=== PATIENT | female | born 1935 | race Caucasian/White ===

== ENCOUNTER → 2017-08-30 08:41 | Outpatient (CLI) | payer MEDICARE, OTHER, SELFPAY ==
--- NOTE | 2017-08-30 | DI.MG.S_ITS ---
BILATERAL DIGITAL SCREENING MAMMOGRAM 3D/2D WITH CAD: 08/30/2017 CLINICAL: Routine screening. Comparison is made to exams dated: 08/17/2016 mammogram, 08/17/2015 mammogram, and 08/12/2014 mammogram - [facility]. The tissue of both breasts is predominantly fatty. Current study was also evaluated with a Computer Aided Detection (CAD) system. No significant masses, calcifications, or other findings are seen in either breast. There has been no significant interval change. IMPRESSION: NEGATIVE There is no mammographic evidence of malignancy. A 1 year screening mammogram is recommended. NOTE: For mammograms, a report in lay terms will be sent to the patient. Approximately 15% of breast malignancies will not be visualized mammographically. In the management of a palpable breast mass, a negative mammogram must not discourage biopsy of a clinically suspicious lesion. Electronically Signed By: Caridad ramos/venus:08/30/2017 11:46:41 letter sent: Normal Exam ACR BI-RADS Category 1: Negative [id number]
== END ==
PROVIDERS: Visit Provider Family Medicine
DX: Z12.31 Encounter for screening mammogram for malignant neoplasm of breast (principal)
CPT/HCPCS: 77063; 77067

== ENCOUNTER → 2017-09-03 08:28 | Outpatient (CLI) | payer MEDICARE, OTHER, SELFPAY ==
[2017-09-03 09:29] LABS: Add Manual Diff / Slide Review NO; Basophils Percent Auto 1.2 % (0-2); Eosinophils Percent Auto 5.1 % (2-4); Hematocrit 46.4 % (36-46); Hemoglobin 15.7 g/dL (12.0-16.0); Lymphocytes Percent Auto 20.1 % (25-40); Mean Corpuscular HGB Conc 33.7 % (30-36); Mean Corpuscular Hemoglobin 31.5 PG (26-34); Mean Corpuscular Volume 93.5 fL (80-100); Monocytes Percent Auto 8.5 % (3-14); Neutrophils Absolute Auto 4600 /uL (3000-5900); Neutrophils Percent Auto 65.1 % (50-75); Platelet Count 225 X10^3/uL (150-400); Red Blood Cell Count 4.97 X10^6/uL (4.0-5.2); Red Cell Distribution Width 13.2 % (11.6-14.8)
[2017-09-03 09:52] LABS: Alanine Aminotransferase 41 IU/L (9-52); Albumin 4.1 g/dL (3.5-5.0); Albumin Globulin Ratio 1.2 (1.0-2.8); Alkaline Phosphatase 105 U/L (38-126); Aspartate Aminotransferase 35 IU/L (14-36); BUN Creatinine Ratio 22.5 (6-22); Bilirubin Total 0.7 mg/dL (0.2-1.3); Blood Urea Nitrogen 18 mg/dL (7-17); Calcium 9.3 mg/dL (8.4-10.2); Carbon Dioxide 28 mmol/L (22-32); Chloride 101 mmol/L (98-107); Cholesterol 184 mg/dL (140-199); Estimated Glomerular Filt Rate > 60.0 mL/min (>60); Globulin 3.4 g/dL (1.7-4.1); Glucose 146 mg/dL (80-110); HDL Cholesterol 41 mg/dL (40-60); HEMOLYSIS < 15 (0-50); LDL Cholesterol Calculated 111 mg/dL (<100); Potassium 4.6 mmol/L (3.4-5.1); Sodium 141 mmol/L (137-145); Total Protein 7.5 g/dL (6.3-8.2); Triglycerides 162 mg/dL (35-150)
[2017-09-03 10:21] LABS: Thyroid Stimulating Hormone 0.42 uIU/mL (0.47-4.68)
== END ==
PROVIDERS: Visit Provider Family Medicine
DX: I48.91 Unspecified atrial fibrillation (principal); I10 Essential (primary) hypertension; E05.90 Thyrotoxicosis, unspecified without thyrotoxic crisis or storm; K92.2 Gastrointestinal hemorrhage, unspecified; E04.1 Nontoxic single thyroid nodule; Z79.899 Other long term (current) drug therapy
CPT/HCPCS: 36415; 80053; 80061; 84443; 85025

== ENCOUNTER → 2018-09-09 13:31 | Outpatient (CLI) | payer MEDICARE, OTHER, SELFPAY ==
--- NOTE | 2018-09-09 | DI.MG.S_ITS ---
BILATERAL DIGITAL SCREENING MAMMOGRAM 3D/2D WITH CAD: 09/09/2018 CLINICAL: Routine screening. Comparison is made to exams dated: 08/30/2017 mammogram, 08/17/2016 mammogram, and 08/17/2015 mammogram - [facility]. There are scattered fibroglandular elements in both breasts. Current study was also evaluated with a Computer Aided Detection (CAD) system. There are benign calcifications in both breasts. No significant masses, calcifications, or other findings are seen in either breast. There has been no significant interval change. IMPRESSION: There is no mammographic evidence of malignancy. A 1 year screening mammogram is recommended. This exam was interpreted at Station ID: [id number]. NOTE: For mammograms, a report in lay terms will be sent to the patient. Approximately 15% of breast malignancies will not be visualized mammographically. In the management of a palpable breast mass, a negative mammogram must not discourage biopsy of a clinically suspicious lesion. Electronically Signed By: Aman power/venus:09/09/2018 17:25:35 letter sent: Normal Exam ACR BI-RADS Category 2: Benign Finding(s) 3342F
== END ==
PROVIDERS: PCP Family Medicine; Visit Provider Family Medicine
DX: Z12.31 Encounter for screening mammogram for malignant neoplasm of breast (principal)
CPT/HCPCS: 77063; 77067

== ENCOUNTER → 2019-07-02 11:58 | Outpatient (CLI) | payer MEDICARE, OTHER, SELFPAY ==
--- NOTE | 2019-07-02 | DI.CT.S_ITS ---
PROCEDURE: CT CHEST WO CON INDICATIONS: other specified disorders of bone TECHNIQUE: Noncontrast 5 mm thick sections acquired from the pulmonary apices to the posterior costophrenic angles. 1 mm lung window, 5 mm thick coronal and sagittal and 7 mm axial MIP reformats were then acquired. For radiation dose reduction, the following was used: automated exposure control, adjustment of mA and/or kV according to patient size. COMPARISON: [facility], CT, PE STUDY (CTA CHEST), 03/11/2014, 11:04. FINDINGS: Image quality: Excellent. Lungs and pleura: No acute air space opacities. Minimal linear scarring is noted within the lung parenchyma, there is no evidence of pulmonary fibrosis or emphysema. No pleural effusions or pneumothorax. Central and peripheral airways are patent and normal in caliber. Mediastinum: Heart size is normal. No pericardial effusion. No mediastinal adenopathy by size criteria. Thoracic aorta and central pulmonary arteries are normal in size. Esophagus is normal in caliber. No hiatal hernia. Bones and chest wall: No suspicious bony lesions. No vertebral body compression fractures. No axillary or supraclavicular adenopathy by size criteria. 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 Abdomen: Visualized upper abdominal solid organs and bowel loops appear normal in the absence of contrast. Mild nodularity at the inferior left adrenal gland, but stable over time from prior CT scanning in March 2014. IMPRESSION: Within the lung parenchyma peripherally, no source of shortness of breath was found. Heart size is not enlarged. Previously present large bilateral thyroid masses are absent, presumably associated with thyroidectomy. Note is made of mild lobular enlargement of the inferior aspect of the left thyroid lobe, previously present on contrast-enhanced CT scanning 03/11/14 and therefore no followup of this appearance is necessary. Dictated by: Clark Chambers M.D. on 07/02/2019 at 12:24 Approved by: Clark Chambers M.D. on 07/02/2019 at 12:30
--- NOTE | 2019-07-02 12:16 | DI.CT.S_ITS ---
PROCEDURE: CT KIDNEY URETER BLADDER (KUB) INDICATIONS: Gross hematuria TECHNIQUE: Noncontrast 5 mm thick sections acquired from the diaphragms to the symphysis. 5 mm thick coronal and sagittal reformats were then performed. For radiation dose reduction, the following was used: automated exposure control, adjustment of mA and/or kV according to patient size. COMPARISON: [facility], CT, CT-IVP, 11/10/2010, 11:06. [facility], CT, KIDNEY/ URETER/BLADDER, 01/25/2011, 14:12. [facility], CT, KIDNEY/ URETER/BLADDER, 03/05/2010, 6:46. FINDINGS: Image quality: Excellent. Lung bases: Lung bases are clear. Heart size is normal. Urinary system: Both kidneys are normal in size. No kidney stones on the right but the left kidney contains an ovoid 11 mm calculus that has internal radiodensity of 970 Hounsfield units. No right-sided hydronephrosis or perinephric fat stranding, but there is left-sided hydronephrosis and hydroureter without etiology identified. 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 Both ureters appear non-dilated throughout their expected courses. Bladder wall thickness is normal; no calcified bladder stones. Other solid organs: Liver is normal in size. Gallbladder appears normal. Pancreas is normal in contours. Spleen is normal in size. No adrenal nodules. Peritoneum and bowel: Unenhanced bowel loops demonstrate normal wall thickness and caliber. No free fluid or air. Nodes and vessels: No retroperitoneal or mesenteric adenopathy by size criteria. Aorta and inferior vena cava are normal in caliber. Abdominal wall: No ventral hernias. Pelvis: No free pelvic fluid. No inguinal hernias or adenopathy. Bones: No suspicious bony lesions. No vertebral body compression fractures. IMPRESSION: 1. Large ovoid calculus measuring up to 11 mm within the collecting system of the left kidney. The left kidney is smaller than that on the right indicating some degree of chronic atrophy. Recurrent urinary tract infections and obstruction could explain that appearance. The radiodensity of this calculus is up to 970 Hounsfield units. 2. Hydronephrosis and hydroureter on the left is mild to moderate, and extends almost to the bladder margin. The ureter then enters the bladder wall has a nondistended structure, and etiology of this transition point just proximal to the bladder wall is uncertain. A calculus in that area is not found. A neoplasm could be present. A CT IVP rather than a CT KUB generally provides additional diagnostic information inpatient in the age category or having symptoms of potential underlying neoplasm. 3. 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 Urology consultation and consideration of retrograde evaluation is recommended given the history of gross hematuria and termination of left ureteral dilatation without identifiable etiology just behind the lateral margin. Dictated by: Clark Chambers M.D. on 07/02/2019 at 12:30 Approved by: Clark Chambers M.D. on 07/02/2019 at 12:38
== END ==
PROVIDERS: PCP Family Medicine; Referring Provider Internal Medicine; Visit Provider Internal Medicine
DX: M89.8X8 Other specified disorders of bone, other site (principal); R31.0 Gross hematuria; N13.2 Hydronephrosis with renal and ureteral calculous obstruction; Z96.642 Presence of left artificial hip joint
CPT/HCPCS: 71250; 74176

== ENCOUNTER → 2019-08-01 13:02 | Outpatient (CLI) | payer MEDICARE, OTHER, SELFPAY ==
[2019-08-02 21:39] LABS: COVID19 Sendout Not Detected (Not Detect)
== END ==
PROVIDERS: PCP Family Medicine; Visit Provider Registered Nurse
DX: Z01.812 Encounter for preprocedural laboratory examination (principal)
CPT/HCPCS: 87635

== ENCOUNTER 2019-08-04 11:29 | Day surgery (SDC) | payer MEDICARE, OTHER, SELFPAY ==
[2019-08-04] VITALS (10 sets, daily range): BP systolic 105–140; BP diastolic 64–95; PULSE 57–74; RESP 10–20; TEMP 36.4–37.1; O2SAT 94–99; BMI 42.6
--- NOTE | 2019-08-04 | DI.RAD.S_ITS ---
PROCEDURE: XR ABDOMEN 1V INDICATIONS: LEFT RETROGRADE PYELOGRAM TECHNIQUE: One view of the abdomen acquired. COMPARISON: [facility], CR, ABDOMEN 1 VIEW, 11/10/2010, 10:59. [facility], CT, CT KIDNEY URETER BLADDER (KUB), 07/02/2019, 12:03. FINDINGS: Intraoperative fluoroscopic images demonstrate retrograde pyloric Gram. The distal ureter is partially obscured secondary to what appears to be external ureteral contrast extravasation. IMPRESSION: Retrograde pyelogram. Recommend correlation real-time operative report. Dictated by: Abi Monreal M.D. on 08/04/2019 at 20:04 Approved by: Abi Monreal M.D. on 08/04/2019 at 20:06
[2019-08-04] MEDS: GABAPENTIN 300 MG CAPSULE PO (12:31)
[2019-08-04] MEDS: ACETAMINOPHEN 325 MG TABLET 975 MG PO (12:31)
[2019-08-04] MEDS: LACTATED RINGERS 1,000 ML 42 ML IV ×2 (12:32→18:20)
--- NOTE | 2019-08-04 13:41 | PM.PREOP ---
Pre-operative Note Interval Note History & Physical reviewed/Exam performed by Physician: Yes Changes to H&P: No H&P completed within 30 days and has changed as indicated here:: There are no changes to the history and physical examination scanned in on file.
--- NOTE | 2019-08-04 16:46 | SUR.PREOP ---
Late entry: 1500, pt made aware of delay in surgery start, Bill her called and verified.
--- NOTE | 2019-08-04 16:55 | SUR.PREOP ---
given an updated time of [address] Anderson spoke with pt at bedside.
[2019-08-04] MEDS: CIPROFLOXACIN 400 MG/200 ML PIGGYBACK 200 MG IV (17:15)
--- NOTE | 2019-08-04 18:14 | SUR.OPER ---
Lithotomy on padded OR bed, head on pillow, arms secured on padded arm boards at <90 degrees abduction. Legs secured in padded yellow fins stirrups.
[2019-08-04] MEDS: IOPAMIDOL 15 ML VIAL INJ (18:23)
--- NOTE | 2019-08-04 18:35 | P.OP_ITS ---
Operative Date/Time/Diagnoses Date of procedure: 08/04/19 Time of procedure: 18:35 Pre-op diagnosis: 1. 1.1 x 1.5 cm left renal calculus. 2. History of recurrent Enterococcus UTI. 3. Left hydronephrosis. Post-op diagnosis: same Procedure & Clinicians Procedure: 1. Cystoscopy and left retrograde pyelogram. 2. Cystoscopy and attempted left ureteral stent placement. Same procedure as scheduled: No (High-grade left distal ureteral obstruction approximately 3 cm above left U) Indications: 1. 1.1 x 1.5 cm left renal pelvic calculus. 2. History of recurrent Enterococcus UTI. 3. Left hydronephrosis. Surgeon: Leopoldo Cho Click Yes if Unassisted: Yes Anesthesia Type: General Operative Notes Findings: 1. Moderate sized urethral caruncle association with atrophic vaginitis. 2.Bladder urothelium markedly erythematous. 3. Urine grossly bloody and grossly purulent. 4. There is at least moderate high hydronephrosis above the level of the left iliac vasculature. The caliber of the very distal most ureter appears likely normal. No definite filling defect was seen. 5. Despite multiple attempts a left ureteral guidewire and left ureteral Glidewire were not able to be passed proximally for purposes of dilation ureteroscopy etc. Closure Type: not applicable Specimen(s): other (Urine for culture and sensitivity) Estimated Blood Loss (mL): 2 Blood products transfused: none Tourniquet time (min): 0 Procedure in detail: Patient was positioned supine and was administered general anesthesia. She was then repositioned in semi lithotomy in the lower abdomen genitalia and groin were prepped and draped in sterile fashion. Next the 22 [place] panendoscope was passed in the lower urinary tract with the findings as described above. A 0.35 sensor tip guidewire was then advanced into the left ureteral orifice and advanced proximally but was met with obstruction as described above the tip continued to curve upon itself and did not allow passage.. A 5 [place] pollock catheter was then backloaded over the Sensor tip wire to provide some stability within the ureteral lumen. Again careful manipulation of the wire failed the provide more proximal access. The Sensor wire was then backloaded out the [place] catheter and now a retrograde pyelogram was performed with the findings as described above. A 0.35 glide wire was then selected. It was advanced under direct and fluoroscopic visualization to the level of left distal ureter perhaps just distal to the left iliac vasculature. Again the wire could not be advanced successfully more proximally despite multiple attempts. Finally decision was made to not to make any further attempts at providing retrograde internal left collecting system drainage. The urine sample and culture will be followed up on as available. The patient was then repositioned in supine, awakened, and transferred to a gurney in stable condition. Complications: none Post-operative Condition: stable Disposition: PACU Plan for aftercare: Discharge home
--- NOTE | 2019-08-04 19:49 | SUR.PHASEII ---
Discharged patient home with in stable condition. All instructions reviewed with patient and . Patient ambulatory to bathroom to void with minimal assistance prior to discharge. Escorted patient to car. All belongings returned to patient.
== END 2019-08-04 19:50 | disposition home or self-care (01) ==
PROVIDERS: PCP Family Medicine; Referring Provider Specialist; Visit Provider Specialist
PROC: 0TF78ZZ Fragmentation in Left Ureter, Via Natural or Artificial Opening Endoscopic (ICD-10-PCS; CPT 52353; principal; 2019-08-04 14:00)
DX: N20.0 Calculus of kidney (principal); N13.30 Unspecified hydronephrosis; Z87.440 Personal history of urinary (tract) infections; Z87.898 Personal history of other specified conditions; N95.2 Postmenopausal atrophic vaginitis; R31.0 Gross hematuria; Z53.09 Procedure and treatment not carried out because of other contraindication
CPT/HCPCS: 52353; 74018; 76000; 87086; J0744; J1100; J2405; J2704

== ENCOUNTER → 2019-08-06 12:41 | Outpatient (CLI) | payer MEDICARE, OTHER, SELFPAY ==
--- NOTE | 2019-08-06 | DI.CT.S_ITS ---
PROCEDURE: CT ABDOMEN PELVIS WO/W CON INDICATIONS: CALCULUS OF URETER TECHNIQUE: Optional 5 mm thick noncontrast images acquired from the diaphragm to the symphysis pubis. After the administration of intravenous contrast, 5 mm thick images acquired from the diaphragm to the symphysis pubis after a 10-minute delay. 2 mm thick coronal and sagittal reformats were then performed of the kidneys and ureters. For radiation dose reduction, the following was used: automated exposure control, adjustment of mA and/or kV according to patient size. COMPARISON: [facility], CT, CT KIDNEY URETER BLADDER (KUB), 07/02/2019, 12:03. FINDINGS: Image quality: Excellent. Lung bases: Lung bases are clear. Heart size is normal. Urinary system: Both kidneys are normal in size, with asymmetric left greater than right mild to moderate hydronephrosis and also left greater than right hydroureter extending to the bladder level. There is no right-sided nephrolithiasis on pre-contrast images but there is a left-sided calculus that measures 7 x 10 mm, with internal radiodensity 944 Hounsfield units. No perinephric fat stranding. There is normal bilateral renal enhancement. Renal calyces appear normal in morphology when filled with contrast. Opacified portions of both ureters demonstrate normal caliber. Bladder wall thickness is normal. No calcified bladder stones. Other solid organs: Liver is normal in size and enhancement. Gallbladder appears normal. Biliary system is non dilated. Pancreas enhances normally. Spleen is normal in size and enhancement. No adrenal nodules. Peritoneum and bowel: Bowel loops demonstrate normal wall thickness and caliber. No free fluid or air. Nodes and vessels: No retroperitoneal or mesenteric adenopathy by size criteria. Aorta and inferior vena cava are normal in size. Abdominal wall: No ventral hernias. Pelvis: No pathologic free pelvic fluid. No inguinal hernias or adenopathy. The hydroureter present bilaterally greater on the left than the right extends to the bladder level. 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 This renders accurate assessment of the far distal tip of each ureter somewhat limited but no definite calculus in that area bilaterally is found. Bones: No suspicious bony lesions. No vertebral body compression fractures. IMPRESSION: Unexplained finding of bilateral hydronephrosis and hydroureter, left slightly greater than right, extending to the bladder level where metal artifact from left hip arthroplasty partially obscured as clear visualization. The quality of visualization, however, appears to exclude presence of a calculus at the far distal aspect of each ureter, and therefore it remains possible that a neoplastic process explains the findings. This pattern was previously seen in late June earlier this year, and the current study allows better visualization of the distal ureters. Again, there is concern that one or both of these areas could be involved by early neoplasm. Retrograde evaluation with cystoscopy and ureterography likely is warranted. Dictated by: Clark Chambers M.D. on 08/06/2019 at 16:52 Approved by: Clark Chambers M.D. on 08/06/2019 at 17:02
[2019-08-06 13:33] LABS: BUN Creatinine Ratio 23.9 (6-22); Blood Urea Nitrogen 28 mg/dL (7-17); Carbon Dioxide 30 mmol/L (22-32); Chloride 102 mmol/L (98-107); Estimated Glomerular Filt Rate 44.2 mL/min (>60); Glucose 88 mg/dL (80-110); HEMOLYSIS < 15 (0-50); Potassium 4.6 mmol/L (3.4-5.1); Sodium 140 mmol/L (137-145)
== END ==
PROVIDERS: PCP Family Medicine; Referring Provider Specialist; Visit Provider Specialist
DX: N13.2 Hydronephrosis with renal and ureteral calculous obstruction (principal); Z96.642 Presence of left artificial hip joint
CPT/HCPCS: 36415; 74178; 80048; Q9967

== ENCOUNTER → 2019-08-27 10:16 | Outpatient (CLI) | payer MEDICARE, OTHER, SELFPAY ==
[2019-08-27 12:54] LABS: Appearance Urine UA CLOUDY; Bilirubin Urine UA NEGATIVE (NEGATIVE); Color Urine UA YELLOW; Glucose Urine UA NEGATIVE (Negative); Ketones Urine UA NEGATIVE (NEGATIVE); Leukocyte Esterase Urine UA 3+ (NEGATIVE); Nitrite Urine UA NEGATIVE (Negative); Occult Blood Urine UA 3+ (Negative); Protein Urine UA 1+ (Negative); Urobilinogen Urine UA 0.2 E.U./dL (0.2)
[2019-08-27 13:15] LABS: Bacteria Urine Many (>30); Culture Indicated Urine Specimen Cultured; RBC Urine 30-100/HPF (0-5/HPF); WBC Urine >100/HPF (0-5/HPF)
== END ==
PROVIDERS: PCP Family Medicine; Referring Provider Specialist; Visit Provider Specialist
DX: N39.0 Urinary tract infection, site not specified (principal)
CPT/HCPCS: 81001; 87077; 87086

== ENCOUNTER → 2019-09-04 14:04 | Outpatient (CLI) | payer MEDICARE, OTHER, SELFPAY ==
--- NOTE | 2019-09-04 14:05 | DI.NM.S_ITS ---
PROCEDURE: NM RENAL FUNCTION W LASIX RADIOPHARMACEUTICAL: 10 mCi Tc-99m MAG3 IV and 40 mg furosemide IV. INDICATIONS: Kidney Stone TECHNIQUE: The patient was hydrated orally before the examination was begun. After intravenous administration of Tc-99m MAG3, posterior abdominal radionuclide angiogram and sequential (1 minute each frame) renal images were obtained. A time-activity curve for each kidney was generated and analyzed. To evaluate for obstruction, the patient was given 40 mg furosemide via slow intravenous injection after the start of the examination. Sequential images were obtained for up to an additional 20 minutes. COMPARISON: [facility], [place], RENAL IMAGING WITH LASIX, 05/11/2010, 11:22. [facility], CT, CT ABDOMEN PELVIS WO/W CON, 08/06/2019, 15:12. FINDINGS: Perfusion: There is normal vascular flow to both kidneys. Morphology: Both kidneys are normal in size and shape. There are dilated collecting systems bilaterally. The ureters and bladder fill with tracer, and appear normal. Function: Both kidneys demonstrate delayed cortical tracer uptake and excretion. The [id number] activity for right kidney is 6 minutes and left kidney 15.5 minutes (normal range 3-5 minutes). The right kidney contributes 74% of total renal function. The left kidney contributes 26% of total renal function. Lasix stimulation: After diuretic administration, there is mildly delayed clearance of tracer activity from the right renal collecting systems in right kidney, and delayed clearance from the left kidney. The half-time of emptying of tracer activity from the right pelvicaliceal system is 14 minutes. The half-time of emptying from the left pelvicaliceal system is >20 minutes (unableto calcuate due to dilated left renal collection system and not enough tracer activity in renal pelvis. Normal emptying half-times are less than 10 minutes; borderline ranges are from 10 to 20 minutes. IMPRESSION: 1. Significantly decreased left renal function secondary to obstructive nephropathy. The left kidney contributes 26% of total renal function. The T1/2 of the left kidney is greater than 20 minutes. Compared with the last exam on 05/11/2010, the left renal function has further decline (previously left kidney contributes 32.7% of total function). 2. Right kidney also has mildly decreased function. The T1/2 of the right kidney is 14 minutes. Right kidney contributes 74% of total function. Dictated by: Shahzad Fournier M.D. on 09/04/2019 at 15:58 Approved by: Shahzad Fournier M.D. on 09/04/2019 at 17:30
== END ==
PROVIDERS: PCP Family Medicine; Referring Provider Family Medicine; Visit Provider Specialist
DX: N13.8 Other obstructive and reflux uropathy (principal); N20.0 Calculus of kidney
CPT/HCPCS: 78708; A9562

== ENCOUNTER → 2019-09-11 10:28 | Outpatient (CLI) | payer MEDICARE, OTHER, SELFPAY | PROVIDERS: PCP Family Medicine; Visit Provider Specialist | DX: R31.0 Gross hematuria (principal); N95.2 Postmenopausal atrophic vaginitis; N13.9 Obstructive and reflux uropathy, unspecified; Z87.440 Personal history of urinary (tract) infections | CPT/HCPCS: 51701; 87086; 99214 ==

== ENCOUNTER → 2019-09-12 14:19 | Outpatient (CLI) | payer MEDICARE, OTHER, SELFPAY ==
[2019-09-13 09:19] LABS: COVID19 Sendout Not Detected (Not Detect)
== END ==
PROVIDERS: PCP Family Medicine; Visit Provider Physician Assistant
DX: Z01.812 Encounter for preprocedural laboratory examination (principal)
CPT/HCPCS: 87635

== ENCOUNTER 2019-09-15 13:12 | Day surgery (SDC) | payer MEDICARE, OTHER, SELFPAY ==
[2019-09-11 13:36] VITALS: BMI 42.3
[2019-09-15] VITALS (9 sets, daily range): BP systolic 116–146; BP diastolic 63–80; PULSE 62–77; RESP 15–20; TEMP 36.1–36.6; O2SAT 94–98; BMI 42.3
--- NOTE | 2019-09-15 | PATH_ITS ---
[facility] Accession Number: [id number] . 01 Material submitted: . PART A: bladder - LEFT BLADDER WALL PART B: bladder - RIGHT BLADDER WALL PART C: bladder - POSTERIOR BLADDER WALL . 02 Diagnosis: A-C: Left, Right, Posterior Bladder Wall, Biopsies: Chronic active cystitis. Muscularis propria present in each part. No evidence neoplasm. MRV 09/17/2019 1502 Local . 02 Comment: As part of routine quality assurance/r&d lab technician, Dr. Moura has reviewed this case and agrees with the diagnosis above. . 02 Electronically signed: . Cash Tello MD, PhD, Pathologist NPI- [id number] . 01 Gross description: . Part A: LEFT BLADDER WALL: Received in formalin are 2 fragment(s) of pederson, soft tissue measuring 0.2 x 0.2 x 0.2 cm to 0.3 x 0.3 x 0.3 cm submitted entirely in 12 cassette(s) Part B: RIGHT BLADDER WALL: Received in formalin are 2 fragment(s) of pederson, soft tissue measuring 0.2 x 0.2 x 0.1 cm to 0.3 x 0.3 x 0.3 cm submitted entirely in 1 cassette(s) Part C: POSTERIOR BLADDER WALL: Received in formalin are 2 fragment(s) of pederson, soft tissue measuring 0.2 x 0.2 x 0.2 cm to 0.3 x 0.3 x 0.3 cm submitted entirely in 1 cassette(s) /VARUN 09/16/2019 0125 Local . 02 Microscopic: . A-C: Sections from each part are of predominantly denuded urothelial mucosa with chronic mild active inflammation and reactive epithelial changes. Muscularis propria is present in each part. To evaluate the urothelium, a limited panel of immunohistochemical stains is performed on each part, each with an appropriately positive control. Each biopsy shows no abberent CK20 immunoreactivity. Each biopsy shows scattered p53 positive urothelial cells, consistent with a wild type pattern. The overall histology and immunophenotype are consistent with reactive urothelial atypia. There is no evidence of neoplasm. . * This test was developed and its performance characteristics determined by [facility]. It has not been cleared or approved by the U.S. Food and Drug Administration. The FDA has determined that such clearance or approval is not necessary. This test is used for clinical purposes. It should not be regarded as investigational or for research. . 02 Pathologist provided ICD-10: N13.5, N30.20 . 02 CPT . 896261, 571248, 980766, U02463, [id number] Performed at: 01 [facility] [address] [id number] MD Irwin Castellon MD Phone: [phone] Performed at: 02 [facility] [address] [place] [id number] MD Jennifer Moura MD Phone: [phone]
[2019-09-15] MEDS: LACTATED RINGERS 1,000 ML 42 ML IV (14:03)
--- NOTE | 2019-09-15 14:53 | PM.PREOP ---
Pre-operative Note Interval Note History & Physical reviewed/Exam performed by Physician: Yes Changes to H&P: No
[2019-09-15] MEDS: CEFAZOLIN 2 GM/100 ML FROZ.PIGGY IV (15:00)
--- NOTE | 2019-09-15 15:52 | SUR.OPER ---
Lithotomy on padded OR bed, head on pillow, arms secured on padded arm boards at <90 degrees abduction. Legs secured in padded yellow fins stirrups.
[2019-09-15] MEDS: WATER FOR INJECTION,STERILE 20 ML, mitoMYcin 20 MG INTRAVESIC (15:57)
[2019-09-15] MEDS: BELLADONNA/OPIUM SUPPOSITORIES 1 EACH PR (15:58)
--- NOTE | 2019-09-15 16:03 | PM.OP.1 ---
Operative Date/Time/Diagnoses Date of procedure: 09/15/19 Time of procedure: 16:03 Pre-op diagnosis: Hematuria Post-op diagnosis: same Procedure & Clinicians Procedure: 1. Cystoscopy and bladder biopsy. 2. Cystoscopy and full duration. 3. Cystoscopy and instillation mitomycin-C (20 mg). Same procedure as scheduled: No (Could not visualize either ureteral orifice.) Indications: 1. Hematuria. 2. Left distal ureteral obstruction. 3. Left renal calculus. 4. History of recurrent UTI. Click Yes if Unassisted: Yes Anesthesia Type: General Operative Notes Findings: 1. Hemorrhagic urothelial lining of the bladder-patchy 2. Above changes obscured ability to visualize either ureteral orifice or cannulate the left ureteral orifice. Closure Type: not applicable Specimen(s): other (1. Right lateral wall bladder. 2. Left lateral wall bladder. 3. Posterior wall bladder. ) Applied: catheter (20. [place]ani Aragon catheter.) Estimated Blood Loss (mL): 5 Blood products transfused: none Tourniquet time (min): 0 Procedure in detail: The patient was positioned supine and administered general anesthesia. The lower abdomen genitalia and groin were then prepped and draped in sterile fashion. The 22 [place] panendoscope was then passed in the lower urinary tract with the findings as described above. Despite numerous gentle fillings and emptying of the bladder and use of a [place] catheter with a 0.25 glidewire, the left ureteral orifice could not be identified or cannulated. A similar search for purposes of trying to estimate the vicinity of the left ureteral orifice was undertaken to visualize the right ureteral orifice. Same visualization difficulties were encountered. Further attempts to cannulate the left ureteral orifice or located were abandoned. The cold cup biopsy forceps were then utilized to obtain 2 fuels sales representative samples from each the left lateral wall posterior wall and right lateral wall of the bladder. These were labeled as to the site of the procurement and sent to pathology for routine gross and microscopic examination. The biopsy sites were then cauterized with the Bugbee for excellent hemostasis. The bladder was then left partially filled and all instrumentation was removed. A 20 [place] Aragon catheter was then selected, and inserted lower urinary tract. The balloon was inflated to 10 cc and the bladder contents drained. A 20 cc solution containing 20 mg mitomycin C were then instilled in the bladder and a catheter plug placed in the outflow for anticipated to our postoperative retention. The patient was then repositioned in supine, transferred to [facility], and transferred to recovery in stable condition. Complications: none Post-operative Condition: stable Disposition: PACU Plan for aftercare: Discharge home.
[2019-09-15] MEDS: OXYCODONE/ACETAMINOPHEN 5/325 TABLET 1 TAB PO (16:39)
--- NOTE | 2019-09-15 18:30 | SUR.PHASEII ---
Catheter teaching and care done with pt and pt spouse. Provided pt with supplies and written instructions for catheter care. Pt spouse and pt verbalized understanding of instructions.
== END 2019-09-15 18:31 | disposition home or self-care (01) ==
PROVIDERS: PCP Family Medicine; Referring Provider Specialist; Visit Provider Specialist
PROC: (CPT 52204; principal; 2019-09-15 14:30)
DX: N30.20 Other chronic cystitis without hematuria (principal); N13.5 Crossing vessel and stricture of ureter without hydronephrosis; Z87.440 Personal history of urinary (tract) infections; N20.0 Calculus of kidney; I48.91 Unspecified atrial fibrillation; I10 Essential (primary) hypertension; N13.9 Obstructive and reflux uropathy, unspecified; N95.2 Postmenopausal atrophic vaginitis
CPT/HCPCS: 52204; J0690; J1100; J2405; J2704; J3010; J9280

== ENCOUNTER → 2019-10-10 14:47 | Outpatient (CLI) | payer MEDICARE, OTHER, SELFPAY ==
--- NOTE | 2019-10-10 14:48 | DI.RAD.S_ITS ---
PROCEDURE: XR KUB INDICATIONS: Kidney stone TECHNIQUE: One view of the abdomen acquired. COMPARISON: [facility], CR, KUB XRAY (1 VIEW ABDOMEN), 07/05/2011, 9:11. [facility], CR, KUB XRAY (1 VIEW ABDOMEN), 09/21/2010, 11:09. FINDINGS: Surgical changes and devices: Double pigtail left ureteral stent in normal position considering patient prominent convex leftward scoliosis centered at the L 1-L2 level of the LS spine. A calculus is present adjacent to the medial border of the upper aspect of this catheter, measuring approximately 1 cm in maximal craniocaudad dimension.. Bowel: Bowel gas pattern is normal. Soft tissues: No suspicious abdominal calcifications. Visualized solid organ contours appear normal in size. Bones: No suspicious bony lesions. IMPRESSION: 1 cm calculus in the expected region of the left renal pelvis immediately adjacent to the upper course of a left-sided double pigtail ureteral catheter in normal position considering prominent scoliosis. Dictated by: Clark Chambers M.D. on 10/10/2019 at 15:44 Approved by: Clark Chambers M.D. on 10/10/2019 at 15:46
== END ==
PROVIDERS: PCP Family Medicine; Referring Provider Specialist; Visit Provider Specialist
DX: N20.0 Calculus of kidney (principal); M41.86 Other forms of scoliosis, lumbar region; Z96.0 Presence of urogenital implants
CPT/HCPCS: 74018

== ENCOUNTER → 2019-10-14 13:39 | Outpatient (CLI) | payer MEDICARE, OTHER, SELFPAY | PROVIDERS: PCP Family Medicine; Visit Provider Specialist | DX: N39.0 Urinary tract infection, site not specified (principal); N20.0 Calculus of kidney; N95.2 Postmenopausal atrophic vaginitis; Z87.440 Personal history of urinary (tract) infections | CPT/HCPCS: 81002; 87086; 99214 ==

== ENCOUNTER → 2019-10-15 14:35 | Outpatient (CLI) | payer MEDICARE, OTHER, SELFPAY ==
[2019-10-16 13:15] LABS: COVID19 Sendout Not Detected (Not Detect)
== END ==
PROVIDERS: PCP Family Medicine; Visit Provider Nurse Practitioner
DX: Z11.59 Encounter for screening for other viral diseases (principal)
CPT/HCPCS: 87635

== ENCOUNTER 2019-10-17 12:52 | Day surgery (SDC) | payer MEDICARE, OTHER, SELFPAY ==
[2019-10-14 15:04] VITALS: BMI 42.3
[2019-10-17] VITALS (7 sets, daily range): BP systolic 109–140; BP diastolic 72–91; PULSE 74–104; RESP 12–19; TEMP 36.5–37.2; O2SAT 92–98; BMI 41.3
[2019-10-17] MEDS: LACTATED RINGERS 1,000 ML 42 ML IV (13:44)
--- NOTE | 2019-10-17 14:11 | PM.PREOP ---
Pre-operative Note Interval Note History & Physical reviewed/Exam performed by Physician: Yes Changes to H&P: No
--- NOTE | 2019-10-17 14:51 | SUR.OPER ---
Lithotomy on padded OR bed, head on pillow, arms secured on padded arm boards at <90 degrees abduction. Legs secured in padded yellow fins stirrups. On ESWL hammock table
--- NOTE | 2019-10-17 15:22 | PM.OP.1 ---
Operative Date/Time/Diagnoses Date of procedure: 10/17/19 Time of procedure: 15:28 Pre-op diagnosis: 1. Left renal calculus 2. Left renal colic 3. Hematuria Post-op diagnosis: same Procedure & Clinicians Procedure: Left extracorporeal shockwave lithotripsy (maximal power level 7.0 x 2000 shocks). Same procedure as scheduled: Yes Indications: 1. Left renal calculus 2. Left renal colic 3. Hematuria Surgeon: Leopoldo Cho Click Yes if Unassisted: Yes Anesthesia Type: General Operative Notes Findings: Left renal calculus and left ureteral stent as depicted in preoperative imaging. Closure Type: not applicable Specimen(s): none sent Estimated Blood Loss (mL): 0 Blood products transfused: none Tourniquet time (min): 0 Procedure in detail: Patient was positioned supine and administered general anesthesia. The above-described stone was localized in the X, Y, and Z plane. Lithotripsy was then commenced at minimal power level for total of 200 shocks. A 2 minutes pause was then conducted. Lithotripsy was then resumed in the power level was gradually increased to 7.0. The stone and its fragments were really localized during the treatment as indicated. At conclusion of the treatment there was excellent radiographic evidence of stone comminution. Complications: none Post-operative Condition: stable Disposition: PACU Plan for aftercare: Home
[2019-10-17] MEDS: FUROSEMIDE 40 MG/4 ML VIAL 20 MG IV (15:40)
--- NOTE | 2019-10-17 16:39 | SUR.PHASEII ---
Patient incontinent, dripping urine continuously. Patient reported incontinence is normal but is currently having more than normal. Placed on a bedpan, patient voided. Pad placed under patient. Urine strained, no sediment noted.
--- NOTE | 2019-10-17 17:58 | SUR.PHASEII ---
1700 patient passed a small BM and another void. Strained urine but no fragments noted. Strainer and urine cup sent home with patient.
== END 2019-10-17 17:07 | disposition home or self-care (01) ==
PROVIDERS: PCP Family Medicine; Referring Provider Specialist; Visit Provider Specialist
PROC: (CPT 50590; principal; 2019-10-17 14:15)
DX: N20.0 Calculus of kidney (principal); N95.2 Postmenopausal atrophic vaginitis; Z87.440 Personal history of urinary (tract) infections; I10 Essential (primary) hypertension; G47.33 Obstructive sleep apnea (adult) (pediatric); I48.91 Unspecified atrial fibrillation
CPT/HCPCS: 50590; J1940; J2250; J2704; J3010

== ENCOUNTER → 2019-10-27 09:48 | Outpatient (CLI) | payer MEDICARE, OTHER, SELFPAY ==
--- NOTE | 2019-10-27 09:50 | DI.RAD.S_ITS ---
PROCEDURE: XR KUB INDICATIONS: nephrolithiasis TECHNIQUE: One view of the abdomen acquired. COMPARISON: [facility], , XR KUB, 10/10/2019, 14:39. FINDINGS: Surgical changes and devices: Left ureteral stent. Left hip arthroplasty.. Mild stool. No transition point identified. Multiple small calcifications seen in the region of the proximal portion of the left ureteral stent, and possibly the lower pole of the left kidney. These measure up to 3-4 mm. Multiple pelvic phleboliths . Bones: No suspicious bony lesions. Scoliosis and discogenic changes. IMPRESSION: Status post placement of left ureteral catheter. Multiple small calcific fragments projecting in the region of the left kidney and proximal segment of the left ureteral stent. Dictated by: Arturo Rojas M.D. on 10/27/2019 at 12:53 Approved by: Arturo Rojas M.D. on 10/27/2019 at 12:57
== END ==
PROVIDERS: PCP Family Medicine; Referring Provider Specialist; Visit Provider Specialist
DX: N20.0 Calculus of kidney (principal); Z96.0 Presence of urogenital implants; Z96.642 Presence of left artificial hip joint
CPT/HCPCS: 74018

== ENCOUNTER → 2019-12-08 11:00 | Outpatient (CLI) | payer MEDICARE, OTHER, SELFPAY ==
--- NOTE | 2019-12-08 11:01 | DI.RAD.S_ITS ---
PROCEDURE: XR KUB INDICATIONS: nephrolithiasis TECHNIQUE: One view of the abdomen acquired. COMPARISON: [facility], , XR KUB, 10/27/2019, 9:52. FINDINGS: Surgical changes and devices: . There is interval removal of previously noted left-sided ureteral stent. Patient is status post left total hip arthroplasty. Bowel: Bowel gas pattern is normal. Soft tissues: Small calcifications are again seen projecting in the region of mid to lower pole left kidney not significantly changed in size and appearance from previous study. No definite ureteral calcification is seen. Likely phleboliths are seen in lower pelvis Visualized solid organ contours appear normal in size. Bones: No suspicious bony lesions. S-shaped scoliosis of visualized thoracic and lumbar spine is seen, not significantly changed from prior study. IMPRESSION: 1. Normal removal of left-sided ureteral stent. Small calcifications seen in the region of mid to lower pole left kidney. Likely phleboliths are noted in left lower pelvis. No definite ureteral stone is seen. Dictated by: Dominick Ram M.D. on 12/08/2019 at 13:27 Approved by: Dominick Ram M.D. on 12/08/2019 at 13:29
== END ==
PROVIDERS: PCP Family Medicine; Referring Provider Specialist; Visit Provider Specialist
DX: N20.0 Calculus of kidney (principal)
CPT/HCPCS: 74018

== ENCOUNTER → 2019-12-18 16:27 | Outpatient (CLI) | payer MEDICARE, OTHER, SELFPAY | PROVIDERS: PCP Family Medicine; Visit Provider Specialist | DX: N39.0 Urinary tract infection, site not specified (principal); N20.0 Calculus of kidney; R31.9 Hematuria, unspecified; N95.2 Postmenopausal atrophic vaginitis; R32 Unspecified urinary incontinence; Z87.440 Personal history of urinary (tract) infections | CPT/HCPCS: 81002; 87086; 99214 ==

== ENCOUNTER → 2020-02-03 15:39 | Outpatient (CLI) | payer MEDICARE, OTHER, SELFPAY | PROVIDERS: PCP Family Medicine; Visit Provider Obstetrics & Gynecology | DX: R32 Unspecified urinary incontinence (principal); R82.90 Unspecified abnormal findings in urine; Z87.440 Personal history of urinary (tract) infections | CPT/HCPCS: 87077; 87086 ==

== ENCOUNTER → 2020-02-11 11:25 | Outpatient (CLI) | payer MEDICARE, OTHER, SELFPAY ==
--- NOTE | 2020-02-11 12:32 | DIET.PN ---
Diabetes Intake: Initial Assessment Assess: Ms. Bynum is a 84 yof referred for recent diagnosis of type 2 diabetes. She was recently placed on metformin, but admits she forgets to take it more often than she remembers. She is not able to exercise due to back issues and incontinence. She endorses decreased renal function secondary to obstructive nephropathy. Labs: Per pt report: A1c: 7.6 Meds: Diet: per 24 hr recall: B: oatmeal w/ dried fruit; eggs w/toast large glass of fruit juice L: chicken/veg/rice soup D: chicken breast, sweet potato, cooked veg Sn: mixed nuts Wt: 209lb Ht: 58in BMI: 43.7 BP: 132/84 DX: Altered nutrition related laboratory values related to impaired glucose metabolism, lack of previous exposure to nutrition information as evidenced by pt report, diagnosis of diabetes, previous diet high in refined carbohydrates. Intervention: 1. Completed intake assessment. Discussed barriers to care. 2. Discussed pathophysiology of diabetes. Reviewed A1c and its correlation to blood glucose numbers. Discussed recommended BG ranges. 3. Discussed importance of self-monitoring, how often, and when to check. 4. Reviewed hyper/hypoglycemia and treatment. 5. Reviewed safe disposal of equipment (strip/lancets/insulin needles). 6. Created SMART goals for pt self-care and success. 7. Discussed program curriculum outline and class needs based on individual goals. SMART Goals: Pt would like to lose 20 lb (10% weight) in the next 3 months to better dietary habits including portion control, carb consistency and label reading. Monitor/Evaluate: Pt will attend full DSME program. Basic Nutrition class scheduled for 03/02. El appts only.
== END ==
PROVIDERS: PCP Family Medicine; Referring Provider Family Medicine; Visit Provider Family Medicine
DX: E11.21 Type 2 diabetes mellitus with diabetic nephropathy (principal); E66.9 Obesity, unspecified; R32 Unspecified urinary incontinence; Z79.84 Long term (current) use of oral hypoglycemic drugs; Z68.41 Body mass index [BMI] 40.0-44.9, adult; Z71.3 Dietary counseling and surveillance
CPT/HCPCS: G0108

== ENCOUNTER → 2020-02-19 14:08 | Outpatient (CLI) | payer MEDICARE, OTHER, SELFPAY ==
[2020-02-19 14:16] LABS: Bacteria Urine None Seen; RBC Urine None Seen (0-5/HPF); WBC Urine None Seen (0-5/HPF)
[2020-02-19 14:37] LABS: Appearance Urine UA CLEAR; Bilirubin Urine UA NEGATIVE (NEGATIVE); Color Urine UA YELLOW; Glucose Urine UA NEGATIVE (Negative); Ketones Urine UA NEGATIVE (NEGATIVE); Leukocyte Esterase Urine UA NEGATIVE (NEGATIVE); Nitrite Urine UA NEGATIVE (Negative); Occult Blood Urine UA NEGATIVE (Negative); Protein Urine UA NEGATIVE (Negative); Specific Gravity Urine UA 1.015 (1.000-1.035); Urobilinogen Urine UA 0.2 E.U./dL (0.2)
[2020-02-19 14:39] LABS: pH Urine UA 7.5 (4.5-8.0)
[2020-02-19 14:44] LABS: Culture Indicated Urine Specimen Cultured; Urine Comments Microscopic Normal
== END ==
PROVIDERS: PCP Family Medicine; Referring Provider Obstetrics & Gynecology; Visit Provider Obstetrics & Gynecology
DX: R32 Unspecified urinary incontinence (principal); Z87.440 Personal history of urinary (tract) infections
CPT/HCPCS: 81001; 87086

== ENCOUNTER → 2020-03-02 10:35 | Outpatient (CLI) | payer MEDICARE, OTHER, SELFPAY ==
--- NOTE | 2020-03-02 12:20 | DIET.PN ---
Diabetes: Healthy Eating 1 Intervention: ? Discussed pathophysiology of diabetes and impact of nutrition/diet on blood sugar control.? Discussed fed versus non-fed state.?? ? Reviewed importance of Balance, Variety, and Moderation. ? Discussed the effect of carbohydrates/protein/fat on blood sugar control.? ? Stressed importance of consistent carbohydrate intake at each meal and provided instructions for recommended servings/portions of carbohydrates/protein per meal. Provided educational material. ? Reviewed carbohydrate counting and measuring carbohydrate content via serving sizes and reading nutrition labels.? Provided handouts.?? ? Discussed the difference between simple versus complex carbohydrates and the effect of fiber on blood sugar control.? Discussed various methods to increase fiber content in diet. ? Discussed the plate method for creating more carbohydrate conscious balanced meals. ? Stressed importance of meal timing and not going >4-5 hours between meals. Encouraged adding protein to evening snack to support glucose control overnight. ? Discussed importance of making dietary habits part of lifestyle change.
== END ==
PROVIDERS: Referring Provider Student in an Organized Health Care Education/Training Program; Visit Provider Student in an Organized Health Care Education/Training Program
DX: E11.9 Type 2 diabetes mellitus without complications (principal); Z71.3 Dietary counseling and surveillance
CPT/HCPCS: G0109

== ENCOUNTER → 2020-03-15 14:47 | Outpatient (CLI) | payer MEDICARE, OTHER, SELFPAY ==
--- NOTE | 2020-03-15 14:50 | DI.RAD.S_ITS ---
PROCEDURE: XR KUB INDICATIONS: kidney stones TECHNIQUE: One view of the abdomen acquired. COMPARISON: [facility], CT, CT ABDOMEN PELVIS WO/W CON, 08/06/2019, 15:12. [facility], CR, XR KUB, 12/08/2019, 10:09. [facility], CR, XR KUB, 10/27/2019, 9:52. FINDINGS: Surgical changes and devices: None. Bowel: Bowel gas pattern is normal. Soft tissues: No suspicious abdominal calcifications. Visualized solid organ contours appear normal in size. Bones: No suspicious bony lesions. Note is made of moderate scoliosis along the thoracolumbar junction and upper lumbosacral spine. Degenerative disc disease and facet osteoarthritis is moderately severe the through these areas, as was previously the case on comparison similar plain film evaluation 12/08/19. Small scattered pelvic phleboliths bilaterally, left greater than right, are seen over the pelvis. Renal region urinary tract stones are not identified. IMPRESSION: Pelvic phleboliths, prominent scoliosis and degenerative changes along the low thoracic and lumbosacral spine. No definite urinary tract stone is seen. Dictated by: Clark Chambers M.D. on 03/15/2020 at 16:55 Approved by: Clark Chambers M.D. on 03/15/2020 at 16:58
[2020-03-15 16:30] LABS: Bilirubin Urine UA NEGATIVE (NEGATIVE); Color Urine UA YELLOW; Glucose Urine UA NEGATIVE (Negative); Ketones Urine UA NEGATIVE (NEGATIVE); Leukocyte Esterase Urine UA 2+ (NEGATIVE); Nitrite Urine UA NEGATIVE (Negative); Occult Blood Urine UA 3+ (Negative); Protein Urine UA 2+ (Negative); Urobilinogen Urine UA 0.2 E.U./dL (0.2)
[2020-03-15 16:58] LABS: Appearance Urine UA Slightly Cloudy
[2020-03-15 17:02] LABS: Amorphous Sediment Urine 1+; Bacteria Urine Moderate (10-30); Culture Indicated Urine Specimen Cultured; RBC Urine 5-10/HPF (0-5/HPF); Renal Epithelial Cells Urine 1-5/HPF (0-1/HPF); Squamous Epithelial Cell Urine 5-10 /HPF (0-5/HPF); WBC Urine 30-100/HPF (0-5/HPF)
== END ==
PROVIDERS: PCP Family Medicine; Referring Provider Specialist; Visit Provider Specialist
DX: N20.0 Calculus of kidney (principal); N39.0 Urinary tract infection, site not specified
CPT/HCPCS: 74018; 81003; 81015; 87077; 87086; 87147

== ENCOUNTER → 2020-03-25 10:23 | Outpatient (CLI) | payer MEDICARE, OTHER, SELFPAY ==
--- NOTE | 2020-03-25 12:53 | DIET.PN ---
Diabetes: Healthy Eating 2 Assess: Ms Bynum is here for her second healthy eating class. She has an appointment with her urologist next week and is excited to meet her new provider in May. She recently received a glucometer and will begin checking after our video instruction as she did not bring it with her today. Intervention: Fats effects on glucose, weight, heart disease, cholesterol Sat Vs Unsat Protein- animal and plant based options Low, med, high fat meats Sugar substitutes Sodium Health claims Grocery shopping guidelines Eating away from home Alcohol Sick day guidelines Ketone Testing
== END ==
PROVIDERS: Referring Provider Student in an Organized Health Care Education/Training Program; Visit Provider Student in an Organized Health Care Education/Training Program
DX: E11.29 Type 2 diabetes mellitus with other diabetic kidney complication (principal); Z71.3 Dietary counseling and surveillance
CPT/HCPCS: G0109

== ENCOUNTER → 2020-03-31 10:38 | Outpatient (CLI) | payer MEDICARE, OTHER, SELFPAY ==
[2020-03-31 11:05] LABS: Appearance Urine UA CLEAR; Bilirubin Urine UA NEGATIVE (NEGATIVE); Color Urine UA YELLOW; Glucose Urine UA TRACE g/dL (Negative); Ketones Urine UA NEGATIVE (NEGATIVE); Leukocyte Esterase Urine UA 3+ (NEGATIVE); Nitrite Urine UA POSITIVE (Negative); Occult Blood Urine UA 3+ (Negative); Protein Urine UA 2+ (Negative); Urobilinogen Urine UA 0.2 E.U./dL (0.2)
[2020-03-31 11:07] LABS: pH Urine UA 8.5 (4.5-8.0)
[2020-03-31 11:09] LABS: RBC Urine 5-10/HPF (0-5/HPF); WBC Urine 10-30/HPF (0-5/HPF)
[2020-03-31 11:10] LABS: Amorphous Sediment Urine 3+; Bacteria Urine Many (>30); Culture Indicated Urine Cult Not Indicated; Squamous Epithelial Cell Urine 5-10 /HPF (0-5/HPF)
== END ==
PROVIDERS: Visit Provider Specialist
DX: N39.0 Urinary tract infection, site not specified (principal); R31.9 Hematuria, unspecified; N32.81 Overactive bladder; R32 Unspecified urinary incontinence; N95.2 Postmenopausal atrophic vaginitis; Z87.440 Personal history of urinary (tract) infections
CPT/HCPCS: 81002; 81003; 81015; 87086; 99214

== ENCOUNTER → 2020-04-07 09:53 | Outpatient (CLI) | payer MEDICARE, OTHER, SELFPAY ==
[2020-04-07 12:21] LABS: COVID19 -Nasal RAPID Negative (Negative)
== END ==
PROVIDERS: Visit Provider Specialist
DX: Z20.822 Contact with and (suspected) exposure to COVID-19 (principal)
CPT/HCPCS: 87635; C9803

== ENCOUNTER 2020-04-09 07:27 | Day surgery (SDC) | payer MEDICARE, OTHER, SELFPAY ==
[2020-04-09] VITALS (7 sets, daily range): BP systolic 114–145; BP diastolic 48–75; PULSE 58–64; RESP 12–95; TEMP 35.7–36.6; O2SAT 16–99; BMI 43.0
[2020-04-09] MEDS: LACTATED RINGERS 1,000 ML 42 ML IV (07:53)
[2020-04-09] MEDS: VANCOMYCIN 1,000 MG/200 ML PIGGYBACK 200 MG IV (08:23)
--- NOTE | 2020-04-09 09:00 | PM.PREOP ---
Pre-operative Note Interval Note History & Physical reviewed/Exam performed by Physician: Yes Changes to H&P: No
[2020-04-09] MEDS: GENTAMICIN 160 MG in SODIUM CHLORIDE 0.9% 100 ML 104 ML IV (09:20)
[2020-04-09] MEDS: ONABOTULINUMTOXINA 100 UNIT VIAL 200 UNIT INJ (09:44)
--- NOTE | 2020-04-09 09:56 | SUR.OPER ---
Lithotomy on padded OR bed, head on pillow, arms secured on padded arm boards at <90 degrees abduction. Legs secured in padded yellow fins stirrups.
--- NOTE | 2020-04-09 10:15 | P.OP_ITS ---
Operative Date/Time/Diagnoses Date of procedure: 04/09/20 Time of procedure: 10:15 Pre-op diagnosis: Urinary incontinence Post-op diagnosis: same Procedure & Clinicians Procedure: Cystoscopy and injection of Botox Same procedure as scheduled: Yes Indications: 1. Urinary incontinence 2. Small capacity, hyperreflexic bladder. Surgeon: Leopoldo Cho Click Yes if Unassisted: Yes Anesthesia Type: General Operative Notes Findings: Urethral caliber and position were normal. There was an associated moderate caruncle. Bladder showed generalized trabeculation. Normal ureteral orifices bilaterally. Closure Type: not applicable Specimen(s): none sent Estimated Blood Loss (mL): 0 Blood products transfused: none Tourniquet time (min): 0 Procedure in detail: Patient was positioned in supine and was administered general anesthesia. She was then repositioned semi-lithotomy and the lower abdomen, groin, and perineum were prepped and draped in sterile fashion. A 22 [place] panendoscope was then passed lower urinary tract with the findings as described above. 1 cc aliquots of a diluted Botox solution (200 units/30 cc) were then injected in a fairly equal distribution throughout the base of the bladder and the lower aspects of the posterior and bilateral lateral hobson. The bladder was then drained completely in the panendoscope was removed. The patient was then repositioned supine, was awakened, and was transferred [place] for transport to PACU. Complications: none Post-operative Condition: stable Disposition: PACU Plan for aftercare: Discharge home
== END 2020-04-09 13:00 | disposition home or self-care (01) ==
PROVIDERS: Referring Provider Specialist; Visit Provider Specialist
PROC: (CPT 52287; principal; 2020-04-09 09:15)
DX: N39.46 Mixed incontinence (principal); G47.33 Obstructive sleep apnea (adult) (pediatric); E66.9 Obesity, unspecified; Z87.440 Personal history of urinary (tract) infections
CPT/HCPCS: 52287; J0585; J1100; J2405; J2704; J3010

== ENCOUNTER → 2020-04-14 13:31 | Outpatient (CLI) | payer MEDICARE, OTHER, SELFPAY ==
[2020-04-14 13:57] LABS: Appearance Urine UA CLEAR; Bilirubin Urine UA NEGATIVE (NEGATIVE); Color Urine UA YELLOW; Ketones Urine UA NEGATIVE (NEGATIVE); Leukocyte Esterase Urine UA 1+ (NEGATIVE); Nitrite Urine UA NEGATIVE (Negative); Protein Urine UA NEGATIVE (Negative); Urobilinogen Urine UA 0.2 E.U./dL (0.2)
[2020-04-14 14:05] LABS: Culture Indicated Urine Specimen Cultured; Squamous Epithelial Cell Urine 0-1 /HPF (0-5/HPF)
[2020-04-14 14:16] LABS: Hemoglobin A1C% w Est Avg Glu 6.5 % (4.0-6.0)
[2020-04-15 08:14] LABS: pH Urine UA 5.5 (4.5-8.0)
[2020-04-15 08:15] LABS: Glucose Urine UA TRACE g/dL (Negative); Occult Blood Urine UA 3+ (Negative)
[2020-04-15 08:16] LABS: RBC Urine 30-100/HPF (0-5/HPF); WBC Urine 10-30/HPF (0-5/HPF)
[2020-04-15 08:17] LABS: Bacteria Urine Few (2-10)
== END ==
PROVIDERS: PCP Student in an Organized Health Care Education/Training Program; Referring Provider Student in an Organized Health Care Education/Training Program; Visit Provider Specialist
DX: E11.69 Type 2 diabetes mellitus with other specified complication (principal); N39.0 Urinary tract infection, site not specified
CPT/HCPCS: 36415; 81003; 81015; 83036; 87077; 87086; 87186

== ENCOUNTER → 2020-04-29 09:57 | Outpatient (CLI) | payer MEDICARE, OTHER, SELFPAY ==
--- NOTE | 2020-04-29 10:59 | DIET.PN ---
DIABETES Nutrition Initial Assessment:? ASSESS:?? Ms. Bynum is a 84 yo??referred for type 2 diabetes seen as part of DSME program. She just received all of her glucometer supplies this week. She reports improved eating habits and reduced stress since her son has moved and his being cared for by her other son. She has been able to meet with urology to begin receiving treatments for better bladder control. She has been adding protein to each meal as discussed in previous appointments. Recent labs show great improvement. ??? LABS: Per pt report:? A1c: 6.5 (from 7.6) ? MEDS:?? metformin ? DIET: Per 24-hour recall:? B: egg, sausage, fruit, diet fruit juice, ? slice [employer] bread L: soup or ? sandwich, veg dish with quinoa, ? apple D: scallops, rice, brussels Sn: grapes, nuts Eating Out: na Changes in Appetite: na Nutrition Supplements: ? Weight: 208lb Height: 58in BMI: ? 43 ? Exercise:? has stationary bike NUTRITION DX 1. Altered Nutrition related labs related to impaired glucose metabolism, lack of previous exposure to accurate nutrition information as evidenced by pt report, dx of diabetes, previous diet high in refined carbohydrates.? INTERVENTION(s): 1. Reviewed pathophysiology of diabetes and impact of nutrition/diet on blood sugar control.? Discussed fed versus non-fed state.?? 2. Discussed the effect of carbohydrates/protein/fat on blood sugar control.? Stressed importance of consistent carbohydrate intake at each meal and provided instructions for recommended servings/portions of carbohydrates/protein per meal. Provided pt with educational material. 3. Stressed importance of meal timing and not going >4-5 hours between meals. Encouraged adding protein to evening snack to support glucose control overnight. Patient agreeable. 4. Discussed healthy weight loss goals of 1-2lbs per week through diet and exercise.? Pt agreeable to riding her bike at least 30 minutes daily. 5. Recommend monitoring fasting and alternating 2 hr PP mealtime glucose. 15 min spent with glucometer instruction, control testing, and disposal. MONITOR/EVALUATE: Anticipate good compliance.? Nutrition follow-up scheduled for 2 month.
== END ==
PROVIDERS: PCP Student in an Organized Health Care Education/Training Program; Referring Provider Student in an Organized Health Care Education/Training Program; Visit Provider Student in an Organized Health Care Education/Training Program
DX: E11.9 Type 2 diabetes mellitus without complications (principal); E66.9 Obesity, unspecified; Z79.84 Long term (current) use of oral hypoglycemic drugs; Z68.41 Body mass index [BMI] 40.0-44.9, adult; Z71.3 Dietary counseling and surveillance
CPT/HCPCS: G0109

== ENCOUNTER → 2020-04-29 15:19 | Outpatient (CLI) | payer MEDICARE, OTHER, SELFPAY | PROVIDERS: PCP Student in an Organized Health Care Education/Training Program; Visit Provider Specialist | DX: N39.0 Urinary tract infection, site not specified (principal); R31.9 Hematuria, unspecified; R32 Unspecified urinary incontinence; N95.2 Postmenopausal atrophic vaginitis; Z87.440 Personal history of urinary (tract) infections | CPT/HCPCS: 87077; 87086; 87186; 99214 ==

== ENCOUNTER → 2020-05-07 09:23 | Outpatient (CLI) | payer MEDICARE, OTHER, SELFPAY ==
[2020-05-07 09:54] LABS: COVID19 -Nasal RAPID Negative (Negative)
== END ==
PROVIDERS: PCP Student in an Organized Health Care Education/Training Program; Visit Provider Specialist
DX: Z20.822 Contact with and (suspected) exposure to COVID-19 (principal)
CPT/HCPCS: 87635; C9803

== ENCOUNTER 2020-05-10 09:50 | Day surgery (SDC) | payer MEDICARE, OTHER, SELFPAY ==
[2020-05-10] VITALS (9 sets, daily range): BP systolic 91–128; BP diastolic 42–70; PULSE 58–67; RESP 12–18; TEMP 36–36.7; O2SAT 94–99; BMI 43.4
[2020-05-10] MEDS: LACTATED RINGERS 1,000 ML 42 ML IV (10:31)
--- NOTE | 2020-05-10 11:33 | PM.PREOP ---
Pre-operative Note Interval Note History & Physical reviewed/Exam performed by Physician: Yes Changes to H&P: No
[2020-05-10] MEDS: CEFAZOLIN 2 GM/100 ML FROZ.PIGGY IV (12:04)
--- NOTE | 2020-05-10 12:26 | SUR.OPER ---
Lithotomy on padded OR bed, head on pillow, arms secured on padded arm boards at <90 degrees abduction. Legs secured in padded yellow fins stirrups.
[2020-05-10] MEDS: ONABOTULINUMTOXINA 100 UNIT VIAL 200 UNIT INJ (12:44)
--- NOTE | 2020-05-10 12:49 | P.OP_ITS ---
Operative Date/Time/Diagnoses Date of procedure: 05/10/20 Time of procedure: 12:49 Pre-op diagnosis: Urinary incontinence Post-op diagnosis: same Procedure & Clinicians Procedure: 1. Cystoscopy and injection of Botox ( 200 units per 30 cc). Same procedure as scheduled: Yes Indications: 1. Urinary incontinence Click Yes if Unassisted: Yes Anesthesia Type: General Operative Notes Findings: The bladder urothelium was overall hypervascular with areas of previously biopsied chronic inflammation. Ureteral orifice on the right is normal and the 1 on the left is gaping. Closure Type: not applicable Specimen(s): none sent Estimated Blood Loss (mL): 2 Blood products transfused: none Procedure in detail: The patient was positioned in supine and was administered general anesthesia she was then repositioned in semi lithotomy and the lower abdomen, groin, and perineum were prepped and draped in sterile fashion. The continuous-flow cystoscope was then inserted lower urinary tract with findings as described above. Next 1 cc aliquots were injected in a spaced and somewhat random manner in the region of the bladder base and trigone. A total of 30 individual 1 cc aliquots were injected. The bladder was then drained completely and all instrumentation was removed. The patient was then repositioned supine, awakened, and transferred to [facility] for transport to recovery. Complications: none Post-operative Condition: stable Disposition: PACU Plan for aftercare: Discharge home.
== END 2020-05-10 13:58 | disposition home or self-care (01) ==
PROVIDERS: PCP Family Medicine; Referring Provider Specialist; Visit Provider Specialist
PROC: (CPT 52287; principal; 2020-05-10 10:45)
DX: N39.46 Mixed incontinence (principal); E11.9 Type 2 diabetes mellitus without complications; Z79.84 Long term (current) use of oral hypoglycemic drugs; G47.33 Obstructive sleep apnea (adult) (pediatric)
CPT/HCPCS: 52287; J0585; J0690; J1100; J2405; J2704; J3010

== ENCOUNTER → 2020-05-31 14:35 | Outpatient (CLI) | payer MEDICARE, OTHER, SELFPAY ==
[2020-05-31 14:52] LABS: Appearance Urine UA CLEAR; Bilirubin Urine UA NEGATIVE (NEGATIVE); Color Urine UA YELLOW; Glucose Urine UA NEGATIVE (Negative); Ketones Urine UA NEGATIVE (NEGATIVE); Leukocyte Esterase Urine UA 1+ (NEGATIVE); Nitrite Urine UA NEGATIVE (Negative); Occult Blood Urine UA 3+ (Negative); Protein Urine UA 1+ (Negative); Urobilinogen Urine UA 0.2 E.U./dL (0.2)
[2020-05-31 14:54] LABS: pH Urine UA 6.5 (4.5-8.0)
[2020-05-31 14:56] LABS: Bacteria Urine Few (2-10); RBC Urine 10-30/HPF (0-5/HPF); Squamous Epithelial Cell Urine 1-5 /HPF (0-5/HPF); WBC Urine 1-5/HPF (0-5/HPF)
[2020-05-31 14:57] LABS: Culture Indicated Urine Specimen Cultured
== END ==
PROVIDERS: PCP Family Medicine; Referring Provider Specialist; Visit Provider Specialist
DX: N39.0 Urinary tract infection, site not specified (principal)
CPT/HCPCS: 81003; 81015; 87086

== ENCOUNTER → 2020-06-17 09:49 | Outpatient (CLI) | payer MEDICARE, OTHER, SELFPAY ==
--- NOTE | 2020-06-17 11:16 | DIET.PN ---
Diabetes Follow Up Assess: Ms. Bynum is a 84 yof here to review her follow up labs. She reports glucose values have been WNL. She recently discontinued her metformin as she was having severe chronic GI complications and other adverse side effects. She has a follow up with Dr. Joshi next week at which she plans to discuss alternative medications. She continues to have poor bladder control and was recently told she was borderline anemic. She has been instructed to consume more protein and fat with reduced carbohydrate intake per Urology. Labs: A1c: 6.5 Meds: d/c metf at this time Dietary changes: increased protein fat intake Ht: 58in Wt: 207lb BMI: 43.7 Nutrition DX: Altered nutrition related laboratory values related to impaired glucose metabolism, lack of previous exposure to nutrition information as evidenced by pt report, diagnosis of diabetes, previous diet high in refined carbohydrates. Intervention: 1. Completed follow up assessment. Reviewed barriers to care. 2. Reviewed new labs and importance of continued BG monitoring. 3. Reviewed SMART goals and made modifications where appropriate including wt management, activity, and A1c goals. 4. Discussed plan for ongoing support. Provided information for continued support and success. SMART goals: 1. Pt continued goal of 20 lb (10% wt) in the next 3 mo through better dietary habits including portion control, carb consistency, and label reading. Monitor/Evaluate: Pt will follow up in 3 mo to discuss new labs and barriers to care.
== END ==
PROVIDERS: PCP Family Medicine; Referring Provider Student in an Organized Health Care Education/Training Program; Visit Provider Student in an Organized Health Care Education/Training Program
DX: E11.9 Type 2 diabetes mellitus without complications (principal); E66.9 Obesity, unspecified; Z68.41 Body mass index [BMI] 40.0-44.9, adult; Z71.3 Dietary counseling and surveillance
CPT/HCPCS: G0109

== ENCOUNTER 2020-06-28 22:36 | Inpatient (IN) | payer MEDICARE, OTHER, SELFPAY ==
--- NOTE | 2020-06-28 22:38 | DI.RAD.S_ITS ---
PROCEDURE: XR CHEST 1V INDICATIONS: hemoptysis TECHNIQUE: One view of the chest was acquired. COMPARISON: [facility], CHEST 1 VIEW, 05/19/2015, 8:48. [facility], CHEST 1 VIEW, 03/11/2014, 9:09. FINDINGS: Surgical changes and devices: Left thyroid region surgical clips. The tracheal airway is no longer deviated rightward.. Lungs and pleura: Lungs are mildly abnormal, with reduced inspiratory volume and interstitial prominence. Quality of visualization is quite limited by these factors and large body habitus. Also, mild motion during image acquisition.. No pleural effusions or pneumothorax. Mediastinum: Mediastinal contours appear normal. Heart size is normal. Bones and chest wall: No suspicious bony lesions. Overlying soft tissues appear unremarkable. What appears to be moderately severe to severe degenerative changes at the right glenohumeral joint are noted. IMPRESSION: Limited study as discussed, a definite source of hemoptysis is not seen. Left-sided thyroid region surgical clips with resolution of a previously present rightward shift of the tracheal airway. Follow-up PA and lateral chest plain films in the radiology department may be warranted depending on the clinical status for more accurate assessment. Note: The initial interpretation raised concern for possible right inferior hilar airspace disease or mass. On current review the appearance of the lower right hilum is as expected with reference to prior studies and reduced inspiratory volume. As is always the case if there is a clinical indication of possible mass a low threshold for obtaining contrast-enhanced CT scanning is recommended Dictated by: Clark Chambers M.D. on 06/29/2020 at 8:16 Approved by: Clark Chambers M.D. on 06/29/2020 at 8:19
[2020-06-28 22:45] VITALS: BP 151/88; PULSE 77; RESP 16; O2SAT 97; BMI 42.8
[2020-06-28 22:47] VITALS: PULSE 75; O2SAT 99
--- NOTE | 2020-06-28 22:54 | ED.EPISTAXIS ---
HPI - Epistaxis General Chief complaint: Nasal Problem Stated complaint: Coughing up blood Time Seen by Provider: 06/28/20 22:40 Source: patient and EMS Mode of arrival: EMS Limitations: no limitations History of Present Illness HPI Narrative: 84-year-old female nonsmoker with history of multiple urologic problems but largely quite healthy presents by EMS and a chief complaint of coughing up blood. She had been coughing over the day and producing small clots. She called EMS for transport. During transport she developed a right-sided nose bleed that has gone down the back of her throat. She denies any dizziness, weakness or lightheadedness. She denies any fever or chills. She denies recent travel, history of blood clots or cancer. She denies any recent upper respiratory illness with runny nose, nasal congestion or sore throat. She denies any trauma. She states that currently the blood is largely coming from her right naris and does drip down the back of her throat. She does not take any anticoagulation, only a baby aspirin daily. Additionally she states she's had R flank pain for about a week MD complaint: epistaxis Location: right nostril Onset (ago): hour(s) Duration: constant Context: aspirin use Treatment prior to arrival: nose pinching Related Data Home Medications Medication Instructions Recorded Confirmed aspirin 81 mg PO QDAY #0 01/31/16 05/10/20 citalopram 10 mg PO QDAY #0 01/31/16 05/10/20 gabapentin [Neurontin] 300 mg PO TID #0 01/31/16 05/10/20 levothyroxine 100 mcg PO QAM #0 01/31/16 05/10/20 metoprolol succinate 50 mg PO DAILY 08/04/19 05/10/20 metformin 500 mg tablet 500 mg PO BID 03/31/20 05/10/20 Previous Rx's Medication Instructions Recorded ospemifene 60 mg tablet 60 mg PO DAILY #90 tab 09/11/19 tramadol 50 mg tablet 50 mg PO Q6H #30 tab 09/22/19 oxycodone 5 mg PO Q4H PRN #14 tab 10/17/19 Allergies Allergy/AdvReac Type Severity Reaction Status Date / Time alcohol Allergy Severe Rash, Verified 05/04/20 15:51 facial swelling amphotericin B AdvReac Severe Jittery, Verified 05/10/20 10:35 [AMPHOTERICIN B] tremors Review of Systems Constitutional Constitutional: Denies chills, Denies fatigue, Denies fever(s), Denies frequent falls, Denies lethargy and Denies weakness Eyes Eyes: Denies change in vision, Denies eye discharge, Denies irritation and Denies loss of vision ENT Ears, Nose, Mouth, and Throat: Denies change in voice, Denies dizziness, Reports epistaxis, Denies neck pain, Denies sore throat and Denies throat swelling Cardiovascular Cardiovascular: Denies chest pain, Denies irregular heart rhythm, Denies lightheadedness, Denies palpitations, Denies dyspnea, Denies dyspnea on exertion and Denies orthopnea Respiratory Respiratory: Denies cough, Reports hemoptysis, Denies dyspnea, Denies dyspnea on exertion and Denies wheezing Gastrointestinal Gastrointestinal: Denies abdominal pain, Denies change in bowel habits, Denies diarrhea, Denies nausea and Denies vomiting Musculoskeletal Musculoskeletal: Denies neck pain and Denies numbness Integumentary/Breasts Skin/Breast: Denies pruritus, Denies erythema, Denies rash and Denies wounds Neurologic Neurologic: Denies behavioral changes, Denies confusion, Denies dizziness, Denies frequent falls, Denies loss of vision, Denies numbness and Denies weakness Psychiatric Psychiatric: Denies anxiety, Denies behavioral changes, Denies confusion, Denies depression, Denies homicidal ideation and Denies suicidal ideation Endocrine Endocrine: Denies fatigue, Denies flushing and Denies palpitations Hematologic/Lymphatic Hematologic/Lymphatic: Denies easy bruising Allergic/Immunologic Allergic/Immunologic: Denies urticaria, Denies throat swelling and Denies wheezing Patient History Medical History Anxiety Calculus of kidney Depression GI bleed Gross hematuria History of recurrent UTI (urinary tract infection) HTN (hypertension) Hypothyroid Influenza A (2018) Nephrolithiasis Obstructive uropathy MORGAN on CPAP Peptic ulcer disease Pneumothorax Postmenopausal atrophic vaginitis Ureteral obstruction, left Urinary incontinence in female Urinary incontinence, mixed UTI (urinary tract infection) Surgical History H/O gastric bypass H/O mastectomy History of back surgery History of hip replacement Hx of bilateral cataract extraction (2012) Hx of cystoscopy (08/04/19) Nephrostomy status Social History household members: spouse Smoking Status: Never smoker alcohol intake: never eating out: rarely or never Type(s) of exercise: none Smoking Status: Never smoker Substance Use Type: does not use Exam Narrative Exam Narrative: GENERAL: [84] year old patient appears stated age. Well-nourished, well-developed patient, in mild distress. Pleasant, nose clamp in place, bright red blood on her shirt and chin. HEAD: Atraumatic. Normocephalic. EYES: Pupils equal round and reactive. Extraocular motions intact. No scleral icterus. No injection or drainage. ENT: Active bleeding from right naris, bright red, when patient blows clots there is a source of bleeding apparently in the anterior 3rd of the nose on the right nasal septum that appears potentially pulsatile.. Throat without erythema, tonsillar hypertrophy or exudate. Airway patent. NECK: Trachea midline. Non tender CARDIOVASCULAR: Regular rate and rhythm without murmurs, gallops, or rubs. RESPIRATORY: Clear to auscultation. Breath sounds equal bilaterally. No wheezes, rales, or rhonchi. GASTROINTESTINAL: Abdomen soft, non-tender, nondistended. EXTREMITIES: No edema or joint tenderness. BACK: R flank pain, tender to palpation NEURO: AOx3. SKIN: No rash or erythema of visible areas Initial Vital Signs Initial Vital Signs: Vital Signs Pulse Rate 77 06/28/20 22:45 Respiratory Rate 16 06/28/20 22:45 Blood Pressure 151/88 H 06/28/20 22:45 Pulse Oximetry 97 06/28/20 22:45 Course Course Course Narrative: 2310 -chest x-ray notes infrahilar mass versus consolidation and recommend CT. CT of the chest with IV contrast is ordered prior to labs being resulted, with instruction to wait on labs. Upon receipt it is noted that there has been a rather impressive drop in renal function with creatinine over 2. Given history of stones and concern for possible obstructing uropathy i have changed the order to non contrasted CT Chest/Abd/pelvis. Bleeding still controlled. 2320 - call to hospitalist. No urology coverage until at least Sunday. Also, given hemoptysis with mass on imaging she would not be a good candidate for our facility and he recommends transfer 0031 - CT back and demonstrates NO mass, but a LLL pneumonia instead. Furthermore, no obstructive uropathy is noted. 0140 - Repeat labs demonstrate improvement in K and creatinine. 0200 - call back to hospitalist. Given developments and improvements we can keep patient here. Orders Ordered: ED Orders 06/28/20 22:38 XR chest 1V Stat 06/28/20 22:50 Complete Blood Count AUTO DIFF Stat Comprehensive Metabolic Panel Stat Partial Thromboplastin Time Stat Prothrombin Time INR Stat 06/28/20 23:28 CT chest abd pel wo con Stat 06/29/20 00:02 EKG-12 Lead Stat 06/29/20 00:10 Urinalysis and Microscopic Stat Urine Culture Stat 06/29/20 00:13 COVID19 - ADMIT (BISQUE BRUSHER swab/PCR) Stat 06/29/20 01:38 Basic Metabolic Panel Stat 06/29/20 02:39 Procalcitonin Stat 06/29/20 02:40 COVID19 - ADMIT (BISQUE BRUSHER swab/PCR) Stat 06/29/20 02:42 Blood Culture Stat Levofloxacin (Levaquin) 750 mg in 150 mls @ 100 mls/hr IV NOW ONE Stop: 06/29/20 04:10 Discontinued Medications Acetaminophen (Acetaminophen 325 Mg Tablet) 650 mg PO NOW ONE Stop: 06/29/20 01:56 Last Admin: 06/29/20 01:59 Dose: 650 mg Documented by: EZEQUIEL Sodium Chloride (Normal Saline 0.9%) 1,000 mls @ 1,000 mls/hr IV BOLUS ONE Stop: 06/29/20 00:19 Last Infusion: 06/29/20 01:50 Dose: 0 mls/hr Documented by: Admin: 06/29/20 00:22 Dose: 1,000 mls/hr Documented by: CASSIDY Oxymetazoline HCl (Oxymetazoline Nasal Huffman 15 Ml) 2 sprays NASAL NOW ONE Stop: 06/28/20 22:40 Last Admin: 06/29/20 00:28 Dose: 2 sprays Documented by: CASSIDY Silver Nitrate/Potassium Nitrate (Silver Nitrate Stick) 1 each TOP NOW ONE Stop: 06/28/20 22:58 Tranexamic Acid (Tranexamic Acid 1,000 Mg Vial) 1,000 mg MM NOW ONE Stop: 06/28/20 22:38 Last Admin: 06/29/20 00:28 Dose: 1,000 mg Documented by: CASSIDY Vital Signs Vital signs: Vital Signs - 8 hr 06/28/20 22:45 06/28/20 22:47 06/28/20 23:00 Pulse Rate 77 75 71 Respiratory Rate 16 Blood Pressure 151/88 H Pulse Oximetry 97 99 100 06/29/20 00:26 06/29/20 00:27 06/29/20 00:30 Pulse Rate 74 74 72 Respiratory Rate Blood Pressure 159/77 H 172/78 H Pulse Oximetry 92 96 99 MDM - Epistaxis Lab Data Result diagrams: 06/28/20 22:50 06/29/20 01:38 Labs: Lab Results 06/28/20 06/28/20 06/28/20 Range/Units 22:50 22:50 22:50 WBC 9.7 (4.5-11.0) X10^3/uL RBC 3.96 L (4.0-5.2) X10^6/uL Hgb 11.8 L (12.0-16.0) g/dL Hct 36.1 (36-46) % MCV 91.2 (80-100) fL MCH 29.8 (26-34) PG MCHC 32.7 (30-36) % RDW 14.0 (11.6-14.8) % Plt Count 203 (150-400) X10^3/uL Neut % (Auto) 74.5 (50-75) % Lymph % (Auto) 13.6 L (25-40) % Bollinger % (Auto) 8.5 (3-14) % Eos % (Auto) 2.5 (2-4) % Baso % (Auto) 0.9 (0-2) % Neut # (Auto) 7200 H (4237-9841) /uL Lymph # (Auto) 1300 (4710-2828) /uL Bollinger # (Auto) 800 (0-900) /uL Eos # (Auto) 200 (0-450) /uL Baso # (Auto) 100 (0-100) /uL PT 11.8 (10.1-12.7) SECONDS INR 1.0 (0.9-1.3) APTT 36 (26.4-36.2) SECONDS Sodium 139 (137-145) mmol/L Potassium 5.2 H (3.4-5.1) mmol/L Chloride 108 H (98-107) mmol/L Carbon Dioxide 22 (22-32) mmol/L BUN 40 H (7-17) mg/dL Creatinine 2.01 H (0.52-1.04) mg/dL Estimated GFR 23.6 L (>60) mL/min BUN/Creatinine Ratio 19.9 (6-22) Glucose 106 (80-110) mg/dL Calcium 9.4 (8.4-10.2) mg/dL Total Bilirubin 0.3 (0.2-1.3) mg/dL AST 31 (14-36) IU/L ALT 18 (<35) IU/L Alkaline Phosphatase 115 (38-126) U/L Total Protein 7.5 (6.3-8.2) g/dL Albumin 4.2 (3.5-5.0) g/dL Globulin 3.3 (1.7-4.1) g/dL Albumin/Globulin Ratio 1.3 (1.0-2.8) Urine Color Urine Appearance Urine pH (4.5-8.0) Ur Specific Libby (1.000-1.035) Urine Protein (Negative) Urine Glucose (UA) (Negative) g/dL Urine Ketones (NEGATIVE) Urine Occult Blood (Negative) Urine Nitrate (Negative) Urine Bilirubin (NEGATIVE) Urine Urobilinogen (0.2) E.U./dL Ur Leukocyte Esterase (NEGATIVE) Urine RBC (0-5/HPF) Urine WBC (0-5/HPF) Ur Squamous Epith Cells (0-5/HPF) Urine Bacteria (None) Ur Culture Indicated? SARS-CoV-2 (PCR) (Negative) 06/29/20 06/29/20 06/29/20 Range/Units 00:10 00:13 01:38 WBC (4.5-11.0) X10^3/uL RBC (4.0-5.2) X10^6/uL Hgb (12.0-16.0) g/dL Hct (36-46) % MCV (80-100) fL MCH (26-34) PG MCHC (30-36) % RDW (11.6-14.8) % Plt Count (150-400) X10^3/uL Neut % (Auto) (50-75) % Lymph % (Auto) (25-40) % Bollinger % (Auto) (3-14) % Eos % (Auto) (2-4) % Baso % (Auto) (0-2) % Neut # (Auto) (7162-7228) /uL Lymph # (Auto) (9829-5897) /uL Bollinger # (Auto) (0-900) /uL Eos # (Auto) (0-450) /uL Baso # (Auto) (0-100) /uL PT (10.1-12.7) SECONDS INR (0.9-1.3) APTT (26.4-36.2) SECONDS Sodium 140 (137-145) mmol/L Potassium 4.9 (3.4-5.1) mmol/L Chloride 109 H (98-107) mmol/L Carbon Dioxide 24 (22-32) mmol/L BUN 40 H (7-17) mg/dL Creatinine 1.91 H (0.52-1.04) mg/dL Estimated GFR 25.0 L (>60) mL/min BUN/Creatinine Ratio 20.9 (6-22) Glucose 104 (80-110) mg/dL Calcium 8.9 (8.4-10.2) mg/dL Total Bilirubin (0.2-1.3) mg/dL AST (14-36) IU/L ALT (<35) IU/L Alkaline Phosphatase (38-126) U/L Total Protein (6.3-8.2) g/dL Albumin (3.5-5.0) g/dL Globulin (1.7-4.1) g/dL Albumin/Globulin Ratio (1.0-2.8) Urine Color Yellow Urine Appearance Clear Urine pH 6.0 (4.5-8.0) Ur Specific Libby 1.015 (1.000-1.035) Urine Protein Negative (Negative) Urine Glucose (UA) Negative (Negative) g/dL Urine Ketones Negative (NEGATIVE) Urine Occult Blood 3+ H (Negative) Urine Nitrate Negative (Negative) Urine Bilirubin Negative (NEGATIVE) Urine Urobilinogen 0.2 (0.2) E.U./dL Ur Leukocyte Esterase 1+ H (NEGATIVE) Urine RBC 5-10/hpf H (0-5/HPF) Urine WBC 1-5/hpf (0-5/HPF) Ur Squamous Epith Cells 1-5 /hpf (0-5/HPF) Urine Bacteria None seen (None) Ur Culture Indicated? Specimen cultured SARS-CoV-2 (PCR) Negative (Negative) Imaging Data Chest x-ray: Radiologist's Impression: Right infrahilar rounded opacity secondary to mass versus consolidation. Suggest follow-up CT chest, cardiomegaly, hypoventilation CT scan - chest: Radiologist's Impression: Left lower lobe consolidated, bilateral asymmetric change in severe hydroureteronephrosis. Perhaps compromise of bilateral ureteral vesicular junction is related to inflammatory changes in cystitis. No definite obstructing calculus ECG Data Attestation: I personally reviewed and interpreted this ECG as follows: Interpretation: EKG is normal sinus rhythm rate [68 ] and free of any signs of ischemia or ectopy. No ST segmental elevation or depression. No T wave inversions. IN interval 210. No hyperacute T-waves Discharge Plan Departure Patient Disposition: Admitted As Inpatient Clinical Impression: Acute anterior epistaxis, Cough with hemoptysis, Acute kidney injury Left lower lobe pneumonia Qualifiers: Pneumonia type: due to unspecified organism Qualified Code(s): J18.9 - Pneumonia, unspecified organism
[2020-06-28 23:00] VITALS: PULSE 71; O2SAT 100
[2020-06-28 23:10] LABS: Add Manual Diff / Slide Review NO; Basophils Absolute Auto 100 /uL (0-100); Basophils Percent Auto 0.9 % (0-2); Eosinophils Absolute Auto 200 /uL (0-450); Eosinophils Percent Auto 2.5 % (2-4); Hematocrit 36.1 % (36-46); Hemoglobin 11.8 g/dL (12.0-16.0); Lymphocytes Absolute Auto 1300 /uL (1100-4500); Lymphocytes Percent Auto 13.6 % (25-40); Mean Corpuscular HGB Conc 32.7 % (30-36); Mean Corpuscular Hemoglobin 29.8 PG (26-34); Mean Corpuscular Volume 91.2 fL (80-100); Monocytes Absolute Auto 800 /uL (0-900); Monocytes Percent Auto 8.5 % (3-14); Neutrophils Absolute Auto 7200 /uL (1500-7000); Neutrophils Percent Auto 74.5 % (50-75); Platelet Count 203 X10^3/uL (150-400); Prothrombin Time 11.8 SECONDS (10.1-12.7); Red Blood Cell Count 3.96 X10^6/uL (4.0-5.2); White Blood Cell Count 9.7 X10^3/uL (4.5-11.0)
[2020-06-28 23:15] LABS: Alanine Aminotransferase 18 IU/L (<35); Albumin 4.2 g/dL (3.5-5.0); Albumin Globulin Ratio 1.3 (1.0-2.8); Alkaline Phosphatase 115 U/L (38-126); Aspartate Aminotransferase 31 IU/L (14-36); BUN Creatinine Ratio 19.9 (6-22); Bilirubin Total 0.3 mg/dL (0.2-1.3); Blood Urea Nitrogen 40 mg/dL (7-17); Calcium 9.4 mg/dL (8.4-10.2); Carbon Dioxide 22 mmol/L (22-32); Chloride 108 mmol/L (98-107); Estimated Glomerular Filt Rate 23.6 mL/min (>60); Globulin 3.3 g/dL (1.7-4.1); Glucose 106 mg/dL (80-110); HEMOLYSIS 17 (0-50); Sodium 139 mmol/L (137-145); Total Protein 7.5 g/dL (6.3-8.2)
[2020-06-28 23:16] LABS: Potassium 5.2 mmol/L (3.4-5.1)
[2020-06-28 23:22] LABS: PTT Partial Thromboplastin Tim 36 SECONDS (26.4-36.2)
--- NOTE | 2020-06-28 23:28 | DI.CT.S_ITS ---
PROCEDURE: CT CHEST ABD PEL WO CON INDICATIONS: hemoptysis, severe flank pain, history of stones, uropathy? TECHNIQUE: After the administration of oral contrast, 5 mm thick sections acquired from the lung apices to the symphysis pubis. 5 mm thick coronal and sagittal reformats acquired, with additional 7 mm coronal MIP reformats through the lungs. For radiation dose reduction, the following was used: automated exposure control, adjustment of mA and/or kV according to patient size. COMPARISON: [facility], CT, CT ABDOMEN PELVIS WO/W CON, 08/06/2019, 15:12. [facility], XA, SI URETERAL STENT CHANGE, 10/02/2019, 9:44. FINDINGS: Image quality: Reduced by absence of both oral and intravenous contrast. Mild patient motion also.. CHEST: Lungs and pleura: No acute pulmonary opacities on the right. There is mild focal alveolar infiltration at the left lung base just above the dome of the diaphragm, and this is in the setting of convex rightward scoliosis with reduced volume within the left hemithorax. Therefore both pneumonia and atelectasis should be considered as the potential underlying cause. No pleural effusions or pneumothorax. Central and peripheral airways are patent are normal in caliber. Mediastinum: Heart size is normal. No pericardial effusion. No mediastinal adenopathy by CT size criteria. Thoracic aorta and central pulmonary arteries are normal in size. Esophagus is normal in caliber. No hiatal hernia. Chest wall: No axillary or supraclavicular adenopathy by size criteria. Thyroid gland is not well seen . ABDOMEN: Solid organs: Liver is normal in size. Gallbladder is partially contracted . Pancreas is normal in contours. Spleen is normal in size. No adrenal nodules. The kidneys are asymmetric in size, smaller on the left than the right, and demonstrate prominent hydronephrosis and hydroureter extending inferiorly to the bladder level. No renal collecting system or ureteral stones are found. There are several scattered pelvic phleboliths. Quality of visualization of the lower 3rd of the pelvis is limited by metal artifact from a left-sided total hip arthroplasty. Peritoneum and bowel: Small and large bowel loops are normal in caliber and wall thickness. No free fluid or air. Nodes and vessels: No retroperitoneal or mesenteric adenopathy by size criteria. Aorta and inferior vena cava are normal in size. Miscellaneous: No ventral hernias. PELVIS: Genitourinary: Bladder wall thickness is normal. Miscellaneous: No inguinal hernias or adenopathy. At the bladder there is relatively poor visualization due to absence of intravenous contrast and also metal artifact from the left total hip arthroplasty. Note is made of irregular areas of bladder wall thickening, including adjacent to and at the point of insertion of the distal ureters. A bladder calculus is not seen. No adenopathy is found. Bones: No suspicious bony lesions. No vertebral body compression fractures. IMPRESSION: 1. Left lower lobe focal pneumonia or atelectasis just above the dome of the left hemidiaphragm. This is in the setting of convex rightward scoliosis centered at the midthoracic spine and this results in reduced volume within the left hemithorax. This increases the likelihood of atelectasis as the underlying cause. 2. Prominent hydronephrosis and hydroureter bilaterally, which has worsened from prior CT scanning 08/06/19. No urinary tract stone is seen. The etiology may be located at the distal ureters or bladder wall level where irregular bladder wall thickening can be seen. As discussed above the metal artifact from the left hip arthroplasty reduces quality of visualization exactly in this area dedicated bladder ultrasound may be warranted for more accurate assessment. Also, urology consultation is anticipated. This patient has undergone prior ureteral stent placement. Dictated by: Clark Chambers M.D. on 06/29/2020 at 9:05 Approved by: Clark Chambers M.D. on 06/29/2020 at 9:27
[2020-06-29] VITALS (21 sets, daily range): BP systolic 101–172; BP diastolic 53–78; PULSE 64–83; RESP 10–20; TEMP 36.1–37.2; O2SAT 92–99; BMI 42.8
[2020-06-29 00:21] LABS: Appearance Urine UA CLEAR; Bacteria Urine None Seen; Bilirubin Urine UA NEGATIVE (NEGATIVE); Color Urine UA YELLOW; Glucose Urine UA NEGATIVE (Negative); Ketones Urine UA NEGATIVE (NEGATIVE); Leukocyte Esterase Urine UA 1+ (NEGATIVE); Nitrite Urine UA NEGATIVE (Negative); Occult Blood Urine UA 3+ (Negative); Protein Urine UA NEGATIVE (Negative); Specific Gravity Urine UA 1.015 (1.000-1.035); Urobilinogen Urine UA 0.2 E.U./dL (0.2)
[2020-06-29] MEDS: SODIUM CHLORIDE 0.9% 1,000 ML 1000 ML IV (00:22)
[2020-06-29] MEDS: TRANEXAMIC ACID 1,000 MG VIAL 1000 MG MM (00:28)
[2020-06-29] MEDS: OXYMETAZOLINE NASAL SPRAY 15 ML 2 SPRAYS NASAL (00:28)
[2020-06-29 00:36] LABS: Culture Indicated Urine Specimen Cultured; RBC Urine 5-10/HPF (0-5/HPF); Squamous Epithelial Cell Urine 1-5 /HPF (0-5/HPF); WBC Urine 1-5/HPF (0-5/HPF)
[2020-06-29 01:09] LABS: COVID19 - ADMIT (NP swab/PCR) Negative (Negative)
[2020-06-29] MEDS: ACETAMINOPHEN 325 MG TABLET 650 MG PO (01:59)
[2020-06-29 02:08] LABS: BUN Creatinine Ratio 20.9 (6-22); Blood Urea Nitrogen 40 mg/dL (7-17); Calcium 8.9 mg/dL (8.4-10.2); Carbon Dioxide 24 mmol/L (22-32); Chloride 109 mmol/L (98-107); Glucose 104 mg/dL (80-110); HEMOLYSIS < 15 (0-50); Potassium 4.9 mmol/L (3.4-5.1); Sodium 140 mmol/L (137-145)
[2020-06-29 03:11] LABS: Procalcitonin 0.08 ng/mL (<0.5)
--- NOTE | 2020-06-29 03:43 | PM.HP.1 ---
History of Present Illness History of Present Illness Date Patient Seen: 06/29/20 Time Patient Seen: 03:30 Chief complaint: Coughing up blood Narrative: Ms. Latonia Bynum is an 84-year-old female with a past medical history significant for paroxysmal atrial fibrillation, hypertension, hypothyroidism obstructive sleep on CPAP, peptic ulcer disease with GI bleed, recurrent UTI, urinary incontinence renal calculi, obstructive uropathy and anxiety presents to the ER via EMS with coughing blood. The patient states that she has had a cough for the last few days which has been dry nonproductive and then developed a laryngitis. Yesterday while watching TV the patient has spontaneous cough which is productive for blood and describes continuing hemoptysis with coughing for which she called EMS. Patient also reports having posterior flank pain also for several days with a history of renal calculi. The patient underwent cystoscopy with Dr. Cho on 05/10/2020 which was a follow-up treatment with Botox with the 1st treatment being April 09, 2020 for urinary incontinence. His note describes patent ureteral loss bilaterally. While in route to the emergency department the patient developed epistaxis with no prior history and is on no anticoagulants other than aspirin 81 mg daily. The patient has had no systemic complaints of fevers or chills, headaches or dizziness, nasal congestion or sore throat. She denies complaints of chest pain or palpitations. She had a cough is described above but denies shortness of breath or wheezing. She denies epigastric or abdominal pain and endorses bilateral flank pain that is constant and non colicky and denies lower abdominal pain. Patient has had prior back surgeries and has residual decreased sensation of the left plantar forefoot and toes. She uses a walker to ambulate. Upon arrival to the ER the patient has heart rate of 77 blood pressure 51/80, respirations 16 saturating 97%. She is applying direct pressure to nasal bridge. Imaging is obtained a chest x-ray which finds right infrahilar rounded opacity secondary to mass versus consolidation, cardiomegaly and opacities secondary to pneumonitis versus atelectasis versus edema follow-up CT of chest pelvis finds scattered atelectasis or scarring with patchy consolidative changes in lower, trace pericardial effusion, bilateral symmetrical severe hydronephrosis with no definite distal obstructing calculi, urinary bladder is mildly distended diffuse irregular wall. Twelve lead EKG is obtained finding a sinus rhythm at 68 with a first-degree AV block with a WA interval of 210 milliseconds, no ectopy, no ST or T-wave changes or indication of infarct. On laboratory analysis she has white count of 9.7 with subtle elevation neutrophils at 7200, hemoglobin of 11.8 and hematocrit of 36.1 and platelets of 203. Her coags are within normal limits. Her chemistries are notable for an initial potassium of 5.2, BUN of 40 and a creatinine of 2.01 with follow-up lab finding potassium of 4.9 and a creatinine 1.91 for an EGFR of 25. Liver functions are within normal limits, procalcitonin is 0.08. Urinalysis shows 3+ blood in positive for leukocyte esterase. In the ER the epistaxis is controlled with application of oxymetazoline, application of silver nitrate and TXA topically. Aragon catheter is place. Following obtaining blood cultures Levaquin 750 mg administered. The patient is admitted to the hospital for left lower lobe pneumonia epistaxis (controlled), acute on chronic renal failure and UTI. Patient History Medical History (Updated 06/29/20 @ 04:40 by PRO Barkley) Anxiety Calculus of kidney Depression GI bleed Gross hematuria History of recurrent UTI (urinary tract infection) HTN (hypertension) Hypothyroid Nephrolithiasis Obstructive uropathy MORGAN on CPAP Peptic ulcer disease Pneumothorax Postmenopausal atrophic vaginitis Ureteral obstruction, left Urinary incontinence, mixed Surgical History (Updated 06/29/20 @ 04:40 by PRO Barkley) H/O gastric bypass H/O mastectomy History of back surgery History of hip replacement History of thyroidectomy Hx of bilateral cataract extraction (2012) Hx of cystoscopy (08/04/19) Nephrostomy status Family & Social History Family History (Updated 06/29/20 @ 04:38 by PRO Barkley) Father Seizures Mother Heart disease Diabetes mellitus Brother No significant medical problems Sister Diabetes mellitus Grandmother Diabetes mellitus Social History: household members spouse Safety & Behavioral: Feels Safe in Current Yes Environment Been Physically Hurt or No Threatened By a Person Tobacco & Substance use: Smoking Status Never smoker alcohol intake never Substance Use Type does not use Meds Home Medications and Allergies Home Medications Medication Instructions Recorded Confirmed Type aspirin 81 mg PO QDAY #0 01/31/16 05/10/20 History citalopram 10 mg PO QDAY #0 01/31/16 05/10/20 History gabapentin [Neurontin] 300 mg PO TID #0 01/31/16 05/10/20 History levothyroxine 100 mcg PO QAM #0 01/31/16 05/10/20 History metoprolol succinate 50 mg PO DAILY 08/04/19 05/10/20 History ospemifene 60 mg tablet 60 mg PO DAILY #90 tab 09/11/19 05/10/20 Rx tramadol 50 mg tablet 50 mg PO Q6H #30 tab 09/22/19 05/04/20 Rx oxycodone 5 mg PO Q4H PRN #14 tab 10/17/19 05/10/20 Rx Allergies Allergy/AdvReac Type Severity Reaction Status Date / Time alcohol Allergy Severe Rash, Verified 05/04/20 15:51 facial swelling amphotericin B AdvReac Severe Jittery, Verified 05/10/20 10:35 [AMPHOTERICIN B] tremors Review of Systems Review of Systems ROS: Yes All systems reviewed with the patient and are negative except as otherwise documented Exam Vital Signs (past 8 hours): - 06/28/20 22:45 06/28/20 22:47 06/28/20 23:00 Pulse Rate 77 75 71 Respiratory Rate 16 Blood Pressure 151/88 H Pulse Oximetry 97 99 100 06/29/20 00:26 06/29/20 00:27 06/29/20 00:30 Pulse Rate 74 74 72 Respiratory Rate Blood Pressure 159/77 H 172/78 H Pulse Oximetry 92 96 99 06/29/20 01:00 06/29/20 01:01 06/29/20 01:30 Pulse Rate 76 73 76 Respiratory Rate Blood Pressure 165/74 H Pulse Oximetry 99 99 98 06/29/20 01:31 06/29/20 02:00 06/29/20 02:30 Pulse Rate 79 77 81 Respiratory Rate Blood Pressure 167/67 H Pulse Oximetry 97 96 96 06/29/20 03:00 06/29/20 03:06 Pulse Rate 83 71 Respiratory Rate 10 L 18 Blood Pressure 145/61 H Pulse Oximetry 98 Oxygen Delivery Method Room Air Narrative Exam Narrative: GENERAL APPEARANCE: well developed, morbidly obese elderly female with a BMI of 43.1 who is in no acute distress. HEENT: Normocephalic, PERRLA, conjunctiva clear, EOMs intact without nystagmus, no sinus tenderness to percussion, no Rhinorrhea or epistaxis, mucous membranes are moist and pink, hoarse voice. NECK/THYROID: neck supple, no JVD, no carotid bruit, trachea midline. LYMPH NODES: no cervical or supraclavicular lymphadenopathy. SKIN: [place], warm and dry, no visible lesions or rashes HEART: regular rate and rhythm, S1-S2, no murmur, no rubs or gallops, brisk capillary refill, no edema LUNGS: Crackles left base with scattered wheezing, no cough present CHEST: Symmetrical movement, no accessory muscle use, good tidal volume. ABDOMEN: Soft, obese, no abdominal tenderness, no guarding or peritoneal signs, no organomegaly, no suprapubic tenderness, active bowel tones. BACK: Normal curvature, nontender to palpation, CVA tenderness on percussion EXTREMITIES: moves all extremities, strength is 5/5 and symmetrical, no deformities or joint effusions. NEUROLOGIC: AAO x4, cranial nerves II-XII grossly intact, Diminished sensation to the left forefoot plantar surface. PSYCH: Briskly interactive, pleasant and cooperative, appropriate with stable behavior Objective Labs Result Diagrams: 06/28/20 22:50 06/29/20 01:38 Labs: Laboratory Results - last 24 hr 06/28/20 06/28/20 06/28/20 22:50 22:50 22:50 WBC 9.7 RBC 3.96 L Hgb 11.8 L Hct 36.1 MCV 91.2 MCH 29.8 MCHC 32.7 RDW 14.0 Plt Count 203 Neut % (Auto) 74.5 Lymph % (Auto) 13.6 L Finney % (Auto) 8.5 Eos % (Auto) 2.5 Baso % (Auto) 0.9 Neut # (Auto) 7200 H Lymph # (Auto) 1300 Finney # (Auto) 800 Eos # (Auto) 200 Baso # (Auto) 100 PT 11.8 INR 1.0 APTT 36 Sodium 139 Potassium 5.2 H Chloride 108 H Carbon Dioxide 22 BUN 40 H Creatinine 2.01 H Estimated GFR 23.6 L BUN/Creatinine Ratio 19.9 Glucose 106 Calcium 9.4 Total Bilirubin 0.3 AST 31 ALT 18 Alkaline Phosphatase 115 Total Protein 7.5 Albumin 4.2 Globulin 3.3 Albumin/Globulin Ratio 1.3 Procalcitonin Urine Color Urine Appearance Urine pH Ur Specific [place] Urine Protein Urine Glucose (UA) Urine Ketones Urine Occult Blood Urine Nitrate Urine Bilirubin Urine Urobilinogen Ur Leukocyte Esterase Urine RBC Urine WBC Ur Squamous Epith Cells Urine Bacteria Ur Culture Indicated? SARS-CoV-2 (PCR) 06/28/20 06/29/20 06/29/20 22:50 00:10 00:13 WBC RBC Hgb Hct MCV MCH MCHC RDW Plt Count Neut % (Auto) Lymph % (Auto) Finney % (Auto) Eos % (Auto) Baso % (Auto) Neut # (Auto) Lymph # (Auto) Finney # (Auto) Eos # (Auto) Baso # (Auto) PT INR APTT Sodium Potassium Chloride Carbon Dioxide BUN Creatinine Estimated GFR BUN/Creatinine Ratio Glucose Calcium Total Bilirubin AST ALT Alkaline Phosphatase Total Protein Albumin Globulin Albumin/Globulin Ratio Procalcitonin 0.08 Urine Color Yellow Urine Appearance Clear Urine pH 6.0 Ur Specific [place] 1.015 Urine Protein Negative Urine Glucose (UA) Negative Urine Ketones Negative Urine Occult Blood 3+ H Urine Nitrate Negative Urine Bilirubin Negative Urine Urobilinogen 0.2 Ur Leukocyte Esterase 1+ H Urine RBC 5-10/hpf H Urine WBC 1-5/hpf Ur Squamous Epith Cells 1-5 /hpf Urine Bacteria None seen Ur Culture Indicated? Specimen cultured SARS-CoV-2 (PCR) Negative 06/29/20 01:38 WBC RBC Hgb Hct MCV MCH MCHC RDW Plt Count Neut % (Auto) Lymph % (Auto) Fin[place] % (Auto) Eos % (Auto) Baso % (Auto) Neut # (Auto) Lymph # (Auto) Finney # (Auto) Eos # (Auto) Baso # (Auto) PT INR APTT Sodium 140 Potassium 4.9 Chloride 109 H Carbon Dioxide 24 BUN 40 H Creatinine 1.91 H Estimated GFR 25.0 L BUN/Creatinine Ratio 20.9 Glucose 104 Calcium 8.9 Total Bilirubin AST ALT Alkaline Phosphatase Total Protein Albumin Globulin Albumin/Globulin Ratio Procalcitonin Urine Color Urine Appearance Urine pH Ur Specific [place] Urine Protein Urine Glucose (UA) Urine Ketones Urine Occult Blood Urine Nitrate Urine Bilirubin Urine Urobilinogen Ur Leukocyte Esterase Urine RBC Urine WBC Ur Squamous Epith Cells Urine Bacteria Ur Culture Indicated? SARS-CoV-2 (PCR) Assessment & Plan Assessment & Plan narrative: The patient is a 84-year-old female with a past medical history significant for paroxysmal atrial fibrillation, hypertension, hypothyroidism, obstructive sleep on CPAP, peptic ulcer disease with history of GI bleed, recurrent UTI, urinary incontinence, renal calculi, obstructive uropathy and anxiety presents to the ER via EMS with coughing blood. The patient is found to have a left lower lobe pneumonia, acute on chronic kidney disease with findings of severe hydronephrosis likely related to obstructive uropathy with no evidence of renal calculi therefore believed related to bladder wall thickening and obstruction of the UVJ. 1. Left lower lobe pneumonia, probable bacterial infection, present on admission, active. -CT scan notes scattered atelectasis and scarring with patchy consolidative changes in left lower lobe. Chest x-ray identified right infrahilar round opacity which is not redemonstrated on CT. -red blood cell count is 9.7 with subtle elevation neutrophils it is 7200, procalcitonin 0.08. Patient with crackles left base and scattered wheezing without tachypnea or hypoxemia. -will obtain respiratory PCR. -patient started on Levaquin 750 mg IV in the ER, will continue Levaquin 750 mg IV every 48 hours. -request respiratory therapy to consult, evaluate and treat. -ordered albuterol MDI 2 puffs every 4 hours as needed. 2. Hemoptysis, present on admission, active -hemoptysis bleed related to pneumonia described above. -imaging finds no concerning masses or lesions. No further recurrence since admission. 3. Epistaxis, right near, present on admission, controlled. -ED provider evaluation finds right septal nasal polyp. -bleeding controlled in the emergency department application of oxymetazoline, silver nitrate and 2 applications of TXA. -reviewed precautions to prevent rebleeding with patient including no sneezing, straining and keeping head elevated. 4. Acute kidney injury on chronic kidney disease, believed related to UVJ obstruction from bladder wall thickening, present on admission, active. -initial labs find a creatinine of 2.01 which improves to 1.91 following 1 L of IV fluid. Previous creatinine was 1.17 on 08/06/2019. EGFR is 25, creatinine clearance is calculated at 32.19. -severe symmetrical hydronephrosis, history of renal calculi with no obstructing stone visualize on CT with notation of streak artifact from hip prosthesis, bladder wall is thickened and irregular. -operative report by Dr. Cho on 05/10/2020 describes patent ureteral os bilaterally. -will follow renal function closely on serial chemistries. -requested Dr. Cho to consult. 5. Acute cystitis, present on admission, active -urinalysis positive for blood and leukocyte esterase. -patient started on Levaquin 750 mg IV in the ER, will continue Levaquin 750 mg IV every 48 hours. 6. Paroxysmal atrial fibrillation, in sinus rhythm with first-degree AV block, stable -patient initially with a potassium of 5.2 on initial labs reducing to 4.9 following IV fluid. -will obtain a magnesium level. -will continue home regimen of metoprolol succinate 50 mg daily. -cardiac telemetry. VTE prophylaxis: SCDs, chemical prophylaxis contraindicated. IV fluid: Normal saline at 75 cc/hour Diet: Heart healthy Code status: DO NOT RESUSCITATE, patient designates her to be her surrogate decision maker. The patient is admitted to the hospital due to hemoptysis secondary to pneumonia complicated by urinary tract infection with acute kidney injury. The patient is admitted to the hospital further monitoring evaluation prevent complications adverse events with expected length of stay to be greater than 2 midnights. COVID-19 COVID-19 status: Negative Result date/Date tested (Pos, Neg/Pending): 06/29/20 Scores GCS [place] coma scale eye opening: Spontaneous Owen coma scale verbal response: Orientated Idalou coma scale motor response: Obey commands Owen coma scale total score: 15 Quality MIPS - Admit I confirm the patient?s Advance Care Plan is present, Code status is documented, Surrogate decision maker is in patient?s record [If Yes, STOP here]: Yes
[2020-06-29] MEDS: levoFLOXacin 750 MG/150 ML PIGGYBACK 100 MG IV (04:31)
[2020-06-29] MEDS: SODIUM CHLORIDE 0.9% 1,000 ML 75 ML IV ×2 (04:31→19:22)
[2020-06-29 04:39] LABS: NT-proBNP (BNP-Adult 18+) 1930 pg/mL (<450)
[2020-06-29] MEDS: OXYCODONE IR 5 MG TABLET PO ×3 (04:40→16:47)
[2020-06-29 05:57] LABS: Add Manual Diff / Slide Review NO; Basophils Absolute Auto 100 /uL (0-100); Basophils Percent Auto 0.8 % (0-2); Eosinophils Absolute Auto 200 /uL (0-450); Eosinophils Percent Auto 2.2 % (2-4); Hematocrit 33.9 % (36-46); Hemoglobin 11.2 g/dL (12.0-16.0); Lymphocytes Absolute Auto 1200 /uL (1100-4500); Lymphocytes Percent Auto 14.2 % (25-40); Mean Corpuscular Hemoglobin 29.8 PG (26-34); Mean Corpuscular Volume 90.2 fL (80-100); Monocytes Absolute Auto 800 /uL (0-900); Monocytes Percent Auto 9.1 % (3-14); Neutrophils Absolute Auto 6400 /uL (1500-7000); Neutrophils Percent Auto 73.7 % (50-75); Platelet Count 195 X10^3/uL (150-400); Red Blood Cell Count 3.76 X10^6/uL (4.0-5.2); Red Cell Distribution Width 13.6 % (11.6-14.8); White Blood Cell Count 8.6 X10^3/uL (4.5-11.0)
[2020-06-29 06:06] LABS: Blood Urea Nitrogen 37 mg/dL (7-17); Calcium 8.9 mg/dL (8.4-10.2); Carbon Dioxide 24 mmol/L (22-32); Chloride 108 mmol/L (98-107); Glucose 135 mg/dL (80-110); HEMOLYSIS < 15 (0-50); Potassium 4.9 mmol/L (3.4-5.1); Sodium 139 mmol/L (137-145)
--- NOTE | 2020-06-29 06:17 | PC.NURSE ---
Admit/Night Note-Patient A/Ox4 when brought to ICU Room 228, steady stand and pivot to bed, incontinent loose stool x3, Aragon catheter patent. A-fib CVR, VSS, RA >93%, LS dim LLL otherwise CTA, occasional dry cough, NS @ 75ml/hr, Levaquin infused, 5mg oxycodone given for Rt flank pain. See assessment notes.
[2020-06-29 07:07] LABS: Adenovirus Not Detected (Not Detect); B. parapertussis Not Detected (Not Detecte); Bordetella pertussis Not Detected (Not Detecte); Chlamydophila pneumoniae Not Detected (Not Detect); Coronavirus 229E Not Detected (Not Detect); Coronavirus HKU1 Not Detected (Not Detect); Coronavirus NL 63 Not Detected (Not Detect); Coronavirus OC43 Not Detected (Not Detect); Human Metapneumovirus Not Detected (Not Detect); Human Rhinovirus/Enterovirus Not Detected (Not Detect); Influenza A Not Detected (Not Detect); Influenza B Not Detected (Not Detect); Mycoplasma pneumoniae Not Detected (Not Detect); Parainfluenza Virus 1 Not Detected (Not Detect); Parainfluenza Virus 2 Not Detected (Not Detect); Parainfluenza Virus 3 Not Detected (Not Detect); Parainfluenza Virus 4 Not Detected (Not Detect); Respiratory Syncytial Virus Not Detected (Not Detect); SARS- CoV-2 Not Detected (Not Detecte)
[2020-06-29] MEDS: CITALOPRAM 10 MG TABLET PO (09:03)
[2020-06-29] MEDS: METOPROLOL ER 50 MG TABLET PO (09:04)
--- NOTE | 2020-06-29 10:55 | CM.DANOTE ---
Discharge Planning/Care Management DCP: assessment: case received, EMR reviewed and met with pt during Team Rounds. Checked back with pt after Rounds to obtain more information. Pt is an 84 year old female who lives with Melquiades on [facility]. She admitted early this mornin to care of hospitalist team. PCP: Dr. Joshi Pt confirms that a navarro catheter was placed in the ER and that she was scheduled to see Dr. Anderson in his urology clinic today at 1100. Dr. Sands said she would be contacting Dr. Anderson for further discussion. Pt says she will gladly d/c back home with the navarro if need be but I will need some training on how to care for it. Payer: Medicare and [facility]. Admission status: in review: per UR KARRIE Gayle. P: DCP team will be following. At this time it appears that pt will likely d/c to home and with PCP and Urology clinic followup but more she be known as the day unfolds. CM Discharge Assessment Start: 06/29/20 10:53 Freq: Status: Active Protocol: Document 06/29/20 10:53 ITV (Rec: 06/29/20 10:55 ITV [id number]) Discharge Planning Assessment Advance Directives? Yes Advance Directives on File Yes History Provided By Patient,Medical Record Prior Living Arrangements House Comment they reside on [facility]/ accessible by [employer]. Household Members spouse Independent with ADL's Yes Is patient alert and oriented? Yes DME Already Rented / Owned FWW / Walker Comment uses 4WW: one for inside the house. another is more portable and goes easily in the car pt states. Transportation Arrangement Melquiades will pick her up at d/c
--- NOTE | 2020-06-29 12:56 | DIET.PN ---
Dietary Progress Note 84y F who is followed by RD/CDE Keya William for outpatient DM2 management. Pt attended RD meeting last week to review updated A1c of 6.5 indicating good control. Pt was instructed by urologist to reduce carb intake and increase protein and fat intake. Pt counseled as outpatient to steer towards plant-based fats rather than saturated fats. Stewart to visit c pt today up on floor.
[2020-06-29] MEDS: methocarbamoL 500 MG TABLET PO ×2 (14:32→20:48)
--- NOTE | 2020-06-29 14:51 | PC.NURSE ---
Addendum entered by Myrna Gil R.N. 06/29/20 15:10: Urine output 250ml F/C Original Note: Day shift note: Patient awake, alert and pleasantly cooperative. VSS and afebrile. Remain on RA, sats 95%. Voice is hoarse, patients states loss of voice off/on and hoarseness developed a few days ago. No difficulty breathing, upper airway. F/C in place to gravity, clear cloudy yellow urine. IVF infusing. Tele removed as ordered, prior to removal Afib CVR. X1 episode of incontinence of bowel. Up out of bed to chair with 1PA FWW, tolerating mobility without change in breathing effort. NO hemoptysis or epistaxis this shift. C/O right flank pain described as spasms radiating down buttocks. RObaxin x 1 PRN as ordered with adequate relief. Excellent PO intake. Spouse Bill (support person) to bring CPAP this phoebe in addition to DM medication name that was started 1 week ago by PMD Dr. Joshi. Calls appropriately for staff assist.
[2020-06-30 04:41] VITALS: BP 135/61; PULSE 55; RESP 20; TEMP 36.3; O2SAT 93
[2020-06-30 05:12] LABS: BUN Creatinine Ratio 17.1 (6-22); Blood Urea Nitrogen 36 mg/dL (7-17); Calcium 9.1 mg/dL (8.4-10.2); Carbon Dioxide 25 mmol/L (22-32); Chloride 109 mmol/L (98-107); Estimated Glomerular Filt Rate 22.4 mL/min (>60); Glucose 109 mg/dL (80-110); HEMOLYSIS < 15 (0-50); Sodium 141 mmol/L (137-145)
[2020-06-30 05:13] LABS: Potassium 5.2 mmol/L (3.4-5.1)
[2020-06-30 05:21] LABS: NT-proBNP (BNP-Adult 18+) 3000 pg/mL (<450)
[2020-06-30] MEDS: LEVOTHYROXINE 100 MCG TABLET PO (06:14)
[2020-06-30] MEDS: methocarbamoL 500 MG TABLET PO (06:44)
[2020-06-30 07:21] VITALS: PULSE 63; RESP 18; O2SAT 96
[2020-06-30 07:35] VITALS: BP 132/63; PULSE 63; RESP 18; TEMP 36.7; O2SAT 97
[2020-06-30 07:54] VITALS: BP 132/63; PULSE 67
[2020-06-30] MEDS: METOPROLOL ER 50 MG TABLET PO (07:54)
[2020-06-30] MEDS: CITALOPRAM 10 MG TABLET PO (07:55)
[2020-06-30 09:05] VITALS: PULSE 63
--- NOTE | 2020-06-30 09:21 | DIET.PN ---
Dietary Progress Note Assessment: 84y F admitted for left lower lobe pneumonia, acute on chronic kidney disease with findings of severe hydronephrosis likely related to obstructive uropathy with no evidence of renal calculi therefore believed related to bladder wall thickening and obstruction of the UVJ referred to nutrition for morbid obesity and review of dietary plan. HT: 147.3cm WT: 93.1kg BMI: 42.9 Pt has limited mobility and uses walker secondary to reduced sensation on feet. Pt completed DSME program recently c RD/CDE at with good control of DM2, however, pt recently was taken off metformin secondary to GI sx. Pt is being given nutrition advice by her DM educator (low carb, high fiber), urologist (low carb, high pro, high fat), and PCP (red meat). Pt was told she is anemic (hgb 11.2) so was instructed to eat more steak Usual Day: B: Rex's thin sliced toast c scrambled egg, cheese and veggies, glass of Diet [place] Camilla juice L: sandwich or soup D: meat, starch and veg (pt would prefer 2 veg instead of starch, but often does not do this because it is not her 's preference) Dessert: 1/2 apple Labs:hgb 11.2 L, K+ 5.2 H, Cr 2.1 H, eGFR 22.4 L, NTproBNP 3000 H, A1c 6.5 Nutrition Diagnosis: 1. morbid obesity r/t physical inactivity and undesirable food choices aeb BMI 42, pt has limited mobility and uses walker, pt portion sizes likely too large related to energy expenditure. 2. altered nutrition related laboratory values (k+, eGFR, Cr) r/t nutrition related knowledge deficit aeb K+ 5.2 pt reports eating potatoes c dinner most days, eGFR 22.4 and Cr 2.1 pt has been instructed to increase intake protein including red meat, BMI 42 pt has been instructed to increase dietary fat intake. Interventions: 1. Reviewed pts usual intake with suggestions to modify to promote healthy body weight, renal fxn and continued control of DM2. Pt will limit cheese at breakfast and only drink beverages without added sugar and limit juice to 4oz a few times a week, ideally eliminating completely. Pt will increase vegetable content of homemade soups and decrease any grain products, will use high quality proteins whether animal based or plant based. Pt will fix herself two veg instead of eating the starch (potato) at dinnertime. 2. Pts hgb is 11.2. Discussed variety of iron containing foods including beans, pumpkin seeds, oysters, and clams. Recc if pt does eat red meat, to limit it to 3oz once or twice per week and to choose lean cuts only. 3. Encouraged pt to avoid boredom snacking and to moderate portion sizes to avoid further weight gain and to promote weight loss. Diet Order: HH, recc 2g K+ limit EER: 1400 kcal (15kcal/kg per morbid obesity and limited mobility), 56g PRO (0.6g/kg per renal fxn) Monitoring/Evaluations:POs, associated labs
[2020-06-30] MEDS: TRAMADOL 50 MG TABLET PO (10:50)
--- NOTE | 2020-06-30 11:42 | PC.NURSE ---
Addendum entered by Lesia Valdovinos R.N. 06/30/20 11:47: Pt home CPAP at bedside. Original Note: PT up to chair at 0755, no complaints of pain while transferring to chair and after transfer. Pt up to chair until about 1015, when she took a shower with [employer] FOUNDER AND CHAIRMAN assistance. At beginning of shift, pt had a moist, nonproductive cough that per computer consultant had newly developed over night. Pt placed on pulse oximetry, SaO2 maintaining in the high 90s on room air. While lying flat in bed, coarse crackles heard to lung bases Pt lung sounds clear bilaterally anterior and posterior while up to chair. At 1000 lung sounds clear a/p bilaterally while sitting up to chair. Pt is hemodynamically stable and plans to d/c this afternoon with navarro catheter in place. Followup with Dr. Cho ordered for one month from now.
[2020-06-30 13:30] VITALS: BP 103/54; PULSE 74; RESP 21; TEMP 36.6; O2SAT 98
--- NOTE | 2020-06-30 13:41 | PC.NURSE ---
pt discharge instructions reviewed, IV removed, and follow up care/medications reviewed. Pt off the unit by 1320.
--- NOTE | 2020-06-30 18:36 | P.DS_ITS ---
History of Present Illness History of Present Illness Date Patient Seen: 06/30/20 Chief complaint: Coughing up blood Narrative: Ms. Latonia Bynum is an 84-year-old female with a past medical history significant for paroxysmal atrial fibrillation, hypertension, hypothyroidism obstructive sleep on CPAP, peptic ulcer disease with GI bleed, recurrent UTI, urinary incontinence renal calculi, obstructive uropathy and anxiety presents to the ER via EMS with coughing blood. The patient states that she has had a cough for the last few days which has been dry nonproductive and then developed a laryngitis. Yesterday while watching TV the patient has spontaneous cough which is productive for blood and describes continuing hemoptysis with coughing for which she called EMS. Patient also reports having posterior flank pain also for several days with a history of renal calculi. The patient underwent cystoscopy with Dr. Cho on 05/10/2020 which was a follow- up treatment with Botox with the 1st treatment being April 09, 2020 for urinary incontinence. His note describes patent ureteral loss bilaterally. While in route to the emergency department the patient developed epistaxis with no prior history and is on no anticoagulants other than aspirin 81 mg daily. The patient has had no systemic complaints of fevers or chills, headaches or dizziness, nasal congestion or sore throat. She denies complaints of chest pain or palpitations. She had a cough is described above but denies shortness of breath or wheezing. She denies epigastric or abdominal pain and endorses bilateral flank pain that is constant and non colicky and denies lower abdominal pain. Patient has had prior back surgeries and has residual decreased sensation of the left plantar forefoot and toes. She uses a walker to ambulate. Upon arrival to the ER the patient has heart rate of 77 blood pressure 51/80, respirations 16 saturating 97%. She is applying direct pressure to nasal bridge. Imaging is obtained a chest x-ray which finds right infrahilar rounded opacity secondary to mass versus consolidation, cardiomegaly and opacities secondary to pneumonitis versus atelectasis versus edema follow-up CT of chest pelvis finds scattered atelectasis or scarring with patchy consolidative changes in lower, trace pericardial effusion, bilateral symmetrical severe hydronephrosis with no definite distal obstructing calculi, urinary bladder is mildly distended diffuse irregular wall. Twelve lead EKG is obtained finding a sinus rhythm at 68 with a first-degree AV block with a HI interval of 210 milliseconds, no ectopy, no ST or T-wave changes or indication of infarct. On laboratory analysis she has white count of 9.7 with subtle elevation neutrophils at 7200, hemoglobin of 11.8 and hematocrit of 36.1 and platelets of 203. Her coags are within normal limits. Her chemistries are notable for an initial potassium of 5.2, BUN of 40 and a creatinine of 2.01 with follow-up lab finding potassium of 4.9 and a creatinine 1.91 for an EGFR of 25. Liver functions are within normal limits, procalcitonin is 0.08. Urinalysis shows 3+ blood in positive for leukocyte esterase. In the ER the epistaxis is controlled with application of oxymetazoline, application of silver nitrate and TXA topically. Aragon catheter is place. Following obtaining blood cultures Levaquin 750 mg administered. The patient is admitted to the hospital for left lower lobe pneumonia epistaxis (controlled), acute on chronic renal failure and UTI. Discharge Providers Provider Date of admission: 06/29/20 03:38 Discharge Date: 06/30/20 Primary care physician: Sd Joshi MD Consults: 06/29/20 04:18 Consult to Dietitian, Adult Routine Comment: Reason For Exam: Morbid obesity, BMI 42.8 Consult to Discharge Planning Routine Comment: Consult to Respiratory Therapy Evaluate & Treat Comment: Left lower lobe pneumonia Physician Instructions: Evaluate and treat 06/29/20 04:49 Consult to General Surgery Routine Comment: Consulting Provider: Leopoldo Cho Reason for consultation: UTI, CAYETANO, hydronephrosis, hydroureter Has provider been notified: No 06/29/20 16:32 Consult to Dietitian, Adult Routine Comment: morbid obesity Reason For Exam: review dietary plan Discharge provider: Maddy Sands MD Summary Hospital Course Discharge Diagnosis: 1. Pneumonia, probable Gram-negative pneumonia 2. Hemoptysis likely secondary to pneumonia 3. Epistaxis resolved 4. Acute kidney injury likely related to chronic bladder ureter dysfunction 5. Acute cystitis 6. Paroxysmal atrial fibrillation Hospital Course: Patient was admitted to the hospital and treated for pneumonia given her hemoptysis. She also has ongoing bladder issues and was found to have acute cystitis. The patient was placed on levofloxacin 750 every other day for treatment of both pneumonia and UTI. Aragon catheter was placed which the patient greatly appreciated. She had no further hemoptysis. She denied any shortness of breath. She remained afebrile. She was not hypoxic. In addition the patient did complain of right flank pain over her kidney. She also complained of right bilateral buttock pain which at times radiated to the right knee. This pain had been present for 5 weeks. The patient was given oral medication for that which seemed to help. She made slow but steady progress and was deemed appropriate for discharge. Arrangements were made to discharge the patient home. She will follow-up with Dr. Cho as scheduled in 1 month. Patient will follow-up with her PCP regarding her pneumonia in the next week. Status at Discharge Cognitive/behavioral status at discharge: oriented Functional status at discharge: independent ambulation Overall status at discharge: patient is back to baseline Time Spent with Patient Time spent: Less than 30 minutes Exam Vital Signs (past 8 hours): - 06/30/20 13:30 Temperature 97.8 F Pulse Rate 74 Respiratory Rate 21 Blood Pressure 103/54 L Pulse Oximetry 98 Oxygen Delivery Method Room Air Oxygen Flow Rate 0 Narrative Exam Narrative: Pleasant female in no obvious distress Lungs: Clear to auscultation Cardiac exam: Regular rate and rhythm normal S1-S2 Abdomen soft nontender Aragon catheter in place Extremities: No edema Objective Labs Result Diagrams: 06/29/20 05:45 06/30/20 04:30 Labs: Laboratory Results - last 24 hr 06/30/20 04:30 Sodium 141 Potassium 5.2 H Chloride 109 H Carbon Dioxide 25 BUN 36 H Creatinine 2.10 H Estimated GFR 22.4 L BUN/Creatinine Ratio 17.1 Glucose 109 Calcium 9.1 NT-Pro-B Natriuret Pep 3000 H PFS Medical History (Updated 06/29/20 @ 04:40 by PRO Barkley) Anxiety Calculus of kidney Depression GI bleed Gross hematuria History of recurrent UTI (urinary tract infection) HTN (hypertension) Hypothyroid Nephrolithiasis Obstructive uropathy MORGAN on CPAP Peptic ulcer disease Pneumothorax Postmenopausal atrophic vaginitis Ureteral obstruction, left Urinary incontinence, mixed Surgical History (Updated 06/29/20 @ 04:40 by PRO Barkley) H/O gastric bypass H/O mastectomy History of back surgery History of hip replacement History of thyroidectomy Hx of bilateral cataract extraction (2012) Hx of cystoscopy (08/04/19) Nephrostomy status Family History (Updated 06/29/20 @ 04:39 by PRO Barkley) Father Seizures Mother Heart disease Diabetes mellitus Brother No significant medical problems Sister Diabetes mellitus Grandmother Diabetes mellitus Social History household members: spouse Smoking Status: Never smoker alcohol intake: never eating out: rarely or never Type(s) of exercise: none Discharge Assessment & Plan Assessment and Plan Assessment: 1. Acute Renal Failure 2. Pneumonia probable gram negative 3.Paroxysmal Afib 4. Hemoptysis-resolved 5. Epistaxis-resolved Plan of Treatment: Medications as prescribed Follow up with Urology ( [facility] in one month) F/u with PCP next week Discharge Plan Discharge Plan Patient Disposition: Home Discharge orders & Medications Prescriptions: New tramadol 50 mg Tablet 50 mg PO Q12H PRN (Reason: Pain, Moderate (4-6)) Qty: 20 RF: 0 oxycodone 5 mg Tablet 5 mg PO Q6HR PRN (Reason: Pain, Moderate (4-6)) Qty: 20 RF: 0 levofloxacin 500 mg tablet 500 mg PO DAILY Qty: 3 RF: 0 Continued citalopram 10 MG tablet 10 mg PO QDAY Qty: 0 RF: 0 levothyroxine 100 MCG tablet 100 mcg PO QAM Qty: 0 RF: 0 aspirin 81 MG tablet,chewable 81 mg PO QDAY Qty: 0 RF: 0 gabapentin [Neurontin] 300 MG capsule 300 mg PO TID Qty: 0 RF: 0 oxycodone 5 mg tablet 5 mg PO Q4H PRN (Reason: pain) Qty: 14 RF: 0 metoprolol succinate 50 mg tablet extended release 24 hr 50 mg PO DAILY RF: 0 Osphena 60 mg tablet 60 mg PO DAILY Qty: 90 RF: 3 Discontinued tramadol 50 mg tablet 50 mg PO Q6H Qty: 30 RF: 0 Follow up/Referrals: Sd Joshi MD [Primary Care Provider] - Discharge Health Status Care Plan Goals: follow up with Dr. Cho in one month Multidrug resistant organism: No MDRO Diet/Activity/Treatments Diet: Diet as Tolerated Catheter: 2-way Aragon Visit Report/Discharge Packet Instructions: How to Care for Your Aragon Catheter -- Female Discharge Data Primary Care Provider: Sd Joshi
== END 2020-06-30 13:15 | disposition home or self-care (01) | DRG 178 ==
LOC: ED 06-29 02:48 → ICU 06-29 10:00 → AC 06-29 11:10 → ICU 06-29 11:10
PROVIDERS: Internal Medicine; Admitting Provider Nurse Practitioner Adult Health; Emergency Provider Emergency Medicine; PCP Family Medicine; Referring Provider Emergency Medicine; Visit Provider Nurse Practitioner Adult Health
DX: J15.6 Pneumonia due to other Gram-negative bacteria (principal); R04.2 Hemoptysis; N17.9 Acute kidney failure, unspecified; N13.6 Pyonephrosis; Z68.41 Body mass index [BMI] 40.0-44.9, adult; R04.0 Epistaxis; I48.0 Paroxysmal atrial fibrillation; E66.01 Morbid (severe) obesity due to excess calories; Z71.3 Dietary counseling and surveillance; G47.33 Obstructive sleep apnea (adult) (pediatric); I10 Essential (primary) hypertension; E03.9 Hypothyroidism, unspecified; F41.9 Anxiety disorder, unspecified; Z20.822 Contact with and (suspected) exposure to COVID-19; N39.46 Mixed incontinence
CPT/HCPCS: 30905; 36415; 51701; 71045; 71250; 74176; 80048; 80053; 81001; 82962; 83735; 83880; 84145; 85025; 85610; 85730; 87040; 87086; 87633; 87635; 87797; 93005; 94762; 96360; 99285; C9803; A9270; J1815; J1956

== ENCOUNTER → 2020-09-01 09:56 | Outpatient (CLI) | payer MEDICARE, OTHER, SELFPAY ==
[2020-07-13 14:43] VITALS: BMI 42.8
== END ==
PROVIDERS: PCP Family Medicine; Visit Provider Specialist
DX: N31.9 Neuromuscular dysfunction of bladder, unspecified (principal); N95.2 Postmenopausal atrophic vaginitis; R32 Unspecified urinary incontinence; Z87.440 Personal history of urinary (tract) infections; N20.0 Calculus of kidney; N32.81 Overactive bladder; N39.490 Overflow incontinence; R31.0 Gross hematuria; N13.9 Obstructive and reflux uropathy, unspecified; N39.0 Urinary tract infection, site not specified
CPT/HCPCS: 51702; 87077; 87086; 87186

== ENCOUNTER 2020-09-05 09:47 | Inpatient (IN) | payer MEDICARE, OTHER, SELFPAY ==
[2020-07-13 14:43] VITALS: BMI 42.8
[2020-09-05] VITALS (7 sets, daily range): BP systolic 95–112; BP diastolic 51–67; PULSE 61–90; RESP 14–16; TEMP 36.1–36.7; O2SAT 95–97; BMI 42.8
--- NOTE | 2020-09-05 10:11 | DI.RAD.S_ITS ---
PROCEDURE: XR CHEST 1V INDICATIONS: suspected sepsis TECHNIQUE: One view of the chest was acquired. COMPARISON: [facility], CR, XR CHEST 1V, 06/28/2020, 22:43. FINDINGS: Surgical changes and devices: Lower neck region surgical clips. Lungs and pleura: Lungs are clear. No pleural effusions or pneumothorax. Mediastinum: Mediastinal contours appear normal. Question mild cardiomegaly. Bones and chest wall: No suspicious bony lesions. Severe glenohumeral joint degenerative arthritis of the right shoulder. Overlying soft tissues appear unremarkable. IMPRESSION: Question mild cardiomegaly. No evidence acute pulmonary process. Dictated by: Miguel Anders M.D. on 09/05/2020 at 9:41 Approved by: Miguel Anders M.D. on 09/05/2020 at 9:43
--- NOTE | 2020-09-05 10:40 | ED.SEPSIS ---
HPI - Sepsis General Chief Complaint: Urogenital-Female Mode of arrival: Ambulatory Source: patient Limitations: no limitations Evaluation Sepsis Screen: No Definite Risk Sepsis Infection Criteria Present: Suspected New Infection Narrative: Patient is a 85-year-old female with history of atrial fibrillation who presents with abdominal pain nausea and Aragon catheter issues. She is followed by Dr. Cho she had Aragon catheter placed for incontinence. Aragon catheter was exchanged couple of times on SundaySeptember 01. She says she kept leaking around the catheter. 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 She is noted to be hypotensive in the emergency department overall looks well. Review of Systems Review of Systems Narrative: GENERAL: Denies chills, fatigue, malaise, fever, sweats, travel HEENT: Denies sinus pain, ear pain, sore throat, difficulty swallowing, neck pain RESPIRATORY: Denies dyspnea, cough, wheezing, hemoptysis, sputum. CARDIOVASCULAR: Denies chest pain, palpitations, orthopnea, edema GASTROINTESTINAL: See HPI : Aragon catheter with incontinence, see HPI MUSCULOSKELETAL: Denies weakness, joint pain, or bony pain SKIN: No rash, no erythema, no pruritus NEUROLOGIC: Denies weakness, dizziness, headache, numbness, change in speech, confusion PSYCHIATRIC: No concerning psychosocial issues. 12 point review of systems is negative except for those stated above and HPI Patient History Medical History (Updated 09/05/20 @ 14:33 by Marina Monsivais DO) Anxiety Calculus of kidney Depression GI bleed Gross hematuria History of recurrent UTI (urinary tract infection) HTN (hypertension) Hypothyroid Nephrolithiasis Noncompliant neurogenic bladder Obstructive uropathy MORGAN on CPAP Peptic ulcer disease Pneumothorax Postmenopausal atrophic vaginitis Ureteral obstruction, left Urinary incontinence, mixed Surgical History H/O gastric bypass H/O mastectomy History of back surgery History of hip replacement History of thyroidectomy Hx of bilateral cataract extraction (2012) Hx of cystoscopy (08/04/19) Nephrostomy status Family History Father Seizures Mother Heart disease Diabetes mellitus Brother No significant medical problems Sister Diabetes mellitus Grandmother Diabetes mellitus Social History household members: spouse Smoking Status: Never smoker alcohol intake: never eating out: rarely or never Type(s) of exercise: none Smoking Status: Never smoker alcohol intake frequency: other Substance Use Type: does not use Exam Initial Vital Signs Initial Vital Signs: Vital Signs Temperature 98.1 F 09/05/20 09:50 Pulse Rate 70 09/05/20 09:50 Respiratory Rate 14 09/05/20 09:50 Blood Pressure 100/51 L 09/05/20 09:50 Pulse Oximetry 96 09/05/20 09:50 GENERAL: Alert well-appearing 85-year-old female and in no acute distress. HEENT: Head atraumatic,EOMI, pupils reactive, face symmetric, moist mucous membranes CARDIOVASCULAR: Regular rate and rhythm without murmurs, rubs or gallops. RESPIRATORY: Breath sounds equal bilaterally, no wheezes rales or rhonchi. ABDOMEN: Soft, mild tenderness no guarding or rebound : Aragon catheter in place and draining EXTREMITIES: Normal range of motion, no clubbing or edema. Neurovascularly intact NEUROLOGICAL: Alert and oriented x4.Normal gait and speech. SKIN: Warm, dry, no laceration, no petechiae, no rashes or lesions. Course Orders Ordered: ED Orders 09/05/20 10:40 CT abdomen pelvis wo con Stat 09/05/20 10:47 Complete Blood Count AUTO DIFF Stat Comprehensive Metabolic Panel Stat Lactate (Lactic Acid) Stat Lipase Stat Procalcitonin Stat 09/05/20 11:25 Blood Culture Stat 09/05/20 11:30 COVID19 - ADMIT (SHANK CEMENTER HAND swab/PCR) Stat 09/05/20 11:45 Education, smoking cessation ONGOING 09/05/20 11:47 Consult to Physical Therapy Evaluate & Treat 09/05/20 12:11 Urinalysis and Microscopic Stat Urine Culture Stat 09/06/20 07:00 Basic Metabolic Panel Routine Complete Blood Count AUTO DIFF Routine Magnesium Routine Aspirin (Aspirin 81 Mg Chew Tab) 81 mg PO DAILY [facility] Last Admin: 09/05/20 14:04 Dose: 81 mg Documented by: CPETRIC Bisacodyl (Bisacodyl 5 Mg Tablet) 10 mg PO DAILY PRN PRN Reason: Constipation Citalopram Hydrobromide (Citalopram 10 Mg Tablet) 10 mg PO DAILY [facility] Last Admin: 09/05/20 14:04 Dose: 10 mg Documented by: CPETRIC Enoxaparin Sodium (Enoxaparin 30 Mg/0.3 Ml Syringe) 30 mg SUBCUT DAILY [facility] Gabapentin (Gabapentin 300 Mg Capsule) 300 mg PO BEDTIME [facility] Sodium Chloride (Normal Saline 0.9%) 1,000 mls @ 84 mls/hr IV CONT [facility] Last Admin: 09/05/20 14:04 Dose: 84 mls/hr Documented by: BURT Ceftriaxone Sodium 1,000 mg/ (Sodium Chloride) 100 mls @ 200 mls/hr IV NOW ONE Stop: 09/06/20 22:41 Levothyroxine Sodium (Levothyroxine 100 Mcg Tablet) 100 mcg PO DAILY@0600 [facility] Last Admin: 09/05/20 14:04 Dose: Not Given Documented by: BURT Metoprolol Succinate (Metoprolol Er 50 Mg Tablet) 50 mg PO DAILY [facility] Naloxone HCl (Naloxone 0.4 Mg/Ml Vial) 0.2 mg IV Q2MIN PRN PRN Reason: Opiate Reversal Tramadol HCl (Tramadol 50 Mg Tablet) 50 mg PO Q12H PRN PRN Reason: Pain, Moderate (4-6) Last Admin: 09/05/20 14:36 Dose: 50 mg Documented by: BURT Discontinued Medications Sodium Chloride (Normal Saline 0.9%) 1,000 mls @ 1,000 mls/hr IV BOLUS ONE Stop: 09/05/20 11:10 Last Infusion: 09/05/20 12:42 Dose: 0 mls/hr Documented by: Admin: 09/05/20 10:53 Dose: 1,000 mls/hr Documented by: WIN Sodium Chloride (Normal Saline 0.9%) 1,000 mls @ 1,000 mls/hr IV BOLUS ONE Stop: 09/05/20 11:39 Last Infusion: 09/05/20 14:05 Dose: 0 mls/hr Documented by: Infusion: 09/05/20 13:08 Dose: 1,000 mls/hr Documented by: Admin: 09/05/20 12:48 Dose: 1,000 mls/hr Documented by: WIN Ceftriaxone Sodium 1,000 mg/ (Sodium Chloride) 100 mls @ 200 mls/hr IV NOW ONE Stop: 09/05/20 10:41 Last Infusion: 09/05/20 12:42 Dose: 0 mls/hr Documented by: Admin: 09/05/20 11:28 Dose: 200 mls/hr Documented by: WIN Levothyroxine Sodium (Levothyroxine 100 Mcg Tablet) 100 mcg PO DAILY [facility] Vital Signs Vital signs: Vital Signs - 8 hr 09/05/20 09:50 Temperature 98.1 F Pulse Rate 70 Respiratory Rate 14 Blood Pressure 100/51 L Pulse Oximetry 96 MDM - Sepsis Lab Data Result diagrams: 09/05/20 10:47 09/05/20 10:47 Labs: Lab Results 09/05/20 09/05/20 09/05/20 Range/Units 10:47 10:47 10:47 WBC 13.4 H (4.5-11.0) X10^3/uL RBC 4.04 (4.0-5.2) X10^6/uL Hgb 11.6 L (12.0-16.0) g/dL Hct 36.3 (36-46) % MCV 89.9 (80-100) fL MCH 28.8 (26-34) PG MCHC 32.0 (30-36) % RDW 14.5 (11.6-14.8) % Plt Count 217 (150-400) X10^3/uL Neut % (Auto) 76.8 H (50-75) % Lymph % (Auto) 8.0 L (25-40) % Gregg % (Auto) 13.7 (3-14) % Eos % (Auto) 1.0 L (2-4) % Baso % (Auto) 0.5 (0-2) % Neut # (Auto) 98518 H (2651-1606) /uL Lymph # (Auto) 1100 (5805-6329) /uL Gregg # (Auto) 1800 H (0-900) /uL Eos # (Auto) 100 (0-450) /uL Baso # (Auto) 100 (0-100) /uL Sodium 137 (137-145) mmol/L Potassium 5.2 H (3.4-5.1) mmol/L Chloride 106 (98-107) mmol/L Carbon Dioxide 20 L (22-32) mmol/L BUN 58 H (7-17) mg/dL Creatinine 2.59 H (0.52-1.04) mg/dL Estimated GFR 17.6 L (>60) mL/min BUN/Creatinine Ratio 22.4 H (6-22) Glucose 75 L (80-110) mg/dL Lactate 0.7 (0.7-2.1) mmol/L Calcium 9.0 (8.4-10.2) mg/dL Total Bilirubin 0.3 (0.2-1.3) mg/dL AST 50 H (14-36) IU/L ALT 41 H (<35) IU/L Alkaline Phosphatase 117 (38-126) U/L Total Protein 6.9 (6.3-8.2) g/dL Albumin 3.5 (3.5-5.0) g/dL Globulin 3.4 (1.7-4.1) g/dL Albumin/Globulin Ratio 1.0 (1.0-2.8) Lipase 160 (23-300) U/L Procalcitonin 0.50 (<0.5) ng/mL Urine Color Urine Appearance Urine pH (4.5-8.0) Ur Specific Vera (1.000-1.035) Urine Protein (Negative) Urine Glucose (UA) (Negative) g/dL Urine Ketones (NEGATIVE) Urine Occult Blood (Negative) Urine Nitrate (Negative) Urine Bilirubin (NEGATIVE) Urine Urobilinogen (0.2) E.U./dL Ur Leukocyte Esterase (NEGATIVE) Urine RBC (0-5/HPF) Urine WBC (0-5/HPF) Ur Squamous Epith Cells (0-5/HPF) Ur Transition Epith Cell (0-5/HPF) Ur Renal Epithelial Cell (0-1/HPF) Urine Bacteria (None) Ur Culture Indicated? SARS-CoV-2 (PCR) (Negative) 09/05/20 09/05/20 Range/Units 11:30 12:11 WBC (4.5-11.0) X10^3/uL RBC (4.0-5.2) X10^6/uL Hgb (12.0-16.0) g/dL Hct (36-46) % MCV (80-100) fL MCH (26-34) PG MCHC (30-36) % RDW (11.6-14.8) % Plt Count (150-400) X10^3/uL Neut % (Auto) (50-75) % Lymph % (Auto) (25-40) % Gregg % (Auto) (3-14) % Eos % (Auto) (2-4) % Baso % (Auto) (0-2) % Neut # (Auto) (5917-5488) /uL Lymph # (Auto) (3750-9441) /uL Gregg # (Auto) (0-900) /uL Eos # (Auto) (0-450) /uL Baso # (Auto) (0-100) /uL Sodium (137-145) mmol/L Potassium (3.4-5.1) mmol/L Chloride (98-107) mmol/L Carbon Dioxide (22-32) mmol/L BUN (7-17) mg/dL Creatinine (0.52-1.04) mg/dL Estimated GFR (>60) mL/min BUN/Creatinine Ratio (6-22) Glucose (80-110) mg/dL Lactate (0.7-2.1) mmol/L Calcium (8.4-10.2) mg/dL Total Bilirubin (0.2-1.3) mg/dL AST (14-36) IU/L ALT (<35) IU/L Alkaline Phosphatase (38-126) U/L Total Protein (6.3-8.2) g/dL Albumin (3.5-5.0) g/dL Globulin (1.7-4.1) g/dL Albumin/Globulin Ratio (1.0-2.8) Lipase (23-300) U/L Procalcitonin (<0.5) ng/mL Urine Color Yellow Urine Appearance Clear Urine pH 6.0 (4.5-8.0) Ur Specific Vera 1.015 (1.000-1.035) Urine Protein 2+ H (Negative) Urine Glucose (UA) Negative (Negative) g/dL Urine Ketones Negative (NEGATIVE) Urine Occult Blood 3+ H (Negative) Urine Nitrate Positive H (Negative) Urine Bilirubin Negative (NEGATIVE) Urine Urobilinogen 0.2 (0.2) E.U./dL Ur Leukocyte Esterase 2+ H (NEGATIVE) Urine RBC 10-30/hpf H (0-5/HPF) Urine WBC >100/hpf H (0-5/HPF) Ur Squamous Epith Cells 1-5 /hpf (0-5/HPF) Ur Transition Epith Cell 1-5/hpf (0-5/HPF) Ur Renal Epithelial Cell 1-5/hpf H (0-1/HPF) Urine Bacteria Many (>30) H (None) Ur Culture Indicated? Specimen cultured SARS-CoV-2 (PCR) Negative (Negative) Imaging Data Chest x-ray: Radiologist's Impression: PROCEDURE: XR CHEST 1V INDICATIONS: suspected sepsis TECHNIQUE: One view of the chest was acquired. COMPARISON: [facility], CR, XR CHEST 1V, 06/28/2020, 22:43. FINDINGS: Surgical changes and devices: Lower neck region surgical clips. Lungs and pleura: Lungs are clear. No pleural effusions or pneumothorax. Mediastinum: Mediastinal contours appear normal. Question mild cardiomegaly. Bones and chest wall: No suspicious bony lesions. Severe glenohumeral joint degenerative arthritis of the right shoulder. Overlying soft tissues appear unremarkable. IMPRESSION: Question mild cardiomegaly. No evidence acute pulmonary process. Dictated by: Miguel Anders M.D. on 09/05/2020 at 9:41 CT scan - abdomen/pelvis: Radiologist's Impression: PROCEDURE: CT ABDOMEN PELVIS WO CON INDICATIONS: abdomen pain TECHNIQUE: Noncontrast 5 mm thick sections acquired from the diaphragms to the symphysis. 5 mm coronal and sagittal reformats were then performed. For radiation dose reduction, the following was used: automated exposure control, adjustment of mA and/or kV according to patient size. COMPARISON: [facility], CT, CT CHEST ABD PEL WO CON, 06/28/2020, 23:16. FINDINGS: Image quality: Excellent. ABDOMEN: Lung bases: Lung bases are clear. Heart size is normal. Moderate coronary artery calcifications. Trace pericardial effusion. Solid organs: Liver is normal in size. Gallbladder question gallstones versus tumefactive sludge. Pancreas is normal in contours. Spleen is normal in size. No adrenal nodules. Severe bilateral hydronephrosis and hydroureter down to the level of the base of the bladder. The bladder is decompressed by a Aragon catheter. The hydronephrosis and hydroureter does not appear significantly changed. Inflammatory change surrounding the right ureter has developed, possibly representing evidence of ureteritis. Probable exophytic 1 cm hyperdense left cyst. Peritoneum and bowel: Unenhanced bowel loops demonstrate normal wall thickness and caliber. No free fluid or air. Sigmoid diverticulosis without evidence of diverticulitis. Nodes and vessels: No retroperitoneal or mesenteric adenopathy by size criteria. Aorta and inferior vena cava are normal in caliber. Miscellaneous: Periumbilical hernia containing fat. PELVIS: Genitourinary: Bladder wall thickness is normal. Miscellaneous: No inguinal hernias or adenopathy. Bones: No suspicious bony lesions. No vertebral body compression fractures. Extensive lumbar degenerative change. Severe canal stenosis L2-L3. S shaped thoracolumbar curvature. Total left hip arthroplasty. IMPRESSION: 1. Severe bilateral hydronephrosis and hydroureter down to the base of the bladder is not significantly changed. A Aragon catheter decompresses the bladder. 2. Inflammatory change in the fat adjacent to the right ureter may indicate presence of right ureteritis. 3. Sigmoid diverticulosis. 4. Incidental note made of severe canal stenosis at L2-L3. Dictated by: Miguel Anders M.D. on 09/05/2020 at 11:33 ECG Data Interpretation: Atrial fibrillation rate [address] changes similar to previous MDM Narrative Medical decision making narrative: Patient is found to be quite hypotensive with unknown GI catheter associated. Patient does have a history of congestive heart failure so sepsis bolus was not given. Initial 1 L of IV fluid was given which she tolerated well and did improve her blood pressure. She is given Rocephin based on culture and sensitivity from September 01. Creatinine is slightly more elevated above her normal although she does have chronic kidney disease. Baseline creatinine 2.1 today is 2.59. Patient's lactate and procalcitonin are surprisingly within normal limits despite hypotension and known infection. Dr. Joshi in ED to see and evaluate patient. Discharge Plan Departure Patient Disposition: Admitted As Inpatient Clinical Impression: Acute UTI, Sepsis Admit Date/Time: 09/05/20 13:12 Admit Provider: dS Joshi
[2020-09-05] MEDS: SODIUM CHLORIDE 0.9% 1,000 ML 1000 ML IV ×2 (10:53→12:48)
[2020-09-05 10:59] LABS: Add Manual Diff / Slide Review NO; Basophils Absolute Auto 100 /uL (0-100); Basophils Percent Auto 0.5 % (0-2); Eosinophils Absolute Auto 100 /uL (0-450); Hematocrit 36.3 % (36-46); Hemoglobin 11.6 g/dL (12.0-16.0); Lymphocytes Absolute Auto 1100 /uL (1100-4500); Mean Corpuscular Hemoglobin 28.8 PG (26-34); Mean Corpuscular Volume 89.9 fL (80-100); Monocytes Absolute Auto 1800 /uL (0-900); Monocytes Percent Auto 13.7 % (3-14); Neutrophils Absolute Auto 10300 /uL (1500-7000); Neutrophils Percent Auto 76.8 % (50-75); Platelet Count 217 X10^3/uL (150-400); Red Blood Cell Count 4.04 X10^6/uL (4.0-5.2); Red Cell Distribution Width 14.5 % (11.6-14.8); White Blood Cell Count 13.4 X10^3/uL (4.5-11.0)
[2020-09-05 11:08] LABS: Alanine Aminotransferase 41 IU/L (<35); Albumin 3.5 g/dL (3.5-5.0); Alkaline Phosphatase 117 U/L (38-126); Aspartate Aminotransferase 50 IU/L (14-36); BUN Creatinine Ratio 22.4 (6-22); Bilirubin Total 0.3 mg/dL (0.2-1.3); Blood Urea Nitrogen 58 mg/dL (7-17); Carbon Dioxide 20 mmol/L (22-32); Chloride 106 mmol/L (98-107); Estimated Glomerular Filt Rate 17.6 mL/min (>60); Globulin 3.4 g/dL (1.7-4.1); Glucose 75 mg/dL (80-110); HEMOLYSIS < 15 (0-50); Lactate (Lactic Acid) 0.7 mmol/L (0.7-2.1); Lipase 160 U/L (23-300); Potassium 5.2 mmol/L (3.4-5.1); Sodium 137 mmol/L (137-145); Total Protein 6.9 g/dL (6.3-8.2)
[2020-09-05] MEDS: cefTRIAXone 1,000 MG in SODIUM CHLORIDE 0.9% 100 ML 200 ML IV (11:28)
--- NOTE | 2020-09-05 11:48 | PM.HP.1 ---
History of Present Illness History of Present Illness Date Patient Seen: 09/05/20 Time Patient Seen: 11:48 Chief complaint: cath not draining, bloated and in pain Narrative: PT with hx of indwelling catheter under care of Dr. Cho presents to ED with complaint of 1 day of nondraining catheter, bloating and abdominal pain. She has recently had three catheter replacements (should have been just one regular monthly swapout, no problem) with Dr. Cho's office and had to be upsized at last visit on Sunday, hasn't felt right since. Denies fever, appetite has been dismal, fluid intake good, bowels moving ok. Patient History Medical History (Updated 08/05/20 @ 13:34 by Leopoldo Cho MD) Anxiety Calculus of kidney Depression GI bleed Gross hematuria History of recurrent UTI (urinary tract infection) HTN (hypertension) Hypothyroid Nephrolithiasis Noncompliant neurogenic bladder Obstructive uropathy MORGAN on CPAP Peptic ulcer disease Pneumothorax Postmenopausal atrophic vaginitis Ureteral obstruction, left Urinary incontinence, mixed Surgical History H/O gastric bypass H/O mastectomy History of back surgery History of hip replacement History of thyroidectomy Hx of bilateral cataract extraction (2012) Hx of cystoscopy (08/04/19) Nephrostomy status Family & Social History Family History Father Seizures Mother Heart disease Diabetes mellitus Brother No significant medical problems Sister Diabetes mellitus Grandmother Diabetes mellitus Social History: household members spouse Safety & Behavioral: Feels Safe in Current Yes Environment Been Physically Hurt or No Threatened By a Person Tobacco & Substance use: Smoking Status Never smoker alcohol intake never alcohol intake frequency other Substance Use Type does not use Meds Home Medications and Allergies Home Medications Medication Instructions Recorded Confirmed Type aspirin 81 mg chewable tablet 81 mg PO QDAY #0 01/31/16 06/29/20 History citalopram 10 mg tablet 10 mg PO QDAY #0 01/31/16 06/29/20 History gabapentin 300 mg capsule 300 mg PO TID #0 01/31/16 06/29/20 History (Neurontin) levothyroxine 100 mcg tablet 100 mcg PO QAM #0 01/31/16 06/29/20 History metoprolol succinate 50 mg 50 mg PO DAILY 08/04/19 06/29/20 History tablet,extended release 24 hr ospemifene 60 mg tablet (Osphena) 60 mg PO DAILY #90 tab 09/11/19 06/29/20 Rx oxycodone 5 mg tablet 5 mg PO Q6HR PRN #20 tab 06/30/20 Rx tramadol 50 mg tablet 50 mg PO Q12H PRN #20 tab 06/30/20 Rx Allergies Allergy/AdvReac Type Severity Reaction Status Date / Time alcohol Allergy Severe Rash, Verified 09/05/20 10:01 facial swelling amphotericin B AdvReac Severe Jittery, Verified 09/05/20 10:01 [AMPHOTERICIN B] tremors Review of Systems Review of Systems Narrative: all systems reviewed adn negative except as documented in HPI Exam Vital Signs (past 8 hours): - 09/05/20 09:50 Temperature 98.1 F Pulse Rate 70 Respiratory Rate 14 Blood Pressure 100/51 L Pulse Oximetry 96 Oxygen Delivery Method Room Air Narrative Exam Narrative: pleasant obese elderly female lying on gurney Const General: cooperative, comfortable and well developed [facility] Head: normocephalic and atraumatic Eyes General: appearance normal, both eyes and all related structures Resp Other: auscultation normal bilaterally moving air well Cardio Other: normal rate no murmurs GI Other: diffusely tender to palpation all quadrants bowel sounds present Other: navarro in place draining dark yellow urine Skin Other: no suspicious rashes or lesions Psych Other: alert adn oriented x3 interactive normal affect and memory Objective Labs Result Diagrams: 09/05/20 10:47 09/05/20 10:47 Labs: Laboratory Results - last 24 hr 09/05/20 09/05/20 09/05/20 10:47 10:47 10:47 WBC 13.4 H RBC 4.04 Hgb 11.6 L Hct 36.3 MCV 89.9 MCH 28.8 MCHC 32.0 RDW 14.5 Plt Count 217 Neut % (Auto) 76.8 H Lymph % (Auto) 8.0 L [place] % (Auto) 13.7 Eos % (Auto) 1.0 L Baso % (Auto) 0.5 Neut # (Auto) 11691 H Lymph # (Auto) 1100 Gillespie # (Auto) 1800 H Eos # (Auto) 100 Baso # (Auto) 100 Sodium 137 Potassium 5.2 H Chloride 106 Carbon Dioxide 20 L BUN 58 H Creatinine 2.59 H Estimated GFR 17.6 L BUN/Creatinine Ratio 22.4 H Glucose 75 L Lactate 0.7 Calcium 9.0 Total Bilirubin 0.3 AST 50 H ALT 41 H Alkaline Phosphatase 117 Total Protein 6.9 Albumin 3.5 Globulin 3.4 Albumin/Globulin Ratio 1.0 Lipase 160 Procalcitonin 0.50 Assessment & Plan Assessment & Plan narrative: #Acute cystitis, present on admission, active #indwelling catheter UA growing sensitive to rocephin, given in ED, continue, WBCs up with neutrophilia no lactic elevation VSS No signs of sepsis as yet think she got here in time trend labs #Acute kidney injury on chronic kidney disease, believed related to UVJ obstruction from bladder wall thickening, present on admission, active. initial labs find a creatinine of 2.5 from baseline around 1.8. IVF ordered, pt is putting out urine will follow renal function closely on serial chemistries. #Paroxysmal atrial fibrillation, in sinus rhythm with first-degree AV block, stable patient initially with a potassium of 5.2 on initial labs continue IVF, will obtain a magnesium level. continue home regimen of metoprolol succinate 50 mg daily. cardiac telemetry. #Depression/anxiety continue home citalopram prn tramadol #hypothyroid continue home synthroid VTE prophylaxis: SCDs and lovenox IV fluid: Normal saline at 75 cc/hour Diet: Heart healthy Code status: DO NOT RESUSCITATE, patient designates her to be her surrogate decision maker. The patient is admitted to the hospital due to complex urinary tract infection in setting of indwelling catheter. The patient is admitted to the hospital further monitoring evaluation prevent complications adverse events with expected length of stay 2 midnights.
[2020-09-05 12:31] LABS: Appearance Urine UA CLEAR; Bilirubin Urine UA NEGATIVE (NEGATIVE); Color Urine UA YELLOW; Glucose Urine UA NEGATIVE (Negative); Ketones Urine UA NEGATIVE (NEGATIVE); Leukocyte Esterase Urine UA 2+ (NEGATIVE); Nitrite Urine UA POSITIVE (Negative); Occult Blood Urine UA 3+ (Negative); Protein Urine UA 2+ (Negative); Specific Gravity Urine UA 1.015 (1.000-1.035); Urobilinogen Urine UA 0.2 E.U./dL (0.2)
[2020-09-05 12:32] LABS: RBC Urine 10-30/HPF (0-5/HPF); WBC Urine >100/HPF (0-5/HPF)
[2020-09-05 12:33] LABS: Bacteria Urine Many (>30); Culture Indicated Urine Specimen Cultured; Renal Epithelial Cells Urine 1-5/HPF (0-1/HPF); Squamous Epithelial Cell Urine 1-5 /HPF (0-5/HPF); Transitional Epi Cells Urine 1-5/HPF (0-5/HPF)
--- NOTE | 2020-09-05 12:38 | PC.NURSE ---
400 cc from old navarro.
[2020-09-05 12:43] LABS: COVID19 - ADMIT (NP swab/PCR) Negative (Negative)
[2020-09-05] MEDS: ASPIRIN 81 MG CHEW TAB PO (14:04)
[2020-09-05] MEDS: CITALOPRAM 10 MG TABLET PO (14:04)
[2020-09-05] MEDS: SODIUM CHLORIDE 0.9% 1,000 ML 84 ML IV (14:04)
[2020-09-05] MEDS: TRAMADOL 50 MG TABLET PO (14:36)
[2020-09-05] MEDS: GABAPENTIN 300 MG CAPSULE PO (21:01)
--- NOTE | 2020-09-05 21:58 | PC.NURSE ---
Assumed care of patient at 1500. Pt resting in bed during bedside hand-off. A/O denies pain. Aragon draining cloudy urine to gravity. Denies pain. At approx 1600. Pt reports Aragon leaking from urethral meatus. Stephanie-pad placed to help with leakage. No further leaking noted until approx 2030 when pt was sitting in chair and report a gushing sensation. Notable urine on stephanie-pad and chair pad. Stephanie-care and cath care provided. Pt returned to bed. Calling appropriately for needs. IVF infusing per orders. Calf SCD's on. Bed alarm on for safety.
[2020-09-06] VITALS (7 sets, daily range): BP systolic 113–122; BP diastolic 59–76; PULSE 64; RESP 16–18; TEMP 35.9–36.6; O2SAT 92–96
[2020-09-06] MEDS: SODIUM CHLORIDE 0.9% 1,000 ML 84 ML IV (02:17)
[2020-09-06] MEDS: LEVOTHYROXINE 100 MCG TABLET PO (05:25)
[2020-09-06 06:58] LABS: Add Manual Diff / Slide Review NO; Basophils Absolute Auto 0 /uL (0-100); Basophils Percent Auto 0.5 % (0-2); Eosinophils Absolute Auto 300 /uL (0-450); Eosinophils Percent Auto 3.1 % (2-4); Hematocrit 35.2 % (36-46); Hemoglobin 11.4 g/dL (12.0-16.0); Lymphocytes Absolute Auto 1000 /uL (1100-4500); Lymphocytes Percent Auto 11.3 % (25-40); Mean Corpuscular HGB Conc 32.4 % (30-36); Mean Corpuscular Hemoglobin 29.3 PG (26-34); Mean Corpuscular Volume 90.3 fL (80-100); Monocytes Absolute Auto 1300 /uL (0-900); Monocytes Percent Auto 14.1 % (3-14); Neutrophils Absolute Auto 6500 /uL (1500-7000); Platelet Count 219 X10^3/uL (150-400); Red Cell Distribution Width 14.3 % (11.6-14.8); White Blood Cell Count 9.1 X10^3/uL (4.5-11.0)
[2020-09-06 07:15] LABS: BUN Creatinine Ratio 24.1 (6-22); Blood Urea Nitrogen 48 mg/dL (7-17); Carbon Dioxide 19 mmol/L (22-32); Chloride 115 mmol/L (98-107); Estimated Glomerular Filt Rate 23.8 mL/min (>60); Glucose 111 mg/dL (80-110); HEMOLYSIS < 15 (0-50); Sodium 140 mmol/L (137-145)
[2020-09-06 07:18] LABS: Potassium 5.7 mmol/L (3.4-5.1)
[2020-09-06] MEDS: METOPROLOL ER 50 MG TABLET PO (08:46)
[2020-09-06] MEDS: CITALOPRAM 10 MG TABLET PO (08:46)
[2020-09-06] MEDS: ASPIRIN 81 MG CHEW TAB PO (08:46)
[2020-09-06] MEDS: ENOXAPARIN 30 MG/0.3 ML SYRINGE SUBCUT (08:54)
--- NOTE | 2020-09-06 10:03 | P.PN_ITS ---
Subjective Subjective Date Patient Seen: 09/06/20 Time Patient Seen: 09:20 Interval history: CC: this darn bag Ms. Bynum spent an uneventful night and was walking with PT this morning. she ate well and was able to move her bowels. She is concerned about going home today as the ferry to [place] out. has been arranging home health options. Exam Vital Signs (past 8 hours): - 09/06/20 05:25 09/06/20 05:46 09/06/20 07:30 Temperature 97.9 F Pulse Rate 64 64 Respiratory Rate 16 18 Blood Pressure 113/59 L Pulse Oximetry 92 94 94 09/06/20 08:46 09/06/20 09:00 Temperature 96.8 F L Pulse Rate 64 Respiratory Rate 18 Blood Pressure 120/76 120/76 Pulse Oximetry 96 Oxygen Delivery Method Room Air Oxygen Flow Rate 0 Narrative Exam Narrative: cheerful obese elder lady sitting up in bed reading tome Const General: cooperative, healthy appearing and comfortable HEN[facility] Head: normocephalic and atraumatic Eyes General: appearance normal, both eyes and all related structures Resp Effort & Inspection: normal respiratory effort and able to speak in complete sentences Auscultation: clear to auscultation bilaterally Cardio Rate: regular rate Rhythm: regular rhythm Heart Sounds: S1 normal and S2 normal GI Inspection: normal to inspection and large pannus Palpation: soft and No guarding Auscultation: normal bowel sounds Back/Spine/Pelvis Other: no CVA tenderness Psych Other: alert oriented x3 conversant and interactive affect and mood wnl Objective Labs Result Diagrams: 09/06/20 06:30 09/06/20 06:30 Labs: Laboratory Results - last 24 hr 09/05/20 09/05/20 09/05/20 10:47 10:47 10:47 WBC 13.4 H RBC 4.04 Hgb 11.6 L Hct 36.3 MCV 89.9 MCH 28.8 MCHC 32.0 RDW 14.5 Plt Count 217 Neut % (Auto) 76.8 H Lymph % (Auto) 8.0 L [place] % (Auto) 13.7 Eos % (Auto) 1.0 L Baso % (Auto) 0.5 Neut # (Auto) 13435 H Lymph # (Auto) 1100 [place] # (Auto) 1800 H Eos # (Auto) 100 Baso # (Auto) 100 Sodium 137 Potassium 5.2 H Chloride 106 Carbon Dioxide 20 L BUN 58 H Creatinine 2.59 H Estimated GFR 17.6 L BUN/Creatinine Ratio 22.4 H Glucose 75 L Lactate 0.7 Calcium 9.0 Magnesium Total Bilirubin 0.3 AST 50 H ALT 41 H Alkaline Phosphatase 117 Total Protein 6.9 Albumin 3.5 Globulin 3.4 Albumin/Globulin Ratio 1.0 Lipase 160 Procalcitonin 0.50 Urine Color Urine Appearance Urine pH Ur Specific [place] Urine Protein Urine Glucose (UA) Urine Ketones Urine Occult Blood Urine Nitrate Urine Bilirubin Urine Urobilinogen Ur Leukocyte Esterase Urine RBC Urine WBC Ur Squamous Epith Cells Ur Transition Epith Cell Ur Renal Epithelial Cell Urine Bacteria Ur Culture Indicated? SARS-CoV-2 (PCR) 09/05/20 09/05/20 09/06/20 11:30 12:11 06:30 WBC 9.1 RBC 3.90 L Hgb 11.4 L Hct 35.2 L MCV 90.3 MCH 29.3 MCHC 32.4 RDW 14.3 Plt Count 219 Neut % (Auto) 71.0 Lymph % (Auto) 11.3 L [place] % (Auto) 14.1 H Eos % (Auto) 3.1 Baso % (Auto) 0.5 Neut # (Auto) 6500 Lymph # (Auto) 1000 L [place] # (Auto) 1300 H Eos # (Auto) 300 Baso # (Auto) 0 Sodium Potassium Chloride Carbon Dioxide BUN Creatinine Estimated GFR BUN/Creatinine Ratio Glucose Lactate Calcium Magnesium Total Bilirubin AST ALT Alkaline Phosphatase Total Protein Albumin Globulin Albumin/Globulin Ratio Lipase Procalcitonin Urine Color Yellow Urine Appearance Clear Urine pH 6.0 Ur Specific [place] 1.015 Urine Protein 2+ H Urine Glucose (UA) Negative Urine Ketones Negative Urine Occult Blood 3+ H Urine Nitrate Positive H Urine Bilirubin Negative Urine Urobilinogen 0.2 Ur Leukocyte Esterase 2+ H Urine RBC 10-30/hpf H Urine WBC >100/hpf H Ur Squamous Epith Cells 1-5 /hpf Ur Transition Epith Cell 1-5/hpf Ur Renal Epithelial Cell 1-5/hpf H Urine Bacteria Many (>30) H Ur Culture Indicated? Specimen cultured SARS-CoV-2 (PCR) Negative 09/06/20 09/06/20 06:30 06:30 WBC RBC Hgb Hct MCV MCH MCHC RDW Plt Count Neut % (Auto) Lymph % (Auto) [place] % (Auto) Eos % (Auto) Baso % (Auto) Neut # (Auto) Lymph # (Auto) [place] # (Auto) Eos # (Auto) Baso # (Auto) Sodium 140 Potassium 5.7 H Chloride 115 H Carbon Dioxide 19 L BUN 48 H Creatinine 1.99 H Estimated GFR 23.8 L BUN/Creatinine Ratio 24.1 H Glucose 111 H Lactate Calcium 9.0 Magnesium 2.0 Total Bilirubin AST ALT Alkaline Phosphatase Total Protein Albumin Globulin Albumin/Globulin Ratio Lipase Procalcitonin Urine Color Urine Appearance Urine pH Ur Specific [place] Urine Protein Urine Glucose (UA) Urine Ketones Urine Occult Blood Urine Nitrate Urine Bilirubin Urine Urobilinogen Ur Leukocyte Esterase Urine RBC Urine WBC Ur Squamous Epith Cells Ur Transition Epith Cell Ur Renal Epithelial Cell Urine Bacteria Ur Culture Indicated? SARS-CoV-2 (PCR) PFSH Medical History (Updated 09/05/20 @ 14:33 by Marina Monsivais DO) Anxiety Calculus of kidney Depression GI bleed Gross hematuria History of recurrent UTI (urinary tract infection) HTN (hypertension) Hypothyroid Nephrolithiasis Noncompliant neurogenic bladder Obstructive uropathy MORGAN on CPAP Peptic ulcer disease Pneumothorax Postmenopausal atrophic vaginitis Ureteral obstruction, left Urinary incontinence, mixed Surgical History H/O gastric bypass H/O mastectomy History of back surgery History of hip replacement History of thyroidectomy Hx of bilateral cataract extraction (2012) Hx of cystoscopy (08/04/19) Nephrostomy status Family History Father Seizures Mother Heart disease Diabetes mellitus Brother No significant medical problems Sister Diabetes mellitus Grandmother Diabetes mellitus Social History household members: spouse Smoking Status: Never smoker alcohol intake: never eating out: rarely or never Type(s) of exercise: none Assessment & Plan Assessment & Plan narrative: #Acute cystitis, present on admission, active #indwelling catheter #CAUTI present on admission UA growing sensitive to rocephin, given in ED, continue for second dose today, WBCs up with neutrophilia no lactic elevation VSS No signs of sepsis as yet think she got here in time trend labs #Acute kidney injury on preexisting chronic kidney disease stage 4, 2/2 UTI, present on admission, active. Cr improving, continue IVF, switching to 1/2NS #hyperchloremia mild as above switching to 1/2NS #Paroxysmal atrial fibrillation, in sinus rhythm with first-degree AV block, stable continue home regimen of metoprolol succinate 50 mg daily. cardiac telemetry. #hyperkalemia K from 5.2 to 5.7, pt not on supplementation does report eating a lot of bananas also pt is on beta bassam pt denies prior hx of this issue ordering recheck avoid supplementation if still high may need insulin or kayexalate #NIDDM fingersticks ACHS mod SSI continue home glipizide #Depression/anxiety continue home citalopram prn tramadol #hypothyroid continue home synthroid VTE prophylaxis: SCDs and lovenox IV fluid: Normal saline at 75 cc/hour Diet: Heart healthy Code status: DO NOT RESUSCITATE, patient designates her to be her surrogate decision maker. dispo: home with HH eventually, discharge planning in progress The patient is admitted to the hospital due to complex urinary tract infection in setting of indwelling catheter. The patient is admitted to the hospital further monitoring evaluation prevent complications adverse events with expected length of stay 2 midnights.
--- NOTE | 2020-09-06 10:18 | PT.IIE ---
Current Diagnoses Acute cystitis without hematuria (09/05/20) Medical History (Last Updated 08/05/20 @ 13:34 by Leopoldo Cho MD) Anxiety Calculus of kidney Depression GI bleed Gross hematuria History of recurrent UTI (urinary tract infection) HTN (hypertension) Hypothyroid Nephrolithiasis Noncompliant neurogenic bladder Obstructive uropathy MORGAN on CPAP Peptic ulcer disease Pneumothorax Postmenopausal atrophic vaginitis Ureteral obstruction, left Urinary incontinence, mixed Physical Therapy Inpatient Evaluation/Re-Eval M1 PT/OT-IP Prior Functional Status Start: 09/06/20 08:42 Freq: NEEDED Status: Active Protocol: Document 09/06/20 09:55 LRN (Rec: 09/06/20 10:17 LRN [id number]) Medical Review Prior Functional Status Medical History Reviewed Yes Mobility and Gait Independent gait with 4WW. Limited to primarily gait inside home. Activities of Daily Living and IADL's Independent Social History Household Members spouse Living Arrangements House Number of Floors (Floors) One Floor Number of Stairs To Enter/Railing? 4 Home Equipment Four Wheel Walker M2 PT-IP Current Condition Start: 09/06/20 08:42 Freq: NEEDED Status: Active Protocol: Document 09/06/20 09:55 LRN (Rec: 09/06/20 10:17 LRN [id number]) Physical Therapy Current Condition Current Condition Evaluation Date 09/06/20 Treatment Diagnosis Acute: cystitis, kidney injury on chronic kidney disease, Paroxysmal A-Fib Precautions Other Precautions Severe canal stenosis: L2-L3. Weight Bearing Status Weight Bearing Status Full Weight Bearing M3 PT-IP Subjective Start: 09/06/20 08:42 Freq: NEEDED Status: Active Protocol: Document 09/06/20 09:55 LRN (Rec: 09/06/20 10:17 LRN [id number]) Subjective Physical Therapy Visit Type Type Initial Evaluation Visit Start Time 09:20 Visit Stop Time 09:44 Total Visit Minutes 25 Physical Therapy Visit Comments Patient Comments Pt feel she is baseline in function. Patient Goals Pt goal is to go home. Therapy Pain Assessment Pain When Pain Assessed At Rest Location Lower Back Intensity 6 Scale Used Numeric (0 - 10) pelvis/bladder Intensity 6 Scale Used Numeric (0 - 10) M4 PT-IP Mobility and Gait Start: 09/06/20 08:42 Freq: NEEDED Status: Active Protocol: Document 09/06/20 09:55 LRN (Rec: 09/06/20 10:17 LRN [id number]) PT-Bed Mobility Assessment Sit to Supine Sit to Supine Independent PT-Transfer Assessment Sit to and From Stand Sit to and from Stand Independent Equipment Transfer Assistive Device 4 Wheeled Walker Transfers Transfer Destination Bed Transfer Technique After walking Transfer Ability Level of Assist Independent Gait Assessment Gait Gait Assistance Required: Standby Assistance Distance (Feet) 16 Able to Maintain Weight Bearing Status Yes During Gait Assistive Devices Assistive Device 4 Wheeled Walker Orthotic/Prosthetic Devices or Brace: No Gait Deviations General Gait Pattern Flexed Trunk,Lateral Trunk Lean,Wide Based Gait Factors Limiting Gait Function Factors Limiting Gait Function Decreased Activity Tolerance Comments Gait Comments Unable to assess pulse immediately after gait due to equipement malfunction. SpO2 to start (in standing) was 94% , after gait and sit rest 99%. PT-Balance Assessment Sitting Balance and Reactions Static Sitting Balance Ability Normal Dynamic Sitting Balance Ability Normal Standing Balance and Reactions Static Standing Balance Ability Normal Dynamic Standing Balance Ability Normal Device Used 4WW M5 PT-IP Objective Assessments Start: 09/06/20 08:42 Freq: NEEDED Status: Active Protocol: Document 09/06/20 09:55 LRN (Rec: 09/06/20 10:17 LRN [id number]) Orientation Orientation/Cognition Level of Alertness Alert Orientation Name,Age,Place,Situation Language Function Ability No Deficits Noted Safety Awareness Understands Safety Issues Memory Description No Deficits Noted Gross Range of Motion Upper Extremity ROM Assessment Within Functional Limits Lower Extremity ROM Assessment Within Functional Limits Strength Upper Extremity Strength Assessment Within Functional Limits Lower Extremity Strength Assessment Within Functional Limits M6 PT-IP Treatment Start: 09/06/20 08:42 Freq: NEEDED Status: Active Protocol: Document 09/06/20 09:55 LRN (Rec: 09/06/20 10:17 LRN [id number]) Physical Therapy Treatment Education Education Provided Safety M7 PT-IP Assessment and Plan Start: 09/06/20 08:42 Freq: NEEDED Status: Active Protocol: Document 09/06/20 09:55 LRN (Rec: 09/06/20 10:17 LRN [id number]) PT Summary Assessment and Plan Potential Rehabilitation Potential Excellent Status of Condition at Evaluation Stable Summary Impairments Pain,Gait,Activity Tolerance Goals Gait Goal Independent,Front Wheel Walker Gait Distance 150' with standing rests as needed. Other Goals 4 steps with bilateral railing independently. Days to Meet Goals 2 Frequency of Treatment Frequency Of Treatment Twice a Day Treatment Plan Physical Therapy Treatment Plan Bed Mobility Training,Transfer Training,Gait Training, Therapeutic Exercise Other Recommendations and Next Treatment Assess in/out of bed, 5TSTS, Focus improve tolerance to activity, stair training when pt able to tolerate. Recommendations To Nursing Amount of Assist Needed Independent,Standby Assistance Discharge Recommendations PT Discharge Recommendations Home Other Discharge Recommendations Spouse to assist as needed. Transportation Needs at Discharge Private Vehicle
[2020-09-06] MEDS: SODIUM CHLORIDE 0.45% 1,000 ML 84 ML IV (10:29)
[2020-09-06] MEDS: cefTRIAXone 1,000 MG in SODIUM CHLORIDE 0.9% 100 ML 200 ML IV (10:43)
--- NOTE | 2020-09-06 11:16 | P.DS_ITS ---
History of Present Illness History of Present Illness Date Patient Seen: 09/06/20 Time Patient Seen: 11:16 Chief complaint: cath not draining, bloated and in pain Narrative: PT with hx of indwelling catheter under care of Dr. Cho presents to ED with complaint of 1 day of nondraining catheter, bloating and abdominal pain. She has recently had three catheter replacements (should have been just one regular monthly swapout, no problem) with Dr. Cho's office and had to be upsized at last visit on Sunday, hasn't felt right since. Denies fever, appetite has been dismal, fluid intake good, bowels moving ok. Discharge Providers Provider Date of admission: 09/05/20 13:12 Discharge Date: 09/06/20 Primary care physician: Sd Joshi MD Consults: 09/05/20 11:47 Consult to Physical Therapy Evaluate & Treat Comment: Physician Instructions: Evaluate and Treat 09/05/20 13:35 Consult to Dietitian, Adult Routine Comment: Reason For Exam: admission mini mental exam protocol Discharge provider: Sd Jsohi MD Summary Hospital Course Discharge Diagnosis: catheter associated UTI Hospital Course: Ms Bynum did well with rocephin and received 2 doses. Urine culture did not grow anything specific so we will proceed with cefdinir on discharge. She was working well with PT this morning and her electrolytic derangements were normalizing. She will dc home with HH and f/u with PCP to consider next urological steps. Status at Discharge Overall status at discharge: patient is progressing back to baseline Exam Vital Signs (past 8 hours): - 09/06/20 05:25 09/06/20 05:46 09/06/20 07:30 Temperature 97.9 F Pulse Rate 64 64 Respiratory Rate 16 18 Blood Pressure 113/59 L Pulse Oximetry 92 94 94 09/06/20 08:46 09/06/20 09:00 Temperature 96.8 F L Pulse Rate 64 Respiratory Rate 18 Blood Pressure 120/76 120/76 Pulse Oximetry 96 Oxygen Delivery Method Room Air Oxygen Flow Rate 0 Narrative Exam Narrative: pleasant obese elder eating snack Const General: cooperative, healthy appearing and comfortable HENKS Head: normocephalic and atraumatic Eyes General: appearance normal, both eyes and all related structures Resp Effort & Inspection: normal respiratory effort, able to speak in complete sentences and normal respiratory pattern Cardio Other: regular rate and rhythm, S1/S2 appreciated GI Other: soft nontender nondistended no CVA tenderness Other: navarro in place draining yellow urine Skin Other: no concerning lesions or rashes Neuro General: CN's II-XI intact bilaterally and deep tendon reflexes 2+ bilaterally Psych Other: alert oriented x3 normal affect and mood Objective Labs Result Diagrams: 09/06/20 06:30 09/06/20 06:30 Labs: Laboratory Results - last 24 hr 09/05/20 09/05/20 09/05/20 10:47 11:30 12:11 WBC RBC Hgb Hct MCV MCH MCHC RDW Plt Count Neut % (Auto) Lymph % (Auto) Armstrong % (Auto) Eos % (Auto) Baso % (Auto) Neut # (Auto) Lymph # (Auto) Armstrong # (Auto) Eos # (Auto) Baso # (Auto) Sodium Potassium Chloride Carbon Dioxide BUN Creatinine Estimated GFR BUN/Creatinine Ratio Glucose Calcium Magnesium Procalcitonin 0.50 Urine Color Yellow Urine Appearance Clear Urine pH 6.0 Ur Specific [place] 1.015 Urine Protein 2+ H Urine Glucose (UA) Negative Urine Ketones Negative Urine Occult Blood 3+ H Urine Nitrate Positive H Urine Bilirubin Negative Urine Urobilinogen 0.2 Ur Leukocyte Esterase 2+ H Urine RBC 10-30/hpf H Urine WBC >100/hpf H Ur Squamous Epith Cells 1-5 /hpf Ur Transition Epith Cell 1-5/hpf Ur Renal Epithelial Cell 1-5/hpf H Urine Bacteria Many (>30) H Ur Culture Indicated? Specimen cultured SARS-CoV-2 (PCR) Negative 09/06/20 09/06/20 09/06/20 06:30 06:30 06:30 WBC 9.1 RBC 3.90 L Hgb 11.4 L Hct 35.2 L MCV 90.3 MCH 29.3 MCHC 32.4 RDW 14.3 Plt Count 219 Neut % (Auto) 71.0 Lymph % (Auto) 11.3 L Armstrong % (Auto) 14.1 H Eos % (Auto) 3.1 Baso % (Auto) 0.5 Neut # (Auto) 6500 Lymph # (Auto) 1000 L Armstrong # (Auto) 1300 H Eos # (Auto) 300 Baso # (Auto) 0 Sodium 140 Potassium 5.7 H Chloride 115 H Carbon Dioxide 19 L BUN 48 H Creatinine 1.99 H Estimated GFR 23.8 L BUN/Creatinine Ratio 24.1 H Glucose 111 H Calcium 9.0 Magnesium 2.0 Procalcitonin Urine Color Urine Appearance Urine pH Ur Specific [place] Urine Protein Urine Glucose (UA) Urine Ketones Urine Occult Blood Urine Nitrate Urine Bilirubin Urine Urobilinogen Ur Leukocyte Esterase Urine RBC Urine WBC Ur Squamous Epith Cells Ur Transition Epith Cell Ur Renal Epithelial Cell Urine Bacteria Ur Culture Indicated? SARS-CoV-2 (PCR) PFSH Medical History (Updated 09/05/20 @ 14:33 by Marina Monsivais DO) Anxiety Calculus of kidney Depression GI bleed Gross hematuria History of recurrent UTI (urinary tract infection) HTN (hypertension) Hypothyroid Nephrolithiasis Noncompliant neurogenic bladder Obstructive uropathy MORGAN on CPAP Peptic ulcer disease Pneumothorax Postmenopausal atrophic vaginitis Ureteral obstruction, left Urinary incontinence, mixed Surgical History H/O gastric bypass H/O mastectomy History of back surgery History of hip replacement History of thyroidectomy Hx of bilateral cataract extraction (2012) Hx of cystoscopy (08/04/19) Nephrostomy status Family History Father Seizures Mother Heart disease Diabetes mellitus Brother No significant medical problems Sister Diabetes mellitus Grandmother Diabetes mellitus Social History household members: spouse Smoking Status: Never smoker alcohol intake: never eating out: rarely or never Type(s) of exercise: none Discharge Assessment & Plan Assessment and Plan Plan of Treatment: #Acute cystitis, present on admission, active #indwelling catheter #CAUTI present on admission Received two doses rocephin IV as inpt, culture nonspecific, recent hx of marganelli infxn, will need 3 days of cefdinir on dc. #Acute kidney injury on preexisting chronic kidney disease stage 4, 2/2 UTI, present on admission, active. Cr improving back to baseline with IVF #Paroxysmal atrial fibrillation, in sinus rhythm with first-degree AV block, stable continue home regimen of metoprolol succinate 50 mg daily. cardiac telemetry no issues overnight. #hyperkalemia K from 5.2 to 5.7, pt not on supplementation does report eating a lot of bananas also pt is on beta bassam pt denies prior hx of this issue ordering recheck asymptomatic ok to f/u [facility] PCP #NIDDM continue home glipizide #Depression/anxiety continue home citalopram prn tramadol #hypothyroid continue home synthroid VTE prophylaxis: SCDs and lovenox Diet: Heart healthy. diabetic Code status: DO NOT RESUSCITATE, patient designates her to be her surrogate decision maker. dispo: home with HH The patient is admitted to the hospital due to complex urinary tract infection in setting of indwelling catheter. The patient is admitted to the hospital further monitoring evaluation prevent complications adverse events with expected length of stay 2 midnights. Discharge Plan Discharge Plan Patient Disposition: Home Health Service Discharge orders & Medications Prescriptions: New cefdinir 300 mg capsule 300 mg PO BID 3 Days Qty: 6 RF: 0 tramadol 50 mg tablet 50 mg PO Q6H PRN (Reason: pain) Qty: 10 RF: 0 Continued citalopram 10 MG tablet 10 mg PO QDAY Qty: 0 RF: 0 levothyroxine 100 MCG tablet 100 mcg PO QAM Qty: 0 RF: 0 aspirin 81 MG tablet,chewable 81 mg PO QDAY Qty: 0 RF: 0 gabapentin [Neurontin] 300 MG capsule 300 mg PO TID Qty: 0 RF: 0 metoprolol succinate 50 mg tablet extended release 24 hr 50 mg PO DAILY RF: 0 triamcinolone acetonide 0.1 % cream 1 applic TOPICAL PRN PRN (Reason: rash) RF: 0 nitrofurantoin monohyd/m-cryst 100 mg capsule 100 mg PO DAILY RF: 0 glipizide 10 mg Tablet 10 mg PO DAILY RF: 0 Osphena 60 mg tablet 60 mg PO DAILY Qty: 90 RF: 3 Follow up/Referrals: Sd Joshi MD [Primary Care Provider] - Diet/Activity/Treatments Diet: Diet as Tolerated Catheter comment: retain indwelling Skin/Wound/Dressing Care Report to your healthcare provider any signs of infection, such as:: chills, fever, increased pain and unusual drainage Visit Report/Discharge Packet Instructions: DI for Urinary Tract Infection (UTI), How to Care for Your Navarro Catheter -- Female, Cefdinir, DI for Acute Kidney Injury Discharge Data Primary Care Provider: Sd Joshi
--- NOTE | 2020-09-06 11:55 | CM.DANOTE ---
DCP/Assessment: Reviewed chart. Patient is a 85yr old female admitted to [facility] with abd pain. PCP is Dr. Joshi. Primary payor is 1)Medicare 2)[facility]. Met with patient this AM explained CM/SW role. Patient alert and oriented sitting in recliner at time of visit. Patient reports that she resides on [facility] with her spouse/Melquiades. Patient with history of indwelling catheter under care of Dr. Cho. Patient reports that she does have fpc insurance and that her daughter/Camila is assisting her with finding out what they will cover. Patient hopes to get someone to do housekeeping, meals etc. 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 Patient reports that she has had increased struggle with ADL's. Patient reports that currently she is homebound. Provider agreeable to home health and F2F or order obtained. Placed call to [facility] and they were not working therefore, they requested information be faxed. [facility] only agency that services [facility]. P: Home today. [facility] notified and referral sent. No additional needs identified. BIANCA Dunbar Discharge Planning/Care Management Advanced directive, confirm from FAMILY Start: 09/05/20 13:36 Freq: Q24H Status: Active Protocol: Document 09/05/20 15:44 GMP (Rec: 09/05/20 17:03 GMP [id number]) Advance Directive, confirm on record Time 15:30 Person contacted pt Copy received No CM Discharge Assessment Start: 09/06/20 11:48 Freq: Status: Active Protocol: Document 09/06/20 11:48 KJS (Rec: 09/06/20 11:54 KJS [id number]) Discharge Planning Assessment Assigned Inset Cutter BIANCA Dunbar Contact Information Melquiades Bynum (spouse) ph# [phone] Advance Directives? Yes Advance Directives on File Yes History Provided By Patient,Medical Record Prior Living Arrangements House Household Members spouse Type of transporation used prior to Drives own vehicle admit Independent with ADL's Yes Is patient alert and oriented? Yes Needs Assistance With Home Chores / Shopping Caregiver for Another No DME Already Rented / Owned FWW / Walker Comment uses 4WW: one for inside the house. another is more portable and goes easily in the car pt states. Patient/Family Preference Home with Home Health Barriers to Discharge No Discharge Plan Home Transportation Arrangement Family to provide transport Referrals Initiated Home Health SNF/HH Preference [facility] (they are only agency that services [facility]). Whiteboard Updated in Patient Room with Yes name and ext. # of Inset Cutter Review Status In Process Next Review Type Continued Stay Review
[2020-09-06 12:52] LABS: HEMOLYSIS < 15 (0-50)
--- NOTE | 2020-09-06 14:36 | PC.NURSE ---
Discharge instructions and home care handouts reviewed with patient, she states understanding and has no further questions or concerns at this time. IV dc'd intact. Aragon in place and draining. Patient states she will product picker prescriptions today, and will ensure follow up with Dr. Joshi. Patient escorted out with all belongings via wheelchair to home with her .
--- NOTE | 2020-09-09 12:22 | CM.DPNOTE ---
Late entry: Arelis from [facility] called at 1218 on 09/09/20 to let us know they accepted. Pt. Ann Marie Botello CM Asst.
== END 2020-09-06 14:45 | disposition home or self-care (01) | DRG 699 ==
LOC: ED 12:41 → AC 13:13
PROVIDERS: Admitting Provider Family Medicine; Emergency Provider Emergency Medicine; PCP Family Medicine; Referring Provider Emergency Medicine; Visit Provider Family Medicine
DX: T83.511A Infection and inflammatory reaction due to indwelling urethral catheter, initial encounter (principal); N30.00 Acute cystitis without hematuria; N13.0 Hydronephrosis with ureteropelvic junction obstruction; N17.9 Acute kidney failure, unspecified; N18.4 Chronic kidney disease, stage 4 (severe); I12.9 Hypertensive chronic kidney disease with stage 1 through stage 4 chronic kidney disease, or unspecified chronic kidney disease; F41.9 Anxiety disorder, unspecified; F32.9 Major depressive disorder, single episode, unspecified; E03.9 Hypothyroidism, unspecified; I48.0 Paroxysmal atrial fibrillation; Z66 Do not resuscitate; Z20.822 Contact with and (suspected) exposure to COVID-19
CPT/HCPCS: 36415; 51702; 71045; 74176; 80048; 80053; 81001; 82962; 83605; 83690; 83735; 84132; 84145; 85025; 87040; 87086; 87635; 93005; 94760; 96361; 96365; 97161; 99285; C9803; J0696; J1650; J1815; J7050

== ENCOUNTER 2020-09-13 16:58 | Emergency (ER) | payer MEDICARE, OTHER, SELFPAY ==
[2020-09-05 13:24] VITALS: BMI 42.8
[2020-09-13 17:00] VITALS: BP 113/53; PULSE 62; RESP 18; TEMP 36.8; O2SAT 97
== END 2020-09-13 19:15 | disposition left against medical advice (07) ==
PROVIDERS: Emergency Provider Emergency Medicine; PCP Family Medicine
CPT/HCPCS: 99281

== ENCOUNTER → 2020-09-14 15:54 | Outpatient (CLI) | payer MEDICARE, OTHER, SELFPAY ==
[2020-09-05 13:24] VITALS: BMI 42.8
[2020-09-14 17:48] LABS: Appearance Urine UA CLOUDY; Bilirubin Urine UA NEGATIVE (NEGATIVE); Color Urine UA YELLOW; Glucose Urine UA NEGATIVE (Negative); Ketones Urine UA NEGATIVE (NEGATIVE); Leukocyte Esterase Urine UA 3+ (NEGATIVE); Nitrite Urine UA NEGATIVE (Negative); Occult Blood Urine UA 3+ (Negative); Protein Urine UA 2+ (Negative); Urobilinogen Urine UA 0.2 E.U./dL (0.2)
[2020-09-14 18:18] LABS: Bacteria Urine Moderate (10-30); RBC Urine 5-10/HPF (0-5/HPF); Squamous Epithelial Cell Urine 0-1 /HPF (0-5/HPF); WBC Urine 5-10/HPF (0-5/HPF)
[2020-09-14 18:19] LABS: Culture Indicated Urine Specimen Cultured
== END ==
PROVIDERS: PCP Family Medicine; Referring Provider Specialist; Visit Provider Specialist
DX: R30.0 Dysuria (principal)
CPT/HCPCS: 81001; 87077; 87086; 87186

== ENCOUNTER 2020-09-25 21:53 | Observation (INO) | payer MEDICARE, OTHER, SELFPAY ==
[2020-09-05 13:24] VITALS: BMI 42.8
[2020-09-25] VITALS (10 sets, daily range): BP systolic 95–152; BP diastolic 54–83; PULSE 66–75; RESP 17–27; TEMP 36.6; O2SAT 95–97; BMI 42.8
[2020-09-25 23:06] LABS: Add Manual Diff / Slide Review NO; Basophils Absolute Auto 100 /uL (0-100); Basophils Percent Auto 0.5 % (0-2); Eosinophils Absolute Auto 200 /uL (0-450); Eosinophils Percent Auto 1.3 % (2-4); Hematocrit 36.5 % (36-46); Hemoglobin 11.7 g/dL (12.0-16.0); Lymphocytes Absolute Auto 1200 /uL (1100-4500); Lymphocytes Percent Auto 8.6 % (25-40); Mean Corpuscular HGB Conc 32.2 % (30-36); Mean Corpuscular Hemoglobin 28.7 PG (26-34); Mean Corpuscular Volume 89.1 fL (80-100); Monocytes Absolute Auto 2400 /uL (0-900); Monocytes Percent Auto 17.4 % (3-14); Neutrophils Absolute Auto 9900 /uL (1500-7000); Neutrophils Percent Auto 72.2 % (50-75); Platelet Count 245 X10^3/uL (150-400); Red Blood Cell Count 4.09 X10^6/uL (4.0-5.2); Red Cell Distribution Width 14.8 % (11.6-14.8); White Blood Cell Count 13.7 X10^3/uL (4.5-11.0)
[2020-09-25 23:18] LABS: Alanine Aminotransferase 52 IU/L (<35); Albumin 3.8 g/dL (3.5-5.0); Alkaline Phosphatase 118 U/L (38-126); Aspartate Aminotransferase 77 IU/L (14-36); BUN Creatinine Ratio 18.9 (6-22); Bilirubin Total 0.3 mg/dL (0.2-1.3); Blood Urea Nitrogen 60 mg/dL (7-17); Calcium 9.2 mg/dL (8.4-10.2); Carbon Dioxide 20 mmol/L (22-32); Chloride 106 mmol/L (98-107); Estimated Glomerular Filt Rate 13.9 mL/min (>60); Globulin 3.7 g/dL (1.7-4.1); HEMOLYSIS 24 (0-50); Lipase 170 U/L (23-300); Magnesium 2.1 mg/dL (1.6-2.3); Phosphorous 4.8 mg/dL (2.8-4.1); Potassium 4.6 mmol/L (3.4-5.1); Sodium 136 mmol/L (137-145); Total Protein 7.5 g/dL (6.3-8.2)
[2020-09-25 23:29] LABS: Glucose 41 mg/dL (80-110)
--- NOTE | 2020-09-25 23:43 | ED.GENADULT ---
HPI - General Adult General Chief complaint: Diabetic Problem Stated complaint: Hypoglycemia Time Seen by Provider: 09/25/20 21:58 Source: patient and EMS Mode of arrival: EMS Limitations: no limitations History of Present Illness HPI narrative: Patient is an 85-year-old female. Is a [id number] diabetic who is brought in by the emergency department for hypoglycemia. His reported by the patient and her that for the past couple days she has been very fatigued and lightheaded did not felt very well. This evening they were waiting in their car eating a pizza waiting to get on the [place] when states that the patient became gradually more tired than actually slumped over in the car. When EMS was called they found her blood sugar to be low. She was given D50 and this did seem to improve her symptoms. By the time she arrived at the emergency department her blood sugar was back to 70. She was alert oriented x3. states that she was back to her baseline self. She states that she did not take any extra doses of her medications today. She has been eating and drinking like normal. She did spend time with family today. Related Data Home Medications Medication Instructions Recorded Confirmed aspirin 81 mg chewable tablet 81 mg PO QDAY #0 01/31/16 09/05/20 citalopram 10 mg tablet 10 mg PO QDAY #0 01/31/16 09/05/20 gabapentin 300 mg capsule 300 mg PO TID #0 01/31/16 09/05/20 (Neurontin) levothyroxine 100 mcg tablet 100 mcg PO QAM #0 01/31/16 09/05/20 metoprolol succinate 50 mg 50 mg PO DAILY 08/04/19 09/05/20 tablet,extended release 24 hr glipizide 10 mg tablet 10 mg PO DAILY 09/05/20 09/05/20 nitrofurantoin 100 mg PO DAILY 09/05/20 09/05/20 monohydrate/macrocrystals 100 mg capsule triamcinolone acetonide 0.1 % 1 applic TOPICAL PRN PRN 09/05/20 09/05/20 topical cream Previous Rx's Medication Instructions Recorded ospemifene 60 mg tablet (Osphena) 60 mg PO DAILY #90 tab 09/11/19 tramadol 50 mg tablet 50 mg PO Q6H PRN #10 tab 09/06/20 fluconazole 100 mg tablet 100 mg PO BID 7 Days #14 tab 09/20/20 (Diflucan) Allergies Allergy/AdvReac Type Severity Reaction Status Date / Time alcohol Allergy Severe Rash, Verified 09/05/20 10:01 facial swelling amphotericin B AdvReac Severe Jittery, Verified 09/05/20 10:01 [AMPHOTERICIN B] tremors Review of Systems Constitutional Constitutional: Denies fever(s) Cardiovascular Comments: Denies chest pain Respiratory Comments: Denies shortness of breath Gastrointestinal Comments: Denies abdominal pain nausea vomiting Genitourinary Comments: Denies any urinary symptoms Musculoskeletal Comments: Denies any specific extremity complaints Integumentary/Breasts Comments: No rashes Neurologic Neurologic: Reports as per HPI Psychiatric Psychiatric: Reports system reviewed and no additional complaints, except as documented Endocrine Endocrine: Reports system reviewed and no additional complaints, except as documented Hematologic/Lymphatic On Anticoagulants: No Allergic/Immunologic Allergic/Immunologic: Reports system reviewed and no additional complaints, except as documented Patient History Medical History Anxiety Calculus of kidney Depression GI bleed Gross hematuria History of recurrent UTI (urinary tract infection) HTN (hypertension) Hypothyroid Nephrolithiasis Noncompliant neurogenic bladder Obstructive uropathy MORGAN on CPAP Peptic ulcer disease Pneumothorax Postmenopausal atrophic vaginitis Ureteral obstruction, left Urinary incontinence, mixed Surgical History H/O gastric bypass H/O mastectomy History of back surgery History of hip replacement History of thyroidectomy Hx of bilateral cataract extraction (2012) Hx of cystoscopy (08/04/19) Nephrostomy status Family History Father Seizures Mother Heart disease Diabetes mellitus Brother No significant medical problems Sister Diabetes mellitus Grandmother Diabetes mellitus Social History household members: spouse Smoking Status: Never smoker alcohol intake: never eating out: rarely or never Type(s) of exercise: none Smoking Status: Never smoker alcohol intake frequency: other Substance Use Type: does not use Exam Initial Vital Signs Initial Vital Signs: Vital Signs Temperature 97.8 F 09/25/20 21:50 Pulse Rate 69 09/25/20 21:50 Respiratory Rate 17 09/25/20 21:50 Blood Pressure 95/54 L 09/25/20 21:50 Pulse Oximetry 95 09/25/20 21:50 Const General: cooperative, healthy appearing, comfortable, well developed and well groomed [facility] Head: normal to inspection and normocephalic Eyes General: appearance normal, both eyes and all related structures Neck Neck: normal visual inspection Chest Chest: normal inspection of the chest Resp Effort & Inspection: normal respiratory effort Auscultation: clear to auscultation bilaterally Cardio Rate: regular rate Rhythm: regular rhythm GI Inspection: normal to inspection Palpation: soft Skin General: no rashes or lesions noted Neuro General: patient alert, patient awake, patient oriented x3 and moves all extremities Extrem General: normal to inspection and capillary refill normal Psych Appearance: grossly normal and well kempt Scores GCS Owen coma scale eye opening: Spontaneous Owen coma scale verbal response: Orientated Wilson coma scale motor response: Obey commands Owen coma scale total score: 15 Course Orders Ordered: ED Orders 09/25/20 23:00 Complete Blood Count AUTO DIFF Stat Comprehensive Metabolic Panel Stat Lipase Stat Magnesium Stat Phosphorous Stat 09/26/20 02:45 COVID19 - ADMIT (CANE WEIGHER swab/PCR) Stat Acetaminophen (Acetaminophen 325 Mg Tablet) 650 mg PO Q6HR PRN PRN Reason: Fever/Mild Pain (1-3) Calcium Carbonate (Calcium Carbonate 500 Mg Tab) 1,000 mg PO Q4HR PRN PRN Reason: Dyspepsia Gabapentin (Gabapentin 300 Mg Capsule) 300 mg PO TID [facility] Dextrose (D10w) 1,000 mls @ 100 mls/hr IV CONT [facility] Last Admin: 09/26/20 02:20 Dose: 100 mls/hr Documented by: HGUBERN Sodium Chloride (Normal Saline 0.45%) 1,000 mls @ 75 mls/hr IV CONT [facility] Levothyroxine Sodium (Levothyroxine 100 Mcg Tablet) 100 mcg PO QACBREAK [facility] Magnesium Hydroxide (Magnesium Hydroxide 30 Ml Udc) 30 ml PO DAILY PRN PRN Reason: Constipation Metoprolol Succinate (Metoprolol Er 50 Mg Tablet) 50 mg PO DAILY [facility] Naloxone HCl (Naloxone 0.4 Mg/Ml Vial) 0.2 mg IV Q2MIN PRN PRN Reason: Opiate Reversal Nitrofurantoin Macrocrystals (Nitrofurantoin Er 100 Mg Capsule) 100 mg PO DAILY [facility] Non-Formulary Medication (Ospemifene [Osphena]) 60 mg PO DAILY [facility] Ondansetron HCl (Ondansetron 4 Mg/2 Ml Inj) 4 mg IV Q8HR PRN PRN Reason: Nausea And Vomiting Tramadol HCl (Tramadol 50 Mg Tablet) 50 mg PO Q6H PRN PRN Reason: pain Triamcinolone Acetonide (Triamcinolone 0.1% Cream) 1 applic TOP PRN PRN PRN Reason: rash Discontinued Medications Dextrose (Dextrose 50 % In Water 25 Gm/50 Ml Syringe) 25 gm IV NOW ONE Stop: 09/26/20 02:11 Last Admin: 09/26/20 02:20 Dose: 25 gm Documented by: JOHNNY Vital Signs Vital signs: Vital Signs - 8 hr 09/25/20 21:50 09/25/20 22:17 09/25/20 22:18 Temperature 97.8 F Pulse Rate 69 68 69 Respiratory Rate 17 Blood Pressure 95/54 L Pulse Oximetry 95 96 96 09/25/20 22:23 09/25/20 22:24 09/25/20 22:30 Temperature Pulse Rate 66 74 68 Respiratory Rate Blood Pressure 95/54 L 97/55 L Pulse Oximetry 96 97 96 09/25/20 23:00 09/25/20 23:01 09/25/20 23:30 Temperature Pulse Rate 73 74 72 Respiratory Rate 27 H 23 27 H Blood Pressure 152/60 H Pulse Oximetry 09/25/20 23:31 09/26/20 00:00 09/26/20 00:30 Temperature Pulse Rate 75 71 69 Respiratory Rate 21 23 19 Blood Pressure 131/83 115/56 L 117/54 L Pulse Oximetry 09/26/20 01:00 09/26/20 01:30 09/26/20 02:00 Temperature Pulse Rate 72 70 72 Respiratory Rate 18 19 17 Blood Pressure 101/50 L 114/57 L 119/55 L Pulse Oximetry 09/26/20 02:30 Temperature Pulse Rate 62 Respiratory Rate 21 Blood Pressure 123/58 L Pulse Oximetry Medical Decision Making Lab Data Lab results reviewed: Yes I reviewed the patient's lab results. Result diagrams: 09/25/20 23:00 09/25/20 23:00 Labs: Lab Results 09/25/20 09/25/20 09/25/20 Range/Units 23:00 23:00 23:00 WBC 13.7 H (4.5-11.0) X10^3/uL RBC 4.09 (4.0-5.2) X10^6/uL Hgb 11.7 L (12.0-16.0) g/dL Hct 36.5 (36-46) % MCV 89.1 (80-100) fL MCH 28.7 (26-34) PG MCHC 32.2 (30-36) % RDW 14.8 (11.6-14.8) % Plt Count 245 (150-400) X10^3/uL Neut % (Auto) 72.2 (50-75) % Lymph % (Auto) 8.6 L (25-40) % Emmet % (Auto) 17.4 H (3-14) % Eos % (Auto) 1.3 L (2-4) % Baso % (Auto) 0.5 (0-2) % Neut # (Auto) 9900 H (2126-0101) /uL Lymph # (Auto) 1200 (2019-5880) /uL Emmet # (Auto) 2400 H (0-900) /uL Eos # (Auto) 200 (0-450) /uL Baso # (Auto) 100 (0-100) /uL Sodium 136 L (137-145) mmol/L Potassium 4.6 (3.4-5.1) mmol/L Chloride 106 (98-107) mmol/L Carbon Dioxide 20 L (22-32) mmol/L BUN 60 H (7-17) mg/dL Creatinine 3.17 H (0.52-1.04) mg/dL Estimated GFR 13.9 L (>60) mL/min BUN/Creatinine Ratio 18.9 (6-22) Glucose 41 L* (80-110) mg/dL Calcium 9.2 (8.4-10.2) mg/dL Phosphorus 4.8 H (2.8-4.1) mg/dL Magnesium 2.1 (1.6-2.3) mg/dL Total Bilirubin 0.3 (0.2-1.3) mg/dL AST 77 H (14-36) IU/L ALT 52 H (<35) IU/L Alkaline Phosphatase 118 (38-126) U/L Total Protein 7.5 (6.3-8.2) g/dL Albumin 3.8 (3.5-5.0) g/dL Globulin 3.7 (1.7-4.1) g/dL Albumin/Globulin Ratio 1.0 (1.0-2.8) Lipase 170 (23-300) U/L Point of Care Testing Glucose POC 52 Point of care testing: Point of Care Testing Glucose POC 52 MDM Narrative Medical decision making narrative: Patient was alert oriented x3. Since being here in the emergency department she has never lost consciousness. Blood sugar initially was in the 70s but then this decreased. She was given food to eat and this improved her blood sugar back into the 70s again. She was observed for a period of time with multiple checks of her blood glucose level and it gradually decreased until it was down to 50. This shows despite her eating. She was started on D10. Given the lack of the ability to maintain her blood sugars she does require admission to the hospital. Unsure the exact cause of this. She does have a slight worsening in her kidney function today and this may be affecting her clearance of her diabetes medication. Did discuss the case with Dr. Pappas who is on-call for the patient's primary provider who will admit for further evaluation and treatment. Discharge Plan Departure Patient Disposition: Admitted As Inpatient Clinical Impression: Hypoglycemia, Acute kidney injury Admit Date/Time: 09/26/20 02:42 Admit Provider: Sarahy Pappas
[2020-09-26] VITALS (13 sets, daily range): BP systolic 97–136; BP diastolic 44–75; PULSE 53–105; RESP 17–23; TEMP 35.9–36.6; O2SAT 96–98; BMI 43.3
[2020-09-26] MEDS: DEXTROSE 10 % IN WATER 1,000 ML 100 ML IV (02:20)
[2020-09-26] MEDS: DEXTROSE 50 % IN WATER 25 GM/50 ML SYRINGE IV (02:20)
[2020-09-26 03:40] LABS: COVID19 - ADMIT (NP swab/PCR) Negative (Negative)
--- NOTE | 2020-09-26 04:07 | P.HP_ITS ---
History of Present Illness History of Present Illness Date Patient Seen: 09/26/20 Time Patient Seen: 04:07 Chief complaint: Feeling unwell Narrative: [address] Joshi's admitted for hypoglycemia. She is a pjc-itcgevi-zxziukqjk diabetic who was brought in by the emergency services for hypoglycemia. She and her had spent the day in [place] visiting with family, including 4 great grandbabies, and were late getting home. She had had some diarrhea earlier that day and so they took their camper van to [place] which has a toilet. She was so tired when they got to [place], that the babies were brought into the van to lie with her in bed. Upon returning to [place], and while waiting in line at the [facility], she started to feel poorly. Her had picked up some pizza to take home for dinner and they had that while waiting in line at the [facility]. Apparently, some friends came by to visit while waiting to get across and she felt so poorly, she could barely follow the conversation and just wanted them to go away. She became gradually more tired and by the time they got home, she just melted to the ground and her called EMS. Blood sugar was checked and found to be low, she was given D50 and that improved her symptoms. Upon presentation to the emergency department, she was back to her baseline but her blood sugar had plummeted back to 41. Vital signs included a temperature of 97.8, pulse 69, respirations 17, blood pressure 97/54, and O2 saturation 95% on room air. She was given D5 25 g IV x1 and blood sugar did rebound but then fell again into the 70s. After a snack, blood sugar was rechecked and was down again into the 50s. She was recently diagnosed with diabetes and started on metformin on 01/21/2020. On 06/21/2020, metformin was changed to glipizide 10 mg p.o. q.day due to diarrhea and lethargy from the metformin. She has had no known episodes of hypoglycemia to date on glipizide. Since arriving to the floor, her hourly blood sugars have been stable, 69, 112, and 135 and she is feeling better, just tired. Denies chest pain or shortness of breath. Afebrile. Was able to tolerate a regular diet this morning with no nausea or vomiting. Patient has also an indwelling catheter that has been plagued with problems since placement for obstructive uropathy and hydronephrosis. The catheter did resolve the urinary retention issue but she has had problems with it not fitting her well and recently had UTIs on 06/29/20 and 09/05/20 that required inpatient hospitalization. Urine cultures during this period have grown morganella morganii (09/01/20) and diamond parapsilosis/Pseudomonas aeruginosa (09/14/20) both sensitive to ciprofloxacin. At her last inpatient stay, she was treated with ceftriaxone, urine culture from that stay showed no growth. Dr. Cho then started her on a 7 day course of Diflucan after her 09/14/20 culture showed the above and she has only taken a 3ish days of that. She was also started on an antibiotic, but cannot remember the name. Urinalysis today again shows urinary tract infection, culture has been sent. She denies abdominal pain, flank pain, CVA tenderness, or fever. Also significant to this hospital stay includes an unprovoked epistaxis that self resolved this morning at approximately 11:00 a.m. During her 06/29/2020 inpatient stay, she developed a severe epistaxis en route to the emergency room with no prior history and no history of treatment with anticoagulation other than aspirin 81 mg daily. She did require oxymetazoline, silver nitrate, and topical TXA in the ED to stop the bleed. Right septal nasal polyp noted. Med ical history significant for peptic ulcer disease with GI bleed. This is her third inpatient hospitalization in 3 months. Past medical history: Diabetes mellitus type 2, non insulin dependent Hyperlipidemia Hypothyroidism Thyroid nodule Paroxysmal atrial fibrillation First-degree AV block Hypertension Morbid obesity Obstructive sleep apnea, on CPAP Detrusor instability Overflow incontinence Nephrolithiasis Chronic urinary tract infections Indwelling catheter Atrophic vaginitis Peptic ulcer disease with GI bleed Right-sided septal nasal polyp with epistaxis Degenerative joint disease Anxiety/ depression Past surgical history: Hip replacement, 2004 Lumbar disc surgery x 2 Lithotripsy, 10/22 Cystoscopy with Botox, 05/23 Gastric bypass Mastectomy Thyroidectomy Bilateral cataracts Nephrostomy Family history: Mother: Heart disease, hypertension, diabetes mellitus type 2 Father: Epilepsy Siblings: Diabetes mellitus type 2 Social history: to [employer], retired. Sixteen years of education. Raised family in the [facility], moved to [facility] in [place]. Patient History Medical History Anxiety Calculus of kidney Depression GI bleed Gross hematuria History of recurrent UTI (urinary tract infection) HTN (hypertension) Hypothyroid Nephrolithiasis Noncompliant neurogenic bladder Obstructive uropathy MORGAN on CPAP Peptic ulcer disease Pneumothorax Postmenopausal atrophic vaginitis Ureteral obstruction, left Urinary incontinence, mixed Surgical History H/O gastric bypass H/O mastectomy History of back surgery History of hip replacement History of thyroidectomy Hx of bilateral cataract extraction (2012) Hx of cystoscopy (08/04/19) Nephrostomy status Family & Social History Family History Father Seizures Mother Heart disease Diabetes mellitus Brother No significant medical problems Sister Diabetes mellitus Grandmother Diabetes mellitus Social History: household members spouse Prior Living Arrangements House Safety & Behavioral: Feels Safe in Current Yes Environment Been Physically Hurt or No Threatened By a Person Suicidal Ideation Description None Suicide Plan Description No Plan Tobacco & Substance use: Smoking Status Never smoker alcohol intake never alcohol intake frequency other Substance Use Type does not use Meds Home Medications and Allergies Home Medications Medication Instructions Recorded Confirmed Type aspirin 81 mg chewable tablet 81 mg PO QDAY #0 01/31/16 09/26/20 History citalopram 10 mg tablet 10 mg PO QDAY #0 01/31/16 09/26/20 History gabapentin 300 mg capsule 300 mg PO TID #0 01/31/16 09/26/20 History (Neurontin) levothyroxine 100 mcg tablet 100 mcg PO QAM #0 01/31/16 09/26/20 History metoprolol succinate 50 mg 50 mg PO DAILY 08/04/19 09/26/20 History tablet,extended release 24 hr ospemifene 60 mg tablet (Osphena) 60 mg PO DAILY #90 tab 09/11/19 09/26/20 Rx glipizide 10 mg tablet 10 mg PO DAILY 09/05/20 09/26/20 History nitrofurantoin 100 mg PO DAILY 09/05/20 09/26/20 History monohydrate/macrocrystals 100 mg capsule triamcinolone acetonide 0.1 % 1 applic TOPICAL PRN PRN 09/05/20 09/26/20 History topical cream tramadol 50 mg tablet 50 mg PO Q6H PRN #10 tab 09/06/20 09/26/20 Rx fluconazole 100 mg tablet 100 mg PO BID 7 Days #14 tab 09/20/20 09/26/20 Rx (Diflucan) Allergies Allergy/AdvReac Type Severity Reaction Status Date / Time alcohol Allergy Severe Rash, Verified 09/05/20 10:01 facial swelling amphotericin B AdvReac Severe Jittery, Verified 09/05/20 10:01 [AMPHOTERICIN B] tremors Review of Systems Review of Systems Narrative: Ten point review systems completed and found to be noncontributory except for items mentioned in HPI. Exam Vital Signs (past 8 hours): - 09/25/20 21:50 09/25/20 22:17 09/25/20 22:18 Temperature 97.8 F Pulse Rate 69 68 69 Respiratory Rate 17 Blood Pressure 95/54 L Pulse Oximetry 95 96 96 09/25/20 22:23 09/25/20 22:24 09/25/20 22:30 Temperature Pulse Rate 66 74 68 Respiratory Rate Blood Pressure 95/54 L 97/55 L Pulse Oximetry 96 97 96 09/25/20 23:00 09/25/20 23:01 09/25/20 23:30 Temperature Pulse Rate 73 74 72 Respiratory Rate 27 H 23 27 H Blood Pressure 152/60 H Pulse Oximetry 09/25/20 23:31 09/26/20 00:00 09/26/20 00:30 Temperature Pulse Rate 75 71 69 Respiratory Rate 21 23 19 Blood Pressure 131/83 115/56 L 117/54 L Pulse Oximetry 09/26/20 01:00 09/26/20 01:30 09/26/20 02:00 Temperature Pulse Rate 72 70 72 Respiratory Rate 18 19 17 Blood Pressure 101/50 L 114/57 L 119/55 L Pulse Oximetry 09/26/20 02:30 09/26/20 03:50 Temperature 97.8 F Pulse Rate 62 74 Respiratory Rate 21 18 Blood Pressure 123/58 L 136/75 Pulse Oximetry 97 Oxygen Delivery Method Room Air Narrative Exam Narrative: GENERAL: Alert and oriented, appearing stated age and in no acute distress. HEENT: Head normocephalic/atraumatic. LUNGS: Clear to ausculation bilaterally, no wheezes, rhonchi or rales. CV: Normal S1 and S2 with regular rate and rhythm, no audible murmurs, rubs or gallops. ABDOMEN: Soft, non-tender, non-distended, no organomegaly. Positive bowel sounds. No CVA tenderness. : Navarro in place. EXTREMITIES: No clubbing, cyanosis, or edema. NEURO: Cranial nerves II through XII grossly intact, no focal deficits. PSYCH: Alert and oriented x 3. SKIN: No concerning lesions. Sub pannicular fold smells of yeast without rash. Objective Labs Result Diagrams: 09/26/20 05:02 09/26/20 05:02 Labs: Laboratory Results - last 24 hr 09/25/20 09/25/20 09/25/20 23:00 23:00 23:00 WBC 13.7 H RBC 4.09 Hgb 11.7 L Hct 36.5 MCV 89.1 MCH 28.7 MCHC 32.2 RDW 14.8 Plt Count 245 Neut % (Auto) 72.2 Lymph % (Auto) 8.6 L Mcculloch % (Auto) 17.4 H Eos % (Auto) 1.3 L Baso % (Auto) 0.5 Neut # (Auto) 9900 H Lymph # (Auto) 1200 Mcculloch # (Auto) 2400 H Eos # (Auto) 200 Baso # (Auto) 100 Sodium 136 L Potassium 4.6 Chloride 106 Carbon Dioxide 20 L BUN 60 H Creatinine 3.17 H Estimated GFR 13.9 L BUN/Creatinine Ratio 18.9 Glucose 41 L* Calcium 9.2 Phosphorus 4.8 H Magnesium 2.1 Total Bilirubin 0.3 AST 77 H ALT 52 H Alkaline Phosphatase 118 Total Protein 7.5 Albumin 3.8 Globulin 3.7 Albumin/Globulin Ratio 1.0 Lipase 170 SARS-CoV-2 (PCR) 09/26/20 02:45 WBC RBC Hgb Hct MCV MCH MCHC RDW Plt Count Neut % (Auto) Lymph % (Auto) Mcculloch % (Auto) Eos % (Auto) Baso % (Auto) Neut # (Auto) Lymph # (Auto) Mcculloch # (Auto) Eos # (Auto) Baso # (Auto) Sodium Potassium Chloride Carbon Dioxide BUN Creatinine Estimated GFR BUN/Creatinine Ratio Glucose Calcium Phosphorus Magnesium Total Bilirubin AST ALT Alkaline Phosphatase Total Protein Albumin Globulin Albumin/Globulin Ratio Lipase SARS-CoV-2 (PCR) Negative Assessment & Plan Assessment & Plan narrative: 85 year old female with 1 day history of hypoglycemia in setting of new glipizide use and fairly recent diagnosis of NIDDM; recurrent UTIs, and three inpatient hospitalizations in 3 months. 1. Hypoglycemia, Likely secondary to glipizide. Plan: Glipizide has been discontinued. Allowing patient to eat regular diet today and watching blood sugars closely. Glucose is trending up; D10 IV has been stopped. Will continue to trend labs and watch closely. Will transition Accu- Cheks from every 1 hour to every 4 hours at this point. Transition to alternative oral diabetic medication prior to discharge. 2. Urinary tract infection, acute on chronic Plan: Urine culture has been sent. Assuming that patient still has the diamond parapsilosis/Pseudomonas aeruginosa cultured on 09/14/[address] Cho as she has only just begun her outpatient treatment; will treat with ciprofloxacin and Diflucan. Patient's elderly has been changing her navarro and this is not likely being done under sterile technique. Discussed need for residential per home health or urology RN for monthly catheter changes to reduce contamination and prevent polymicrobial multidrug resistance. Discussed that this can be arranged prior to discharge. 3. Acute on chronic kidney disease, stage 4, likely exacerbated by acute dehydration from diarrhea and travel Plan: Gently rehydrating with IVF. Encouraging oral intake as well. Will trend labs. BNP is markedly elevated, which is difficult to interpret in the setting of her stage 4 chronic kidney disease. Clinically, she does not have peripheral edema or pulmonary crackles. She is not dyspneic. Weight has been stable over the last 3 admissions. However, she does have atrial fibrillation and is at risk for HF; no echo on chart; will update to guide therapy. Will turn off IVF overnight to reduce fluid overload. So far, urine is light yellow and she in a negative fluid balance. Will continue to follow daily weights and I/Os. 4. Diarrhea, acute Plan: She has had multiple courses of antibiotics due to chronic urinary tract infections in the last 3 months, risk for Clostridium difficile or other type of infectious diarrhea. Will perform stool studies with next stool. 5. Epistaxis, acute Plan: Was able to get control with positioning and nasal pressure this morning. Risk for much more serious bleeding as patient required 3 agents to achieve hemostasis with last epistaxis on 06/29/20. Will repeat oxymetazoline, silver nitrate, and TXA topical if needed. Advised avoidance of vigorous nose blowing and straining. Would benefit from outpatient ENT consult for evaluation of nasal polyp. Holding aspirin. 6. Obstructive uropathy, overflow incontinence,and detrusor instability with indwelling Navarro catheter Plan: Continue routine navarro managment. Drs. Cho and Carissa consulting in the outpatient setting. Will need close follow-up with Dr. Cho as her navarro has not been fitting her well and has leakage. 7. Elevated liver enzymes and hyperphosphatemia, acute Plan: Likely secondary to acute on chronic kidney disease, will treat underlying disease and trend labs. 8. Dibetes mellitus type 2 Plan: Please see #1. 9. Hematuria, chronic Plan: Patient does have history of kidney stones but does not have any clinical signs of flank pain. Suspect hematuria on today's urinalysis is due to infection rather than nephrolithiasis. May benefit from KUB tomorrow if unclear. 10. Paroxysmal atrial fibrillation with first-degree AV block, chronic Plan: Continue rate control with metoprolol 50 mg p.o. q.day. Holding aspirin secondary to epistaxis. Telemetry. Will trend magnesium. 11. Hypertension, chronic Plan: Metoprolol was held this morning due to hypotension. Rehydrating today and will trend vital signs and labs. Will continue to hold if BP <120/80. Please see #10. 12. Hyperlipidemia, chronic Plan: Continue home atorvastatin 40 mg PO qhs. 13. Hypothyroidism, chronic Plan: Continue home levothyroxine 100 mcg p.o. q.a.m. Will update TSH. 14. MORGAN, chronic Plan: Continue home CPAP. 15. Morbid obesity, chronic Plan: Patient is at risk for delayed and poor healing secondary to weight. Nutrition consult during this inpatient admission. 16. Chronic pain syndrome Plan: Continue home tramadol and gabapentin. 17. Atrophic vaginitis Plan: Continue home ospemifene. 18. Depression/anxiety Plan: Continue home citalopram. Code: DNR / DNI DVT prophylaxis: SCDs, further anticoagulation contraindicated secondary to epistaxis and history of GI bleed COVID: Negative Disposition: Anticipate 2 nights. Greater than 93 minutes was spent in physician prolonged services from 14:46 to 16:19. This included evaluating the status of the patient, communicating with the patient, reviewing the chart, and directing the team attending the patient.
[2020-09-26 04:50] LABS: Bilirubin Urine UA NEGATIVE (NEGATIVE); Color Urine UA YELLOW; Glucose Urine UA NEGATIVE (Negative); Ketones Urine UA NEGATIVE (NEGATIVE); Leukocyte Esterase Urine UA 2+ (NEGATIVE); Nitrite Urine UA NEGATIVE (Negative); Occult Blood Urine UA 3+ (Negative); Protein Urine UA 2+ (Negative); Urobilinogen Urine UA 0.2 E.U./dL (0.2)
[2020-09-26 04:51] LABS: Appearance Urine UA CLOUDY; Bacteria Urine Many (>30); RBC Urine 1-5/HPF (0-5/HPF); Squamous Epithelial Cell Urine 1-5 /HPF (0-5/HPF); WBC Urine >100/HPF (0-5/HPF)
[2020-09-26 04:53] LABS: Culture Indicated Urine Specimen Cultured
[2020-09-26] MEDS: SODIUM CHLORIDE 0.45% 1,000 ML 75 ML IV (05:35)
[2020-09-26 06:12] LABS: Add Manual Diff / Slide Review NO; Basophils Absolute Auto 100 /uL (0-100); Basophils Percent Auto 0.5 % (0-2); Eosinophils Absolute Auto 200 /uL (0-450); Eosinophils Percent Auto 1.6 % (2-4); Hematocrit 33.3 % (36-46); Hemoglobin 10.9 g/dL (12.0-16.0); Lymphocytes Absolute Auto 1500 /uL (1100-4500); Lymphocytes Percent Auto 14.2 % (25-40); Mean Corpuscular HGB Conc 32.7 % (30-36); Mean Corpuscular Hemoglobin 28.9 PG (26-34); Mean Corpuscular Volume 88.4 fL (80-100); Monocytes Absolute Auto 1800 /uL (0-900); Monocytes Percent Auto 17.5 % (3-14); Neutrophils Absolute Auto 7000 /uL (1500-7000); Neutrophils Percent Auto 66.2 % (50-75); Platelet Count 218 X10^3/uL (150-400); Red Blood Cell Count 3.77 X10^6/uL (4.0-5.2); Red Cell Distribution Width 14.9 % (11.6-14.8); White Blood Cell Count 10.6 X10^3/uL (4.5-11.0)
[2020-09-26 06:24] LABS: Alanine Aminotransferase 52 IU/L (<35); Albumin 3.2 g/dL (3.5-5.0); Albumin Globulin Ratio 0.9 (1.0-2.8); Alkaline Phosphatase 109 U/L (38-126); Aspartate Aminotransferase 68 IU/L (14-36); BUN Creatinine Ratio 20.4 (6-22); Bilirubin Total 0.2 mg/dL (0.2-1.3); Blood Urea Nitrogen 62 mg/dL (7-17); Calcium 8.9 mg/dL (8.4-10.2); Carbon Dioxide 19 mmol/L (22-32); Chloride 106 mmol/L (98-107); Estimated Glomerular Filt Rate 14.6 mL/min (>60); Globulin 3.4 g/dL (1.7-4.1); Glucose 157 mg/dL (80-110); HEMOLYSIS < 15 (0-50); Magnesium 2.1 mg/dL (1.6-2.3); Potassium 4.5 mmol/L (3.4-5.1); Sodium 134 mmol/L (137-145); Total Protein 6.6 g/dL (6.3-8.2)
--- NOTE | 2020-09-26 06:26 | PC.NURSE ---
Patients catheter was leaking on admission. Dr. Pappas was notified at 0530 and verbal orders were given to remove the old catheter and replace it with a new one. Patients catheter was removed at 0555 and a new one was placed at 0605. The patient tolerated it well and is resting in bed with the call light within reach and no other requests at this time.
--- NOTE | 2020-09-26 06:28 | PC.ADMIT ---
[id number] Admission Note: Patient arrived from the ED via bed at 0310. Patient was A/O with no report or pain. Patient had a urinary catheter present on admission that was leaking, provider will be notified. Call light is within reach and patient was oriented to room. The patient,Latonia Bynum,85 y/o, was given written information regarding hospital policies, unit procedures and contact persons. Patient's smoking status: Never smoker. Vital Signs - 8 hr 09/25/20 22:30 09/25/20 23:00 09/25/20 23:01 Temperature Pulse Rate 68 73 74 Respiratory Rate 27 H 23 Blood Pressure 97/55 L 152/60 H Pulse Oximetry 96 09/25/20 23:30 09/25/20 23:31 09/26/20 00:00 Temperature Pulse Rate 72 75 71 Respiratory Rate 27 H 21 23 Blood Pressure 131/83 115/56 L Pulse Oximetry 09/26/20 00:30 09/26/20 01:00 09/26/20 01:30 Temperature Pulse Rate 69 72 70 Respiratory Rate 19 18 19 Blood Pressure 117/54 L 101/50 L 114/57 L Pulse Oximetry 09/26/20 02:00 09/26/20 02:30 09/26/20 03:50 Temperature 97.8 F Pulse Rate 72 62 74 Respiratory Rate 17 21 18 Blood Pressure 119/55 L 123/58 L 136/75 Pulse Oximetry 97
[2020-09-26 06:31] LABS: NT-proBNP (BNP-Adult 18+) 6010 pg/mL (<450)
[2020-09-26] MEDS: LEVOTHYROXINE 100 MCG TABLET PO (07:01)
[2020-09-26] MEDS: GABAPENTIN 300 MG CAPSULE PO ×3 (08:52→20:33)
[2020-09-26] MEDS: SODIUM CHLORIDE 0.9% 1,000 ML 100 ML IV (08:52)
[2020-09-26] MEDS: FLUCONAZOLE 100 MG TABLET PO ×2 (08:52→20:34)
[2020-09-26] MEDS: CIPROFLOXACIN 400 MG/200 ML PIGGYBACK 200 MG IV (08:54)
[2020-09-26] MEDS: FUROSEMIDE 40 MG/4 ML VIAL IV (08:58)
--- NOTE | 2020-09-26 09:38 | CM.DANOTE ---
Discharge Planning/Care Management DCP: assessment: case received, EMR reviewed and met with pt. Introduced self and role. Pt is an 85 year old female who admitted early this morning [address] Pappas. PCP: Dr. Joshi Payer: Medicare and [facility] Urologist: Dr. Anderson: pt has indwelling navarro catheter that was placed in June and that dr. Adnerson continues to recommend. Pt is current with [facility] and alerted her that pt is in the hospital. OT was set to see pt Sunday, this appt will be cancelled and reset when pt is back home. Will fax clinical info later today when available. P: likely home with resumption of [facility] and spouse support. DCP team will be following. Advanced directive, confirm from FAMILY Start: 09/26/20 03:42 Freq: Q24H Status: Active Protocol: Document 09/26/20 04:00 JK (Rec: 09/26/20 04:41 JK [id number]) Advance Directive, confirm on record Time 03:25 Person contacted Patient Copy received Yes Advanced directive available on record Yes CM Discharge Assessment Start: 09/26/20 09:35 Freq: Status: Active Protocol: Document 09/26/20 09:36 ITV (Rec: 09/26/20 09:38 ITV [id number]) Discharge Planning Assessment Advance Directives? Yes Advance Directives on File Yes History Provided By Patient,Medical Record Has Patient been admitted in last 30 Yes days? Comment early this month /4-09/06 Prior Living Arrangements House Household Members spouse Comment lives on [facility] with spouse Is patient alert and oriented? Yes Community Services used prior to Home Health Nurse admission: Comment is current with [facility] Already Rented / Owned FWW / Walker Comment uses 4[employer]: one for inside the house. another is more portable and goes easily in the car pt states. a third one for outside the house. Patient/Family Preference Home with Home Health Transportation Arrangement Family to provide transport Review Status In Process
--- NOTE | 2020-09-26 11:44 | PT.IIE ---
Medical History (Last Reviewed 09/26/20 @ 05:37 by Rosales Veronica DO) Anxiety Calculus of kidney Depression GI bleed Gross hematuria History of recurrent UTI (urinary tract infection) HTN (hypertension) Hypothyroid Nephrolithiasis Noncompliant neurogenic bladder Obstructive uropathy MORGAN on CPAP Peptic ulcer disease Pneumothorax Postmenopausal atrophic vaginitis Ureteral obstruction, left Urinary incontinence, mixed Physical Therapy Inpatient Evaluation/Re-Eval M1 PT/OT-IP Prior Functional Status Start: 09/26/20 10:22 Freq: NEEDED Status: Active Protocol: Document 09/26/20 11:44 AW (Rec: 09/26/20 12:31 AW [id number]) Medical Review Prior Functional Status Medical History Reviewed Yes Communication WNL Mobility and Gait Modified independent with 4WW for household and limited community mobility. Activities of Daily Living and IADL's Pt states she is independent or SBA with ADL's. Prior Functional Level (Other details) Pt has indwelling navarro catheter. She has been admitted to the hospital three times since June. She is currently active with [facility] OT and PT. Social History Household Members spouse Living Arrangements House Number of Floors (Floors) One Floor Number of Stairs To Enter/Railing? 5 SOHAIL with narrow B rails. Home Environment High Toilet,Walk in Shower Home Equipment Four Wheel Walker,Straight Cane,Shower Seat without Backrest,Cupola Mechanic,Grab Bars Near Toilet,Grab Bars In Shower Employment Status Retired Additional Social History Comment Pt states she has an adjustable bed at home. 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 She lives with her spouse, Bill, on [facility] [address]. M2 PT-IP Current Condition Start: 09/26/20 10:22 Freq: NEEDED Status: Active Protocol: Document 09/26/20 11:44 AW (Rec: 09/26/20 12:31 AW [id number]) Physical Therapy Current Condition Current Condition Evaluation Date 09/26/20 Treatment Diagnosis hypoglycemia, CAYETANO, generalized weakness Onset Date 09/25/20 Precautions Other Precautions indwelling navarro catheter M3 PT-IP Subjective Start: 09/26/20 10:22 Freq: NEEDED Status: Active Protocol: Document 09/26/20 11:44 AW (Rec: 09/26/20 12:31 AW [id number]) Subjective Physical Therapy Visit Type Type Initial Evaluation Visit Start Time 11:15 Visit Stop Time 11:44 Total Visit Minutes 29 Physical Therapy Visit Comments Patient Comments Pt is willing to participate with PT Patient Goals Return home with spouse support and continued HH services. Therapy Pain Assessment Pain When Pain Assessed During Mobility Pain Present Pain Present Pain Reported Location Bilateral Leg Scale Used not quantified Description Cramping Pain Management Techniques Modification of Treatment,Re- positioning M4 PT-IP Mobility and Gait Start: 09/26/20 10:22 Freq: NEEDED Status: Active Protocol: Document 09/26/20 11:44 AW (Rec: 09/26/20 12:31 AW [id number]) PT-Bed Mobility Assessment Supine to Sit Supine to Sit Standby Assistance,Bedrails Scooting Scooting to Edge of Bed Standby Assistance PT-Transfer Assessment Sit to and From Stand Sit to and from Stand Standby Assistance,Use of Upper Extremities Equipment Transfer Assistive Device Gait Belt,4 Wheeled Walker Orthotic/Prosthetic Devices or Brace: No Transfers Transfer Destination Chair Transfer Technique Stand Step Pivot Transfer Ability Level of Assist Standby Assistance Comments Mobility Comments Pt was lying in bed as PT arrived. BP in supine was 95/ 61 HR 60 SpO2 98% RA. She sat up on EOB SBA. BP was reassessed at 131/49 HR 65. She stood SBA and BP was 106/ 89 HR 88. Pt was asymptomatic. She ambulated around the room with her own 4WW SBA, navigating obstacles well. She transferred to the chair SBA and was left with call light and tray table in reach. Gait Assessment Gait Gait Assistance Required: Standby Assistance Distance (Feet) 75 Assistive Devices Assistive Device Gait Belt,4 Wheeled Walker Orthotic/Prosthetic Devices or Brace: No Gait Deviations General Gait Pattern Decreased Stride Length, Decreased Feet Clearance, Flexed Trunk,Wide Based Gait Factors Limiting Gait Function Factors Limiting Gait Function Decreased Activity Tolerance, Decreased Sensation,Decreased Strength,Pain,Respiratory Distress Comments Gait Comments Pt was mildly SOB after 75 feet ambulation in room with 4WW but SpO2 was stable. She complained of B calf cramps prior to mobilizing, partially resolved with activity. Stair Climbing Assessment Comments Stair Climbing Comments Not assessed. PT-Balance Assessment Sitting Balance and Reactions Static Sitting Balance Ability Good Dynamic Sitting Balance Ability Good Standing Balance and Reactions Static Standing Balance Ability Good Dynamic Standing Balance Ability Good Device Used 4WW M5 PT-IP Objective Assessments Start: 09/26/20 10:22 Freq: NEEDED Status: Active Protocol: Document 09/26/20 11:44 AW (Rec: 09/26/20 12:31 AW [id number]) Orientation Orientation/Cognition Level of Alertness Alert Orientation Name,Month,Place,Situation Language Function Ability No Deficits Noted Safety Awareness Understands Safety Issues Memory Description No Deficits Noted Gross Range of Motion Lower Extremity ROM Assessment Within Functional Limits Strength Lower Extremity Strength Assessment Bilaterally Impaired Hip 4/5 Knee 4+/5 Ankle 4/5 Sensation Assessment Sensation Gross Sensation Right LE Impaired,Left LE Impaired Light Touch Impaired Sensation Description Numbness Comments Sensation Comments B feet numb on plantar aspects with left more affected than right. Pt states this is a result of a poor surgical outcome following lumbar surgery years ago. Muscle Tone Muscle Tone WNL Yes M6 PT-IP Treatment Start: 09/26/20 10:22 Freq: NEEDED Status: Active Protocol: Document 09/26/20 11:44 AW (Rec: 09/26/20 12:31 AW [id number]) Physical Therapy Treatment Education Education Provided Safety Other Treatments Other Treatment Performed Educated pt on PT plan of care and energy conservation techniques. M7 PT-IP Assessment and Plan Start: 09/26/20 10:22 Freq: NEEDED Status: Active Protocol: Document 09/26/20 11:44 AW (Rec: 09/26/20 12:31 AW [id number]) PT Summary Assessment and Plan Potential Rehabilitation Potential Good Status of Condition at Evaluation Evolving Summary Impairments Pain,Strength,Balance, Sensation,Transfers,Gait, Activity Tolerance Assessment Summary Latonia is an 85 yo woman seen for PT evaluation with admitting diagnosis of hypoglycemia and CAYETANO. She has an indwelling navarro catheter and has been admitted three times this year. She is currently active with [facility] . She is modified independent with use of 4WW for household and limited community mobility . On evaluation, pt is likely near her functional baseline but would benefit from continued acute PT to mitigate the risks of immobility, improve strength, and improve functional mobility. She will be safe to discharge home with spouse assist and resumed services once medically cleared. Goals Bed Mobility Goal Independent Transfer Goal Independent,Four Wheeled Walker Gait Goal Independent,Four Wheel Walker Gait Distance 200 Other Goals - up/down 5 steps with narrow B rails. Days to Meet Goals 3 Frequency of Treatment Frequency Of Treatment Once a Day Treatment Plan Physical Therapy Treatment Plan Bed Mobility Training,Transfer Training,Gait Training, Therapeutic Exercise,Balance Retraining,Discharge Planning, Neuromuscular Re-ed Other Recommendations and Next Treatment gait training with 4WW for Focus endurance; monitor VS Precautions Other Precautions indwelling navarro catheter Recommendations To Nursing Amount of Assist Needed Standby Assistance,1 Person Assist Discharge Recommendations PT Discharge Recommendations Home with Assistance,Home Health Transportation Needs at Discharge Private Vehicle
--- NOTE | 2020-09-26 12:12 | OT.IP.EVAL ---
Past Medical History (Last Reviewed 09/26/20 @ 05:37 by Rosales Veronica DO) Anxiety Calculus of kidney Depression GI bleed Gross hematuria H/O gastric bypass H/O mastectomy History of back surgery History of hip replacement History of recurrent UTI (urinary tract infection) History of thyroidectomy HTN (hypertension) Hx of bilateral cataract extraction (2012) Hx of cystoscopy (08/04/19) Hypothyroid Nephrolithiasis Nephrostomy status Noncompliant neurogenic bladder Obstructive uropathy MORGAN on CPAP Peptic ulcer disease Pneumothorax Postmenopausal atrophic vaginitis Ureteral obstruction, left Urinary incontinence, mixed Surgical History (Last Reviewed 08/05/20 @ 13:32 by Leopoldo Cho MD) H/O gastric bypass H/O mastectomy History of back surgery History of hip replacement History of thyroidectomy Hx of bilateral cataract extraction (2012) Hx of cystoscopy (08/04/19) Nephrostomy status Occupational Therapy Inpatient Evaluation/Re-Eval M1 PT/OT-IP Prior Functional Status Start: 09/26/20 10:22 Freq: NEEDED Status: Active Protocol: Document 09/26/20 13:10 CGR (Rec: 09/26/20 13:19 CGR [id number]) Medical Review Prior Functional Status Medical History Reviewed Yes Communication WNL Mobility and Gait Modified independent with 4WW for household and limited community mobility. Activities of Daily Living and IADL's Pt states she is independent or SBA with ADL's. Prior Functional Level (Other details) Pt has indwelling navarro catheter. She has been admitted to the hospital three times since June. [facility]. Social History Household Members spouse Living Arrangements House Number of Floors (Floors) One Floor Number of Stairs To Enter/Railing? 5 SOHAIL with narrow B rails. Home Environment High Toilet,Walk in Shower Home Equipment Four Wheel Walker,Straight Cane,Shower Seat without Backrest,Fire Support Specialist,Grab Bars Near Toilet,Grab Bars In Shower Employment Status Retired Additional Social History Comment Pt states she has an adjustable bed at home. 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 She lives with her spouse, Bill, on [facility]. M1 PT/OT-IP Prior Functional Status Start: 09/26/20 13:10 Freq: NEEDED Status: Active Protocol: Document 09/26/20 13:10 CGR (Rec: 09/26/20 13:19 R [id number]) Medical Review Prior Functional Status Medical History Reviewed Yes Communication WNL Mobility and Gait Modified independent with 4WW for household and limited community mobility. Activities of Daily Living and IADL's Pt states she is independent or SBA with ADL's. Prior Functional Level (Other details) Pt has indwelling navarro catheter. She has been admitted to the hospital three times since June. [facility]. Social History Household Members spouse Living Arrangements House Number of Floors (Floors) One Floor Number of Stairs To Enter/Railing? 5 SOHAIL with narrow B rails. Home Environment High Toilet,Walk in Shower Home Equipment Four Wheel Walker,Straight Cane,Shower Seat without Backrest,Fire Support Specialist,Grab Bars Near Toilet,Grab Bars In Shower Employment Status Retired Additional Social History Comment Pt states she has an adjustable bed at home. 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 She lives with her spouse, Bill, on [facility]. M2 OT-IP Current Condition Start: 09/26/20 13:10 Freq: Status: Active Protocol: Document 09/26/20 13:10 CGR (Rec: 09/26/20 13:19 CGR [id number]) Occupational Therapy Current Condition Current Condition Evaluation Date 09/26/20 Treatment Diagnosis hypoglycemia, UTI Diagnosis Onset Date 09/26/20 M3 OT- IP Subjective and Pain Start: 09/26/20 13:10 Freq: Status: Active Protocol: Document 09/26/20 13:10 CGR (Rec: 09/26/20 13:19 R [id number]) OT- Subjective Occupational Therapy Visit Type Type Initial Evaluation Visit Start Time 11:40 Visit Stop Time 12:12 Total Visit Minutes 32 Notes P.T. finishing up with pt when OT entered. OT Pain Assessment Pain When Pain Assessed At Rest Pain Present Pain Present Pain Reported Location Bilateral Leg Intensity 4 Management Techniques Modification of Treatment,Re- positioning M4 OT- IP ADL's Start: 09/26/20 13:10 Freq: Status: Active Protocol: Document 09/26/20 13:10 CGR (Rec: 09/26/20 13:19 R [id number]) OT [facility] Comments OT Self-Feeding Comments Not meal time OT ADL-Grooming General Evaluation Grooming Ability Independent Areas Needing Assistance Retrieving/Set-up of Grooming Items,Combing/Brushing Hair, Face Washing Comments OT Grooming Comments standing at sink OT ADL-Oral Care General Eval Oral Care Ability Independent Comments Oral Care Comments standing at sink OT ADL-Dressing General Eval Lower Body Dressing Ability Independent Areas Needing Assistance Socks Comments OT Dressing Comments seated in chair OT ADL-Toileting Comments OT Toileting Comments not performed OT ADL-Bathing Comments OT Bathing Comments not performed M5 OT- IP IADL's Start: 09/26/20 13:10 Freq: Status: Active Protocol: Document 09/26/20 13:10 CGR (Rec: 09/26/20 13:19 CGR [id number]) OT-Instrumental Activities of Daily Living Deficits IADL Deficits Identified No Deficits Home Safety Awareness Awareness of Need for Assistance at Home Good Awareness Ability to Problem Solve Emergency Able to Problem Solve Situations Medication Management Medication Management No Deficits Identified Money Management Money Management No Deficits Identified Meal Preparation Meal Preparation Caregiver Provides Assist Motor Pool Driver Motor Pool Driver Caregiver Provides Assist Driving Driving Comments Pt is an active truss driver helper M6 OT- IP Functional Cognition Start: 09/26/20 13:10 Freq: Status: Active Protocol: Document 09/26/20 13:10 CGR (Rec: 09/26/20 13:19 CGR [id number]) Cognitive Factors Limiting Selfcare Function Cognitive Ability Level of Alertness Alert Patient Orientation Name,Age,Birthday,Month,Date, Year,Day of Week,Place, Situation Attention Span Ability Capable of Focused Attention, Capable of Sustained Attention Ability to Follow Commands Able to Follow Multi-Step Commands Memory Description No Deficits Noted Safety Awareness No Deficits Noted OT- Vision and Hearing OT- Hearing Assessment OT- Hearing Assessment Use of Hearing Aids OT- Vision Assessment Visual Acuity Glasses All The Time Visual Attentiveness WFL Occular Pursuits WFL Visual Convergence WFL Vision Assessment Comments Pt wears trifocals M7 OT- IP Mobility and Balance Start: 09/26/20 13:10 Freq: Status: Active Protocol: Document 09/26/20 13:10 CGR (Rec: 09/26/20 13:19 CGR [id number]) OT-Transfer Assessment Sit to and From Stand Sit to and from Stand Standby Assistance Transfers Transfer Ability Standby Assistance Technique Transfer Destination Chair Transfer Technique Stand Step Pivot Devices Transfer Assistive Devices Gait Belt,4 Wheeled Walker Comments Mobility Comments Pt was able to walk from chair to sink and return without difficulty. Pt needed reminder to bringer her catheter along and states that she forgets it at home. She states she has tried the leg bag but doesn't like it. OT- Balance Assessment Sitting Balance and Reactions Static Sitting Balance Ability Normal Dynamic Sitting Balance Ability Good M8 OT- IP Objective Assessments Start: 09/26/20 13:10 Freq: Status: Active Protocol: Document 09/26/20 13:10 CGR (Rec: 09/26/20 13:19 CGR [id number]) OT Gross Range of Motion Upper Extremity Range of Motion Assessment Right Impaired ROM Impairments R shld 0-80 OT Strength Upper Extremity Strength Assessment Within Functional Limits Comments Strength Comments 5-/5 except R shld 4-/5 OT- Coordination Assessment Upper Extremity Finger to Nose Test Within Functional Limits Finger Tapping Test Within Functional Limits OT-Muscle Tone Assessment Muscle Tone WNL Yes OT Sensation Assessment Edema Edema Absent M9 OT- IP Assessment and Plan Start: 09/26/20 13:10 Freq: Status: Active Protocol: Document 09/26/20 13:10 CGR (Rec: 09/26/20 13:19 CGR [id number]) OT Summary Assessment and Plan Potential Rehabilitation Potential Excellent Analytic Complexity at Evaluation Low Summary OT Impairments Pain,Range of Motion,Strength, Activity Tolerance Progress Towards Goals Safe For Discharge,Goals Met Assessment Summary Pt presents as a low complexity evaluation s/p admit for hypoglycemia. Pt was also found to have a UTI. Pt presents at her baseline at this time. No further OT needs . Frequency of Treatment Frequency Of Treatment Discharge Discharge Recommendations OT Discharge Recommendations Home with Assistance Transportation Needs at Discharge Private Vehicle
--- NOTE | 2020-09-26 12:21 | PC.NURSE ---
Day shift: Pt had bloody nose and it has resolved already. Had approx 3mls or less of blood. Dr Yonas Pappas was called and informed. Pt tolerated well PT/OT this afternoon. Sitting in chair and eating lunch w/ no complaints. Pt did state that she has been having nose bleeds for the last few days. WIll continue to monitor this as well as continue w/ plan of care.
[2020-09-26] MEDS: CITALOPRAM 10 MG TABLET PO (17:34)
[2020-09-26] MEDS: ATORVASTATIN 20 MG TABLET 40 MG PO (20:33)
[2020-09-26] MEDS: NYSTATIN POWDER 15GM 1 APPLIC TOP (20:34)
--- NOTE | 2020-09-26 21:21 | PC.NURSE ---
Patient c/o L great toe pain. Assessment shows swelling and redness with tenderness to the touch. No personal history of gout, but patient states her mom had it. Call placed to Dr. Pappas and informed her of this and uric acid was ordered for 0500 tomorrow (09/27/20) and will have her partner take a look at the toe tomorrow.
[2020-09-26] MEDS: TRAMADOL 50 MG TABLET PO (21:47)
[2020-09-27 04:00] VITALS: BP 113/61; PULSE 77; RESP 18; TEMP 36.2; O2SAT 96
[2020-09-27] MEDS: TRAMADOL 50 MG TABLET PO (04:50)
[2020-09-27 05:15] LABS: Add Manual Diff / Slide Review NO; Basophils Absolute Auto 100 /uL (0-100); Basophils Percent Auto 0.7 % (0-2); Eosinophils Absolute Auto 400 /uL (0-450); Eosinophils Percent Auto 4.6 % (2-4); Hematocrit 36.6 % (36-46); Hemoglobin 11.8 g/dL (12.0-16.0); Lymphocytes Absolute Auto 1700 /uL (1100-4500); Lymphocytes Percent Auto 18.6 % (25-40); Mean Corpuscular HGB Conc 32.2 % (30-36); Mean Corpuscular Hemoglobin 28.7 PG (26-34); Mean Corpuscular Volume 89.1 fL (80-100); Monocytes Absolute Auto 1600 /uL (0-900); Neutrophils Absolute Auto 5500 /uL (1500-7000); Neutrophils Percent Auto 59.1 % (50-75); Platelet Count 260 X10^3/uL (150-400); Red Blood Cell Count 4.11 X10^6/uL (4.0-5.2); Red Cell Distribution Width 14.6 % (11.6-14.8); White Blood Cell Count 9.3 X10^3/uL (4.5-11.0)
[2020-09-27 05:26] LABS: Alanine Aminotransferase 79 IU/L (<35); Albumin 3.6 g/dL (3.5-5.0); Alkaline Phosphatase 118 U/L (38-126); Aspartate Aminotransferase 75 IU/L (14-36); BUN Creatinine Ratio 25.7 (6-22); Bilirubin Total 0.2 mg/dL (0.2-1.3); Blood Urea Nitrogen 65 mg/dL (7-17); Calcium 9.4 mg/dL (8.4-10.2); Carbon Dioxide 21 mmol/L (22-32); Chloride 109 mmol/L (98-107); Estimated Glomerular Filt Rate 18.1 mL/min (>60); Globulin 3.6 g/dL (1.7-4.1); Glucose 125 mg/dL (80-110); HEMOLYSIS < 15 (0-50); Potassium 5.3 mmol/L (3.4-5.1); Sodium 136 mmol/L (137-145); Total Protein 7.2 g/dL (6.3-8.2); Uric Acid 8.8 mg/dL (2.5-6.2)
[2020-09-27 05:34] LABS: NT-proBNP (BNP-Adult 18+) 2790 pg/mL (<450)
[2020-09-27] MEDS: LEVOTHYROXINE 100 MCG TABLET PO (06:02)
[2020-09-27 06:05] LABS: TSH w/ Reflex to FT4 0.53 uIU/mL (0.47-4.68)
--- NOTE | 2020-09-27 07:00 | DI.ECHO.S_ITS ---
[facility]---------+ [facility] +---------+ : : [phone] [address] : : : : [id number] : : : : Phone: [phone]+ Echocardiogram Report + + :Name: DALLIN MANLEY Study Date: 09/27/2020 Height: 58 in : :[facility] ReadingLocation: Weight: 208 lb : : Gender: Female BSA: 1.9 m2 : :: 1935 Age: 85 yrs BP: 111/67 mmHg: :Reason For Study: Atrial fibrillation : :Ordering Physician: CARLOS, : :JASON Performed By: Emmanuel Tarango : :Referring: JASON GONZALEZ : + + Interpretation Summary Normal left ventricle size with ejection fraction 60-65%. Normal right ventricle and both atria. Mild aortic valve sclerosis. Mild mitral annular calcification. Procedure: A two-dimensional transthoracic echocardiogram with color flow and Doppler was performed. The study quality was technically adequate. The patient was in atrial fibrillation with heart rates between 73-115 bpm during the exam. Left Ventricle: The left ventricle is normal in size and wall thickness. The ejection fraction is estimated to be 60-65%. There are no focal wall motion abnormalities. Diastolic function could not be accurately assessed due to atrial fibrillation. Right Ventricle: The right ventricle is normal in size and function. Atria: Both atria are normal in size. There is no Doppler evidence for an interatrial shunt. Mitral Valve: There is mild mitral annular calcification. There is trace mitral regurgitation. Aortic Valve: There is mild aortic valve sclerosis. There is trace aortic regurgitation. Tricuspid Valve: The tricuspid valve is normal in structure and function. There is a trace or physiologic amount of tricuspid regurgitation. Pulmonary artery pressures cannot be estimated because of the lack of a measurable TR jet velocity but the IVC suggests a CVP of around 3 mmHg. Pulmonic Valve: The pulmonic valve is normal in structure and function. There is no pulmonic valvular regurgitation. Great Vessels: The aortic root is normal size. The dimensions of the ascending aorta are normal. The IVC is of normal diameter and collapses greater than 50% with a sniff. This suggests a low right atrial pressure of 3 mm Hg. Pericardium/ Pleura There is no pericardial effusion. There is no pleural effusion. MMode/2D Measurements & Calculations LVIDd: 4.2 cm LVOT diam: 1.9 cm LVIDs: 2.7 cm Ao root diam: 2.8 cm FS: 35.7 % asc Aorta Diam: 3.1 cm IVSd: 1.0 cm LVPWd: 0.90 cm LV zamarripa. diameter/BSA (cm/m^2): 2.3 LV sys. diameter/BSA (cm/m^2): 1.5 LA dimension: 3.5 cm RA long axis: 4.3 cm LA A2 area: 16.1 cm2 LA A4 area: 15.8 cm2 LA length (vol): 4.9 cm LA vol: 44.5 ml LA vol index: 24.0 ml/m2 LVLs ap4: 5.9 cm LVLd ap2: 6.2 cm LVLs ap2: 5.4 cm TAPSE_phl: 1.8 cm RVIDd/LVIDd_phl: 0.67 Doppler Measurements & Calculations Ao V2 max: 152.0 cm/sec LVOT Max Cedrick: 106.0 cm/sec Ao V2 mean: 109.0 cm/sec LV V1 max P.5 mmHg Ao max P.0 mmHg LV V1 VTI: 17.5 cm Ao mean P.0 mmHg SULMA(I,D): 1.9 cm2 Ao V2 VTI: 26.8 cm SULMA(V,D): 2.0 cm2 sev ratio: 0.65 SULMA indexed to BSA (cm^2/m^2): 1.00 PA V2 max: 122.0 cm/sec SV(LVOT): 49.6 ml PA V2 mean: 86.6 cm/sec PA mean P.0 mmHg PA pr(Accel): 49.3 mmHg AV VR_phl: 0.70 SULMA(VTI)/BSA_phl: 1.0 Electronically signed by: Moises Braga on Reading Physician:09/27/2020 10:39 AM
[2020-09-27 08:00] VITALS: BP 97/58; PULSE 88; RESP 18; TEMP 36.6; O2SAT 95
--- NOTE | 2020-09-27 08:46 | PM.PN.1 ---
Subjective Subjective Date Patient Seen: 09/27/20 Time Patient Seen: 08:46 Exam Vital Signs (past 8 hours): - 09/27/20 04:00 Temperature 97.2 F L Pulse Rate 77 Respiratory Rate 18 Blood Pressure 113/61 Pulse Oximetry 96 Oxygen Delivery Method Room Air Oxygen Flow Rate 0 Objective Labs Result Diagrams: 09/27/20 05:00 09/27/20 05:00 Labs: Laboratory Results - last 24 hr 09/27/20 09/27/20 09/27/20 05:00 05:00 05:00 WBC 9.3 RBC 4.11 Hgb 11.8 L Hct 36.6 MCV 89.1 MCH 28.7 MCHC 32.2 RDW 14.6 Plt Count 260 Neut % (Auto) 59.1 Lymph % (Auto) 18.6 L [place] % (Auto) 17.0 H Eos % (Auto) 4.6 H Baso % (Auto) 0.7 Neut # (Auto) 5500 Lymph # (Auto) 1700 [place] # (Auto) 1600 H Eos # (Auto) 400 Baso # (Auto) 100 Sodium Potassium Chloride Carbon Dioxide BUN Creatinine Estimated GFR BUN/Creatinine Ratio Glucose Uric Acid 8.8 H Calcium Total Bilirubin AST ALT Alkaline Phosphatase NT-Pro-B Natriuret Pep Total Protein Albumin Globulin Albumin/Globulin Ratio TSH 0.53 09/27/20 05:00 WBC RBC Hgb Hct MCV MCH MCHC RDW Plt Count Neut % (Auto) Lymph % (Auto) [place] % (Auto) Eos % (Auto) Baso % (Auto) Neut # (Auto) Lymph # (Auto) [place] # (Auto) Eos # (Auto) Baso # (Auto) Sodium 136 L Potassium 5.3 H Chloride 109 H Carbon Dioxide 21 L BUN 65 H Creatinine 2.53 H Estimated GFR 18.1 L BUN/Creatinine Ratio 25.7 H Glucose 125 H Uric Acid Calcium 9.4 Total Bilirubin 0.2 AST 75 H ALT 79 H Alkaline Phosphatase 118 NT-Pro-B Natriuret Pep 2790 H Total Protein 7.2 Albumin 3.6 Globulin 3.6 Albumin/Globulin Ratio 1.0 TSH PFSH Medical History Anxiety Calculus of kidney Depression GI bleed Gross hematuria History of recurrent UTI (urinary tract infection) HTN (hypertension) Hypothyroid Nephrolithiasis Noncompliant neurogenic bladder Obstructive uropathy MORGAN on CPAP Peptic ulcer disease Pneumothorax Postmenopausal atrophic vaginitis Ureteral obstruction, left Urinary incontinence, mixed Surgical History H/O gastric bypass H/O mastectomy History of back surgery History of hip replacement History of thyroidectomy Hx of bilateral cataract extraction (2012) Hx of cystoscopy (08/04/19) Nephrostomy status Family History Father Seizures Mother Heart disease Diabetes mellitus Brother No significant medical problems Sister Diabetes mellitus Grandmother Diabetes mellitus Social History household members: spouse Smoking Status: Never smoker alcohol intake: never eating out: rarely or never Type(s) of exercise: none
[2020-09-27] MEDS: NYSTATIN POWDER 15GM 1 APPLIC TOP (09:09)
[2020-09-27 09:12] VITALS: PULSE 89
[2020-09-27] MEDS: FLUCONAZOLE 100 MG TABLET PO (09:12)
[2020-09-27] MEDS: CITALOPRAM 10 MG TABLET PO (09:12)
[2020-09-27] MEDS: GABAPENTIN 300 MG CAPSULE PO (09:12)
[2020-09-27] MEDS: METOPROLOL ER 50 MG TABLET PO (09:12)
[2020-09-27] MEDS: CIPROFLOXACIN 400 MG/200 ML PIGGYBACK 150 MG IV (09:15)
[2020-09-27 09:57] VITALS: PULSE 75
--- NOTE | 2020-09-27 10:32 | PT.IPTN ---
Addendum entered and electronically signed by Kristin Alfredo PT 09/27/20 10:45: Uric acid is 8.8 today. Original Note: Physical Therapy Treatment Note M2 PT-IP Current Condition Start: 09/26/20 10:22 Freq: NEEDED Status: Active Protocol: Document 09/26/20 11:44 AW (Rec: 09/26/20 12:31 AW [id number]) Physical Therapy Current Condition Current Condition Evaluation Date 09/26/20 Treatment Diagnosis hypoglycemia, CAYETANO, generalized weakness Onset Date 09/25/20 Precautions Other Precautions indwelling navarro catheter M3 PT-IP Subjective Start: 09/26/20 10:22 Freq: NEEDED Status: Active Protocol: Document 09/27/20 10:32 AW (Rec: 09/27/20 10:44 AW [id number]) Subjective Physical Therapy Visit Type Type Treatment Note Visit Start Time 10:18 Visit Stop Time 10:32 Total Visit Minutes 14 Notes Pt's spouse was present throughout treatment 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 Therapy Pain Assessment Pain When Pain Assessed At Rest Pain Present Pain Present Pain Reported Location Bilateral Toe Scale Used not quantified Description Sharp,With Movement Pain Behaviors Guarding,Wincing Pain Management Techniques Distraction,Modification of Treatment M4 PT-IP Mobility and Gait Start: 09/26/20 10:22 Freq: NEEDED Status: Active Protocol: Document 09/27/20 10:32 AW (Rec: 09/27/20 10:44 AW [id number]) PT-Bed Mobility Assessment Supine to Sit Supine to Sit Standby Assistance Scooting Scooting to Edge of Bed Standby Assistance PT-Transfer Assessment Sit to and From Stand Sit to and from Stand Standby Assistance Equipment Transfer Assistive Device Gait Belt,4 Wheeled Walker Orthotic/Prosthetic Devices or Brace: No Transfers Transfer Destination Bed Transfer Technique pt amb with 4ww Transfer Ability Level of Assist Standby Assistance Comments Mobility Comments Pt was lying in bed as PT arrived. She completed supine to sit SBA with increased time and stood EOB CGA with complaints of forefoot pain. She tended to keep her weight on her heels and required encouragement to shift weight forward. She ambulated around the room and in the halls with 4WW SBA and assist for navarro and IV management. On return to the room, pt requested return to bed, completing sit to supine SBA. She was left with call light and tray table in reach. Gait Assessment Gait Gait Assistance Required: Standby Assistance Distance (Feet) 110 Assistive Devices Assistive Device Gait Belt,4 Wheeled Walker Orthotic/Prosthetic Devices or Brace: No Gait Deviations General Gait Pattern Antalgic,Decreased Stride Length,Decreased Feet Clearance,Flexed Trunk,Wide Based Gait Factors Limiting Gait Function Factors Limiting Gait Function Decreased Activity Tolerance, Decreased Sensation,Decreased Strength,Pain,Respiratory Distress Comments Gait Comments Pain limited pt's ambulation distance as she continued to complain of forefoot pain with weightbearing. Stair Climbing Assessment Comments Stair Climbing Comments Pt refused stair assessment. I have rails on both sides and burly men to assist me at home. PT-Balance Assessment Sitting Balance and Reactions Static Sitting Balance Ability Good Dynamic Sitting Balance Ability Good Standing Balance and Reactions Static Standing Balance Ability Fair Dynamic Standing Balance Ability Fair Device Used 4WW Comments Other Balance Tests/Deviations/Treatment Balance impacted by forefoot : pain. M5 PT-IP Objective Assessments Start: 09/26/20 10:22 Freq: NEEDED Status: Active Protocol: Document 09/26/20 11:44 AW (Rec: 09/26/20 12:31 AW [id number]) Orientation Orientation/Cognition Level of Alertness Alert Orientation Name,Month,Place,Situation Language Function Ability No Deficits Noted Safety Awareness Understands Safety Issues Memory Description No Deficits Noted Gross Range of Motion Lower Extremity ROM Assessment Within Functional Limits Strength Lower Extremity Strength Assessment Bilaterally Impaired Hip 4/5 Knee 4+/5 Ankle 4/5 Sensation Assessment Sensation Gross Sensation Right LE Impaired,Left LE Impaired Light Touch Impaired Sensation Description Numbness Comments Sensation Comments B feet numb on plantar aspects with left more affected than right. Pt states this is a result of a poor surgical outcome following lumbar surgery years ago. Muscle Tone Muscle Tone WNL Yes M6 PT-IP Treatment Start: 09/26/20 10:22 Freq: NEEDED Status: Active Protocol: Document 09/27/20 10:32 AW (Rec: 09/27/20 10:44 AW [id number]) Physical Therapy Treatment Education Education Provided Safety M7 PT-IP Assessment and Plan Start: 09/26/20 10:22 Freq: NEEDED Status: Active Protocol: Document 09/27/20 10:32 AW (Rec: 09/27/20 10:44 AW [id number]) PT Summary Assessment and Plan Potential Rehabilitation Potential Good Status of Condition at Evaluation Evolving Summary Impairments Pain,Strength,Balance, Sensation,Transfers,Gait, Activity Tolerance Progress Towards Goals Progressing Toward Goals Assessment Summary Latonia is complaining of new forefoot pain today which is affecting her balance. However , she was able to ambulate with 4WW and did not need increased level of assist compared with yesterday. Pt will be safe to discharge home with assist and resumed home health services when medically stable. Goals Bed Mobility Goal Independent Transfer Goal Independent,Four Wheeled Walker Gait Goal Independent,Four Wheel Walker Gait Distance 200 Other Goals - up/down 5 steps with narrow B rails. Days to Meet Goals 3 Frequency of Treatment Frequency Of Treatment Once a Day Treatment Plan Physical Therapy Treatment Plan Bed Mobility Training,Transfer Training,Gait Training, Therapeutic Exercise,Balance Retraining,Discharge Planning, Neuromuscular Re-ed Other Recommendations and Next Treatment gait training with 4WW for Focus endurance; monitor VS Precautions Other Precautions indwelling navarro catheter Recommendations To Nursing Amount of Assist Needed Standby Assistance Discharge Recommendations PT Discharge Recommendations Home with Assistance,Home Health Transportation Needs at Discharge Private Vehicle
--- NOTE | 2020-09-27 10:56 | CM.DPC ---
Addendum entered by Didi Rowland R.N. 09/27/20 12:25: Patient will be discharged home today. Called [facility] and spoke to Shawna. Let her know that patient is currently under OBS status, and she verified that they do not need resumption orders, only DC Summary. Confirmed that patient is under nursing, P.T, and O.T. Will fax over DC Summary when completed. Original Note: DCP Cont: Met with patient, , Melquiades, was at bedside in room. Introduced self and role. Both, patient and , marzena. They both reside on [address], and have been living there for approximately 15 years. Confirmed with patient that she is independent at her baseline, and is under [facility], nursing, P.T, O.T. Patient indicated that she has had her navarro cath for a couple of months. She had echo today. Plan is most likely for patient to discharge home today. P: DCP to continue to follow. Will notify [facility] upon discharge. She is currently under OBS, and most likely will not need resumption orders, but will need DC Summary. Didi Rowland RN/Store Team Member
[2020-09-27 12:00] VITALS: BP 115/52; PULSE 69; RESP 18; TEMP 36.3; O2SAT 97
--- NOTE | 2020-09-27 12:14 | PM.DS.1 ---
History of Present Illness History of Present Illness Date Patient Seen: 09/27/20 Time Patient Seen: 08:30 Chief complaint: Feeling unwell Narrative: Pt feeling much better this morning no further epistaxis eating well no hypoglycemia VSS on clinda Discharge Providers Provider Date of admission: 09/26/20 02:42 Discharge Date: 09/27/20 Primary care physician: Adi Consults: 09/26/20 03:57 Consult to Discharge Planning Routine Comment: Consult to Occupational Therapy Evaluate & Treat Comment: Physician Instructions: Evaluate and treat Consult to Physical Therapy Evaluate & Treat Comment: Physician Instructions: Evaluate and Treat 09/26/20 16:30 Consult to Dietitian, Adult Routine Comment: Reason For Exam: morbic obesity, DMII Discharge provider: Sd Joshi MD Summary Hospital Course Discharge Diagnosis: acute hypoglycemia and dehydration Hospital Course: Ms. Bynum did well with IVF and symptomatic control of her epistaxis. Her BGs normalized and she was eating well off IVF by discharge. Echo was unconcerning for cardiac process and her VSS remained normal with normalized WBCs after receiving IV cipro. Exam Vital Signs (past 8 hours): - 09/27/20 08:00 09/27/20 09:12 09/27/20 09:57 Temperature 97.8 F Pulse Rate 88 89 75 Respiratory Rate 18 Blood Pressure 97/58 L Pulse Oximetry 95 Oxygen Delivery Method Room Air Oxygen Flow Rate 0 Narrative Exam Narrative: cheerful elder sitting up in bed enjoying breakfast Const General: cooperative, healthy appearing, comfortable and well developed HENMS Head: normal to inspection, normocephalic and atraumatic Eyes General: appearance normal, both eyes and all related structures Neck Neck: normal visual inspection, full ROM, trachea midline and No lymphadenopathy Resp Effort & Inspection: normal respiratory effort and able to speak in complete sentences Auscultation: clear to auscultation bilaterally Cardio Rate: regular rate Heart Sounds: S1 normal and S2 normal GI Inspection: normal to inspection Palpation: soft Percussion: normal to percussion Auscultation: normal bowel sounds Back/Spine/Pelvis Back: normal to inspection (well healed lumbar incision) Skin General: no rashes or lesions noted Neuro General: patient alert, patient awake, patient oriented x3, tone normal and moves all extremities Extrem General: normal to inspection and full ROM Psych Appearance: grossly normal and well kempt Objective Labs Result Diagrams: 09/27/20 05:00 09/27/20 05:00 Labs: Laboratory Results - last 24 hr 09/27/20 09/27/20 09/27/20 05:00 05:00 05:00 WBC 9.3 RBC 4.11 Hgb 11.8 L Hct 36.6 MCV 89.1 MCH 28.7 MCHC 32.2 RDW 14.6 Plt Count 260 Neut % (Auto) 59.1 Lymph % (Auto) 18.6 L Schuyler % (Auto) 17.0 H Eos % (Auto) 4.6 H Baso % (Auto) 0.7 Neut # (Auto) 5500 Lymph # (Auto) 1700 Schuyler # (Auto) 1600 H Eos # (Auto) 400 Baso # (Auto) 100 Sodium Potassium Chloride Carbon Dioxide BUN Creatinine Estimated GFR BUN/Creatinine Ratio Glucose Uric Acid 8.8 H Calcium Total Bilirubin AST ALT Alkaline Phosphatase NT-Pro-B Natriuret Pep Total Protein Albumin Globulin Albumin/Globulin Ratio TSH 0.53 09/27/20 05:00 WBC RBC Hgb Hct MCV MCH MCHC RDW Plt Count Neut % (Auto) Lymph % (Auto) Schuyler % (Auto) Eos % (Auto) Baso % (Auto) Neut # (Auto) Lymph # (Auto) Schuyler # (Auto) Eos # (Auto) Baso # (Auto) Sodium 136 L Potassium 5.3 H Chloride 109 H Carbon Dioxide 21 L BUN 65 H Creatinine 2.53 H Estimated GFR 18.1 L BUN/Creatinine Ratio 25.7 H Glucose 125 H Uric Acid Calcium 9.4 Total Bilirubin 0.2 AST 75 H ALT 79 H Alkaline Phosphatase 118 NT-Pro-B Natriuret Pep 2790 H Total Protein 7.2 Albumin 3.6 Globulin 3.6 Albumin/Globulin Ratio 1.0 TSH PFSH Medical History Anxiety Calculus of kidney Depression GI bleed Gross hematuria History of recurrent UTI (urinary tract infection) HTN (hypertension) Hypothyroid Nephrolithiasis Noncompliant neurogenic bladder Obstructive uropathy MORGAN on CPAP Peptic ulcer disease Pneumothorax Postmenopausal atrophic vaginitis Ureteral obstruction, left Urinary incontinence, mixed Surgical History H/O gastric bypass H/O mastectomy History of back surgery History of hip replacement History of thyroidectomy Hx of bilateral cataract extraction (2012) Hx of cystoscopy (08/04/19) Nephrostomy status Family History Father Seizures Mother Heart disease Diabetes mellitus Brother No significant medical problems Sister Diabetes mellitus Grandmother Diabetes mellitus Social History household members: spouse Smoking Status: Never smoker alcohol intake: never eating out: rarely or never Type(s) of exercise: none Discharge Assessment & Plan Assessment and Plan Assessment: #Hypoglycemia, present on admission Plan: BGs stable off glipizide without any further episodes of hypoglycemia requiring correction. Will discontinue on discharge and f/u with PCP, continue carb controlled diet #Urinary tract infection, acute on chronic, bacterial and fungal Plan: Urine culture has been sent, treated based on prior culture with cipro and doing well, will continue as outpt PO rx, fungal component also present treated with diflucan. Patient's elderly has been changing her navarro and this is not likely being done under sterile technique. Discussed need for prison per home health or urology RN for monthly catheter changes to reduce contamination and prevent polymicrobial multidrug resistance. #Acute on chronic kidney disease, stage 4, likely exacerbated by acute dehydration from diarrhea and travel Plan: GFR improved s/p IVF. Encouraging oral intake as well. Labs improved. #BNP elevation noted on admission BNP is markedly elevated, which is difficult to interpret in the setting of her stage 4 chronic kidney disease. Clinically, she does not have peripheral edema or pulmonary crackles. She is not dyspneic. Weight has been stable over the last 3 admissions. Good response to initial IVF did well once DCd good PO intake. Echo obtained this morning was unconcerning with EF 65%, BNP trended down nicely, pt asymptomatic, f/u as outpt #Diarrhea, acute Plan: She has had multiple courses of antibiotics due to chronic urinary tract infections in the last 3 months, risk for Clostridium difficile or other type of infectious diarrhea. stool studies pending. probiotics. #Epistaxis, acute Plan: Control obtained with positioning and nasal pressure however this is turning into a recurrent severe issue. Patient required 3 agents to achieve hemostasis with last epistaxis on 06/29/20. Oxymetazoline, silver nitrate, and TXA topical if needed. Advised avoidance of vigorous nose blowing and straining. Agree may benefit from outpatient ENT consult for evaluation of nasal polyp. resume asa on dc. #Obstructive uropathy, overflow incontinence,and detrusor instability with indwelling Navarro catheter Plan: Continue routine navarro managment. Drs. Cho and Cairssa consulting in the outpatient setting. Will need close follow-up with Dr. Cho as her navarro has not been fitting her well and has leakage. May need help wtih changing it also #Elevated liver enzymes and hyperphosphatemia, acute Plan: Likely secondary to acute on chronic kidney disease, will treat underlying disease and trend labs. #Diabetes mellitus type 2 Plan: as above, BGs normalized off glipizide #Hematuria, chronic Plan: Patient does have history of kidney stones but does not have any clinical signs of flank pain. Suspect hematuria on today's urinalysis is due to infection rather than nephrolithiasis. May benefit from KUB tomorrow if unclear. #Paroxysmal atrial fibrillation with first-degree AV block, chronic Plan: Continue rate control with metoprolol 50 mg p.o. q.day. Holding aspirin secondary to epistaxis. Telemetry. Will trend magnesium. #Hypertension, chronic Plan: Metoprolol was held due to initial hypotension. Rehydrating today and will trend vital signs and labs. Continue to hold if BP <120/80. #Hyperlipidemia, chronic Plan: Continue home atorvastatin 40 mg PO qhs. #Hypothyroidism, chronic Plan: Continue home levothyroxine 100 mcg p.o. q.a.m. Will update TSH. #MORGAN, chronic Plan: Continue home CPAP. #Morbid obesity, chronic Plan: Patient is at risk for delayed and poor healing secondary to weight. Nutrition consulted during this inpatient admission; diabetes is new dx she would benefit from outpt diet class also. #Chronic pain syndrome Plan: Continue home tramadol and gabapentin. #Atrophic vaginitis Plan: Continue home ospemifene. #Depression/anxiety Plan: Stable, continue home citalopram. Code: DNR / DNI DVT prophylaxis: SCDs, further anticoagulation contraindicated secondary to epistaxis and history of GI bleed COVID: Negative Disposition: dc home to f/u as outpt Discharge Plan Discharge Plan Patient Disposition: Home Discharge orders & Medications Prescriptions: New ciprofloxacin HCl 500 mg tablet 500 mg PO BID Qty: 10 RF: 0 fluconazole [Diflucan] 150 mg tablet 150 mg PO DAILY Qty: 1 RF: 0 Continued citalopram 10 MG tablet 10 mg PO QDAY Qty: 0 RF: 0 levothyroxine 100 MCG tablet 100 mcg PO QAM Qty: 0 RF: 0 aspirin 81 MG tablet,chewable 81 mg PO QDAY Qty: 0 RF: 0 gabapentin [Neurontin] 300 MG capsule 300 mg PO TID Qty: 0 RF: 0 fluconazole [Diflucan] 100 mg tablet 100 mg PO BID 7 Days Qty: 14 RF: 0 metoprolol succinate 50 mg tablet extended release 24 hr 50 mg PO DAILY RF: 0 triamcinolone acetonide 0.1 % cream 1 applic TOPICAL PRN PRN (Reason: rash) RF: 0 tramadol 50 mg tablet 50 mg PO Q6H PRN (Reason: pain) Qty: 10 RF: 0 Osphena 60 mg tablet 60 mg PO DAILY Qty: 90 RF: 3 Discontinued nitrofurantoin monohyd/m-cryst 100 mg capsule 100 mg PO DAILY RF: 0 glipizide 10 mg Tablet 10 mg PO DAILY RF: 0 Follow up/Referrals: Sd Joshi MD [Physician] - Diet/Activity/Treatments Diet: Carb-consistent/Diabetic Catheter: 2-way Navarro Catheter comment: indwelling per urology Skin/Wound/Dressing Care Report to your healthcare provider any signs of infection, such as:: chills, fever, night sweats and increased pain Visit Report/Discharge Packet Instructions: Hypoglycemia, Gout, DI for Hypoglycemia, How to Prevent Falls Discharge Data Attending Provider: Sarahy Pappas
--- NOTE | 2020-09-27 14:39 | PC.NURSE ---
Day shift: Pt left unit via WC at approx 1435. Taken to car driven by her spouse. Taken in WC and tolerated well. Aragon remains in place as it is a chronic one. Pt feeling better today and MD adjusted her meds. New meds at Pt's pharmacy. Pt's BG's WNL today. No pain or nausea reported. Paperwork signed and all questions answered. Pt encouraged to drink extra water especially when its warm/hot outside. Pt will also have F/U w/ her PCP this week. Pt has all personal belongings.
== END 2020-09-27 14:45 | disposition home or self-care (01) ==
LOC: ED 09-26 02:35 → AC 09-26 10:11
PROVIDERS: Admitting Provider Student in an Organized Health Care Education/Training Program; Emergency Provider Emergency Medicine; Referring Provider Emergency Medicine; Visit Provider Student in an Organized Health Care Education/Training Program
DX: E11.649 Type 2 diabetes mellitus with hypoglycemia without coma (principal); R31.9 Hematuria, unspecified; I48.0 Paroxysmal atrial fibrillation; E86.0 Dehydration; R04.0 Epistaxis; N39.0 Urinary tract infection, site not specified; B96.89 Other specified bacterial agents as the cause of diseases classified elsewhere; I12.9 Hypertensive chronic kidney disease with stage 1 through stage 4 chronic kidney disease, or unspecified chronic kidney disease; N18.4 Chronic kidney disease, stage 4 (severe); R94.5 Abnormal results of liver function studies; E83.39 Other disorders of phosphorus metabolism; N95.2 Postmenopausal atrophic vaginitis; R19.7 Diarrhea, unspecified; N13.8 Other obstructive and reflux uropathy; Z79.84 Long term (current) use of oral hypoglycemic drugs; Z79.82 Long term (current) use of aspirin; G47.33 Obstructive sleep apnea (adult) (pediatric); Z20.822 Contact with and (suspected) exposure to COVID-19; E66.01 Morbid (severe) obesity due to excess calories; G89.4 Chronic pain syndrome; F41.9 Anxiety disorder, unspecified; F32.9 Major depressive disorder, single episode, unspecified
CPT/HCPCS: 36415; 80053; 81001; 82962; 83690; 83735; 83880; 84100; 84443; 84550; 85025; 87077; 87086; 87186; 87635; 93306; 96361; 96365; 96366; 96375; 97116; 97162; 97165; 97535; 99284; C9803; G0378; J0744; J1940; J7050

== ENCOUNTER 2020-10-23 10:32 | Inpatient (IN) | payer MEDICARE, OTHER, SELFPAY ==
[2020-09-26 03:26] VITALS: BMI 43.3
[2020-10-23] VITALS (12 sets, daily range): BP systolic 93–112; BP diastolic 50–77; PULSE 63–77; RESP 18–20; TEMP 35.6–36.3; O2SAT 96–100; BMI 42.8
[2020-10-23 11:57] LABS: Appearance Urine UA TURBID; Bilirubin Urine UA NEGATIVE (NEGATIVE); Color Urine UA YELLOW; Glucose Urine UA NEGATIVE (Negative); Ketones Urine UA NEGATIVE (NEGATIVE); Leukocyte Esterase Urine UA 2+ (NEGATIVE); Nitrite Urine UA NEGATIVE (Negative); Occult Blood Urine UA 3+ (Negative); Protein Urine UA 2+ (Negative); Urobilinogen Urine UA 0.2 E.U./dL (0.2)
[2020-10-23 12:06] LABS: RBC Urine 5-10/HPF (0-5/HPF); WBC Urine >100/HPF (0-5/HPF); pH Urine UA 5.5 (4.5-8.0)
[2020-10-23 12:07] LABS: Amorphous Sediment Urine 1+; Bacteria Urine Many (>30); Culture Indicated Urine Specimen Cultured; Mucus Urine 1+ (Negative)
[2020-10-23 12:08] LABS: Add Manual Diff / Slide Review NO; Basophils Absolute Auto 200 /uL (0-100); Basophils Percent Auto 0.6 % (0-2); Eosinophils Absolute Auto 0 /uL (0-450); Eosinophils Percent Auto 0.1 % (2-4); Hematocrit 36.4 % (36-46); Hemoglobin 11.6 g/dL (12.0-16.0); Lymphocytes Absolute Auto 1100 /uL (1100-4500); Lymphocytes Percent Auto 4.1 % (25-40); Mean Corpuscular HGB Conc 31.8 % (30-36); Mean Corpuscular Hemoglobin 27.7 PG (26-34); Mean Corpuscular Volume 87.3 fL (80-100); Monocytes Absolute Auto 2100 /uL (0-900); Monocytes Percent Auto 7.6 % (3-14); Neutrophils Absolute Auto 23900 /uL (1500-7000); Neutrophils Percent Auto 87.6 % (50-75); Platelet Count 367 X10^3/uL (150-400); Red Blood Cell Count 4.17 X10^6/uL (4.0-5.2); Red Cell Distribution Width 15.4 % (11.6-14.8); White Blood Cell Count 27.3 X10^3/uL (4.5-11.0)
[2020-10-23 12:11] LABS: COVID19 -Nasal RAPID Negative (Negative)
[2020-10-23 12:14] LABS: Alanine Aminotransferase 26 IU/L (<35); Albumin 3.7 g/dL (3.5-5.0); Albumin Globulin Ratio 0.9 (1.0-2.8); Alkaline Phosphatase 117 U/L (38-126); Aspartate Aminotransferase 23 IU/L (14-36); BUN Creatinine Ratio 16.5 (6-22); Bilirubin Total 0.5 mg/dL (0.2-1.3); Blood Urea Nitrogen 63 mg/dL (7-17); Calcium 10.2 mg/dL (8.4-10.2); Carbon Dioxide 17 mmol/L (22-32); Chloride 108 mmol/L (98-107); Estimated Glomerular Filt Rate 11.3 mL/min (>60); Glucose 174 mg/dL (80-110); HEMOLYSIS 20 (0-50); Lipase 84 U/L (23-300); Potassium 5.9 mmol/L (3.4-5.1); Sodium 135 mmol/L (137-145); Total Protein 7.7 g/dL (6.3-8.2)
--- NOTE | 2020-10-23 12:30 | DI.CT.S_ITS ---
PROCEDURE: CT KIDNEY URETER BLADDER (KUB) INDICATIONS: UTI, navarro ? draining, acute on chronic CAYETANO TECHNIQUE: Axial sections were acquired from the lung bases to the pubic symphysis. Coronal and sagittal reformats were performed. For radiation dose reduction, the following was used: automated exposure control, adjustment of mA and/or kV according to patient size. COMPARISON:[facility], CT, CT KIDNEY URETER BLADDER (KUB), 07/02/2019, 12:03. [facility], CT, CT ABDOMEN PELVIS WO CON, 09/05/2020, 11:23. FINDINGS: Image quality: Excellent. Lung bases: Unremarkable. Heart: No acute findings. URINARY: Previously seen hydronephrosis and hydroureter is not significantly changed. There is similar bilateral perinephric and periureteric fat stranding. Ureteral wall thickening and inflammatory change surrounding the ureter at the mid ureteral segment has worsened. The ureteral wall measures up to 1.2 centimeters on series 2, image 55 compared with up to 7 millimeters on 09/05/2020 examination at this same level. Findings may represent ureteritis although neoplasm is also a concern. ABDOMEN: Liver: Normal unenhanced CT appearance of the liver. Gallbladder: Cholelithiasis again noted. No findings of cholecystitis. Biliary ducts: Nondilated. Pancreas: Within normal limits. Spleen: Normal. Adrenal Glands: Right adrenal nodule and adreniform thickening of the left adrenal gland similar to the prior study. Stomach and Bowel: No abnormally dilated or thickened loop of bowel. No pericolonic or mesenteric inflammatory changes. Peritoneum: No abnormal intraperitoneal fluid. No free air. Ventral Wall: Unchanged midline ventral fat containing hernia at the level of the umbilicus. Abdominal Nodes: No enlarged retroperitoneal or mesenteric lymph nodes. Vessels: Aorta and inferior vena cava are normal in size. PELVIS: Pelvic Organs: Decompressed by a Navarro catheter. Not well evaluated otherwise. Atrophic ovaries and uterus. Pelvic Nodes: No threshold enlarged pelvic or inguinal lymph node. Miscellaneous: No inguinal hernias are seen. Bones: Unremarkable. IMPRESSION: Severe bilateral hydronephrosis and moderate bilateral hydroureter, not significantly changed from most recent comparison study performed September 2020. Focus of ureteral thickening and periureteric fat stranding has worsened when compared with the prior study, with increased ureteral wall thickening. This is likely due to ureteral right is although an underlying ureteral neoplasm cannot be strictly excluded. Navarro catheter is in appropriate position within the urinary bladder which is entirely decompressed. Dictated by: Shawn Alcocer M.D. on 10/23/2020 at 13:26 Approved by: Shawn Alcocer M.D. on 10/23/2020 at 13:32
[2020-10-23] MEDS: SODIUM CHLORIDE 0.9% 1,000 ML 1000 ML IV (12:33)
--- NOTE | 2020-10-23 12:34 | ED.NAVMDI ---
HPI - Nausea/Vomiting/Diarrhea General Chief complaint: Nausea/Vomiting/Diarrhea Stated complaint: cath not draining correct/ vomitting Time Seen by Provider: 10/23/20 12:34 Source: patient Mode of arrival: Ambulatory Limitations: no limitations History of Present Illness HPI Narrative: This is an 85-year-old female comes emergency department with complaint of her catheter not draining correctly. Patient states she also had some vomiting yesterday. She has had some generalized abdominal discomfort describes a little bit more in the right upper quadrant region. She denies any fevers or chills. She is not currently nauseated. She did not take her medications this morning or yesterday afternoon. Patient has had bowel movements. She has not been constipated. She has had about 100 cc of output from 7:00 a.m. but they had to milk it and there seemed to be a blockage at the bag itself. And patient states she did have any output several hours before that. Patient does have a chronic indwelling Navarro catheter because her bladder does not ?work properly?. She has had prior back issues and has some paresthesias in sensation changes. She does follow with Dr. Cho from Urology but home health care has been helping with her catheter changes and she had 1 last . She denies chest pain or shortness of breath. She denies back or flank pain. Related Data Home Medications Medication Instructions Recorded Confirmed aspirin 81 mg chewable tablet 81 mg PO QDAY #0 01/31/16 09/26/20 citalopram 10 mg tablet 10 mg PO QDAY #0 01/31/16 09/26/20 gabapentin 300 mg capsule 300 mg PO TID #0 01/31/16 09/26/20 (Neurontin) levothyroxine 100 mcg tablet 100 mcg PO QAM #0 01/31/16 09/26/20 metoprolol succinate 50 mg 50 mg PO DAILY 08/04/19 09/26/20 tablet,extended release 24 hr triamcinolone acetonide 0.1 % 1 applic TOPICAL PRN PRN 09/05/20 09/26/20 topical cream Previous Rx's Medication Instructions Recorded tramadol 50 mg tablet 50 mg PO Q6H PRN #10 tab 09/06/20 ciprofloxacin HCl 500 mg tablet 500 mg PO BID #10 tab 09/27/20 fluconazole 150 mg tablet 150 mg PO DAILY #1 tab 09/27/20 (Diflucan) ospemifene 60 mg tablet (Osphena) See Rx Instructions .ROUTE 10/18/20 .COMPLEX #90 tab Allergies Allergy/AdvReac Type Severity Reaction Status Date / Time alcohol Allergy Severe Rash, Verified 10/23/20 11:20 facial swelling amphotericin B AdvReac Severe Jittery, Verified 10/23/20 11:20 [AMPHOTERICIN B] tremors Review of Systems Review of Systems ROS Unobtainable: All systems reviewed & are unremarkable except as noted in HPI and below Patient History Medical History Anxiety Calculus of kidney Depression GI bleed Gross hematuria History of recurrent UTI (urinary tract infection) HTN (hypertension) Hypothyroid Nephrolithiasis Noncompliant neurogenic bladder Obstructive uropathy MORGAN on CPAP Peptic ulcer disease Pneumothorax Postmenopausal atrophic vaginitis Ureteral obstruction, left Urinary incontinence, mixed Surgical History H/O gastric bypass H/O mastectomy History of back surgery History of hip replacement History of thyroidectomy Hx of bilateral cataract extraction (2012) Hx of cystoscopy (08/04/19) Nephrostomy status Family History Father Seizures Mother Heart disease Diabetes mellitus Brother No significant medical problems Sister Diabetes mellitus Grandmother Diabetes mellitus Social History household members: spouse Smoking Status: Never smoker alcohol intake: never eating out: rarely or never Type(s) of exercise: none Smoking Status: Never smoker alcohol intake frequency: other Substance Use Type: does not use Exam Narrative Exam Narrative: GENERAL: Alert and oriented x three, female in mild distress. HEENT: Head normocephalic, atraumatic, EOMI, pupils reactive, face symmetric, moist mucous membranes NECK: Supple, full range of motion CARDIOVASCULAR: Regular rate and rhythm without murmurs, rubs or gallops. RESPIRATORY: Breath sounds equal bilaterally, no wheezes rales or rhonchi. ABDOMEN: Soft, nontender on exam. Nondistended. Normoactive bowel sounds all 4 quadrants. No guarding or rebound, rigidity, no mass : No CVA tenderness, patient does have a catheter in place she has multi colored urine in the bag. There was a very clear urine draining but this may be saline flushed as it does not appear same as here in the bag. EXTREMITIES: No edema. NEUROLOGICAL: Cranial nerves II through XII grossly intact. Moving all extremities SKIN: Warm, dry, no petechiae, no rashes or lesions. Initial Vital Signs Initial Vital Signs: Vital Signs Temperature 97.4 F L 10/23/20 11:20 Pulse Rate 67 10/23/20 11:20 Respiratory Rate 20 10/23/20 11:20 Blood Pressure 104/77 10/23/20 11:20 Pulse Oximetry 97 10/23/20 11:20 Course Orders Ordered: ED Orders 10/23/20 11:38 COVID19 -Nasal swab/Pre-Proc Stat Complete Blood Count AUTO DIFF Stat Comprehensive Metabolic Panel Stat Lactate (Lactic Acid) Stat Lipase Stat Procalcitonin Stat Urinalysis and Microscopic Stat Urine Culture Stat 10/23/20 12:30 CT kidney ureter bladder (KUB) Stat 10/23/20 12:47 Blood Culture Stat 10/23/20 14:29 COVID19 - ADMIT (CIVIL RIGHTS REPRESENTATIVE swab/PCR) Stat Discontinued Medications Sodium Chloride (Normal Saline 0.9%) 1,000 mls @ 1,000 mls/hr IV BOLUS ONE Stop: 10/23/20 13:31 Last Infusion: 10/23/20 15:17 Dose: 1,000 mls/hr Documented by: Admin: 10/23/20 12:33 Dose: 1,000 mls/hr Documented by: ANDRE Sodium Chloride (Normal Saline 0.9%) 1,000 mls @ 1,000 mls/hr IV BOLUS ONE Stop: 10/23/20 13:29 Last Admin: 10/23/20 12:35 Dose: Not Given Documented by: ANDRE Levofloxacin (Levaquin) 750 mg in 150 mls @ 100 mls/hr IV NOW ONE Stop: 10/23/20 14:02 Last Infusion: 10/23/20 14:31 Dose: 0 mls/hr Documented by: Admin: 10/23/20 12:49 Dose: 100 mls/hr Documented by: ANDRE Piperacillin Sod/Tazobactam (Sod 4.5 gm/ Sodium Chloride) 100 mls @ 200 mls/hr IV NOW ONE Stop: 10/23/20 13:56 Last Infusion: 10/23/20 15:18 Dose: 0 mls/hr Documented by: Admin: 10/23/20 14:38 Dose: 200 mls/hr Documented by: ANDRE Sodium Chloride (Normal Saline 0.9%) 1,000 mls @ 500 mls/hr IV BOLUS ONE Stop: 10/23/20 17:36 Last Admin: 10/23/20 15:38 Dose: 500 mls/hr Documented by: ANDRE Vital Signs Vital signs: Vital Signs - 8 hr 10/23/20 12:20 10/23/20 12:30 10/23/20 13:11 Pulse Rate 72 66 71 Blood Pressure 94/57 L Pulse Oximetry 97 98 99 10/23/20 13:30 10/23/20 14:00 10/23/20 14:30 Pulse Rate 66 68 77 Blood Pressure 93/55 L 97/51 L Pulse Oximetry 97 100 99 10/23/20 14:32 10/23/20 15:00 Pulse Rate 64 63 Blood Pressure 112/51 L 102/55 L Pulse Oximetry 100 99 MDM - Nausea/Vomiting/Diarrhea Lab Data Result diagrams: 10/23/20 11:38 10/23/20 11:38 Labs: Lab Results 10/23/20 10/23/20 10/23/20 Range/Units 11:38 11:38 11:38 WBC 27.3 H (4.5-11.0) X10^3/uL RBC 4.17 (4.0-5.2) X10^6/uL Hgb 11.6 L (12.0-16.0) g/dL Hct 36.4 (36-46) % MCV 87.3 (80-100) fL MCH 27.7 (26-34) PG MCHC 31.8 (30-36) % RDW 15.4 H (11.6-14.8) % Plt Count 367 (150-400) X10^3/uL Neut % (Auto) 87.6 H (50-75) % Lymph % (Auto) 4.1 L (25-40) % [place] % (Auto) 7.6 (3-14) % Eos % (Auto) 0.1 L (2-4) % Baso % (Auto) 0.6 (0-2) % Neut # (Auto) 74674 H (1772-7423) /uL Lymph # (Auto) 1100 (2128-7922) /uL [place] # (Auto) 2100 H (0-900) /uL Eos # (Auto) 0 (0-450) /uL Baso # (Auto) 200 H (0-100) /uL Sodium 135 L (137-145) mmol/L Potassium 5.9 H (3.4-5.1) mmol/L Chloride 108 H (98-107) mmol/L Carbon Dioxide 17 L (22-32) mmol/L BUN 63 H (7-17) mg/dL Creatinine 3.81 H (0.52-1.04) mg/dL Estimated GFR 11.3 L (>60) mL/min BUN/Creatinine Ratio 16.5 (6-22) Glucose 174 H (80-110) mg/dL Lactate (0.7-2.1) mmol/L Calcium 10.2 (8.4-10.2) mg/dL Total Bilirubin 0.5 (0.2-1.3) mg/dL AST 23 (14-36) IU/L ALT 26 (<35) IU/L Alkaline Phosphatase 117 (38-126) U/L Total Protein 7.7 (6.3-8.2) g/dL Albumin 3.7 (3.5-5.0) g/dL Globulin 4.0 (1.7-4.1) g/dL Albumin/Globulin Ratio 0.9 L (1.0-2.8) Lipase 84 (23-300) U/L Procalcitonin (<0.5) ng/mL Urine Color Urine Appearance Urine pH (4.5-8.0) Ur Specific [place] (1.000-1.035) Urine Protein (Negative) Urine Glucose (UA) (Negative) g/dL Urine Ketones (NEGATIVE) Urine Occult Blood (Negative) Urine Nitrate (Negative) Urine Bilirubin (NEGATIVE) Urine Urobilinogen (0.2) E.U./dL Ur Leukocyte Esterase (NEGATIVE) Urine RBC (0-5/HPF) Urine WBC (0-5/HPF) Amorphous Sediment Urine Bacteria (None) Urine Mucus (Negative) Ur Culture Indicated? SARS-CoV-2 (PCR) Negative (Negative) 08/21/21 08/21/21 08/21/21 Range/Units 11:38 11:38 11:38 WBC (4.5-11.0) X10^3/uL RBC (4.0-5.2) X10^6/uL Hgb (12.0-16.0) g/dL Hct (36-46) % MCV (80-100) fL MCH (26-34) PG MCHC (30-36) % RDW (11.6-14.8) % Plt Count (150-400) X10^3/uL Neut % (Auto) (50-75) % Lymph % (Auto) (25-40) % [place] % (Auto) (3-14) % Eos % (Auto) (2-4) % Baso % (Auto) (0-2) % Neut # (Auto) (5676-1383) /uL Lymph # (Auto) (5682-5994) /uL [place] # (Auto) (0-900) /uL Eos # (Auto) (0-450) /uL Baso # (Auto) (0-100) /uL Sodium (137-145) mmol/L Potassium (3.4-5.1) mmol/L Chloride (98-107) mmol/L Carbon Dioxide (22-32) mmol/L BUN (7-17) mg/dL Creatinine (0.52-1.04) mg/dL Estimated GFR (>60) mL/min BUN/Creatinine Ratio (6-22) Glucose (80-110) mg/dL Lactate 1.4 (0.7-2.1) mmol/L Calcium (8.4-10.2) mg/dL Total Bilirubin (0.2-1.3) mg/dL AST (14-36) IU/L ALT (<35) IU/L Alkaline Phosphatase (38-126) U/L Total Protein (6.3-8.2) g/dL Albumin (3.5-5.0) g/dL Globulin (1.7-4.1) g/dL Albumin/Globulin Ratio (1.0-2.8) Lipase (23-300) U/L Procalcitonin 0.73 H (<0.5) ng/mL Urine Color Yellow Urine Appearance Turbid Urine pH 5.5 (4.5-8.0) Ur Specific [place] 1.020 (1.000-1.035) Urine Protein 2+ H (Negative) Urine Glucose (UA) Negative (Negative) g/dL Urine Ketones Negative (NEGATIVE) Urine Occult Blood 3+ H (Negative) Urine Nitrate Negative (Negative) Urine Bilirubin Negative (NEGATIVE) Urine Urobilinogen 0.2 (0.2) E.U./dL Ur Leukocyte Esterase 2+ H (NEGATIVE) Urine RBC 5-10/hpf H (0-5/HPF) Urine WBC >100/hpf H (0-5/HPF) Amorphous Sediment 1+ Urine Bacteria Many (>30) H (None) Urine Mucus 1+ H (Negative) Ur Culture Indicated? Specimen cultured SARS-CoV-2 (PCR) (Negative) 10/23/20 Range/Units 14:29 WBC (4.5-11.0) X10^3/uL RBC (4.0-5.2) X10^6/uL Hgb (12.0-16.0) g/dL Hct (36-46) % MCV (80-100) fL MCH (26-34) PG MCHC (30-36) % RDW (11.6-14.8) % Plt Count (150-400) X10^3/uL Neut % (Auto) (50-75) % Lymph % (Auto) (25-40) % [place] % (Auto) (3-14) % Eos % (Auto) (2-4) % Baso % (Auto) (0-2) % Neut # (Auto) (6101-5783) /uL Lymph # (Auto) (4829-6840) /uL [place] # (Auto) (0-900) /uL Eos # (Auto) (0-450) /uL Baso # (Auto) (0-100) /uL Sodium (137-145) mmol/L Potassium (3.4-5.1) mmol/L Chloride (98-107) mmol/L Carbon Dioxide (22-32) mmol/L BUN (7-17) mg/dL Creatinine (0.52-1.04) mg/dL Estimated GFR (>60) mL/min BUN/Creatinine Ratio (6-22) Glucose (80-110) mg/dL Lactate (0.7-2.1) mmol/L Calcium (8.4-10.2) mg/dL Total Bilirubin (0.2-1.3) mg/dL AST (14-36) IU/L ALT (<35) IU/L Alkaline Phosphatase (38-126) U/L Total Protein (6.3-8.2) g/dL Albumin (3.5-5.0) g/dL Globulin (1.7-4.1) g/dL Albumin/Globulin Ratio (1.0-2.8) Lipase (23-300) U/L Procalcitonin (<0.5) ng/mL Urine Color Urine Appearance Urine pH (4.5-8.0) Ur Specific [place] (1.000-1.035) Urine Protein (Negative) Urine Glucose (UA) (Negative) g/dL Urine Ketones (NEGATIVE) Urine Occult Blood (Negative) Urine Nitrate (Negative) Urine Bilirubin (NEGATIVE) Urine Urobilinogen (0.2) E.U./dL Ur Leukocyte Esterase (NEGATIVE) Urine RBC (0-5/HPF) Urine WBC (0-5/HPF) Amorphous Sediment Urine Bacteria (None) Urine Mucus (Negative) Ur Culture Indicated? SARS-CoV-2 (PCR) Negative (Negative) Imaging Data CT scan - abdomen/pelvis: Radiologist's Impression: [address] [id number] Scan ReportSigned Patient: Latonia Bynum LMR#: [id number]: [id number]:[id number]/Sex: 85 / FDate of Service: 10/23/20Loc: EDAccession Number: [id number] Procedure: CT kidney ureter bladder (KUB) Ordering Provider: Solange Bustos D.O. PROCEDURE: CT KIDNEY URETER BLADDER (KUB) INDICATIONS: UTI, navarro ? draining, acute on chronic CAYETANO TECHNIQUE: Axial sections were acquired from the lung bases to the pubic symphysis. Coronal and sagittal reformats were performed. For radiation dose reduction, the following was used: automated exposure control, adjustment of mA and/or kV according to patient size. COMPARISON:[facility] [place], CT, CT KIDNEY URETER BLADDER (KUB), 07/02/2019, 12:03. [facility] [place], CT, CT ABDOMEN PELVIS WO CON, 09/05/2020, 11:23. FINDINGS: Image quality: Excellent. Lung bases: Unremarkable. Heart: No acute findings. URINARY: Previously seen hydronephrosis and hydroureter is not significantly changed. There is similar bilateral perinephric and periureteric fat stranding. Ureteral wall thickening and inflammatory change surrounding the ureter at the mid ureteral segment has worsened. The ureteral wall measures up to 1.2 centimeters on series 2, image 55 compared with up to 7 millimeters on 09/05/2020 examination at this same level. Findings may represent ureteritis although neoplasm is also a concern. ABDOMEN: Liver: Normal unenhanced CT appearance of the liver. Gallbladder: Cholelithiasis again noted. No findings of cholecystitis. Biliary ducts: Nondilated. Pancreas: Within normal limits. Spleen: Normal. Adrenal Glands: Right adrenal nodule and adreniform thickening of the left adrenal gland similar to the prior study. Stomach and Bowel: No abnormally dilated or thickened loop of bowel. No pericolonic or mesenteric inflammatory changes. Peritoneum: No abnormal intraperitoneal fluid. No free air. Ventral Wall: Unchanged midline ventral fat containing hernia at the level of the umbilicus. Abdominal Nodes: No enlarged retroperitoneal or mesenteric lymph nodes. Vessels: Aorta and inferior vena cava are normal in size. PELVIS: Pelvic Organs: Decompressed by a Navarro catheter. Not well evaluated otherwise. Atrophic ovaries and uterus. Pelvic Nodes: No threshold enlarged pelvic or inguinal lymph node. Miscellaneous: No inguinal hernias are seen. Bones: Unremarkable. IMPRESSION: Severe bilateral hydronephrosis and moderate bilateral hydroureter, not significantly changed from most recent comparison study performed September 2020. Focus of ureteral thickening and periureteric fat stranding has worsened when compared with the prior study, with increased ureteral wall thickening. This is likely due to ureteral right is although an underlying ureteral neoplasm cannot be strictly excluded. Navarro catheter is in appropriate position within the urinary bladder which is entirely decompressed. Dictated by: Shawn Alcocer M.D. on 10/23/2020 at 13:26 Approved by: Shawn Alcocer M.D. on 10/23/2020 at 13:32 MDM Narrative Medical decision making narrative: An 85-year-old female comes with complaint for catheter not draining properly. Patient's labs do show a bump in her creatinine. She is milky colored urine which is positive on UA. She has urine culture from 09/26/2020 which she states she finished antibiotics she is uncertain of the name I suspect that Cipro. On urine culture she had [id number]: Which was pansensitive and Pseudomonas which was sensitive except to Rocephin and imipenem. Patient has a significant leukocytosis, she is not tachycardic but her blood pressures are the 100-90 systolic range. Patient's creatinine today is 3.81 up from 2.53 earlier in September with a potassium of 5.9, sodium of 135 and a CO2 of 17. Patient's LFTs are negative. Lactate is normal. Procalcitonin and blood cultures were added on and urine culture from today is pending. Patient was started on antibiotics. Patient case was discussed and she is accepted by Dr. Pappas. Discharge Plan Departure Patient Disposition: Admitted As Inpatient Clinical Impression: Acute on chronic kidney failure, Acute UTI Admit Date/Time: 10/23/20 15:00 Admit Provider: Sarahy Pappas
[2020-10-23] MEDS: levoFLOXacin 750 MG/150 ML PIGGYBACK 100 MG IV ×2 (12:49→20:59)
[2020-10-23 12:51] LABS: Lactate (Lactic Acid) 1.4 mmol/L (0.7-2.1)
[2020-10-23 13:09] LABS: Procalcitonin 0.73 ng/mL (<0.5)
[2020-10-23] MEDS: PIPERACILLIN/TAZO 4.5 GM in SODIUM CHLORIDE 0.9% 100 ML 200 ML IV (14:38)
--- NOTE | 2020-10-23 15:24 | PC.NURSE ---
tried to call nursing home physician and she is in report and will call back [phone]
[2020-10-23 15:33] LABS: COVID19 - ADMIT (NP swab/PCR) Negative (Negative)
[2020-10-23] MEDS: SODIUM CHLORIDE 0.9% 1,000 ML 500 ML IV (15:38)
--- NOTE | 2020-10-23 18:32 | P.HP_ITS ---
History of Present Illness History of Present Illness Date Patient Seen: 10/23/20 Time Patient Seen: 18:32 Chief complaint: cath not draining correct/ vomitting Narrative: [address] Joshi's admitted from the ED secondary to her catheter not draining correctly. Her indwelling catheter has been plagued with problems since placement for obstructive uropathy and hydronephrosis. The catheter did resolve the urinary retention issue but she has had problems with it not fitting her well and recently had UTIs on 06/29/20, 09/05/20, and 09/26/20 that required inpatient hospitalization. Urine cultures during this period have grown morganella morganii (09/01/20), diamond parapsilosis/Pseudomonas aeruginosa (09/14/20), and e-coli/pseduomonas, all sensitive to ciprofloxacin. For the diamond, she had a 7 day course of diflucan. Initially, her elderly was changing her catheter and there was concern about him being able to properly follow sterile technique. After her last discharge, home health was arranged to do the catheter changes. Dr. Cristian sherman, urology consulting but she has not seen him since her last admission. What brought her to the ED today is that she felt some generalized abdominal discomfort in the right upper quadrant region and right flank, more than usual, and had some vomiting yesterday. Due to the nausea, she was unable to take her usual medications in the last 24 hours. She had just 100 cc of output from her Navarro catheters since 7:00 a.m. this morning, 12 hours ago, and she had to milk the catheter to get the urine out. She felt there was a maybe a blockage in the navarro catheter itself. Prior to that, she did not have any output for several hours. CT KUB in the ED showed that the Navarro catheter was in the appropriate place and that the bladder was fully decompressed but there was ongoing severe bilateral hydronephrosis and moderate bilateral hydroureter with no significant change from 09/21/2020 when she was last imaged. However, there was a focus of ureteral thickening and periureteric fat stranding that had worsened when compared with the prior study, with increased ureteral wall thickening. Radiologist thought that this was likely due to ureteritis but that an underlying ureteral neoplasm could not be excluded. Creatinine is elevated at 3.81. Her baseline in the last 4 months has been approximately 2.0. Her last creatinine on 09/27/2020 was 2.53. Vital signs in the ED included a temperature of 97.4 F, heart rate 67, respirations 20, blood pressure 104/77, O2 saturation 97% on room air. Pertinent laboratory values included a white count of 27.3, elevated potassium at 5.9, elevated chloride at 108, low bicarb at 17, elevated BUN at 63, and an elevated glucose at 174. Proc alcitonin also elevated at 0.73. COVID notably negative. She was given 2500 cc of normal saline, levofloxacin 750 mg IV x1 and Zosyn 4.5 mg IV x1 prior to transfer to the floor. Denies any current back or flank pain. No shortness of breath. This is her fourth inpatient hospitalization in 4 months. Past medical history: Diabetes mellitus type 2, non insulin dependent Hyperlipidemia Hypothyroidism Thyroid nodule Paroxysmal atrial fibrillation First-degree AV block Hypertension Morbid obesity Obstructive sleep apnea, on CPAP Detrusor instability Overflow incontinence Nephrolithiasis Chronic urinary tract infections Indwelling catheter Atrophic vaginitis Peptic ulcer disease with GI bleed Right-sided septal nasal polyp with epistaxis Degenerative joint disease Anxiety/ depression Past surgical history: Hip replacement, 2004 Lumbar disc surgery x 2 Lithotripsy, 10/22 Cystoscopy with Botox, 05/23 Gastric bypass Mastectomy Thyroidectomy Bilateral cataracts Nephrostomy Family history: Mother: Heart disease, hypertension, diabetes mellitus type 2 Father: Epilepsy Siblings: Diabetes mellitus type 2 Social history: to [employer], retired. Sixteen years of education. Raised family in the [facility], moved to [facility] in 2000. Patient History Medical History Anxiety Calculus of kidney Depression GI bleed Gross hematuria History of recurrent UTI (urinary tract infection) HTN (hypertension) Hypothyroid Nephrolithiasis Noncompliant neurogenic bladder Obstructive uropathy MORGAN on CPAP Peptic ulcer disease Pneumothorax Postmenopausal atrophic vaginitis Ureteral obstruction, left Urinary incontinence, mixed Surgical History H/O gastric bypass H/O mastectomy History of back surgery History of hip replacement History of thyroidectomy Hx of bilateral cataract extraction (2012) Hx of cystoscopy (08/04/19) Nephrostomy status Family & Social History Family History Father Seizures Mother Heart disease Diabetes mellitus Brother No significant medical problems Sister Diabetes mellitus Grandmother Diabetes mellitus Social History: household members spouse Safety & Behavioral: Feels Safe in Current Yes Environment Been Physically Hurt or No Threatened By a Person Suicidal Ideation Description None Suicide Plan Description No Plan Tobacco & Substance use: Smoking Status Never smoker alcohol intake never alcohol intake frequency other Substance Use Type does not use Meds Home Medications and Allergies Home Medications Medication Instructions Recorded Confirmed Type aspirin 81 mg chewable tablet 81 mg PO QDAY #0 01/31/16 10/23/20 History citalopram 10 mg tablet 10 mg PO QDAY #0 01/31/16 10/23/20 History gabapentin 300 mg capsule 300 mg PO TID #0 01/31/16 10/23/20 History (Neurontin) levothyroxine 100 mcg tablet 100 mcg PO QAM #0 01/31/16 10/23/20 History metoprolol succinate 50 mg 50 mg PO DAILY 08/04/19 10/23/20 History tablet,extended release 24 hr triamcinolone acetonide 0.1 % 1 applic TOPICAL PRN PRN 09/05/20 10/23/20 History topical cream tramadol 50 mg tablet 50 mg PO Q6H PRN #10 tab 09/06/20 10/23/20 Rx ciprofloxacin HCl 500 mg tablet 500 mg PO BID #10 tab 09/27/20 10/23/20 Rx fluconazole 150 mg tablet 150 mg PO DAILY #1 tab 09/27/20 10/23/20 Rx (Diflucan) ospemifene 60 mg tablet (Osphena) See Rx Instructions .ROUTE 10/18/20 10/23/20 Rx .COMPLEX #90 tab Allergies Allergy/AdvReac Type Severity Reaction Status Date / Time alcohol Allergy Severe Rash, Verified 10/23/20 11:20 facial swelling amphotericin B AdvReac Severe Jittery, Verified 10/23/20 11:20 [AMPHOTERICIN B] tremors Exam Vital Signs (past 8 hours): - 10/23/20 11:20 10/23/20 12:20 10/23/20 12:30 Temperature 97.4 F L Pulse Rate 67 72 66 Respiratory Rate 20 Blood Pressure 104/77 94/57 L Pulse Oximetry 97 97 98 10/23/20 13:11 10/23/20 13:30 10/23/20 14:00 Temperature Pulse Rate 71 66 68 Respiratory Rate Blood Pressure 93/55 L 97/51 L Pulse Oximetry 99 97 100 10/23/20 14:30 10/23/20 14:32 10/23/20 15:00 Temperature Pulse Rate 77 64 63 Respiratory Rate Blood Pressure 112/51 L 102/55 L Pulse Oximetry 99 100 99 10/23/20 15:30 10/23/20 16:50 Temperature 96.1 F L Pulse Rate 70 75 Respiratory Rate 18 Blood Pressure 102/50 L 103/65 Pulse Oximetry 98 96 Oxygen Delivery Method Room Air Narrative Exam Narrative: GENERAL: Alert and oriented, appearing stated age and in no a cute distress. HEENT: Head normocephalic/atraumatic. LUNGS: Clear to ausculation bilaterally, no wheezes, rhonchi or rales. CV: Normal S1 and S2 with regular rate and rhythm, no audible murmurs, rubs or gallops. ABDOMEN: Soft, tender in RLQ and right flank. Non-distended, no organomegaly. Positive bowel sounds. No CVA tenderness. : Navarro in place. EXTREMITIES: No clubbing, cyanosis, or edema. NEURO: Cranial nerves II through XII grossly intact, no focal deficits. PSYCH: Alert and oriented x 3. SKIN: No concerning lesions. Objective Labs Result Diagrams: 10/23/20 11:38 10/23/20 11:38 Labs: Laboratory Results - last 24 hr 10/23/20 10/23/20 10/23/20 11:38 11:38 11:38 WBC 27.3 H RBC 4.17 Hgb 11.6 L Hct 36.4 MCV 87.3 MCH 27.7 MCHC 31.8 RDW 15.4 H Plt Count 367 Neut % (Auto) 87.6 H Lymph % (Auto) 4.1 L [place] % (Auto) 7.6 Eos % (Auto) 0.1 L Baso % (Auto) 0.6 Neut # (Auto) 93373 H Lymph # (Auto) 1100 [place] # (Auto) 2100 H Eos # (Auto) 0 Baso # (Auto) 200 H Sodium 135 L Potassium 5.9 H Chloride 108 H Carbon Dioxide 17 L BUN 63 H Creatinine 3.81 H Estimated GFR 11.3 L BUN/Creatinine Ratio 16.5 Glucose 174 H Lactate Calcium 10.2 Total Bilirubin 0.5 AST 23 ALT 26 Alkaline Phosphatase 117 Total Protein 7.7 Albumin 3.7 Globulin 4.0 Albumin/Globulin Ratio 0.9 L Lipase 84 Procalcitonin Urine Color Urine Appearance Urine pH Ur Specific [place] Urine Protein Urine Glucose (UA) Urine Ketones Urine Occult Blood Urine Nitrate Urine Bilirubin Urine Urobilinogen Ur Leukocyte Esterase Urine RBC Urine WBC Amorphous Sediment Urine Bacteria Urine Mucus Ur Culture Indicated? SARS-CoV-2 (PCR) Negative 10/23/20 10/23/20 10/23/20 11:38 11:38 11:38 WBC RBC Hgb Hct MCV MCH MCHC RDW Plt Count Neut % (Auto) Lymph % (Auto) [place] % (Auto) Eos % (Auto) Baso % (Auto) Neut # (Auto) Lymph # (Auto) [place] # (Auto) Eos # (Auto) Baso # (Auto) Sodium Potassium Chloride Carbon Dioxide BUN Creatinine Estimated GFR BUN/Creatinine Ratio Glucose Lactate 1.4 Calcium Total Bilirubin AST ALT Alkaline Phosphatase Total Protein Albumin Globulin Albumin/Globulin Ratio Lipase Procalcitonin 0.73 H Urine Color Yellow Urine Appearance Turbid Urine pH 5.5 Ur Specific [place] 1.020 Urine Protein 2+ H Urine Glucose (UA) Negative Urine Ketones Negative Urine Occult Blood 3+ H Urine Nitrate Negative Urine Bilirubin Negative Urine Urobilinogen 0.2 Ur Leukocyte Esterase 2+ H Urine RBC 5-10/hpf H Urine WBC >100/hpf H Amorphous Sediment 1+ Urine Bacteria Many (>30) H Urine Mucus 1+ H Ur Culture Indicated? Specimen cultured SARS-CoV-2 (PCR) 10/23/20 14:29 WBC RBC Hgb Hct MCV MCH MCHC RDW Plt Count Neut % (Auto) Lymph % (Auto) [place] % (Auto) Eos % (Auto) Baso % (Auto) Neut # (Auto) Lymph # (Auto) [place] # (Auto) Eos # (Auto) Baso # (Auto) Sodium Potassium Chloride Carbon Dioxide BUN Creatinine Estimated GFR BUN/Creatinine Ratio Glucose Lactate Calcium Total Bilirubin AST ALT Alkaline Phosphatase Total Protein Albumin Globulin Albumin/Globulin Ratio Lipase Procalcitonin Urine Color Urine Appearance Urine pH Ur Specific [place] Urine Protein Urine Glucose (UA) Urine Ketones Urine Occult Blood Urine Nitrate Urine Bilirubin Urine Urobilinogen Ur Leukocyte Esterase Urine RBC Urine WBC Amorphous Sediment Urine Bacteria Urine Mucus Ur Culture Indicated? SARS-CoV-2 (PCR) Negative Assessment & Plan Assessment & Plan narrative: 85 year old female with poorly fitting indwelling urinary catheter, recurrent UTIs, severe bilateral hydronephrosis and moderate bilateral hydroureter, and four inpatient hospitalizations in 4 months. 1. Complicated urinary tract infection, acute on chronic, risk for urosepsis Plan: Urine culture has been sent. Will continue levofloxacin and zosyn and narrow coverage when culture returns. Patient is failing home care, may need permanent placement in SNF after this hospitalization or definitive treatment with catheter, if such treatment is possible/available. Will consult urology. 2. Acute on chronic kidney disease, stage 4, likely exacerbated by UTI, acute dehydration, and obstructive uropathy Plan: Gently rehydrating with IVF. Will continue to follow labs, daily weights and I/Os carefully. 3. Obstructive uropathy, overflow incontinence,and detrusor instability with indwelling Navarro catheter Plan: Continue routine navarro managment. Drs. Cho and Carissa consulting in the outpatient setting. Will consult on-call urology in the morning to assess her Navarro catheter and CT KUB. 4. Electrolyte derangement, acute Plan: Likely secondary to acute on chronic kidney disease, will treat underlying disease and trend labs. 5. Dibetes mellitus type 2 Plan: Diabatic diet. 6. Hematuria, chronic Plan: Likely due to infection; KUB negative for nephrolithiasis. 7. Paroxysmal atrial fibrillation with first-degree AV block, chronic Plan: Continue rate control with metoprolol 50 mg p.o. q.day, but holding for now due to hypotension. Continue aspirin. Telemetry. 8. Hypertension, chronic Plan: Will hold home metoprolol due to hypotension. Rehydrating and will trend vital signs and labs. Will continue to hold if BP <120/80. 9. Hyperlipidemia, chronic Plan: Continue home atorvastatin 40 mg PO qhs. 10. Hypothyroidism, chronic Plan: Continue home levothyroxine 100 mcg p.o. q.a.m. Will update TSH. 11. MORGAN, chronic Plan: Continue home CPAP. 12. Morbid obesity, chronic Plan: Patient is at risk for delayed and poor healing secondary to weight. 13. Chronic pain syndrome Plan: Continue home tramadol and gabapentin. 14. Atrophic vaginitis Plan: Continue home ospemifene. 15. Depression/anxiety Plan: Continue home citalopram. Code: DNR / DNI DVT prophylaxis: SCDs, further anticoagulation contraindicated secondary to history of epistaxis and history of GI bleed COVID: Negative Disposition: Anticipate 2 nights. Quality VTE Deep Vein Thrombosis/Pulmonary Embolism Present on Admission: No
[2020-10-23] MEDS: SODIUM CHLORIDE 0.45% 1,000 ML 100 ML IV ×2 (20:59)
[2020-10-23] MEDS: GABAPENTIN 300 MG CAPSULE PO (20:59)
[2020-10-23] MEDS: CITALOPRAM 10 MG TABLET PO (20:59)
[2020-10-23] MEDS: ASPIRIN 81 MG CHEW TAB PO (20:59)
--- NOTE | 2020-10-23 22:34 | PC.NURSE ---
1650: arrived to floor via stretcher. a/o, pleasnt, she easily transferred w/ CGA to bed. brought own FWW from home/purse. chronic navarro is patent, cloudy dark mima urine noted in navarro. wet pull-up and pants removed, pants placed in belongings bag in closet. arrived w/ fluids, PIV to RUE. reports slight pain to back, kidneys. and bladder aches sometimes. reports feeling a bit better since receiving fluids and antibiotics in ER. WBC 27.3 oriented to room, call light. orders for tele, reg diet.
[2020-10-23] MEDS: PIPERACILLIN/TAZO 2.25 GM in SODIUM CHLORIDE 0.9% 100 ML 25 ML IV (22:52)
[2020-10-23] MEDS: ONDANSETRON 4 MG/2 ML INJ IV (23:57)
[2020-10-24] VITALS (7 sets, daily range): BP systolic 91–135; BP diastolic 52–64; PULSE 65–77; RESP 16–20; TEMP 36.1–37.2; O2SAT 96–99
--- NOTE | 2020-10-24 01:50 | PC.NURSE ---
Addendum entered by Jess Gutierrez R.N. 10/24/20 03:34: Noted that BP was 97/56 but has been trending low. Original Note: Patient is alert and oriented. Breath sounds CTA with RA sat of 96%; on continuous oximetry per MD order. HRR with telemetry reading of SR. Did complain of some nausea at time of assessment but without vomiting; medicated with Zofran at that time. BT present and abdomen is soft; reports diarrhea prior to admission. Indwelling catheter is patent; urine is clear yellow. Complained of 3-4/10 right flank pain but declined offer of pain medication. Is able to turn herself in bed. Gait not assessed but evening RN reported she is up with walker and SBA. Had bilateral calf SCD's on at shift change but requested they be removed when assessement done. Discussed purpose of SCD's and patient verbalizes understanding but still wanted them off so reminded to ankle wave when awake. Chronic tingling in left foot. Fall risk score is high and bed alarm is activated.
[2020-10-24] MEDS: ZOLPIDEM 5 MG TABLET 2.5 MG PO (02:23)
[2020-10-24 05:09] LABS: Add Manual Diff / Slide Review NO; Basophils Absolute Auto 100 /uL (0-100); Basophils Percent Auto 0.4 % (0-2); Eosinophils Absolute Auto 100 /uL (0-450); Eosinophils Percent Auto 0.4 % (2-4); Hematocrit 30.9 % (36-46); Hemoglobin 9.9 g/dL (12.0-16.0); Lymphocytes Absolute Auto 800 /uL (1100-4500); Lymphocytes Percent Auto 3.8 % (25-40); Mean Corpuscular Hemoglobin 27.8 PG (26-34); Mean Corpuscular Volume 86.9 fL (80-100); Monocytes Absolute Auto 2000 /uL (0-900); Neutrophils Absolute Auto 19100 /uL (1500-7000); Neutrophils Percent Auto 86.4 % (50-75); Platelet Count 279 X10^3/uL (150-400); Red Blood Cell Count 3.56 X10^6/uL (4.0-5.2); Red Cell Distribution Width 15.6 % (11.6-14.8); White Blood Cell Count 22.1 X10^3/uL (4.5-11.0)
[2020-10-24 05:26] LABS: Alanine Aminotransferase 26 IU/L (<35); Albumin 2.8 g/dL (3.5-5.0); Albumin Globulin Ratio 0.8 (1.0-2.8); Alkaline Phosphatase 93 U/L (38-126); Aspartate Aminotransferase 30 IU/L (14-36); BUN Creatinine Ratio 16.3 (6-22); Bilirubin Total 0.3 mg/dL (0.2-1.3); Blood Urea Nitrogen 61 mg/dL (7-17); Carbon Dioxide 15 mmol/L (22-32); Chloride 112 mmol/L (98-107); Estimated Glomerular Filt Rate 11.5 mL/min (>60); Globulin 3.5 g/dL (1.7-4.1); Glucose 112 mg/dL (80-110); HEMOLYSIS < 15 (0-50); Sodium 133 mmol/L (137-145); Total Protein 6.3 g/dL (6.3-8.2)
[2020-10-24] MEDS: LEVOTHYROXINE 100 MCG TABLET PO (06:24)
[2020-10-24] MEDS: PIPERACILLIN/TAZO 2.25 GM in SODIUM CHLORIDE 0.9% 100 ML 25 ML IV (06:24)
[2020-10-24] MEDS: SODIUM CHLORIDE 0.45% 1,000 ML 100 ML IV (08:34)
--- NOTE | 2020-10-24 08:45 | P.PN_ITS ---
Subjective Subjective Date Patient Seen: 10/24/20 Time Patient Seen: 08:46 Interval history: Patient is feeling okay this morning. Pain has improved but persists on her right side. Still was not able to sleep very well last night. Tolerating diabetic diet this morning with no nausea or vomiting. Compliant with PT. Exam Vital Signs (past 8 hours): - 10/24/20 06:30 10/24/20 08:25 Temperature 98.2 F 98.3 F Pulse Rate 73 65 Respiratory Rate 20 18 Blood Pressure 111/64 135/59 L Pulse Oximetry 96 97 Oxygen Delivery Method Room Air Oxygen Flow Rate 0 Narrative Exam Narrative: GENERAL: Alert and oriented, appearing stated age and in no acute distress. HEENT: Head normocephalic/atraumatic. LUNGS: Clear to ausculation bilaterally, no wheezes, rhonchi or rales. CV: Normal S1 and S2 with regular rate and rhythm, no audible murmurs, rubs or gallops. ABDOMEN: Soft, tender in RLQ and right flank. Non-distended, no organomegaly. Positive bowel sounds. No CVA tenderness. : Navarro in place. EXTREMITIES: No clubbing, cyanosis, or edema. NEURO: Cranial nerves II through XII grossly intact, no focal deficits. PSYCH: Alert and oriented x 3. SKIN: No concerning lesions. Objective Labs Result Diagrams: 10/24/20 04:45 10/24/20 04:45 Labs: Laboratory Results - last 24 hr 10/23/20 10/23/20 10/23/20 11:38 11:38 11:38 WBC 27.3 H RBC 4.17 Hgb 11.6 L Hct 36.4 MCV 87.3 MCH 27.7 MCHC 31.8 RDW 15.4 H Plt Count 367 Neut % (Auto) 87.6 H Lymph % (Auto) 4.1 L [place] % (Auto) 7.6 Eos % (Auto) 0.1 L Baso % (Auto) 0.6 Neut # (Auto) 11456 H Lymph # (Auto) 1100 [place] # (Auto) 2100 H Eos # (Auto) 0 Baso # (Auto) 200 H Sodium 135 L Potassium 5.9 H Chloride 108 H Carbon Dioxide 17 L BUN 63 H Creatinine 3.81 H Estimated GFR 11.3 L BUN/Creatinine Ratio 16.5 Glucose 174 H Lactate Calcium 10.2 Total Bilirubin 0.5 AST 23 ALT 26 Alkaline Phosphatase 117 Total Protein 7.7 Albumin 3.7 Globulin 4.0 Albumin/Globulin Ratio 0.9 L Lipase 84 Procalcitonin Urine Color Urine Appearance Urine pH Ur Specific [place] Urine Protein Urine Glucose (UA) Urine Ketones Urine Occult Blood Urine Nitrate Urine Bilirubin Urine Urobilinogen Ur Leukocyte Esterase Urine RBC Urine WBC Amorphous Sediment Urine Bacteria Urine Mucus Ur Culture Indicated? SARS-CoV-2 (PCR) Negative 10/23/20 10/23/20 10/23/20 11:38 11:38 11:38 WBC RBC Hgb Hct MCV MCH MCHC RDW Plt Count Neut % (Auto) Lymph % (Auto) [place] % (Auto) Eos % (Auto) Baso % (Auto) Neut # (Auto) Lymph # (Auto) [place] # (Auto) Eos # (Auto) Baso # (Auto) Sodium Potassium Chloride Carbon Dioxide BUN Creatinine Estimated GFR BUN/Creatinine Ratio Glucose Lactate 1.4 Calcium Total Bilirubin AST ALT Alkaline Phosphatase Total Protein Albumin Globulin Albumin/Globulin Ratio Lipase Procalcitonin 0.73 H Urine Color Yellow Urine Appearance Turbid Urine pH 5.5 Ur Specific [place] 1.020 Urine Protein 2+ H Urine Glucose (UA) Negative Urine Ketones Negative Urine Occult Blood 3+ H Urine Nitrate Negative Urine Bilirubin Negative Urine Urobilinogen 0.2 Ur Leukocyte Esterase 2+ H Urine RBC 5-10/hpf H Urine WBC >100/hpf H Amorphous Sediment 1+ Urine Bacteria Many (>30) H Urine Mucus 1+ H Ur Culture Indicated? Specimen cultured SARS-CoV-2 (PCR) 10/23/20 10/24/20 10/24/20 14:29 04:45 04:45 WBC 22.1 H RBC 3.56 L Hgb 9.9 L Hct 30.9 L MCV 86.9 MCH 27.8 MCHC 32.0 RDW 15.6 H Plt Count 279 Neut % (Auto) 86.4 H Lymph % (Auto) 3.8 L [place] % (Auto) 9.0 Eos % (Auto) 0.4 L Baso % (Auto) 0.4 Neut # (Auto) 46032 H Lymph # (Auto) 800 L [place] # (Auto) 2000 H Eos # (Auto) 100 Baso # (Auto) 100 Sodium 133 L Potassium 6.0 H Chloride 112 H Carbon Dioxide 15 L BUN 61 H Creatinine 3.75 H Estimated GFR 11.5 L BUN/Creatinine Ratio 16.3 Glucose 112 H Lactate Calcium 9.0 Total Bilirubin 0.3 AST 30 ALT 26 Alkaline Phosphatase 93 Total Protein 6.3 Albumin 2.8 L Globulin 3.5 Albumin/Globulin Ratio 0.8 L Lipase Procalcitonin Urine Color Urine Appearance Urine pH Ur Specific [place] Urine Protein Urine Glucose (UA) Urine Ketones Urine Occult Blood Urine Nitrate Urine Bilirubin Urine Urobilinogen Ur Leukocyte Esterase Urine RBC Urine WBC Amorphous Sediment Urine Bacteria Urine Mucus Ur Culture Indicated? SARS-CoV-2 (PCR) Negative [facility] Medical History Anxiety Calculus of kidney Depression GI bleed Gross hematuria History of recurrent UTI (urinary tract infection) HTN (hypertension) Hypothyroid Nephrolithiasis Noncompliant neurogenic bladder Obstructive uropathy MORGAN on CPAP Peptic ulcer disease Pneumothorax Postmenopausal atrophic vaginitis Ureteral obstruction, left Urinary incontinence, mixed Surgical History H/O gastric bypass H/O mastectomy History of back surgery History of hip replacement History of thyroidectomy Hx of bilateral cataract extraction (2012) Hx of cystoscopy (08/04/19) Nephrostomy status Family History Father Seizures Mother Heart disease Diabetes mellitus Brother No significant medical problems Sister Diabetes mellitus Grandmother Diabetes mellitus Social History household members: spouse Smoking Status: Never smoker alcohol intake: never eating out: rarely or never Type(s) of exercise: none Assessment & Plan Assessment & Plan narrative: 85 year old female with poorly fitting indw elling urinary catheter, recurrent UTIs, severe bilateral hydronephrosis and moderate bilateral hydroureter, and four inpatient hospitalizations in 4 months, HD#1. 1. Complicated urinary tract infection, acute on chronic, risk for urosepsis -Preliminary urine culture showing gram negative rods. Plan: Will continue levofloxacin and zosyn and narrow coverage when final culture returns. Patient is failing home care and needs definitive treatment with ureteral stent or nephrostomy tube to relieve her urinary obstruction. May need discussion of suprapubic catheter as navarro does not seem to be working; this is her fourth inpatient stay for essentially the same complaint in the last 4 months. Discussed with on-call urologist today, she advised stent/nephrostomy tube as soon as possible. Will attempt transfer today for same. 2. Acute on chronic kidney disease, stage 4, likely exacerbated by UTI, acute dehydration, and obstructive uropathy, worsened Plan: Patient has poor output and is in a positive fluid balance, I/O: 2940/600 since admission, + 2340 fluid balance. Creatinine is showing only the slightest of improvements, 3.81 to 3.75. Potassium trending up from 5.9 to 6.0 this morning. Have shut off IVF at this point and consulted on-call filler sifter machine. Manufacturing Quality Engineer recommended urgent lowering of the potassium with kayexalate 15 mg PO up to tid with serial labs while awaiting urgent decompression of her urinary obtruction with a ureteral stent or nephrostomy tube. He did not think that further fluid challenges or lasix would improve the electrolytes or creatinine if there is obstruction and should be avoided at this time. If her potassium is unable to be lowered with kayexalate, advised additional medical management with 10 units of insulin with 1 amp of D50; however, this would only temporize the problem and ultimately, she may need urgent, short term dialysis if potassium is not able to be lowered. Advised transfer to tertiary care facility now for higher level of care including possible dialysis and urgent urology/IR procedures. Patient is at risk of wide complete tachycarida, which is especially concerning in the setting of her atrial fibrillation. Unfortunately, her atrial fibrillation is not currently being medically rate-controlled due to her hypotension but she is currently in sinus rhythm. Due to her history of GI bleed and severe epistaxis, she is not a candidate for anticoagulation. 3. Obstructive uropathy, overflow incontinence,and detrusor instability with indwelling Navarro catheter Plan: Please see above. 4. Electrolyte derangement, acute, worsening Plan: Secondary to acute on chronic kidney disease, please see above. 5. Dibetes mellitus type 2 Plan: Diabatic diet. 6. Hematuria, chronic Plan: Likely due to infection/inflammation; KUB negative for nephrolithiasis. 7. Paroxysmal atrial fibrillation with first-degree AV block, chronic Plan: Continue rate control with metoprolol 50 mg p.o. q.day, but holding for now due to hypotension. Continue aspirin. Telemetry. 8. Hypertension, chronic Plan: Will hold home metoprolol due to hypotension. Rehydrating and will trend vital signs and labs. Will continue to hold if BP <120/80. 9. Hyperlipidemia, chronic Plan: Continue home atorvastatin 40 mg PO qhs. 10. Hypothyroidism, chronic Plan: Continue home levothyroxine 100 mcg p.o. q.a.m. Will update TSH. 11. MORGAN, chronic Plan: Continue home CPAP. 12. Morbid obesity, chronic Plan: Patient is at risk for delayed and poor healing secondary to weight. 13. Chronic pain syndrome Plan: Continue home tramadol and gabapentin. 14. Atrophic vaginitis Plan: Continue home ospemifene. 15. Depression/anxiety Plan: Continue home citalopram. Code: DNR / DNI DVT prophylaxis: SCDs, further anticoagulation contraindicated secondary to history of epistaxis and history of GI bleed COVID: Negative Disposition: Will attempt transfer to tertiary care center today. Greater than 90 minutes was spent in physician prolonged services from 14:15 to 15:57. This included evaluating the status of the patient, communicating with the patient, consulting with specialists, and directing the team attending the patient. Quality VTE Deep Vein Thrombosis/Pulmonary Embolism Present on Admission: No
[2020-10-24] MEDS: ASPIRIN 81 MG CHEW TAB PO (08:46)
[2020-10-24] MEDS: GABAPENTIN 300 MG CAPSULE PO ×3 (08:46→20:24)
[2020-10-24] MEDS: CITALOPRAM 10 MG TABLET PO (08:46)
--- NOTE | 2020-10-24 09:12 | CM.DANOTE ---
Addendum entered by BIANCA Condon 10/24/20 15:44: Per , she discussed with on-call urologist today, advised stent/nephrostomy tube as soon as possible. MD Will attempt transfer today for higher level of care. BF Addendum entered by BIANCA Condon 10/24/20 11:00: ADD: Per PT, pt ambulated well with walker and seems to be at baseline and recommend safe d/c home with [facility] from a mobility stand point. Pt states that she also has a CG that comes a few times a week to set up meals for pt and spouse. BF Original Note: Patient is an 85 yo female who was admitted on 10/23/20 for Cath issues/Vomiting. Pt has [facility] and [employer] for insurance and her PCP is Dr. Joshi. EMR was reviewed. Per , pt with chronic indwelling cath with ongoing complications and four hospitalizations in the past 4 months for similar cath issues. Urologist Consult ordered and pending. Met with patient this AM explained CM/SW role. Patient alert and oriented. Patient reports that she resides on [address] with her spouse/Melquiades who has increased memory issues and is currently open with [facility] for RN/PT/OT. Patient with history of indwelling catheter under care of Dr. Cho. Patient reports that she does have manager long term care insurance and that her daughter/Camila is assisting her with finding out what they will cover. Pt currently private pays a local lady on [address] to come 5 mornings a week for a couple house to help pt get up and going with my day. Pt feels this has been very helpful but is realizing that she may need increased assist, at least for a while. Pt states that her Dtr Camila lives [place] of [place] and her two adult sons live near [facility]. Pt states she and her are considering talking to their adult children about Assisted Living near them for jail plan in the future. SW encouraged her to discuss this with sons during her admission and request that they start touring and looking into facilities soon rather than later for future planning needs and pt acknowledges understanding. Pt states 10 years ago she went to SNF after back surgery when she needed more time to recover prior to safe d/c home. Pt aware that SNF may be needed at her d/c this time and SW discussed needing to wait to see what Medicare would cover as UR currently determining OBS vs Inpt. SW faxed H&P to [facility] to review. Plan: SW to follow closely for Urologist consult and recommendations and therapies towards determining SNF vs home with [facility] and morning CG. BIANCA Condon Discharge Planning/Care Management Advanced directive, confirm from FAMILY Start: 10/23/20 16:47 Freq: Q24H Status: Active Protocol: Document 10/23/20 16:47 BV (Rec: 10/23/20 18:39 BV [id number]) Advance Directive, confirm on record Time 16:15 Person contacted Copy received No Copy received No Advanced directive available on record No CM Discharge Assessment Start: 10/24/20 09:10 Freq: Status: Active Protocol: Document 10/24/20 09:10 BF (Rec: 10/24/20 09:12 BF [id number]) Discharge Planning Assessment Assigned Road Design Engineer BIANCA Knapp Advance Directives? Yes Advance Directives on File Yes History Provided By Patient,Medical Record Has Patient been admitted in last 30 Yes days? Comment Last d/c from [facility] was 09/27/20 for [facility] hospitallar and d.c home with [facility]. Prior Living Arrangements House Household Members spouse Comment Spouse has dementia Type of transporation used prior to Relies on Others admit Independent with ADL's No: needs some senior living care Is patient alert and oriented? Yes Needs Assistance With Toileting,Managing Medications ,Home Chores / Shopping Caregiver for Another Yes: spouse has memory issues Community Services used prior to Physical Therapy,Occupational admission: Therapy,Home Health Nurse Comment Open with [facility] RN/PT/OT Comment uses 4WW: one for inside the house. another is more portable and goes easily in the car pt states. a third one for outside the house. Patient/Family Preference Long Term Facility,Home with Home Health Discharge Plan Long Term Facility Transportation Arrangement Family to provide transport if home vs Facility cabulance Whiteboard Updated in Patient Room with Yes name and ext. # of Road Design Engineer Review Status In Process Please Provide Date Initial DC 10/24/20 Assessment Was Performed Next Review Type Continued Stay Review
--- NOTE | 2020-10-24 10:49 | PT.IIE ---
Current Diagnoses Urinary tract infection, site not specified (10/23/20) Medical History (Last Reviewed 10/23/20 @ 12:58 by Solange Bustos DO) Anxiety Calculus of kidney Depression GI bleed Gross hematuria History of recurrent UTI (urinary tract infection) HTN (hypertension) Hypothyroid Nephrolithiasis Noncompliant neurogenic bladder Obstructive uropathy MORGAN on CPAP Peptic ulcer disease Pneumothorax Postmenopausal atrophic vaginitis Ureteral obstruction, left Urinary incontinence, mixed Physical Therapy Inpatient Evaluation/Re-Eval M1 PT/OT-IP Prior Functional Status Start: 10/24/20 08:44 Freq: NEEDED Status: Active Protocol: Document 10/24/20 10:49 AW (Rec: 10/24/20 11:38 AW [id number]) Medical Review Prior Functional Status Medical History Reviewed Yes Communication WNL Mobility and Gait Modified independent wtih 4WW for household and limited community mobility. Pt acknowledges one fall from her bed in the past one month. Activities of Daily Living and IADL's Pt has a private caregiver providing assist most mornings . Pt states she does not need assist with dressing but her caregiver does help. She has an indwelling navarro catheter but is frequently incontinent of bowel. She is able to complete toilet hygiene when she makes it to the toilet. Pt states she does not need assist for showers. She has someone come in once weekly to prep a few meals. Pt is active with home health services. Prior Functional Level (Other details) Pt has been admitted to this hospital four times since late June. Social History Household Members spouse Living Arrangements House Number of Floors (Floors) One Floor Number of Stairs To Enter/Railing? 5 SOHAIL with narrow B rails Home Environment High Toilet,Walk in Shower Home Equipment Four Wheel Walker,Straight Cane,Shower Seat with Backrest ,Grab Bars Near Toilet,Grab Bars In Shower Employment Status Retired Additional Social History Comment Pt has an adjustable bed. 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 M2 PT-IP Current Condition Start: 10/24/20 08:44 Freq: NEEDED Status: Active Protocol: Document 10/24/20 10:49 AW (Rec: 10/24/20 11:38 AW [id number]) Physical Therapy Current Condition Current Condition Evaluation Date 10/24/20 Treatment Diagnosis UTI, CAYETANO; impaired mobility and gait Onset Date 10/23/20 Precautions Other Precautions indwelling navarro catheter; falls M3 PT-IP Subjective Start: 10/24/20 08:44 Freq: NEEDED Status: Active Protocol: Document 10/24/20 10:49 AW (Rec: 10/24/20 11:38 AW [id number]) Subjective Physical Therapy Visit Type Type Initial Evaluation Visit Start Time 10:23 Visit Stop Time 10:49 Total Visit Minutes 26 Number of LEARNING ADMINISTRATOR Visits 0 Physical Therapy Visit Comments Patient Comments I'm wondering if I might be needing more care than I have at home. Therapy Pain Assessment Pain When Pain Assessed During Mobility Pain Present Pain Present Denied Pain M4 PT-IP Mobility and Gait Start: 10/24/20 08:44 Freq: NEEDED Status: Active Protocol: Document 10/24/20 10:49 AW (Rec: 10/24/20 11:38 AW [id number]) PT-Bed Mobility Assessment Rolling Type of Rolling Roll to Left Level of Assist Minimal Assistance Supine to Sit Supine to Sit Minimal Assistance Scooting Scooting to Edge of Bed Contact Guard Assistance PT-Transfer Assessment Sit to and From Stand Sit to and from Stand Contact Guard Assistance,Use of Upper Extremities Equipment Transfer Assistive Device Gait Belt,4 Wheeled Walker Orthotic/Prosthetic Devices or Brace: No Transfers Transfer Destination Chair Transfer Technique Stand Step Pivot Transfer Ability Level of Assist Contact Guard Assistance Comments Mobility Comments Pt was lying in bed as PT arrived. She needed min assist to roll and complete supine to sit, stating her bed at home is more firm and she does not need help at home. She was incontinent of bowel. She was able to stand CGA with 4WW for support and needed assist for pericare in standing. Standing balance with 4WW and CGA support was good and pt was able to stand on each leg long enough to don a fresh brief. Pt then used 4WW to ambulate around the room a total of 30 feet SBA/CGA before transferring to the chair CGA. She was positioned there with call light and tray table in reach. Gait Assessment Gait Gait Assistance Required: Standby Assistance,Contact Guard Assist Distance (Feet) 30 Assistive Devices Assistive Device Gait Belt,4 Wheeled Walker Orthotic/Prosthetic Devices or Brace: No Gait Deviations General Gait Pattern Antalgic,Flexed Trunk,Lateral Trunk Lean,Wide Based Gait Factors Limiting Gait Function Factors Limiting Gait Function Decreased Activity Tolerance, Decreased Sensation,Poor Balance Comments Gait Comments See mobility comments for details Stair Climbing Assessment Comments Stair Climbing Comments Not assessed. PT-Balance Assessment Sitting Balance and Reactions Static Sitting Balance Ability Good Dynamic Sitting Balance Ability Good Standing Balance and Reactions Static Standing Balance Ability Good Dynamic Standing Balance Ability Fair Device Used 4WW Balance Tests Single Limb Standing Able to stand on each leg with 4WW to don fresh brief M5 PT-IP Objective Assessments Start: 10/24/20 08:44 Freq: NEEDED Status: Active Protocol: Document 10/24/20 10:49 AW (Rec: 10/24/20 11:38 AW [id number]) Orientation Orientation/Cognition Level of Alertness Alert Orientation Name,Day of Week,Place, Situation Language Function Ability No Deficits Noted Safety Awareness Understands Safety Issues Memory Description No Deficits Noted Gross Range of Motion Lower Extremity ROM Assessment Within Functional Limits Strength Lower Extremity Strength Assessment Bilaterally Impaired Hip 4/5 Knee 4+/5 Ankle 4/5 Sensation Assessment Sensation Gross Sensation Right LE Impaired,Left LE Impaired Light Touch Impaired Proprioception (Position) Impaired Sensation Description Numbness Comments Sensation Comments B feet numb on plantar aspects with left more affected than right. Pt states this is a result of a poor surgical outcome following lumbar surgery years ago. Muscle Tone Muscle Tone WNL Yes M6 PT-IP Treatment Start: 10/24/20 08:44 Freq: NEEDED Status: Active Protocol: Document 10/24/20 10:49 AW (Rec: 10/24/20 11:38 AW [id number]) Physical Therapy Treatment Education Education Provided Safety Other Treatments Other Treatment Performed Educated pt on evaluation findings and PT plan of care. M7 PT-IP Assessment and Plan Start: 10/24/20 08:44 Freq: NEEDED Status: Active Protocol: Document 10/24/20 10:49 AW (Rec: 10/24/20 11:38 AW [id number]) PT Summary Assessment and Plan Potential Rehabilitation Potential Good Status of Condition at Evaluation Evolving Summary Impairments Strength,Balance,Sensation,Bed Mobility,Transfers,Gait, Activity Tolerance Assessment Summary Latonia is an 85 yo woman seen for PT evaluation with admitting diagnosis of complicated UTI and CAYETANO. She has been hospitalized four times this year - mostly related to complications from indwelling catheter. She is modified independent with 4WW and is currently active with home health services. On evaluation, pt required min assist for bed mobility and SBA/CGA for all other mobilities. She is likely near her functional baseline but would benefit from acute PT services to mitigate the risks of immobility, improve strength, and improve functional mobility. She will likely be safe to discharge back to home with spouse assist and resumed HH services once medically cleared. However, given her frequent re -admission, pt may also be appropriate for SNF rehab. PT will continue to assess. Goals Bed Mobility Goal Independent Transfer Goal Independent,Four Wheeled Walker Gait Goal Independent,Four Wheel Walker Gait Distance 200 Other Goals - up/down 5 steps with narrow B rails SBA Days to Meet Goals 5 Frequency of Treatment Frequency Of Treatment Once a Day Treatment Plan Physical Therapy Treatment Plan Bed Mobility Training,Transfer Training,Gait Training, Therapeutic Exercise,Balance Retraining,Discharge Planning, Neuromuscular Re-ed Other Recommendations and Next Treatment gait training with 4WW for Focus endurance; stairs as able Precautions Other Precautions indwelling navarro catheter; falls Recommendations To Nursing Amount of Assist Needed Standby Assistance,1 Person Assist Discharge Recommendations PT Discharge Recommendations Home with Assistance,Home Health,SNF Rehab,Home vs SNF Transportation Needs at Discharge Private Vehicle
--- NOTE | 2020-10-24 10:56 | PC.NURSE ---
Addendum entered by Myrna Gil R.N. 10/24/20 12:54: BP 98/52, asymptomatic. Dr. Pappas made aware. Bp meds and IVF held. Dr. Pappas to consult with Urology at . Encouraging PO intake. Original Note: Day shift note: Patient up OOB to chair with PT, 1PA with FWW. Copious soft BM this shift, incontinent. States has been experiencing more frequent episodes of bowel incontinence recently. No c/o nausea, vomiting or flank/pain. Aragon Cath secured in place, draining to gravity, very cloudy yellow urine. SCDs in place while in bed. Calls appropriately for staff assistance.
[2020-10-24] MEDS: ACETAMINOPHEN 325 MG TABLET 650 MG PO (14:29)
[2020-10-24] MEDS: SODIUM POLYSTYRENE SULFON/SORB 15 GM/60 ML CUP PO (15:33)
--- NOTE | 2020-10-24 15:49 | PC.NURSE ---
1530: kayexalate given for Kcl+ 6. patient reports intermittent bilat flank px 05/12, controlled w/ PRN apap. Urine remains cloudy, encourage PO fluids, as now SL. tolearting IV abx, denies N/V. plan for urology for surgery consult.
[2020-10-24 15:54] LABS: BUN Creatinine Ratio 16.8 (6-22); Blood Urea Nitrogen 66 mg/dL (7-17); Calcium 9.1 mg/dL (8.4-10.2); Carbon Dioxide 16 mmol/L (22-32); Chloride 109 mmol/L (98-107); Estimated Glomerular Filt Rate 10.9 mL/min (>60); Glucose 123 mg/dL (80-110); HEMOLYSIS < 15 (0-50); Potassium 5.4 mmol/L (3.4-5.1); Sodium 133 mmol/L (137-145)
[2020-10-24] MEDS: PIPERACILLIN/TAZO 3.375 GM in SODIUM CHLORIDE 0.9% 100 ML 25 ML IV (18:55)
[2020-10-24 20:14] LABS: BUN Creatinine Ratio 16.1 (6-22); Blood Urea Nitrogen 66 mg/dL (7-17); Carbon Dioxide 18 mmol/L (22-32); Chloride 109 mmol/L (98-107); Estimated Glomerular Filt Rate 10.4 mL/min (>60); Glucose 118 mg/dL (80-110); HEMOLYSIS < 15 (0-50); Potassium 5.2 mmol/L (3.4-5.1); Sodium 135 mmol/L (137-145)
[2020-10-24] MEDS: SODIUM CHLORIDE 0.9% FLUSH 10 ML IV (20:24)
[2020-10-24] MEDS: CALCIUM CARBONATE 500 MG TAB 1000 MG PO (20:28)
[2020-10-24] MEDS: ZOLPIDEM 5 MG TABLET PO (23:42)
[2020-10-25] VITALS (7 sets, daily range): BP systolic 92–129; BP diastolic 58–75; PULSE 80–96; RESP 15–18; TEMP 35.8–36.6; O2SAT 95–97
[2020-10-25] MEDS: SODIUM POLYSTYRENE SULFON/SORB 15 GM/60 ML CUP PO (00:09)
[2020-10-25 05:22] LABS: Add Manual Diff / Slide Review NO; Basophils Absolute Auto 100 /uL (0-100); Basophils Percent Auto 0.3 % (0-2); Eosinophils Absolute Auto 300 /uL (0-450); Eosinophils Percent Auto 1.7 % (2-4); Hematocrit 32.3 % (36-46); Hemoglobin 10.3 g/dL (12.0-16.0); Lymphocytes Absolute Auto 900 /uL (1100-4500); Lymphocytes Percent Auto 4.7 % (25-40); Mean Corpuscular Hemoglobin 27.7 PG (26-34); Mean Corpuscular Volume 86.6 fL (80-100); Monocytes Absolute Auto 2000 /uL (0-900); Monocytes Percent Auto 10.8 % (3-14); Neutrophils Absolute Auto 15600 /uL (1500-7000); Neutrophils Percent Auto 82.5 % (50-75); Platelet Count 287 X10^3/uL (150-400); Red Blood Cell Count 3.73 X10^6/uL (4.0-5.2); Red Cell Distribution Width 15.4 % (11.6-14.8); White Blood Cell Count 18.9 X10^3/uL (4.5-11.0)
[2020-10-25 05:36] LABS: Alanine Aminotransferase 41 IU/L (<35); Albumin 2.8 g/dL (3.5-5.0); Albumin Globulin Ratio 0.8 (1.0-2.8); Alkaline Phosphatase 101 U/L (38-126); Aspartate Aminotransferase 45 IU/L (14-36); BUN Creatinine Ratio 15.3 (6-22); Bilirubin Total 0.3 mg/dL (0.2-1.3); Blood Urea Nitrogen 66 mg/dL (7-17); Calcium 9.1 mg/dL (8.4-10.2); Carbon Dioxide 17 mmol/L (22-32); Chloride 110 mmol/L (98-107); Estimated Glomerular Filt Rate 9.8 mL/min (>60); Globulin 3.4 g/dL (1.7-4.1); Glucose 118 mg/dL (80-110); HEMOLYSIS < 15 (0-50); Sodium 135 mmol/L (137-145); Total Protein 6.2 g/dL (6.3-8.2)
[2020-10-25 05:37] LABS: Potassium 5.6 mmol/L (3.4-5.1)
[2020-10-25] MEDS: PIPERACILLIN/TAZO 3.375 GM in SODIUM CHLORIDE 0.9% 100 ML 25 ML IV (06:27)
[2020-10-25] MEDS: LEVOTHYROXINE 100 MCG TABLET PO (06:30)
[2020-10-25] MEDS: SODIUM CHLORIDE 0.9% 250 ML 21 ML IV (06:31)
--- NOTE | 2020-10-25 07:55 | PC.NURSE ---
Addendum entered by Elizabeth Tam R.N. 10/25/20 12:41: Dr. Joshi notified of patient status, telephone order given for BMP. Addendum entered by Elizabeth Tam R.N. 10/25/20 12:12: Patient to work with PT, BP is 87/42, MAP 58, HR 86, second set 92/43, MAP 57, HR 93. Patient endorses feeling dizzy and overall fatigue. PT will hold on therapy. Patient reclined in the chair, encouraged to drink water. Dr. Joshi office called and overhead page placed. Original Note: Patient is resting in bed, repositioned. A/O x 3. Aragon patent, draining cloudy urine. Tele is on, pulses equal, patient remains hypotensive, asymptomatic. Endorses pain 3/10 in RUQ, BS active x 4. Tylenol administered. ABX infusing in R AC PIV. Patient denies concerns or compliants at this time. SCD's on. Bed alarm on.
[2020-10-25] MEDS: ASPIRIN 81 MG CHEW TAB PO (08:00)
[2020-10-25] MEDS: GABAPENTIN 300 MG CAPSULE PO ×3 (08:01→20:00)
[2020-10-25] MEDS: CITALOPRAM 10 MG TABLET PO (08:01)
[2020-10-25] MEDS: ACETAMINOPHEN 325 MG TABLET 650 MG PO (08:01)
--- NOTE | 2020-10-25 09:01 | P.PN_ITS ---
Subjective Subjective Date Patient Seen: 10/25/20 Time Patient Seen: 08:50 Interval history: alert elder sitting up in bed picking at breakfast. sense of humor intact. navarro bag with scant straw urine output. slept ok last night but feels low energy. got up and took shower today. Chief complaint: I feel tired Exam Vital Signs (past 8 hours): - 10/25/20 03:36 10/25/20 05:27 10/25/20 08:00 Temperature 97.7 F 97.7 F 97.2 F L Pulse Rate 89 96 H Respiratory Rate 18 18 Blood Pressure 129/75 92/59 L Pulse Oximetry 95 95 Oxygen Delivery Method Room Air Oxygen Flow Rate 0 Narrative Exam Narrative: tired elder in bed Const General: cooperative and ill appearing Nutritional Appearance: obese HENMT Head: normal to inspection, normocephalic and atraumatic Eyes General: appearance normal, both eyes and all related structures Resp Effort & Inspection: normal respiratory effort Auscultation: clear to auscultation bilaterally Cardio Other: irregularly irregular rhythm with controlled rate S1/S2 no murmurs rubs gallops GI Palpation: soft and No guarding Auscultation: normal bowel sounds General: CVA tenderness Skin General: no rashes or lesions noted and turgor normal Neuro General: patient alert, patient awake, patient oriented x3 and CN's II-XI intact bilaterally Extrem General: full ROM and no pedal edema Psych Appearance: grossly normal and well kempt Mental Status: mental status grossly normal Objective Labs Result Diagrams: 10/25/20 04:52 10/25/20 12:55 Labs: Laboratory Results - last 24 hr 10/24/20 10/24/20 10/25/20 15:40 20:00 04:52 WBC 18.9 H RBC 3.73 L Hgb 10.3 L Hct 32.3 L MCV 86.6 MCH 27.7 MCHC 32.0 RDW 15.4 H Plt Count 287 Neut % (Auto) 82.5 H Lymph % (Auto) 4.7 L [place] % (Auto) 10.8 Eos % (Auto) 1.7 L Baso % (Auto) 0.3 Neut # (Auto) 03244 H Lymph # (Auto) 900 L [place] # (Auto) 2000 H Eos # (Auto) 300 Baso # (Auto) 100 Sodium 133 L 135 L Potassium 5.4 H 5.2 H Chloride 109 H 109 H Carbon Dioxide 16 L 18 L BUN 66 H 66 H Creatinine 3.93 H 4.09 H Estimated GFR 10.9 L 10.4 L BUN/Creatinine Ratio 16.8 16.1 Glucose 123 H 118 H Calcium 9.1 9.0 Total Bilirubin AST ALT Alkaline Phosphatase Total Protein Albumin Globulin Albumin/Globulin Ratio 10/25/20 04:52 WBC RBC Hgb Hct MCV MCH MCHC RDW Plt Count Neut % (Auto) Lymph % (Auto) [place] % (Auto) Eos % (Auto) Baso % (Auto) Neut # (Auto) Lymph # (Auto) [place] # (Auto) Eos # (Auto) Baso # (Auto) Sodium 135 L Potassium 5.6 H Chloride 110 H Carbon Dioxide 17 L BUN 66 H Creatinine 4.31 H Estimated GFR 9.8 L BUN/Creatinine Ratio 15.3 Glucose 118 H Calcium 9.1 Total Bilirubin 0.3 AST 45 H ALT 41 H Alkaline Phosphatase 101 Total Protein 6.2 L Albumin 2.8 L Globulin 3.4 Albumin/Globulin Ratio 0.8 L PFSH Medical History Anxiety Calculus of kidney Depression GI bleed Gross hematuria History of recurrent UTI (urinary tract infection) HTN (hypertension) Hypothyroid Nephrolithiasis Noncompliant neurogenic bladder Obstructive uropathy MORGAN on CPAP Peptic ulcer disease Pneumothorax Postmenopausal atrophic vaginitis Ureteral obstruction, left Urinary incontinence, mixed Surgical History H/O gastric bypass H/O mastectomy History of back surgery History of hip replacement History of thyroidectomy Hx of bilateral cataract extraction (2012) Hx of cystoscopy (08/04/19) Nephrostomy status Family History Father Seizures Mother Heart disease Diabetes mellitus Brother No significant medical problems Sister Diabetes mellitus Grandmother Diabetes mellitus Social History household members: spouse Smoking Status: Never smoker alcohol intake: never eating out: rarely or never Type(s) of exercise: none Assessment & Plan Assessment & Plan narrative: 85 year old female with indwelling urinary catheter 2/2 hx of obstruction and hydronephrosis, subsequent recurrent UTIs, severe bilateral hydronephrosis and moderate bilateral hydroureter, this is fourth inpatient hospitalization in 4 months, HD#2. #Complicated urinary tract infection, acute on chronic, risk for urosepsis Switching abx to monotherapy rocephin IV based on culture. Patient is failing home care and needs definitive treatment with ureteral stent or nephrostomy tube to relieve her urinary obstruction. May need discussion of suprapubic catheter as navarro does not seem to be working; this is her fourth inpatient stay for essentially the same complaint in the last 4 months with worsening kidney function. Dr. Pappas discussed with on-call urologist yesterday, I discussed with [facility] Dr. Gatito Blackwell this morning, both advised transfer. #Acute on chronic kidney disease, stage 4, likely exacerbated by UTI, acute dehydration, and obstructive uropathy, worsened Poor output despite fluid challenge.alance. Creatinine is showing only the slightest of improvements, 3.81 to 3.75. trolley collector advised not think that further fluid challenges or lasix would improve the electrolytes or creatinine if there is obstruction and should be avoided at this time. Encouraged PO fluid intake as desired. #hyperkalemia, acute Potassium trending up from 5.9 to 6.0 yesterday, received kayexalate at recs of nephrology now down to 4.9 in setting of increasing creatinine. nephrology recs kayexalate 15 mg PO up to tid with serial labs while awaiting urgent decompression of her urinary obtruction with a ureteral stent or nephrostomy tube. If her potassium is unable to be lowered with kayexalate, advised additional medical management with 10 units of insulin with 1 amp of D50; however, this would only temporize the problem and ultimately, she may need urgent, short term dialysis if potassium is not able to be lowered. Advised transfer to tertiary care facility now for higher level of care including possible dialysis and urgent urology/IR procedures. Patient is at risk of wide complete tachycairdia, which is especially concerning in the setting of her atrial fibrillation. Unfortunately, her atrial fibrillation is not currently being medically rate-controlled due to her hypotension but she is currently in sinus rhythm. Due to her history of GI bleed and severe epistaxis, she is not a candidate for anticoagulation. I spoke with [facility] nephro this morning Dr. Cristian Eng he concurred. #Obstructive uropathy, overflow incontinence,and detrusor instability with indwelling Navarro catheter #Electrolyte derangement, acute 2/2 acute on chronic kidney disease, please see above. #Diabetes mellitus type 2 Diabetic diet. hold metformin. #Hematuria, chronic Likely due to infection/inflammation; KUB negative for nephrolithiasis. 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 q.day however continue to hold due to hypotension. Reasonable rate today. Continue aspirin. Telemetry. #Hypertension, chronic Hold home metoprolol due to hypotension. Rehydrating and will trend vital signs and labs. Will continue to hold if BP <120/80. #Hyperlipidemia, chronic Continue home atorvastatin 40 mg PO qhs. #Hypothyroidism, chronic Continue home levothyroxine 100 mcg p.o. q.a.m. Will update TSH. #MORGAN, chronic Continue home CPAP. #Morbid obesity, chronic Patient is at risk for delayed and poor healing secondary to weight. #Chronic pain syndrome Continue home tramadol and gabapentin. #Atrophic vaginitis Continue home ospemifene. #Depression/anxiety Continue home citalopram. Code: DNR / DNI DVT prophylaxis: SCDs, further anticoagulation contraindicated secondary to history of epistaxis and history of GI bleed COVID: Negative Disposition: Continued attempts to transfer to tertiary care center today. No beds available but specialists at and [facility] are interested. Pt urgently needs interventional assistance. Quality VTE Deep Vein Thrombosis/Pulmonary Embolism Present on Admission: No
--- NOTE | 2020-10-25 10:33 | OT.IP.EVAL ---
Current Diagnoses Urinary tract infection, site not specified (10/23/20) Past Medical History (Last Reviewed 10/23/20 @ 12:58 by Solange Bustos DO) Anxiety Calculus of kidney Depression GI bleed Gross hematuria H/O gastric bypass H/O mastectomy History of back surgery History of hip replacement History of recurrent UTI (urinary tract infection) History of thyroidectomy HTN (hypertension) Hx of bilateral cataract extraction (2012) Hx of cystoscopy (08/04/19) Hypothyroid Nephrolithiasis Nephrostomy status Noncompliant neurogenic bladder Obstructive uropathy MORGAN on CPAP Peptic ulcer disease Pneumothorax Postmenopausal atrophic vaginitis Ureteral obstruction, left Urinary incontinence, mixed Surgical History (Last Reviewed 10/23/20 @ 12:58 by Solange Bustos DO) H/O gastric bypass H/O mastectomy History of back surgery History of hip replacement History of thyroidectomy Hx of bilateral cataract extraction (2012) Hx of cystoscopy (08/04/19) Nephrostomy status Occupational Therapy Inpatient Evaluation/Re-Eval M1 PT/OT-IP Prior Functional Status Start: 10/24/20 08:44 Freq: NEEDED Status: Active Protocol: Document 10/25/20 09:33 [facility] (Rec: 10/25/20 11:29 [facility] [id number]) Medical Review Prior Functional Status Medical History Reviewed Yes Communication WNL Mobility and Gait Modified independent wtih 4WW for household and limited community mobility. Pt acknowledges one fall from her bed in the past one month. Activities of Daily Living and IADL's Pt has a private caregiver providing assist most mornings . Pt states she does not need assist with dressing but her caregiver does help. She has an indwelling navarro catheter but is frequently incontinent of bowel. She is able to complete toilet hygiene when she makes it to the toilet. Pt states she does not need assist for showers. She has someone come in once weekly to prep a few meals. Pt is active with home health services. Prior Functional Level (Other details) Pt has been admitted to this hospital four times since late June. Social History Household Members spouse Living Arrangements House Number of Floors (Floors) One Floor Number of Stairs To Enter/Railing? 5 SOHAIL with narrow B rails Home Environment High Toilet,Walk in Shower Home Equipment Four Wheel Walker,Straight Cane,Shower Seat with Backrest ,Grab Bars Near Toilet,Grab Bars In Shower Employment Status Retired Additional Social History Comment Pt has an adjustable bed. 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 [facility] with her spouse, Bill. M2 OT-IP Current Condition Start: 10/25/20 11:10 Freq: Status: Active Protocol: Document 10/25/20 09:33 [facility] (Rec: 10/25/20 11:29 [facility] [id number]) Occupational Therapy Current Condition Current Condition Evaluation Date 10/25/20 Treatment Diagnosis UTI, decreased self care Diagnosis Onset Date 10/23/20 M3 OT- IP Subjective and Pain Start: 10/25/20 11:10 Freq: Status: Active Protocol: Document 10/25/20 09:33 [facility] (Rec: 10/25/20 11:29 [facility] [id number]) OT- Subjective Occupational Therapy Visit Type Type Initial Evaluation Visit Start Time 09:33 Visit Stop Time 10:33 Total Visit Minutes 60 Occupational Therapy Visit Comments Patient Comments Pt agreed to take a shower. Patient/Caregiver Goals To go home. OT Pain Assessment Pain When Pain Assessed At Rest Pain Present Pain Present Denied Pain M4 OT- IP ADL's Start: 10/25/20 11:10 Freq: Status: Active Protocol: Document 10/25/20 09:33 [facility] (Rec: 10/25/20 11:29 [facility] [id number]) OT [id number] Comments OT Self-Feeding Comments NOt at meal time. OT ADL-Grooming General Evaluation Grooming Ability Standby Assistance Areas Needing Assistance Retrieving/Set-up of Grooming Items Comments OT Grooming Comments Able to do while seated in recliner. OT ADL-Oral Care Comments Oral Care Comments Not performed. OT ADL-Dressing General Eval Lower Body Dressing Ability Minimal Assistance Areas Needing Assistance Underpants/Brief Comments OT Dressing Comments Assist to help get catheter through the brief. CGA while standing to pull up the brief over her hips. Pt able to holden /doff socks with increased time while seated. OT ADL-Toileting General Evaluation Toileting Ability Maximum Assistance Areas Needing Assistance Empty Catheter or Colostomy, Perform Perineal Hygiene Comments OT Toileting Comments Pt needing assist for completeness as has difficulty to do her pericare needs after having a bowel movement. Suggested would be beneficial to get a bidet to help increase her ease and thoroughness to be able to clean herself, otherwise her may have to assist. OT ADL-Bathing Bathing Type Bathing Type Shower General Evaluation Bathing Ability Minimal Assistance,Moderate Assistance Areas Needing Assistance Wash/Dry Back,Wash/Dry Perineal Area Devices Bathing Equipment Hand Held Shower Sprayer, Shower Chair without Arms,Grab Bars Comments OT Bathing Comments Pt mainly assist for her back and for completeness to pericare needs. M5 OT- IP IADL's Start: 10/25/20 11:10 Freq: Status: Active Protocol: Document 10/25/20 09:33 [facility] (Rec: 10/25/20 11:29 [facility] [id number]) OT-Instrumental Activities of Daily Living Home Safety Awareness Awareness of Need for Assistance at Home Good Awareness Ability to Problem Solve Emergency Able to Problem Solve Situations Meal Preparation Meal Preparation Caregiver Provides Assist Mannequin Refinisher Mannequin Refinisher Caregiver Provides Assist M6 OT- IP Functional Cognition Start: 10/25/20 11:10 Freq: Status: Active Protocol: Document 10/25/20 09:33 [facility] (Rec: 10/25/20 11:29 [facility] [id number]) Cognitive Factors Limiting Selfcare Function Cognitive Ability Level of Alertness Alert Patient Orientation Name,Age,Birthday,Month,Date, Year,Day of Week,Place, Situation Attention Span Ability Capable of Focused Attention, Capable of Sustained Attention Ability to Follow Commands Able to Follow Multi-Step Commands Memory Description No Deficits Noted Safety Awareness No Deficits Noted Cognitive Comments Cognitive Assessment Comments Pt appears to be at baseline, continue to assess for cognitive needs as pt has UTI. OT- Vision and Hearing OT- Hearing Assessment OT- Hearing Assessment WFL M7 OT- IP Mobility and Balance Start: 10/25/20 11:10 Freq: Status: Active Protocol: Document 10/25/20 09:33 [facility] (Rec: 10/25/20 11:29 [facility] [id number]) OT- Bed Mobility Assessment Rolling Level of Assistance Standby Assistance Supine to Sit Supine to Sit Assist Standby Assistance,Head of Bed Elevated OT-Transfer Assessment Sit to and From Stand Sit to and from Stand Contact Guard Assistance Transfers Transfer Ability Standby Assistance,Contact Guard Assistance Technique Transfer Destination Bed,Chair,Shower Stall,Toilet Transfer Technique Stand Step Pivot Devices Transfer Assistive Devices Gait Belt,4 Wheeled Walker Comments Mobility Comments CGA when stepping over the threshold of the shower and assist to navigate her 4ww in a tight space. OT- Balance Assessment Sitting Balance and Reactions Static Sitting Balance Ability Normal Dynamic Sitting Balance Ability Good Standing Balance and Reactions Static Standing Balance Ability Fair Dynamic Standing Balance Ability Fair Comments Other Balance Tests/Deviations/Treatment Pt able to stand for most of : the shower, with use of grab bar to assist for her balance. M8 OT- IP Objective Assessments Start: 10/25/20 11:10 Freq: Status: Active Protocol: Document 10/25/20 09:33 [facility] (Rec: 10/25/20 11:29 [facility] [id number]) OT Gross Range of Motion Upper Extremity Range of Motion Assessment Right Impaired ROM Impairments RUE 0-80 OT Strength Upper Extremity Strength Assessment Right Impaired M9 OT- IP Assessment and Plan Start: 10/25/20 11:10 Freq: Status: Active Protocol: Document 10/25/20 09:33 [facility] (Rec: 10/25/20 11:29 [facility] [id number]) OT Summary Assessment and Plan Potential Rehabilitation Potential Good Analytic Complexity at Evaluation Moderate Summary OT Impairments Strength,Balance,Functional Mobility,Dressing,Toileting, Bathing,Toilet Transfers, Shower Transfers,Activity Tolerance Progress Towards Goals Slow Progress due to Medical Issues Assessment Summary Pt MOD complexity and main barriers are steps and not been able to properly do her hygiene needs due to incontinence of bowels. Pt would benefit from a bidet and assist at home to be sure that she is properly cleaned. In addition pt if going home may benefit from a shower aid. Pending progress and medical status, pt to go home with assist and home health. Goals Grooming Goal Independent Dressing Goal Independent Toileting Goal Independent Bathing Goal Independent Toilet Transfer Goal Independent Shower Transfer Goal Independent Days to Meet Goals 7 Frequency of Treatment Frequency Of Treatment Once a Day Treatment Plan OT Treatment Plan ADL Training,Functional Mobility,Patient/Family Education,Discharge Planning Other Treatment Recommendations and Next Standing for grooming needs. Treatment Focus Discharge Recommendations OT Discharge Recommendations Home with Assistance,Home Health Home Equipment Needs Bidet Transportation Needs at Discharge Private Vehicle
[2020-10-25] MEDS: cefTRIAXone 1,000 MG in SODIUM CHLORIDE 0.9% 100 ML 200 ML IV (11:22)
[2020-10-25 13:23] LABS: BUN Creatinine Ratio 15.5 (6-22); Blood Urea Nitrogen 68 mg/dL (7-17); Calcium 8.9 mg/dL (8.4-10.2); Carbon Dioxide 15 mmol/L (22-32); Chloride 112 mmol/L (98-107); Estimated Glomerular Filt Rate 9.5 mL/min (>60); Glucose 119 mg/dL (80-110); HEMOLYSIS < 15 (0-50); Potassium 4.9 mmol/L (3.4-5.1); Sodium 137 mmol/L (137-145)
--- NOTE | 2020-10-25 14:51 | CM.DPC ---
DCP Cont: MD continuing to consult with Urology on recommendations as pt wasn't able to be transferred yesterday for procedure. PT attempted to work with pt again but bp issues and dizziness and fatigue so PT holding for right now. Plan: SW to follow closely to determine if Urology procedure can happen as outpt or at [facility] vs hospital transfer and if pt can continue to work with PT towards plan of home with [facility] and parttime caregivers. BIANCA Condon
--- NOTE | 2020-10-25 17:14 | PT.IPTN ---
Current Diagnoses Urinary tract infection, site not specified (10/23/20) Physical Therapy Treatment Note M2 PT-IP Current Condition Start: 10/24/20 08:44 Freq: NEEDED Status: Active Protocol: Document 10/25/20 17:13 MA (Rec: 10/25/20 17:26 MA [id number]) Physical Therapy Current Condition Current Condition Evaluation Date 10/24/20 Treatment Diagnosis UTI, CAYETANO; impaired mobility and gait Onset Date 10/23/20 Precautions Other Precautions indwelling navarro catheter; falls M3 PT-IP Subjective Start: 10/24/20 08:44 Freq: NEEDED Status: Active Protocol: Document 10/25/20 17:13 MA (Rec: 10/25/20 17:26 MA [id number]) Subjective Physical Therapy Visit Type Type Treatment Note Visit Start Time 16:48 Visit Stop Time 17:14 Total Visit Minutes 26 Number of BOILERMAKER Visits 1 Physical Therapy Visit Comments Patient Comments I have been dizzy on and off all day Therapy Pain Assessment Pain When Pain Assessed During Mobility Pain Present Pain Present Denied Pain M4 PT-IP Mobility and Gait Start: 10/24/20 08:44 Freq: NEEDED Status: Active Protocol: Document 10/25/20 17:13 MA (Rec: 10/25/20 17:26 MA [id number]) PT-Bed Mobility Assessment Rolling Type of Rolling Roll to Left Level of Assist Contact Guard Assistance Supine to Sit Supine to Sit Minimal Assistance Scooting Scooting to Edge of Bed Contact Guard Assistance PT-Transfer Assessment Sit to and From Stand Sit to and from Stand Contact Guard Assistance,Use of Upper Extremities Equipment Transfer Assistive Device Gait Belt,4 Wheeled Walker Orthotic/Prosthetic Devices or Brace: No Transfers Transfer Destination Chair,Toilet Transfer Technique Stand Step Pivot Transfer Ability Level of Assist Standby Assistance Comments Mobility Comments Pt was in bed upon arrival. She required Min A for supine> sit in bed and was CGA for toilet transfer but SBA for chair transfer. Gait Assessment Gait Gait Assistance Required: Standby Assistance Distance (Feet) 30 Assistive Devices Assistive Device Gait Belt,4 Wheeled Walker Orthotic/Prosthetic Devices or Brace: No Gait Deviations General Gait Pattern Antalgic,Flexed Trunk,Lateral Trunk Lean,Wide Based Gait Factors Limiting Gait Function Factors Limiting Gait Function Decreased Activity Tolerance, Decreased Sensation,Poor Balance Comments Gait Comments Pt was able to make 3 laps around her room before stating that she really needed to use the restroom. She ambulates using gait belt and FWW, SBA. Stair Climbing Assessment Comments Stair Climbing Comments Not assessed. PT-Balance Assessment Sitting Balance and Reactions Static Sitting Balance Ability Good Dynamic Sitting Balance Ability Good Standing Balance and Reactions Static Standing Balance Ability Fair Dynamic Standing Balance Ability Fair Device Used 4WW Balance Tests Single Limb Standing Able to stand on each leg with 4WW to don fresh brief Comments Other Balance Tests/Deviations/Treatment Pt is able to stand SBA for : hygeine activity and for changing brief. M5 PT-IP Objective Assessments Start: 10/24/20 08:44 Freq: NEEDED Status: Active Protocol: Document 10/24/20 10:49 AW (Rec: 10/24/20 11:38 AW [id number]) Orientation Orientation/Cognition Level of Alertness Alert Orientation Name,Day of Week,Place, Situation Language Function Ability No Deficits Noted Safety Awareness Understands Safety Issues Memory Description No Deficits Noted Gross Range of Motion Lower Extremity ROM Assessment Within Functional Limits Strength Lower Extremity Strength Assessment Bilaterally Impaired Hip 4/5 Knee 4+/5 Ankle 4/5 Sensation Assessment Sensation Gross Sensation Right LE Impaired,Left LE Impaired Light Touch Impaired Proprioception (Position) Impaired Sensation Description Numbness Comments Sensation Comments B feet numb on plantar aspects with left more affected than right. Pt states this is a result of a poor surgical outcome following lumbar surgery years ago. Muscle Tone Muscle Tone WNL Yes M6 PT-IP Treatment Start: 10/24/20 08:44 Freq: NEEDED Status: Active Protocol: Document 10/25/20 17:13 MA (Rec: 10/25/20 17:26 MA [id number]) Physical Therapy Treatment Exercises Exercises Ankle Pumps,Seated Knee Flexion/Extension Education Education Provided Safety Other Treatments Other Treatment Performed pt performed exercises seated EOB with LEs dangling off floor due to pt's short stature. M7 PT-IP Assessment and Plan Start: 10/24/20 08:44 Freq: NEEDED Status: Active Protocol: Document 10/25/20 17:13 MA (Rec: 10/25/20 17:26 MA [id number]) PT Summary Assessment and Plan Potential Rehabilitation Potential Good Status of Condition at Evaluation Evolving Summary Impairments Strength,Balance,Sensation,Bed Mobility,Transfers,Gait, Activity Tolerance Assessment Summary Pt required min A for supine> sit but was able to sit>stand SBA with gait belt and 4WW. She requires CGA for transfer to toilet but is SBA for chair transfer. She walks using gait belt and 4WW SBA today and is left in room chair, all needs within reach with her nurse present. Pt had some dizziness upon sitting up on EOB, BP 123/63. At end of session BP taken again with pt seated in room chair, BP 112/ 73. Pt will likely be safe to discharge back to home with spouse assist and resumed services once medically cleared. However, given her frequent re-admission, pt may also be appropriate for SNF rehab. PT will continue to assess. Goals Bed Mobility Goal Independent Transfer Goal Independent,Four Wheeled Walker Gait Goal Independent,Four Wheel Walker Gait Distance 200 Other Goals - up/down 5 steps with narrow B rails SBA Days to Meet Goals 5 Frequency of Treatment Frequency Of Treatment Once a Day Treatment Plan Physical Therapy Treatment Plan Bed Mobility Training,Transfer Training,Gait Training, Therapeutic Exercise,Balance Retraining,Discharge Planning, Neuromuscular Re-ed Other Recommendations and Next Treatment gait training with 4WW for Focus endurance; stairs as able Precautions Other Precautions indwelling navarro catheter; falls Recommendations To Nursing Amount of Assist Needed Standby Assistance Discharge Recommendations PT Discharge Recommendations Home with Assistance,Home Health,SNF Rehab,Home vs SNF Transportation Needs at Discharge Private Vehicle
[2020-10-25 19:29] LABS: BUN Creatinine Ratio 14.1 (6-22); Blood Urea Nitrogen 69 mg/dL (7-17); Calcium 8.9 mg/dL (8.4-10.2); Carbon Dioxide 16 mmol/L (22-32); Chloride 110 mmol/L (98-107); Estimated Glomerular Filt Rate 8.5 mL/min (>60); Glucose 150 mg/dL (80-110); HEMOLYSIS < 15 (0-50); Potassium 4.9 mmol/L (3.4-5.1); Sodium 136 mmol/L (137-145)
[2020-10-25] MEDS: TRAMADOL 50 MG TABLET PO (20:00)
[2020-10-25] MEDS: SODIUM CHLORIDE 0.9% FLUSH 10 ML IV (20:01)
--- NOTE | 2020-10-25 20:26 | PC.NURSE ---
patient reported slight increase in R flank/abdominal pain/discomfort. offered Tramadol for BTP, this was given. call to MD to update on above and to request d/c of levaquin IV, as this was d/c'd per Dr Joshi note from today. this was replaced w/ Rocephin IV. new order received: d/c levaquin. MS 1mg IV Q2 hours PRN pain. patient aware of above new orders. urine is slightly improved, clear yellow. encourage po fluids.
[2020-10-25] MEDS: ZOLPIDEM 5 MG TABLET PO (21:38)
[2020-10-26] VITALS (7 sets, daily range): BP systolic 93–131; BP diastolic 51–72; PULSE 60–99; RESP 15–24; TEMP 36.2–36.9; O2SAT 94–100
[2020-10-26 00:21] LABS: BUN Creatinine Ratio 14.6 (6-22); Blood Urea Nitrogen 70 mg/dL (7-17); Calcium 8.8 mg/dL (8.4-10.2); Carbon Dioxide 17 mmol/L (22-32); Chloride 110 mmol/L (98-107); Estimated Glomerular Filt Rate 8.6 mL/min (>60); Glucose 113 mg/dL (80-110); HEMOLYSIS < 15 (0-50); Sodium 136 mmol/L (137-145)
[2020-10-26 00:23] LABS: Potassium 5.4 mmol/L (3.4-5.1)
[2020-10-26 05:50] LABS: Add Manual Diff / Slide Review NO; Basophils Absolute Auto 100 /uL (0-100); Basophils Percent Auto 0.6 % (0-2); Eosinophils Absolute Auto 300 /uL (0-450); Eosinophils Percent Auto 2.2 % (2-4); Hematocrit 29.9 % (36-46); Hemoglobin 9.6 g/dL (12.0-16.0); Lymphocytes Absolute Auto 1000 /uL (1100-4500); Lymphocytes Percent Auto 7.2 % (25-40); Mean Corpuscular Hemoglobin 27.5 PG (26-34); Mean Corpuscular Volume 85.9 fL (80-100); Monocytes Absolute Auto 1400 /uL (0-900); Monocytes Percent Auto 10.4 % (3-14); Neutrophils Absolute Auto 11000 /uL (1500-7000); Neutrophils Percent Auto 79.6 % (50-75); Platelet Count 298 X10^3/uL (150-400); Red Blood Cell Count 3.48 X10^6/uL (4.0-5.2); Red Cell Distribution Width 15.6 % (11.6-14.8); White Blood Cell Count 13.9 X10^3/uL (4.5-11.0)
[2020-10-26 06:00] LABS: Alanine Aminotransferase 36 IU/L (<35); Albumin 2.6 g/dL (3.5-5.0); Albumin Globulin Ratio 0.8 (1.0-2.8); Alkaline Phosphatase 96 U/L (38-126); Aspartate Aminotransferase 34 IU/L (14-36); BUN Creatinine Ratio 15.5 (6-22); Blood Urea Nitrogen 71 mg/dL (7-17); Calcium 8.6 mg/dL (8.4-10.2); Carbon Dioxide 14 mmol/L (22-32); Chloride 112 mmol/L (98-107); Estimated Glomerular Filt Rate 9.1 mL/min (>60); Globulin 3.4 g/dL (1.7-4.1); Glucose 162 mg/dL (80-110); HEMOLYSIS < 15 (0-50); Potassium 5.1 mmol/L (3.4-5.1); Sodium 134 mmol/L (137-145)
[2020-10-26 06:03] LABS: Bilirubin Total < 0.1 mg/dL (0.2-1.3)
[2020-10-26] MEDS: LEVOTHYROXINE 100 MCG TABLET PO (06:51)
--- NOTE | 2020-10-26 08:33 | PM.PN.1 ---
Subjective Subjective Date Patient Seen: 10/26/20 Time Patient Seen: 13:27 Interval history: Patient overall. Feels slightly brighter. No other changes. No nausea no vomiting. Not a lot appetite. Still has some flank pain. Mild abdominal pain but Exam Vital Signs (past 8 hours): - 10/26/20 04:00 10/26/20 07:45 Temperature 98.4 F 98.1 F Pulse Rate 98 H 84 Respiratory Rate 16 24 Blood Pressure 101/51 L 113/72 Pulse Oximetry 94 96 Oxygen Delivery Method Room Air Oxygen Flow Rate 0 Narrative Exam Narrative: Alert female elderly in no acute distress laying in bed Mucous membranes moist. Neck supple without adenopathy. Lungs are clear. Heart regular rate and rhythm. Abdomen is soft mildly distended slightly tender diffusely no rebound guarding no masses. Extremities without cyanosis clubbing edema. Neurologic Objective Labs Result Diagrams: 10/26/20 04:58 10/26/20 04:58 Labs: Laboratory Results - last 24 hr 10/25/20 10/25/20 10/25/20 12:55 19:13 23:58 WBC RBC Hgb Hct MCV MCH MCHC RDW Plt Count Neut % (Auto) Lymph % (Auto) [place] % (Auto) Eos % (Auto) Baso % (Auto) Neut # (Auto) Lymph # (Auto) [place] # (Auto) Eos # (Auto) Baso # (Auto) Sodium 137 136 L 136 L Potassium 4.9 4.9 5.4 H Chloride 112 H 110 H 110 H Carbon Dioxide 15 L 16 L 17 L BUN 68 H 69 H 70 H Creatinine 4.40 H 4.88 H 4.79 H Estimated GFR 9.5 L 8.5 L 8.6 L BUN/Creatinine Ratio 15.5 14.1 14.6 Glucose 119 H 150 H 113 H Calcium 8.9 8.9 8.8 Total Bilirubin AST ALT Alkaline Phosphatase Total Protein Albumin Globulin Albumin/Globulin Ratio 10/26/20 10/26/20 04:58 04:58 WBC 13.9 H RBC 3.48 L Hgb 9.6 L Hct 29.9 L MCV 85.9 MCH 27.5 MCHC 32.0 RDW 15.6 H Plt Count 298 Neut % (Auto) 79.6 H Lymph % (Auto) 7.2 L [place] % (Auto) 10.4 Eos % (Auto) 2.2 Baso % (Auto) 0.6 Neut # (Auto) 96843 H Lymph # (Auto) 1000 L [place] # (Auto) 1400 H Eos # (Auto) 300 Baso # (Auto) 100 Sodium 134 L Potassium 5.1 Chloride 112 H Carbon Dioxide 14 L BUN 71 H Creatinine 4.59 H Estimated GFR 9.1 L BUN/Creatinine Ratio 15.5 Glucose 162 H Calcium 8.6 Total Bilirubin < 0.1 L AST 34 ALT 36 H Alkaline Phosphatase 96 Total Protein 6.0 L Albumin 2.6 L Globulin 3.4 Albumin/Globulin Ratio 0.8 L PFSH Medical History Anxiety Calculus of kidney Depression GI bleed Gross hematuria History of recurrent UTI (urinary tract infection) HTN (hypertension) Hypothyroid Nephrolithiasis Noncompliant neurogenic bladder Obstructive uropathy MORGAN on CPAP Peptic ulcer disease Pneumothorax Postmenopausal atrophic vaginitis Ureteral obstruction, left Urinary incontinence, mixed Surgical History H/O gastric bypass H/O mastectomy History of back surgery History of hip replacement History of thyroidectomy Hx of bilateral cataract extraction (2012) Hx of cystoscopy (08/04/19) Nephrostomy status Family History Father Seizures Mother Heart disease Diabetes mellitus Brother No significant medical problems Sister Diabetes mellitus Grandmother Diabetes mellitus Social History household members: spouse Smoking Status: Never smoker alcohol intake: never eating out: rarely or never Type(s) of exercise: none Assessment & Plan Assessment & Plan narrative: Complicated urinary tract infection acute on chronic risk of urosepsis. Patient is on antibiotics. White count is stable she has had no fever and otherwise seems to be doing well. No other significant change. Obstructive uropathy with overflow incontinence and detrusor instability and indwelling catheter. Question really is whether not she is obstructed. And whether her renal failure changes secondary to her acute obstruction. Certainly it appears as if her recurring infection is related to that. I discussed with Dr. Cho today and he feels as if in the past has not been obstructive although it has been with bilateral hydronephrosis. He felt like he had a renogram which showed that she was not obstructed. He does not feel he can do anything here surgically and recommends a renogram. We will obtain that today it to. If that shows obstructive issues will need to consider transfer acutely for Interventional Radiology to place nephrostomy tubes. And then return. Clearly the best thing would be for transfer but there are no beds available in the region and at this point she is not able to be transferred. It was be better if this was all taken care in [address] place. This will all be depending on what the renogram shows. Certainly if there is obstruction full need to make that I will contact interventional radiologist today. No other changes. Re-evaluate after renogram. Acute on chronic renal failure. Stable at this time. Question whether this is secondary obstruction or other causes. Probably will need dialysis. Certainly needs a nephrologists. We have discussed to them on the phone and transfers recommended and will be followed and transferred as soon as possible. At this point is not clear when that will be. Certainly the region is overloaded at this to be a long-term issue and will continue to follow. Hematuria not an issue at this time. Diabetes type 2 stable at this time will follow Paroxysmal atrial fibrillation a first-degree AV block. Chronic heart rates have been stable continue meds. Hypertension stable. Chronic morbid obesity no changes. Chronic pain. Stable. Disposition. Would hope to transfer but at this point it does not look clear. Looking at possible transferred to [facility] for at least urostomy tubes if they are indicated and will see how things go. Otherwise re-evaluate in a.m.. Serious nature discussed with patient. She understands questions answered. 90 minutes spent in coordination of care and floor Quality VTE Deep Vein Thrombosis/Pulmonary Embolism Present on Admission: No
[2020-10-26] MEDS: SODIUM CHLORIDE 0.9% FLUSH 10 ML IV ×2 (09:24→20:40)
[2020-10-26] MEDS: GABAPENTIN 300 MG CAPSULE PO ×3 (09:25→20:40)
[2020-10-26] MEDS: CITALOPRAM 10 MG TABLET PO (09:25)
[2020-10-26] MEDS: ASPIRIN 81 MG CHEW TAB PO (09:25)
--- NOTE | 2020-10-26 10:05 | DI.NM.S_ITS ---
PROCEDURE: NM RENAL FUNCTION W LASIX RADIOPHARMACEUTICAL: 10.3 mCi Tc-99m MAG3 IV and 40 mg furosemide IV. INDICATIONS: Elevated gfr and creatinine, complicated UTI TECHNIQUE: The patient was hydrated orally before the examination was begun. After intravenous administration of Tc-99m MAG3, posterior abdominal radionuclide angiogram and sequential (1 minute each frame) renal images were obtained. A time-activity curve for each kidney was generated and analyzed. To evaluate for obstruction, the patient was given 40 mg furosemide via slow intravenous injection after the start of the examination. Sequential images were obtained for up to an additional 20 minutes. COMPARISON: [facility], CT, CT KIDNEY URETER BLADDER (KUB), 10/23/2020, 12:59. FINDINGS: Perfusion: There is normal vascular flow to both kidneys. Morphology: Left kidney is diminished in size relative to the right. Radiotracer identified in dilated left genital urinary collecting system. No radiotracer identified in the right genitourinary collecting system. Function: Both kidneys demonstrate normal cortical tracer uptake, with [id number] activity ranging from 3 to 5 minutes. The right kidney contributes 24 % of total renal function. The left kidney contributes 76 % of total renal function. Lasix stimulation: After diuretic administration, there is no significant clearance of tracer activity from the renal collecting systems in both kidneys. The half-time of emptying of tracer activity from the right pelvicaliceal system is indeterminate due to severe diminished tracer clearance. The half-time of emptying from the left pelvicaliceal system is indeterminate due to severe diminished tracer clearance. Normal emptying half-times are less than 10 minutes; borderline ranges are from 10 to 20 minutes. IMPRESSION: Abnormal study demonstrating bilateral high-grade obstruction. Renal split function 76% left kidney and 24% right kidney. Half emptying time of the pelvicaliceal systems is indeterminate due to severely diminished tracer clearance. Dictated by: Elicia Benitez MD, PhD on 10/26/2020 at 14:38 Approved by: Elicia Benitez MD, PhD on 10/26/2020 at 14:54
--- NOTE | 2020-10-26 11:15 | PT.IPTN ---
Current Diagnoses Urinary tract infection, site not specified (10/23/20) Physical Therapy Treatment Note M2 PT-IP Current Condition Start: 10/24/20 08:44 Freq: NEEDED Status: Active Protocol: Document 10/25/20 17:13 MA (Rec: 10/25/20 17:26 MA [id number]) Physical Therapy Current Condition Current Condition Evaluation Date 10/24/20 Treatment Diagnosis UTI, CAYETANO; impaired mobility and gait Onset Date 10/23/20 Precautions Other Precautions indwelling navarro catheter; falls M3 PT-IP Subjective Start: 10/24/20 08:44 Freq: NEEDED Status: Active Protocol: Document 10/26/20 11:15 LR (Rec: 10/26/20 13:09 [facility] [id number]) Subjective Physical Therapy Visit Type Type Treatment Note Visit Start Time 10:40 Visit Stop Time 11:14 Total Visit Minutes 34 Number of [employer]ADER Visits 0 Physical Therapy Visit Comments Patient Comments Pt reports dizziness when standing more than sitting Therapy Pain Assessment Pain When Pain Assessed During Mobility Pain Present Pain Present Denied Pain M4 PT-IP Mobility and Gait Start: 10/24/20 08:44 Freq: NEEDED Status: Active Protocol: Document 10/26/20 11:15 LR (Rec: 10/26/20 13:09 [facility] [id number]) PT-Transfer Assessment Sit to and From Stand Sit to and from Stand Standby Assistance,Use of Upper Extremities Equipment Transfer Assistive Device Gait Belt,4 Wheeled Walker Orthotic/Prosthetic Devices or Brace: No Gait Assessment Gait Gait Assistance Required: Standby Assistance Distance (Feet) 80 Assistive Devices Assistive Device Gait Belt,4 Wheeled Walker Orthotic/Prosthetic Devices or Brace: No Gait Deviations General Gait Pattern Antalgic,Flexed Trunk,Lateral Trunk Lean,Wide Based Gait Factors Limiting Gait Function Factors Limiting Gait Function Decreased Activity Tolerance, Decreased Sensation,Poor Balance Comments Gait Comments sit to stand SBA to chair. Pt stood SBA for BP reading (134/ 78)-BP cuff did take a while to read. She was able to reach for mask and don mask SBA. She amb w/4WW SBA for 80ft in hallway w/1 short standing rest break. Pt was signficiantly out of breath from amb. After exercises, pt left seatedi n chair w/call light in reach and in room. M5 PT-IP Objective Assessments Start: 10/24/20 08:44 Freq: NEEDED Status: Active Protocol: Document 10/24/20 10:49 AW (Rec: 10/24/20 11:38 AW [id number]) Orientation Orientation/Cognition Level of Alertness Alert Orientation Name,Day of Week,Place, Situation Language Function Ability No Deficits Noted Safety Awareness Understands Safety Issues Memory Description No Deficits Noted Gross Range of Motion Lower Extremity ROM Assessment Within Functional Limits Strength Lower Extremity Strength Assessment Bilaterally Impaired Hip 4/5 Knee 4+/5 Ankle 4/5 Sensation Assessment Sensation Gross Sensation Right LE Impaired,Left LE Impaired Light Touch Impaired Proprioception (Position) Impaired Sensation Description Numbness Comments Sensation Comments B feet numb on plantar aspects with left more affected than right. Pt states this is a result of a poor surgical outcome following lumbar surgery years ago. Muscle Tone Muscle Tone WNL Yes M6 PT-IP Treatment Start: 10/24/20 08:44 Freq: NEEDED Status: Active Protocol: Document 10/26/20 11:15 [facility] (Rec: 10/26/20 13:09 [facility] [id number]) Physical Therapy Treatment Other Treatments Other Treatment Performed seated: APs, hip ER, Hip abd, knee ext/flex, may M7 PT-IP Assessment and Plan Start: 10/24/20 08:44 Freq: NEEDED Status: Active Protocol: Document 10/26/20 11:15 [facility] (Rec: 10/26/20 13:09 [facility] [id number]) PT Summary Assessment and Plan Summary Impairments Strength,Balance,Sensation,Bed Mobility,Transfers,Gait, Activity Tolerance Assessment Summary pt did well with all mobility and showed more activity tolerance today. She was able to walk in [place] but was fatigued by walk in hallway. She tolerated seated exercises well and was educated to these on her own. She still has dec activity tolerance at this time with her mobility so would benefit from further care (HH vs SNF) for rehab. Goals Bed Mobility Goal Independent Transfer Goal Independent,Four Wheeled Walker Gait Goal Independent,Four Wheel Walker Gait Distance 200 Other Goals - up/down 5 steps with narrow B rails SBA Days to Meet Goals 5 Frequency of Treatment Frequency Of Treatment Once a Day Treatment Plan Physical Therapy Treatment Plan Bed Mobility Training,Transfer Training,Gait Training, Therapeutic Exercise,Balance Retraining,Discharge Planning, Neuromuscular Re-ed Other Recommendations and Next Treatment gait training with 4WW for Focus endurance; stairs as able Precautions Other Precautions indwelling navarro catheter; falls Recommendations To Nursing Amount of Assist Needed Standby Assistance Discharge Recommendations PT Discharge Recommendations Home with Assistance,Home Health,SNF Rehab,Home vs SNF Transportation Needs at Discharge Private Vehicle
[2020-10-26 11:18] LABS: Clostridium Difficile Tox PCR Negative for C. diff (Negative)
--- NOTE | 2020-10-26 13:22 | CM.DPC ---
DCP Cont: Dr. Carrasco came in and discussed some plans regarding patient. Since patient has not yet been able to be transferred, he will be looking in to getting in touch with [facility] for a possible Renagram, which would be involving draining of the kidneys, and then, patient would return here. He will attempt for today, but he is not sure if it will happen. Patient is currently under [facility] services for indwelling catheter, including nursing, P.T, O.T, and personal caregivers 5 times a week. P: DCP to continue to follow for any needs or resources. At this time, patient is not medically stable for discharge. Didi Rowland RN/Registered Account Administrator
[2020-10-26] MEDS: cefTRIAXone 1,000 MG in SODIUM CHLORIDE 0.9% 100 ML 200 ML IV (13:23)
--- NOTE | 2020-10-26 14:26 | OT.IPNOTE ---
Pt gone form room for renogram, to check on pt tomorrow for OT.
[2020-10-26] MEDS: ONDANSETRON 4 MG/2 ML INJ IV (16:48)
--- NOTE | 2020-10-26 17:11 | P.CONS_ITS ---
History of Present Illness Consult details Date Patient Seen: 10/26/20 Time Patient Seen: 17:11 Chief complaint: cath not draining correct/ vomitting Reason for consult: Acute kidney injury Requesting provider: Melquiades Carrasco Narrative: The patient is an 85-year-old white female well known to me previously. She is admitted on 10/23/2020, for further evaluation and management of nausea, GI upset, and decreased urine output per indwelling Aragon catheter. She has a known history of nephrolithiasis on the left previously treated. She has known history of bilateral hydronephrosis. She has known history of noncompliance and hyperreflexic bladder. She has known history of incompetent bladder outlet resulting in more less continuous urinary incontinence. She has a known history of recurrent UTI despite usual remedies for postmenopausal women. Urine culture 10/23/2020, grew E coli. MAG3 Lasix renogram 09/04/2019, identified mildly decreased right renal function with a relative total renal function of 74%. The left kidney demonstrated decreased function of 26% relative and a prolongation of clearance of radiotracer. The patient was not in pain and did not have signs or symptoms of pyelonephritis at that time or since then. MAG3 Lasix renogram performed today indicates interval progression of bilateral upper tract obstruction and associated renal decompensation. Meds Home Medications and Allergies Home Medications Medication Instructions Recorded Confirmed Type aspirin 81 mg chewable tablet 81 mg PO QDAY #0 01/31/16 10/23/20 History citalopram 10 mg tablet 10 mg PO QDAY #0 01/31/16 10/23/20 History gabapentin 300 mg capsule 300 mg PO TID #0 01/31/16 10/23/20 History (Neurontin) levothyroxine 100 mcg tablet 100 mcg PO QAM #0 01/31/16 10/23/20 History metoprolol succinate 50 mg 50 mg PO DAILY 08/04/19 10/23/20 History tablet,extended release 24 hr triamcinolone acetonide 0.1 % 1 applic TOPICAL PRN PRN 09/05/20 10/23/20 History topical cream tramadol 50 mg tablet 50 mg PO Q6H PRN #10 tab 09/06/20 10/23/20 Rx ciprofloxacin HCl 500 mg tablet 500 mg PO BID #10 tab 09/27/20 10/23/20 Rx fluconazole 150 mg tablet 150 mg PO DAILY #1 tab 09/27/20 10/23/20 Rx (Diflucan) ospemifene 60 mg tablet (Osphena) See Rx Instructions .ROUTE 10/18/20 10/23/20 Rx .COMPLEX #90 tab Allergies Allergy/AdvReac Type Severity Reaction Status Date / Time alcohol Allergy Severe Rash, Verified 10/23/20 11:20 facial swelling amphotericin B AdvReac Severe Jittery, Verified 10/23/20 11:20 [AMPHOTERICIN B] tremors Exam Vital Signs (past 8 hours): - 10/26/20 09:40 10/26/20 12:05 10/26/20 15:35 Temperature 97.8 F 97.7 F Pulse Rate 94 H 99 H Respiratory Rate 24 15 Blood Pressure 104/62 93/63 Pulse Oximetry 96 97 100 Oxygen Delivery Method Room Air Oxygen Flow Rate 0 Narrative Exam Narrative: Not repeated. Objective Labs Result Diagrams: 10/26/20 04:58 10/26/20 04:58 Labs: Laboratory Results - last 24 hr 10/25/20 10/25/20 10/26/20 19:13 23:58 04:58 WBC 13.9 H RBC 3.48 L Hgb 9.6 L Hct 29.9 L MCV 85.9 MCH 27.5 MCHC 32.0 RDW 15.6 H Plt Count 298 Neut % (Auto) 79.6 H Lymph % (Auto) 7.2 L [place] % (Auto) 10.4 Eos % (Auto) 2.2 Baso % (Auto) 0.6 Neut # (Auto) 94527 H Lymph # (Auto) 1000 L [place] # (Auto) 1400 H Eos # (Auto) 300 Baso # (Auto) 100 Sodium 136 L 136 L Potassium 4.9 5.4 H Chloride 110 H 110 H Carbon Dioxide 16 L 17 L BUN 69 H 70 H Creatinine 4.88 H 4.79 H Estimated GFR 8.5 L 8.6 L BUN/Creatinine Ratio 14.1 14.6 Glucose 150 H 113 H Calcium 8.9 8.8 Total Bilirubin AST ALT Alkaline Phosphatase Total Protein Albumin Globulin Albumin/Globulin Ratio C. difficile Tox (PCR) 10/26/20 10/26/20 04:58 08:31 WBC RBC Hgb Hct MCV MCH MCHC RDW Plt Count Neut % (Auto) Lymph % (Auto) [place] % (Auto) Eos % (Auto) Baso % (Auto) Neut # (Auto) Lymph # (Auto) [place] # (Auto) Eos # (Auto) Baso # (Auto) Sodium 134 L Potassium 5.1 Chloride 112 H Carbon Dioxide 14 L BUN 71 H Creatinine 4.59 H Estimated GFR 9.1 L BUN/Creatinine Ratio 15.5 Glucose 162 H Calcium 8.6 Total Bilirubin < 0.1 L AST 34 ALT 36 H Alkaline Phosphatase 96 Total Protein 6.0 L Albumin 2.6 L Globulin 3.4 Albumin/Globulin Ratio 0.8 L C. difficile Tox (PCR) Negative for c. diff Assessment & Plan Assessment & Plan narrative: Assessment: 1. CAYETANO 2. CKD 3. History of recurrent UTI/current E coli UTI 4. Neurogenic bladder. 5. Bilateral upper tract decompensation secondary to neurogenic bladder. Plan: 1. Recommend urgent outside referral for urgent placement of right percutaneous nephrostomy. Option to drain the left could be considered, but at this juncture retrieving and protecting the dominant right renal function is paramount. [facility] does not have interventional radiology staff for facilities to accommodate patient's current need.
[2020-10-26] MEDS: OSPEMIFENE 60 MG 60 EACH PO (18:13)
[2020-10-26] MEDS: LACTOBACILLUS ACIDOPHILUS TABLET 1 EACH PO (18:13)
--- NOTE | 2020-10-26 18:30 | PM.PN.1 ---
Subjective Subjective Date Patient Seen: 10/26/20 Time Patient Seen: 18:30 Interval history: Patient feeling a little better but tired after procedure. Exam Vital Signs (past 8 hours): - 10/26/20 12:05 10/26/20 15:35 Temperature 97.8 F 97.7 F Pulse Rate 94 H 99 H Respiratory Rate 24 15 Blood Pressure 104/62 93/63 Pulse Oximetry 97 100 Oxygen Delivery Method Room Air Oxygen Flow Rate 0 Objective Labs Result Diagrams: 10/26/20 04:58 10/26/20 04:58 Labs: Laboratory Results - last 24 hr 10/25/20 10/25/20 10/26/20 19:13 23:58 04:58 WBC 13.9 H RBC 3.48 L Hgb 9.6 L Hct 29.9 L MCV 85.9 MCH 27.5 MCHC 32.0 RDW 15.6 H Plt Count 298 Neut % (Auto) 79.6 H Lymph % (Auto) 7.2 L [place] % (Auto) 10.4 Eos % (Auto) 2.2 Baso % (Auto) 0.6 Neut # (Auto) 39016 H Lymph # (Auto) 1000 L [place] # (Auto) 1400 H Eos # (Auto) 300 Baso # (Auto) 100 Sodium 136 L 136 L Potassium 4.9 5.4 H Chloride 110 H 110 H Carbon Dioxide 16 L 17 L BUN 69 H 70 H Creatinine 4.88 H 4.79 H Estimated GFR 8.5 L 8.6 L BUN/Creatinine Ratio 14.1 14.6 Glucose 150 H 113 H Calcium 8.9 8.8 Total Bilirubin AST ALT Alkaline Phosphatase Total Protein Albumin Globulin Albumin/Globulin Ratio C. difficile Tox (PCR) 10/26/20 10/26/20 04:58 08:31 WBC RBC Hgb Hct MCV MCH MCHC RDW Plt Count Neut % (Auto) Lymph % (Auto) [place] % (Auto) Eos % (Auto) Baso % (Auto) Neut # (Auto) Lymph # (Auto) [place] # (Auto) Eos # (Auto) Baso # (Auto) Sodium 134 L Potassium 5.1 Chloride 112 H Carbon Dioxide 14 L BUN 71 H Creatinine 4.59 H Estimated GFR 9.1 L BUN/Creatinine Ratio 15.5 Glucose 162 H Calcium 8.6 Total Bilirubin < 0.1 L AST 34 ALT 36 H Alkaline Phosphatase 96 Total Protein 6.0 L Albumin 2.6 L Globulin 3.4 Albumin/Globulin Ratio 0.8 L C. difficile Tox (PCR) Negative for c. diff PFSH Medical History Anxiety Calculus of kidney Depression GI bleed Gross hematuria History of recurrent UTI (urinary tract infection) HTN (hypertension) Hypothyroid Nephrolithiasis Noncompliant neurogenic bladder Obstructive uropathy MORGAN on CPAP Peptic ulcer disease Pneumothorax Postmenopausal atrophic vaginitis Ureteral obstruction, left Urinary incontinence, mixed Surgical History H/O gastric bypass H/O mastectomy History of back surgery History of hip replacement History of thyroidectomy Hx of bilateral cataract extraction (2012) Hx of cystoscopy (08/04/19) Nephrostomy status Family History Father Seizures Mother Heart disease Diabetes mellitus Brother No significant medical problems Sister Diabetes mellitus Grandmother Diabetes mellitus Social History household members: spouse Smoking Status: Never smoker alcohol intake: never eating out: rarely or never Type(s) of exercise: none Assessment & Plan Assessment & Plan narrative: Hydronephrosis and ureteral obstruction. Renal scan shows bilateral obstruction. This is different than it has been in the past. Probable cause of her renal failure. I had previously discussed with interventional radiologist at [facility] and it appears as if we will be able to get urostomy is placed tomorrow. I believe we have everything set up at this time. I had a long discussion with patient. I do not think this is going to be a temporary issue since it appears as if the problem with bladder and the ureters is not something that is amenable to being fixed. It is unclear to me exactly the reason behind it but urology does not feel that it is repairable. Stents are not going to work from their perspective and either we placed these and probably have them permanently placed or she will have permanent renal failure and required dialysis. This may be the case anyway depending on her response but at this point due to the fact that we are unable to transfer and get any further therapy this is our best chance at this time. We had a long discussion about this today she understands questions were answered and we will proceed for transfer and placement tomorrow with bringing her back. Renal failure. Severe. I am hoping that once we get her kidneys drain that they possibly will start working better. I discussed with her that is unclear whether that will be true it would be best if we had a isolation washer on site and possible dialysis but we were unable to transfer at this time. She understands that. In the meantime will see what happens once we relieve the pressure on the kidneys and hopefully this will fix her issues whether not her kidneys return as unclear. She understands this she understands long-term situation and the possibility of long-term dialysis. We will follow. Questions were answered. Quality VTE Deep Vein Thrombosis/Pulmonary Embolism Present on Admission: No
[2020-10-26] MEDS: TRAMADOL 50 MG TABLET PO (21:03)
[2020-10-26] MEDS: ZOLPIDEM 5 MG TABLET PO (23:59)
[2020-10-27 05:00] LABS: Add Manual Diff / Slide Review NO; Basophils Absolute Auto 100 /uL (0-100); Basophils Percent Auto 0.8 % (0-2); Eosinophils Absolute Auto 200 /uL (0-450); Eosinophils Percent Auto 1.8 % (2-4); Hematocrit 32.1 % (36-46); Hemoglobin 10.3 g/dL (12.0-16.0); Lymphocytes Absolute Auto 1600 /uL (1100-4500); Lymphocytes Percent Auto 11.7 % (25-40); Mean Corpuscular Hemoglobin 27.6 PG (26-34); Mean Corpuscular Volume 86.2 fL (80-100); Monocytes Absolute Auto 1500 /uL (0-900); Monocytes Percent Auto 10.8 % (3-14); Neutrophils Absolute Auto 10100 /uL (1500-7000); Neutrophils Percent Auto 74.9 % (50-75); Platelet Count 320 X10^3/uL (150-400); Red Blood Cell Count 3.72 X10^6/uL (4.0-5.2); Red Cell Distribution Width 15.5 % (11.6-14.8); White Blood Cell Count 13.5 X10^3/uL (4.5-11.0)
[2020-10-27 05:10] LABS: Alanine Aminotransferase 41 IU/L (<35); Albumin 2.9 g/dL (3.5-5.0); Albumin Globulin Ratio 0.8 (1.0-2.8); Alkaline Phosphatase 113 U/L (38-126); Aspartate Aminotransferase 35 IU/L (14-36); Bilirubin Total 0.3 mg/dL (0.2-1.3); Blood Urea Nitrogen 72 mg/dL (7-17); Calcium 8.9 mg/dL (8.4-10.2); Carbon Dioxide 15 mmol/L (22-32); Chloride 108 mmol/L (98-107); Estimated Glomerular Filt Rate 8.6 mL/min (>60); Globulin 3.7 g/dL (1.7-4.1); Glucose 107 mg/dL (80-110); HEMOLYSIS < 15 (0-50); Sodium 133 mmol/L (137-145); Total Protein 6.6 g/dL (6.3-8.2)
[2020-10-27 05:14] LABS: Potassium 5.6 mmol/L (3.4-5.1)
[2020-10-27 05:56] VITALS: BP 105/76; PULSE 89; RESP 16; TEMP 36.4; O2SAT 96
--- NOTE | 2020-10-27 09:35 | OT.IPNOTE ---
Per nursing pt at [facility] for medical procedure and to be back later.
--- NOTE | 2020-10-27 10:03 | PM.PN.1 ---
Subjective Subjective Date Patient Seen: 10/27/20 Time Patient Seen: 07:15 Interval history: Made rounding visit on patient. Patient absent currently due to temporary transfer to [facility] for IR procedure. Exam Vital Signs (past 8 hours): - 10/27/20 05:56 Temperature 97.6 F Pulse Rate 89 Respiratory Rate 16 Blood Pressure 105/76 Pulse Oximetry 96 Oxygen Delivery Method Room Air Oxygen Flow Rate 0 Objective Labs Result Diagrams: 10/27/20 04:38 10/27/20 04:38 Labs: Laboratory Results - last 24 hr 10/26/20 10/27/20 10/27/20 08:31 04:38 04:38 WBC 13.5 H RBC 3.72 L Hgb 10.3 L Hct 32.1 L MCV 86.2 MCH 27.6 MCHC 32.0 RDW 15.5 H Plt Count 320 Neut % (Auto) 74.9 Lymph % (Auto) 11.7 L [place] % (Auto) 10.8 Eos % (Auto) 1.8 L Baso % (Auto) 0.8 Neut # (Auto) 27356 H Lymph # (Auto) 1600 [place] # (Auto) 1500 H Eos # (Auto) 200 Baso # (Auto) 100 Sodium 133 L Potassium 5.6 H Chloride 108 H Carbon Dioxide 15 L BUN 72 H Creatinine 4.80 H Estimated GFR 8.6 L BUN/Creatinine Ratio 15.0 Glucose 107 Calcium 8.9 Total Bilirubin 0.3 AST 35 ALT 41 H Alkaline Phosphatase 113 Total Protein 6.6 Albumin 2.9 L Globulin 3.7 Albumin/Globulin Ratio 0.8 L C. difficile Tox (PCR) Negative for c. diff [facility] Medical History Anxiety Calculus of kidney Depression GI bleed Gross hematuria History of recurrent UTI (urinary tract infection) HTN (hypertension) Hypothyroid Nephrolithiasis Noncompliant neurogenic bladder Obstructive uropathy MORGAN on CPAP Peptic ulcer disease Pneumothorax Postmenopausal atrophic vaginitis Ureteral obstruction, left Urinary incontinence, mixed Surgical History H/O gastric bypass H/O mastectomy History of back surgery History of hip replacement History of thyroidectomy Hx of bilateral cataract extraction (2012) Hx of cystoscopy (08/04/19) Nephrostomy status Family History Father Seizures Mother Heart disease Diabetes mellitus Brother No significant medical problems Sister Diabetes mellitus Grandmother Diabetes mellitus Social History household members: spouse Smoking Status: Never smoker alcohol intake: never eating out: rarely or never Type(s) of exercise: none Assessment & Plan Assessment & Plan narrative: Assessment: 1. As per assessment 10/26/2020. Plan: 1. Anticipate improved CAYETANO following proximal diversion of high-grade bilateral renal obstruction. 2. Agree with current therapy for E coli UTI. Quality VTE Deep Vein Thrombosis/Pulmonary Embolism Present on Admission: No
--- NOTE | 2020-10-27 12:38 | CM.DPC ---
DCP Cont: Was going to check in with patient today, but found out that she was transferred over to [facility] for a procedure, including nephrostomy tube. She will be coming back to this hospital after the procedure. Will continue to check in to ensure that home with home health is the plan. P: DCP will continue to check in. She is currently at [facility] for a procedure, but is expected to return. Will need to continue to check in regarding discharge planning. Didi Rowland RN/Miniature Set Builder
--- NOTE | 2020-10-27 13:30 | PT-IP ANOTE ---
checked on pt and pt out of the facility. per NAC, pt is out in [facility] for sx and will come back to this hospital afterwards.
[2020-10-27 14:00] VITALS: BP 98/52; PULSE 95; RESP 18; TEMP 35.8; O2SAT 95
[2020-10-27 14:30] VITALS: BP 100/40; PULSE 67; RESP 20; TEMP 35.8; O2SAT 95
[2020-10-27] MEDS: GABAPENTIN 300 MG CAPSULE PO ×2 (14:58→21:26)
[2020-10-27] MEDS: cefTRIAXone 1,000 MG in SODIUM CHLORIDE 0.9% 100 ML 200 ML IV (14:58)
[2020-10-27 15:25] VITALS: BP 108/57; PULSE 84; RESP 18; TEMP 36.2
[2020-10-27] MEDS: LACTOBACILLUS ACIDOPHILUS TABLET 1 EACH PO (16:35)
[2020-10-27] MEDS: OSPEMIFENE 60 MG 60 EACH PO (16:35)
[2020-10-27] MEDS: ONDANSETRON 4 MG/2 ML INJ IV (16:38)
--- NOTE | 2020-10-27 17:57 | PT-IP ANOTE ---
checked on pt earlier this afternoon but was not back from [facility] yet. will f/u tomorrow.
--- NOTE | 2020-10-27 17:58 | PM.PN.1 ---
Subjective Subjective Date Patient Seen: 10/27/20 Time Patient Seen: 04:30 Interval history: CC: I'm tired Today pt went on non-transfer field trip to [facility] where she received nephrostomy tubes with good urine output since. She is now back and resting comfortably. Exam Vital Signs (past 8 hours): - 10/27/20 14:00 10/27/20 14:30 10/27/20 15:25 Temperature 96.5 F L 96.5 F L 97.2 F L Pulse Rate 95 H 67 84 Respiratory Rate 18 20 18 Blood Pressure 98/52 L 100/40 L 108/57 L Pulse Oximetry 95 95 Oxygen Delivery Method Room Air Oxygen Flow Rate 0 Narrative Exam Narrative: tired-looking elder in bed with nephrostomy tubes draining clear yellow urine Const General: cooperative, healthy appearing and comfortable [facility] Head: normal to inspection, normocephalic and atraumatic Eyes General: appearance normal, both eyes and all related structures Neck Neck: normal visual inspection Resp Effort & Inspection: normal respiratory effort and able to speak in complete sentences Cardio Other: irregularly irregular rhythm normal rate S1/S2 GI Inspection: normal to inspection Back/Spine/Pelvis Other: nephrostomy tubes in place Skin General: no rashes or lesions noted Neuro General: patient alert, patient awake, patient oriented x3, moves all extremities and CN's II-XI intact bilaterally Extrem General: full ROM Right upper extremity: wrist Details: swelling and normal ROM; Negative for no crepitus Psych Appearance: grossly normal and well kempt Objective Labs Result Diagrams: 10/27/20 04:38 10/27/20 04:38 Labs: Laboratory Results - last 24 hr 10/27/20 10/27/20 04:38 04:38 WBC 13.5 H RBC 3.72 L Hgb 10.3 L Hct 32.1 L MCV 86.2 MCH 27.6 MCHC 32.0 RDW 15.5 H Plt Count 320 Neut % (Auto) 74.9 Lymph % (Auto) 11.7 L [place] % (Auto) 10.8 Eos % (Auto) 1.8 L Baso % (Auto) 0.8 Neut # (Auto) 47314 H Lymph # (Auto) 1600 [place] # (Auto) 1500 H Eos # (Auto) 200 Baso # (Auto) 100 Sodium 133 L Potassium 5.6 H Chloride 108 H Carbon Dioxide 15 L BUN 72 H Creatinine 4.80 H Estimated GFR 8.6 L BUN/Creatinine Ratio 15.0 Glucose 107 Calcium 8.9 Total Bilirubin 0.3 AST 35 ALT 41 H Alkaline Phosphatase 113 Total Protein 6.6 Albumin 2.9 L Globulin 3.7 Albumin/Globulin Ratio 0.8 L PFSH Medical History Anxiety Calculus of kidney Depression GI bleed Gross hematuria History of recurrent UTI (urinary tract infection) HTN (hypertension) Hypothyroid Nephrolithiasis Noncompliant neurogenic bladder Obstructive uropathy MORGAN on CPAP Peptic ulcer disease Pneumothorax Postmenopausal atrophic vaginitis Ureteral obstruction, left Urinary incontinence, mixed Surgical History H/O gastric bypass H/O mastectomy History of back surgery History of hip replacement History of thyroidectomy Hx of bilateral cataract extraction (2012) Hx of cystoscopy (08/04/19) Nephrostomy status Family History Father Seizures Mother Heart disease Diabetes mellitus Brother No significant medical problems Sister Diabetes mellitus Grandmother Diabetes mellitus Social History household members: spouse Smoking Status: Never smoker alcohol intake: never eating out: rarely or never Type(s) of exercise: none Assessment & Plan Assessment & Plan narrative: #Severe bilateral hydronephrosis with ureteral obstruction. Per renal scan in setting of poor UOP. Precise etiology unclear but urology does not feel that it is repairable. Now s/p nephrostomy with good UOP. #Acute renal failure stage four on chronic, new. Good UOP since returning. Will hydrate and hope kidney function improves. #Complicated urinary tract infection, acute on chronic, risk for sepsis Hopefully will improve now urine flow is resumed. continue rocephin monotherapy based on culture. Pt now has nephrostomy to bypass obstruction. If stable will likely be able to dc Aragon tomorrow. #hyperkalemia, acute stable, continue to trend, kayexalate if needed #Diabetes mellitus type 2 Diabetic diet. hold metformin for now. #Hematuria, chronic Likely due to infection/inflammation; KUB negative for nephrolithiasis. 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 q.day however continue to hold due to hypotension. Reasonable rate today. Continue aspirin. Telemetry. May resume tomorrow. #Hypertension, chronic Hold home metoprolol due to hypotension. Rehydrating and will trend vital signs and labs. Will continue to hold if BP <120/80. #Hyperlipidemia, chronic Continue home atorvastatin 40 mg PO qhs. #Hypothyroidism, chronic Continue home levothyroxine 100 mcg p.o. q.a.m. Will update TSH. #MORGAN, chronic Continue home CPAP. #Morbid obesity, chronic Patient is at risk for delayed and poor healing secondary to weight. #Chronic pain syndrome Continue home tramadol and gabapentin. #Atrophic vaginitis Continue home ospemifene. #Depression/anxiety Continue home citalopram. #R wrist pain and swelling mild, likely 2/2 malpositioning during procedure at [facility], monitor Code: DNR / DNI DVT prophylaxis: SCDs, further anticoagulation contraindicated secondary to history of epistaxis and history of GI bleed, encourage ambulation COVID: Negative Disposition: likely home with in a couple days Quality VTE Deep Vein Thrombosis/Pulmonary Embolism Present on Admission: No
[2020-10-27] MEDS: SODIUM CHLORIDE 0.45% 1,000 ML 84 ML IV (19:05)
[2020-10-27] MEDS: TRAMADOL 50 MG TABLET PO (19:34)
[2020-10-27 19:35] VITALS: BP 108/57; PULSE 79; RESP 17; TEMP 36.2; O2SAT 98
[2020-10-27 19:54] LABS: Enterococcus species Not Detected (Not Detect); Listeria monocytogenes Not Detected (Not Detect); Staphylococcus species Detected (Not Detect)
[2020-10-27 19:55] LABS: Acinetobacter baumannii Not Detected (Not Detect); Candida albicans Not Detected (Not Detect); Candida glabrata Not Detected (Not Detect); Candida krusei Not Detected (Not Detect); Candida parapsilosis Not Detected (Not Detect); Candida tropicalis Not Detected (Not Detect); E. coli Not Detected (Not Detect); Enterobacter cloacae complex Not Detected (Not Detect); Enterobacteriaceae species Not Detected (Not Detect); Haemophilus influenzae Not Detected (Not Detect); Neisseria meningitidis Not Detected (Not Detect); Proteus species Not Detected (Not Detect); Pseudomonas aeruginosa Not Detected (Not Detect); Serratia marcescens Not Detected (Not Detect); Streptococcus agalactiae (Gr B Not Detected (Not Detect); Streptococcus pneumonia Not Detected (Not Detect); Streptococcus pyogenes (Gr A) Not Detected (Not Detect); Streptococcus species Not Detected (Not Detect)
[2020-10-27 23:54] VITALS: BP 101/55; PULSE 91; RESP 16; TEMP 36.2; O2SAT 98
[2020-10-28] MEDS: ACETAMINOPHEN 325 MG TABLET 650 MG PO ×2 (01:01→08:47)
[2020-10-28] MEDS: TRAMADOL 50 MG TABLET PO ×2 (05:47→21:41)
[2020-10-28] MEDS: LEVOTHYROXINE 100 MCG TABLET PO (05:48)
[2020-10-28 06:00] VITALS: BP 128/64; PULSE 85; RESP 16; TEMP 36.4; O2SAT 96
--- NOTE | 2020-10-28 06:19 | PC.NURSE ---
PIPE TESTER note: -425mL of light pink urine from right nephrostomy; -450mL of clear yellow urine from left nephrostomy. 0mL from navarro. Patient had an extra large bm shortly after draining her urine.
[2020-10-28 06:20] LABS: Add Manual Diff / Slide Review NO; Basophils Absolute Auto 100 /uL (0-100); Basophils Percent Auto 0.5 % (0-2); Eosinophils Absolute Auto 300 /uL (0-450); Eosinophils Percent Auto 2.1 % (2-4); Hematocrit 30.8 % (36-46); Hemoglobin 9.8 g/dL (12.0-16.0); Lymphocytes Absolute Auto 1400 /uL (1100-4500); Lymphocytes Percent Auto 11.1 % (25-40); Mean Corpuscular HGB Conc 31.8 % (30-36); Mean Corpuscular Hemoglobin 27.4 PG (26-34); Mean Corpuscular Volume 86.1 fL (80-100); Monocytes Absolute Auto 1300 /uL (0-900); Monocytes Percent Auto 10.9 % (3-14); Neutrophils Absolute Auto 9400 /uL (1500-7000); Neutrophils Percent Auto 75.4 % (50-75); Platelet Count 323 X10^3/uL (150-400); Red Blood Cell Count 3.57 X10^6/uL (4.0-5.2); Red Cell Distribution Width 15.6 % (11.6-14.8); White Blood Cell Count 12.4 X10^3/uL (4.5-11.0)
[2020-10-28 06:24] LABS: Alanine Aminotransferase 32 IU/L (<35); Albumin 2.8 g/dL (3.5-5.0); Albumin Globulin Ratio 0.8 (1.0-2.8); Alkaline Phosphatase 109 U/L (38-126); Aspartate Aminotransferase 31 IU/L (14-36); BUN Creatinine Ratio 16.1 (6-22); Bilirubin Total 0.1 mg/dL (0.2-1.3); Blood Urea Nitrogen 65 mg/dL (7-17); Calcium 8.8 mg/dL (8.4-10.2); Carbon Dioxide 15 mmol/L (22-32); Chloride 108 mmol/L (98-107); Estimated Glomerular Filt Rate 10.5 mL/min (>60); Globulin 3.6 g/dL (1.7-4.1); Glucose 111 mg/dL (80-110); HEMOLYSIS < 15 (0-50); Sodium 131 mmol/L (137-145); Total Protein 6.4 g/dL (6.3-8.2)
[2020-10-28 06:33] LABS: Potassium 5.6 mmol/L (3.4-5.1)
[2020-10-28] MEDS: SODIUM CHLORIDE 0.45% 1,000 ML 84 ML IV (07:03)
[2020-10-28] MEDS: ONDANSETRON 4 MG/2 ML INJ IV ×2 (07:06→23:23)
[2020-10-28 08:21] VITALS: BP 100/68; PULSE 79; RESP 18; TEMP 36.1; O2SAT 95
[2020-10-28] MEDS: ASPIRIN 81 MG CHEW TAB PO (08:47)
[2020-10-28] MEDS: LACTOBACILLUS ACIDOPHILUS TABLET 1 EACH PO ×2 (08:47→18:39)
[2020-10-28] MEDS: CITALOPRAM 10 MG TABLET PO (08:47)
[2020-10-28] MEDS: GABAPENTIN 300 MG CAPSULE PO ×3 (08:47→20:17)
--- NOTE | 2020-10-28 08:54 | CM.DPC ---
DCP: continued: Case received, EMR reviewed and noted d/c order from 10/26. RN confirmed that this should have been cancelled as pt was pending a transfer that did not happen. Called [facility]. She stated RN coordinator was aware of this and they are working to correct/cancel the order. Pt went yesterday to [facility] for placement of nephrostomy tubes and the returned. DCP notes reviewed in detail and then checked in with pt. Discussed her initial plan for home with HH, very limited caregiving help, spouse with some cognitive loss. SNF option discussed as short term plan before pt goes back to [place]. She requests referral to [facility]. Is fully vaccinated and her will bring in her card. KARRIE De La Rosa updated on snf probability. Will discuss in Team Rounds and be following.
--- NOTE | 2020-10-28 11:19 | PT.IPTN ---
Current Diagnoses Urinary tract infection, site not specified (10/23/20) Physical Therapy Treatment Note M2 PT-IP Current Condition Start: 10/24/20 08:44 Freq: NEEDED Status: Active Protocol: Document 10/25/20 17:13 MA (Rec: 10/25/20 17:26 MA [id number]) Physical Therapy Current Condition Current Condition Evaluation Date 10/24/20 Treatment Diagnosis UTI, CAYETANO; impaired mobility and gait Onset Date 10/23/20 Precautions Other Precautions indwelling navarro catheter; falls M3 PT-IP Subjective Start: 10/24/20 08:44 Freq: NEEDED Status: Active Protocol: Document 10/28/20 11:03 CLB (Rec: 10/28/20 13:06 CLB [id number]) Subjective Physical Therapy Visit Type Type Treatment Note Visit Start Time 11:03 Visit Stop Time 11:19 Total Visit Minutes 16 Number of PUBLIC HEALTH WORKER Visits 1 Physical Therapy Visit Comments Patient Comments pt c/o right wrist pain. Therapy Pain Assessment Pain When Pain Assessed At Rest Pain Present Pain Present Pain Reported Location Right Hand Scale Used did not state M4 PT-IP Mobility and Gait Start: 10/24/20 08:44 Freq: NEEDED Status: Active Protocol: Document 10/28/20 11:03 CLB (Rec: 10/28/20 13:06 CLB [id number]) PT-Transfer Assessment Sit to and From Stand Sit to and from Stand Standby Assistance Equipment Transfer Assistive Device Gait Belt,4 Wheeled Walker Orthotic/Prosthetic Devices or Brace: No Transfers Transfer Destination Chair Transfer Ability Level of Assist Standby Assistance Comments Mobility Comments Pt able to stand from chair w/ o use UE's, Pt able to ambulate in turk ~120ft w/4WW/ SBA. Pt returned to chair sitting SBA. Pt left in reclined chair with all needs within reach. Gait Assessment Gait Gait Assistance Required: Standby Assistance Distance (Feet) 120 Assistive Devices Assistive Device Gait Belt,4 Wheeled Walker Orthotic/Prosthetic Devices or Brace: No Gait Deviations General Gait Pattern Antalgic,Flexed Trunk,Lateral Trunk Lean,Wide Based Gait Factors Limiting Gait Function Factors Limiting Gait Function Decreased Activity Tolerance, Decreased Sensation,Poor Balance Comments Gait Comments Pt with c/o SOB after gait with SpO2 on RA 97%. M5 PT-IP Objective Assessments Start: 10/24/20 08:44 Freq: NEEDED Status: Active Protocol: Document 10/24/20 10:49 AW (Rec: 10/24/20 11:38 AW [id number]) Orientation Orientation/Cognition Level of Alertness Alert Orientation Name,Day of Week,Place, Situation Language Function Ability No Deficits Noted Safety Awareness Understands Safety Issues Memory Description No Deficits Noted Gross Range of Motion Lower Extremity ROM Assessment Within Functional Limits Strength Lower Extremity Strength Assessment Bilaterally Impaired Hip 4/5 Knee 4+/5 Ankle 4/5 Sensation Assessment Sensation Gross Sensation Right LE Impaired,Left LE Impaired Light Touch Impaired Proprioception (Position) Impaired Sensation Description Numbness Comments Sensation Comments B feet numb on plantar aspects with left more affected than right. Pt states this is a result of a poor surgical outcome following lumbar surgery years ago. Muscle Tone Muscle Tone WNL Yes M6 PT-IP Treatment Start: 10/24/20 08:44 Freq: NEEDED Status: Active Protocol: Document 10/26/20 11:15 [facility] (Rec: 10/26/20 13:09 [facility] [id number]) Physical Therapy Treatment Other Treatments Other Treatment Performed seated: APs, hip ER, Hip abd, knee ext/flex, may M7 PT-IP Assessment and Plan Start: 10/24/20 08:44 Freq: NEEDED Status: Active Protocol: Document 10/28/20 11:03 CLB (Rec: 10/28/20 13:06 CLB [id number]) PT Summary Assessment and Plan Summary Impairments Strength,Balance,Sensation,Bed Mobility,Transfers,Gait, Activity Tolerance Assessment Summary Pt is SBA for sit-stand and gait with increase in gait distance to ~120ft w/4WW/SBA. Pt with c/o SOB after gait with SpO2 on RA 97%. Goals Bed Mobility Goal Independent Transfer Goal Independent,Four Wheeled Walker Gait Goal Independent,Four Wheel Walker Gait Distance 200 Other Goals - up/down 5 steps with narrow B rails SBA Days to Meet Goals 5 Frequency of Treatment Frequency Of Treatment Once a Day Treatment Plan Physical Therapy Treatment Plan Bed Mobility Training,Transfer Training,Gait Training, Therapeutic Exercise,Balance Retraining,Discharge Planning, Neuromuscular Re-ed Other Recommendations and Next Treatment gait training with 4WW; stairs Focus Precautions Other Precautions indwelling navarro catheter; falls Recommendations To Nursing Amount of Assist Needed Standby Assistance Discharge Recommendations PT Discharge Recommendations Home with Assistance,Home Health Transportation Needs at Discharge Private Vehicle
[2020-10-28 12:00] VITALS: BP 98/62; PULSE 96; RESP 18; TEMP 36.3; O2SAT 96
--- NOTE | 2020-10-28 12:19 | PM.PN.1 ---
Subjective Subjective Date Patient Seen: 10/28/20 Time Patient Seen: 07:15 Interval history: The patient is postprocedure day 1. Status post placement of right percutaneous nephrostomy for acute renal failure and bilateral upper tract obstruction. She you complains only of GI upset and diarrhea. She denies flank pain. Exam Vital Signs (past 8 hours): - 10/28/20 06:00 10/28/20 08:21 Temperature 97.6 F 97.0 F L Pulse Rate 85 79 Respiratory Rate 16 18 Blood Pressure 128/64 100/68 Pulse Oximetry 96 95 Oxygen Delivery Method Room Air Oxygen Flow Rate 0 Narrative Exam Narrative: She is a well-developed, morbidly obese white female resting comfortably in bed and in no distress. Timing is soft without tenderness or rebound. Right nephrostomy site is intact and outflow was nearly clear and straw colored. No clots seen. Objective Labs Result Diagrams: 10/28/20 05:07 10/28/20 05:07 Labs: Laboratory Results - last 24 hr 10/23/20 10/28/20 10/28/20 12:47 05:07 05:07 WBC 12.4 H RBC 3.57 L Hgb 9.8 L Hct 30.8 L MCV 86.1 MCH 27.4 MCHC 31.8 RDW 15.6 H Plt Count 323 Neut % (Auto) 75.4 H Lymph % (Auto) 11.1 L [place] % (Auto) 10.9 Eos % (Auto) 2.1 Baso % (Auto) 0.5 Neut # (Auto) 9400 H Lymph # (Auto) 1400 [place] # (Auto) 1300 H Eos # (Auto) 300 Baso # (Auto) 100 Sodium 131 L Potassium 5.6 H Chloride 108 H Carbon Dioxide 15 L BUN 65 H Creatinine 4.03 H Estimated GFR 10.5 L BUN/Creatinine Ratio 16.1 Glucose 111 H Calcium 8.8 Total Bilirubin 0.1 L AST 31 ALT 32 Alkaline Phosphatase 109 Total Protein 6.4 Albumin 2.8 L Globulin 3.6 Albumin/Globulin Ratio 0.8 L A. baumannii (PCR) Not detected Jana albicans (PCR) Not detected C. glabrata (PCR) Not detected C. krusei (PCR) Not detected C. parapsilosis (PCR) Not detected C. tropicalis (PCR) Not detected Enterobacteriac sp PCR Not detected E. cloacae complex PCR Not detected Enterococcus sp PCR Not detected E. coli (PCR) Not detected H. influenzae (PCR) Not detected Klebsiella oxytoca PCR Not detected Klebsiella pneumoniae Not detected List. monocytogenes PCR Not detected N. meningitidis (PCR) Not detected Proteus species (PCR) Not detected Serratia marcescens PCR Not detected Staphylococcus sp PCR Detected H Staph aureus (PCR) Not detected mecA-Methicil Res Gene Not Reportable Streptococcus sp PCR Not detected Group A Strep (PCR) Not detected Strep agalactiae (PCR) Not detected Strep pneumoniae (PCR) Not detected P. aeruginosa (PCR) Not detected Allison/B-Vanco Res Genes Not Reportable KPC-Carbap Res Gene PCR Not Reportable PFSH Medical History Anxiety Calculus of kidney Depression GI bleed Gross hematuria History of recurrent UTI (urinary tract infection) HTN (hypertension) Hypothyroid Nephrolithiasis Noncompliant neurogenic bladder Obstructive uropathy MORGAN on CPAP Peptic ulcer disease Pneumothorax Postmenopausal atrophic vaginitis Ureteral obstruction, left Urinary incontinence, mixed Surgical History H/O gastric bypass H/O mastectomy History of back surgery History of hip replacement History of thyroidectomy Hx of bilateral cataract extraction (2012) Hx of cystoscopy (08/04/19) Nephrostomy status Family History Father Seizures Mother Heart disease Diabetes mellitus Brother No significant medical problems Sister Diabetes mellitus Grandmother Diabetes mellitus Social History household members: spouse Smoking Status: Never smoker alcohol intake: never eating out: rarely or never Type(s) of exercise: none Assessment & Plan Assessment & Plan narrative: Assessment/Plan: 1. CAYETANO 2. CKD 3. History recurrent UTI 4. Neurogenic bladder with resultant bilateral upper tract decompensation. There is resultant bilateral severe hydronephrosis and tortuosity of the ureters. These anatomical scenario is associated with unreliable and poorly functioning internal ureteral stents. Current impression recommendation is that the patient should continue to have right indwelling nephrostomy, perhaps lifelong. 5. Right nephrostomy tube should be exchanged by IR Q 6 weeks. 6. Consider placement left antegrade percutaneous nephrostomy. There are tubing configurations that allow a Y-connector to be utilized so that all urine may be collected into a single reservoir. 7. Recommend ongoing consultation and follow-up with Nephrology. Quality VTE Deep Vein Thrombosis/Pulmonary Embolism Present on Admission: No
[2020-10-28] MEDS: SODIUM CHLORIDE 0.9% FLUSH 10 ML IV ×2 (12:33→20:22)
[2020-10-28] MEDS: cefTRIAXone 1,000 MG in SODIUM CHLORIDE 0.9% 100 ML 200 ML IV (12:46)
--- NOTE | 2020-10-28 12:50 | OT.IP.TRT ---
Current Diagnoses Urinary tract infection, site not specified (10/23/20) Occupational Therapy Treatment Note M2 OT-IP Current Condition Start: 10/25/20 11:10 Freq: Status: Active Protocol: Document 10/25/20 09:33 [facility] (Rec: 10/25/20 11:29 [facility] [id number]) Occupational Therapy Current Condition Current Condition Evaluation Date 10/25/20 Treatment Diagnosis UTI, decreased self care Diagnosis Onset Date 10/23/20 M3 OT- IP Subjective and Pain Start: 10/25/20 11:10 Freq: Status: Active Protocol: Document 10/28/20 12:58 [facility] (Rec: 10/28/20 13:07 [facility] [id number]) OT- Subjective Occupational Therapy Visit Type Type Treatment Note Visit Start Time 12:45 Visit Stop Time 12:53 Total Visit Minutes 8 Occupational Therapy Visit Comments Patient Comments Spoke at length regarding OT need for home with pt. Patient/Caregiver Goals TO go home. M4 OT- IP ADL's Start: 10/25/20 11:10 Freq: Status: Active Protocol: Document 10/28/20 12:58 [facility] (Rec: 10/28/20 13:07 [facility] [id number]) OT [id number] General Evaluation Self-Feeding Ability Independent OT ADL-Toileting Comments OT Toileting Comments Pt's main issue is having difficulty to keep herself clean for pericare needs. Continue to suggest getting a bidet of at least use of a spray bottle to help rinse her pericare areas as needed. Pt to continue to receive HH services when she goes home. M5 OT- IP IADL's Start: 10/25/20 11:10 Freq: Status: Active Protocol: Document 10/25/20 09:33 [facility] (Rec: 10/25/20 11:29 [facility] [id number]) OT-Instrumental Activities of Daily Living Home Safety Awareness Awareness of Need for Assistance at Home Good Awareness Ability to Problem Solve Emergency Able to Problem Solve Situations Meal Preparation Meal Preparation Caregiver Provides Assist Contract Accountant Contract Accountant Caregiver Provides Assist M8 OT- IP Objective Assessments Start: 10/25/20 11:10 Freq: Status: Active Protocol: Document 10/25/20 09:33 [facility] (Rec: 10/25/20 11:29 [facility] [id number]) OT Gross Range of Motion Upper Extremity Range of Motion Assessment Right Impaired ROM Impairments RUE 0-80 OT Strength Upper Extremity Strength Assessment Right Impaired M9 OT- IP Assessment and Plan Start: 10/25/20 11:10 Freq: Status: Active Protocol: Document 10/28/20 12:58 [facility] (Rec: 10/28/20 13:07 [facility] [id number]) OT Summary Assessment and Plan Potential Rehabilitation Potential Good Analytic Complexity at Evaluation Moderate Summary Assessment Summary Pt main barriers are having difficulty to keep herself clean for pericare needs. Pt looking to go home with her to assist and home health. Pt states does not feel she needs anymore for OT at this time. To touch base with pt tomorrow prior to discharging pt for OT services . Goals Grooming Goal Independent Dressing Goal Independent Toileting Goal Independent Bathing Goal Independent Toilet Transfer Goal Independent Shower Transfer Goal Independent Days to Meet Goals 3 Frequency of Treatment Frequency Of Treatment Once a Day Discharge Recommendations OT Discharge Recommendations Home with Assistance,Home Health Home Equipment Needs Bidet Transportation Needs at Discharge Private Vehicle
[2020-10-28 13:24] LABS: BUN Creatinine Ratio 16.8 (6-22); Blood Urea Nitrogen 63 mg/dL (7-17); Carbon Dioxide 15 mmol/L (22-32); Chloride 108 mmol/L (98-107); Estimated Glomerular Filt Rate 11.5 mL/min (>60); Glucose 120 mg/dL (80-110); HEMOLYSIS < 15 (0-50); Sodium 133 mmol/L (137-145)
--- NOTE | 2020-10-28 14:16 | P.PN_ITS ---
Subjective Subjective Date Patient Seen: 10/28/20 Time Patient Seen: 14:16 Interval history: Discussed case and reviewed imaging file with Dr. Joshi. For clarification purposes, the patient did have a left nephrostomy placed as well yesterday afternoon. Therefore she now has bilateral externally draining nephrostomies. I examined her in check the right flank this morning. I did not examine her left flank since I had not recommended or ordered a left percutan eous procedure. Exam Vital Signs (past 8 hours): - 10/28/20 08:21 10/28/20 12:00 Temperature 97.0 F L 97.3 F L Pulse Rate 79 96 H Respiratory Rate 18 18 Blood Pressure 100/68 98/62 Pulse Oximetry 95 96 Oxygen Delivery Method Room Air Oxygen Flow Rate 0 Narrative Exam Narrative: Not repeated. Objective Labs Result Diagrams: 10/28/20 05:07 10/28/20 12:17 Labs: Laboratory Results - last 24 hr 10/23/20 10/28/20 10/28/20 12:47 05:07 05:07 WBC 12.4 H RBC 3.57 L Hgb 9.8 L Hct 30.8 L MCV 86.1 MCH 27.4 MCHC 31.8 RDW 15.6 H Plt Count 323 Neut % (Auto) 75.4 H Lymph % (Auto) 11.1 L [place] % (Auto) 10.9 Eos % (Auto) 2.1 Baso % (Auto) 0.5 Neut # (Auto) 9400 H Lymph # (Auto) 1400 [place] # (Auto) 1300 H Eos # (Auto) 300 Baso # (Auto) 100 Sodium 131 L Potassium 5.6 H Chloride 108 H Carbon Dioxide 15 L BUN 65 H Creatinine 4.03 H Estimated GFR 10.5 L BUN/Creatinine Ratio 16.1 Glucose 111 H Calcium 8.8 Total Bilirubin 0.1 L AST 31 ALT 32 Alkaline Phosphatase 109 Total Protein 6.4 Albumin 2.8 L Globulin 3.6 Albumin/Globulin Ratio 0.8 L A. baumannii (PCR) Not detected Jana albicans (PCR) Not detected C. glabrata (PCR) Not detected C. krusei (PCR) Not detected C. parapsilosis (PCR) Not detected C. tropicalis (PCR) Not detected Enterobacteriac sp PCR Not detected E. cloacae complex PCR Not detected Enterococcus sp PCR Not detected E. coli (PCR) Not detected H. influenzae (PCR) Not detected Klebsiella oxytoca PCR Not detected Klebsiella pneumoniae Not detected List. monocytogenes PCR Not detected N. meningitidis (PCR) Not detected Proteus species (PCR) Not detected Serratia marcescens PCR Not detected Staphylococcus sp PCR Detected H Staph aureus (PCR) Not detected mecA-Methicil Res Gene Not Reportable Streptococcus sp PCR Not detected Group A Strep (PCR) Not detected Strep agalactiae (PCR) Not detected Strep pneumoniae (PCR) Not detected P. aeruginosa (PCR) Not detected Allison/B-Vanco Res Genes Not Reportable KPC-Carbap Res Gene PCR Not Reportable 10/28/20 12:17 WBC RBC Hgb Hct MCV MCH MCHC RDW Plt Count Neut % (Auto) Lymph % (Auto) [place] % (Auto) Eos % (Auto) Baso % (Auto) Neut # (Auto) Lymph # (Auto) [place] # (Auto) Eos # (Auto) Baso # (Auto) Sodium 133 L Potassium 5.0 Chloride 108 H Carbon Dioxide 15 L BUN 63 H Creatinine 3.74 H Estimated GFR 11.5 L BUN/Creatinine Ratio 16.8 Glucose 120 H Calcium 9.0 Total Bilirubin AST ALT Alkaline Phosphatase Total Protein Albumin Globulin Albumin/Globulin Ratio A. baumannii (PCR) Jana albicans (PCR) C. glabrata (PCR) C. krusei (PCR) C. parapsilosis (PCR) C. tropicalis (PCR) Enterobacteriac sp PCR E. cloacae complex PCR Enterococcus sp PCR E. coli (PCR) H. influenzae (PCR) Klebsiella oxytoca PCR Klebsiella pneumoniae List. monocytogenes PCR N. meningitidis (PCR) Proteus species (PCR) Serratia marcescens PCR Staphylococcus sp PCR Staph aureus (PCR) mecA-Methicil Res Gene Streptococcus sp PCR Group A Strep (PCR) Strep agalactiae (PCR) Strep pneumoniae (PCR) P. aeruginosa (PCR) Allison/B-Vanco Res Genes KPC-Carbap Res Gene PCR [facility] Medical History Anxiety Calculus of kidney Depression GI bleed Gross hematuria History of recurrent UTI (urinary tract infection) HTN (hypertension) Hypothyroid Nephrolithiasis Noncompliant neurogenic bladder Obstructive uropathy MORGAN on CPAP Peptic ulcer disease Pneumothorax Postmenopausal atrophic vaginitis Ureteral obstruction, left Urinary incontinence, mixed Surgical History H/O gastric bypass H/O mastectomy History of back surgery History of hip replacement History of thyroidectomy Hx of bilateral cataract extraction (2012) Hx of cystoscopy (08/04/19) Nephrostomy status Family History Father Seizures Mother Heart disease Diabetes mellitus Brother No significant medical problems Sister Diabetes mellitus Grandmother Diabetes mellitus Social History household members: spouse Smoking Status: Never smoker alcohol intake: never eating out: rarely or never Type(s) of exercise: none Assessment & Plan Assessment & Plan narrative: Assessment: 1. All items from progress note earlier this day remain with the following alterations: A. The Aragon catheter may be removed. B. Each nephrostomy tube may be connected to a Y connector so that all urine is collected in 1 reservoir. Current urine outputs are approximately 75% right: 25% left. This is consistent with relative functions measured on recent Lasix renogram. C. Recommend bilateral nephrostomy tube exchange in IR roughly Q 6 weeks. Quality VTE Deep Vein Thrombosis/Pulmonary Embolism Present on Admission: No
[2020-10-28 15:35] VITALS: BP 109/60; PULSE 81; RESP 18; TEMP 36.4; O2SAT 98
--- NOTE | 2020-10-28 17:25 | P.PN_ITS ---
Subjective Subjective Date Patient Seen: 10/28/20 Time Patient Seen: 09:00 Interval history: CC: I'm tired Exam Vital Signs (past 8 hours): - 10/28/20 12:00 10/28/20 15:35 Temperature 97.3 F L 97.5 F L Pulse Rate 96 H 81 Respiratory Rate 18 18 Blood Pressure 98/62 109/60 Pulse Oximetry 96 98 Oxygen Delivery Method Room Air Oxygen Flow Rate 0 Narrative Exam Narrative: exhausted elder lying in bed Const General: cooperative, healthy appearing and comfortable [facility] Head: normal to inspection, normocephalic and atraumatic Eyes General: appearance normal, both eyes and all related structures Resp Effort & Inspection: normal respiratory effort and able to speak in complete sentences Auscultation: clear to auscultation bilaterally Cardio Other: normal rate S1/S2 GI Inspection: normal to inspection Palpation: soft Auscultation: normal bowel sounds Other: navarro in place putting out nothing Back/Spine/Pelvis Other: bilateral nephrostomy tubes in place draining yellow urine dressings clean Neuro General: patient alert, patient awake, patient oriented x3 and CN's II-XI intact bilaterally Extrem General: normal to inspection and full ROM Psych Appearance: grossly normal Mental Status: mental status grossly normal Other: becomes tearful discussing the potential need to move to assisted living Objective Labs Result Diagrams: 10/28/20 05:07 10/28/20 12:17 Labs: Laboratory Results - last 24 hr 10/23/20 10/28/20 10/28/20 12:47 05:07 05:07 WBC 12.4 H RBC 3.57 L Hgb 9.8 L Hct 30.8 L MCV 86.1 MCH 27.4 MCHC 31.8 RDW 15.6 H Plt Count 323 Neut % (Auto) 75.4 H Lymph % (Auto) 11.1 L Hickman % (Auto) 10.9 Eos % (Auto) 2.1 Baso % (Auto) 0.5 Neut # (Auto) 9400 H Lymph # (Auto) 1400 Hickman # (Auto) 1300 H Eos # (Auto) 300 Baso # (Auto) 100 Sodium 131 L Potassium 5.6 H Chloride 108 H Carbon Dioxide 15 L BUN 65 H Creatinine 4.03 H Estimated GFR 10.5 L BUN/Creatinine Ratio 16.1 Glucose 111 H Calcium 8.8 Total Bilirubin 0.1 L AST 31 ALT 32 Alkaline Phosphatase 109 Total Protein 6.4 Albumin 2.8 L Globulin 3.6 Albumin/Globulin Ratio 0.8 L A. baumannii (PCR) Not detected Jana albicans (PCR) Not detected C. glabrata (PCR) Not detected C. krusei (PCR) Not detected C. parapsilosis (PCR) Not detected C. tropicalis (PCR) Not detected Enterobacteriac sp PCR Not detected E. cloacae complex PCR Not detected Enterococcus sp PCR Not detected E. coli (PCR) Not detected H. influenzae (PCR) Not detected Klebsiella oxytoca PCR Not detected Klebsiella pneumoniae Not detected List. monocytogenes PCR Not detected N. meningitidis (PCR) Not detected Proteus species (PCR) Not detected Serratia marcescens PCR Not detected Staphylococcus sp PCR Detected H Staph aureus (PCR) Not detected mecA-Methicil Res Gene Not Reportable Streptococcus sp PCR Not detected Group A Strep (PCR) Not detected Strep agalactiae (PCR) Not detected Strep pneumoniae (PCR) Not detected P. aeruginosa (PCR) Not detected Allison/B-Vanco Res Genes Not Reportable KPC-Carbap Res Gene PCR Not Reportable 10/28/20 12:17 WBC RBC Hgb Hct MCV MCH MCHC RDW Plt Count Neut % (Auto) Lymph % (Auto) Hickman % (Auto) Eos % (Auto) Baso % (Auto) Neut # (Auto) Lymph # (Auto) Hickman # (Auto) Eos # (Auto) Baso # (Auto) Sodium 133 L Potassium 5.0 Chloride 108 H Carbon Dioxide 15 L BUN 63 H Creatinine 3.74 H Estimated GFR 11.5 L BUN/Creatinine Ratio 16.8 Glucose 120 H Calcium 9.0 Total Bilirubin AST ALT Alkaline Phosphatase Total Protein Albumin Globulin Albumin/Globulin Ratio A. baumannii (PCR) Jana albicans (PCR) C. glabrata (PCR) C. krusei (PCR) C. parapsilosis (PCR) C. tropicalis (PCR) Enterobacteriac sp PCR E. cloacae complex PCR Enterococcus sp PCR E. coli (PCR) H. influenzae (PCR) Klebsiella oxytoca PCR Klebsiella pneumoniae List. monocytogenes PCR N. meningitidis (PCR) Proteus species (PCR) Serratia marcescens PCR Staphylococcus sp PCR Staph aureus (PCR) mecA-Methicil Res Gene Streptococcus sp PCR Group A Strep (PCR) Strep agalactiae (PCR) Strep pneumoniae (PCR) P. aeruginosa (PCR) Allison/B-Vanco Res Genes KPC-Carbap Res Gene PCR PFSH Medical History Anxiety Calculus of kidney Depression GI bleed Gross hematuria History of recurrent UTI (urinary tract infection) HTN (hypertension) Hypothyroid Nephrolithiasis Noncompliant neurogenic bladder Obstructive uropathy MORGAN on CPAP Peptic ulcer disease Pneumothorax Postmenopausal atrophic vaginitis Ureteral obstruction, left Urinary incontinence, mixed Surgical History H/O gastric bypass H/O mastectomy History of back surgery History of hip replacement History of thyroidectomy Hx of bilateral cataract extraction (2012) Hx of cystoscopy (08/04/19) Nephrostomy status Family History Father Seizures Mother Heart disease Diabetes mellitus Brother No significant medical problems Sister Diabetes mellitus Grandmother Diabetes mellitus Social History household members: spouse Smoking Status: Never smoker alcohol intake: never eating out: rarely or never Type(s) of exercise: none Assessment & Plan Assessment & Plan narrative: #Severe bilateral hydronephrosis with ureteral obstruction #s/p percutaneous bilateral nephrostomy placement Per renal scan in setting of poor UOP. Precise etiology unclear but urology does not feel that it is repairable. Now s/p nephrostomy with good UOP L>R, none from Navarro. Per Dr. Cho ok to dc Navarro. Extensive conversation today appreciate his input. Nephrostomies will require BID flushing and q6wk swapouts with IR. Agree with Y connector plan #Acute renal failure stage four on chronic, new. Good UOP since returning. Cr dropping. Continue hydration. #Complicated urinary tract infection, acute on chronic, risk for sepsis Hopefully will improve now urine flow is resumed and Navarro is out. Continue rocephin monotherapy based on culture. ten days of tx. #hyperkalemia, acute much improved now s/p nephrostomies. continue to monitor and keyexalate as necessary. #Diabetes mellitus type 2 Diabetic diet. hold metformin for now. #Hematuria, chronic Likely due to infection/inflammation; KUB negative for nephrolithiasis. resolved now with nephrostomies. 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 q.day however continue to hold due to hypotension might be able to resume tomorrow Reasonable rate today. Continue aspirin. Telemetry. #Hypertension, chronic Hold home metoprolol due to hypotension. Rehydrating and will trend vital signs and labs. Will continue to hold while BP <110/70. #Hyperlipidemia, chronic Continue home atorvastatin 40 mg PO qhs. #Hypothyroidism, chronic Continue home levothyroxine 100 mcg p.o. q.a.m. Will update TSH. #MORGAN, chronic Continue home CPAP. #Morbid obesity, chronic Patient is at risk for delayed and poor healing secondary to weight. #Chronic pain syndrome Continue home tramadol and gabapentin. #Atrophic vaginitis Continue home ospemifene. #Depression/anxiety Continue home citalopram. #R wrist pain and swelling mild, likely 2/2 malpositioning during procedure at [facility], monitor Code: DNR / DNI DVT prophylaxis: SCDs, further anticoagulation contraindicated secondary to history of epistaxis and history of GI bleed, encourage ambulation COVID: Negative Disposition: likely home with HH in a couple days appreciate OT recs continue to ambulate Quality VTE Deep Vein Thrombosis/Pulmonary Embolism Present on Admission: No
[2020-10-28] MEDS: OSPEMIFENE 60 MG 60 EACH PO (18:39)
[2020-10-28 19:40] VITALS: BP 116/66; PULSE 88; RESP 17; TEMP 36.7; O2SAT 98
[2020-10-28 23:10] VITALS: BP 119/67; PULSE 89; RESP 18; TEMP 36.7; O2SAT 97
[2020-10-29] VITALS (7 sets, daily range): BP systolic 108–124; BP diastolic 62–75; PULSE 70–92; RESP 18–22; TEMP 36.3–36.7; O2SAT 95–971
[2020-10-29] MEDS: ZOLPIDEM 5 MG TABLET PO ×2 (00:57→20:49)
[2020-10-29 05:40] LABS: Add Manual Diff / Slide Review NO; Basophils Absolute Auto 100 /uL (0-100); Basophils Percent Auto 0.8 % (0-2); Eosinophils Absolute Auto 400 /uL (0-450); Eosinophils Percent Auto 3.7 % (2-4); Hematocrit 30.5 % (36-46); Hemoglobin 9.8 g/dL (12.0-16.0); Lymphocytes Absolute Auto 1300 /uL (1100-4500); Mean Corpuscular Hemoglobin 27.5 PG (26-34); Monocytes Absolute Auto 1000 /uL (0-900); Neutrophils Absolute Auto 8300 /uL (1500-7000); Neutrophils Percent Auto 74.5 % (50-75); Platelet Count 325 X10^3/uL (150-400); Red Blood Cell Count 3.55 X10^6/uL (4.0-5.2); Red Cell Distribution Width 15.4 % (11.6-14.8); White Blood Cell Count 11.2 X10^3/uL (4.5-11.0)
[2020-10-29 06:05] LABS: Alanine Aminotransferase 28 IU/L (<35); Albumin 2.8 g/dL (3.5-5.0); Albumin Globulin Ratio 0.8 (1.0-2.8); Alkaline Phosphatase 106 U/L (38-126); Aspartate Aminotransferase 24 IU/L (14-36); BUN Creatinine Ratio 18.5 (6-22); Bilirubin Total 0.1 mg/dL (0.2-1.3); Blood Urea Nitrogen 60 mg/dL (7-17); Calcium 8.8 mg/dL (8.4-10.2); Carbon Dioxide 17 mmol/L (22-32); Chloride 110 mmol/L (98-107); Estimated Glomerular Filt Rate 13.5 mL/min (>60); Globulin 3.6 g/dL (1.7-4.1); Glucose 107 mg/dL (80-110); HEMOLYSIS < 15 (0-50); Sodium 134 mmol/L (137-145); Total Protein 6.4 g/dL (6.3-8.2)
[2020-10-29 06:25] LABS: Potassium 5.7 mmol/L (3.4-5.1)
[2020-10-29] MEDS: LEVOTHYROXINE 100 MCG TABLET PO (06:32)
[2020-10-29] MEDS: ASPIRIN 81 MG CHEW TAB PO (08:15)
[2020-10-29] MEDS: LACTOBACILLUS ACIDOPHILUS TABLET 1 EACH PO ×2 (08:15→16:51)
[2020-10-29] MEDS: ACETAMINOPHEN 325 MG TABLET 650 MG PO ×2 (08:16→16:01)
[2020-10-29] MEDS: CITALOPRAM 10 MG TABLET PO (08:16)
[2020-10-29] MEDS: GABAPENTIN 300 MG CAPSULE PO ×3 (08:16→20:10)
[2020-10-29] MEDS: SODIUM CHLORIDE 0.45% 1,000 ML 84 ML IV ×2 (08:19→20:49)
--- NOTE | 2020-10-29 08:57 | P.PN_ITS ---
Subjective Subjective Date Patient Seen: 10/29/20 Time Patient Seen: 08:57 Interval history: CC: I feel better today Pt passed uneventful night draining via nephrostomies. Margo is out to her great relief. Still dribbling a bit here and there but much more comfortable. Exam Vital Signs (past 8 hours): - 10/29/20 03:00 10/29/20 08:00 Temperature 98.1 F 98.0 F Pulse Rate 89 90 Respiratory Rate 22 20 Blood Pressure 113/62 118/68 Pulse Oximetry 97 98 Oxygen Delivery Method Room Air Oxygen Flow Rate 0 Narrative Exam Narrative: more cheerful today sitting in bed eating breakfast Const General: cooperative and healthy appearing Nutritional Appearance: well nourished HENMT Head: normal to inspection Eyes General: appearance normal, both eyes and all related structures Neck Neck: normal visual inspection and full ROM Lymphatic: No lymphadenopathy Resp Effort & Inspection: normal respiratory effort and able to speak in complete sentences Auscultation: clear to auscultation bilaterally Cardio Rate: regular rate Heart Sounds: S1 normal and S2 normal GI Palpation: soft and No tender Auscultation: normal bowel sounds Back/Spine/Pelvis Other: bilateral nephrostomies draining straw from R, clear yellow from L, under clean dressings Psych Appearance: grossly normal and well kempt Mental Status: mental status grossly normal Speech and Movement: speech and movement normal Mood: congruent mood Affect: normal affect Objective Labs Result Diagrams: 10/29/20 05:08 10/29/20 09:06 Labs: Laboratory Results - last 24 hr 10/28/20 10/29/20 10/29/20 12:17 05:08 05:08 WBC 11.2 H RBC 3.55 L Hgb 9.8 L Hct 30.5 L MCV 86.0 MCH 27.5 MCHC 32.0 RDW 15.4 H Plt Count 325 Neut % (Auto) 74.5 Lymph % (Auto) 12.0 L [place] % (Auto) 9.0 Eos % (Auto) 3.7 Baso % (Auto) 0.8 Neut # (Auto) 8300 H Lymph # (Auto) 1300 [place] # (Auto) 1000 H Eos # (Auto) 400 Baso # (Auto) 100 Sodium 133 L 134 L Potassium 5.0 5.7 H Chloride 108 H 110 H Carbon Dioxide 15 L 17 L BUN 63 H 60 H Creatinine 3.74 H 3.25 H Estimated GFR 11.5 L 13.5 L BUN/Creatinine Ratio 16.8 18.5 Glucose 120 H 107 Calcium 9.0 8.8 Total Bilirubin 0.1 L AST 24 ALT 28 Alkaline Phosphatase 106 Total Protein 6.4 Albumin 2.8 L Globulin 3.6 Albumin/Globulin Ratio 0.8 L PFSH Medical History Anxiety Calculus of kidney Depression GI bleed Gross hematuria History of recurrent UTI (urinary tract infection) HTN (hypertension) Hypothyroid Nephrolithiasis Noncompliant neurogenic bladder Obstructive uropathy MORGAN on CPAP Peptic ulcer disease Pneumothorax Postmenopausal atrophic vaginitis Ureteral obstruction, left Urinary incontinence, mixed Surgical History H/O gastric bypass H/O mastectomy History of back surgery History of hip replacement History of thyroidectomy Hx of bilateral cataract extraction (2012) Hx of cystoscopy (08/04/19) Nephrostomy status Family History Father Seizures Mother Heart disease Diabetes mellitus Brother No significant medical problems Sister Diabetes mellitus Grandmother Diabetes mellitus Social History household members: spouse Smoking Status: Never smoker alcohol intake: never eating out: rarely or never Type(s) of exercise: none Assessment & Plan Assessment & Plan narrative: #Severe bilateral hydronephrosis with tortuous ureteral obstruction #s/p percutaneous bilateral nephrostomy placement Now s/p nephrostomy with good UOP L>R, none from Aragon. Aragon Dc'd yesterday per Dr. Cho, pt now primarily outputting via nephrostomies Nephrostomies will require BID flushing and q6wk swapouts with IR. Agree with Y connector plan prior to DC. see if family can be trained on flushes functional status generally good encourage ambulation #Acute renal failure stage five on chronic stage four, new. Cr improving with IVF and assiduous PO hydration now obstruction is relieved. She still requires at least one more day of IVF see if we can get GFR back up over 15 #hyperkalemia, acute Improved yesterday then up to 5.6 today in morning BMP. However Cr continues to drop so I am suspicious of hemolysis and ordered stat redraw. If still elevated >5.5 give kayexalate one time dose #Diabetes mellitus type 2 Diabetic diet. hold home glipizide. Last A1c 6.2 #Complicated urinary tract infection, acute on chronic, risk for sepsis #leukocytosis present on admission clinical picture much improved transitioning to PO today #Hematuria, chronic Likely due to infection/inflammation; KUB negative for nephrolithiasis. resolved now with nephrostomies no blood output. 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 Continue aspirin. Telemetry. #Hypertension, chronic Held home metoprolol initially due to hypotension. BP improved to 118/68 HR 90 ok to resume #Hyperlipidemia, chronic Continue home atorvastatin 40 mg PO qhs. #Hypothyroidism, chronic Continue home levothyroxine 100 mcg p.o. q.a.m. #MORGAN, chronic Continue home CPAP. #Morbid obesity, chronic Patient is at risk for delayed and poor healing secondary to weight. Encourage mobilization and ambulation. #Chronic pain syndrome Continue home tramadol and gabapentin. #Atrophic vaginitis Continue home ospemifene. #Depression/anxiety Continue home citalopram. #R wrist pain and swelling mild, likely 2/2 malpositioning during procedure at [facility], monitor Code: DNR / DNI DVT prophylaxis: SCDs, further anticoagulation contraindicated secondary to history of epistaxis and history of GI bleed, encourage ambulation COVID: Negative Disposition: SNF vs home with HH appreciate OT recs continue to ambulate Quality VTE Deep Vein Thrombosis/Pulmonary Embolism Present on Admission: No
[2020-10-29 09:22] LABS: HEMOLYSIS < 15 (0-50); Potassium 5.2 mmol/L (3.4-5.1)
--- NOTE | 2020-10-29 09:35 | CM.DPC ---
Addendum entered by Georgina Odell LPN 10/29/20 13:46: [facility] is updated via phone conversation re exected d/c this weekend. DIRECTOR RISK is faxing updated clinicals. Addendum entered by Georgina Odell LPN 10/29/20 09:45: Melissa/Monica is updated. Original Note: DCP: continued: spoke yesterday afternoon with OT and then with Dr. Joshi to update. He initially was recommending snf stay but has changed this now based on the way pt managed with therapy and the patients strong desire to go directly home. He also had long conversation with pt with strong encouragement that she and her make the move to be near her daughter and into an [facility] situation. Pt did very well with her therapy sessions and the current recommendation is for home with resumption of [facility]. Checked in with pt who confirms that she is feeling more confident in ability to manage her nephrostomy tubing at home. Her is talking with the caregiver and this person will be able to assist. Aragon catheter is out. Tubes run from pt's back area into bags. Pt also says her daughter/who works as an OT for the [employer], is coming to visit soon and she will provide some assist for the few days she is there but pt says more importantly, we will talk more about the future plans. Pt is looking forward to this visit which will include her great grandson who is 2 and a new baby. P: home with resumption of HH when stable for same, likely this weekend. Dr. Joshi's note is in draft but he has told pt, not ready to leave today.
--- NOTE | 2020-10-29 10:29 | PC.NURSE ---
Addendum entered by Elizabeth Tma R.N. 10/29/20 14:56: Bilat nephrostomy tubes flushed with 10cc NS. Addendum entered by Elizabeth Tam R.N. 10/29/20 14:25: Patient up to chair for most of morning, back to bed with SBA and FWW. Patient tolerated. Original Note: Patient resting in bed. Denies abdominal pain, endorses pain in R wrist, Tylenol PRN adminsitered. IV patent, WNL, infusing 1/2 NS @ 84 per MD order. Patient is tolerating PO intake, denies N/V. ABD is soft, non-tender. Bilat nephrostomy tubes intact, dsg x 2 CDI, tubes are patent, draining clear yellow urine. Patient VSS, tele on, HR regulary irregular at this time. Lungs CTA, patient on RA, 96%. Patient denies chest pain or SOB. Patient refusing SCD's at this time. Call light in reach, bed alarm off at this time. is bedside.
--- NOTE | 2020-10-29 10:44 | OT.IPNOTE ---
Pt states would like her friend/caregiver to come to the hospital to learn how to take care of the nephrostomy tubes. OT able to let nursing know of pt's request. Therefore, pt states has no other OT needs and discharge pt from OT services at this time.
--- NOTE | 2020-10-29 11:15 | CM.DPNOTE ---
Faxed updated therapy, cm and PN to [facility] and received fax conf. Ann Marie Botlelo CM Asst.
--- NOTE | 2020-10-29 11:42 | PT.IPTN ---
Current Diagnoses Urinary tract infection, site not specified (10/23/20) Physical Therapy Treatment Note M2 PT-IP Current Condition Start: 10/24/20 08:44 Freq: NEEDED Status: Active Protocol: Document 10/25/20 17:13 MA (Rec: 10/25/20 17:26 MA [id number]) Physical Therapy Current Condition Current Condition Evaluation Date 10/24/20 Treatment Diagnosis UTI, CAYETANO; impaired mobility and gait Onset Date 10/23/20 Precautions Other Precautions indwelling navarro catheter; falls M3 PT-IP Subjective Start: 10/24/20 08:44 Freq: NEEDED Status: Active Protocol: Document 10/29/20 11:18 DCW (Rec: 10/29/20 11:51 DCW [id number]) Subjective Physical Therapy Visit Type Type Treatment Note Visit Start Time 11:18 Visit Stop Time 11:42 Total Visit Minutes 24 Number of INSURANCE HEALTHCARE CONSULTANT Visits 0 Physical Therapy Visit Comments Patient Comments Pt continues to report right wrist pain, I think it's gout or something. M4 PT-IP Mobility and Gait Start: 10/24/20 08:44 Freq: NEEDED Status: Active Protocol: Document 10/29/20 11:18 DCW (Rec: 10/29/20 11:51 DCW [id number]) PT-Bed Mobility Assessment Rolling Type of Rolling Roll to Left Level of Assist Standby Assistance Supine to Sit Supine to Sit Standby Assistance Scooting Scooting to Edge of Bed Standby Assistance PT-Transfer Assessment Sit to and From Stand Sit to and from Stand Standby Assistance,Use of Upper Extremities Equipment Transfer Assistive Device Gait Belt,4 Wheeled Walker Orthotic/Prosthetic Devices or Brace: No Transfers Transfer Destination Chair Transfer Ability Level of Assist Standby Assistance Gait Assessment Gait Gait Assistance Required: Standby Assistance Distance (Feet) 200 Assistive Devices Assistive Device Gait Belt,4 Wheeled Walker Orthotic/Prosthetic Devices or Brace: No Gait Deviations General Gait Pattern Antalgic,Flexed Trunk,Lateral Trunk Lean,Wide Based Gait Factors Limiting Gait Function Factors Limiting Gait Function Decreased Activity Tolerance, Decreased Sensation,Poor Balance Comments Gait Comments Pt ambulated in turk 200' SBA using 4WW M5 PT-IP Objective Assessments Start: 10/24/20 08:44 Freq: NEEDED Status: Active Protocol: Document 10/24/20 10:49 AW (Rec: 10/24/20 11:38 AW [id number]) Orientation Orientation/Cognition Level of Alertness Alert Orientation Name,Day of Week,Place, Situation Language Function Ability No Deficits Noted Safety Awareness Understands Safety Issues Memory Description No Deficits Noted Gross Range of Motion Lower Extremity ROM Assessment Within Functional Limits Strength Lower Extremity Strength Assessment Bilaterally Impaired Hip 4/5 Knee 4+/5 Ankle 4/5 Sensation Assessment Sensation Gross Sensation Right LE Impaired,Left LE Impaired Light Touch Impaired Proprioception (Position) Impaired Sensation Description Numbness Comments Sensation Comments B feet numb on plantar aspects with left more affected than right. Pt states this is a result of a poor surgical outcome following lumbar surgery years ago. Muscle Tone Muscle Tone WNL Yes M6 PT-IP Treatment Start: 10/24/20 08:44 Freq: NEEDED Status: Active Protocol: Document 10/26/20 11:15 [facility] (Rec: 10/26/20 13:09 [facility] [id number]) Physical Therapy Treatment Other Treatments Other Treatment Performed seated: APs, hip ER, Hip abd, knee ext/flex, may M7 PT-IP Assessment and Plan Start: 10/24/20 08:44 Freq: NEEDED Status: Active Protocol: Document 10/29/20 11:18 DCW (Rec: 10/29/20 11:51 DCW [id number]) PT Summary Assessment and Plan Summary Impairments Strength,Balance,Sensation,Bed Mobility,Transfers,Gait, Activity Tolerance Assessment Summary Pt supine in bed upon PT arrival, willing to get up and work with therapy today. Able to get to EOB and stand using 4WW, SBA. Pt walked 200' in turk SBA /c 4WW, no complaints of pain or fatigue. Pt returned to room and requested sitting up in recliner. Pt left with call ramirez and phone within reach. Goals Bed Mobility Goal Independent Transfer Goal Independent,Four Wheeled Walker Gait Goal Independent,Four Wheel Walker Gait Distance 200 Other Goals - up/down 5 steps with narrow B rails SBA Days to Meet Goals 5 Frequency of Treatment Frequency Of Treatment Once a Day Treatment Plan Physical Therapy Treatment Plan Bed Mobility Training,Transfer Training,Gait Training, Therapeutic Exercise,Balance Retraining,Discharge Planning, Neuromuscular Re-ed Other Recommendations and Next Treatment gait training with 4WW; stairs Focus Precautions Other Precautions falls Recommendations To Nursing Amount of Assist Needed Standby Assistance Discharge Recommendations PT Discharge Recommendations Home with Assistance,Home Health Transportation Needs at Discharge Private Vehicle
[2020-10-29] MEDS: cephALEXin 250 MG CAPSULE 500 MG PO ×2 (12:26→20:10)
[2020-10-29] MEDS: METOPROLOL ER 50 MG TABLET PO (12:26)
[2020-10-29] MEDS: OSPEMIFENE 60 MG 60 EACH PO (16:51)
[2020-10-29] MEDS: SODIUM CHLORIDE 0.9% FLUSH 10 ML IV (20:11)
[2020-10-30] VITALS (8 sets, daily range): BP systolic 111–131; BP diastolic 54–73; PULSE 62–94; RESP 16–18; TEMP 35.8–36.6; O2SAT 96–98
--- NOTE | 2020-10-30 01:54 | PC.NURSE ---
Patient's nephrostomy tubes were flushed at 0135. This RN was told at shift report that the tubes were flushed late during day shift and had not been done since and they needed to be flushed during [employer].
[2020-10-30 05:24] LABS: Add Manual Diff / Slide Review NO; Basophils Absolute Auto 100 /uL (0-100); Basophils Percent Auto 1.3 % (0-2); Eosinophils Absolute Auto 500 /uL (0-450); Eosinophils Percent Auto 4.8 % (2-4); Hematocrit 30.7 % (36-46); Hemoglobin 9.9 g/dL (12.0-16.0); Lymphocytes Absolute Auto 1500 /uL (1100-4500); Lymphocytes Percent Auto 15.7 % (25-40); Mean Corpuscular HGB Conc 32.3 % (30-36); Mean Corpuscular Hemoglobin 27.8 PG (26-34); Mean Corpuscular Volume 86.1 fL (80-100); Monocytes Absolute Auto 1100 /uL (0-900); Monocytes Percent Auto 11.7 % (3-14); Neutrophils Absolute Auto 6400 /uL (1500-7000); Neutrophils Percent Auto 66.5 % (50-75); Platelet Count 347 X10^3/uL (150-400); Red Blood Cell Count 3.57 X10^6/uL (4.0-5.2); White Blood Cell Count 9.7 X10^3/uL (4.5-11.0)
[2020-10-30 05:34] LABS: Alanine Aminotransferase 29 IU/L (<35); Albumin 2.9 g/dL (3.5-5.0); Albumin Globulin Ratio 0.8 (1.0-2.8); Alkaline Phosphatase 115 U/L (38-126); Aspartate Aminotransferase 29 IU/L (14-36); Bilirubin Total 0.2 mg/dL (0.2-1.3); Blood Urea Nitrogen 55 mg/dL (7-17); Carbon Dioxide 20 mmol/L (22-32); Chloride 112 mmol/L (98-107); Estimated Glomerular Filt Rate 15.4 mL/min (>60); Globulin 3.8 g/dL (1.7-4.1); Glucose 97 mg/dL (80-110); HEMOLYSIS < 15 (0-50); Sodium 138 mmol/L (137-145); Total Protein 6.7 g/dL (6.3-8.2)
[2020-10-30 05:36] LABS: Potassium 6.2 mmol/L (3.4-5.1)
[2020-10-30] MEDS: LEVOTHYROXINE 100 MCG TABLET PO (06:07)
--- NOTE | 2020-10-30 07:34 | PC.NURSE ---
Dr. Warner notified of this mornings K+ level, Kayexalate, Tele and BMP for 1000 ordered. Confirmed order. Patient is resting in chair this AM, denies nausea, cramping, SOB, or chest pain. Call light in reach.
[2020-10-30] MEDS: SODIUM POLYSTYRENE SULFON/SORB 15 GM/60 ML CUP PO ×3 (07:39→22:29)
[2020-10-30] MEDS: SODIUM CHLORIDE 0.45% 1,000 ML 84 ML IV ×2 (07:40→20:19)
[2020-10-30] MEDS: LACTOBACILLUS ACIDOPHILUS TABLET 1 EACH PO ×2 (07:44→17:06)
[2020-10-30] MEDS: cephALEXin 250 MG CAPSULE 500 MG PO ×2 (09:01→20:24)
[2020-10-30] MEDS: METOPROLOL ER 50 MG TABLET PO (09:01)
[2020-10-30] MEDS: GABAPENTIN 300 MG CAPSULE PO ×3 (09:01→20:25)
[2020-10-30] MEDS: CITALOPRAM 10 MG TABLET PO (09:02)
[2020-10-30] MEDS: ASPIRIN EC 81 MG TABLET PO (09:02)
[2020-10-30 10:42] LABS: BUN Creatinine Ratio 18.2 (6-22); Blood Urea Nitrogen 52 mg/dL (7-17); Calcium 9.2 mg/dL (8.4-10.2); Carbon Dioxide 21 mmol/L (22-32); Chloride 111 mmol/L (98-107); Estimated Glomerular Filt Rate 15.7 mL/min (>60); Glucose 143 mg/dL (80-110); HEMOLYSIS < 15 (0-50); Sodium 138 mmol/L (137-145)
[2020-10-30 10:49] LABS: Potassium 5.7 mmol/L (3.4-5.1)
--- NOTE | 2020-10-30 11:39 | DI.RAD.S_ITS ---
PROCEDURE: XR WRIST RT MIN 3V INDICATIONS: right wrist pain, decreased mobility TECHNIQUE: 3 views of the wrist were acquired. COMPARISON: None. FINDINGS: Bones: No fractures or dislocations. Advanced joint space narrowing of the triscaphe joint and 1st carpometacarpal joint. Mild joint space narrowing and marginal osteophyte formation of the 1st metacarpophalangeal joint. No suspicious bony lesions. Soft tissues: Calcification in the triangular fibrocartilage complex, likely sequela of degeneration and senescent. IMPRESSION: 1. 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 2. Degenerative calcification in the triangular fibrocartilage complex. Dictated by: Adonay Schwartz M.D. on 10/30/2020 at 11:38 Approved by: Adonay Schwartz M.D. on 10/30/2020 at 11:41
--- NOTE | 2020-10-30 11:41 | P.PN_ITS ---
Subjective Subjective Date Patient Seen: 10/30/20 Time Patient Seen: 10:00 Interval history: The pt reports that she is overall feeling well, although she is tired of being in the hospital. Her main complaint is her right wrist, which is still very painful. She has not been able to use it well. She denies any chest pain, SOB, nausea, abdominal pain. Exam Vital Signs (past 8 hours): - 10/30/20 05:09 10/30/20 07:27 10/30/20 09:01 Temperature 97.7 F 97.9 F Pulse Rate 75 67 67 Respiratory Rate 16 18 Blood Pressure 119/57 L 111/64 111/64 Pulse Oximetry 97 96 Oxygen Delivery Method Room Air Oxygen Flow Rate 0 Narrative Exam Narrative: Gen: NAD, sitting comfortably in chair, appears well CV: RRR, no murmurs Resp: clear to auscultation bilaterally Abd: soft, nondistended, nontender, normoactive bowel sounds Ext: no edema; right wrist tender to palpation, moderate swelling, significantly decreased flexion secondary to pain Objective Labs Result Diagrams: 10/30/20 04:45 10/30/20 10:25 Labs: Laboratory Results - last 24 hr 10/30/20 10/30/20 10/30/20 04:45 04:45 10:25 WBC 9.7 RBC 3.57 L Hgb 9.9 L Hct 30.7 L MCV 86.1 MCH 27.8 MCHC 32.3 RDW 16.0 H Plt Count 347 Neut % (Auto) 66.5 Lymph % (Auto) 15.7 L [place] % (Auto) 11.7 Eos % (Auto) 4.8 H Baso % (Auto) 1.3 Neut # (Auto) 6400 Lymph # (Auto) 1500 [place] # (Auto) 1100 H Eos # (Auto) 500 H Baso # (Auto) 100 Sodium 138 138 Potassium 6.2 H 5.7 H Chloride 112 H 111 H Carbon Dioxide 20 L 21 L BUN 55 H 52 H Creatinine 2.90 H 2.85 H Estimated GFR 15.4 L 15.7 L BUN/Creatinine Ratio 19.0 18.2 Glucose 97 143 H Calcium 9.0 9.2 Total Bilirubin 0.2 AST 29 ALT 29 Alkaline Phosphatase 115 Total Protein 6.7 Albumin 2.9 L Globulin 3.8 Albumin/Globulin Ratio 0.8 L PFSH Medical History Anxiety Calculus of kidney Depression GI bleed Gross hematuria History of recurrent UTI (urinary tract infection) HTN (hypertension) Hypothyroid Nephrolithiasis Noncompliant neurogenic bladder Obstructive uropathy MORGAN on CPAP Peptic ulcer disease Pneumothorax Postmenopausal atrophic vaginitis Ureteral obstruction, left Urinary incontinence, mixed Surgical History H/O gastric bypass H/O mastectomy History of back surgery History of hip replacement History of thyroidectomy Hx of bilateral cataract extraction (2012) Hx of cystoscopy (08/04/19) Nephrostomy status Family History Father Seizures Mother Heart disease Diabetes mellitus Brother No significant medical problems Sister Diabetes mellitus Grandmother Diabetes mellitus Social History household members: spouse Smoking Status: Never smoker alcohol intake: never eating out: rarely or never Type(s) of exercise: none Assessment & Plan Assessment & Plan narrative: #Severe bilateral hydronephrosis with tortuous ureteral obstruction POD #3 s/p percutaneous bilateral nephrostomy placement: good UOP L>R - BID Nephrostomy flushing, q6wk swapouts with IR - Agree with Y connector plan prior to DC, nursing to try and locate. Will see if family can be trained on flushes - Functional status generally good encourage ambulation #Acute renal failure stage five on chronic stage four, new: Creatinine continues to improve with IVF and PO hydration. - Will continue IVF for one additional day, GFR minimally > 15 #Hyperkalemia, acute: Elevated this morning to 6.2. Question why potassium not showing better improvement as creatinine normalizes. - Kayexalate given this morning, repeat level 5.7 - Plan to repeat Kayexalate after 6 hours, repeat BMP afterwards - Telemetry for now #Diabetes mellitus type 2: Last A1C 6.2 - Hold home Glipizide - ACHS checks - Sliding scale - Diabetic diet #Complicated urinary tract infection, acute on chronic, risk for sepsis: leukocytosis present on admission. Stable. - Continue PO Keflex #Hematuria, chronic Likely due to infection/inflammation; KUB negative for nephrolithiasis. resolved now with nephrostomies no blood output. 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 #Hypothyroidism, chronic Continue home levothyroxine 100 mcg p.o. q.a.m. #MORGAN, chronic Continue home CPAP. #Morbid obesity, chronic Patient is at risk for delayed and poor healing secondary to weight. Encourage mobilization and ambulation. #Chronic pain syndrome Continue home tramadol and gabapentin. #Atrophic vaginitis Continue home ospemifene. #Depression/anxiety Continue home citalopram. #R wrist pain and swelling: Most likely due to malpositioning during procedure at [facility]. Does have significant swelling. - Xray today - Ice daily Code: DNR / DNI DVT prophylaxis: SCDs, further anticoagulation contraindicated secondary to history of epistaxis and history of GI bleed, encourage ambulation COVID: Negative Disposition: Home with appreciate. Continue to ambulate. Possible d/c tomorrow if potassium levels normalize and stay in acceptable range. Quality VTE Deep Vein Thrombosis/Pulmonary Embolism Present on Admission: No
--- NOTE | 2020-10-30 15:20 | CM.DPC ---
DCP Cont: Met with patient, Melquiades, and daughter, Camila, who lives [place] of [place]. They have been instructed on care of nephrostomy tube. They both had questions, such as assisted living facilities in the area, or outside, should she need more care, and a place that her can move into as well. They indicated that they also both have care home care insurance. Brought in a Senior Resources Book. Went over some facilities, such as [facility], [facility], and mentioned [facility] and [facility]. They are interested in facilites that can go from lower to higher levels. Encouraged daughter to tour facilities, if able. At this time, the plan is home with [facility]. Let patient know that this corporate meeting planner will ensure that [place] is contacted upon discharge to resume care. P: DCP to continue to follow. Gave patient and family this case resource manager's number to contact tomorrow if further questions. Patient was not yet ready for discharge today secondary to her potassium levels. Didi Rowland RN/Back Panel Padder
--- NOTE | 2020-10-30 15:30 | PT-IP ANOTE ---
Pt agreed to get up to ambulate with encouragement from daughter but then stated she was given meds and that she needed a skilled nursing facilities professional to assist her to the bathroom. Will check back with pt later today or tomorrow time permitting.
--- NOTE | 2020-10-30 16:13 | PT.IPTN ---
Current Diagnoses Urinary tract infection, site not specified (10/23/20) Physical Therapy Treatment Note M2 PT-IP Current Condition Start: 10/24/20 08:44 Freq: NEEDED Status: Active Protocol: Document 10/25/20 17:13 MA (Rec: 10/25/20 17:26 MA [id number]) Physical Therapy Current Condition Current Condition Evaluation Date 10/24/20 Treatment Diagnosis UTI, CAYETANO; impaired mobility and gait Onset Date 10/23/20 Precautions Other Precautions indwelling navarro catheter; falls M3 PT-IP Subjective Start: 10/24/20 08:44 Freq: NEEDED Status: Active Protocol: Document 10/30/20 16:01 CLB (Rec: 10/30/20 16:46 CLB [id number]) Subjective Physical Therapy Visit Type Type Treatment Note Visit Start Time 16:01 Visit Stop Time 16:13 Total Visit Minutes 12 Number of COMMUNICATIONS FIELD TECHNICIAN Visits 1 Physical Therapy Visit Comments Patient Comments Pt up with KNITTED CLOTH EXAMINER in bathroom agreeable to ambulate. M4 PT-IP Mobility and Gait Start: 10/24/20 08:44 Freq: NEEDED Status: Active Protocol: Document 10/30/20 16:01 CLB (Rec: 10/30/20 16:46 CLB [id number]) PT-Bed Mobility Assessment Sit to Supine Sit to Supine Standby Assistance Scooting Scooting Up and Down in Bed Standby Assistance PT-Transfer Assessment Sit to and From Stand Sit to and from Stand Standby Assistance,Use of Upper Extremities Equipment Transfer Assistive Device 4 Wheeled Walker Orthotic/Prosthetic Devices or Brace: No Transfers Transfer Destination Chair Transfer Ability Level of Assist Standby Assistance Comments Mobility Comments Pt up in BR with KNITTED CLOTH EXAMINER. Pt ambulated in turk ~200ft w/FWW /SBA and assist with IV lines . Pt returned to room returning to bed to supine SBA . Gait Assessment Gait Gait Assistance Required: Standby Assistance Distance (Feet) 200 Assistive Devices Assistive Device Gait Belt,4 Wheeled Walker Orthotic/Prosthetic Devices or Brace: No Gait Deviations General Gait Pattern Antalgic,Flexed Trunk,Lateral Trunk Lean,Wide Based Gait Factors Limiting Gait Function Factors Limiting Gait Function Decreased Activity Tolerance, Decreased Sensation,Poor Balance Comments Gait Comments Pt ambulated in turk 200' SBA using 4WW M5 PT-IP Objective Assessments Start: 10/24/20 08:44 Freq: NEEDED Status: Active Protocol: Document 10/24/20 10:49 AW (Rec: 10/24/20 11:38 AW [id number]) Orientation Orientation/Cognition Level of Alertness Alert Orientation Name,Day of Week,Place, Situation Language Function Ability No Deficits Noted Safety Awareness Understands Safety Issues Memory Description No Deficits Noted Gross Range of Motion Lower Extremity ROM Assessment Within Functional Limits Strength Lower Extremity Strength Assessment Bilaterally Impaired Hip 4/5 Knee 4+/5 Ankle 4/5 Sensation Assessment Sensation Gross Sensation Right LE Impaired,Left LE Impaired Light Touch Impaired Proprioception (Position) Impaired Sensation Description Numbness Comments Sensation Comments B feet numb on plantar aspects with left more affected than right. Pt states this is a result of a poor surgical outcome following lumbar surgery years ago. Muscle Tone Muscle Tone WNL Yes M6 PT-IP Treatment Start: 10/24/20 08:44 Freq: NEEDED Status: Active Protocol: Document 10/26/20 11:15 LRH (Rec: 10/26/20 13:09 LRH [id number]) Physical Therapy Treatment Other Treatments Other Treatment Performed seated: APs, hip ER, Hip abd, knee ext/flex, march B M7 PT-IP Assessment and Plan Start: 10/24/20 08:44 Freq: NEEDED Status: Active Protocol: Document 10/30/20 16:01 CLB (Rec: 10/30/20 16:46 CLB [id number]) PT Summary Assessment and Plan Summary Impairments Strength,Balance,Sensation,Bed Mobility,Transfers,Gait, Activity Tolerance Assessment Summary Pt is SBA for all mobility and is able to ambulate w/4WW ~ 200ft. Goals Bed Mobility Goal Independent Transfer Goal Independent,Four Wheeled Walker Gait Goal Independent,Four Wheel Walker Gait Distance 200 Other Goals - up/down 5 steps with narrow B rails SBA Days to Meet Goals 5 Frequency of Treatment Frequency Of Treatment Once a Day Treatment Plan Physical Therapy Treatment Plan Bed Mobility Training,Transfer Training,Gait Training, Therapeutic Exercise,Balance Retraining,Discharge Planning, Neuromuscular Re-ed Other Recommendations and Next Treatment gait training with 4WW; stairs Focus Precautions Other Precautions falls Recommendations To Nursing Amount of Assist Needed Standby Assistance Discharge Recommendations PT Discharge Recommendations Home with Assistance,Home Health Transportation Needs at Discharge Private Vehicle
[2020-10-30 16:32] LABS: BUN Creatinine Ratio 17.5 (6-22); Blood Urea Nitrogen 51 mg/dL (7-17); Calcium 9.2 mg/dL (8.4-10.2); Carbon Dioxide 19 mmol/L (22-32); Chloride 111 mmol/L (98-107); Estimated Glomerular Filt Rate 15.3 mL/min (>60); Glucose 93 mg/dL (80-110); HEMOLYSIS < 15 (0-50); Sodium 141 mmol/L (137-145)
[2020-10-30 16:33] LABS: Potassium 5.4 mmol/L (3.4-5.1)
[2020-10-30] MEDS: ACETAMINOPHEN 325 MG TABLET 650 MG PO ×2 (17:06→22:56)
[2020-10-30] MEDS: OSPEMIFENE 60 MG 60 EACH PO (17:11)
[2020-10-30 21:50] LABS: BUN Creatinine Ratio 20.4 (6-22); Blood Urea Nitrogen 54 mg/dL (7-17); Calcium 8.8 mg/dL (8.4-10.2); Carbon Dioxide 19 mmol/L (22-32); Chloride 111 mmol/L (98-107); Estimated Glomerular Filt Rate 17.1 mL/min (>60); Glucose 110 mg/dL (80-110); HEMOLYSIS < 15 (0-50); Potassium 5.8 mmol/L (3.4-5.1); Sodium 137 mmol/L (137-145)
[2020-10-30] MEDS: ZOLPIDEM 5 MG TABLET PO (23:46)
[2020-10-31 04:15] VITALS: BP 126/68; PULSE 71; RESP 16; TEMP 35.8; O2SAT 95
[2020-10-31 05:28] LABS: Alanine Aminotransferase 28 IU/L (<35); Albumin Globulin Ratio 0.8 (1.0-2.8); Alkaline Phosphatase 108 U/L (38-126); Aspartate Aminotransferase 28 IU/L (14-36); BUN Creatinine Ratio 19.1 (6-22); Bilirubin Total 0.2 mg/dL (0.2-1.3); Blood Urea Nitrogen 49 mg/dL (7-17); Calcium 8.9 mg/dL (8.4-10.2); Carbon Dioxide 21 mmol/L (22-32); Chloride 112 mmol/L (98-107); Estimated Glomerular Filt Rate 17.7 mL/min (>60); Globulin 3.7 g/dL (1.7-4.1); Glucose 98 mg/dL (80-110); HEMOLYSIS < 15 (0-50); Sodium 138 mmol/L (137-145); Total Protein 6.7 g/dL (6.3-8.2)
[2020-10-31 05:29] LABS: Add Manual Diff / Slide Review NO; Basophils Absolute Auto 100 /uL (0-100); Basophils Percent Auto 1.4 % (0-2); Eosinophils Absolute Auto 400 /uL (0-450); Eosinophils Percent Auto 4.5 % (2-4); Hematocrit 31.5 % (36-46); Hemoglobin 10.2 g/dL (12.0-16.0); Lymphocytes Absolute Auto 1700 /uL (1100-4500); Lymphocytes Percent Auto 19.4 % (25-40); Mean Corpuscular HGB Conc 32.4 % (30-36); Mean Corpuscular Hemoglobin 27.9 PG (26-34); Mean Corpuscular Volume 86.1 fL (80-100); Monocytes Absolute Auto 800 /uL (0-900); Monocytes Percent Auto 9.7 % (3-14); Neutrophils Absolute Auto 5700 /uL (1500-7000); Platelet Count 324 X10^3/uL (150-400); Red Blood Cell Count 3.65 X10^6/uL (4.0-5.2); Red Cell Distribution Width 15.8 % (11.6-14.8); White Blood Cell Count 8.8 X10^3/uL (4.5-11.0)
[2020-10-31 05:41] LABS: Potassium 5.6 mmol/L (3.4-5.1)
[2020-10-31] MEDS: LEVOTHYROXINE 100 MCG TABLET PO (06:24)
--- NOTE | 2020-10-31 06:46 | PC.NURSE ---
Spoke with Dr. Warner at 0638 regarding patients K of 5.6 at 0435 and 450cc of diarrhea at 2345. Verbal orders given for one time dose of 15gm Kayexalate now, repeat BMP at 1000, and C-Diff test on next stool. Read back. Patient resting in bed with call light within reach.
[2020-10-31 08:00] VITALS: BP 133/64; PULSE 67; RESP 15; TEMP 36
[2020-10-31] MEDS: cephALEXin 250 MG CAPSULE 500 MG PO (08:26)
[2020-10-31] MEDS: GABAPENTIN 300 MG CAPSULE PO (08:26)
[2020-10-31 08:27] VITALS: BP 133/64; PULSE 67
[2020-10-31] MEDS: ASPIRIN EC 81 MG TABLET PO (08:27)
[2020-10-31] MEDS: METOPROLOL ER 50 MG TABLET PO (08:27)
[2020-10-31] MEDS: CITALOPRAM 10 MG TABLET PO (08:27)
[2020-10-31] MEDS: SODIUM CHLORIDE 0.45% 1,000 ML 84 ML IV (08:34)
[2020-10-31] MEDS: LACTOBACILLUS ACIDOPHILUS TABLET 1 EACH PO (08:41)
--- NOTE | 2020-10-31 09:52 | PC.NURSE ---
Addendum entered by Angelito Gotti R.N. 10/31/20 13:50: Planning for d/c this afternoon once and daughter arrive. Original Note: Pt wakes easily , in good spirits. Offers no overt c/o pain. Nephrostomy tubes intact and patent. Pt taking B'fast refusing kayexalate. Dr. Warner aware. DR. Warner here talking with Pt. Lab to draw K+ at ten. Lab here now. Pt sitting up in bed presently.
[2020-10-31 10:48] LABS: BUN Creatinine Ratio 18.6 (6-22); Blood Urea Nitrogen 45 mg/dL (7-17); Calcium 9.2 mg/dL (8.4-10.2); Carbon Dioxide 21 mmol/L (22-32); Chloride 112 mmol/L (98-107); Glucose 154 mg/dL (80-110); HEMOLYSIS < 15 (0-50); Potassium 4.9 mmol/L (3.4-5.1); Sodium 141 mmol/L (137-145)
[2020-10-31 12:00] VITALS: BP 120/45; PULSE 68; RESP 15; TEMP 36; O2SAT 96
[2020-10-31 12:03] LABS: Clostridium Difficile Tox PCR Negative for C. diff (Negative)
--- NOTE | 2020-10-31 12:08 | PM.DS.1 ---
History of Present Illness History of Present Illness Date Patient Seen: 10/31/20 Time Patient Seen: 10:00 Chief complaint: cath not draining correct/ vomitting Narrative: [address] Joshi's admitted from the ED secondary to her catheter not draining correctly. Her indwelling catheter has been plagued with problems since placement for obstructive uropathy and hydronephrosis. The catheter did resolve the urinary retention issue but she has had problems with it not fitting her well and recently had UTIs on 06/29/20, 09/05/20, and 09/26/20 that required inpatient hospitalization. Urine cultures during this period have grown morganella morganii (09/01/20), diamond parapsilosis/Pseudomonas aeruginosa (09/14/20), and e-coli/pseduomonas, all sensitive to ciprofloxacin. For the diamond, she had a 7 day course of diflucan. Initially, her elderly was changing her catheter and there was concern about him being able to properly follow sterile technique. After her last discharge, home health was arranged to do the catheter changes. Dr. Cho, urology consulting but she has not seen him since her last admission. What brought her to the ED today is that she felt some generalized abdominal discomfort in the right upper quadrant region and right flank, more than usual, and had some vomiting yesterday. Due to the nausea, she was unable to take her usual medications in the last 24 hours. She had just 100 cc of output from her Navarro catheters since 7:00 a.m. this morning, 12 hours ago, and she had to milk the catheter to get the urine out. She felt there was a maybe a blockage in the navarro catheter itself. Prior to that, she did not have any output for several hours. CT KUB in the ED showed that the Navarro catheter was in the appropriate place and that the bladder was fully decompressed but there was ongoing severe bilateral hydronephrosis and moderate bilateral hydroureter with no significant change from 09/21/2020 when she was last imaged. However, there was a focus of ureteral thickening and periureteric fat stranding that had worsened when compared with the prior study, with increased ureteral wall thickening. Radiologist thought that this was likely due to ureteritis but that an underlying ureteral neoplasm could not be excluded. Creatinine is elevated at 3.81. Her baseline in the last 4 months has been approximately 2.0. Her last creatinine on 09/27/2020 was 2.53. Vital signs in the ED included a temperature of 97.4 F, heart rate 67, respirations 20, blood pressure 104/77, O2 saturation 97% on room air. Pertinent laboratory values included a white count of 27.3, elevated potassium at 5.9, elevated chloride at 108, low bicarb at 17, elevated BUN at 63, and an elevated glucose at 174. Procalcitonin also elevated at 0.73. COVID notably negative. She was given 2500 cc of normal saline, levofloxacin 750 mg IV x1 and Zosyn 4.5 mg IV x1 prior to transfer to the floor. Denies any current back or flank pain. No shortness of breath. This is her fourth inpatient hospitalization in 4 months. Discharge Providers Provider Date of admission: 10/23/20 15:00 Discharge Date: 10/31/20 Consults: 10/23/20 19:51 Consult to Discharge Planning Routine Comment: Consult to Occupational Therapy Evaluate & Treat Comment: Physician Instructions: Evaluate and treat Consult to Physical Therapy Evaluate & Treat Comment: Physician Instructions: Evaluate and Treat Consult to Physician Routine Comment: Consulting Provider: Leopoldo Cho Reason for consultation: obstructive uropathy, chronic UTIs, poorly fitting catheter Has provider been notified: No 10/26/20 08:30 Consult to Physician Routine Comment: Consulting Provider: Leopoldo Cho Reason for consultation: obstructive uropathy Has provider been notified: Yes Discharge provider: Keri Warner MD Summary Hospital Course Discharge Diagnosis: 1. Complicated urinary tract infection, acute on chronic, risk for urosepsis 2. Acute on chronic kidney disease, stage 4, likely exacerbated by UTI, acute dehydration, and obstructive uropathy 3. Obstructive uropathy, overflow incontinence,and detrusor instability with indwelling Navarro catheter 4. Electrolyte derangement, acute 5. Dibetes mellitus type 2 6. Hematuria, chronic 7. 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 Hypertension, chronic 9. Hyperlipidemia, chronic 10. Hypothyroidism, chronic 11. MORGAN, chronic 12. Morbid obesity, chronic 13. Chronic pain syndrome 14. Atrophic vaginitis 15. Depression/anxiety Hospital Course: The pt was admitted with complicated UTI with indwelling navarro. She was started on Levofloxacin and Zosyn. She also had obstructive uropathy with severe bilateral hydronephrosis and bilateral hydroureter, now with acute on chronic kidney disesae. She was maintained on IVF throughout her hospitalization, and Urology was consulted. [facility] Urology recommended stenting/nephrostomy tubes as soon as possible. The pts potassium trended up to 6.0, and Nephrology was consulted. They recommended Kayexalate 15mg up to TID with serial labs. Fluid challenges and Lasix were not recommended to the obstruction. Insulin was recommended if the potassium could not be controlled with Kayexalate. It was recommended that she be transferred for additional care, however no beds were available at alternative facilities for transfer. Urine culture grew E coli, and the pt was transitioned to IV Ceftriaxone. At the recommendation of Urology, Renogram was completed that showed bilateral obstruction. Transfer continued to be recommended to facility with Nephrology available, due to potential need for dialysis, and for IR-guided nephrostomy tube placement, however no beds were available. On 10/27, the pt was transferred to [facility] for the day for nephrostomy tube placement, which occurred without incident. The pt was then transferred back to [facility]. After the procedure, the pts creatinine began to gradually improve. Her tubes were draining well. Her antibiotics were transitioned to PO Keflex. The pts potassium was slow to respond. She required additional dosing of Kayexalate the day prior to discharge. On the day of discharge, her initial potassium was still elevated at 5.6. The pt declined Kayexalate at that time. Repeat potassium was 4.9. Discussed potentially monitoring longer, as it was quite erratic. The pt declined. Discussed the risks of untreated hyperkalemia, including potential fatal arrhythmia and . The pt stated that she was more concerned about quality of life than duration, and wished to be discharged home. The night prior to discharge, the pt did have some diarrhea. C diff was negative. The pt was already on probiotics, which will be continued at discharge. The day of discharge, the pts creatinine had improved to 2.42 with a GFR of 19.0. The pt will f/u with her PCP, Dr Joshi, within the next 5 days. She is discharging home, at her request, with home health visiting for PT/OT/nursing. She will continue flushing her nephrostomy tubes BID at home, and her family has been trained in this. She is to return tomorrow for repeat BMP to evaluate her potassium and creatinine. She will need f/u with Urology and q6wk IR-guided nephrostomy tube replacements. She will likely need f/u with Nephrology as well. She will continue her PO Keflex for a total of 14 days of UTI treatment. Status at Discharge Cognitive/behavioral status at discharge: oriented Functional status at discharge: uses cane/walker Overall status at discharge: patient is progressing back to baseline Exam Vital Signs (past 8 hours): - 10/31/20 04:15 10/31/20 08:00 10/31/20 08:27 Temperature 96.4 F L 96.8 F L Pulse Rate 71 67 67 Respiratory Rate 16 15 Blood Pressure 126/68 133/64 133/64 Pulse Oximetry 95 Oxygen Delivery Method Room Air Oxygen Flow Rate 96 Narrative Exam Narrative: Gen: NAD, sitting comfortably in chair, appears well CV: RRR, no murmurs Resp: clear to auscultation bilaterally Abd: soft, nondistended, nontender, normoactive bowel sounds Ext: no edema Objective Labs Result Diagrams: 10/31/20 04:35 10/31/20 10:00 Labs: Laboratory Results - last 24 hr 10/30/20 10/30/20 10/31/20 16:14 21:30 04:35 WBC 8.8 RBC 3.65 L Hgb 10.2 L Hct 31.5 L MCV 86.1 MCH 27.9 MCHC 32.4 RDW 15.8 H Plt Count 324 Neut % (Auto) 65.0 Lymph % (Auto) 19.4 L [place] % (Auto) 9.7 Eos % (Auto) 4.5 H Baso % (Auto) 1.4 Neut # (Auto) 5700 Lymph # (Auto) 1700 [place] # (Auto) 800 Eos # (Auto) 400 Baso # (Auto) 100 Sodium 141 137 Potassium 5.4 H 5.8 H Chloride 111 H 111 H Carbon Dioxide 19 L 19 L BUN 51 H 54 H Creatinine 2.92 H 2.65 H Estimated GFR 15.3 L 17.1 L BUN/Creatinine Ratio 17.5 20.4 Glucose 93 110 Calcium 9.2 8.8 Total Bilirubin AST ALT Alkaline Phosphatase Total Protein Albumin Globulin Albumin/Globulin Ratio C. difficile Tox (PCR) 10/31/20 10/31/20 10/31/20 04:35 10:00 11:00 WBC RBC Hgb Hct MCV MCH MCHC RDW Plt Count Neut % (Auto) Lymph % (Auto) [place] % (Auto) Eos % (Auto) Baso % (Auto) Neut # (Auto) Lymph # (Auto) [place] # (Auto) Eos # (Auto) Baso # (Auto) Sodium 138 141 Potassium 5.6 H 4.9 Chloride 112 H 112 H Carbon Dioxide 21 L 21 L BUN 49 H 45 H Creatinine 2.57 H 2.42 H Estimated GFR 17.7 L 19.0 L BUN/Creatinine Ratio 19.1 18.6 Glucose 98 154 H Calcium 8.9 9.2 Total Bilirubin 0.2 AST 28 ALT 28 Alkaline Phosphatase 108 Total Protein 6.7 Albumin 3.0 L Globulin 3.7 Albumin/Globulin Ratio 0.8 L C. difficile Tox (PCR) Negative for c. diff PFSH Medical History Anxiety Calculus of kidney Depression GI bleed Gross hematuria History of recurrent UTI (urinary tract infection) HTN (hypertension) Hypothyroid Nephrolithiasis Noncompliant neurogenic bladder Obstructive uropathy MORGAN on CPAP Peptic ulcer disease Pneumothorax Postmenopausal atrophic vaginitis Ureteral obstruction, left Urinary incontinence, mixed Surgical History H/O gastric bypass H/O mastectomy History of back surgery History of hip replacement History of thyroidectomy Hx of bilateral cataract extraction (2012) Hx of cystoscopy (08/04/19) Nephrostomy status Family History Father Seizures Mother Heart disease Diabetes mellitus Brother No significant medical problems Sister Diabetes mellitus Grandmother Diabetes mellitus Social History household members: spouse Smoking Status: Never smoker alcohol intake: never eating out: rarely or never Type(s) of exercise: none Discharge Plan Discharge Plan Patient Disposition: Home Health Service Provider Discharge Comment: Please flush nephrostomy tubes twice/day. Please have your lab work (BMP) drawn tomorrow. Discharge orders & Medications Prescriptions: New Bacid 1 billion cell- 250 mg Tablet 1 tab PO BIDWM Qty: 60 RF: 0 cephalexin 250 mg Capsule 500 mg PO BID Qty: 10 RF: 0 Continued citalopram 10 MG tablet 10 mg PO QDAY Qty: 0 RF: 0 levothyroxine 100 MCG tablet 100 mcg PO QAM Qty: 0 RF: 0 aspirin 81 MG tablet,chewable 81 mg PO QDAY Qty: 0 RF: 0 gabapentin [Neurontin] 300 MG capsule 300 mg PO TID Qty: 0 RF: 0 [place] 60 mg tablet See Rx Instructions .ROUTE .COMPLEX Qty: 90 RF: 0 metoprolol succinate 50 mg tablet extended release 24 hr 50 mg PO DAILY RF: 0 triamcinolone acetonide 0.1 % cream 1 applic TOPICAL PRN PRN (Reason: rash) RF: 0 tramadol 50 mg tablet 50 mg PO Q6H PRN (Reason: pain) Qty: 10 RF: 0 Discontinued ciprofloxacin HCl 500 mg tablet 500 mg PO BID Qty: 10 RF: 0 fluconazole [Diflucan] 150 mg tablet 150 mg PO DAILY Qty: 1 RF: 0 Follow up/Referrals: Sd Joshi MD [Physician] - 3-5 Days Diet/Activity/Treatments Diet: Diet as Tolerated Skin/Wound/Dressing Care Report to your healthcare provider any signs of infection, such as:: chills, fever, increased pain and unusual drainage Visit Report/Discharge Packet Instructions: Urinary Tract Infection, DI for Kidney Failure, DI for Urinary Tract Infection (UTI), Nephrostomy, DI for Nephrostomy, DI for Prescription Opioid Use, Cephalexin Visit Report Forms: Congestive Heart Failure, Patient Portal/API, Stroke Signs & Symptoms Quality VTE Deep Vein Thrombosis/Pulmonary Embolism Present on Admission: No
[2020-10-31] MEDS: INSULIN LISPRO 100 UNIT/ML 3ML VIAL SUBCUT (12:25)
[2020-10-31] MEDS: SODIUM CHLORIDE 0.9% FLUSH 10 ML IV (12:27)
--- NOTE | 2020-10-31 12:47 | PT-IP ANOTE ---
Contacted pt for PT treatment. She is preparing to discharge today with resumed HH services. She denies any PT needs. Will follow up Sunday if pt has not yet discharged.
--- NOTE | 2020-10-31 13:34 | CM.DPC ---
DCP cONT: Patient is being discharged home today. Went ahead and completed resumption orders for home health RN, P.T, O.T. Faxed this and DC Summary to [facility]. Called [place] and spoke to Emily, and let her know that patient is being discharged home today. P: Patient is discharging home today with resumption of [facility]. Copy of IMM was given to patient. Didi Rowland RN/Conservation Coordinator
== END 2020-10-31 15:30 | disposition home health service (06) | DRG 699 ==
LOC: ED 14:07 → AC 15:01
PROVIDERS: Family Medicine; Admitting Provider Student in an Organized Health Care Education/Training Program; Emergency Provider Emergency Medicine; Referring Provider Emergency Medicine; Visit Provider Family Medicine
DX: T83.511A Infection and inflammatory reaction due to indwelling urethral catheter, initial encounter (principal); N17.9 Acute kidney failure, unspecified; Z68.41 Body mass index [BMI] 40.0-44.9, adult; Z16.23 Resistance to quinolones and fluoroquinolones; N13.6 Pyonephrosis; N18.4 Chronic kidney disease, stage 4 (severe); N39.0 Urinary tract infection, site not specified; M25.531 Pain in right wrist; R31.9 Hematuria, unspecified; I12.9 Hypertensive chronic kidney disease with stage 1 through stage 4 chronic kidney disease, or unspecified chronic kidney disease; E11.22 Type 2 diabetes mellitus with diabetic chronic kidney disease; E66.01 Morbid (severe) obesity due to excess calories; B96.20 Unspecified Escherichia coli [E. coli] as the cause of diseases classified elsewhere; E86.0 Dehydration; I48.0 Paroxysmal atrial fibrillation; I44.0 Atrioventricular block, first degree; E78.5 Hyperlipidemia, unspecified; G89.4 Chronic pain syndrome; N95.2 Postmenopausal atrophic vaginitis; E03.9 Hypothyroidism, unspecified; G47.33 Obstructive sleep apnea (adult) (pediatric); F32.9 Major depressive disorder, single episode, unspecified; F41.9 Anxiety disorder, unspecified; E87.5 Hyperkalemia; E87.8 Other disorders of electrolyte and fluid balance, not elsewhere classified; R19.7 Diarrhea, unspecified; Z20.821 Contact with and (suspected) exposure to Zika virus
CPT/HCPCS: 36415; 73110; 74176; 78708; 80048; 80053; 81001; 82962; 83605; 83690; 84132; 84145; 85025; 87040; 87077; 87086; 87150; 87186; 87205; 87493; 87635; 94762; 96365; 96366; 96367; 97110; 97116; 97162; 97166; 97530; 97535; 99232; 99233; 99238; 99284; A9562; C9803; J0696; J1815; J1956; J2405; J2543; J7050

== ENCOUNTER → 2020-11-01 08:45 | Outpatient (CLI) | payer MEDICARE, OTHER, SELFPAY ==
[2020-10-23 16:40] VITALS: BMI 42.8
[2020-11-01 10:01] LABS: BUN Creatinine Ratio 21.4 (6-22); Blood Urea Nitrogen 48 mg/dL (7-17); Calcium 9.6 mg/dL (8.4-10.2); Carbon Dioxide 22 mmol/L (22-32); Chloride 110 mmol/L (98-107); Estimated Glomerular Filt Rate 20.8 mL/min (>60); Glucose 223 mg/dL (80-110); HEMOLYSIS < 15 (0-50); Sodium 139 mmol/L (137-145)
[2020-11-01 10:04] LABS: Potassium 5.5 mmol/L (3.4-5.1)
== END ==
PROVIDERS: PCP Family Medicine; Referring Provider Family Medicine; Visit Provider Family Medicine
DX: N17.9 Acute kidney failure, unspecified (principal); N18.9 Chronic kidney disease, unspecified; E87.5 Hyperkalemia
CPT/HCPCS: 36415; 80048

== ENCOUNTER → 2020-11-03 16:21 | Outpatient (CLI) | payer MEDICARE, OTHER, SELFPAY ==
[2020-10-23 16:40] VITALS: BMI 42.8
[2020-11-03 17:56] LABS: BUN Creatinine Ratio 18.6 (6-22); Blood Urea Nitrogen 38 mg/dL (7-17); Calcium 9.5 mg/dL (8.4-10.2); Carbon Dioxide 22 mmol/L (22-32); Chloride 108 mmol/L (98-107); Estimated Glomerular Filt Rate 23.1 mL/min (>60); Glucose 84 mg/dL (80-110); HEMOLYSIS < 15 (0-50); Sodium 139 mmol/L (137-145)
[2020-11-03 17:57] LABS: Potassium 5.5 mmol/L (3.4-5.1)
== END ==
PROVIDERS: PCP Family Medicine; Referring Provider Family Medicine; Visit Provider Family Medicine
DX: I10 Essential (primary) hypertension (principal); E87.5 Hyperkalemia; E11.22 Type 2 diabetes mellitus with diabetic chronic kidney disease
CPT/HCPCS: 36415; 80048

== ENCOUNTER 2020-12-16 20:30 | Emergency (ER) | payer MEDICARE, OTHER, SELFPAY ==
[2020-11-09 13:02] VITALS: BMI 42.8
[2020-12-16 20:42] VITALS: BP 106/55; PULSE 94; RESP 20; TEMP 36.1; O2SAT 97
--- NOTE | 2020-12-16 22:27 | PC.NURSE ---
Pt has bilateral nephrostomy. states left side hasn't drained all day. Observed tubing. noticed cockstop turned up towards kidney. Opened up and urine started flowing. Urine from left nephrostomy straw color.
--- NOTE | 2020-12-16 22:46 | ED_ITS ---
HPI - Female Genitourinary General Chief complaint: Urogenital-Female Stated complaint: plugged nephrostomy tube Time Seen by Provider: 12/16/20 22:25 Source: patient Mode of arrival: Wheelchair Limitations: no limitations History of Present Illness HPI Narrative: This is an 85-year-old female comes emergency department with concern for plug nephrostomy tube. Patient just was discharged from [facility] after having her left urostomy/nephrostomy tube placed 4 days ago. It had fallen out previously needed to be replaced. She actually has bilateral nephrostomy tubes. Patient states that she was having some bloody drainage immediately afterwards, she noted last night some slightly clearing. Patient states that she had some clearing more mima urine last night and noted this morning that she was not having much drainage. She has had almost none. Our nursing staff noted that the catheter stopcock was inappropriately twisted and adjusted this and immediately began draining. Patient does have a little bit more dark id urine drainage at this time. She denies fevers, no chills. No new pain, no back or flank pain at this time. No abdominal pain. She does not make any urine from the bladder. She has not had any changes to bowel movements. No black or bloody stools. Related Data Home Medications Medication Instructions Recorded Confirmed aspirin 81 mg chewable tablet 81 mg PO QDAY #0 01/31/16 11/10/20 citalopram 10 mg tablet 10 mg PO QDAY #0 01/31/16 11/10/20 gabapentin 300 mg capsule 300 mg PO TID #0 01/31/16 11/10/20 (Neurontin) levothyroxine 100 mcg tablet 100 mcg PO QAM #0 01/31/16 11/10/20 metoprolol succinate 50 mg 50 mg PO DAILY 08/04/19 11/10/20 tablet,extended release 24 hr triamcinolone acetonide 0.1 % 1 applic TOPICAL PRN PRN 09/05/20 11/10/20 topical cream Previous Rx's Medication Instructions Recorded tramadol 50 mg tablet 50 mg PO Q6H PRN #10 tab 09/06/20 ospemifene 60 mg tablet (Osphena) See Rx Instructions .ROUTE 10/18/20 .COMPLEX #90 tab L.acidophilus-L.bulgar-B.bifid-S.thermoph 1 tab PO BIDWM #60 tab 10/31/20 1 billion cell-250 mg tablet (Bacid) sodium chloride 0.9 % (flush) (BD 5 ml INTRA-CATHETER Q12H #1000 ml 11/10/20 PosiFlush Normal Saline 0.9) y-site line connector, closed #1 ea 11/10/20 Allergies Allergy/AdvReac Type Severity Reaction Status Date / Time alcohol Allergy Severe Rash, Verified 11/10/20 11:17 facial swelling amphotericin B AdvReac Severe Jittery, Verified 11/10/20 11:17 [AMPHOTERICIN B] tremors Review of Systems Review of Systems ROS Unobtainable: All systems reviewed & are unremarkable except as noted in HPI and below Patient History Medical History Anxiety Calculus of kidney Depression GI bleed Gross hematuria History of recurrent UTI (urinary tract infection) HTN (hypertension) Hypothyroid Nephrolithiasis Noncompliant neurogenic bladder Obstructive uropathy MORGAN on CPAP Peptic ulcer disease Pneumothorax Postmenopausal atrophic vaginitis Ureteral obstruction, left Urinary incontinence, mixed Surgical History H/O gastric bypass H/O mastectomy History of back surgery History of hip replacement History of thyroidectomy Hx of bilateral cataract extraction (2012) Hx of cystoscopy (08/04/19) Nephrostomy status Family History Father Seizures Mother Heart disease Diabetes mellitus Brother No significant medical problems Sister Diabetes mellitus Grandmother Diabetes mellitus alcohol intake frequency: other Substance Use Type: does not use Exam Narrative Exam Narrative: GENERAL: Alert and oriented x three, obese female in mild distress. HEENT: Head normocephalic, atraumatic, EOMI, pupils reactive, face symmetric, moist mucous membranes NECK: Supple, full range of motion CARDIOVASCULAR: Regular rate and rhythm without murmurs, rubs or gallops. RESPIRATORY: Breath sounds equal bilaterally, no wheezes rales or rhonchi. ABDOMEN: Soft, nontender. Normoactive bowel sounds all 4 quadrants. No guarding or rebound, rigidity, no mass : No CVA tenderness. Patient has bilateral nephrostomy tubes. On the left incision appears clean and dry with some dried blood underneath the Tegaderm but no warmth or erythema or active drainage. The tube itself is draining slightly discolored urine actively. The right nephrostomy tube is actively draining light colored clear urine. EXTREMITIES: Normal range of motion, no clubbing or edema. Neurovascularly intact NEUROLOGICAL: Cranial nerves II through XII grossly intact. Moving all extremities SKIN: Warm, dry, no petechiae, no rashes or lesions. Initial Vital Signs Initial Vital Signs: Vital Signs Temperature 97 F L 12/16/20 20:42 Pulse Rate 94 H 12/16/20 20:42 Respiratory Rate 20 12/16/20 20:42 Blood Pressure 106/55 L 12/16/20 20:42 Pulse Oximetry 97 12/16/20 20:42 Course Vital Signs Vital signs: Vital Signs - 8 hr 12/16/20 20:42 Temperature 97 F L Pulse Rate 94 H Respiratory Rate 20 Blood Pressure 106/55 L Pulse Oximetry 97 Discharge Plan Departure Patient Disposition: Home Clinical Impression: Obstruction of urostomy catheter Instructions: How to Care for Your Urostomy Activity Restrictions/Additional Instructions: Follow up with home health care tomorrow. Also feel free to touch base with Dr. Cho's office. Your catheter was not truly block today, the stopcock was just not in the correct position to allow it to drain properly. Please return for fevers, new pain, if you are not having any drainage, if you are having purulent drainage, new changes of coloration or concerning changes. Prescriptions: No Action citalopram 10 MG tablet 10 mg PO QDAY Qty: 0 RF: 0 levothyroxine 100 MCG tablet 100 mcg PO QAM Qty: 0 RF: 0 aspirin 81 MG tablet,chewable 81 mg PO QDAY Qty: 0 RF: 0 gabapentin [Neurontin] 300 MG capsule 300 mg PO TID Qty: 0 RF: 0 Osphena 60 mg tablet See Rx Instructions .ROUTE .COMPLEX Qty: 90 RF: 0 Bacid 1 billion cell- 250 mg Tablet 1 tab PO BIDWM Qty: 60 RF: 0 metoprolol succinate 50 mg tablet extended release 24 hr 50 mg PO DAILY RF: 0 triamcinolone acetonide 0.1 % cream 1 applic TOPICAL PRN PRN (Reason: rash) RF: 0 tramadol 50 mg tablet 50 mg PO Q6H PRN (Reason: pain) Qty: 10 RF: 0 sodium chloride 0.9 % (flush) [BD PosiFlush Normal Saline 0.9] Syringe 5 ml intra-catheter Q12H Qty: 1000 RF: 3 (DME) y-site line connector, closed Misc See Rx Instructions .Route Qty: 1 RF: 0 Referrals: Leopoldo Cho MD [Physician] - Sd Joshi MD [Primary Care Provider] -
== END 2020-12-16 23:19 | disposition home or self-care (01) ==
PROVIDERS: Emergency Provider Emergency Medicine; PCP Family Medicine
DX: T83.098A Other mechanical complication of other urinary catheter, initial encounter (principal)
CPT/HCPCS: 99281

== ENCOUNTER → 2021-01-22 10:35 | Outpatient (CLI) | payer MEDICARE, OTHER, SELFPAY ==
[2020-11-09 13:02] VITALS: BMI 42.8
[2021-01-22 11:04] LABS: Add Manual Diff / Slide Review NO; Basophils Absolute Auto 100 /uL (0-100); Eosinophils Absolute Auto 500 /uL (0-450); Eosinophils Percent Auto 4.8 % (2-4); Hematocrit 40.3 % (36-46); Hemoglobin 12.9 g/dL (12.0-16.0); Lymphocytes Absolute Auto 1800 /uL (1100-4500); Lymphocytes Percent Auto 18.6 % (25-40); Mean Corpuscular HGB Conc 32.1 % (30-36); Mean Corpuscular Hemoglobin 28.2 PG (26-34); Mean Corpuscular Volume 87.8 fL (80-100); Monocytes Absolute Auto 800 /uL (0-900); Monocytes Percent Auto 8.1 % (3-14); Neutrophils Absolute Auto 6400 /uL (1500-7000); Neutrophils Percent Auto 67.5 % (50-75); Platelet Count 259 X10^3/uL (150-400); Red Blood Cell Count 4.59 X10^6/uL (4.0-5.2); Red Cell Distribution Width 15.4 % (11.6-14.8); White Blood Cell Count 9.5 X10^3/uL (4.5-11.0)
[2021-01-22 11:26] LABS: BUN Creatinine Ratio 16.9 (6-22); Blood Urea Nitrogen 32 mg/dL (7-17); Calcium 9.5 mg/dL (8.4-10.2); Carbon Dioxide 27 mmol/L (22-32); Chloride 102 mmol/L (98-107); Estimated Glomerular Filt Rate 25.3 mL/min (>60); Glucose 161 mg/dL (80-110); HEMOLYSIS < 15 (0-50); Potassium 4.7 mmol/L (3.4-5.1); Sodium 138 mmol/L (137-145)
[2021-01-22 11:42] LABS: Creatinine Urine Random 53.9 mg/dL
[2021-01-22 12:17] LABS: Microalbumi Creatinin Ratio Ur 766.2 ug/mg CR (<30); Microalbumin Urine Random 41.3 mg/dL (0-1.6)
== END ==
PROVIDERS: PCP Family Medicine; Referring Provider Internal Medicine Nephrology; Visit Provider Internal Medicine Nephrology
DX: N18.4 Chronic kidney disease, stage 4 (severe) (principal); N28.9 Disorder of kidney and ureter, unspecified; D63.1 Anemia in chronic kidney disease
CPT/HCPCS: 36415; 80048; 82043; 82570; 85025

== ENCOUNTER → 2021-05-02 12:06 | Outpatient (CLI) | payer MEDICARE, OTHER, SELFPAY ==
[2020-11-09 13:02] VITALS: BMI 42.8
[2021-05-02 13:07] LABS: Add Manual Diff / Slide Review NO; Basophils Absolute Auto 100 /uL (0-100); Basophils Percent Auto 0.8 % (0-2); Eosinophils Absolute Auto 400 /uL (0-450); Hematocrit 36.7 % (36-46); Hemoglobin 11.8 g/dL (12.0-16.0); Lymphocytes Absolute Auto 1500 /uL (1100-4500); Mean Corpuscular HGB Conc 32.2 % (30-36); Mean Corpuscular Hemoglobin 26.3 PG (26-34); Mean Corpuscular Volume 81.6 fL (80-100); Monocytes Absolute Auto 1200 /uL (0-900); Monocytes Percent Auto 12.3 % (3-14); Neutrophils Absolute Auto 6700 /uL (1500-7000); Neutrophils Percent Auto 67.9 % (50-75); Platelet Count 281 X10^3/uL (150-400); Red Blood Cell Count 4.49 X10^6/uL (4.0-5.2); Red Cell Distribution Width 17.1 % (11.6-14.8); White Blood Cell Count 9.9 X10^3/uL (4.5-11.0)
[2021-05-02 13:37] LABS: BUN Creatinine Ratio 17.5 (6-22); Blood Urea Nitrogen 38 mg/dL (7-17); Calcium 9.2 mg/dL (8.4-10.2); Carbon Dioxide 27 mmol/L (22-32); Chloride 108 mmol/L (98-107); Estimated Glomerular Filt Rate 21.6 mL/min (>60); Glucose 88 mg/dL (80-110); HEMOLYSIS < 15 (0-50); Magnesium 2.1 mg/dL (1.6-2.3); Potassium 4.8 mmol/L (3.4-5.1); Sodium 143 mmol/L (137-145); Uric Acid 6.4 mg/dL (2.5-6.2)
[2021-05-02 14:19] LABS: Creatinine Urine Random 61.5 mg/dL
[2021-05-02 14:37] LABS: Microalbumi Creatinin Ratio Ur 710.5 ug/mg CR (<30); Microalbumin Urine Random 43.7 mg/dL (0-1.6)
[2021-05-02 14:40] LABS: Vitamin D 25 Hydroxy (D3) 30.4 ng/mL (30.0-100.0)
[2021-05-03 07:36] LABS: Parathyroid Hormone Int 140 pg/mL (15-65)
== END ==
PROVIDERS: PCP Family Medicine; Referring Provider Internal Medicine Nephrology; Visit Provider Internal Medicine Nephrology
DX: N18.4 Chronic kidney disease, stage 4 (severe) (principal)
CPT/HCPCS: 36415; 80048; 82043; 82306; 82570; 83735; 83970; 84100; 84550; 85025

== ENCOUNTER → 2021-07-01 09:20 | Outpatient (CLI) | payer MEDICARE, OTHER, SELFPAY ==
[2020-11-09 13:02] VITALS: BMI 42.8
[2021-07-01 10:02] LABS: Add Manual Diff / Slide Review NO; Basophils Absolute Auto 100 /uL (0-100); Basophils Percent Auto 1.2 % (0-2); Eosinophils Absolute Auto 400 /uL (0-450); Eosinophils Percent Auto 4.8 % (2-4); Lymphocytes Absolute Auto 1200 /uL (1100-4500); Lymphocytes Percent Auto 15.5 % (25-40); Mean Corpuscular HGB Conc 32.3 % (30-36); Mean Corpuscular Hemoglobin 27.2 PG (26-34); Mean Corpuscular Volume 84.2 fL (80-100); Monocytes Absolute Auto 600 /uL (0-900); Monocytes Percent Auto 7.9 % (3-14); Neutrophils Absolute Auto 5400 /uL (1500-7000); Neutrophils Percent Auto 70.6 % (50-75); Platelet Count 221 X10^3/uL (150-400); Red Cell Distribution Width 18.4 % (11.6-14.8); White Blood Cell Count 7.7 X10^3/uL (4.5-11.0)
[2021-07-01 10:58] LABS: BUN Creatinine Ratio 18.5 (6-22); Blood Urea Nitrogen 37 mg/dL (7-17); Calcium 9.2 mg/dL (8.4-10.2); Carbon Dioxide 27 mmol/L (22-32); Chloride 107 mmol/L (98-107); Estimated Glomerular Filt Rate 24 mL/min (>60); Glucose 152 mg/dL (80-110); HEMOLYSIS < 15 (0-50); Potassium 5.2 mmol/L (3.4-5.1); Sodium 143 mmol/L (137-145)
== END ==
PROVIDERS: PCP Family Medicine; Referring Provider Internal Medicine Nephrology; Visit Provider Internal Medicine Nephrology
DX: N18.4 Chronic kidney disease, stage 4 (severe) (principal); D63.1 Anemia in chronic kidney disease
CPT/HCPCS: 36415; 80048; 85025

== ENCOUNTER → 2021-09-21 13:39 | Outpatient (CLI) | payer MEDICARE, OTHER, SELFPAY ==
[2020-11-09 13:02] VITALS: BMI 42.8
[2021-09-21 14:49] LABS: BUN Creatinine Ratio 19.6 (6-22); Blood Urea Nitrogen 37 mg/dL (7-17); Calcium 9.7 mg/dL (8.4-10.2); Carbon Dioxide 25 mmol/L (22-32); Chloride 108 mmol/L (98-107); Estimated Glomerular Filt Rate 26 mL/min (>60); Glucose 78 mg/dL (80-110); HEMOLYSIS < 15 (0-50); Potassium 4.9 mmol/L (3.4-5.1); Sodium 141 mmol/L (137-145)
== END ==
PROVIDERS: PCP Family Medicine; Referring Provider Internal Medicine Nephrology; Visit Provider Internal Medicine Nephrology
DX: E87.5 Hyperkalemia (principal)
CPT/HCPCS: 36415; 80048

== ENCOUNTER → 2021-09-27 11:57 | Outpatient (CLI) | payer MEDICARE, OTHER, SELFPAY ==
[2020-11-09 13:02] VITALS: BMI 42.8
--- NOTE | 2021-09-27 | DI.MG.S_ITS ---
BILATERAL DIGITAL SCREENING MAMMOGRAM 3D/2D WITH CAD: 09/27/2021 CLINICAL: Routine screening. Comparison is made to exams dated: 09/09/2018 mammogram, 08/30/2017 mammogram, 08/17/2016 mammogram, and 08/17/2015 mammogram - [facility]. There are scattered fibroglandular elements in both breasts. Current study was also evaluated with a Computer Aided Detection (CAD) system. There are benign calcifications in both breasts. There also are benign vascular calcifications in both breasts. No significant masses, calcifications, or other findings are seen in either breast. There has been no significant interval change. IMPRESSION: BENIGN There is no mammographic evidence of malignancy. A 1 year screening mammogram is recommended. Based on the Tyrer Cuzick model (a risk assessment model) the patient's lifetime risk is % and her 10 year risk is %. According to the ACR, ACS, and NCCN guidelines, an annual breast MRI exam along with mammogram is recommended if the patient's lifetime risk is 20% or greater. This exam was interpreted at Station ID: [id number]. NOTE: For mammograms, a report in lay terms will be sent to the patient. Approximately 15% of breast malignancies will not be visualized mammographically. In the management of a palpable breast mass, a negative mammogram must not discourage biopsy of a clinically suspicious lesion. Electronically Signed By: Jerome [email or web address]:09/27/2021 13:19:14 letter sent: Normal Exam ACR BI-RADS Category 2: Benign Finding(s) 3342F
== END ==
PROVIDERS: PCP Family Medicine; Referring Provider Family Medicine; Visit Provider Family Medicine
DX: Z12.31 Encounter for screening mammogram for malignant neoplasm of breast (principal)
CPT/HCPCS: 77063; 77067

== ENCOUNTER → 2021-12-16 07:26 | Outpatient (CLI) | payer MEDICARE, OTHER, SELFPAY ==
[2020-11-09 13:02] VITALS: BMI 42.8
[2021-12-16 08:45] LABS: Add Manual Diff / Slide Review NO; Basophils Absolute Auto 100 /uL (0-100); Basophils Percent Auto 1.3 % (0-2); Eosinophils Absolute Auto 400 /uL (0-450); Eosinophils Percent Auto 5.1 % (2-4); Hemoglobin 13.7 g/dL (12.0-16.0); Lymphocytes Absolute Auto 1600 /uL (1100-4500); Lymphocytes Percent Auto 19.1 % (25-40); Mean Corpuscular HGB Conc 33.3 % (30-36); Mean Corpuscular Volume 86.8 fL (80-100); Monocytes Absolute Auto 700 /uL (0-900); Monocytes Percent Auto 8.7 % (3-14); Neutrophils Absolute Auto 5600 /uL (1500-7000); Neutrophils Percent Auto 65.8 % (50-75); Platelet Count 246 X10^3/uL (150-400); Red Blood Cell Count 4.72 X10^6/uL (4.0-5.2); Red Cell Distribution Width 16.2 % (11.6-14.8); White Blood Cell Count 8.5 X10^3/uL (4.5-11.0)
[2021-12-16 09:21] LABS: Alanine Aminotransferase 17 IU/L (<35); Albumin 3.9 g/dL (3.5-5.0); Albumin Globulin Ratio 1.1 (1.0-2.8); Alkaline Phosphatase 140 U/L (38-126); Aspartate Aminotransferase 23 IU/L (14-36); BUN Creatinine Ratio 20.2 (6-22); Bilirubin Total 0.5 mg/dL (0.2-1.3); Blood Urea Nitrogen 46 mg/dL (7-17); Calcium 9.3 mg/dL (8.4-10.2); Carbon Dioxide 23 mmol/L (22-32); Chloride 104 mmol/L (98-107); Estimated Glomerular Filt Rate 20 mL/min (>60); Globulin 3.5 g/dL (1.7-4.1); Glucose 175 mg/dL (80-110); HEMOLYSIS < 15 (0-50); Potassium 4.7 mmol/L (3.4-5.1); Sodium 141 mmol/L (137-145); Total Protein 7.4 g/dL (6.3-8.2)
== END ==
PROVIDERS: PCP Family Medicine; Referring Provider Radiology Diagnostic Radiology; Visit Provider Radiology Diagnostic Radiology
DX: R33.9 Retention of urine, unspecified (principal)
CPT/HCPCS: 36415; 80053; 85025

== ENCOUNTER → 2022-03-01 08:04 | Outpatient (CLI) | payer MEDICARE, OTHER, SELFPAY ==
[2020-11-09 13:02] VITALS: BMI 42.8
[2022-03-01 08:37] LABS: Add Manual Diff / Slide Review NO; Basophils Absolute Auto 100 /uL (0-100); Basophils Percent Auto 0.9 % (0-2); Eosinophils Absolute Auto 500 /uL (0-450); Eosinophils Percent Auto 7.2 % (2-4); Hematocrit 39.5 % (36-46); Hemoglobin 12.8 g/dL (12.0-16.0); Lymphocytes Absolute Auto 1600 /uL (1100-4500); Lymphocytes Percent Auto 22.5 % (25-40); Mean Corpuscular HGB Conc 32.5 % (30-36); Mean Corpuscular Hemoglobin 28.8 PG (26-34); Mean Corpuscular Volume 88.6 fL (80-100); Monocytes Absolute Auto 800 /uL (0-900); Monocytes Percent Auto 11.1 % (3-14); Neutrophils Absolute Auto 4200 /uL (1500-7000); Neutrophils Percent Auto 58.3 % (50-75); Platelet Count 228 X10^3/uL (150-400); Red Blood Cell Count 4.46 X10^6/uL (4.0-5.2); Red Cell Distribution Width 15.8 % (11.6-14.8); White Blood Cell Count 7.3 X10^3/uL (4.5-11.0)
[2022-03-01 09:01] LABS: BUN Creatinine Ratio 18.2 (6-22); Blood Urea Nitrogen 36 mg/dL (7-17); Calcium 8.8 mg/dL (8.4-10.2); Carbon Dioxide 26 mmol/L (22-32); Chloride 106 mmol/L (98-107); Estimated Glomerular Filt Rate 24 mL/min (>60); Glucose 104 mg/dL (80-110); HEMOLYSIS < 15 (0-50); Magnesium 2.1 mg/dL (1.6-2.3); Phosphorous 4.4 mg/dL (2.8-4.1); Potassium 4.9 mmol/L (3.4-5.1); Sodium 143 mmol/L (137-145); Uric Acid 6.5 mg/dL (2.5-6.2)
[2022-03-01 09:43] LABS: Vitamin D 25 Hydroxy (D3) 55.9 ng/mL (30.0-100.0)
[2022-03-02 10:22] LABS: Parathyroid Hormone Int 161 pg/mL (15-65)
== END ==
PROVIDERS: PCP Family Medicine; Referring Provider Internal Medicine Nephrology; Visit Provider Internal Medicine Nephrology
DX: N18.4 Chronic kidney disease, stage 4 (severe) (principal)
CPT/HCPCS: 36415; 80048; 82306; 83735; 83970; 84100; 84550; 85025

== ENCOUNTER → 2022-06-23 16:30 | Outpatient (CLI) | payer MEDICARE, OTHER, SELFPAY ==
[2020-11-09 13:02] VITALS: BMI 42.8
[2022-06-23 17:31] LABS: Add Manual Diff / Slide Review NO; Basophils Absolute Auto 100 /uL (0-100); Basophils Percent Auto 0.8 % (0-2); Eosinophils Absolute Auto 500 /uL (0-450); Eosinophils Percent Auto 4.3 % (2-4); Hematocrit 42.3 % (36-46); Hemoglobin 13.9 g/dL (12.0-16.0); Lymphocytes Absolute Auto 1600 /uL (1100-4500); Mean Corpuscular HGB Conc 32.9 % (30-36); Mean Corpuscular Hemoglobin 29.8 PG (26-34); Mean Corpuscular Volume 90.5 fL (80-100); Monocytes Absolute Auto 1000 /uL (0-900); Monocytes Percent Auto 9.4 % (3-14); Neutrophils Absolute Auto 7300 /uL (1500-7000); Neutrophils Percent Auto 70.5 % (50-75); Platelet Count 232 X10^3/uL (150-400); Red Blood Cell Count 4.67 X10^6/uL (4.0-5.2); Red Cell Distribution Width 14.5 % (11.6-14.8); White Blood Cell Count 10.4 X10^3/uL (4.5-11.0)
[2022-06-23 17:56] LABS: BUN Creatinine Ratio 22.5 (6-22); Blood Urea Nitrogen 42 mg/dL (7-17); Calcium 9.6 mg/dL (8.4-10.2); Carbon Dioxide 24 mmol/L (22-32); Chloride 104 mmol/L (98-107); Estimated Glomerular Filt Rate 26 mL/min (>60); Glucose 90 mg/dL (80-110); HEMOLYSIS < 15 (0-50); Magnesium 2.2 mg/dL (1.6-2.3); Phosphorous 4.1 mg/dL (2.8-4.1); Potassium 5.1 mmol/L (3.4-5.1); Sodium 138 mmol/L (137-145); Uric Acid 6.8 mg/dL (2.5-6.2)
[2022-06-23 18:11] LABS: Vitamin D 25 Hydroxy (D3) 47.8 ng/mL (30.0-100.0)
[2022-06-27 12:08] LABS: Parathyroid Hormone Int 127 pg/mL (15-65)
== END ==
PROVIDERS: PCP Family Medicine; Referring Provider Internal Medicine Nephrology; Visit Provider Internal Medicine Nephrology
DX: N18.4 Chronic kidney disease, stage 4 (severe) (principal)
CPT/HCPCS: 36415; 80048; 82306; 83735; 83970; 84100; 84550; 85025

== ENCOUNTER → 2022-10-16 07:32 | Outpatient (CLI) | payer MEDICARE, OTHER, SELFPAY ==
[2020-11-09 13:02] VITALS: BMI 42.8
[2022-10-16 08:26] LABS: Albumin 3.9 g/dL (3.5-5.0); BUN Creatinine Ratio 19.5 (6-22); Blood Urea Nitrogen 38 mg/dL (7-17); Calcium 9.3 mg/dL (8.4-10.2); Carbon Dioxide 23 mmol/L (22-32); Chloride 107 mmol/L (98-107); Estimated Glomerular Filt Rate 24 mL/min (>60); Glucose 116 mg/dL (80-110); HEMOLYSIS < 15 (0-50); Potassium 4.8 mmol/L (3.4-5.1); Sodium 140 mmol/L (137-145)
== END ==
PROVIDERS: PCP Family Medicine; Referring Provider Internal Medicine Nephrology; Visit Provider Internal Medicine Nephrology
DX: N18.4 Chronic kidney disease, stage 4 (severe) (principal)
CPT/HCPCS: 36415; 80048; 82040; 83735

== ENCOUNTER → 2022-11-20 10:40 | Outpatient (CLI) | payer MEDICARE, OTHER, SELFPAY ==
[2020-11-09 13:02] VITALS: BMI 42.8
[2022-11-20 11:32] LABS: Add Manual Diff / Slide Review NO; Basophils Absolute Auto 100 /uL (0-100); Basophils Percent Auto 0.8 % (0-2); Eosinophils Absolute Auto 400 /uL (0-450); Eosinophils Percent Auto 4.9 % (2-4); Hematocrit 38.7 % (36-46); Hemoglobin 12.8 g/dL (12.0-16.0); Lymphocytes Absolute Auto 1200 /uL (1100-4500); Monocytes Absolute Auto 700 /uL (0-900); Monocytes Percent Auto 9.9 % (3-14); Neutrophils Absolute Auto 4900 /uL (1500-7000); Neutrophils Percent Auto 68.4 % (50-75); Platelet Count 226 X10^3/uL (150-400); Red Blood Cell Count 4.25 X10^6/uL (4.0-5.2); Red Cell Distribution Width 15.6 % (11.6-14.8); White Blood Cell Count 7.2 X10^3/uL (4.5-11.0)
[2022-11-20 11:53] LABS: BUN Creatinine Ratio 18.8 (6-22); Blood Urea Nitrogen 37 mg/dL (7-17); Calcium 9.8 mg/dL (8.4-10.2); Carbon Dioxide 24 mmol/L (22-32); Chloride 108 mmol/L (98-107); Estimated Glomerular Filt Rate 24 mL/min (>60); Glucose 86 mg/dL (80-110); HEMOLYSIS < 15 (0-50); Phosphorous 3.9 mg/dL (2.8-4.1); Sodium 141 mmol/L (137-145)
[2022-11-20 12:16] LABS: Vitamin D 25 Hydroxy (D3) 54.6 ng/mL (30.0-100.0)
[2022-11-22 06:36] LABS: Parathyroid Hormone Int 72 pg/mL (15-65)
== END ==
PROVIDERS: PCP Family Medicine; Referring Provider Internal Medicine Nephrology; Visit Provider Internal Medicine Nephrology
DX: N18.4 Chronic kidney disease, stage 4 (severe) (principal)
CPT/HCPCS: 36415; 80048; 82040; 82306; 83970; 84100; 85025

== ENCOUNTER → 2022-11-22 10:50 | Outpatient (CLI) | payer MEDICARE, OTHER, SELFPAY ==
[2020-11-09 13:02] VITALS: BMI 42.8
--- NOTE | 2022-11-22 | DI.MG.S_ITS ---
BILATERAL DIGITAL SCREENING MAMMOGRAM 3D/2D WITH CAD: 11/22/2022 CLINICAL: Routine screening. Comparison is made to exams dated: 09/27/2021 mammogram, 09/09/2018 mammogram, and 08/30/2017 mammogram - [facility]. There are scattered areas of fibroglandular density in both breasts (category b / 25%-50% glandular tissue). Current study was also evaluated with a Computer Aided Detection (CAD) system. There are benign calcifications in both breasts. There also are benign vascular calcifications in both breasts. No significant masses, calcifications, or other findings are seen in either breast. There has been no significant interval change. IMPRESSION: BENIGN There is no mammographic evidence of malignancy. A 1 year screening mammogram is recommended. This exam was interpreted at Station ID: [id number]. NOTE: For mammograms, a report in lay terms will be sent to the patient. Approximately 15% of breast malignancies will not be visualized mammographically. In the management of a palpable breast mass, a negative mammogram must not discourage biopsy of a clinically suspicious lesion. Electronically Signed By: Odilon rodriguez/venus:11/22/2022 14:11:35 letter sent: Normal Exam ACR BI-RADS Category 2: Benign Finding(s) 3342F
== END ==
PROVIDERS: PCP Family Medicine; Referring Provider Family Medicine; Visit Provider Family Medicine
DX: Z12.31 Encounter for screening mammogram for malignant neoplasm of breast (principal)
CPT/HCPCS: 77063; 77067

== ENCOUNTER → 2023-02-09 14:39 | Outpatient (CLI) | payer MEDICARE, OTHER, SELFPAY ==
[2020-11-09 13:02] VITALS: BMI 42.8
[2023-02-09 17:55] LABS: BUN Creatinine Ratio 20.8 (6-22); Blood Urea Nitrogen 44 mg/dL (7-17); Calcium 9.8 mg/dL (8.4-10.2); Carbon Dioxide 23 mmol/L (22-32); Chloride 107 mmol/L (98-107); Estimated Glomerular Filt Rate 22 mL/min (>60); Glucose 87 mg/dL (80-110); HEMOLYSIS < 15 (0-50); Phosphorous 3.9 mg/dL (2.8-4.1); Potassium 4.9 mmol/L (3.4-5.1); Sodium 141 mmol/L (137-145); Uric Acid 6.9 mg/dL (2.5-6.2)
[2023-02-09 17:59] LABS: Vitamin D 25 Hydroxy (D3) 56.2 ng/mL (30.0-100.0)
== END ==
PROVIDERS: PCP Family Medicine; Referring Provider Internal Medicine Nephrology; Visit Provider Internal Medicine Nephrology
DX: N18.4 Chronic kidney disease, stage 4 (severe) (principal)
CPT/HCPCS: 36415; 80048; 82306; 84100; 84550

== ENCOUNTER 2023-06-14 15:47 | Emergency (ER) | payer MEDICARE, OTHER, SELFPAY ==
[2020-11-09 13:02] VITALS: BMI 42.8
[2023-06-14] VITALS (29 sets, daily range): BP systolic 135–210; BP diastolic 60–93; PULSE 68–105; RESP 15–24; TEMP 36.3; O2SAT 94–100; BMI 47.6
[2023-06-14 16:24] LABS: Add Manual Diff / Slide Review NO; Basophils Absolute Auto 100 /uL (0-100); Basophils Percent Auto 0.8 % (0-2); Eosinophils Absolute Auto 100 /uL (0-450); Eosinophils Percent Auto 0.7 % (2-4); Hematocrit 33.3 % (36-46); Hemoglobin 10.7 g/dL (12.0-16.0); Lymphocytes Absolute Auto 1000 /uL (1100-4500); Lymphocytes Percent Auto 7.2 % (25-40); Mean Corpuscular HGB Conc 32.2 % (30-36); Mean Corpuscular Hemoglobin 29.6 PG (26-34); Mean Corpuscular Volume 91.8 fL (80-100); Monocytes Absolute Auto 1500 /uL (0-900); Monocytes Percent Auto 10.9 % (3-14); Neutrophils Absolute Auto 11000 /uL (1500-7000); Neutrophils Percent Auto 80.4 % (50-75); Platelet Count 269 X10^3/uL (150-400); Red Blood Cell Count 3.63 X10^6/uL (4.0-5.2); Red Cell Distribution Width 14.3 % (11.6-14.8); White Blood Cell Count 13.6 X10^3/uL (4.5-11.0)
[2023-06-14 16:30] LABS: Alanine Aminotransferase 19 IU/L (<35); Albumin 3.8 g/dL (3.5-5.0); Albumin Globulin Ratio 1.1 (1.0-2.8); Alkaline Phosphatase 114 U/L (38-126); Aspartate Aminotransferase 25 IU/L (14-36); BUN Creatinine Ratio 16.2 (6-22); Bilirubin Total 0.5 mg/dL (0.2-1.3); Blood Urea Nitrogen 47 mg/dL (7-17); Calcium 9.4 mg/dL (8.4-10.2); Carbon Dioxide 23 mmol/L (22-32); Chloride 105 mmol/L (98-107); Estimated Glomerular Filt Rate 15 mL/min (>60); Globulin 3.4 g/dL (1.7-4.1); Glucose 153 mg/dL (80-110); HEMOLYSIS < 15 (0-50); Lipase 81 U/L (23-300); Potassium 4.7 mmol/L (3.4-5.1); Sodium 135 mmol/L (137-145); Total Protein 7.2 g/dL (6.3-8.2)
--- NOTE | 2023-06-14 17:13 | ED_ITS ---
HPI - Abdominal Pain <Solange Bustos DO - Last Filed: 06/16/23 07:56> General Chief Complaint: Abdominal Pain Stated Complaint: abd pain, mental status changes, nephrostomy tube Time Seen by Provider: 06/14/23 17:11 Source: patient and other Mode of arrival: Ambulatory History of Present Illness HPI narrative: This is an 87-year-old with history of acute on chronic kidney disease stage 4, obstructive uropathy with bilateral nephrostomy tube, diabetes type 2, paroxysmal AFib, hypertension, dyslipidemia, hypothyroidism, MORGAN who presents with complaint of abdominal pain that has been going on for about a month, patient has had issues on and off daily she sometimes can get comfortable but states it never totally goes away. She was finally convinced by her caregiver to come to the department. She has not had fevers no chest pain no new shortness of breath but does get quite fatigued when she ambulates. She has had some nausea and dry heaves today but has had this on and off for the past month 2 or 3 times. She has been having bowel movements but smaller amounts but soft. They usually give laxatives to help. Her nephrostomy tubes has been in place for 2 or 3 years, they change the catheters monthly. They have not noticed any blockages or color changes to the urine or cloudy sedimentation. Her caregiver noticed she seemed to be altered thought she was carving ham when she was not yesterday. She does not appear to have had any mental status changes today patient states she had back surgery 10 or 15 years ago with some complications and chronic back pain afterwards, has had bilateral nephrostomy tubes placed by [facility]. Has allergy to amphotericin B. No tobacco, no alcohol, no recreational drugs. Dr. Joshi is her primary care physician, Dr. Richmond is her employee benefits manager at [facility] and Dr. Velásquez is her urologist at [facility]. Related Data Home Medications Medication Instructions Recorded Confirmed aspirin 81 mg chewable tablet 81 mg PO QDAY ##0 01/31/16 06/15/23 citalopram 10 mg tablet 10 mg PO QDAY ##0 01/31/16 06/15/23 gabapentin 300 mg capsule 300 mg PO TID ##0 01/31/16 06/15/23 (Neurontin) levothyroxine 100 mcg tablet 100 mcg PO QAM ##0 01/31/16 06/15/23 metoprolol succinate 50 mg 50 mg PO DAILY 08/04/19 06/15/23 tablet,extended release 24 hr triamcinolone acetonide 0.1 % 1 applic topical PRN PRN rash 09/05/20 11/10/20 topical cream L.acidophilus-L.bulgar-B.bifid-S.thermoph 2 tab PO DAILY 06/15/23 06/15/23 1 billion cell-250 mg tablet Previous Rx's Medication Instructions Recorded tramadol 50 mg tablet 50 mg PO Q6H PRN pain #10 tabs 09/06/20 ospemifene 60 mg tablet (Osphena) See Rx Instructions .Route 10/18/20 .COMPLEX #90 tabs sodium chloride 0.9 % (flush) (BD 5 ml intra-catheter Q12H Flush 11/10/20 PosiFlush Normal Saline 0.9 % each nephrostomy tube with 5 ml injection syringe) twice daily #1,000 mL y-site line connector, closed #1 ea 11/10/20 Allergies Allergy/AdvReac Type Severity Reaction Status Date / Time alcohol Allergy Severe Rash, Verified 11/10/20 11:17 facial swelling amphotericin B AdvReac Severe Jittery, Verified 11/10/20 11:17 [AMPHOTERICIN B] tremors Review of Systems <Solange Bustos DO - Last Filed: 06/16/23 07:56> Review of Systems ROS Unobtainable: All systems reviewed & are unremarkable except as noted in HPI and below Patient History <Solange Bustos DO - Last Filed: 06/16/23 07:56> Medical History Noncompliant neurogenic bladder Urinary incontinence, mixed Nephrolithiasis Postmenopausal atrophic vaginitis Ureteral obstruction, left MORGAN on CPAP Obstructive uropathy History of recurrent UTI (urinary tract infection) Gross hematuria Pneumothorax Peptic ulcer disease Depression Anxiety GI bleed Calculus of kidney HTN (hypertension) Hypothyroid Surgical History History of thyroidectomy Nephrostomy status Hx of cystoscopy (08/04/19) H/O mastectomy History of hip replacement H/O gastric bypass History of back surgery Hx of bilateral cataract extraction (2013) Family History Father Seizures Mother Heart disease Diabetes mellitus Brother No significant medical problems Sister Diabetes mellitus Grandmother Diabetes mellitus Social History household members: spouse Smoking Status: Never smoker alcohol intake: never eating out: rarely or never Type(s) of exercise: none Smoking Status: Never smoker alcohol intake frequency: other Substance Use Type: does not use Exam <Solange Bustos DO - Last Filed: 06/16/23 07:56> Narrative Exam Narrative: GENERAL: Alert and oriented x three, obese elderly female in mild distress. HEENT: Head normocephalic, atraumatic, EOMI, pupils reactive, face symmetric, moist mucous membranes NECK: Supple, full range of motion CARDIOVASCULAR: Regular rate and rhythm without murmurs, rubs or gallops. RESPIRATORY: Breath sounds equal bilaterally, no wheezes rales or rhonchi. ABDOMEN: Soft, nontender. Normoactive bowel sounds all 4 quadrants. No guarding or rebound, rigidity, no mass : No CVA tenderness, patient's nephrostomy tubes appear in place bilaterally no obvious drainage. EXTREMITIES: Normal range of motion, no clubbing or edema. Neurovascularly intact NEUROLOGICAL: Cranial nerves II through XII grossly intact. Moving all extremities SKIN: Warm, dry, no petechiae, no rashes or lesions. Initial Vital Signs Initial Vital Signs: Vital Signs Temperature 97.3 F L 06/14/23 15:50 Pulse Rate 87 06/14/23 15:50 Respiratory Rate 16 06/14/23 15:50 Blood Pressure 189/76 H 06/14/23 15:50 Pulse Oximetry 100 06/14/23 15:50 Oxygen Delivery Method Room Air 06/14/23 15:50 <Rosales Veronica DO - Last Filed: 06/20/23 06:56> Initial Vital Signs Initial Vital Signs: Vital Signs Temperature 97.3 F L 06/14/23 15:50 Pulse Rate 87 06/14/23 15:50 Respiratory Rate 16 06/14/23 15:50 Blood Pressure 189/76 H 06/14/23 15:50 Pulse Oximetry 100 06/14/23 15:50 Oxygen Delivery Method Room Air 06/14/23 15:50 <Marina Monsivais, DO - Last Filed: 06/15/23 19:18> Initial Vital Signs Initial Vital Signs: Vital Signs Temperature 97.3 F L 06/14/23 15:50 Pulse Rate 87 06/14/23 15:50 Respiratory Rate 16 06/14/23 15:50 Blood Pressure 189/76 H 06/14/23 15:50 Pulse Oximetry 100 06/14/23 15:50 Oxygen Delivery Method Room Air 06/14/23 15:50 Course <Solange Bustos, DO - Last Filed: 06/16/23 07:56> Orders Ordered: Discontinued Medications Acetaminophen (Acetaminophen 325 Mg Tablet) 650 mg PO NOW ONE Stop: 06/14/23 19:11 Last Admin: 06/14/23 19:29 Dose: 650 mg Documented By: TESS Acetaminophen (Acetaminophen 325 Mg Tablet) 650 mg PO Q6H PRN PRN Reason: Fever/Mild Pain (1-3) Last Admin: 06/15/23 09:15 Dose: 650 mg Documented By: NISHI Gabapentin (Gabapentin 300 Mg Capsule) 300 mg PO TID [facility] Last Admin: 06/15/23 15:41 Dose: 300 mg Documented By: Admin: 06/15/23 09:07 Dose: 300 mg Documented By: NISHI Ceftriaxone Sodium 2,000 mg/ (Sodium Chloride) 100 mls @ 200 mls/hr IV NOW ONE Stop: 06/14/23 17:50 Last Infusion: 06/14/23 18:52 Dose: Infused Documented By: Admin: 06/14/23 18:03 Dose: 200 mls/hr Documented By: WARREN Ceftriaxone Sodium 2,000 mg/ (Sodium Chloride) 100 mls @ 200 mls/hr IV DAILY [facility] Last Infusion: 06/15/23 10:06 Dose: Infused Documented By: Admin: 06/15/23 09:00 Dose: 200 mls/hr Documented By: NISHI Levothyroxine Sodium (Levothyroxine 100 Mcg Tablet) 100 mcg PO DAILY@0600 [facility] Last Admin: 06/15/23 09:54 Dose: 100 mcg Documented By: BISHNU Metoprolol Succinate (Metoprolol Er 50 Mg Tablet) 50 mg PO DAILY [facility] Last Admin: 06/15/23 09:54 Dose: 50 mg Documented By: BISHNU Ondansetron HCl (Ondansetron 4 Mg Odt) 4 mg PO NOW PRN PRN Reason: Nausea And Vomiting Ondansetron HCl (Ondansetron 4 Mg/2 Ml Inj) 4 mg IV NOW PRN PRN Reason: Nausea And Vomiting Last Admin: 06/15/23 17:27 Dose: 4 mg Documented By: NISHI Tramadol HCl (Tramadol 50 Mg Tablet) 50 mg PO NOW ONE Stop: 06/14/23 17:30 Last Admin: 06/14/23 17:50 Dose: 50 mg Documented By: WARREN Tramadol HCl (Tramadol 50 Mg Tablet) 50 mg PO Q6H PRN PRN Reason: Pain, Moderate (4-6) Last Admin: 06/15/23 15:41 Dose: 50 mg Documented By: Admin: 06/15/23 09:07 Dose: 50 mg Documented By: NISHI Vital Signs Vital signs: Vital Signs - 8 hr 06/15/23 11:30 06/15/23 12:38 06/15/23 13:00 Pulse Rate 87 80 73 Respiratory Rate 20 29 H Blood Pressure Pulse Oximetry 96 Oxygen Delivery Method 06/15/23 13:30 06/15/23 14:00 06/15/23 14:30 Pulse Rate 72 69 72 Respiratory Rate 23 24 Blood Pressure Pulse Oximetry Oxygen Delivery Method 06/15/23 14:57 06/15/23 14:57 06/15/23 15:00 Pulse Rate 73 75 Respiratory Rate 26 H 25 H Blood Pressure 120/66 Pulse Oximetry 95 94 Oxygen Delivery Method Room Air 06/15/23 15:30 06/15/23 16:00 06/15/23 16:30 Pulse Rate 73 69 69 Respiratory Rate 27 H 21 Blood Pressure Pulse Oximetry 95 Oxygen Delivery Method Room Air 06/15/23 17:00 06/15/23 17:30 06/15/23 18:00 Pulse Rate 69 72 73 Respiratory Rate Blood Pressure Pulse Oximetry 95 Oxygen Delivery Method 06/15/23 18:30 Pulse Rate 73 Respiratory Rate 26 H Blood Pressure Pulse Oximetry 95 Oxygen Delivery Method Room Air <Rosales Veronica DO - Last Filed: 06/20/23 06:56> Orders Ordered: Discontinued Medications Acetaminophen (Acetaminophen 325 Mg Tablet) 650 mg PO NOW ONE Stop: 06/14/23 19:11 Last Admin: 06/14/23 19:29 Dose: 650 mg Documented By: TESS Acetaminophen (Acetaminophen 325 Mg Tablet) 650 mg PO Q6H PRN PRN Reason: Fever/Mild Pain (1-3) Last Admin: 06/15/23 09:15 Dose: 650 mg Documented By: NISHI Gabapentin (Gabapentin 300 Mg Capsule) 300 mg PO TID [facility] Last Admin: 06/15/23 15:41 Dose: 300 mg Documented By: Admin: 06/15/23 09:07 Dose: 300 mg Documented By: NISHI Ceftriaxone Sodium 2,000 mg/ (Sodium Chloride) 100 mls @ 200 mls/hr IV NOW ONE Stop: 06/14/23 17:50 Last Infusion: 06/14/23 18:52 Dose: Infused Documented By: Admin: 06/14/23 18:03 Dose: 200 mls/hr Documented By: WARREN Ceftriaxone Sodium 2,000 mg/ (Sodium Chloride) 100 mls @ 200 mls/hr IV DAILY [facility] Last Infusion: 06/15/23 10:06 Dose: Infused Documented By: Admin: 06/15/23 09:00 Dose: 200 mls/hr Documented By: NISHI Levothyroxine Sodium (Levothyroxine 100 Mcg Tablet) 100 mcg PO DAILY@0600 [facility] Last Admin: 06/15/23 09:54 Dose: 100 mcg Documented By: BISHNU Metoprolol Succinate (Metoprolol Er 50 Mg Tablet) 50 mg PO DAILY [facility] Last Admin: 06/15/23 09:54 Dose: 50 mg Documented By: BISHNU Ondansetron HCl (Ondansetron 4 Mg Odt) 4 mg PO NOW PRN PRN Reason: Nausea And Vomiting Ondansetron HCl (Ondansetron 4 Mg/2 Ml Inj) 4 mg IV NOW PRN PRN Reason: Nausea And Vomiting Last Admin: 06/15/23 17:27 Dose: 4 mg Documented By: NISHI Tramadol HCl (Tramadol 50 Mg Tablet) 50 mg PO NOW ONE Stop: 06/14/23 17:30 Last Admin: 06/14/23 17:50 Dose: 50 mg Documented By: WARREN Tramadol HCl (Tramadol 50 Mg Tablet) 50 mg PO Q6H PRN PRN Reason: Pain, Moderate (4-6) Last Admin: 06/15/23 15:41 Dose: 50 mg Documented By: Admin: 06/15/23 09:07 Dose: 50 mg Documented By: NISHI Vital Signs Vital signs: Vital Signs - 8 hr 06/15/23 11:30 06/15/23 12:38 06/15/23 13:00 Pulse Rate 87 80 73 Respiratory Rate 20 29 H Blood Pressure Pulse Oximetry 96 Oxygen Delivery Method 06/15/23 13:30 06/15/23 14:00 06/15/23 14:30 Pulse Rate 72 69 72 Respiratory Rate 23 24 Blood Pressure Pulse Oximetry Oxygen Delivery Method 06/15/23 14:57 06/15/23 14:57 06/15/23 15:00 Pulse Rate 73 75 Respiratory Rate 26 H 25 H Blood Pressure 120/66 Pulse Oximetry 95 94 Oxygen Delivery Method Room Air 06/15/23 15:30 06/15/23 16:00 06/15/23 16:30 Pulse Rate 73 69 69 Respiratory Rate 27 H 21 Blood Pressure Pulse Oximetry 95 Oxygen Delivery Method Room Air 06/15/23 17:00 06/15/23 17:30 06/15/23 18:00 Pulse Rate 69 72 73 Respiratory Rate Blood Pressure Pulse Oximetry 95 Oxygen Delivery Method 06/15/23 18:30 Pulse Rate 73 Respiratory Rate 26 H Blood Pressure Pulse Oximetry 95 Oxygen Delivery Method Room Air <Marina Monsivais DO - Last Filed: 06/15/23 19:18> Orders Ordered: Discontinued Medications Acetaminophen (Acetaminophen 325 Mg Tablet) 650 mg PO NOW ONE Stop: 06/14/23 19:11 Last Admin: 06/14/23 19:29 Dose: 650 mg Documented By: TESS Acetaminophen (Acetaminophen 325 Mg Tablet) 650 mg PO Q6H PRN PRN Reason: Fever/Mild Pain (1-3) Last Admin: 06/15/23 09:15 Dose: 650 mg Documented By: NISHI Gabapentin (Gabapentin 300 Mg Capsule) 300 mg PO TID [facility] Last Admin: 06/15/23 15:41 Dose: 300 mg Documented By: Admin: 06/15/23 09:07 Dose: 300 mg Documented By: NISHI Ceftriaxone Sodium 2,000 mg/ (Sodium Chloride) 100 mls @ 200 mls/hr IV NOW ONE Stop: 06/14/23 17:50 Last Infusion: 06/14/23 18:52 Dose: Infused Documented By: Admin: 06/14/23 18:03 Dose: 200 mls/hr Documented By: WARREN Ceftriaxone Sodium 2,000 mg/ (Sodium Chloride) 100 mls @ 200 mls/hr IV DAILY [facility] Last Infusion: 06/15/23 10:06 Dose: Infused Documented By: Admin: 06/15/23 09:00 Dose: 200 mls/hr Documented By: NISHI Levothyroxine Sodium (Levothyroxine 100 Mcg Tablet) 100 mcg PO DAILY@0600 [facility] Last Admin: 06/15/23 09:54 Dose: 100 mcg Documented By: BISHNU Metoprolol Succinate (Metoprolol Er 50 Mg Tablet) 50 mg PO DAILY [facility] Last Admin: 06/15/23 09:54 Dose: 50 mg Documented By: BISHNU Ondansetron HCl (Ondansetron 4 Mg Odt) 4 mg PO NOW PRN PRN Reason: Nausea And Vomiting Ondansetron HCl (Ondansetron 4 Mg/2 Ml Inj) 4 mg IV NOW PRN PRN Reason: Nausea And Vomiting Last Admin: 06/15/23 17:27 Dose: 4 mg Documented By: NISHI Tramadol HCl (Tramadol 50 Mg Tablet) 50 mg PO NOW ONE Stop: 06/14/23 17:30 Last Admin: 06/14/23 17:50 Dose: 50 mg Documented By: WARREN Tramadol HCl (Tramadol 50 Mg Tablet) 50 mg PO Q6H PRN PRN Reason: Pain, Moderate (4-6) Last Admin: 06/15/23 15:41 Dose: 50 mg Documented By: Admin: 06/15/23 09:07 Dose: 50 mg Documented By: NISHI Vital Signs Vital signs: Vital Signs - 8 hr 06/15/23 11:30 06/15/23 12:38 06/15/23 13:00 Pulse Rate 87 80 73 Respiratory Rate 20 29 H Blood Pressure Pulse Oximetry 96 Oxygen Delivery Method 06/15/23 13:30 06/15/23 14:00 06/15/23 14:30 Pulse Rate 72 69 72 Respiratory Rate 23 24 Blood Pressure Pulse Oximetry Oxygen Delivery Method 06/15/23 14:57 06/15/23 14:57 06/15/23 15:00 Pulse Rate 73 75 Respiratory Rate 26 H 25 H Blood Pressure 120/66 Pulse Oximetry 95 94 Oxygen Delivery Method Room Air 06/15/23 15:30 06/15/23 16:00 06/15/23 16:30 Pulse Rate 73 69 69 Respiratory Rate 27 H 21 Blood Pressure Pulse Oximetry 95 Oxygen Delivery Method Room Air 04/12/24 17:00 06/15/23 17:30 06/15/23 18:00 Pulse Rate 69 72 73 Respiratory Rate Blood Pressure Pulse Oximetry 95 Oxygen Delivery Method 06/15/23 18:30 Pulse Rate 73 Respiratory Rate 26 H Blood Pressure Pulse Oximetry 95 Oxygen Delivery Method Room Air MDM - Abdominal Pain <Solange Bustos, DO - Last Filed: 06/16/23 07:56> Lab Data 06/15/23 08:20 06/15/23 08:20 Labs: Lab Results 06/14/23 06/14/23 06/15/23 Range/Units 16:10 17:16 08:20 WBC 13.6 H 13.2 H (4.5-11.0) X10^3/uL RBC 3.63 L 3.49 L (4.0-5.2) X10^6/uL Hgb 10.7 L 10.6 L (12.0-16.0) g/dL Hct 33.3 L 31.9 L (36-46) % MCV 91.8 91.4 (80-100) fL MCH 29.6 30.2 (26-34) PG MCHC 32.2 33.1 (30-36) % RDW 14.3 14.0 (11.6-14.8) % Plt Count 269 251 (150-400) X10^3/uL Neut % (Auto) 80.4 H 83.8 H (50-75) % Lymph % (Auto) 7.2 L 5.7 L (25-40) % [place] % (Auto) 10.9 9.5 (3-14) % Eos % (Auto) 0.7 L 0.8 L (2-4) % Baso % (Auto) 0.8 0.2 (0-2) % Neut # (Auto) 32832 H 15204 H (3658-6308) /uL Lymph # (Auto) 1000 L 800 L (1281-4097) /uL [place] # (Auto) 1500 H 1300 H (0-900) /uL Eos # (Auto) 100 100 (0-450) /uL Baso # (Auto) 100 0 (0-100) /uL Sodium 135 L 135 L (137-145) mmol/L Potassium 4.7 4.8 (3.4-5.1) mmol/L Chloride 105 104 (98-107) mmol/L Carbon Dioxide 23 22 (22-32) mmol/L BUN 47 H 51 H (7-17) mg/dL Creatinine 2.91 H 2.68 H (0.52-1.04) mg/dL Estimated GFR 15 L 17 L (>60) mL/min BUN/Creatinine Ratio 16.2 19.0 (6-22) Glucose 153 H 163 H (80-110) mg/dL Calcium 9.4 9.2 (8.4-10.2) mg/dL Total Bilirubin 0.5 0.4 (0.2-1.3) mg/dL AST 25 24 (14-36) IU/L ALT 19 19 (<35) IU/L Alkaline Phosphatase 114 115 (38-126) U/L Total Protein 7.2 7.3 (6.3-8.2) g/dL Albumin 3.8 3.7 (3.5-5.0) g/dL Globulin 3.4 3.6 (1.7-4.1) g/dL Albumin/Globulin Ratio 1.1 1.0 (1.0-2.8) Lipase 81 (23-300) U/L Urine Color Yellow Urine Appearance Cloudy Urine pH 5.0 (4.5-8.0) Ur Specific Shirley 1.025 (1.000-1.035) Urine Protein 2+ H (Negative) Urine Glucose (UA) Negative (Negative) g/dL Urine Ketones Negative (NEGATIVE) Urine Occult Blood 3+ H (Negative) Urine Nitrate Positive H (Negative) Urine Bilirubin Negative (NEGATIVE) Urine Urobilinogen 0.2 (0.2) E.U./dL Ur Leukocyte Esterase 2+ H (NEGATIVE) Urine RBC 10-30/hpf H (0-5/HPF) Urine WBC 30-100/hpf H (0-5/HPF) Ur Squamous Epith Cells 1-5 /hpf (0-5/HPF) Urine Bacteria Many (>30) H (None) Urine Mucus 1+ H (Negative) Ur Culture Indicated? Specimen cultured Vol Urine Centrifuged Low vol <10ml (spun) A Point of care testing: Point of Care Testing Glucose POC 156 ECG Data Attestation: I personally reviewed and interpreted this ECG as follows: Prior ECG tracings: available for review Interpretation: Sinus rhythm rate of 74 NH 206 QRS 84 QTC 455. Nonspecific change. Patient has prior from 09/05/2020. MDM Narrative Medical decision making narrative: 87-year-old female with complaint of acute on chronic abdominal pain for at least the past month if not longer, waxes and wanes throughout the day. Patient has had some nausea and dry heaves today occasionally in the past, she has been having bowel movements but does have small amounts. Has bilateral nephrostomy tubes which PRN place no signs of blockage appears to be draining yellow urine. They do note that she thought she was carving hammer earlier yesterday when she was not. No fevers appears nontoxic does not appear septic. Patient requested her regular pain medication when she takes it this time a 50 mg tramadol. Labs show white count of 13.6 hemoglobin of 10 platelets of 269 glucose is 153 creatinine is 2.91, prior have for here is 2.12 from February 2023 none in the interim are available. BUN 47 with sodium 135 potassium of 4 7 chloride of 105 and CO2 23. LFTs are negative. Urine shows 2+ protein, 3+ blood, positive for nitrates, 2+ leuks, 10-30 RBCs with 3200 white cells, many bacteria suspicious for infection. With patient's abdominal pain and description of change in mental status yesterday patient had dose of Rocephin given here in the department. Plan for CT KUB with complaint of abdominal pain with bilateral nephrostomy tubes and increasing creatinine and February. Patient signed out to Dr. Veronica while awaiting CT KUB. <Rosales Veronica, DO - Last Filed: 06/20/23 06:56> Lab Data Attestation: I reviewed the patient's lab results. Labs: Lab Results 06/14/23 06/14/23 06/15/23 Range/Units 16:10 17:16 08:20 WBC 13.6 H 13.2 H (4.5-11.0) X10^3/uL RBC 3.63 L 3.49 L (4.0-5.2) X10^6/uL Hgb 10.7 L 10.6 L (12.0-16.0) g/dL Hct 33.3 L 31.9 L (36-46) % MCV 91.8 91.4 (80-100) fL MCH 29.6 30.2 (26-34) PG MCHC 32.2 33.1 (30-36) % RDW 14.3 14.0 (11.6-14.8) % Plt Count 269 251 (150-400) X10^3/uL Neut % (Auto) 80.4 H 83.8 H (50-75) % Lymph % (Auto) 7.2 L 5.7 L (25-40) % [place] % (Auto) 10.9 9.5 (3-14) % Eos % (Auto) 0.7 L 0.8 L (2-4) % Baso % (Auto) 0.8 0.2 (0-2) % Neut # (Auto) 32467 H 02366 H (0149-5119) /uL Lymph # (Auto) 1000 L 800 L (4358-8221) /uL [place] # (Auto) 1500 H 1300 H (0-900) /uL Eos # (Auto) 100 100 (0-450) /uL Baso # (Auto) 100 0 (0-100) /uL Sodium 135 L 135 L (137-145) mmol/L Potassium 4.7 4.8 (3.4-5.1) mmol/L Chloride 105 104 (98-107) mmol/L Carbon Dioxide 23 22 (22-32) mmol/L BUN 47 H 51 H (7-17) mg/dL Creatinine 2.91 H 2.68 H (0.52-1.04) mg/dL Estimated GFR 15 L 17 L (>60) mL/min BUN/Creatinine Ratio 16.2 19.0 (6-22) Glucose 153 H 163 H (80-110) mg/dL Calcium 9.4 9.2 (8.4-10.2) mg/dL Total Bilirubin 0.5 0.4 (0.2-1.3) mg/dL AST 25 24 (14-36) IU/L ALT 19 19 (<35) IU/L Alkaline Phosphatase 114 115 (38-126) U/L Total Protein 7.2 7.3 (6.3-8.2) g/dL Albumin 3.8 3.7 (3.5-5.0) g/dL Globulin 3.4 3.6 (1.7-4.1) g/dL Albumin/Globulin Ratio 1.1 1.0 (1.0-2.8) Lipase 81 (23-300) U/L Urine Color Yellow Urine Appearance Cloudy Urine pH 5.0 (4.5-8.0) Ur Specific Shirley 1.025 (1.000-1.035) Urine Protein 2+ H (Negative) Urine Glucose (UA) Negative (Negative) g/dL Urine Ketones Negative (NEGATIVE) Urine Occult Blood 3+ H (Negative) Urine Nitrate Positive H (Negative) Urine Bilirubin Negative (NEGATIVE) Urine Urobilinogen 0.2 (0.2) E.U./dL Ur Leukocyte Esterase 2+ H (NEGATIVE) Urine RBC 10-30/hpf H (0-5/HPF) Urine WBC 30-100/hpf H (0-5/HPF) Ur Squamous Epith Cells 1-5 /hpf (0-5/HPF) Urine Bacteria Many (>30) H (None) Urine Mucus 1+ H (Negative) Ur Culture Indicated? Specimen cultured Vol Urine Centrifuged Low vol <10ml (spun) A Point of care testing: Point of Care Testing Glucose POC [address] scan - abdomen/pelvis: Radiologist's Impression: PROCEDURE: CT KIDNEY URETER BLADDER (KUB) INDICATIONS: abd pain acute on chronic, hx nephrostomy tubes b/l TECHNIQUE: Axial sections were acquired from the lung bases to the pubic symphysis. Coronal and sagittal reformats were performed. For radiation dose reduction, the following was used: automated exposure control, adjustment of mA and/or kV according to patient size. COMPARISON: [facility], CT, CT KUB, 08/16/2022, 12:57. [facility], CT, CT KIDNEY URETER BLADDER (KUB), 10/23/2020, 12:59. FINDINGS: Image quality: Diagnostic. Lower Chest: Mild coronary artery calcifications. Trace pericardial effusion. Small hiatal hernia. URINARY: Right Kidney: Moderate to severe hydronephrosis. Nephrostomy tube is been retracted with tip terminating at the renal cortex. Perinephric stranding. Right Ureter: Moderate to severe hydroureter. Left Kidney: Nephrostomy tube in place. No hydronephrosis. Lobulated appearance of the kidney. Left Ureter: No hydroureter. Bladder: Decompressed, limiting evaluation. No stones. ABDOMEN: Liver: No contour-deforming solid mass. Gallbladder: Cholelithiasis without wall thickening or inflammation. Biliary ducts: No biliary dilation. Pancreas: No ductal dilation. Spleen: Size is within normal limits. Adrenal Glands: No adrenal nodules. Stomach and Bowel: Normal colonic caliber, without significant wall thickening. Diverticulosis without evidence of acute diverticulitis. Peritoneum: No abnormal intraperitoneal fluid. No free air. Ventral Wall: No hernia. Abdominal Nodes: No enlarged retroperitoneal or mesenteric lymph nodes. Vessels: Aorta and inferior vena cava are normal in size. Atherosclerotic vascular calcifications. PELVIS: Pelvic Organs: Unremarkable. Pelvic Nodes: Unremarkable. Miscellaneous: No inguinal hernias are seen. Bones: Left hip arthroplasty. Degenerative changes of the spine. Decreased osseous mineralization. Levo scoliotic curvature. IMPRESSION: 1. Interval retraction of the right nephrostomy tube terminating at the renal cortex with moderate to severe right hydronephrosis and perinephric stranding. Moderate right hydroureter. No obstructing stone is seen. 2. Left nephrostomy tube in appropriate position. No hydronephrosis. 3. Diverticulosis evidence of acute diverticulitis. 4. Cholelithiasis without evidence of acute cholecystitis. MDM Narrative Medical decision making narrative: 87-year-old female with complaint of acute on chronic abdominal pain for at least the past month if not longer, waxes and wanes throughout the day. Patient has had some nausea and dry heaves today occasionally in the past, she has been having bowel movements but does have small amounts. Has bilateral nephrostomy tubes which PRN place no signs of blockage appears to be draining yellow urine. They do note that she thought she was carving hammer earlier yesterday when she was not. No fevers appears nontoxic does not appear septic. Patient requested her regular pain medication when she takes it this time a 50 mg tramadol. Labs show white count of 13.6 hemoglobin of 10 platelets of 269 glucose is 153 creatinine is 2.91, prior have for here is 2.12 from February 2023 none in the interim are available. BUN 47 with sodium 135 potassium of 4 7 chloride of 105 and CO2 23. LFTs are negative. Urine shows 2+ protein, 3+ blood, positive for nitrates, 2+ leuks, 10-30 RBCs with 3200 white cells, many bacteria suspicious for infection. With patient's abdominal pain and description of change in mental status yesterday patient had dose of Rocephin given here in the department. Plan for CT KUB with complaint of abdominal pain with bilateral nephrostomy tubes and increasing creatinine and February. Patient signed out to Dr. Veronica while awaiting CT KUB. Patient does have what appears to be a urinary tract infection because of a nitrite positive urine. Her CT KUB shows that the right nephrostomy tube appears to have withdrawn into the renal cortex and there is hydro and stranding around this kidney. I did discuss the case with Dr. Velásquez he was the patient's urologist. He recommended transfer for interventional radiology to have an exchange done of the nephrostomy tube. He agreed with the antibiotics. Ideally patient will be transferred to [facility] as this is where she receives all of her care for her nephrology/urology. There are no beds available this evening but potentially in the morning. Patient has been stable. Plan will be to keep in the emergency department overnight with anticipation of transfer sometime tomorrow. Care turned over to day provider to observe until disposition can be met. <Marina Monsivais, - Last Filed: 06/15/23 19:18> Lab Data Labs: Lab Results 06/14/23 06/14/23 06/15/23 Range/Units 16:10 17:16 08:20 WBC 13.6 H 13.2 H (4.5-11.0) X10^3/uL RBC 3.63 L 3.49 L (4.0-5.2) X10^6/uL Hgb 10.7 L 10.6 L (12.0-16.0) g/dL Hct 33.3 L 31.9 L (36-46) % MCV 91.8 91.4 (80-100) fL MCH 29.6 30.2 (26-34) PG MCHC 32.2 33.1 (30-36) % RDW 14.3 14.0 (11.6-14.8) % Plt Count 269 251 (150-400) X10^3/uL Neut % (Auto) 80.4 H 83.8 H (50-75) % Lymph % (Auto) 7.2 L 5.7 L (25-40) % [place] % (Auto) 10.9 9.5 (3-14) % Eos % (Auto) 0.7 L 0.8 L (2-4) % Baso % (Auto) 0.8 0.2 (0-2) % Neut # (Auto) 82174 H 07714 H (6262-7545) /uL Lymph # (Auto) 1000 L 800 L (7332-6211) /uL [place] # (Auto) 1500 H 1300 H (0-900) /uL Eos # (Auto) 100 100 (0-450) /uL Baso # (Auto) 100 0 (0-100) /uL Sodium 135 L 135 L (137-145) mmol/L Potassium 4.7 4.8 (3.4-5.1) mmol/L Chloride 105 104 (98-107) mmol/L Carbon Dioxide 23 22 (22-32) mmol/L BUN 47 H 51 H (7-17) mg/dL Creatinine 2.91 H 2.68 H (0.52-1.04) mg/dL Estimated GFR 15 L 17 L (>60) mL/min BUN/Creatinine Ratio 16.2 19.0 (6-22) Glucose 153 H 163 H (80-110) mg/dL Calcium 9.4 9.2 (8.4-10.2) mg/dL Total Bilirubin 0.5 0.4 (0.2-1.3) mg/dL AST 25 24 (14-36) IU/L ALT 19 19 (<35) IU/L Alkaline Phosphatase 114 115 (38-126) U/L Total Protein 7.2 7.3 (6.3-8.2) g/dL Albumin 3.8 3.7 (3.5-5.0) g/dL Globulin 3.4 3.6 (1.7-4.1) g/dL Albumin/Globulin Ratio 1.1 1.0 (1.0-2.8) Lipase 81 (23-300) U/L Urine Color Yellow Urine Appearance Cloudy Urine pH 5.0 (4.5-8.0) Ur Specific Shirley 1.025 (1.000-1.035) Urine Protein 2+ H (Negative) Urine Glucose (UA) Negative (Negative) g/dL Urine Ketones Negative (NEGATIVE) Urine Occult Blood 3+ H (Negative) Urine Nitrate Positive H (Negative) Urine Bilirubin Negative (NEGATIVE) Urine Urobilinogen 0.2 (0.2) E.U./dL Ur Leukocyte Esterase 2+ H (NEGATIVE) Urine RBC 10-30/hpf H (0-5/HPF) Urine WBC 30-100/hpf H (0-5/HPF) Ur Squamous Epith Cells 1-5 /hpf (0-5/HPF) Urine Bacteria Many (>30) H (None) Urine Mucus 1+ H (Negative) Ur Culture Indicated? Specimen cultured Vol Urine Centrifuged Low vol <10ml (spun) A Point of care testing: Point of Care Testing Glucose POC 156 MDM Narrative Medical decision making narrative: 87-year-old female with complaint of acute on chronic abdominal pain for at least the past month if not longer, waxes and wanes throughout the day. Patient has had some nausea and dry heaves today occasionally in the past, she has been having bowel movements but does have small amounts. Has bilateral nephrostomy tubes which PRN place no signs of blockage appears to be draining yellow urine. They do note that she thought she was carving hammer earlier yesterday when she was not. No fevers appears nontoxic does not appear septic. Patient requested her regular pain medication when she takes it this time a 50 mg tramadol. Labs show white count of 13.6 hemoglobin of 10 platelets of 269 glucose is 153 creatinine is 2.91, prior have for here is 2.12 from February 2023 none in the interim are available. BUN 47 with sodium 135 potassium of 4 7 chloride of 105 and CO2 23. LFTs are negative. Urine shows 2+ protein, 3+ blood, positive for nitrates, 2+ leuks, 10-30 RBCs with 3200 white cells, many bacteria suspicious for infection. With patient's abdominal pain and description of change in mental status yesterday patient had dose of Rocephin given here in the department. Plan for CT KUB with complaint of abdominal pain with bilateral nephrostomy tubes and increasing creatinine and February. Patient signed out to Dr. Veronica while awaiting CT KUB. Patient does have what appears to be a urinary tract infection because of a nitrite positive urine. Her CT KUB shows that the right nephrostomy tube appears to have withdrawn into the renal cortex and there is hydro and stranding around this kidney. I did discuss the case with Dr. Velásquez he was the patient's urologist. He recommended transfer for interventional radiology to have an exchange done of the nephrostomy tube. He agreed with the antibiotics. Ideally patient will be transferred to [facility] as this is where she receives all of her care for her nephrology/urology. There are no beds available this evening but potentially in the morning. Patient has been stable. Plan will be to keep in the emergency department overnight with anticipation of transfer sometime tomorrow. Care turned over to day provider to observe until disposition can be met. Dr. Monsivais-patient seen evaluated by myself. Awake alert oriented eating breakfast. She reports that the right nephrostomy tube is leaking. She does have nitrite positive urine she was given 1 dose of Rocephin. Blood work from this morning has been reviewed she actually has persistent leukocytosis of 13 with improved creatinine from 2.9 to2.6. We have called [facility] numerous times awaiting for accepting physician and bed availability [id number]- Dr Meza, urology at [facility] updated on patient's symptoms test results reports that patient needs Interventional Radiology unfortunately [facility] does not have Interventional Radiology today were over the weekend. Recommends patient continue to get antibiotics and transferred to where IR is available. 1700 Dr. Peterson, IR at [facility] states that this is nonemergent she has not yet septic encourage is outpatient set up 1725 Dr. Rubio, urology Re consulted in regards to possible outpatient follow- up. [place] and a son who is disabled outpatient follow-up is a great plan. Concern that she may get septic over the weekend despite p.o. antibiotics 1800 Dr Brock, interventional radiologist kindly states that she will come in tomorrow to fix patient's nephrostomy tube. She was the 1 who replaced it previously. Patient will need to be admitted to hospitalist. 185 Dr mills accepts to [facility]. Dr. Brock aware patient's transfer recommends patient be NPO. Critical Care Time <Marina Monsivais, DO - Last Filed: 06/15/23 19:18> Critical Care Time Critical Care Time: Yes Total Critical Care Time: 45 Attestation: The high probability of a clinically significant, sudden or life threatening deterioration of the [cardiovascular] system(s) required my full and direct attention, intervention and personal management. The aggregate critical care time was [45] minutes. This time is in addition to time spent performing reported procedures but includes the following: [x] Data Review and interpretation [x] Patient assessment and monitoring of vital signs [x] Documentation [x] Medication orders and management Discharge Plan Departure Patient Disposition: [facility] Clinical Impression: UTI (urinary tract infection), Displacement of nephrostomy tube Prescriptions: No Action citalopram 10 MG tablet 10 mg PO QDAY Qty: 0 levothyroxine 100 MCG tablet 100 mcg PO QAM Qty: 0 aspirin 81 MG tablet,chewable 81 mg PO QDAY Qty: 0 gabapentin [Neurontin] 300 MG capsule 300 mg PO TID Qty: 0 O[place]hena 60 mg tablet See Rx Instructions .ROUTE .COMPLEX Qty: 90 0RF Dose Instruction: take 1 tablet by mouth once daily with food PREFERABLY A HIGH FAT MEAL Rx Instructions: take 1 tablet by mouth once daily with food PREFERABLY A HIGH FAT MEAL metoprolol succinate 50 mg tablet extended release 24 hr 50 mg PO DAILY triamcinolone acetonide 0.1 % cream 1 applic TOPICAL PRN PRN (Reason: rash) tramadol 50 mg tablet 50 mg PO Q6H PRN (Reason: pain) Qty: 10 0RF Bacid 1 billion cell- 250 mg tablet 2 tab PO DAILY sodium chloride 0.9 % (flush) [BD PosiFlush Normal Saline 0.9] Syringe 5 ml intra-catheter Q12H Qty: 1000 3RF (DME) y-site line connector, closed Misc See Rx Instructions .Route Qty: 1 0RF Rx Instructions: As directed Referrals: Sd Joshi MD [Primary Care Provider] -
[2023-06-14 17:26] LABS: Bilirubin Urine UA NEGATIVE (NEGATIVE); Color Urine UA YELLOW; Glucose Urine UA NEGATIVE (Negative); Ketones Urine UA NEGATIVE (NEGATIVE); Leukocyte Esterase Urine UA 2+ (NEGATIVE); Nitrite Urine UA POSITIVE (Negative); Occult Blood Urine UA 3+ (Negative); Protein Urine UA 2+ (Negative); Specific Gravity Urine UA 1.025 (1.000-1.035); Urobilinogen Urine UA 0.2 E.U./dL (0.2)
[2023-06-14 17:29] LABS: Appearance Urine UA CLOUDY; Urine Volume Low Vol <10mL (spun)
--- NOTE | 2023-06-14 17:29 | DI.CT.S_ITS ---
PROCEDURE: CT KIDNEY URETER BLADDER (KUB) INDICATIONS: abd pain acute on chronic, hx nephrostomy tubes b/l TECHNIQUE: Axial sections were acquired from the lung bases to the pubic symphysis. Coronal and sagittal reformats were performed. For radiation dose reduction, the following was used: automated exposure control, adjustment of mA and/or kV according to patient size. COMPARISON: [facility], CT, CT KUB, 08/16/2022, 12:57. [facility], CT, CT KIDNEY URETER BLADDER (KUB), 10/23/2020, 12:59. FINDINGS: Image quality: Diagnostic. Lower Chest: Mild coronary artery calcifications. Trace pericardial effusion. Small hiatal hernia. URINARY: Right Kidney: Moderate to severe hydronephrosis. Nephrostomy tube is been retracted with tip terminating at the renal cortex. Perinephric stranding. Right Ureter: Moderate to severe hydroureter. Left Kidney: Nephrostomy tube in place. No hydronephrosis. Lobulated appearance of the kidney. Left Ureter: No hydroureter. Bladder: Decompressed, limiting evaluation. No stones. ABDOMEN: Liver: No contour-deforming solid mass. Gallbladder: Cholelithiasis without wall thickening or inflammation. Biliary ducts: No biliary dilation. Pancreas: No ductal dilation. Spleen: Size is within normal limits. Adrenal Glands: No adrenal nodules. Stomach and Bowel: Normal colonic caliber, without significant wall thickening. Diverticulosis without evidence of acute diverticulitis. Peritoneum: No abnormal intraperitoneal fluid. No free air. Ventral Wall: No hernia. Abdominal Nodes: No enlarged retroperitoneal or mesenteric lymph nodes. Vessels: Aorta and inferior vena cava are normal in size. Atherosclerotic vascular calcifications. PELVIS: Pelvic Organs: Unremarkable. Pelvic Nodes: Unremarkable. Miscellaneous: No inguinal hernias are seen. Bones: Left hip arthroplasty. Degenerative changes of the spine. Decreased osseous mineralization. Levo scoliotic curvature. IMPRESSION: 1. Interval retraction of the right nephrostomy tube terminating at the renal cortex with moderate to severe right hydronephrosis and perinephric stranding. Moderate right hydroureter. No obstructing stone is seen. 2. Left nephrostomy tube in appropriate position. No hydronephrosis. 3. Diverticulosis evidence of acute diverticulitis. 4. Cholelithiasis without evidence of acute cholecystitis. Dictated by: Tristan Carter M.D. on 06/14/2023 at 17:59 Approved by: Tristan Carter M.D. on 06/14/2023 at 18:05
[2023-06-14 17:32] LABS: RBC Urine 10-30/HPF (0-5/HPF)
[2023-06-14 17:33] LABS: Bacteria Urine Many (>30); Culture Indicated Urine Specimen Cultured; Mucus Urine 1+ (Negative); Squamous Epithelial Cell Urine 1-5 /HPF (0-5/HPF); WBC Urine 30-100/HPF (0-5/HPF)
[2023-06-14] MEDS: TRAMADOL 50 MG TABLET PO (17:50)
[2023-06-14] MEDS: cefTRIAXone 2,000 MG in SODIUM CHLORIDE 0.9% 100 ML 200 MG IV (18:03)
[2023-06-14] MEDS: ACETAMINOPHEN 325 MG TABLET 650 MG PO (19:29)
--- NOTE | 2023-06-14 22:26 | PC.NURSE ---
Emptied nephrostomy tubes. Left side output 250ml. Right side output 25ml. Malodorous smell. Assessed insertion sites, no redness or drainage visible. Skin around insert sites is pink and dry, patient reports pain on both flanks when standing or moving, no pain when lying flat.
[2023-06-15] VITALS (47 sets, daily range): BP systolic 120–192; BP diastolic 66–96; PULSE 69–99; RESP 19–39; O2SAT 93–97
--- NOTE | 2023-06-15 06:30 | PC.NURSE ---
Patient called and states the sheets are all wet. This nurse notes large amount of urine soaked in bed sheets. Left side nephrostomy intact, with 550ml urine output in drainage bag. Right side nephrostomy insertion sight is wet and peeling with purulent drainage noted, foul odour. No urine in right side drainage bag. Total bed change and cleaned patient up. Patient now lying in bed comfortably, call light in reach.
[2023-06-15 08:27] LABS: Add Manual Diff / Slide Review NO; Basophils Absolute Auto 0 /uL (0-100); Basophils Percent Auto 0.2 % (0-2); Eosinophils Absolute Auto 100 /uL (0-450); Eosinophils Percent Auto 0.8 % (2-4); Hematocrit 31.9 % (36-46); Hemoglobin 10.6 g/dL (12.0-16.0); Lymphocytes Absolute Auto 800 /uL (1100-4500); Lymphocytes Percent Auto 5.7 % (25-40); Mean Corpuscular HGB Conc 33.1 % (30-36); Mean Corpuscular Hemoglobin 30.2 PG (26-34); Mean Corpuscular Volume 91.4 fL (80-100); Monocytes Absolute Auto 1300 /uL (0-900); Monocytes Percent Auto 9.5 % (3-14); Neutrophils Absolute Auto 11100 /uL (1500-7000); Neutrophils Percent Auto 83.8 % (50-75); Platelet Count 251 X10^3/uL (150-400); Red Blood Cell Count 3.49 X10^6/uL (4.0-5.2); White Blood Cell Count 13.2 X10^3/uL (4.5-11.0)
[2023-06-15 08:50] LABS: Alanine Aminotransferase 19 IU/L (<35); Albumin 3.7 g/dL (3.5-5.0); Alkaline Phosphatase 115 U/L (38-126); Aspartate Aminotransferase 24 IU/L (14-36); Bilirubin Total 0.4 mg/dL (0.2-1.3); Blood Urea Nitrogen 51 mg/dL (7-17); Calcium 9.2 mg/dL (8.4-10.2); Carbon Dioxide 22 mmol/L (22-32); Chloride 104 mmol/L (98-107); Estimated Glomerular Filt Rate 17 mL/min (>60); Globulin 3.6 g/dL (1.7-4.1); Glucose 163 mg/dL (80-110); HEMOLYSIS < 15 (0-50); Potassium 4.8 mmol/L (3.4-5.1); Sodium 135 mmol/L (137-145); Total Protein 7.3 g/dL (6.3-8.2)
[2023-06-15] MEDS: cefTRIAXone 2,000 MG in SODIUM CHLORIDE 0.9% 100 ML 200 MG IV (09:00)
[2023-06-15] MEDS: TRAMADOL 50 MG TABLET PO ×2 (09:07→15:41)
[2023-06-15] MEDS: GABAPENTIN 300 MG CAPSULE PO ×2 (09:07→15:41)
[2023-06-15] MEDS: ACETAMINOPHEN 325 MG TABLET 650 MG PO (09:15)
[2023-06-15] MEDS: LEVOTHYROXINE 100 MCG TABLET PO (09:54)
[2023-06-15] MEDS: METOPROLOL ER 50 MG TABLET PO (09:54)
--- NOTE | 2023-06-15 15:09 | PC.NURSE ---
Left nephrostomy tube draining clear, yellow 400cc output. Right nephrostomy tube draining white/light brown purulant with 70cc output. Right nephrostomy abd pad changed with opsite-tegaderm covering dressing.
[2023-06-15] MEDS: ONDANSETRON 4 MG/2 ML INJ IV (17:27)
== END 2023-06-15 20:07 | disposition short-term general hospital (02) ==
PROVIDERS: Emergency Medicine; Emergency Provider Emergency Medicine; PCP Family Medicine
DX: T83.022A Displacement of nephrostomy catheter, initial encounter (principal); N39.0 Urinary tract infection, site not specified; R10.9 Unspecified abdominal pain; Z79.899 Other long term (current) drug therapy
CPT/HCPCS: 36415; 74176; 80053; 81001; 82962; 83690; 85025; 87077; 87086; 87186; 93005; 93010; 96365; 96366; 96375; 99284; J0696; J2405

== ENCOUNTER 2023-07-21 10:37 | Inpatient (IN) | payer MEDICARE, OTHER, SELFPAY ==
[2020-11-09 13:02] VITALS: BMI 42.8
[2023-07-21] VITALS (43 sets, daily range): BP systolic 94–143; BP diastolic 39–73; PULSE 76–99; RESP 14–21; TEMP 36.1–36.7; O2SAT 93–99; BMI 47.0
--- NOTE | 2023-07-21 10:54 | ED_ITS ---
HPI - GI Bleed General Chief complaint: GI Bleed Stated complaint: n/v Time Seen by Provider: 07/21/23 10:48 History of Present Illness HPI Narrative: Patient is a 87-year-old female history of chronic kidney disease with bilateral nephrostomy tubes, type 2 diabetes, paroxysmal atrial fibrillation not on anticoagulation, hypertension dyslipidemia hypothyroidism obesity presenting today with nausea vomiting and rectal bleeding. She was at [facility] June 13 for a dislodgement of her nephrostomy tube she reports she stayed there for 8 days she had almost sepsis and antibiotics. She was sent home on antibiotics and feels like she finished them about a week ago. About that same time she has had some increased nausea vomiting. Today she did briefly pass out she had 1 episode of bright red bloody stool. She has ongoing some abdominal pain she feels nauseous EMS gave her Zofran. She denies any sort of chest pain. She has not any fever. Related Data Home Medications Medication Instructions Recorded Confirmed aspirin 81 mg chewable tablet 81 mg PO QDAY ##0 01/31/16 06/15/23 citalopram 10 mg tablet 10 mg PO QDAY ##0 01/31/16 06/15/23 gabapentin 300 mg capsule 300 mg PO TID ##0 01/31/16 07/21/23 (Neurontin) levothyroxine 100 mcg tablet 100 mcg PO QAM ##0 01/31/16 07/21/23 metoprolol succinate 50 mg 50 mg PO DAILY 08/04/19 06/15/23 tablet,extended release 24 hr triamcinolone acetonide 0.1 % 1 applic topical PRN PRN rash 09/05/20 11/10/20 topical cream L.acidophilus-L.bulgar-B.bifid-S.thermoph 2 tab PO DAILY 06/15/23 06/15/23 1 billion cell-250 mg tablet atorvastatin 40 mg tablet 40 mg PO DAILY 07/21/23 07/21/23 hydroxyzine HCl 25 mg tablet 25 mg PO DAILY 07/21/23 07/21/23 meloxicam 15 mg tablet 15 mg PO DAILY 07/21/23 07/21/23 Previous Rx's Medication Instructions Recorded tramadol 50 mg tablet 50 mg PO Q6H PRN pain #10 tabs 09/06/20 ospemifene 60 mg tablet (Osphena) See Rx Instructions .Route 10/18/20 .COMPLEX #90 tabs sodium chloride 0.9 % (flush) (BD 5 ml intra-catheter Q12H Flush 11/10/20 PosiFlush Normal Saline 0.9 % each nephrostomy tube with 5 ml injection syringe) twice daily #1,000 mL y-site line connector, closed #1 ea 11/10/20 Allergies Allergy/AdvReac Type Severity Reaction Status Date / Time alcohol Allergy Severe Rash, Verified 11/10/20 11:17 facial swelling amphotericin B AdvReac Severe Jittery, Verified 11/10/20 11:17 [AMPHOTERICIN B] tremors Patient History Medical History Noncompliant neurogenic bladder Urinary incontinence, mixed Nephrolithiasis Postmenopausal atrophic vaginitis Ureteral obstruction, left MORGAN on CPAP Obstructive uropathy History of recurrent UTI (urinary tract infection) Gross hematuria Pneumothorax Peptic ulcer disease Depression Anxiety GI bleed Calculus of kidney HTN (hypertension) Hypothyroid Surgical History History of thyroidectomy Nephrostomy status Hx of cystoscopy (08/04/19) H/O mastectomy History of hip replacement H/O gastric bypass History of back surgery Hx of bilateral cataract extraction (2012) Family History Father Seizures Mother Heart disease Diabetes mellitus Brother No significant medical problems Sister Diabetes mellitus Grandmother Diabetes mellitus Social History household members: spouse Smoking Status: Never smoker alcohol intake: never eating out: rarely or never Type(s) of exercise: none Smoking Status: Never smoker alcohol intake frequency: other Substance Use Type: does not use Exam Initial Vital Signs Initial Vital Signs: Vital Signs Pulse Rate 99 H 07/21/23 10:41 Pulse Oximetry 94 07/21/23 10:41 GENERAL: Alert pleasant 87 female HEENT: Head atraumatic,EOMI, pupils reactive, face symmetric, moist mucous membranes CARDIOVASCULAR: Regular rate and rhythm without murmurs, rubs or gallops. RESPIRATORY: Breath sounds equal bilaterally, no wheezes rales or rhonchi. ABDOMEN: Soft, nontender. Normoactive bowel sounds all 4 quadrants. No guarding or rebound. RECTAL: Grossly bloody : Bilateral nephrostomy tubes in appear in place with urine in both bags EXTREMITIES: Normal range of motion, no clubbing or edema. Neurovascularly intact NEUROLOGICAL: Alert and oriented x4.Normal gait and speech. SKIN: Warm, dry, no laceration, no petechiae, no rashes or lesions. Course Orders Ordered: ED Orders 07/21/23 10:50 Complete Blood Count AUTO DIFF Stat Comprehensive Metabolic Panel Stat Lactate (Lactic Acid) Stat Lipase Stat PRBC [Packed Cells] Stat PTT Partial Thromboplastin Jalen Stat Prothrombin Time INR Stat Troponin & CK Cardiac Panel Stat Type and Screen Stat 07/21/23 10:58 XR chest 1V Stat EKG-12 Lead Stat 07/21/23 11:00 CT abdomen pelvis wo con Stat 07/21/23 11:13 Urinalysis and Microscopic Stat Urine Culture Stat 07/21/23 13:00 Hemoglobin and Hematocrit Stat 07/21/23 14:22 Blood Culture Stat 07/21/23 17:00 Hemoglobin and Hematocrit Stat 07/21/23 17:27 Consult to Physician Stat Sodium Chloride (Normal Saline 0.9%) 1,000 mls @ 150 mls/hr IV CONT EDMOND Last Admin: 07/21/23 11:07 Dose: 150 mls/hr Documented By: Discontinued Medications Sodium Chloride (Normal Saline 0.9%) 1,000 mls @ 1,000 mls/hr IV BOLUS ONE Stop: 07/21/23 12:48 Last Infusion: 07/21/23 13:08 Dose: Infused Documented By: Admin: 07/21/23 11:51 Dose: 1,000 mls/hr Documented By: Piperacillin Sod/Tazobactam (Sod 4.5 gm/ Sodium Chloride) 100 mls @ 200 mls/hr IV NOW ONE Stop: 07/21/23 13:33 Last Infusion: 07/21/23 15:00 Dose: Infused Documented By: Admin: 07/21/23 14:23 Dose: 200 mls/hr Documented By: Ondansetron HCl (Ondansetron 4 Mg/2 Ml Inj) 4 mg IV NOW ONE Stop: 07/21/23 10:56 Last Admin: 07/21/23 11:23 Dose: Not Given Documented By: Pantoprazole Sodium (Pantoprazole 40 Mg Vial) 40 mg IV NOW ONE Stop: 07/21/23 12:02 Last Admin: 07/21/23 12:08 Dose: 40 mg Documented By: Pantoprazole Sodium (Pantoprazole 40 Mg Vial) 40 mg IV NOW ONE Stop: 07/21/23 17:28 Vital Signs Vital signs: Vital Signs - 8 hr 07/21/23 10:41 07/21/23 10:42 07/21/23 10:42 Temperature Pulse Rate 99 H 99 H Respiratory Rate Blood Pressure 102/66 Pulse Oximetry 94 95 Oxygen Delivery Method 07/21/23 11:00 07/21/23 11:00 07/21/23 11:13 Temperature 98 F Pulse Rate 93 H 98 H Respiratory Rate 14 20 Blood Pressure Pulse Oximetry 96 98 Oxygen Delivery Method Room Air 07/21/23 11:13 07/21/23 11:30 07/21/23 11:46 Temperature Pulse Rate 96 H 94 H Respiratory Rate 17 Blood Pressure 112/56 L Pulse Oximetry 98 97 Oxygen Delivery Method 07/21/23 11:48 07/21/23 11:48 07/21/23 12:00 Temperature Pulse Rate 94 H 88 Respiratory Rate 20 Blood Pressure 94/64 Pulse Oximetry 98 96 Oxygen Delivery Method 07/21/23 12:00 07/21/23 12:15 07/21/23 12:15 Temperature Pulse Rate 84 Respiratory Rate Blood Pressure 119/62 128/60 Pulse Oximetry 96 Oxygen Delivery Method 07/21/23 12:30 07/21/23 12:30 07/21/23 12:45 Temperature Pulse Rate 83 87 Respiratory Rate 19 16 Blood Pressure 118/59 L Pulse Oximetry 97 95 Oxygen Delivery Method 07/21/23 12:45 07/21/23 13:00 07/21/23 13:01 Temperature Pulse Rate 86 84 Respiratory Rate Blood Pressure 131/63 Pulse Oximetry 97 98 Oxygen Delivery Method 07/21/23 13:01 07/21/23 13:16 07/21/23 13:16 Temperature Pulse Rate 86 Respiratory Rate Blood Pressure 132/58 L 133/59 L Pulse Oximetry 97 Oxygen Delivery Method 07/21/23 13:30 07/21/23 13:30 07/21/23 13:50 Temperature Pulse Rate 84 81 Respiratory Rate Blood Pressure 129/63 Pulse Oximetry 97 93 Oxygen Delivery Method 07/21/23 13:50 07/21/23 14:00 07/21/23 14:00 Temperature Pulse Rate 81 Respiratory Rate Blood Pressure 105/73 107/62 Pulse Oximetry 97 Oxygen Delivery Method 07/21/23 14:26 07/21/23 14:26 07/21/23 14:30 Temperature Pulse Rate 79 83 Respiratory Rate Blood Pressure 122/57 L Pulse Oximetry 98 96 Oxygen Delivery Method 07/21/23 14:30 07/21/23 14:45 07/21/23 14:45 Temperature Pulse Rate 81 Respiratory Rate Blood Pressure 132/58 L 125/56 L Pulse Oximetry 97 Oxygen Delivery Method 07/21/23 15:00 07/21/23 15:00 07/21/23 15:15 Temperature Pulse Rate 82 90 Respiratory Rate Blood Pressure 115/56 L Pulse Oximetry 96 Oxygen Delivery Method 07/21/23 15:15 07/21/23 15:30 07/21/23 15:32 Temperature Pulse Rate 83 76 Respiratory Rate Blood Pressure 113/58 L Pulse Oximetry 97 Oxygen Delivery Method 07/21/23 15:32 07/21/23 15:45 07/21/23 15:45 Temperature Pulse Rate 79 Respiratory Rate Blood Pressure 124/55 L 121/55 L Pulse Oximetry 97 Oxygen Delivery Method 07/21/23 16:00 07/21/23 16:00 07/21/23 16:15 Temperature Pulse Rate 78 82 Respiratory Rate Blood Pressure 125/59 L Pulse Oximetry 97 98 Oxygen Delivery Method 07/21/23 16:15 07/21/23 16:30 07/21/23 16:30 Temperature Pulse Rate 79 Respiratory Rate Blood Pressure 127/64 130/63 Pulse Oximetry 95 Oxygen Delivery Method 07/21/23 16:45 07/21/23 16:45 07/21/23 17:00 Temperature Pulse Rate 82 80 Respiratory Rate Blood Pressure 107/51 L Pulse Oximetry 96 97 Oxygen Delivery Method 07/21/23 17:00 07/21/23 17:16 Temperature Pulse Rate 87 Respiratory Rate Blood Pressure 104/51 L Pulse Oximetry 99 Oxygen Delivery Method MDM - GI Bleed Lab Data 07/21/23 16:55 07/21/23 10:50 Labs: Lab Results 07/21/23 07/21/23 07/21/23 Range/Units 10:50 11:13 13:00 WBC 16.8 H (4.5-11.0) X10^3/uL RBC 3.19 L (4.0-5.2) X10^6/uL Hgb 9.1 L 8.1 L (12.0-16.0) g/dL Hct 28.4 L 25.0 L (36-46) % MCV 88.9 (80-100) fL MCH 28.4 (26-34) PG MCHC 31.9 (30-36) % RDW 14.8 (11.6-14.8) % Plt Count 274 (150-400) X10^3/uL Neut % (Auto) 86.3 H (50-75) % Lymph % (Auto) 5.6 L (25-40) % [place] % (Auto) 7.0 (3-14) % Eos % (Auto) 0.5 L (2-4) % Baso % (Auto) 0.6 (0-2) % Neut # (Auto) 40717 H (1517-0789) /uL Lymph # (Auto) 900 L (6945-0119) /uL [facility] # (Auto) 1200 H (0-900) /uL Eos # (Auto) 100 (0-450) /uL Baso # (Auto) 100 (0-100) /uL PT 12.8 H (9.4-12.5) SECONDS INR 1.1 (0.9-1.3) APTT 31 (25.1-36.5) SECONDS Sodium 135 L (137-145) mmol/L Potassium 4.5 (3.4-5.1) mmol/L Chloride 104 (98-107) mmol/L Carbon Dioxide 22 (22-32) mmol/L BUN 40 H (7-17) mg/dL Creatinine 2.03 H (0.52-1.04) mg/dL Estimated GFR 23 L (>60) mL/min BUN/Creatinine Ratio 19.7 (6-22) Glucose 221 H (80-110) mg/dL Lactate 3.3 H 1.6 (0.7-2.1) mmol/L Calcium 8.4 (8.4-10.2) mg/dL Total Bilirubin 0.5 (0.2-1.3) mg/dL AST 21 (14-36) IU/L ALT 15 (<35) IU/L Alkaline Phosphatase 95 (38-126) U/L Total Creatine Kinase 73 (30-135) U/L Troponin I < 0.012 (0.01-0.034) ng/mL Total Protein 6.2 L (6.3-8.2) g/dL Albumin 3.4 L (3.5-5.0) g/dL Globulin 2.8 (1.7-4.1) g/dL Albumin/Globulin Ratio 1.2 (1.0-2.8) Lipase 73 (23-300) U/L Urine Color Yellow Urine Appearance Sl cloudy Urine pH 6.0 (4.5-8.0) Ur Specific [place] 1.025 (1.000-1.035) Urine Protein 2+ H (Negative) Urine Glucose (UA) Negative (Negative) g/dL Urine Ketones Negative (NEGATIVE) Urine Occult Blood 3+ H (Negative) Urine Nitrate Negative (Negative) Urine Bilirubin Negative (NEGATIVE) Urine Urobilinogen 0.2 (0.2) E.U./dL Ur Leukocyte Esterase 3+ H (NEGATIVE) Urine RBC 10-30/hpf H (0-5/HPF) Urine WBC >100/hpf H (0-5/HPF) Ur Squamous Epith Cells 0-1 /hpf (0-5/HPF) Urine Bacteria Many (>30) H (None) Ur Culture Indicated? Specimen cultured Vol Urine Centrifuged 10ml (spun) Blood Type O Negative Antibody Screen Negative Crossmatch See Detail 07/21/23 Range/Units 16:55 WBC (4.5-11.0) X10^3/uL RBC (4.0-5.2) X10^6/uL Hgb 7.8 L (12.0-16.0) g/dL Hct 23.9 L (36-46) % MCV (80-100) fL MCH (26-34) PG MCHC (30-36) % RDW (11.6-14.8) % Plt Count (150-400) X10^3/uL Neut % (Auto) (50-75) % Lymph % (Auto) (25-40) % [place] % (Auto) (3-14) % Eos % (Auto) (2-4) % Baso % (Auto) (0-2) % Neut # (Auto) (1808-4258) /uL Lymph # (Auto) (2912-0893) /uL [facility] # (Auto) (0-900) /uL Eos # (Auto) (0-450) /uL Baso # (Auto) (0-100) /uL PT (9.4-12.5) SECONDS INR (0.9-1.3) APTT (25.1-36.5) SECONDS Sodium (137-145) mmol/L Potassium (3.4-5.1) mmol/L Chloride (98-107) mmol/L Carbon Dioxide (22-32) mmol/L BUN (7-17) mg/dL Creatinine (0.52-1.04) mg/dL Estimated GFR (>60) mL/min BUN/Creatinine Ratio (6-22) Glucose (80-110) mg/dL Lactate (0.7-2.1) mmol/L Calcium (8.4-10.2) mg/dL Total Bilirubin (0.2-1.3) mg/dL AST (14-36) IU/L ALT (<35) IU/L Alkaline Phosphatase (38-126) U/L Total Creatine Kinase (30-135) U/L Troponin I (0.01-0.034) ng/mL Total Protein (6.3-8.2) g/dL Albumin (3.5-5.0) g/dL Globulin (1.7-4.1) g/dL Albumin/Globulin Ratio (1.0-2.8) Lipase (23-300) U/L Urine Color Urine Appearance Urine pH (4.5-8.0) Ur Specific [place] (1.000-1.035) Urine Protein (Negative) Urine Glucose (UA) (Negative) g/dL Urine Ketones (NEGATIVE) Urine Occult Blood (Negative) Urine Nitrate (Negative) Urine Bilirubin (NEGATIVE) Urine Urobilinogen (0.2) E.U./dL Ur Leukocyte Esterase (NEGATIVE) Urine RBC (0-5/HPF) Urine WBC (0-5/HPF) Ur Squamous Epith Cells (0-5/HPF) Urine Bacteria (None) Ur Culture Indicated? Vol Urine Centrifuged Blood Type Antibody Screen Crossmatch Imaging Data CT scan - abdomen/pelvis: Radiologist's Impression: PROCEDURE: CT ABDOMEN PELVIS WO CON INDICATIONS: gi bleed with nephrostomy tubes TECHNIQUE: Axial sections were acquired from the lung bases to the pubic symphysis. Coronal and sagittal reformats were performed. For radiation dose reduction, the following was used: automated exposure control, adjustment of mA and/or kV according to patient size. COMPARISON: [facility], CT, CT KIDNEY URETER BLADDER (KUB), 06/14/2023, 17:34. [facility], CT, CT KUB, 06/17/2023, 20:30. FINDINGS: Image quality: Diagnostic. Lower Chest: No significant findings. URINARY: Right Kidney: No stones or hydronephrosis. Diffuse atrophy. Nephrostomy tube is present. Small foci of air within the collecting system. Right Ureter: Diffuse thickening of the distal ureter with calcific densities within the mid ureter measuring 2 millimeters, unchanged. Left Kidney: Atrophy of the kidney. Simple appearing cystic changes of the kidney. Nephrostomy tube is present. Central collecting system foci of air. Left Ureter: No hydroureter. Bladder: The bladder is decompressed and diminutive. ABDOMEN: Liver: No contour-deforming solid mass. Gallbladder: Layering densities of the gallbladder. Biliary ducts: No biliary dilation. Pancreas: No ductal dilation. Spleen: Size is within normal limits. Adrenal Glands: Partially calcified right 2 centimeter adrenal nodule, unchanged. Stomach and Bowel: Normal colonic caliber, without significant wall thickening. A few colonic diverticula without evidence of acute diverticulitis. There is hazy mesentery surrounding the distal stomach and proximal duodenum and pancreas similar to comparison 414. Peritoneum: No abnormal intraperitoneal fluid. No free air. Ventral Wall: Fat containing umbilical hernia. Abdominal Nodes: No enlarged retroperitoneal or mesenteric lymph nodes. Vessels: Aorta and inferior vena cava are normal in size. PELVIS: Pelvic Organs: Unremarkable. Pelvic Nodes: Unremarkable. Miscellaneous: No inguinal hernias are seen. Bones: Left hip prosthesis. No concerning osseous lesion IMPRESSION: Bilateral nephrostomy tubes are present. Stable densities within the right mid ureter Nonspecific mild fat stranding surrounding the stomach duodenum and pancreas. This is diffusely unchanged from comparison 06/17/2023 however recommend correlation with laboratory values. Differential includes pancreatitis, gastric/duodenal ulcers, or inflammatory disease. Dictated by: Brady Alcocer M.D. on 07/21/2023 at 10:59 ECG Data Attestation: I personally reviewed and interpreted this ECG as follows: Prior ECG tracings: available for review Interpretation: Sinus rhythm rate 92 DE interval 190 QRS [address] changes no T-wave inversions persistent Q-wave in lead 3 similar to previous EKGs MDM Narrative Medical decision making narrative: MDM CC: Abdominal pain nausea vomiting rectal bleeding Complicating co-morbidities: Bilateral nephrostomy tubes, paroxysmal atrial fibrillation on aspirin obesity Medical records reviewed: Previous ED visit have requested [facility] records Differential considered: Sepsis GI bleed Exam documented above, pertinent findings include: Awake alert abdomen is minimally tender significantly pale gross blood on rectal exam Lab Test results independently reviewed as above. Pertinent findings: WBC 16.3 hemoglobin 9.1 previously 10.6 hematocrit 28.4 previously 31.9, platelets 274, sodium 135, potassium 4.5, chloride 104, carbon dioxide 22, BUN 40, creatinine 2.0, glucose 222, lactate 3.3 with repeat 1.6 bilirubin 0.5, AST 21, ALT 15, alk-phos 95 troponin negative Independently reviewed EKG as above no ischemic changes Imaging studies independently reviewed: CT without contrast secondary to GFR, nephrostomy tubes in place nonspecific fat stranding duodenum and pancreas unchanged from previous CT Consultations: Dr. Conrad updated patient's symptoms test results with multiple comorbidities decreasing hemoglobin would prefer that patient be transferred elsewhere 1730 Dr. Orourke updated on patient's symptoms test results agrees that we can keep it [place] transfuse as needed 1735 Dr. Conrad updated on surgery recommendations agrees with admission Treatments: Protonix, Zosyn, Zofran Re-evaluations: Repeat H and H does show a drop hemoglobin now 8.1 hematocrit 25.0 she did receive 1 L of fluid but this is unlikely to be diluted Discussion: Patient overall appears well she is some mild abdominal tenderness which has been going on CT are overall remained stable no evidence of pancreatitis. She does have leukocytosis concern for sepsis blood cultures have been drawn she has given a dose of Zosyn based on previous urine culture. Urinalysis does have some leukocytes but overall appears clear. Blood pressure remains soft patient remains awake and alert. Would hold off blood transfusion for now pending repeat H&H. H&H again decrease is not tachycardic or hypotensive but is transfused 1 unit of PRBC Attempted to transfer to multiple facilities but any facility is unable to take patient today. Dr. Conrad, Dr. Orourkeultimately agreed to monitor patient here. Discharge Plan Departure Patient Disposition: Admitted As Inpatient Clinical Impression: Acute GI bleeding Admit Date/Time: 07/21/23 17:27 Admit Provider: Shawn Conrad
--- NOTE | 2023-07-21 10:58 | DI.RAD.S_ITS ---
PROCEDURE: XR CHEST 1V INDICATIONS: chest pain TECHNIQUE: One view of the chest was acquired. COMPARISON: [facility], CR, XR CHEST 1V, 09/05/2020, 10:14. FINDINGS: Surgical changes and devices: Surgical clips over the left thyroid bed Lungs and pleura: Low lung volumes. Lungs are clear. No pleural effusions or pneumothorax. Mediastinum: Mild cardiomegaly. Heart size is normal. Bones and chest wall: No suspicious bony lesions. Overlying soft tissues appear unremarkable. Osteoarthritic changes of the shoulders. IMPRESSION: Cardiomegaly. No acute pulmonary findings. Dictated by: Brady Alcocer M.D. on 07/21/2023 at 10:21 Approved by: Brady Alcocer M.D. on 07/21/2023 at 10:23
--- NOTE | 2023-07-21 11:00 | DI.CT.S_ITS ---
PROCEDURE: CT ABDOMEN PELVIS WO CON INDICATIONS: gi bleed with nephrostomy tubes TECHNIQUE: Axial sections were acquired from the lung bases to the pubic symphysis. Coronal and sagittal reformats were performed. For radiation dose reduction, the following was used: automated exposure control, adjustment of mA and/or kV according to patient size. COMPARISON: [facility], CT, CT KIDNEY URETER BLADDER (KUB), 06/14/2023, 17:34. [facility], CT, CT KUB, 06/17/2023, 20:30. FINDINGS: Image quality: Diagnostic. Lower Chest: No significant findings. URINARY: Right Kidney: No stones or hydronephrosis. Diffuse atrophy. Nephrostomy tube is present. Small foci of air within the collecting system. Right Ureter: Diffuse thickening of the distal ureter with calcific densities within the mid ureter measuring 2 millimeters, unchanged. Left Kidney: Atrophy of the kidney. Simple appearing cystic changes of the kidney. Nephrostomy tube is present. Central collecting system foci of air. Left Ureter: No hydroureter. Bladder: The bladder is decompressed and diminutive. ABDOMEN: Liver: No contour-deforming solid mass. Gallbladder: Layering densities of the gallbladder. Biliary ducts: No biliary dilation. Pancreas: No ductal dilation. Spleen: Size is within normal limits. Adrenal Glands: Partially calcified right 2 centimeter adrenal nodule, unchanged. Stomach and Bowel: Normal colonic caliber, without significant wall thickening. A few colonic diverticula without evidence of acute diverticulitis. There is hazy mesentery surrounding the distal stomach and proximal duodenum and pancreas similar to comparison 414. Peritoneum: No abnormal intraperitoneal fluid. No free air. Ventral Wall: Fat containing umbilical hernia. Abdominal Nodes: No enlarged retroperitoneal or mesenteric lymph nodes. Vessels: Aorta and inferior vena cava are normal in size. PELVIS: Pelvic Organs: Unremarkable. Pelvic Nodes: Unremarkable. Miscellaneous: No inguinal hernias are seen. Bones: Left hip prosthesis. No concerning osseous lesion IMPRESSION: Bilateral nephrostomy tubes are present. Stable densities within the right mid ureter Nonspecific mild fat stranding surrounding the stomach duodenum and pancreas. This is diffusely unchanged from comparison 06/17/2023 however recommend correlation with laboratory values. Differential includes pancreatitis, gastric/duodenal ulcers, or inflammatory disease. Dictated by: Brady Alcocer M.D. on 07/21/2023 at 10:59 Approved by: Brady Alcocer M.D. on 07/21/2023 at 11:11
[2023-07-21 11:06] LABS: Add Manual Diff / Slide Review NO; Basophils Absolute Auto 100 /uL (0-100); Basophils Percent Auto 0.6 % (0-2); Eosinophils Absolute Auto 100 /uL (0-450); Eosinophils Percent Auto 0.5 % (2-4); Hematocrit 28.4 % (36-46); Hemoglobin 9.1 g/dL (12.0-16.0); Lymphocytes Absolute Auto 900 /uL (1100-4500); Lymphocytes Percent Auto 5.6 % (25-40); Mean Corpuscular HGB Conc 31.9 % (30-36); Mean Corpuscular Hemoglobin 28.4 PG (26-34); Mean Corpuscular Volume 88.9 fL (80-100); Monocytes Absolute Auto 1200 /uL (0-900); Neutrophils Absolute Auto 14500 /uL (1500-7000); Neutrophils Percent Auto 86.3 % (50-75); Platelet Count 274 X10^3/uL (150-400); Red Blood Cell Count 3.19 X10^6/uL (4.0-5.2); Red Cell Distribution Width 14.8 % (11.6-14.8); White Blood Cell Count 16.8 X10^3/uL (4.5-11.0)
[2023-07-21] MEDS: SODIUM CHLORIDE 0.9% 1,000 ML 150 ML IV (11:07)
[2023-07-21 11:08] LABS: INR 1.1 (0.9-1.3); Prothrombin Time 12.8 SECONDS (9.4-12.5)
[2023-07-21 11:10] LABS: PTT Partial Thromboplastin Tim 31 SECONDS (25.1-36.5)
[2023-07-21 11:12] LABS: Alanine Aminotransferase 15 IU/L (<35); Albumin 3.4 g/dL (3.5-5.0); Albumin Globulin Ratio 1.2 (1.0-2.8); Alkaline Phosphatase 95 U/L (38-126); Aspartate Aminotransferase 21 IU/L (14-36); BUN Creatinine Ratio 19.7 (6-22); Bilirubin Total 0.5 mg/dL (0.2-1.3); Blood Urea Nitrogen 40 mg/dL (7-17); Calcium 8.4 mg/dL (8.4-10.2); Carbon Dioxide 22 mmol/L (22-32); Chloride 104 mmol/L (98-107); Creatine Kinase 73 U/L (30-135); Estimated Glomerular Filt Rate 23 mL/min (>60); Globulin 2.8 g/dL (1.7-4.1); Glucose 221 mg/dL (80-110); HEMOLYSIS 15 (0-50); Lipase 73 U/L (23-300); Potassium 4.5 mmol/L (3.4-5.1); Sodium 135 mmol/L (137-145); Total Protein 6.2 g/dL (6.3-8.2)
[2023-07-21 11:13] LABS: Lactate (Lactic Acid) 3.3 mmol/L (0.7-2.1)
[2023-07-21 11:24] LABS: Troponin I < 0.012 ng/mL (0.01-0.034)
[2023-07-21 11:38] LABS: Appearance Urine UA SL CLOUDY; Bilirubin Urine UA Negative (NEGATIVE); Color Urine UA Yellow; Glucose Urine UA NEGATIVE (Negative); Ketones Urine UA NEGATIVE (NEGATIVE); Nitrite Urine UA NEGATIVE (Negative); Occult Blood Urine UA 3+ (Negative); Protein Urine UA 2+ (Negative); Specific Gravity Urine UA 1.025 (1.000-1.035); Urobilinogen Urine UA 0.2 E.U./dL (0.2)
[2023-07-21 11:39] LABS: Bacteria Urine Many (>30); Culture Indicated Urine Specimen Cultured; Leukocyte Esterase Urine UA 3+ (NEGATIVE); RBC Urine 10-30/HPF (0-5/HPF); Squamous Epithelial Cell Urine 0-1 /HPF (0-5/HPF); Urine Volume 10mL (spun); WBC Urine >100/HPF (0-5/HPF)
[2023-07-21] MEDS: SODIUM CHLORIDE 0.9% 1,000 ML 1000 ML IV (11:51)
[2023-07-21] MEDS: PANTOPRAZOLE 40 MG VIAL IV ×2 (12:08→18:16)
[2023-07-21 12:38] LABS: Reflexed Lactate in 2 Hours Y
[2023-07-21 13:08] LABS: Hemoglobin 8.1 g/dL (12.0-16.0)
[2023-07-21 13:26] LABS: Lactate 2HR (Lactic Acid Rflx) 1.6 mmol/L (0.7-2.1)
[2023-07-21] MEDS: PIPERACILLIN/TAZO 4.5 GM in SODIUM CHLORIDE 0.9% 100 ML IV (14:23)
[2023-07-21 16:58] LABS: Hematocrit 23.9 % (36-46); Hemoglobin 7.8 g/dL (12.0-16.0)
--- NOTE | 2023-07-21 18:27 | P.HP_ITS ---
History of Present Illness History of Present Illness Date Patient Seen: 07/21/23 Time Patient Seen: 18:28 Chief complaint: n/v Narrative: 87 year old female with a history of chronic kidney disease with bilateral nephrostomy tubes complicated urinary tract infections atrial fibrillation not on anticoagulation lumbar degenerative disc disease lower extremity neuropathy morbid obesity who lives on [facility] with her who has caregivers who come in. Patient has had a complicated recent history of health. She was recently in the hospital at [facility] because she had problems with her nephrostomy tube and sepsis she was hospitalized for 8 days. This initiated after she saw her primary care physician in the office about ongoing abdominal pain. Since her hospitalization she is continued to have abdominal pain she says the pain is from the top of her stomach down to her lower ribcage. She says it has been getting worse. It has been not not associated with fevers or chills change in bladder or bowel problems. She was sitting at the breakfast this morning with her and she said she passed out. At that point the ambulance was called and she presented to the emergency department. On my evaluation patient is complaining of abdominal pain. She had 2 episodes of diarrhea with blood in it she says she does not have that before she has not having a history of gastrointestinal bleeding she is on a baby aspirin and takes meloxicam. On arrival to emergency department she had a white blood cell count of 16.8 and hemoglobin of 7.8 normal platelet count. Her INR is 1.1 her electrolytes are normal. She has a chronic kidney disease with an EGFR of 23. She has a glucose of 221 which makes her diabetic which is not noticeable on her previous history that I am aware of. Her urinalysis shows signs of infection. CT scan shows bilateral nephrostomy tubes present nonspecific fat stranding surrounding the stomach and duodenum and pancreas unchanged from previous CT scan. [facility] Medical History Noncompliant neurogenic bladder Urinary incontinence, mixed Nephrolithiasis Postmenopausal atrophic vaginitis Ureteral obstruction, left MORGAN on CPAP Obstructive uropathy History of recurrent UTI (urinary tract infection) Gross hematuria Pneumothorax Peptic ulcer disease Depression Anxiety GI bleed Calculus of kidney HTN (hypertension) Hypothyroid Surgical History History of thyroidectomy Nephrostomy status Hx of cystoscopy (08/04/19) H/O mastectomy History of hip replacement H/O gastric bypass History of back surgery Hx of bilateral cataract extraction (2012) Family History Father Seizures Mother Heart disease Diabetes mellitus Brother No significant medical problems Sister Diabetes mellitus Grandmother Diabetes mellitus Social History household members: spouse Smoking Status: Never smoker alcohol intake: never eating out: rarely or never Type(s) of exercise: none Meds Home Medications and Allergies Home Medications Medication Instructions Recorded Confirmed Type aspirin 81 mg chewable tablet 81 mg PO QDAY ##0 01/31/16 07/21/23 History gabapentin 300 mg capsule 300 mg PO TID ##0 01/31/16 07/21/23 History (Neurontin) levothyroxine 100 mcg tablet 100 mcg PO QAM ##0 01/31/16 07/21/23 History metoprolol succinate 50 mg 50 mg PO DAILY 08/04/19 07/21/23 History tablet,extended release 24 hr tramadol 50 mg tablet 50 mg PO Q6H PRN pain #10 tabs 09/06/20 07/21/23 Rx ospemifene 60 mg tablet (Osphena) See Rx Instructions .Route 10/18/20 07/21/23 Rx .COMPLEX #90 tabs sodium chloride 0.9 % (flush) (BD 5 ml intra-catheter Q12H Flush 11/10/20 07/21/23 Rx PosiFlush Normal Saline 0.9 % each nephrostomy tube with 5 ml injection syringe) twice daily #1,000 mL y-site line connector, closed #1 ea 11/10/20 07/21/23 Rx L.acidophilus-L.bulgar-B.bifid-S.thermoph 2 tab PO DAILY 06/15/23 07/21/23 History 1 billion cell-250 mg tablet atorvastatin 40 mg tablet 40 mg PO DAILY 07/21/23 07/21/23 History hydroxyzine HCl 25 mg tablet 25 mg PO DAILY 07/21/23 07/21/23 History meloxicam 15 mg tablet 15 mg PO DAILY 07/21/23 07/21/23 History Allergies Allergy/AdvReac Type Severity Reaction Status Date / Time alcohol Allergy Severe Rash, Verified 11/10/20 11:17 facial swelling amphotericin B AdvReac Severe Jittery, Verified 11/10/20 11:17 [AMPHOTERICIN B] tremors Exam Vital Signs (past 8 hours): - 07/21/23 10:41 07/21/23 10:42 07/21/23 10:42 Temperature Pulse Rate 99 H 99 H Respiratory Rate Blood Pressure 102/66 Pulse Oximetry 94 95 Oxygen Delivery Method 07/21/23 11:00 07/21/23 11:00 07/21/23 11:13 Temperature 98 F Pulse Rate 93 H 98 H Respiratory Rate 14 20 Blood Pressure Pulse Oximetry 96 98 Oxygen Delivery Method Room Air 07/21/23 11:13 07/21/23 11:30 07/21/23 11:46 Temperature Pulse Rate 96 H 94 H Respiratory Rate 17 Blood Pressure 112/56 L Pulse Oximetry 98 97 Oxygen Delivery Method 07/21/23 11:48 07/21/23 11:48 07/21/23 12:00 Temperature Pulse Rate 94 H 88 Respiratory Rate 20 Blood Pressure 94/64 Pulse Oximetry 98 96 Oxygen Delivery Method 07/21/23 12:00 07/21/23 12:15 07/21/23 12:15 Temperature Pulse Rate 84 Respiratory Rate Blood Pressure 119/62 128/60 Pulse Oximetry 96 Oxygen Delivery Method 07/21/23 12:30 07/21/23 12:30 07/21/23 12:45 Temperature Pulse Rate 83 87 Respiratory Rate 19 16 Blood Pressure 118/59 L Pulse Oximetry 97 95 Oxygen Delivery Method 07/21/23 12:45 07/21/23 13:00 07/21/23 13:01 Temperature Pulse Rate 86 84 Respiratory Rate Blood Pressure 131/63 Pulse Oximetry 97 98 Oxygen Delivery Method 07/21/23 13:01 07/21/23 13:16 07/21/23 13:16 Temperature Pulse Rate 86 Respiratory Rate Blood Pressure 132/58 L 133/59 L Pulse Oximetry 97 Oxygen Delivery Method 07/21/23 13:30 07/21/23 13:30 07/21/23 13:50 Temperature Pulse Rate 84 81 Respiratory Rate Blood Pressure 129/63 Pulse Oximetry 97 93 Oxygen Delivery Method 07/21/23 13:50 07/21/23 14:00 07/21/23 14:00 Temperature Pulse Rate 81 Respiratory Rate Blood Pressure 105/73 107/62 Pulse Oximetry 97 Oxygen Delivery Method 07/21/23 14:26 07/21/23 14:26 07/21/23 14:30 Temperature Pulse Rate 79 83 Respiratory Rate Blood Pressure 122/57 L Pulse Oximetry 98 96 Oxygen Delivery Method 07/21/23 14:30 07/21/23 14:45 07/21/23 14:45 Temperature Pulse Rate 81 Respiratory Rate Blood Pressure 132/58 L 125/56 L Pulse Oximetry 97 Oxygen Delivery Method 07/21/23 15:00 07/21/23 15:00 07/21/23 15:15 Temperature Pulse Rate 82 90 Respiratory Rate Blood Pressure 115/56 L Pulse Oximetry 96 Oxygen Delivery Method 07/21/23 15:15 07/21/23 15:30 07/21/23 15:32 Temperature Pulse Rate 83 76 Respiratory Rate Blood Pressure 113/58 L Pulse Oximetry 97 Oxygen Delivery Method 07/21/23 15:32 07/21/23 15:45 07/21/23 15:45 Temperature Pulse Rate 79 Respiratory Rate Blood Pressure 124/55 L 121/55 L Pulse Oximetry 97 Oxygen Delivery Method 07/21/23 16:00 07/21/23 16:00 07/21/23 16:15 Temperature Pulse Rate 78 82 Respiratory Rate Blood Pressure 125/59 L Pulse Oximetry 97 98 Oxygen Delivery Method 07/21/23 16:15 07/21/23 16:30 07/21/23 16:30 Temperature Pulse Rate 79 Respiratory Rate Blood Pressure 127/64 130/63 Pulse Oximetry 95 Oxygen Delivery Method 07/21/23 16:45 07/21/23 16:45 07/21/23 17:00 Temperature Pulse Rate 82 80 Respiratory Rate Blood Pressure 107/51 L Pulse Oximetry 96 97 Oxygen Delivery Method 07/21/23 17:00 07/21/23 17:16 07/21/23 17:30 Temperature Pulse Rate 87 82 Respiratory Rate 14 Blood Pressure 104/51 L Pulse Oximetry 99 96 Oxygen Delivery Method 07/21/23 17:45 07/21/23 17:45 07/21/23 17:48 Temperature Pulse Rate 81 80 Respiratory Rate 17 21 Blood Pressure 118/58 L Pulse Oximetry 98 98 Oxygen Delivery Method 07/21/23 17:48 07/21/23 17:50 07/21/23 17:51 Temperature 98.1 F Pulse Rate 83 81 Respiratory Rate 19 18 Blood Pressure 120/58 L 117/57 L Pulse Oximetry 98 Oxygen Delivery Method 07/21/23 18:00 07/21/23 18:04 07/21/23 18:15 Temperature 98 F 97.8 F Pulse Rate 86 82 Respiratory Rate 18 Blood Pressure 107/57 L Pulse Oximetry 98 Oxygen Delivery Method 07/21/23 18:15 07/21/23 18:15 Temperature Pulse Rate 85 Respiratory Rate 18 Blood Pressure 112/54 L Pulse Oximetry 93 Oxygen Delivery Method Oxygen Delivery Method Room Air Narrative Exam Narrative: Gen.: Patient is alert good historian HEENT: pupils equal round and reactive or mucosa is moist neck is supple Cardio: S1-S2 irregular rhythm Respiratory: normal respiratory effort lungs are clear to auscultation Abdomen: obese diffuse tenderness. No rebound or guarding. Nephrostomy tubes in place Extremities: some lower extremity edema Objective Labs 07/22/23 05:01 07/22/23 05:01 Labs: Laboratory Results - last 24 hr 07/21/23 07/21/23 07/21/23 10:50 11:13 13:00 WBC 16.8 H RBC 3.19 L Hgb 9.1 L 8.1 L Hct 28.4 L 25.0 L MCV 88.9 MCH 28.4 MCHC 31.9 RDW 14.8 Plt Count 274 Neut % (Auto) 86.3 H Lymph % (Auto) 5.6 L [place] % (Auto) 7.0 Eos % (Auto) 0.5 L Baso % (Auto) 0.6 Neut # (Auto) 73949 H Lymph # (Auto) 900 L [place] # (Auto) 1200 H Eos # (Auto) 100 Baso # (Auto) 100 PT 12.8 H INR 1.1 APTT 31 Sodium 135 L Potassium 4.5 Chloride 104 Carbon Dioxide 22 BUN 40 H Creatinine 2.03 H Estimated GFR 23 L BUN/Creatinine Ratio 19.7 Glucose 221 H Lactate 3.3 H 1.6 Calcium 8.4 Total Bilirubin 0.5 AST 21 ALT 15 Alkaline Phosphatase 95 Total Creatine Kinase 73 Troponin I < 0.012 Total Protein 6.2 L Albumin 3.4 L Globulin 2.8 Albumin/Globulin Ratio 1.2 Lipase 73 Urine Color Yellow Urine Appearance Sl cloudy Urine pH 6.0 Ur Specific [place] 1.025 Urine Protein 2+ H Urine Glucose (UA) Negative Urine Ketones Negative Urine Occult Blood 3+ H Urine Nitrate Negative Urine Bilirubin Negative Urine Urobilinogen 0.2 Ur Leukocyte Esterase 3+ H Urine RBC 10-30/hpf H Urine WBC >100/hpf H Ur Squamous Epith Cells 0-1 /hpf Urine Bacteria Many (>30) H Ur Culture Indicated? Specimen cultured Vol Urine Centrifuged 10ml (spun) Blood Type O Negative Antibody Screen Negative Crossmatch See Detail 07/21/23 16:55 WBC RBC Hgb 7.8 L Hct 23.9 L MCV MCH MCHC RDW Plt Count Neut % (Auto) Lymph % (Auto) [place] % (Auto) Eos % (Auto) Baso % (Auto) Neut # (Auto) Lymph # (Auto) [place] # (Auto) Eos # (Auto) Baso # (Auto) PT INR APTT Sodium Potassium Chloride Carbon Dioxide BUN Creatinine Estimated GFR BUN/Creatinine Ratio Glucose Lactate Calcium Total Bilirubin AST ALT Alkaline Phosphatase Total Creatine Kinase Troponin I Total Protein Albumin Globulin Albumin/Globulin Ratio Lipase Urine Color Urine Appearance Urine pH Ur Specific [place] Urine Protein Urine Glucose (UA) Urine Ketones Urine Occult Blood Urine Nitrate Urine Bilirubin Urine Urobilinogen Ur Leukocyte Esterase Urine RBC Urine WBC Ur Squamous Epith Cells Urine Bacteria Ur Culture Indicated? Vol Urine Centrifuged Blood Type Antibody Screen Crossmatch Assessment & Plan Assessment and plan (1) Acute GI bleeding: Status: Acute Plan gastrointestinal bleed. Patient with gastrointestinal bleed with a hemoglobin of 7 it is acute. She has not had this before. Patient is on an aspirin and meloxicam. She has diffuse abdominal pain. CT scan shows diffuse inflammation and duodenum and stomach. Differential diagnosis is include upper bleed due to ulcer or neoplasm general surgery was consulted. Patient will need an upper endoscopy for further evaluation. Bleeding could also be from lower gastrointestinal source but will start with upper evaluation. Patient's hemoglobin is no enough and continued to drip down patient will receive 1 unit of packed red blood cells and we will continue to trend her hemoglobin hematocrit. Aspirin and meloxicam will obviously be stopped. Acute blood loss anemia due to gastrointestinal bleed. Blood 1 unit given. She has not actively hemorrhaging. She had 2 loose bowel movements with blood. Monitor hemoglobin and hematocrit. Acute urinary tract infection. Patient with bilateral nephrostomy tubes elevated white blood cell count. Urinalysis consistent with this. He is of abdominal pain recent history of infections. Patient was started on Zosyn will continue Zosyn coverage for her urinary tract infection elevated lactate and white blood cell count. Will follow cultures and adjust antibiotics appropriately. Acute kidney injury. Patient with acute kidney injury creatinine is 2.0 EGFR less than 30 grade 3B. Monitor ins and outs and electrolyte balance and hopefully kidneys will continue to improve. avoid nephrotoxic drugs. Continue with hydration and electrolytes. Atrial fibrillation. Patient with rate controlled atrial fibrillation. She has not on anticoagulation at home. Will monitor heart rate. Patient will be continued on her metoprolol. Diabetes. Patient has a blood sugar greater than 200. Patient will be on a diabetic diet. She will have insulin for sliding scale coverage. This does not appear to be a previous diagnosis for her and is new. Hyperlipidemia. Patient will be started on her atorvastatin. Hypothyroidism. Patient will be started back on her levothyroxine. Disposition plan patient has guarded. Transfuse to keep hemoglobin greater than 9. General surgery has been consulted for upper endoscopy. PROFEE Charge Codes Initial inpatient/observation care: [id number]
--- NOTE | 2023-07-21 18:29 | CM.DANOTE ---
DCP Assessment Note: Pt is a 87yo female, resident of [facility], presented to the ED for acute GI bleeding. Pt has a hx of chronic kidney disease with bilateral nephrostomy tubes, type 2 diabetes, and hypertension. Pt lives in a house with her , Melquiades. Per [facility], pt was recently transferred to [facility] on 06/14 for acute kidney failure after presenting to [place] ED on 06/13 for a dislodgment of her nephrostomy tube. Pt's Primary Care Provider is Dr. Sd Joshi and insurance is Medicare and [facility]. Reviewed EMR and discussed pt with ED staff for medical status and initial discharge needs. ED BROILER MANAGER met with pt at bedside in the ED, introduced self and role. Pt was found in bed, alert and oriented, cooperative with assessment. Pt confirmed living situation and good support in , daughter (Camila, who lives in [facility]), and having daily home health aides who assist with changing her nephrostomy tube and other ADLs. Pt could not recall which agency they work with but are provided through her alf care insurance, [employer]. Pt confirmed a history of working with [employer] in the past as well as SNF placement ~10 years ago at [facility]. Pt has a close friend who assists with her medical care coordination, PRO Lopez, (ph#[phone]) whom the pt requests to be updated with her medical care as well as her daughter, Camila Urias, when possible. Plan: Pt has been admitted as inpatient for further observation. CM team will plan to follow clinical course closely for assessment of need and coordination of discharge plan. TEMO Madrigal Discharge Planning/Care Management CM Discharge Assessment Start: 07/21/23 18:18 Freq: Status: Active Protocol: Document 07/21/23 18:18 MW (Rec: 07/21/23 18:29 MW [id number]) Discharge Planning Assessment Assigned Vegetable Vendor BIANCA Avery DPOA/Assigned Designee Name Peri Lopez Contact Information [phone] Advance Directives? Yes Advance Directives on File Yes History Provided By Patient,Medical Record Expected Length of Stay 2 Has Patient been admitted in last 30 No days? Comment Pt was transferred to [facility] on 06/15/2023 for acute kidney failure after presenting to ED on 2023. Prior Living Arrangements House Household Members spouse Type of transporation used prior to Drives own vehicle admit Independent with ADL's Yes Is patient alert and oriented? Yes Caregiver for Another No DME Already Rented / Owned FWW / Walker Patient/Family Preference Home with Home Health Barriers to Discharge No Discharge Plan Home Transportation Arrangement Family or caregivers to provide transport at time of discharge. Whiteboard Updated in Patient Room with No name and ext. # of Vegetable Vendor Please Provide Date Initial DC 07/21/23 Assessment Was Performed Next Review Type Continued Stay Review
--- NOTE | 2023-07-21 19:26 | PM.CALLCOV.1 ---
Call Coverage Note Note Date of Patient Contact: 07/21/23 Time of Patient Contact: 19:26 Narrative of Care Provided: 87F on ASA and meloxicam with GI bleed. Hemodynamically stable initial Hct 28 has received 1 unit PRBCs. Esophagogastroduodenoscopy tomorrow 07/21 9am NPO after midnight Transfuse as necessary Notify if becoming hemodynamically unstable PPI
--- NOTE | 2023-07-21 19:39 | PC.NURSE ---
Zosyn ordered q6 hrs per Dr Conrad via telephone. 1 unit of blood transfusing currently and Dr Conrad verbalized to recheck labs in morning unless patient is actively bleeding.
[2023-07-21] MEDS: GABAPENTIN 300 MG CAPSULE PO (20:25)
[2023-07-21] MEDS: SODIUM CHLORIDE 0.9% 1,000 ML 100 ML IV (20:28)
[2023-07-21] MEDS: PIPERACILLIN/TAZO 3.375 GM in SODIUM CHLORIDE 0.9% 100 ML IV (20:54)
[2023-07-22] VITALS (100 sets, daily range): BP systolic 76–143; BP diastolic 41–77; PULSE 66–92; RESP 1–63; TEMP 35.7–37.2; O2SAT 90–100; BMI 45.8
[2023-07-22 05:45] LABS: Add Manual Diff / Slide Review NO; Basophils Absolute Auto 100 /uL (0-100); Basophils Percent Auto 0.8 % (0-2); Eosinophils Absolute Auto 300 /uL (0-450); Eosinophils Percent Auto 2.5 % (2-4); Hematocrit 26.1 % (36-46); Hemoglobin 8.5 g/dL (12.0-16.0); Lymphocytes Absolute Auto 1900 /uL (1100-4500); Lymphocytes Percent Auto 14.5 % (25-40); Mean Corpuscular HGB Conc 32.7 % (30-36); Mean Corpuscular Hemoglobin 28.5 PG (26-34); Mean Corpuscular Volume 87.1 fL (80-100); Monocytes Absolute Auto 1300 /uL (0-900); Monocytes Percent Auto 10.1 % (3-14); Neutrophils Absolute Auto 9200 /uL (1500-7000); Neutrophils Percent Auto 72.1 % (50-75); Platelet Count 218 X10^3/uL (150-400); Red Blood Cell Count 2.99 X10^6/uL (4.0-5.2); Red Cell Distribution Width 15.1 % (11.6-14.8); White Blood Cell Count 12.8 X10^3/uL (4.5-11.0)
[2023-07-22 06:14] LABS: Alanine Aminotransferase 11 IU/L (<35); Albumin Globulin Ratio 1.1 (1.0-2.8); Alkaline Phosphatase 88 U/L (38-126); Aspartate Aminotransferase 18 IU/L (14-36); Bilirubin Total 0.6 mg/dL (0.2-1.3); Blood Urea Nitrogen 58 mg/dL (7-17); Calcium 8.4 mg/dL (8.4-10.2); Carbon Dioxide 21 mmol/L (22-32); Chloride 111 mmol/L (98-107); Estimated Glomerular Filt Rate 23 mL/min (>60); Globulin 2.7 g/dL (1.7-4.1); Glucose 113 mg/dL (80-110); HEMOLYSIS < 15 (0-50); Potassium 4.7 mmol/L (3.4-5.1); Sodium 138 mmol/L (137-145); Total Protein 5.7 g/dL (6.3-8.2)
[2023-07-22] MEDS: LEVOTHYROXINE 100 MCG TABLET PO (06:22)
[2023-07-22] MEDS: LACTATED RINGERS 1,000 ML 84 ML IV (08:44)
--- NOTE | 2023-07-22 09:06 | P.CONS_ITS ---
History of Present Illness Consult details Date Patient Seen: 07/22/23 Time Patient Seen: 09:06 Chief complaint: n/v Narrative: 87-year-old woman on aspirin and meloxicam admitted to hospital with GI bleed. Describes bright red blood per rectum and some upper abdominal discomfort. At admission hemodynamically normal initial hematocrit 28. No history of peptic ulcer disease. Meds Home Medications and Allergies Home Medications Medication Instructions Recorded Confirmed Type aspirin 81 mg chewable tablet 81 mg PO QDAY ##0 01/31/16 07/21/23 History gabapentin 300 mg capsule 300 mg PO TID ##0 01/31/16 07/21/23 History (Neurontin) levothyroxine 100 mcg tablet 100 mcg PO QAM ##0 01/31/16 07/21/23 History metoprolol succinate 50 mg 50 mg PO DAILY 08/04/19 07/21/23 History tablet,extended release 24 hr tramadol 50 mg tablet 50 mg PO Q6H PRN pain #10 tabs 09/06/20 07/21/23 Rx ospemifene 60 mg tablet (Osphena) See Rx Instructions .Route 10/18/20 07/21/23 Rx .COMPLEX #90 tabs sodium chloride 0.9 % (flush) (BD 5 ml intra-catheter Q12H Flush 11/10/20 07/21/23 Rx PosiFlush Normal Saline 0.9 % each nephrostomy tube with 5 ml injection syringe) twice daily #1,000 mL y-site line connector, closed #1 ea 11/10/20 07/21/23 Rx L.acidophilus-L.bulgar-B.bifid-S.thermoph 2 tab PO DAILY 06/15/23 07/21/23 History 1 billion cell-250 mg tablet atorvastatin 40 mg tablet 40 mg PO DAILY 07/21/23 07/21/23 History hydroxyzine HCl 25 mg tablet 25 mg PO DAILY 07/21/23 07/21/23 History meloxicam 15 mg tablet 15 mg PO DAILY 07/21/23 07/21/23 History Allergies Allergy/AdvReac Type Severity Reaction Status Date / Time alcohol Allergy Severe Rash, Verified 11/10/20 11:17 facial swelling amphotericin B AdvReac Severe Jittery, Verified 11/10/20 11:17 [AMPHOTERICIN B] tremors Exam Vital Signs (past 8 hours): - 07/22/23 03:50 07/22/23 07:00 07/22/23 08:15 Temperature 96.3 F L 97.1 F L Pulse Rate 78 85 Respiratory Rate 17 20 Blood Pressure 133/55 L 143/70 H Pulse Oximetry 99 100 Oxygen Delivery Method Room Air Oxygen Flow Rate 0 0 07/22/23 08:33 Temperature 97.2 F L Pulse Rate 84 Respiratory Rate 16 Blood Pressure 114/77 Pulse Oximetry 100 Oxygen Delivery Method Room Air Oxygen Flow Rate Oxygen Delivery Method Room Air Oxygen Flow Rate 0 Narrative Exam Narrative: General adult woman alert oriented no acute distress Chest nonlabored respiration Extremities warm well perfused Objective Labs 07/22/23 05:01 07/22/23 05:01 Labs: Laboratory Results - last 24 hr 07/21/23 07/21/23 07/21/23 10:50 11:13 13:00 WBC 16.8 H RBC 3.19 L Hgb 9.1 L 8.1 L Hct 28.4 L 25.0 L MCV 88.9 MCH 28.4 MCHC 31.9 RDW 14.8 Plt Count 274 Neut % (Auto) 86.3 H Lymph % (Auto) 5.6 L [place] % (Auto) 7.0 Eos % (Auto) 0.5 L Baso % (Auto) 0.6 Neut # (Auto) 35045 H Lymph # (Auto) 900 L [place] # (Auto) 1200 H Eos # (Auto) 100 Baso # (Auto) 100 PT 12.8 H INR 1.1 APTT 31 Sodium 135 L Potassium 4.5 Chloride 104 Carbon Dioxide 22 BUN 40 H Creatinine 2.03 H Estimated GFR 23 L BUN/Creatinine Ratio 19.7 Glucose 221 H Lactate 3.3 H 1.6 Calcium 8.4 Total Bilirubin 0.5 AST 21 ALT 15 Alkaline Phosphatase 95 Total Creatine Kinase 73 Troponin I < 0.012 Total Protein 6.2 L Albumin 3.4 L Globulin 2.8 Albumin/Globulin Ratio 1.2 Lipase 73 Urine Color Yellow Urine Appearance Sl cloudy Urine pH 6.0 Ur Specific [place] 1.025 Urine Protein 2+ H Urine Glucose (UA) Negative Urine Ketones Negative Urine Occult Blood 3+ H Urine Nitrate Negative Urine Bilirubin Negative Urine Urobilinogen 0.2 Ur Leukocyte Esterase 3+ H Urine RBC 10-30/hpf H Urine WBC >100/hpf H Ur Squamous Epith Cells 0-1 /hpf Urine Bacteria Many (>30) H Ur Culture Indicated? Specimen cultured Vol Urine Centrifuged 10ml (spun) Blood Type O Negative Antibody Screen Negative Crossmatch See Detail 07/21/23 07/22/23 16:55 05:01 WBC 12.8 H RBC 2.99 L Hgb 7.8 L 8.5 L Hct 23.9 L 26.1 L MCV 87.1 MCH 28.5 MCHC 32.7 RDW 15.1 H Plt Count 218 Neut % (Auto) 72.1 Lymph % (Auto) 14.5 L [place] % (Auto) 10.1 Eos % (Auto) 2.5 Baso % (Auto) 0.8 Neut # (Auto) 9200 H Lymph # (Auto) 1900 [place] # (Auto) 1300 H Eos # (Auto) 300 Baso # (Auto) 100 PT INR APTT Sodium 138 Potassium 4.7 Chloride 111 H Carbon Dioxide 21 L BUN 58 H Creatinine 2.07 H Estimated GFR 23 L BUN/Creatinine Ratio 28.0 H Glucose 113 H D Lactate Calcium 8.4 Total Bilirubin 0.6 AST 18 ALT 11 Alkaline Phosphatase 88 Total Creatine Kinase Troponin I Total Protein 5.7 L Albumin 3.0 L Globulin 2.7 Albumin/Globulin Ratio 1.1 Lipase Urine Color Urine Appearance Urine pH Ur Specific [place] Urine Protein Urine Glucose (UA) Urine Ketones Urine Occult Blood Urine Nitrate Urine Bilirubin Urine Urobilinogen Ur Leukocyte Esterase Urine RBC Urine WBC Ur Squamous Epith Cells Urine Bacteria Ur Culture Indicated? Vol Urine Centrifuged Blood Type Antibody Screen Crossmatch [facility] Medical History Noncompliant neurogenic bladder Urinary incontinence, mixed Nephrolithiasis Postmenopausal atrophic vaginitis Ureteral obstruction, left MORGAN on CPAP Obstructive uropathy History of recurrent UTI (urinary tract infection) Gross hematuria Pneumothorax Peptic ulcer disease Depression Anxiety GI bleed Calculus of kidney HTN (hypertension) Hypothyroid Surgical History History of thyroidectomy Nephrostomy status Hx of cystoscopy (08/04/19) H/O mastectomy History of hip replacement H/O gastric bypass History of back surgery Hx of bilateral cataract extraction (2012) Family History Father Seizures Mother Heart disease Diabetes mellitus Brother No significant medical problems Sister Diabetes mellitus Grandmother Diabetes mellitus Social History household members: spouse Tobacco & Substance Use Smoking Status: Never smoker alcohol intake: never Diet and Exercise eating out: rarely or never Type(s) of exercise: none Assessment & Plan Assessment & Plan narrative: 87-year-old woman on NSAIDs with GI bleed hemodynamically stable. Recommending starting with upper endoscopy if negative and continuing to bleed can prep for colonoscopy tomorrow. Overview of the procedure discussed. Procedural risks including hemorrhage, intestinal injury, aspiration reviewed. Questions answered she is in agreement with this plan and provides her consent to proceed.
[2023-07-22] MEDS: propofoL 1,000 MG/100 ML VIAL 5.97 MG IV (10:25)
[2023-07-22] MEDS: SODIUM CHLORIDE 0.9% 1,000 ML 125 ML IV ×2 (10:27→21:03)
[2023-07-22 10:29] LABS: Acinetobacter calcoa-baumannii Not Detected (Not Detect); Bacteroides fragilis Not Detected (Not Detect); Candida albicans Not Detected (Not Detect); Candida auris Not Detected (Not Detect); Candida glabrata Not Detected (Not Detect); Candida krusei Not Detected (Not Detect); Candida parapsilosis Not Detected (Not Detect); Candida tropicalis Not Detected (Not Detect); Cryptococcus neoformans/gatti Not Detected (Not Detect); Enterobacter cloacae complex Not Detected (Not Detect); Enterobacterales Not Detected (Not Detect); Enterococcus faecalis Not Detected (Not Detect); Enterococcus faecium Not Detected (Not Detect); Haemophilus influenzae Not Detected (Not Detect); Klebsiella aerogenes Not Detected (Not Detect); Listeria monocytogenes Not Detected (Not Detect); Neisseria meningitidis Not Detected (Not Detect); Proteus species Not Detected (Not Detect); Pseudomonas aeruginosa Not Detected (Not Detect); Salmonella species Not Detected (Not Detect); Serratia marcescens Not Detected (Not Detect); Staphylococcus epidermidis Not Detected (Not Detect); Staphylococcus lugdunensis Not Detected (Not Detect); Staphylococcus species Not Detected (Not Detect); Stenotrophomonas maltophilia Not Detected (Not Detect); Streptococcus agalactiae (Gr B Not Detected (Not Detect); Streptococcus pneumonia Not Detected (Not Detect); Streptococcus pyogenes (Gr A) Not Detected (Not Detect); Streptococcus species Detected (Not Detect)
--- NOTE | 2023-07-22 10:29 | DI.RAD.S_ITS ---
PROCEDURE: XR CHEST 1V INDICATIONS: OG tube placement TECHNIQUE: One view of the chest was acquired. COMPARISON: [facility], CR, XR CHEST 1V, 07/21/2023, 11:06. FINDINGS: Surgical changes and devices: ET tube is low lying however the awais is mostly obscured. Enteric tube courses below the diaphragm and is within the stomach. Lungs and pleura: Diffuse increased airspace opacities throughout the left lower lobe. Probable small pleural effusion. No pneumothorax. Mediastinum: Mediastinal contours appear normal. Heart size is normal. Bones and chest wall: No suspicious bony lesions. Overlying soft tissues appear unremarkable. IMPRESSION: 1. With the awais obscured, a low-lying ET and increasing airspace opacities left lungs is concerning for malpositioned endotracheal tube possibly within the right mainstem. Consider retraction by 3 centimeters. 2. Increased left airspace opacities may reflect infection, pulmonary edema, or atelectasis. Dr. Alcocer discussed the above findings and recommendation of retracting the ET tube by 2-3 centimeters with Codey the ICU nurse at time of dictation Dictated by: Brady Alcocer M.D. on 07/22/2023 at 9:51 Approved by: Brady Alcocer M.D. on 07/22/2023 at 10:02
[2023-07-22] MEDS: PHENYLEPHRINE 20,000 MCG in DEXTROSE 5% IN WATER 250 ML 15 MCG IV (10:52)
--- NOTE | 2023-07-22 10:52 | P.PN_ITS ---
Subjective Subjective Date Patient Seen: 07/22/23 Time Patient Seen: 10:52 Interval history: Patient seen and evaluated discussed care with tell preparole counseling aide. Patient was stable over night received 1 unit of packed red blood cells without significant hypotension or output concerning for aggressive GI bleed. Patient taken to the endoscopy suite by General surgery. Patient had upper endoscopy which showed significant amount of blood volume in the stomach with the blood clot no active bleeding. During the procedure aspiration occurred of blood and stomach contents. Because of concerns about airway and extubation. Patient was brought to the ICU. Patient is responsive moving all extremities to limited commands. Patient is mechanically ventilated and sedated with propofol. Blood pressure is a little bit low. Discussed care with nurse field crew chief general surgeon who did the scope and tele preparole counseling aide. Care coordinated with ICU nursing team as well. Chart was reviewed and labs were reviewed. Exam Vital Signs (past 8 hours): - 07/22/23 03:50 07/22/23 07:00 07/22/23 08:15 Temperature 96.3 F L 97.1 F L Pulse Rate 78 85 Respiratory Rate 17 20 Blood Pressure 133/55 L 143/70 H Pulse Oximetry 99 100 Oxygen Delivery Method Room Air Oxygen Flow Rate 0 0 Fraction of Inspired Oxygen 07/22/23 08:33 07/22/23 10:43 Temperature 97.2 F L Pulse Rate 84 Respiratory Rate 16 Blood Pressure 114/77 Pulse Oximetry 100 Oxygen Delivery Method Room Air Oxygen Flow Rate Fraction of Inspired Oxygen 60 Fraction of Inspired Oxygen 60 Oxygen Delivery Method Room Air Oxygen Flow Rate 0 Narrative Exam Narrative: Gen.: Patient has open her eyes and moves extremities she is mildly sedated. HEENT: Pupils equal round and reactive patient is mechanically ventilated and has an NG tube in place Cardio: S1-S2 no murmur present Respiratory: Lungs show bilateral aspiration with mechanical breath sounds Abdomen: Soft no tenderness bilateral nephrostomy tubes in place Extremities: SCDs in place warm dry perfused Objective Labs 07/22/23 05:01 07/22/23 05:01 Labs: Laboratory Results - last 24 hr 07/21/23 07/21/23 07/21/23 10:50 11:13 13:00 WBC 16.8 H RBC 3.19 L Hgb 9.1 L 8.1 L Hct 28.4 L 25.0 L MCV 88.9 MCH 28.4 MCHC 31.9 RDW 14.8 Plt Count 274 Neut % (Auto) 86.3 H Lymph % (Auto) 5.6 L Gove % (Auto) 7.0 Eos % (Auto) 0.5 L Baso % (Auto) 0.6 Neut # (Auto) 83303 H Lymph # (Auto) 900 L Gove # (Auto) 1200 H Eos # (Auto) 100 Baso # (Auto) 100 PT 12.8 H INR 1.1 APTT 31 Sodium 135 L Potassium 4.5 Chloride 104 Carbon Dioxide 22 BUN 40 H Creatinine 2.03 H Estimated GFR 23 L BUN/Creatinine Ratio 19.7 Glucose 221 H Lactate 3.3 H 1.6 Calcium 8.4 Total Bilirubin 0.5 AST 21 ALT 15 Alkaline Phosphatase 95 Total Creatine Kinase 73 Troponin I < 0.012 Total Protein 6.2 L Albumin 3.4 L Globulin 2.8 Albumin/Globulin Ratio 1.2 Lipase 73 Urine Color Yellow Urine Appearance Sl cloudy Urine pH 6.0 Ur Specific Gerber 1.025 Urine Protein 2+ H Urine Glucose (UA) Negative Urine Ketones Negative Urine Occult Blood 3+ H Urine Nitrate Negative Urine Bilirubin Negative Urine Urobilinogen 0.2 Ur Leukocyte Esterase 3+ H Urine RBC 10-30/hpf H Urine WBC >100/hpf H Ur Squamous Epith Cells 0-1 /hpf Urine Bacteria Many (>30) H Ur Culture Indicated? Specimen cultured Vol Urine Centrifuged 10ml (spun) A.calcoaceticus-baumannii cmplx PCR Bacteroides fragilis Jana albicans (PCR) Jana auris (PCR) C. glabrata (PCR) C. krusei (PCR) C. parapsilosis (PCR) C. tropicalis (PCR) C. neoform/gattii (PCR) Enterobacterales (PCR) E. cloacae complex PCR Enterococc faecalis PCR Enterococc faecium PCR E. coli (PCR) H. influenzae (PCR) Klebsiella aerogenes (PCR) Klebsiella oxytoca PCR Klebsiella pneumoniae List. monocytogenes PCR N. meningitidis (PCR) Proteus species (PCR) Salmonella spp. (PCR) Serratia marcescens PCR Staphylococcus sp PCR Staph aureus (PCR) mecA/C & MREJ Resist Gene mecA/C-Methicil Resis Gene mcr-1 Colistin Res Gene PCR Staph epidermidis (PCR) Staph lugdunensis PCR S. maltophilia (PCR) Streptococcus sp PCR Group A Strep (PCR) Strep agalactiae (PCR) Strep pneumoniae (PCR) P. aeruginosa (PCR) Allison/B-Vanco Res Genes blaIMP Car res Gene PCR KPC-Carbap Res Gene PCR blaNDM Car Res Gene PCR OXA-48 Carbapenem Resis Gene (PCR) blaVIM Car Res Gene PCR CTX-M Gene Resistance (PCR) Blood Type O Negative Antibody Screen Negative Crossmatch See Detail 07/21/23 07/21/23 07/22/23 14:22 16:55 05:01 WBC 12.8 H RBC 2.99 L Hgb 7.8 L 8.5 L Hct 23.9 L 26.1 L MCV 87.1 MCH 28.5 MCHC 32.7 RDW 15.1 H Plt Count 218 Neut % (Auto) 72.1 Lymph % (Auto) 14.5 L Gove % (Auto) 10.1 Eos % (Auto) 2.5 Baso % (Auto) 0.8 Neut # (Auto) 9200 H Lymph # (Auto) 1900 Gove # (Auto) 1300 H Eos # (Auto) 300 Baso # (Auto) 100 PT INR APTT Sodium 138 Potassium 4.7 Chloride 111 H Carbon Dioxide 21 L BUN 58 H Creatinine 2.07 H Estimated GFR 23 L BUN/Creatinine Ratio 28.0 H Glucose 113 H D Lactate Calcium 8.4 Total Bilirubin 0.6 AST 18 ALT 11 Alkaline Phosphatase 88 Total Creatine Kinase Troponin I Total Protein 5.7 L Albumin 3.0 L Globulin 2.7 Albumin/Globulin Ratio 1.1 Lipase Urine Color Urine Appearance Urine pH Ur Specific Gerber Urine Protein Urine Glucose (UA) Urine Ketones Urine Occult Blood Urine Nitrate Urine Bilirubin Urine Urobilinogen Ur Leukocyte Esterase Urine RBC Urine WBC Ur Squamous Epith Cells Urine Bacteria Ur Culture Indicated? Vol Urine Centrifuged A.calcoaceticus-baumannii cmplx PCR Not detected Bacteroides fragilis Not detected Jana albicans (PCR) Not detected Jana auris (PCR) Not detected C. glabrata (PCR) Not detected C. krusei (PCR) Not detected C. parapsilosis (PCR) Not detected C. tropicalis (PCR) Not detected C. neoform/gattii (PCR) Not detected Enterobacterales (PCR) Not detected E. cloacae complex PCR Not detected Enterococc faecalis PCR Not detected Enterococc faecium PCR Not detected E. coli (PCR) Not detected H. influenzae (PCR) Not detected Klebsiella aerogenes (PCR) Not detected Klebsiella oxytoca PCR Not detected Klebsiella pneumoniae Not detected List. monocytogenes PCR Not detected N. meningitidis (PCR) Not detected Proteus species (PCR) Not detected Salmonella spp. (PCR) Not detected Serratia marcescens PCR Not detected Staphylococcus sp PCR Not detected Staph aureus (PCR) Not detected mecA/C & MREJ Resist Gene Not applicable mecA/C-Methicil Resis Gene Not applicable mcr-1 Colistin Res Gene PCR Not applicable Staph epidermidis (PCR) Not detected Staph lugdunensis PCR Not detected S. maltophilia (PCR) Not detected Streptococcus sp PCR Detected Group A Strep (PCR) Not detected Strep agalactiae (PCR) Not detected Strep pneumoniae (PCR) Not detected P. aeruginosa (PCR) Not detected Allison/B-Vanco Res Genes Not applicable blaIMP Car res Gene PCR Not applicable KPC-Carbap Res Gene PCR Not applicable blaNDM Car Res Gene PCR Not applicable OXA-48 Carbapenem Resis Gene (PCR) Not applicable blaVIM Car Res Gene PCR Not applicable CTX-M Gene Resistance (PCR) Not applicable Blood Type Antibody Screen Crossmatch [facility] Medical History Noncompliant neurogenic bladder Urinary incontinence, mixed Nephrolithiasis Postmenopausal atrophic vaginitis Ureteral obstruction, left MORGAN on CPAP Obstructive uropathy History of recurrent UTI (urinary tract infection) Gross hematuria Pneumothorax Peptic ulcer disease Depression Anxiety GI bleed Calculus of kidney HTN (hypertension) Hypothyroid Surgical History History of thyroidectomy Nephrostomy status Hx of cystoscopy (08/04/19) H/O mastectomy History of hip replacement H/O gastric bypass History of back surgery Hx of bilateral cataract extraction (2012) Family History Father Seizures Mother Heart disease Diabetes mellitus Brother No significant medical problems Sister Diabetes mellitus Grandmother Diabetes mellitus Social History household members: spouse Smoking Status: Never smoker alcohol intake: never eating out: rarely or never Type(s) of exercise: none Assessment & Plan Assessment and plan (1) Acute GI bleeding: Status: Acute Plan Acute gastrointestinal bleed. Endoscopy performed today. Significant blood clot in stomach. No signs of current active bleeding. Patient received 1 unit of packed red blood cells hemoglobin is still low. Provide additional 1 unit of packed red blood cells for patient today. Monitor closely hemoglobin and hematocrit. Acute blood loss anemia. One additional unit of packed red blood cell will be provided monitor closely hemoglobin hematocrit. Aspiration pneumonitis patient with aspiration during endoscopy procedure. Patient was brought back up from the endoscopy suite on the mechanical ventilation because of concerns about extubating patient after aspiration of blood contents. Patient will continue to be mechanically ventilated tell preparole counseling aide was consulted current vent settings respiratory rate 18 FiO2 60% tidal volume 380 peep of 5. ABG will be given chest x-ray was done to confirm tube placement. Patient currently on antibiotics because of urinary tract infection. Acute urinary tract infection. Urine cultures growing out Gram-negative bacilli. Blood culture shows 1 bottle that is positive with Gram-positive cocci. Questionable contaminant. Patient is on Zosyn for coverage on review of previous antibiotics and microbiology this should cover her current bacterial infection. We will wait for culture to make additional changes. Chronic renal failure with acute kidney injury. Patient's BUN creatinine will be monitored. Electrolytes will be monitored. Fluid and blood pressure management will be provided. Atrial fibrillation. Patient with atrial fibrillation patient is not normally on anticoagulation her rate is well controlled. She was started on metoprolol during her hospital stay. We will have to convert over to IV medication if patient remains intubated. Diabetes type 2. Patient is not on medication at home. Blood sugars are high she will be continued on her insulin sliding scale. Hyperlipidemia. Medication on hold as patient is on vent Hypothyroidism medication on hold because patient is on vent Disposition plan patient is full code. Patient is on mechanical ventilation after aspiration during endoscopy procedure for gastrointestinal bleeding. Anticipate her to be extubated here shortly. Transfuse 1 unit of red blood cells continue with IV antibiotics serial hemoglobin hematocrit Quality VTE Deep Vein Thrombosis/Pulmonary Embolism Present on Admission: No
[2023-07-22] MEDS: PIPERACILLIN/TAZO 3.375 GM in SODIUM CHLORIDE 0.9% 100 ML IV ×2 (10:53→18:31)
[2023-07-22 11:32] LABS: Allen Test for ABG Passed? Yes, Passed; Blood Gas Collection Site Right Radial; Fractionated Inspired Oxygen 60; HCO3 ABG 19 mmol/L (23-27); Oxygen Saturation ABG 92 % (95-100); PCO2 ABG 40.3 mmHg (35-45); PO2 ABG 71 mmHg (80-100); TCO2 ABG 20 mmol/L (23-27); pH ABG 7.27 (7.35-7.45)
--- NOTE | 2023-07-22 11:33 | RT ---
ETT WITHDRAWN AT 1115 (POST CXR) PER VERBAL ORDER BY DR. NGUYEN. BILATERAL BREATH SOUNDS NOTED POST.
[2023-07-22 11:36] LABS: Add Manual Diff / Slide Review NO; Basophils Absolute Auto 100 /uL (0-100); Basophils Percent Auto 0.6 % (0-2); Eosinophils Absolute Auto 300 /uL (0-450); Eosinophils Percent Auto 1.8 % (2-4); Hematocrit 23.3 % (36-46); Hemoglobin 7.5 g/dL (12.0-16.0); Lymphocytes Absolute Auto 1400 /uL (1100-4500); Lymphocytes Percent Auto 8.6 % (25-40); Mean Corpuscular HGB Conc 32.1 % (30-36); Mean Corpuscular Hemoglobin 28.4 PG (26-34); Mean Corpuscular Volume 88.5 fL (80-100); Monocytes Absolute Auto 1400 /uL (0-900); Monocytes Percent Auto 8.5 % (3-14); Neutrophils Absolute Auto 13000 /uL (1500-7000); Neutrophils Percent Auto 80.5 % (50-75); Platelet Count 245 X10^3/uL (150-400); Red Blood Cell Count 2.63 X10^6/uL (4.0-5.2); Red Cell Distribution Width 14.9 % (11.6-14.8); White Blood Cell Count 16.2 X10^3/uL (4.5-11.0)
--- NOTE | 2023-07-22 11:37 | PM.OP.EGD ---
Operative Date/Time/Diagnoses Date of procedure: 07/22/23 Time of procedure: 11:37 Pre-op diagnosis: GI bleed Post-op diagnosis: other (GI bleed, aspiration) Procedure & Clinicians Study performed: Diagnostic esophagogastroduodenoscopy Same procedure as scheduled: Yes Indications: 87-year-old woman on aspirin and meloxicam who presented to the emergency department with nausea vomiting and bloody diarrhea. Hemodynamically stable GI bleed presumably upper source for, upper endoscopy indicated Surgeon: Harry Orourke Procedure Notes Procedure in detail: The history and physical was performed/updated and the patient is ASA class is three. The procedure was discussed in detail with the patient. Potential risks complications including infection, bleeding, perforation, need for surgery, aspiration and were explained. Their questions were answered and informed consent was obtained. Patient placed in left lateral decubitus position. Time out was performed. Procedural sedation was administered by Anesthesia. A bite block was placed. the scope was inserted into the mouth and advanced through the esophagus and into the stomach. The stomach was filled with a large volume of clot. Stomach was copiously irrigated and suctioned. The pylorus was intubated and the duodenum was examined to the 2nd portion. Quite difficult to see the gastric and pyloric mucosa despite irrigation given the amount incised of the clots. There does not appear to be any active hemorrhage. The patient aspirated the bloody irrigation and an endotracheal tube was placed during the procedure. The scope was then withdrawn into the stomach and was retroflexed. The stomach was decompressed and scope was withdrawn slowly through the esophagus. We elected to keep the patient intubated given their aspiration with plan to extubate when appropriate in the intensive care unit. FINDINGS Large volume of blood clot within the gastric body. Suspected nonbleeding ulcer in pyloric channel Specimen(s): none sent Complications: other (Aspiration) Impression: Non actively bleeding upper GI bleed. Suspected pyloric channel nonbleeding ulcer Post-procedure Plan for aftercare: Extubate when able 40 mg pantoprazole IV b.i.d. Disposition: ICU
[2023-07-22] MEDS: SODIUM BICARB 8.4% SYRINGE 50 MEQ IV ×2 (11:59→12:08)
[2023-07-22] MEDS: fentaNYL 100 MCG/2 ML INJ 50 MCG IV ×2 (12:11→15:44)
--- NOTE | 2023-07-22 12:11 | P.TELICUCN_ITS ---
History of Present Illness Consult details IF CAMERA ACTIVATED, patient seen via real-time interactive audiovisual communication: Camera activated Date Patient Seen: 07/22/23 Chief complaint: n/v Consent obtained for tele-ship worker care: Yes Patient Location: ICU Provider location (State): [place] Other participants/roles: Hospitalist, Bedside RN, Respiratory therapist Narrative: The patient was seen via real-time interactive audiovisual communication.? Camera activated. This is an 87 years old female with multiple comorbidities including history of atrial fibrillation, not on anticoagulation, diabetes type 2, hyperlipidemia, hypothyroidism, CKD, bilateral nephrostomy tube placement due to complicated UTI, morbid obesity initially presented to ED yesterday with progressively worsening abdominal pain, diarrhea with bloody stools, found to have hemoglobin of 7.8 and concern for ongoing active upper GI bleed. She was hemodynamically stable on admission, received 1 unit of PRBC last night. She was evaluated by gastroenterology with plan to pursue EGD this morning. The patient underwent EGD today in the endoscopy suite, found to have significant amount of blood clots in the stomach but no active bleeding. No interventions performed. During the procedure, patient appeared to have aspirated some blood stomach contents per anesthesia and she was kept intubated, transferred to ICU post-procedure for vent weaning and extubation. Most recent labs reviewed. Hemoglobin 8.5, hematocrit 26, WBC 12.8, platelet count 218. Sodium 138, chloride 111, CO2 21, BUN 58, creatinine 2.07, blood glucose 113, lactate 3.3 now down to 1.6. LFTs within normal limit. UA abnormal with 3+ occult blood, 3+ leukocyte esterase, 10-30 RBCs, >100 WBCs, and many bacteria. Records x 2 positive for gram-positive cocci. Most recent imaging studies reviewed. Chest x-ray with low lung ET tube and increased airspace opacities in the left lungs concerning for malposition endotracheal tube possibly in the right mainstem, recommending withdrawal of 3 cm. Increased left airspace opacities likely from infection versus pulm edema versus atelectasis. CT abdomen/pelvis without contrast showed bilateral nephrostomy tubes, stable densities within the right mid ureter, nonspecific mild fat stranding surrounding the stomach, duodenum and pancreas, reviewed and unchanged from prior comparison on 06/17/2019. Currently, the patient is intubated, sedated on propofol gtt. She is on the ventilator with FiO2 60%, PEEP of 5, tidal volume 380cc, and rate of 18. She is on low-dose phenylephrine gtt. for hypotension. She opens her eyes but does not follow months. [facility] Medical History Noncompliant neurogenic bladder Urinary incontinence, mixed Nephrolithiasis Postmenopausal atrophic vaginitis Ureteral obstruction, left MORGAN on CPAP Obstructive uropathy History of recurrent UTI (urinary tract infection) Gross hematuria Pneumothorax Peptic ulcer disease Depression Anxiety GI bleed Calculus of kidney HTN (hypertension) Hypothyroid Surgical History History of thyroidectomy Nephrostomy status Hx of cystoscopy (08/04/19) H/O mastectomy History of hip replacement H/O gastric bypass History of back surgery Hx of bilateral cataract extraction (2012) Family History Father Seizures Mother Heart disease Diabetes mellitus Brother No significant medical problems Sister Diabetes mellitus Grandmother Diabetes mellitus Social History household members: spouse Smoking Status: Never smoker alcohol intake: never eating out: rarely or never Type(s) of exercise: none Current Medications Current Medications Medications: Home Medications aspirin 81 mg chewable tablet 81 mg PO QDAY ##0 01/31/16 [History Confirmed 07/21/23] gabapentin 300 mg capsule (Neurontin) 300 mg PO TID ##0 01/31/16 [History Confirmed 07/21/23] levothyroxine 100 mcg tablet 100 mcg PO QAM ##0 01/31/16 [History Confirmed 07/21/23] metoprolol succinate 50 mg tablet,extended release 24 hr 50 mg PO DAILY 08/04/19 [History Confirmed 07/21/23] tramadol 50 mg tablet 50 mg PO Q6H PRN pain #10 tabs 09/06/20 [Rx Confirmed 07/21/23] ospemifene 60 mg tablet (Osphena) See Rx Instructions .Route .COMPLEX #90 tabs 10/18/20 [Rx Confirmed 07/21/23] sodium chloride 0.9 % (flush) (BD PosiFlush Normal Saline 0.9 % injection syringe) 5 ml intra-catheter Q12H Flush each nephrostomy tube with 5 ml twice daily #1,000 mL 11/10/20 [Rx Confirmed 07/21/23] y-site line connector, closed #1 ea 11/10/20 [Rx Confirmed 07/21/23] L.acidophilus-L.bulgar-B.bifid-S.thermoph 1 billion cell-250 mg tablet 2 tab PO DAILY 06/15/23 [History Confirmed 07/21/23] atorvastatin 40 mg tablet 40 mg PO DAILY 07/21/23 [History Confirmed 07/21/23] hydroxyzine HCl 25 mg tablet 25 mg PO DAILY 07/21/23 [History Confirmed 07/21/23] meloxicam 15 mg tablet 15 mg PO DAILY 07/21/23 [History Confirmed 07/21/23] Visit Medications (administered) Generic Name Dose Route Start Last Admin Trade Name Freq PRN Reason Stop Dose Admin Citalopram Hydrobromide 10 mg 07/21/23 18:45 07/21/23 20:24 Citalopram 10 Mg Tablet PO Not Given DAILY EDMOND Gabapentin 300 mg 07/21/23 21:00 07/21/23 20:25 Gabapentin 300 Mg Capsule PO 300 mg TID EDMOND Administration Lactated Ringer's 1,000 mls @ 84 mls/hr 07/22/23 08:43 07/22/23 10:28 Lactated Ringers IV 07/22/23 20:37 0 mls/hr NOW ONE Infusion Sodium Chloride 1,000 mls @ 125 mls/hr 07/22/23 10:15 07/22/23 10:27 Normal Saline 0.9% IV 125 mls/hr CONT EDMOND Administration Propofol 1,000 mg in 100 mls @ 2.985 mls/hr 07/22/23 10:15 07/22/23 10:44 Propofol IV 15 mcg/kg/min TITRATE EDMOND 8.955 mls/hr Titration Protocol 5 MCG/KG/MIN Piperacillin Sod/Tazobactam 100 mls @ 25 mls/hr 07/22/23 11:00 07/22/23 10:53 Sod 3.375 gm/ Sodium Chloride IV 25 mls/hr Q8H EDMOND Administration Phenylephrine HCl 20,000 mcg/ 250 mls @ 75 mls/hr 07/22/23 10:30 07/22/23 10:52 Dextrose IV 20 mcg/min TITRATE EDMOND 15 mls/hr Administration Protocol 100 MCG/MIN Propofol 1,000 mg in 100 mls @ 2.985 mls/hr 07/22/23 10:30 07/22/23 10:44 Propofol IV Not Given TITRATE EDMOND Protocol 5 MCG/KG/MIN Insulin Human Lispro 0 unit 07/21/23 21:00 07/22/23 08:34 Insulin Lispro 100 Unit/Ml 3ml Vial SUBCUT Not Given ACHS [facility] Protocol Levothyroxine Sodium 100 mcg 07/21/23 18:45 07/22/23 06:22 Levothyroxine 100 Mcg Tablet PO 100 mcg QACBREAK EDMOND Administration Exam Vital Signs (past 8 hours): - 07/22/23 07:00 07/22/23 08:15 07/22/23 08:33 Temperature 97.1 F L 97.2 F L Pulse Rate 85 84 Respiratory Rate 20 16 Blood Pressure 143/70 H 114/77 Pulse Oximetry 100 100 Oxygen Delivery Method Room Air Room Air Oxygen Flow Rate 0 Fraction of Inspired Oxygen 07/22/23 10:43 07/22/23 11:00 Temperature 97.0 F L Pulse Rate 92 H Respiratory Rate 22 Blood Pressure 76/41 L Pulse Oximetry 97 Oxygen Delivery Method Oxygen Flow Rate Fraction of Inspired Oxygen 60 Fraction of Inspired Oxygen 60 Oxygen Delivery Method Room Air Oxygen Flow Rate 0 Objective Labs 07/22/23 11:22 07/22/23 05:01 Labs: Laboratory Results - last 24 hr 07/21/23 07/21/23 07/21/23 10:50 13:00 14:22 WBC RBC Hgb 8.1 L Hct 25.0 L MCV MCH MCHC RDW Plt Count Neut % (Auto) Lymph % (Auto) [place] % (Auto) Eos % (Auto) Baso % (Auto) Neut # (Auto) Lymph # (Auto) [place] # (Auto) Eos # (Auto) Baso # (Auto) ABG Sample Site ABG pH ABG pCO2 ABG pO2 ABG HCO3 ABG Total CO2 ABG O2 Saturation ABG Base Excess FiO2 Sodium Potassium Chloride Carbon Dioxide BUN Creatinine Estimated GFR BUN/Creatinine Ratio Glucose Lactate 1.6 Calcium Total Bilirubin AST ALT Alkaline Phosphatase Total Protein Albumin Globulin Albumin/Globulin Ratio A.calcoaceticus-baumannii cmplx PCR Not detected Bacteroides fragilis Not detected Jana albicans (PCR) Not detected Jana auris (PCR) Not detected C. glabrata (PCR) Not detected C. krusei (PCR) Not detected C. parapsilosis (PCR) Not detected C. tropicalis (PCR) Not detected C. neoform/gattii (PCR) Not detected Enterobacterales (PCR) Not detected E. cloacae complex PCR Not detected Enterococc faecalis PCR Not detected Enterococc faecium PCR Not detected E. coli (PCR) Not detected H. influenzae (PCR) Not detected Klebsiella aerogenes (PCR) Not detected Klebsiella oxytoca PCR Not detected Klebsiella pneumoniae Not detected List. monocytogenes PCR Not detected N. meningitidis (PCR) Not detected Proteus species (PCR) Not detected Salmonella spp. (PCR) Not detected Serratia marcescens PCR Not detected Staphylococcus sp PCR Not detected Staph aureus (PCR) Not detected mecA/C & MREJ Resist Gene Not applicable mecA/C-Methicil Resis Gene Not applicable mcr-1 Colistin Res Gene PCR Not applicable Staph epidermidis (PCR) Not detected Staph lugdunensis PCR Not detected S. maltophilia (PCR) Not detected Streptococcus sp PCR Detected Group A Strep (PCR) Not detected Strep agalactiae (PCR) Not detected Strep pneumoniae (PCR) Not detected P. aeruginosa (PCR) Not detected Allison/B-Vanco Res Genes Not applicable blaIMP Car res Gene PCR Not applicable KPC-Carbap Res Gene PCR Not applicable blaNDM Car Res Gene PCR Not applicable OXA-48 Carbapenem Resis Gene (PCR) Not applicable blaVIM Car Res Gene PCR Not applicable CTX-M Gene Resistance (PCR) Not applicable Blood Type O Negative Antibody Screen Negative Crossmatch See Detail 07/21/23 07/22/23 07/22/23 16:55 05:01 11:17 WBC 12.8 H RBC 2.99 L Hgb 7.8 L 8.5 L Hct 23.9 L 26.1 L MCV 87.1 MCH 28.5 MCHC 32.7 RDW 15.1 H Plt Count 218 Neut % (Auto) 72.1 Lymph % (Auto) 14.5 L [place] % (Auto) 10.1 Eos % (Auto) 2.5 Baso % (Auto) 0.8 Neut # (Auto) 9200 H Lymph # (Auto) 1900 [place] # (Auto) 1300 H Eos # (Auto) 300 Baso # (Auto) 100 ABG Sample Site Right radial ABG pH 7.27 L* ABG pCO2 40.3 ABG pO2 71 L ABG HCO3 19 L ABG Total CO2 20 L ABG O2 Saturation 92 L ABG Base Excess -8.0 L FiO2 60 Sodium 138 Potassium 4.7 Chloride 111 H Carbon Dioxide 21 L BUN 58 H Creatinine 2.07 H Estimated GFR 23 L BUN/Creatinine Ratio 28.0 H Glucose 113 H D Lactate Calcium 8.4 Total Bilirubin 0.6 AST 18 ALT 11 Alkaline Phosphatase 88 Total Protein 5.7 L Albumin 3.0 L Globulin 2.7 Albumin/Globulin Ratio 1.1 A.calcoaceticus-baumannii cmplx PCR Bacteroides fragilis Jana albicans (PCR) Jana auris (PCR) C. glabrata (PCR) C. krusei (PCR) C. parapsilosis (PCR) C. tropicalis (PCR) C. neoform/gattii (PCR) Enterobacterales (PCR) E. cloacae complex PCR Enterococc faecalis PCR Enterococc faecium PCR E. coli (PCR) H. influenzae (PCR) Klebsiella aerogenes (PCR) Klebsiella oxytoca PCR Klebsiella pneumoniae List. monocytogenes PCR N. meningitidis (PCR) Proteus species (PCR) Salmonella spp. (PCR) Serratia marcescens PCR Staphylococcus sp PCR Staph aureus (PCR) mecA/C & MREJ Resist Gene mecA/C-Methicil Resis Gene mcr-1 Colist[place] Res Gene PCR Staph epidermidis (PCR) Staph lugdunensis PCR S. maltophilia (PCR) Streptococcus sp PCR Group A Strep (PCR) Strep agalactiae (PCR) Strep pneumoniae (PCR) P. aeruginosa (PCR) Allison/B-Vanco Res Genes blaIMP Car res Gene PCR KPC-Carbap Res Gene PCR blaNDM Car Res Gene PCR OXA-48 Carbapenem Resis Gene (PCR) blaVIM Car Res Gene PCR CTX-M Gene Resistance (PCR) Blood Type Antibody Screen Crossmatch 07/22/23 11:22 WBC 16.2 H RBC 2.63 L Hgb 7.5 L Hct 23.3 L MCV 88.5 MCH 28.4 MCHC 32.1 RDW 14.9 H Plt Count 245 Neut % (Auto) 80.5 H Lymph % (Auto) 8.6 L [place] % (Auto) 8.5 Eos % (Auto) 1.8 L Baso % (Auto) 0.6 Neut # (Auto) 90623 H Lymph # (Auto) 1400 [place] # (Auto) 1400 H Eos # (Auto) 300 Baso # (Auto) 100 ABG Sample Site ABG pH ABG pCO2 ABG pO2 ABG HCO3 ABG Total CO2 ABG O2 Saturation ABG Base Excess FiO2 Sodium Potassium Chloride Carbon Dioxide BUN Creatinine Estimated GFR BUN/Creatinine Ratio Glucose Lactate Calcium Total Bilirubin AST ALT Alkaline Phosphatase Total Protein Albumin Globulin Albumin/Globulin Ratio A.calcoaceticus-baumannii cmplx PCR Bacteroides fragilis Jana albicans (PCR) Jana auris (PCR) C. glabrata (PCR) C. krusei (PCR) C. parapsilosis (PCR) C. tropicalis (PCR) C. neoform/gattii (PCR) Enterobacterales (PCR) E. cloacae complex PCR Enterococc faecalis PCR Enterococc faecium PCR E. coli (PCR) H. influenzae (PCR) Klebsiella aerogenes (PCR) Klebsiella oxytoca PCR Klebsiella pneumoniae List. monocytogenes PCR N. meningitidis (PCR) Proteus species (PCR) Salmonella spp. (PCR) Serratia marcescens PCR Staphylococcus sp PCR Staph aureus (PCR) mecA/C & MREJ Resist Gene mecA/C-Methicil Resis Gene mcr-1 Colistin Res Gene PCR Staph epidermidis (PCR) Staph lugdunensis PCR S. maltophilia (PCR) Streptococcus sp PCR Group A Strep (PCR) Strep agalactiae (PCR) Strep pneumoniae (PCR) P. aeruginosa (PCR) Allison/B-Vanco Res Genes blaIMP Car res Gene PCR KPC-Carbap Res Gene PCR blaNDM Car Res Gene PCR OXA-48 Carbapenem Resis Gene (PCR) blaVIM Car Res Gene PCR CTX-M Gene Resistance (PCR) Blood Type Antibody Screen Crossmatch Assessment & Plan Assessment & Plan narrative: # Acute upper GI bleed / Acute blood loss anemia / Hemorrhagic shock: - S/p EGD today, found to have large amount of blood clots in the stomach with no evidence of active bleed. No interventions performed by GI. - Received 1 unit of PRBC overnight, and another unit ordered this morning. Follow-up posttransfusion CBC after blood transfusion. - Monitor H&H, goal to keep hemoglobin >7.0, transfuse as needed. Correct coagulopathy as needed. - On low-dose phenylephrine gtt. postprocedure. Hypotension likely sedation induced, from propofol. - Ordered Protonix 40 m IV twice daily. Continue to hold pharmacological DVT prophylaxis and anticoagulation. - Patient remained in ICU since high risk for recurrence of upper GI bleed and hemodynamic compensation. # Acute postop respiratory failure / Suspected aspiration pneumonitis/pneumonia / On mechanical assisted ventilation: - Remained intubated after EGD due to concern for aspiration of stomach contents during the procedure per anesthesia.. - Current vent settings reviewed. TV 380, rate 18, FiO2 60% and PEEP of 5. Ordered ABG, adjust vent settings as needed. - Discussed with RT, confirmed retraction of ET tube at least 3 cm after the last chest x-ray showing ET tube close to right mainstem. - C/w vent support per lung protective strategy (TV 6ml/kg by IBW, plat pressure < 30, PaO2 60-80 mm Hg, SaO2 > 92%) and c/w ABCDE bundle while intubated. - On Propofol gtt and add Fentanyl IV pushes for sedation/pain control. Goal to keep RAAS 0 to -2. - C/w daily sedation vacation (SAT) and vent weaning as tolerated. Evaluate with SAT and SBT. - Continue empiric Zosyn to cover for aspiration pending further workup. # CAYETANO superimposed on CKD: - Creatinine close to her baseline. Follow-up with serial BMP, monitor strict input and output. - Avoid nephrotoxic agents, renally dose medications. # Atrial fibrillation, controlled heart rate: - Continue to hold anticoagulation given GI bleed. # Sepsis secondary UTI / Gram-positive bacteremia: - Initial UA consistent with UTI. Urinary blood cultures x 2 with gram-positive cocci. - Follow-up on final cultures. Continue empiric Zosyn and IV vancomycin pending cultures. - Continue with IV fluids. Monitor lactic acid, urine output, mental status. # Diabetes type 2, fairly controlled: - Blood sugar now controlled, in 110s. C/w Accu-Cheks every 6 hours, sliding for insulin. BG goal 140-180. # Hypothyroidism: - Resume home dose of levothyroxine when able. ICU BUNDLE: # FEN: Currently NPO. # Glucose: fairly controlled. C/w Accu checks Q6 hours and SSI. BG goal 140-180 # Prophylaxis: SCDs for DVT prophylaxis, PPI for stress ulcer prophylaxis # Lines/tubes: PIV, [place], ET tube, OG tube # CODE STATUS: Full code # Disposition: Remains in ICU Above plan was discussed with rounding team including hospitalist, bedside RN, respiratory therapist during tele-ICU multidisciplinary rounds this morning. We will continue to follow. Please call us if any additional questions.
[2023-07-22] MEDS: INSULIN LISPRO 100 UNIT/ML 3ML VIAL SUBCUT ×2 (12:22→18:09)
[2023-07-22 12:34] LABS: MRSA (Nasal) PCR NOT DETECTED (Not Detect)
--- NOTE | 2023-07-22 12:49 | CM.DPC ---
DCP Cont: Per Surgeon, pt was taken to OR this morning for EGD scope and found large clot in the stomach from non-bleeding ulcer and no current active bleeding present but pt aspirated and was brought to ICU intubated with plan to work on extubation when medically appropriate. Pt's medical coordinator/friend Regina Atkinson (ph#[phone]) was bedside and given a brief medical update and she confirms that pt's spouse has memory issues and she is available to help with coordination if needed. Plan: SW to follow closely tomorrow once pt extubated towards ongoing coordination to determine any discharge planning needs and confirm if pt safe for return home with spouse and Caregivers. BIANCA Condon
--- NOTE | 2023-07-22 13:13 | P.PN_ITS ---
Subjective Subjective Date Patient Seen: 07/22/23 Time Patient Seen: 10:30 Interval history: Anesthesia Exam Vital Signs (past 8 hours): - 07/22/23 07:00 07/22/23 08:15 07/22/23 08:33 Temperature 97.1 F L 97.2 F L Pulse Rate 85 84 Respiratory Rate 20 16 Blood Pressure 143/70 H 114/77 Pulse Oximetry 100 100 Oxygen Delivery Method Room Air Room Air Oxygen Flow Rate 0 Fraction of Inspired Oxygen 07/22/23 10:43 07/22/23 11:00 Temperature 97.0 F L Pulse Rate 92 H Respiratory Rate 22 Blood Pressure 76/41 L Pulse Oximetry 97 Oxygen Delivery Method Oxygen Flow Rate Fraction of Inspired Oxygen 60 Fraction of Inspired Oxygen 60 Oxygen Delivery Method Room Air Oxygen Flow Rate 0 Narrative Exam Narrative: Patient seen pre-EGD. Interviewed, chart reviewed. Patient was admitted two days ago for GI bleed. Transfused x1 unit PRBCs last night, Hg 8.3 this am. States she has been having bloody stools and cramping last night. No hemoptysis since admit per patient. She does state that she vomiting once this morning, states it was green bile. States she feels hungry. Patient was sedated with propofol. EGD scope advanced and patient found to have large clot in stomach. MD instilled large amount of water to dissolve clot. Small amount of bloody water regurgitated and aspirated by patient. Patient immediately intubated, lungs suctioned; positive for blood. Patient spontaneously breathing shortly after intubation, maintaining O2 saturation >95%, FiO2 1.0, RR 20, Vt 400. Elected to leave patient intubated to ICU for close observation and support at extubation should patient fail and reintubation necessary. Patient transported monitored/sedated, BVM to ICU. Hypotensive on arrival, phenyephrine and propofol gtts for BP support and sedation initiated. Patient transferred to ventilator. FiOx2 .6, Vt 380, RR 20, PEEP 5, O2Sat 93%. Discussion with Dr. Garcia. He requests that Anesthesia be present at bedside for extubation. Report given to RN/RT. Per RN, patient contact is Regina Atkinson NP who communicates with family. Attempted to call with update and plan, no answer. Will try again later today. Will report back to ICU later this afternoon. Objective Labs 07/22/23 11:22 07/22/23 05:01 Labs: Laboratory Results - last 24 hr 07/21/23 07/21/23 07/21/23 10:50 13:00 14:22 WBC RBC Hgb 8.1 L Hct 25.0 L MCV MCH MCHC RDW Plt Count Neut % (Auto) Lymph % (Auto) [place] % (Auto) Eos % (Auto) Baso % (Auto) Neut # (Auto) Lymph # (Auto) [place] # (Auto) Eos # (Auto) Baso # (Auto) ABG Sample Site ABG pH ABG pCO2 ABG pO2 ABG HCO3 ABG Total CO2 ABG O2 Saturation ABG Base Excess FiO2 Sodium Potassium Chloride Carbon Dioxide BUN Creatinine Estimated GFR BUN/Creatinine Ratio Glucose Lactate 1.6 Calcium Total Bilirubin AST ALT Alkaline Phosphatase Total Protein Albumin Globulin Albumin/Globulin Ratio Nasal Screen MRSA (PCR) A.calcoaceticus-baumannii cmplx PCR Not detected Bacteroides fragilis Not detected Jana albicans (PCR) Not detected Jana auris (PCR) Not detected C. glabrata (PCR) Not detected C. krusei (PCR) Not detected C. parapsilosis (PCR) Not detected C. tropicalis (PCR) Not detected C. neoform/gattii (PCR) Not detected Enterobacterales (PCR) Not detected E. cloacae complex PCR Not detected Enterococc faecalis PCR Not detected Enterococc faecium PCR Not detected E. coli (PCR) Not detected H. influenzae (PCR) Not detected Klebsiella aerogenes (PCR) Not detected Klebsiella oxytoca PCR Not detected Klebsiella pneumoniae Not detected List. monocytogenes PCR Not detected N. meningitidis (PCR) Not detected Proteus species (PCR) Not detected Salmonella spp. (PCR) Not detected Serratia marcescens PCR Not detected Staphylococcus sp PCR Not detected Staph aureus (PCR) Not detected mecA/C & MREJ Resist Gene Not applicable mecA/C-Methicil Resis Gene Not applicable mcr-1 Colistin Res Gene PCR Not applicable Staph epidermidis (PCR) Not detected Staph lugdunensis PCR Not detected S. maltophilia (PCR) Not detected Streptococcus sp PCR Detected Group A Strep (PCR) Not detected Strep agalactiae (PCR) Not detected Strep pneumoniae (PCR) Not detected P. aeruginosa (PCR) Not detected Allison/B-Vanco Res Genes Not applicable blaIMP Car res Gene PCR Not applicable KPC-Carbap Res Gene PCR Not applicable blaNDM Car Res Gene PCR Not applicable OXA-48 Carbapenem Resis Gene (PCR) Not applicable blaVIM Car Res Gene PCR Not applicable CTX-M Gene Resistance (PCR) Not applicable Blood Type O Negative Antibody Screen Negative Crossmatch See Detail 07/21/23 07/22/23 07/22/23 16:55 05:01 10:47 WBC 12.8 H RBC 2.99 L Hgb 7.8 L 8.5 L Hct 23.9 L 26.1 L MCV 87.1 MCH 28.5 MCHC 32.7 RDW 15.1 H Plt Count 218 Neut % (Auto) 72.1 Lymph % (Auto) 14.5 L [place] % (Auto) 10.1 Eos % (Auto) 2.5 Baso % (Auto) 0.8 Neut # (Auto) 9200 H Lymph # (Auto) 1900 [place] # (Auto) 1300 H Eos # (Auto) 300 Baso # (Auto) 100 ABG Sample Site ABG pH ABG pCO2 ABG pO2 ABG HCO3 ABG Total CO2 ABG O2 Saturation ABG Base Excess FiO2 Sodium 138 Potassium 4.7 Chloride 111 H Carbon Dioxide 21 L BUN 58 H Creatinine 2.07 H Estimated GFR 23 L BUN/Creatinine Ratio 28.0 H Glucose 113 H D Lactate Calcium 8.4 Total Bilirubin 0.6 AST 18 ALT 11 Alkaline Phosphatase 88 Total Protein 5.7 L Albumin 3.0 L Globulin 2.7 Albumin/Globulin Ratio 1.1 Nasal Screen MRSA (PCR) Not detected A.calcoaceticus-baumannii cmplx PCR Bacteroides fragilis Jana albicans (PCR) Jana auris (PCR) C. glabrata (PCR) C. krusei (PCR) C. parapsilosis (PCR) C. tropicalis (PCR) C. neoform/gattii (PCR) Enterobacterales (PCR) E. cloacae complex PCR Enterococc faecalis PCR Enterococc faecium PCR E. coli (PCR) H. influenzae (PCR) Klebsiella aerogenes (PCR) Klebsiella oxytoca PCR Klebsiella pneumoniae List. monocytogenes PCR N. meningitidis (PCR) Proteus species (PCR) Salmonella spp. (PCR) Serratia marcescens PCR Staphylococcus sp PCR Staph aureus (PCR) mecA/C & MREJ Resist Gene mecA/C-Methicil Resis Gene mcr-1 Colistin Res Gene PCR Staph epidermidis (PCR) Staph lugdunensis PCR S. maltophilia (PCR) Streptococcus sp PCR Group A Strep (PCR) Strep agalactiae (PCR) Strep pneumoniae (PCR) P. aeruginosa (PCR) Allison/B-Vanco Res Genes blaIMP Car res Gene PCR KPC-Carbap Res Gene PCR blaNDM Car Res Gene PCR OXA-48 Carbapenem Resis Gene (PCR) blaVIM Car Res Gene PCR CTX-M Gene Resistance (PCR) Blood Type Antibody Screen Crossmatch 07/22/23 07/22/23 11:17 11:22 WBC 16.2 H RBC 2.63 L Hgb 7.5 L Hct 23.3 L MCV 88.5 MCH 28.4 MCHC 32.1 RDW 14.9 H Plt Count 245 Neut % (Auto) 80.5 H Lymph % (Auto) 8.6 L [place] % (Auto) 8.5 Eos % (Auto) 1.8 L Baso % (Auto) 0.6 Neut # (Auto) 68519 H Lymph # (Auto) 1400 [place] # (Auto) 1400 H Eos # (Auto) 300 Baso # (Auto) 100 ABG Sample Site Right radial ABG pH 7.27 L* ABG pCO2 40.3 ABG pO2 71 L ABG HCO3 19 L ABG Total CO2 20 L ABG O2 Saturation 92 L ABG Base Excess -8.0 L FiO2 60 Sodium Potassium Chloride Carbon Dioxide BUN Creatinine Estimated GFR BUN/Creatinine Ratio Glucose Lactate Calcium Total Bilirubin AST ALT Alkaline Phosphatase Total Protein Albumin Globulin Albumin/Globulin Ratio Nasal Screen MRSA (PCR) A.calcoaceticus-baumannii cmplx PCR Bacteroides fragilis Jana albicans (PCR) Jana auris (PCR) C. glabrata (PCR) C. krusei (PCR) C. parapsilosis (PCR) C. tropicalis (PCR) C. neoform/gattii (PCR) Enterobacterales (PCR) E. cloacae complex PCR Enterococc faecalis PCR Enterococc faecium PCR E. coli (PCR) H. influenzae (PCR) Klebsiella aerogenes (PCR) Klebsiella oxytoca PCR Klebsiella pneumoniae List. monocytogenes PCR N. meningitidis (PCR) Proteus species (PCR) Salmonella spp. (PCR) Serratia marcescens PCR Staphylococcus sp PCR Staph aureus (PCR) mecA/C & MREJ Resist Gene mecA/C-Methicil Resis Gene mcr-1 Colistin Res Gene PCR Staph epidermidis (PCR) Staph lugdunensis PCR S. maltophilia (PCR) Streptococcus sp PCR Group A Strep (PCR) Strep agalactiae (PCR) Strep pneumoniae (PCR) P. aeruginosa (PCR) Allison/B-Vanco Res Genes blaIMP Car res Gene PCR KPC-Carbap Res Gene PCR blaNDM Car Res Gene PCR OXA-48 Carbapenem Resis Gene (PCR) blaVIM Car Res Gene PCR CTX-M Gene Resistance (PCR) Blood Type Antibody Screen Crossmatch [facility] Medical History Noncompliant neurogenic bladder Urinary incontinence, mixed Nephrolithiasis Postmenopausal atrophic vaginitis Ureteral obstruction, left MORGAN on CPAP Obstructive uropathy History of recurrent UTI (urinary tract infection) Gross hematuria Pneumothorax Peptic ulcer disease Depression Anxiety GI bleed Calculus of kidney HTN (hypertension) Hypothyroid Surgical History History of thyroidectomy Nephrostomy status Hx of cystoscopy (08/04/19) H/O mastectomy History of hip replacement H/O gastric bypass History of back surgery Hx of bilateral cataract extraction (2012) Family History Father Seizures Mother Heart disease Diabetes mellitus Brother No significant medical problems Sister Diabetes mellitus Grandmother Diabetes mellitus Social History household members: spouse Smoking Status: Never smoker alcohol intake: never eating out: rarely or never Type(s) of exercise: none Assessment & Plan Post-op Postoperative Procedures: Procedures Operation Date: 07/22/23 09:00 Actual Procedure Side Surgeon p Esophagogastroduodenoscopy Harry Orourke MD Quality VTE Deep Vein Thrombosis/Pulmonary Embolism Present on Admission: No
--- NOTE | 2023-07-22 13:30 | P.PN_ITS ---
Subjective Subjective Interval history: 1315: To patient bedside in ICU. Patient remains on small phenyephrine dose and propofol dose for BP support and sedation. Kaylensyn runnning. AC Vt 380, RR 18, FiO2 .4, PEEP 5. Maintaining O2sat >95%. Patient follows commands and appears comfortable and in no distress. Patient scheduled for PICC line placement at 1430 at which time RN will transfuse PRBCs. Dr. Garcia not in house, Tele-doctor managing patient. After discussion with RN and RT, we elect to wait for PICC line placement, PRBCs infusion to hopefully stabilize BP, titrate pressor off. Will attempt breathing trial if stable and make decision regarding extubation. With no MD support at bedside, may elect to remain intubated until morning. Another attempt to contact Regina Atkinson unsuccessful. Exam Vital Signs (past 8 hours): - 07/22/23 07:00 07/22/23 08:15 07/22/23 08:33 Temperature 97.1 F L 97.2 F L Pulse Rate 85 84 Respiratory Rate 20 16 Blood Pressure 143/70 H 114/77 Pulse Oximetry 100 100 Oxygen Delivery Method Room Air Room Air Oxygen Flow Rate 0 Fraction of Inspired Oxygen 07/22/23 10:43 07/22/23 11:00 07/22/23 13:11 Temperature 97.0 F L Pulse Rate 92 H Respiratory Rate 22 Blood Pressure 76/41 L Pulse Oximetry 97 Oxygen Delivery Method Mechanical Ventilation Oxygen Flow Rate Fraction of Inspired Oxygen 60 Fraction of Inspired Oxygen 60 Oxygen Delivery Method Mechanical Ventilation Oxygen Flow Rate 0 Objective Labs 07/22/23 11:22 07/22/23 05:01 Labs: Laboratory Results - last 24 hr 07/21/23 07/21/23 07/21/23 10:50 14:22 16:55 WBC RBC Hgb 7.8 L Hct 23.9 L MCV MCH MCHC RDW Plt Count Neut % (Auto) Lymph % (Auto) [place] % (Auto) Eos % (Auto) Baso % (Auto) Neut # (Auto) Lymph # (Auto) [place] # (Auto) Eos # (Auto) Baso # (Auto) ABG Sample Site ABG pH ABG pCO2 ABG pO2 ABG HCO3 ABG Total CO2 ABG O2 Saturation ABG Base Excess FiO2 Sodium Potassium Chloride Carbon Dioxide BUN Creatinine Estimated GFR BUN/Creatinine Ratio Glucose Calcium Total Bilirubin AST ALT Alkaline Phosphatase Total Protein Albumin Globulin Albumin/Globulin Ratio Nasal Screen MRSA (PCR) A.calcoaceticus-baumannii cmplx PCR Not detected Bacteroides fragilis Not detected Jana albicans (PCR) Not detected Jana auris (PCR) Not detected C. glabrata (PCR) Not detected C. krusei (PCR) Not detected C. parapsilosis (PCR) Not detected C. tropicalis (PCR) Not detected C. neoform/gattii (PCR) Not detected Enterobacterales (PCR) Not detected E. cloacae complex PCR Not detected Enterococc faecalis PCR Not detected Enterococc faecium PCR Not detected E. coli (PCR) Not detected H. influenzae (PCR) Not detected Klebsiella aerogenes (PCR) Not detected Klebsiella oxytoca PCR Not detected Klebsiella pneumoniae Not detected List. monocytogenes PCR Not detected N. meningitidis (PCR) Not detected Proteus species (PCR) Not detected Salmonella spp. (PCR) Not detected Serratia marcescens PCR Not detected Staphylococcus sp PCR Not detected Staph aureus (PCR) Not detected mecA/C & MREJ Resist Gene Not applicable mecA/C-Methicil Resis Gene Not applicable mcr-1 Colistin Res Gene PCR Not applicable Staph epidermidis (PCR) Not detected Staph lugdunensis PCR Not detected S. maltophilia (PCR) Not detected Streptococcus sp PCR Detected Group A Strep (PCR) Not detected Strep agalactiae (PCR) Not detected Strep pneumoniae (PCR) Not detected P. aeruginosa (PCR) Not detected Allison/B-Vanco Res Genes Not applicable blaIMP Car res Gene PCR Not applicable KPC-Carbap Res Gene PCR Not applicable blaNDM Car Res Gene PCR Not applicable OXA-48 Carbapenem Resis Gene (PCR) Not applicable blaVIM Car Res Gene PCR Not applicable CTX-M Gene Resistance (PCR) Not applicable Blood Type O Negative Antibody Screen Negative Crossmatch See Detail 07/22/23 07/22/23 07/22/23 05:01 10:47 11:17 WBC 12.8 H RBC 2.99 L Hgb 8.5 L Hct 26.1 L MCV 87.1 MCH 28.5 MCHC 32.7 RDW 15.1 H Plt Count 218 Neut % (Auto) 72.1 Lymph % (Auto) 14.5 L [place] % (Auto) 10.1 Eos % (Auto) 2.5 Baso % (Auto) 0.8 Neut # (Auto) 9200 H Lymph # (Auto) 1900 [place] # (Auto) 1300 H Eos # (Auto) 300 Baso # (Auto) 100 ABG Sample Site Right radial ABG pH 7.27 L* ABG pCO2 40.3 ABG pO2 71 L ABG HCO3 19 L ABG Total CO2 20 L ABG O2 Saturation 92 L ABG Base Excess -8.0 L FiO2 60 Sodium 138 Potassium 4.7 Chloride 111 H Carbon Dioxide 21 L BUN 58 H Creatinine 2.07 H Estimated GFR 23 L BUN/Creatinine Ratio 28.0 H Glucose 113 H D Calcium 8.4 Total Bilirubin 0.6 AST 18 ALT 11 Alkaline Phosphatase 88 Total Protein 5.7 L Albumin 3.0 L Globulin 2.7 Albumin/Globulin Ratio 1.1 Nasal Screen MRSA (PCR) Not detected A.calcoaceticus-baumannii cmplx PCR Bacteroides fragilis Jana albicans (PCR) Jana auris (PCR) C. glabrata (PCR) C. krusei (PCR) C. parapsilosis (PCR) C. tropicalis (PCR) C. neoform/gattii (PCR) Enterobacterales (PCR) E. cloacae complex PCR Enterococc faecalis PCR Enterococc faecium PCR E. coli (PCR) H. influenzae (PCR) Klebsiella aerogenes (PCR) Klebsiella oxytoca PCR Klebsiella pneumoniae List. monocytogenes PCR N. meningitidis (PCR) Proteus species (PCR) Salmonella spp. (PCR) Serratia marcescens PCR Staphylococcus sp PCR Staph aureus (PCR) mecA/C & MREJ Resist Gene mecA/C-Methicil Resis Gene mcr-1 Colistin Res Gene PCR Staph epidermidis (PCR) Staph lugdunensis PCR S. maltophilia (PCR) Streptococcus sp PCR Group A Strep (PCR) Strep agalactiae (PCR) Strep pneumoniae (PCR) P. aeruginosa (PCR) Allison/B-Vanco Res Genes blaIMP Car res Gene PCR KPC-Carbap Res Gene PCR blaNDM Car Res Gene PCR OXA-48 Carbapenem Resis Gene (PCR) blaVIM Car Res Gene PCR CTX-M Gene Resistance (PCR) Blood Type Antibody Screen Crossmatch 07/22/23 11:22 WBC 16.2 H RBC 2.63 L Hgb 7.5 L Hct 23.3 L MCV 88.5 MCH 28.4 MCHC 32.1 RDW 14.9 H Plt Count 245 Neut % (Auto) 80.5 H Lymph % (Auto) 8.6 L [place] % (Auto) 8.5 Eos % (Auto) 1.8 L Baso % (Auto) 0.6 Neut # (Auto) 78705 H Lymph # (Auto) 1400 [place] # (Auto) 1400 H Eos # (Auto) 300 Baso # (Auto) 100 ABG Sample Site ABG pH ABG pCO2 ABG pO2 ABG HCO3 ABG Total CO2 ABG O2 Saturation ABG Base Excess FiO2 Sodium Potassium Chloride Carbon Dioxide BUN Creatinine Estimated GFR BUN/Creatinine Ratio Glucose Calcium Total Bilirubin AST ALT Alkaline Phosphatase Total Protein Albumin Globulin Albumin/Globulin Ratio Nasal Screen MRSA (PCR) A.calcoaceticus-baumannii cmplx PCR Bacteroides fragilis Jana albicans (PCR) Jana auris (PCR) C. glabrata (PCR) C. krusei (PCR) C. parapsilosis (PCR) C. tropicalis (PCR) C. neoform/gattii (PCR) Enterobacterales (PCR) E. cloacae complex PCR Enterococc faecalis PCR Enterococc faecium PCR E. coli (PCR) H. influenzae (PCR) Klebsiella aerogenes (PCR) Klebsiella oxytoca PCR Klebsiella pneumoniae List. monocytogenes PCR N. meningitidis (PCR) Proteus species (PCR) Salmonella spp. (PCR) Serratia marcescens PCR Staphylococcus sp PCR Staph aureus (PCR) mecA/C & MREJ Resist Gene mecA/C-Methicil Resis Gene mcr-1 Colistin Res Gene PCR Staph epidermidis (PCR) Staph lugdunensis PCR S. maltophilia (PCR) Streptococcus sp PCR Group A Strep (PCR) Strep agalactiae (PCR) Strep pneumoniae (PCR) P. aeruginosa (PCR) Allison/B-Vanco Res Genes blaIMP Car res Gene PCR KPC-Carbap Res Gene PCR blaNDM Car Res Gene PCR OXA-48 Carbapenem Resis Gene (PCR) blaVIM Car Res Gene PCR CTX-M Gene Resistance (PCR) Blood Type Antibody Screen Crossmatch [facility] Medical History Noncompliant neurogenic bladder Urinary incontinence, mixed Nephrolithiasis Postmenopausal atrophic vaginitis Ureteral obstruction, left MORGAN on CPAP Obstructive uropathy History of recurrent UTI (urinary tract infection) Gross hematuria Pneumothorax Peptic ulcer disease Depression Anxiety GI bleed Calculus of kidney HTN (hypertension) Hypothyroid Surgical History History of thyroidectomy Nephrostomy status Hx of cystoscopy (08/04/19) H/O mastectomy History of hip replacement H/O gastric bypass History of back surgery Hx of bilateral cataract extraction (2012) Family History Father Seizures Mother Heart disease Diabetes mellitus Brother No significant medical problems Sister Diabetes mellitus Grandmother Diabetes mellitus Social History household members: spouse Smoking Status: Never smoker alcohol intake: never eating out: rarely or never Type(s) of exercise: none Assessment & Plan Post-op Postoperative Procedures: Procedures Operation Date: 07/22/23 09:00 Actual Procedure Side Surgeon p Esophagogastroduodenoscopy Harry Orourke MD Quality VTE Deep Vein Thrombosis/Pulmonary Embolism Present on Admission: No
[2023-07-22] MEDS: PANTOPRAZOLE 40 MG VIAL IV (13:50)
[2023-07-22] MEDS: CHLORHEXIDINE GLUCONATE 15 ML CUP PO ×3 (14:54→23:42)
[2023-07-22] MEDS: propofoL 1,000 MG/100 ML VIAL 23.5 MG IV (15:36)
--- NOTE | 2023-07-22 16:06 | DI.RAD.S_ITS ---
PROCEDURE: XR CHEST 1V INDICATIONS: check line placement TECHNIQUE: One view of the chest was acquired. COMPARISON: [facility], CR, XR CHEST 1V, 07/22/2023, 10:29. FINDINGS: Surgical changes and devices: ET tube is appropriately positioned. Enteric tube courses below the diaphragm with side port within the gastric bubble. Interval placement of right subclavian central line with tip projecting over the atria. Lungs and pleura: Diffuse airspace opacities throughout the left lung most prominent basilar regions with mild improved aeration. No pneumothorax. Probable left pleural effusion. Mediastinum: Mediastinal contours are obscured. Heart size is enlarged. Bones and chest wall: No suspicious bony lesions. Overlying soft tissues appear unremarkable. IMPRESSION: Right subclavian line with tip projecting over the atria. Additional support devices as above. Mildly improved left lung aeration. Dictated by: Brady Alcocer M.D. on 07/22/2023 at 15:43 Approved by: Brady Alcocer M.D. on 07/22/2023 at 15:47
[2023-07-22 17:35] LABS: BUN Creatinine Ratio 30.2 (6-22); Blood Urea Nitrogen 61 mg/dL (7-17); Calcium 7.5 mg/dL (8.4-10.2); Carbon Dioxide 22 mmol/L (22-32); Chloride 113 mmol/L (98-107); Estimated Glomerular Filt Rate 23 mL/min (>60); Glucose 159 mg/dL (80-110); HEMOLYSIS < 15 (0-50); Potassium 4.9 mmol/L (3.4-5.1); Sodium 139 mmol/L (137-145)
[2023-07-22 17:37] LABS: Hematocrit 23.4 % (36-46); Hemoglobin 7.7 g/dL (12.0-16.0); Mean Corpuscular HGB Conc 32.7 % (30-36); Mean Corpuscular Hemoglobin 29.1 PG (26-34); Platelet Count 214 X10^3/uL (150-400); Red Blood Cell Count 2.63 X10^6/uL (4.0-5.2); Red Cell Distribution Width 14.8 % (11.6-14.8); White Blood Cell Count 25.1 X10^3/uL (4.5-11.0)
[2023-07-22 17:38] LABS: Add Manual Diff / Slide Review YES
[2023-07-22 18:26] LABS: Neutrophils Absolute Manual 22339 /uL (3000-5900); Total Cells Counted 100
[2023-07-22 18:27] LABS: RBC Morphology Normal Morphology
--- NOTE | 2023-07-22 19:09 | PM.ICURNDS ---
- :: This patient was seen via real time interactive two-way audiovisual telecommunication. Note: [facility] TELE-ELECTROMEDICAL EQUIPMENT TECHNICIAN MULTIDISCIPLINARY ROUNDS NOTE Patient seen via two-way interactive audiovisual telecommunication. Most recent labs, imaging studies, current treatment plan reviewed with the bedside team. Patient remains intubated, on stable vent settings. Most recent ABG reviewed. Order a f/up ABG now, adjust vent settings as needed. Added Fentanyl IV pushes PRN to minimize use of propofol as she remains hypotensive and requiring low dose phenylephrine gtt. now down to 15 mcg/min. Still appears to be bleeding (OG tube with bloody output, has malenotic stools per RN) although &H relatively stable at 7.7. Discussed w/ Bedside RN and charge nurse. Jason Linares MD eICU, Critical Care Medicine
[2023-07-22] MEDS: propofoL 1,000 MG/100 ML VIAL 23.88 MG IV ×2 (19:53→23:47)
[2023-07-22 22:34] LABS: Fractionated Inspired Oxygen 96; HCO3 ABG 20 mmol/L (23-27); Oxygen Saturation ABG 92 % (95-100); PO2 ABG 65 mmHg (80-100); TCO2 ABG 21 mmol/L (23-27); pH ABG 7.37 (7.35-7.45)
[2023-07-22 22:35] LABS: Allen Test for ABG Passed? Yes, Passed; Blood Gas Collection Site Right Radial
[2023-07-22 23:48] LABS: Add Manual Diff / Slide Review NO; Basophils Absolute Auto 100 /uL (0-100); Basophils Percent Auto 0.3 % (0-2); Eosinophils Absolute Auto 100 /uL (0-450); Eosinophils Percent Auto 0.3 % (2-4); Lymphocytes Absolute Auto 1000 /uL (1100-4500); Lymphocytes Percent Auto 4.4 % (25-40); Mean Corpuscular HGB Conc 33.2 % (30-36); Mean Corpuscular Volume 87.3 fL (80-100); Monocytes Absolute Auto 1300 /uL (0-900); Monocytes Percent Auto 5.9 % (3-14); Neutrophils Absolute Auto 19400 /uL (1500-7000); Neutrophils Percent Auto 89.1 % (50-75); Platelet Count 172 X10^3/uL (150-400); Red Blood Cell Count 2.35 X10^6/uL (4.0-5.2); Red Cell Distribution Width 14.8 % (11.6-14.8); White Blood Cell Count 21.8 X10^3/uL (4.5-11.0)
[2023-07-22 23:49] LABS: Hemoglobin 6.8 g/dL (12.0-16.0)
[2023-07-22 23:50] LABS: Hematocrit 20.5 % (36-46)
[2023-07-23] VITALS (56 sets, daily range): BP systolic 100–137; BP diastolic 48–65; PULSE 74–85; RESP 0–28; TEMP 36.3–36.7; O2SAT 94–100
[2023-07-23 03:29] LABS: Hematocrit 23.5 % (36-46); Hemoglobin 7.9 g/dL (12.0-16.0); Mean Corpuscular HGB Conc 33.6 % (30-36); Mean Corpuscular Volume 86.3 fL (80-100); Platelet Count 167 X10^3/uL (150-400); Red Blood Cell Count 2.73 X10^6/uL (4.0-5.2); Red Cell Distribution Width 15.2 % (11.6-14.8); White Blood Cell Count 22.9 X10^3/uL (4.5-11.0)
[2023-07-23 03:48] LABS: Alanine Aminotransferase 8 IU/L (<35); Alkaline Phosphatase 60 U/L (38-126); Aspartate Aminotransferase 14 IU/L (14-36); BUN Creatinine Ratio 32.3 (6-22); Bilirubin Total 0.8 mg/dL (0.2-1.3); Blood Urea Nitrogen 65 mg/dL (7-17); Calcium 7.1 mg/dL (8.4-10.2); Carbon Dioxide 21 mmol/L (22-32); Chloride 117 mmol/L (98-107); Estimated Glomerular Filt Rate 24 mL/min (>60); Glucose 162 mg/dL (80-110); HEMOLYSIS < 15 (0-50); Potassium 4.6 mmol/L (3.4-5.1); Sodium 140 mmol/L (137-145)
[2023-07-23] MEDS: PIPERACILLIN/TAZO 3.375 GM in SODIUM CHLORIDE 0.9% 100 ML IV ×2 (04:24→10:19)
[2023-07-23] MEDS: propofoL 1,000 MG/100 ML VIAL 23.88 MG IV (04:29)
[2023-07-23] MEDS: SODIUM CHLORIDE 0.9% 1,000 ML 125 ML IV (04:57)
[2023-07-23] MEDS: CHLORHEXIDINE GLUCONATE 15 ML CUP PO (05:33)
[2023-07-23] MEDS: INSULIN LISPRO 100 UNIT/ML 3ML VIAL SUBCUT (05:42)
[2023-07-23] MEDS: PANTOPRAZOLE 40 MG VIAL IV (08:43)
[2023-07-23] MEDS: propofoL 1,000 MG/100 ML VIAL 17.91 MG IV ×2 (08:55→12:16)
[2023-07-23 09:38] LABS: Add Manual Diff / Slide Review NO; Basophils Absolute Auto 100 /uL (0-100); Basophils Percent Auto 0.4 % (0-2); Eosinophils Absolute Auto 200 /uL (0-450); Eosinophils Percent Auto 1.4 % (2-4); Hematocrit 23.2 % (36-46); Lymphocytes Absolute Auto 1600 /uL (1100-4500); Lymphocytes Percent Auto 9.7 % (25-40); Mean Corpuscular HGB Conc 34.3 % (30-36); Mean Corpuscular Hemoglobin 29.6 PG (26-34); Mean Corpuscular Volume 86.2 fL (80-100); Monocytes Absolute Auto 1400 /uL (0-900); Monocytes Percent Auto 8.3 % (3-14); Neutrophils Absolute Auto 13500 /uL (1500-7000); Neutrophils Percent Auto 80.2 % (50-75); Platelet Count 142 X10^3/uL (150-400); Red Cell Distribution Width 15.5 % (11.6-14.8); White Blood Cell Count 16.9 X10^3/uL (4.5-11.0)
[2023-07-23 09:45] LABS: BUN Creatinine Ratio 35.4 (6-22); Blood Urea Nitrogen 58 mg/dL (7-17); Calcium 6.5 mg/dL (8.4-10.2); Carbon Dioxide 18 mmol/L (22-32); Chloride 121 mmol/L (98-107); Estimated Glomerular Filt Rate 30 mL/min (>60); Glucose 109 mg/dL (80-110); HEMOLYSIS < 15 (0-50); Sodium 140 mmol/L (137-145)
[2023-07-23] MEDS: fentaNYL 100 MCG/2 ML INJ 50 MCG IV ×2 (10:17→12:02)
[2023-07-23 10:34] LABS: INR 1.2 (0.9-1.3)
[2023-07-23 10:37] LABS: PTT Partial Thromboplastin Tim 30 SECONDS (25.1-36.5)
--- NOTE | 2023-07-23 10:38 | PM.PN.EICU ---
Subjective Subjective IF CAMERA ACTIVATED, patient seen via real-time interactive audiovisual communication: Camera activated Consent obtained for tele-aircraft accessories mechanic care: Yes Patient Location: ICU Provider location (State): [place] Other participants/roles: RN Interval history: pt requird 3 units prbc povernight, still with bleeding per report given to me. plan is to trasnfer when able Current Medications Current Medications Medications: Home Medications aspirin 81 mg chewable tablet 81 mg PO QDAY ##0 01/31/16 [History Confirmed 07/21/23] gabapentin 300 mg capsule (Neurontin) 300 mg PO TID ##0 01/31/16 [History Confirmed 07/21/23] levothyroxine 100 mcg tablet 100 mcg PO QAM ##0 01/31/16 [History Confirmed 07/21/23] metoprolol succinate 50 mg tablet,extended release 24 hr 50 mg PO DAILY 08/04/19 [History Confirmed 07/21/23] tramadol 50 mg tablet 50 mg PO Q6H PRN pain #10 tabs 09/06/20 [Rx Confirmed 07/21/23] ospemifene 60 mg tablet (Osphena) See Rx Instructions .Route .COMPLEX #90 tabs 10/18/20 [Rx Confirmed 07/21/23] sodium chloride 0.9 % (flush) (BD PosiFlush Normal Saline 0.9 % injection syringe) 5 ml intra-catheter Q12H Flush each nephrostomy tube with 5 ml twice daily #1,000 mL 11/10/20 [Rx Confirmed 07/21/23] y-site line connector, closed #1 ea 11/10/20 [Rx Confirmed 07/21/23] L.acidophilus-L.bulgar-B.bifid-S.thermoph 1 billion cell-250 mg tablet 2 tab PO DAILY 06/15/23 [History Confirmed 07/21/23] atorvastatin 40 mg tablet 40 mg PO DAILY 07/21/23 [History Confirmed 07/21/23] hydroxyzine HCl 25 mg tablet 25 mg PO DAILY 07/21/23 [History Confirmed 07/21/23] meloxicam 15 mg tablet 15 mg PO DAILY 07/21/23 [History Confirmed 07/21/23] Visit Medications (administered) Generic Name Dose Route Start Last Admin Trade Name Freq PRN Reason Stop Dose Admin Atorvastatin Calcium 40 mg 07/22/23 09:00 07/23/23 07:49 Atorvastatin 20 Mg Tablet PO Not Given DAILY [facility] Chlorhexidine Gluconate 15 ml 07/22/23 12:00 07/23/23 05:33 Chlorhexidine Gluconate 15 Ml Cup PO 15 ml Q6HR EDMOND Administration Citalopram Hydrobromide 10 mg 07/21/23 18:45 07/23/23 08:47 Citalopram 10 Mg Tablet PO Not Given DAILY [facility] Fentanyl 50 mcg 07/22/23 11:49 07/23/23 10:17 Fentanyl 100 Mcg/2 Ml Inj IV 50 mcg Q1H PRN Administration Pain, Severe (7-10) Gabapentin 300 mg 07/21/23 21:00 07/23/23 08:47 Gabapentin 300 Mg Capsule PO Not Given TID [facility] Heparin Sodium (Porcine) 50 unit 07/22/23 21:00 07/23/23 08:43 Heparin Flush (Cl/Picc/Mid-Line) 50 Unit/5 Ml Syringe IV 50 unit BID EDMOND Administration Sodium Chloride 1,000 mls @ 125 mls/hr 07/22/23 10:15 07/23/23 04:57 Normal Saline 0.9% IV 125 mls/hr CONT EDMOND Administration Propofol 1,000 mg in 100 mls @ 2.985 mls/hr 07/22/23 10:15 07/23/23 10:20 Propofol IV 30 mcg/kg/min TITRATE EDMOND 17.91 mls/hr Titration Protocol 5 MCG/KG/MIN Piperacillin Sod/Tazobactam 100 mls @ 25 mls/hr 07/22/23 11:00 07/23/23 10:19 Sod 3.375 gm/ Sodium Chloride IV 25 mls/hr Q8H EDMOND Administration Phenylephrine HCl 20,000 mcg/ 250 mls @ 75 mls/hr 07/22/23 10:30 07/23/23 06:05 Dextrose IV 0 mcg/min TITRATE EDMOND 0 mls/hr Titration Protocol 100 MCG/MIN Propofol 1,000 mg in 100 mls @ 2.985 mls/hr 07/22/23 10:30 07/22/23 10:44 Propofol IV Not Given TITRATE EDMOND Protocol 5 MCG/KG/MIN Insulin Human Lispro 0 unit 07/22/23 18:00 07/23/23 05:42 Insulin Lispro 100 Unit/Ml 3ml Vial SUBCUT 1 unit Q6H EDMOND Administration Protocol Levothyroxine Sodium 100 mcg 07/21/23 18:45 07/23/23 07:49 Levothyroxine 100 Mcg Tablet PO Not Given QACBREAK EDMOND Metoprolol Succinate 50 mg 07/22/23 09:00 07/23/23 08:47 Metoprolol Er 50 Mg Tablet PO Not Given DAILY EDMOND Pantoprazole Sodium 40 mg 07/22/23 09:00 07/23/23 08:43 Pantoprazole 40 Mg Vial IV 40 mg DAILY EDMOND Administration Polyethylene Glycol 17 gm 07/22/23 09:00 07/23/23 08:47 Polyethylene Glycol 3350 17 Gm Powd.Pack PO Not Given DAILY EDMOND Objective Ventilator Parameters: Ventilator Settings FiO2 30 RT Vent Frequency 18 Ventilator Tidal Volume 380 Exhaled Positive End Expiratory 5 Pressure Ventilator Pressure Support 10 Inspiratory Phase Time 0.8 I:E Ratio 1:2.4 Patient Position HOB >= 30 degrees Labs 07/23/23 09:20 07/23/23 09:20 Labs: Laboratory Results - last 24 hr 07/21/23 07/22/23 07/22/23 10:50 10:47 11:17 WBC RBC Hgb Hct MCV MCH MCHC RDW Plt Count Neut % (Auto) Lymph % (Auto) [place] % (Auto) Eos % (Auto) Baso % (Auto) Neut # (Auto) Lymph # (Auto) [place] # (Auto) Eos # (Auto) Baso # (Auto) Total Counted Seg Neutrophils % Band Neutrophils % Lymphocytes % (Manual) Monocytes % (Manual) Neutrophils # (Manual) RBC Morphology ABG Sample Site Right radial ABG pH 7.27 L* ABG pCO2 40.3 ABG pO2 71 L ABG HCO3 19 L ABG Total CO2 20 L ABG O2 Saturation 92 L ABG Base Excess -8.0 L FiO2 60 Sodium Potassium Chloride Carbon Dioxide BUN Creatinine Estimated GFR BUN/Creatinine Ratio Glucose Calcium Total Bilirubin AST ALT Alkaline Phosphatase Total Protein Albumin Globulin Albumin/Globulin Ratio Nasal Screen MRSA (PCR) Not detected Blood Type O Negative Antibody Screen Negative Crossmatch See Detail 07/22/23 07/22/23 07/22/23 11:22 17:10 20:44 WBC 16.2 H 25.1 H D RBC 2.63 L 2.63 L Hgb 7.5 L 7.7 L Hct 23.3 L 23.4 L MCV 88.5 89.0 MCH 28.4 29.1 MCHC 32.1 32.7 RDW 14.9 H 14.8 Plt Count 245 214 Neut % (Auto) 80.5 H Not Reportable Lymph % (Auto) 8.6 L Not Reportable Bound[place] % (Auto) 8.5 Not Reportable Eos % (Auto) 1.8 L Not Reportable Baso % (Auto) 0.6 Not Reportable Neut # (Auto) 24496 H Lymph # (Auto) 1400 Not Reportable [place] # (Auto) 1400 H Not Reportable Eos # (Auto) 300 Baso # (Auto) 100 Not Reportable Total Counted 100 Seg Neutrophils % 85.0 H Band Neutrophils % 4.0 Lymphocytes % (Manual) 1.0 L Monocytes % (Manual) 10.0 Neutrophils # (Manual) 19653 H RBC Morphology Normal morphology ABG Sample Site Right radial ABG pH 7.37 ABG pCO2 35.0 ABG pO2 65 L ABG HCO3 20 L ABG Total CO2 21 L ABG O2 Saturation 92 L ABG Base Excess -5.0 L FiO2 96 Sodium 139 Potassium 4.9 Chloride 113 H Carbon Dioxide 22 BUN 61 H Creatinine 2.02 H Estimated GFR 23 L BUN/Creatinine Ratio 30.2 H Glucose 159 H Calcium 7.5 L Total Bilirubin AST ALT Alkaline Phosphatase Total Protein Albumin Globulin Albumin/Globulin Ratio Nasal Screen MRSA (PCR) Blood Type Antibody Screen Crossmatch 07/22/23 07/23/23 07/23/23 23:30 03:26 09:20 WBC 21.8 H 22.9 H 16.9 H RBC 2.35 L 2.73 L 2.70 L Hgb 6.8 L* 7.9 L 8.0 L Hct 20.5 L* 23.5 L 23.2 L MCV 87.3 86.3 86.2 MCH 29.0 29.0 29.6 MCHC 33.2 33.6 34.3 RDW 14.8 15.2 H 15.5 H Plt Count 172 167 142 L Neut % (Auto) 89.1 H 80.2 H Lymph % (Auto) 4.4 L 9.7 L Bound[place] % (Auto) 5.9 8.3 Eos % (Auto) 0.3 L 1.4 L Baso % (Auto) 0.3 0.4 Neut # (Auto) 44341 H 84180 H Lymph # (Auto) 1000 L 1600 [place] # (Auto) 1300 H 1400 H Eos # (Auto) 100 200 Baso # (Auto) 100 100 Total Counted Seg Neutrophils % Band Neutrophils % Lymphocytes % (Manual) Monocytes % (Manual) Neutrophils # (Manual) RBC Morphology ABG Sample Site ABG pH ABG pCO2 ABG pO2 ABG HCO3 ABG Total CO2 ABG O2 Saturation ABG Base Excess FiO2 Sodium 140 140 Potassium 4.6 4.0 Chloride 117 H 121 H Carbon Dioxide 21 L 18 L BUN 65 H 58 H Creatinine 2.01 H 1.64 H Estimated GFR 24 L 30 L BUN/Creatinine Ratio 32.3 H 35.4 H Glucose 162 H 109 Calcium 7.1 L 6.5 L Total Bilirubin 0.8 AST 14 ALT 8 Alkaline Phosphatase 60 Total Protein 4.0 L Albumin 2.0 L Globulin 2.0 Albumin/Globulin Ratio 1.0 Nasal Screen MRSA (PCR) Blood Type Antibody Screen Crossmatch Exam Vital Signs (past 8 hours): - 07/23/23 02:45 07/23/23 02:45 07/23/23 03:00 Temperature Pulse Rate 83 81 Respiratory Rate 18 18 Blood Pressure 110/50 L Pulse Oximetry 97 97 Oxygen Delivery Method 07/23/23 03:00 07/23/23 03:15 07/23/23 03:15 Temperature Pulse Rate 82 Respiratory Rate 18 Blood Pressure 111/52 L 106/49 L Pulse Oximetry 97 Oxygen Delivery Method 07/23/23 03:30 07/23/23 03:30 07/23/23 03:45 Temperature Pulse Rate 78 Respiratory Rate 18 Blood Pressure 115/57 L 113/56 L Pulse Oximetry 95 Oxygen Delivery Method 07/23/23 03:45 07/23/23 04:00 07/23/23 04:00 Temperature Pulse Rate 77 77 Respiratory Rate 18 18 Blood Pressure 112/54 L Pulse Oximetry 96 96 Oxygen Delivery Method 07/23/23 04:15 07/23/23 04:15 07/23/23 04:30 Temperature Pulse Rate 79 78 Respiratory Rate 18 18 Blood Pressure 118/57 L Pulse Oximetry 96 97 Oxygen Delivery Method 07/23/23 04:30 07/23/23 04:45 07/23/23 04:45 Temperature Pulse Rate 74 Respiratory Rate 18 Blood Pressure 119/55 L 123/58 L Pulse Oximetry 96 Oxygen Delivery Method 07/23/23 05:00 07/23/23 05:00 07/23/23 05:00 Temperature Pulse Rate 77 Respiratory Rate 18 Blood Pressure 125/58 L Pulse Oximetry 96 Oxygen Delivery Method Mechanical Ventilation 07/23/23 05:15 07/23/23 05:15 07/23/23 05:30 Temperature 97.5 F L Pulse Rate 77 75 Respiratory Rate 18 20 Blood Pressure 129/58 L 135/60 Pulse Oximetry 97 Oxygen Delivery Method 07/23/23 05:30 07/23/23 05:30 07/23/23 05:37 Temperature 97.6 F Pulse Rate 75 74 Respiratory Rate 19 19 Blood Pressure 135/60 128/57 L Pulse Oximetry 96 Oxygen Delivery Method 07/23/23 05:40 07/23/23 05:40 07/23/23 05:45 Temperature Pulse Rate 74 Respiratory Rate 20 Blood Pressure 128/57 L 127/58 L Pulse Oximetry 97 Oxygen Delivery Method 07/23/23 05:45 07/23/23 06:00 07/23/23 06:00 Temperature Pulse Rate 74 76 Respiratory Rate 20 19 Blood Pressure 130/59 L Pulse Oximetry 96 96 Oxygen Delivery Method 07/23/23 06:15 07/23/23 06:15 07/23/23 06:30 Temperature Pulse Rate 77 79 Respiratory Rate 20 20 Blood Pressure 120/55 L Pulse Oximetry 96 95 Oxygen Delivery Method 07/23/23 06:30 07/23/23 06:49 07/23/23 06:49 Temperature Pulse Rate 78 Respiratory Rate 21 Blood Pressure 124/60 117/55 L Pulse Oximetry 94 Oxygen Delivery Method 07/23/23 07:00 07/23/23 07:30 07/23/23 07:33 Temperature 97.7 F 98.0 F Pulse Rate 78 80 79 Respiratory Rate 20 19 19 Blood Pressure 117/55 L Pulse Oximetry 95 96 Oxygen Delivery Method 07/23/23 08:00 07/23/23 08:30 07/23/23 09:00 Temperature Pulse Rate 80 78 Respiratory Rate 18 20 Blood Pressure Pulse Oximetry 96 96 Oxygen Delivery Method Mechanical Ventilation 07/23/23 09:00 07/23/23 09:23 07/23/23 09:23 Temperature Pulse Rate 79 78 Respiratory Rate 21 23 Blood Pressure 125/63 125/63 Pulse Oximetry 97 97 Oxygen Delivery Method 07/23/23 09:30 07/23/23 09:30 07/23/23 09:45 Temperature Pulse Rate 81 82 Respiratory Rate 22 23 Blood Pressure 120/60 Pulse Oximetry 97 97 Oxygen Delivery Method 07/23/23 09:45 07/23/23 10:00 07/23/23 10:00 Temperature Pulse Rate 83 Respiratory Rate 23 Blood Pressure 130/60 125/59 L Pulse Oximetry 97 Oxygen Delivery Method Fraction of Inspired Oxygen 60 Oxygen Delivery Method Mechanical Ventilation Oxygen Flow Rate 0 Narrative Exam Narrative: intubated sedated symmetric chest rise synchronous bloody output Quality TeleICU VTE Deep Vein Thrombosis/Pulmonary Embolism Present on Admission: No Assessment & Plan Assessment & Plan narrative: # Acute upper GI bleed / Acute blood loss anemia / Hemorrhagic shock: - S/p EGD, found to have large amount of blood clots in the stomach with no evidence of active bleed. No interventions performed by GI. - Received 3 unit of PRBC overnight, and another unit ordered this morning. Follow-up posttransfusion CBC after blood transfusion. - Monitor H&H, goal to keep hemoglobin >7.0, transfuse as needed. Correct coagulopathy as needed. - continue PPI - Given conitued bleeding, pt will need tranfer for emergetn CTA and IR intervention - repeat coags and fibrinogen, # Acute postop respiratory failure / Suspected aspiration pneumonitis/pneumonia / On mechanical assisted ventilation: - Remained intubated after EGD due to concern for aspiration of stomach contents during the procedure per anesthesia.. - Current vent settings reviewed. TV 380, rate 18, FiO2 60% and PEEP of 5. Ordered ABG, adjust vent settings as needed. - Discussed with RT, confirmed retraction of ET tube at least 3 cm after the last chest x-ray showing ET tube close to right mainstem. - C/w vent support per lung protective strategy (TV 6ml/kg by IBW, plat pressure < 30, PaO2 60-80 mm Hg, SaO2 > 92%) and c/w ABCDE bundle while intubated. - On Propofol gtt and add Fentanyl IV pushes for sedation/pain control. Goal to keep RAAS 0 to -2. - keep intubated for now though she is onminmal settings given possible trasnfer # CAYETANO superimposed on CKD: - Creatinine close to her baseline. Follow-up with serial BMP, monitor strict input and output. - Avoid nephrotoxic agents, renally dose medications. # Atrial fibrillation, controlled heart rate: - Continue to hold anticoagulation given GI bleed. # Sepsis secondary UTI / Gram-positive bacteremia: - Initial UA consistent with UTI. Urinary blood cultures x 2 with gram-positive cocci. - Follow-up on final cultures. Continue empiric Zosyn and IV vancomycin pending cultures. - Continue with IV fluids. Monitor lactic acid, urine output, mental status. # Diabetes type 2, fairly controlled: - Blood sugar now controlled, in 110s. C/w Accu-Cheks every 6 hours, sliding for insulin. BG goal 140-180. # Hypothyroidism: - Resume home dose of levothyroxine when able. ICU BUNDLE: # FEN: Currently NPO. # Glucose: fairly controlled. C/w Accu checks Q6 hours and SSI. BG goal 140-180 # Prophylaxis: SCDs for DVT prophylaxis, PPI for stress ulcer prophylaxis # Lines/tubes: PIV, Aragon, ET tube, OG tube # CODE STATUS: Full code # Disposition: Remains in ICU Above plan was discussed with rounding team including hospitalist, bedside RN, respiratory therapist during tele-ICU multidisciplinary rounds this morning. We will continue to follow. Please call us if any additional questions.
[2023-07-23 10:58] LABS: Fibrinogen 303 mg/dL (238-498)
--- NOTE | 2023-07-23 11:22 | PC.NURSE ---
1115 Consent from Daughter Camila Urias for transport by ACLS to [facility]. Report given to Shereen YOON at [facility] ICU.
--- NOTE | 2023-07-23 11:22 | CM.DPC ---
DCP Hospital Transfer Per MD, pt continues to be intubated and unlikely that pt will be successfully extubated today and continues to have bleed and now accepted at [facility] for higher level of care needs. Pt now DNR. fiber technician working on transport time and coordination with [facility]. BIANCA Condon
--- NOTE | 2023-07-23 17:54 | PM.DS.1 ---
History of Present Illness History of Present Illness Date Patient Seen: 07/23/23 Time Patient Seen: 08:30 Chief complaint: n/v Narrative: Pt stable on ventilator today - not needing pressors. Considered extubation attempt today but in light of possible further procedures will defer to accepting facility today. Hgb seems stable without further need for transfusion which is good since we're down to 1 unit. Discharge Providers Provider Date of admission: 07/21/23 17:27 Discharge Date: 07/23/23 Primary care physician: Sd Joshi MD Consults: 07/21/23 17:27 Consult to Physician Stat Comment: Consulting Provider: Harry Orourke Reason for consultation: gi bleed Has provider been notified: Yes 07/22/23 10:13 Consult to Tele-television actor Routine Comment: Consulting Provider: Karuna Tele-intensivists Reason for consultation: Nuclear Powerplant Supervisor services Has provider been notified: Yes Discharge provider: Sd Joshi MD Summary Hospital Course Hospital Course: Pt with complex history of nephrostomies and arthritis presented with progressing weakness and was found to have a GI bleed with acute anemia. She underwent endoscopy which revealed a large bleeding stomach ulcer and unfortunately she did aspirate in the process and therefore ended up on a ventilator. She is today not requiring pressure support although I understand she did yesterday. She has a PICC line and is full code. She is sedated with propofol and occasional fentanyl bumps. Extensive conversation with nursing and ICU television actor today. She does have an NGT putting out chocolate dark fluid. She has received several units of blood however our facility is now down to one unit we could give her if necessary. I also appreciate television actor input that she might well benefit from a CTA and possible embolization since this bleed does not seem fully controlled. Transfer secured we wish her the best of luck. Status at Discharge Cognitive/behavioral status at discharge: calm (vented and sedated) Overall status at discharge: patient is not back to baseline Exam Vital Signs (past 8 hours): - 07/23/23 10:00 07/23/23 10:00 07/23/23 10:15 Temperature 97.9 F Pulse Rate 83 84 Respiratory Rate 23 21 Blood Pressure 125/59 L Pulse Oximetry 97 100 07/23/23 10:15 07/23/23 10:30 07/23/23 10:30 Temperature Pulse Rate 79 Respiratory Rate 18 Blood Pressure 137/65 122/51 L Pulse Oximetry 100 07/23/23 10:45 07/23/23 10:45 07/23/23 11:00 Temperature Pulse Rate 79 80 Respiratory Rate 18 19 Blood Pressure 123/56 L Pulse Oximetry 100 100 07/23/23 11:00 07/23/23 11:15 07/23/23 11:15 Temperature Pulse Rate 79 Respiratory Rate 19 Blood Pressure 119/55 L 122/59 L Pulse Oximetry 100 07/23/23 11:30 07/23/23 11:30 07/23/23 11:45 Temperature Pulse Rate 80 78 Respiratory Rate 19 22 Blood Pressure 127/60 Pulse Oximetry 100 100 07/23/23 11:45 07/23/23 12:00 Temperature Pulse Rate 80 Respiratory Rate 24 Blood Pressure 137/60 Pulse Oximetry 100 Fraction of Inspired Oxygen 60 Oxygen Delivery Method Mechanical Ventilation Oxygen Flow Rate 0 Narrative Exam Narrative: ventilated with NGT putting out some dark colored red fluid Opens one eye a crack and does squeeze my hand on command. Resp Other: ventilated, moving air well Cardio Other: regular rate, well perfused, pale, S1/s2 GI Other: soft nontender active bowel sounds Other: bilateral nephrostomy tubes draining urine Extrem Other: minimal pedal edema Objective Labs 07/23/23 09:20 07/23/23 09:20 Labs: Laboratory Results - last 24 hr 07/21/23 07/22/23 07/22/23 10:50 17:10 20:44 WBC RBC Hgb Hct MCV MCH MCHC RDW Plt Count Neut % (Auto) Lymph % (Auto) [place] % (Auto) Eos % (Auto) Baso % (Auto) Neut # (Auto) Lymph # (Auto) [place] # (Auto) Eos # (Auto) Baso # (Auto) Total Counted 100 Seg Neutrophils % 85.0 H Band Neutrophils % 4.0 Lymphocytes % (Manual) 1.0 L Monocytes % (Manual) 10.0 Neutrophils # (Manual) 05840 H RBC Morphology Normal morphology PT INR APTT Fibrinogen ABG Sample Site Right radial ABG pH 7.37 ABG pCO2 35.0 ABG pO2 65 L ABG HCO3 20 L ABG Total CO2 21 L ABG O2 Saturation 92 L ABG Base Excess -5.0 L FiO2 96 Sodium Potassium Chloride Carbon Dioxide BUN Creatinine Estimated GFR BUN/Creatinine Ratio Glucose Calcium Total Bilirubin AST ALT Alkaline Phosphatase Total Protein Albumin Globulin Albumin/Globulin Ratio Blood Type O Negative Antibody Screen Negative Crossmatch See Detail 07/22/23 07/23/23 07/23/23 23:30 03:26 09:20 WBC 21.8 H 22.9 H 16.9 H RBC 2.35 L 2.73 L 2.70 L Hgb 6.8 L* 7.9 L 8.0 L Hct 20.5 L* 23.5 L 23.2 L MCV 87.3 86.3 86.2 MCH 29.0 29.0 29.6 MCHC 33.2 33.6 34.3 RDW 14.8 15.2 H 15.5 H Plt Count 172 167 142 L Neut % (Auto) 89.1 H 80.2 H Lymph % (Auto) 4.4 L 9.7 L [place] % (Auto) 5.9 8.3 Eos % (Auto) 0.3 L 1.4 L Baso % (Auto) 0.3 0.4 Neut # (Auto) 03799 H 13382 H Lymph # (Auto) 1000 L 1600 [place] # (Auto) 1300 H 1400 H Eos # (Auto) 100 200 Baso # (Auto) 100 100 Total Counted Seg Neutrophils % Band Neutrophils % Lymphocytes % (Manual) Monocytes % (Manual) Neutrophils # (Manual) RBC Morphology PT INR APTT Fibrinogen ABG Sample Site ABG pH ABG pCO2 ABG pO2 ABG HCO3 ABG Total CO2 ABG O2 Saturation ABG Base Excess FiO2 Sodium 140 140 Potassium 4.6 4.0 Chloride 117 H 121 H Carbon Dioxide 21 L 18 L BUN 65 H 58 H Creatinine 2.01 H 1.64 H Estimated GFR 24 L 30 L BUN/Creatinine Ratio 32.3 H 35.4 H Glucose 162 H 109 Calcium 7.1 L 6.5 L Total Bilirubin 0.8 AST 14 ALT 8 Alkaline Phosphatase 60 Total Protein 4.0 L Albumin 2.0 L Globulin 2.0 Albumin/Globulin Ratio 1.0 Blood Type Antibody Screen Crossmatch 07/23/23 10:15 WBC RBC Hgb Hct MCV MCH MCHC RDW Plt Count Neut % (Auto) Lymph % (Auto) [place] % (Auto) Eos % (Auto) Baso % (Auto) Neut # (Auto) Lymph # (Auto) [place] # (Auto) Eos # (Auto) Baso # (Auto) Total Counted Seg Neutrophils % Band Neutrophils % Lymphocytes % (Manual) Monocytes % (Manual) Neutrophils # (Manual) RBC Morphology PT 14.0 H INR 1.2 APTT 30 Fibrinogen 303 ABG Sample Site ABG pH ABG pCO2 ABG pO2 ABG HCO3 ABG Total CO2 ABG O2 Saturation ABG Base Excess FiO2 Sodium Potassium Chloride Carbon Dioxide BUN Creatinine Estimated GFR BUN/Creatinine Ratio Glucose Calcium Total Bilirubin AST ALT Alkaline Phosphatase Total Protein Albumin Globulin Albumin/Globulin Ratio Blood Type Antibody Screen Crossmatch [facility] Medical History Noncompliant neurogenic bladder Urinary incontinence, mixed Nephrolithiasis Postmenopausal atrophic vaginitis Ureteral obstruction, left MORGAN on CPAP Obstructive uropathy History of recurrent UTI (urinary tract infection) Gross hematuria Pneumothorax Peptic ulcer disease Depression Anxiety GI bleed Calculus of kidney HTN (hypertension) Hypothyroid Surgical History History of thyroidectomy Nephrostomy status Hx of cystoscopy (08/04/19) H/O mastectomy History of hip replacement H/O gastric bypass History of back surgery Hx of bilateral cataract extraction (2012) Family History Father Seizures Mother Heart disease Diabetes mellitus Brother No significant medical problems Sister Diabetes mellitus Grandmother Diabetes mellitus Social History household members: spouse Smoking Status: Never smoker alcohol intake: never eating out: rarely or never Type(s) of exercise: none Discharge Assessment & Plan Assessment and Plan Assessment: #Acute gastrointestinal bleed #acute anemia 2/2 blood loss s/p endoscopy yesterday with finding of significant blood clot in stomach, no signs of current active bleeding. Monitor closely hemoglobin and hematocrit. continue PPI hold NSAIDs and anticoagulants #Aspiration pneumonitis #intubated status on ventilator 2/2 aspiration during endoscopy procedure. Improving and possibly suitable for extubation today. Patient currently on antibiotics because of urinary tract infection. #Acute urinary tract infection Urine cultures growing out Gram-negative bacilli. Blood culture shows 1 bottle that is positive with Gram-positive cocci. Questionable contaminant. Patient is on Zosyn for coverage on review of previous antibiotics and microbiology this should cover her current bacterial infection. We will wait for culture to make additional changes. #Chronic renal failure with acute kidney injury Monitor fluids and resuscitate gently as tolerated #Atrial fibrillation Patient with atrial fibrillation patient is not normally on anticoagulation her rate is well controlled. She was started on metoprolol during her hospital stay. We will have to convert over to IV medication if patient remains intubated. #non insulin dependent diabetes type 2 Patient is not on medication at home. Blood sugars are high she will be continued on her insulin sliding scale. #Hyperlipidemia Medication on hold as patient is on vent #Hypothyroidism medication on hold because patient is on vent Dispo: transfer to higher level of care for increased access to specialist care. Possibly may need CTA and embolization to stop blood loss. MDM: /daughter Code: full Discharge Plan Discharge Plan Patient Disposition: [facility] Other facility: [facility] Under care of provider: Dr. Edwin Hollins Provider Discharge Comment: via ALS for higher level of care Discharge Data Primary Care Provider: Sd Joshi VTE Deep Vein Thrombosis/Pulmonary Embolism Present on Admission: No
== END 2023-07-23 12:20 | disposition short-term general hospital (02) | DRG 853 ==
LOC: ED 10:41 → AC 17:27 → ICU 07-22 09:54
PROVIDERS: Internal Medicine; Internal Medicine Critical Care Medicine; Surgery; Admitting Provider Family Medicine; Emergency Provider Emergency Medicine; PCP Family Medicine; Referring Provider Emergency Medicine; Visit Provider Family Medicine
PROC: 0DJ08ZZ Inspection of Upper Intestinal Tract, Via Natural or Artificial Opening Endoscopic (ICD-10-PCS; CPT 43235; principal; 2023-07-22 09:00)
DX: A41.9 Sepsis, unspecified organism (principal); J69.0 Pneumonitis due to inhalation of food and vomit; K25.4 Chronic or unspecified gastric ulcer with hemorrhage; J95.821 Acute postprocedural respiratory failure; R57.8 Other shock; D62 Acute posthemorrhagic anemia; N39.0 Urinary tract infection, site not specified; I48.91 Unspecified atrial fibrillation; E78.5 Hyperlipidemia, unspecified; E03.9 Hypothyroidism, unspecified; E11.65 Type 2 diabetes mellitus with hyperglycemia; E11.22 Type 2 diabetes mellitus with diabetic chronic kidney disease; I12.9 Hypertensive chronic kidney disease with stage 1 through stage 4 chronic kidney disease, or unspecified chronic kidney disease; N18.9 Chronic kidney disease, unspecified; Z93.6 Other artificial openings of urinary tract status; Z79.82 Long term (current) use of aspirin
CPT/HCPCS: 36415; 36430; 36592; 36600; 43235; 71045; 74176; 80048; 80053; 81001; 82550; 82805; 82962; 83605; 83690; 84484; 85007; 85014; 85018; 85025; 85027; 85384; 85610; 85730; 86850; 86900; 86901; 87040; 87077; 87086; 87154; 87186; 87797; 93005; 93010; 94003; 94799; 96365; 96375; 96376; 99223; 99232; 99233; 99284; 99285; P9016; C9113; J1642; J1815; J2543; J2704; J3010

== ENCOUNTER 2023-12-09 19:58 | Inpatient (IN) | payer MEDICARE, OTHER, SELFPAY ==
[2023-07-21 18:40] VITALS: BMI 47.0
[2023-07-23 04:37] VITALS: RESP 1
[2023-07-23 10:17] VITALS: PULSE 84; RESP 23; O2SAT 97
[2023-12-09] VITALS (13 sets, daily range): BP systolic 126–193; BP diastolic 61–84; PULSE 63–70; RESP 18–22; TEMP 36.1; O2SAT 95–100; BMI 43.9
[2023-12-09 20:36] LABS: Appearance Urine UA CLOUDY; Bilirubin Urine UA NEGATIVE (NEGATIVE); Color Urine UA YELLOW; Glucose Urine UA NEGATIVE (Negative); Ketones Urine UA NEGATIVE (NEGATIVE); Leukocyte Esterase Urine UA 3+ (NEGATIVE); Nitrite Urine UA NEGATIVE (Negative); Occult Blood Urine UA 2+ (Negative); Protein Urine UA 2+ (Negative); Urobilinogen Urine UA 0.2 E.U./dL (0.2)
[2023-12-09 20:51] LABS: pH Urine UA >= 9.0 (4.5-8.0)
[2023-12-09 20:55] LABS: Bacteria Urine Many (>30); RBC Urine 5-10/HPF (0-5/HPF); Squamous Epithelial Cell Urine None Seen (0-5/HPF); Triple Phosphate Crystal Urine Moderate; Urine Volume 10mL (spun); WBC Urine 1-5/HPF (0-5/HPF)
--- NOTE | 2023-12-09 21:41 | ED.GENADULT ---
HPI - General Adult General Chief complaint: Urogenital-Female Stated complaint: confusion Time Seen by Provider: 12/09/23 20:22 Source: patient and EMS Mode of arrival: EMS History of Present Illness HPI narrative: Patient is an 80-year-old female who was brought to the emergency department for evaluation of was initially described as confusion. There are no family members or friends at bedside to present any HPI. Patient states that she felt like she was at her normal state of health. Some neighbors came over to her house to bring some cake for dessert after dinner. She stated that her neighbor mentioned something to her that her neighbor thought that she was acting somewhat strange. The patient seemed confused about what the neighbor was saying. The neighbor contacted a lawn caretaker who came and also stated that the patient seemed to be somewhat confused. Patient stated that she did not necessarily felt confused but felt that she ?could not get my mind? she denies headache, vision changes, chest pain, abdominal pain. No lower extremity discomfort or numbness or tingling. She does have chronic low back pain. She does admit that she feels like her brain is very foggy that she has a difficult time answering questions and comprehending what people were saying. Related Data Home Medications Medication Instructions Recorded Confirmed gabapentin 300 mg capsule 900 mg PO TID ##0 01/31/16 12/10/23 (Neurontin) atorvastatin 40 mg tablet 40 mg PO DAILY 07/21/23 12/10/23 PreserVision AREDS 2 Plus MV 2 softgel DAILY 12/10/23 12/10/23 levothyroxine 88 mcg tablet 88 mcg PO DAILY 12/10/23 12/10/23 metoprolol tartrate 25 mg tablet 25 mg PO BID 12/10/23 12/10/23 Previous Rx's Medication Instructions Recorded tramadol 50 mg tablet 50 mg PO Q6H PRN pain #10 tabs 09/06/20 sodium chloride 0.9 % (flush) (BD 5 ml intra-catheter Q12H Flush 11/10/20 PosiFlush Normal Saline 0.9 % each nephrostomy tube with 5 ml injection syringe) twice daily #1,000 mL y-site line connector, closed #1 ea 11/10/20 Allergies Allergy/AdvReac Type Severity Reaction Status Date / Time alcohol Allergy Severe Rash, Verified 11/10/20 11:17 facial swelling amphotericin B AdvReac Severe Jittery, Verified 11/10/20 11:17 [AMPHOTERICIN B] tremors Review of Systems Review of Systems ROS Unobtainable: All systems reviewed & are unremarkable except as noted in HPI and below Patient History Medical History Noncompliant neurogenic bladder Urinary incontinence, mixed Nephrolithiasis Postmenopausal atrophic vaginitis Ureteral obstruction, left MORAGN on CPAP Obstructive uropathy History of recurrent UTI (urinary tract infection) Gross hematuria Pneumothorax Peptic ulcer disease Depression Anxiety GI bleed Calculus of kidney HTN (hypertension) Hypothyroid Surgical History History of thyroidectomy Nephrostomy status Hx of cystoscopy (08/04/19) H/O mastectomy History of hip replacement H/O gastric bypass History of back surgery Hx of bilateral cataract extraction (2012) Family History Father Seizures Mother Heart disease Diabetes mellitus Brother No significant medical problems Sister Diabetes mellitus Grandmother Diabetes mellitus Social History household members: spouse Smoking Status: Never smoker alcohol intake: never eating out: rarely or never Type(s) of exercise: none Smoking Status: Never smoker alcohol intake frequency: other Substance Use Type: does not use Exam Initial Vital Signs Initial Vital Signs: Vital Signs Pulse Oximetry 99 12/09/23 20:00 Const General: cooperative, comfortable and No ill appearing HENMT Head: normal to inspection and normocephalic Resp Effort & Inspection: normal respiratory effort Auscultation: clear to auscultation bilaterally Cardio Rate: regular rate Rhythm: regular rhythm GI Inspection: normal to inspection Back/Spine/Pelvis Other: Bilateral nephrostomy tubes Skin General: no rashes or lesions noted Neuro General: patient alert, patient awake and moves all extremities Other: Patient was alert to person and place however is obviously having difficulty expressing why she was here. She was very slow to answer questions. Seems to have trouble understanding what is being asked that she takes a very long time to answer questions. Extrem General: capillary refill normal Course Orders Ordered: ED Orders 12/09/23 20:18 Urinalysis and Microscopic Stat Urine Culture Stat 12/09/23 20:25 Complete Blood Count AUTO DIFF Stat Comprehensive Metabolic Panel Stat Ethanol (ETOH) Stat Lipase Stat Magnesium Stat Thyroid Stimulating Hormone Stat Troponin & CK Cardiac Panel Stat 12/09/23 21:42 CT head/brain wo con Stat EKG-12 Lead Stat Ondansetron HCl (Ondansetron 4 Mg/2 Ml Inj) 4 mg IV Q4HR PRN PRN Reason: Nausea And Vomiting Discontinued Medications Ceftriaxone Sodium 1,000 mg/ (Sodium Chloride) 100 mls @ 200 mls/hr IV NOW ONE Stop: 12/09/23 23:51 Last Infusion: 12/10/23 00:35 Dose: Infused Documented By: Admin: 12/09/23 23:59 Dose: 200 mls/hr Documented By: Vital Signs Vital signs: Vital Signs - 8 hr 12/09/23 20:00 12/09/23 20:01 12/09/23 20:01 Temperature Pulse Rate 70 Respiratory Rate Blood Pressure 193/84 H Pulse Oximetry 99 98 Oxygen Delivery Method 12/09/23 20:10 12/09/23 20:30 12/09/23 20:31 Temperature 97.0 F L Pulse Rate 69 64 65 Respiratory Rate 18 Blood Pressure 193/84 H Pulse Oximetry 100 98 98 Oxygen Delivery Method Room Air 12/09/23 20:31 12/09/23 21:00 12/09/23 21:01 Temperature Pulse Rate 65 Respiratory Rate Blood Pressure 161/65 H 133/61 Pulse Oximetry 97 Oxygen Delivery Method 12/09/23 21:01 12/09/23 21:30 12/09/23 21:30 Temperature Pulse Rate 67 67 Respiratory Rate 18 Blood Pressure 126/68 Pulse Oximetry 97 97 Oxygen Delivery Method 12/09/23 21:52 12/09/23 21:52 12/09/23 22:00 Temperature Pulse Rate 70 67 Respiratory Rate 22 Blood Pressure 177/76 H Pulse Oximetry 98 98 Oxygen Delivery Method 12/09/23 22:30 12/09/23 23:00 12/09/23 23:30 Temperature Pulse Rate 64 63 66 Respiratory Rate 19 20 18 Blood Pressure Pulse Oximetry 100 95 97 Oxygen Delivery Method 12/10/23 00:00 12/10/23 00:30 Temperature Pulse Rate 65 63 Respiratory Rate 21 19 Blood Pressure Pulse Oximetry 97 98 Oxygen Delivery Method Medical Decision Making Medical Records Medical records reviewed: Yes I reviewed the patient's medical records. Lab Data Lab results reviewed: Yes I reviewed the patient's lab results. 12/09/23 20:25 12/09/23 20:25 Labs: Lab Results 12/09/23 12/09/23 Range/Units 20:18 20:25 WBC 9.8 (4.5-11.0) X10^3/uL RBC 4.06 (4.0-5.2) X10^6/uL Hgb 10.5 L (12.0-16.0) g/dL Hct 33.4 L (36-46) % MCV 82.4 (80-100) fL MCH 25.9 L (26-34) PG MCHC 31.5 (30-36) % RDW 18.2 H (11.6-14.8) % Plt Count 223 (150-400) X10^3/uL Neut % (Auto) 70.4 (50-75) % Lymph % (Auto) 13.2 L (25-40) % [place] % (Auto) 11.7 (3-14) % Eos % (Auto) 4.2 H (2-4) % Baso % (Auto) 0.5 (0-2) % Neut # (Auto) 6900 (4326-2861) /uL Lymph # (Auto) 1300 (8013-4981) /uL [place] # (Auto) 1200 H (0-900) /uL Eos # (Auto) 400 (0-450) /uL Baso # (Auto) 0 (0-100) /uL Sodium 138 (137-145) mmol/L Potassium 5.4 H (3.4-5.1) mmol/L Chloride 109 H (98-107) mmol/L Carbon Dioxide 24 (22-32) mmol/L BUN 43 H (7-17) mg/dL Creatinine 2.33 H (0.52-1.04) mg/dL Estimated GFR 20 L (>60) mL/min BUN/Creatinine Ratio 18.5 (6-22) Glucose 168 H (80-110) mg/dL Calcium 9.0 (8.4-10.2) mg/dL Magnesium 2.1 (1.6-2.3) mg/dL Total Bilirubin 0.4 (0.2-1.3) mg/dL AST 31 (14-36) IU/L ALT 20 (<35) IU/L Alkaline Phosphatase 155 H (38-126) U/L Total Creatine Kinase 85 (30-135) U/L Troponin I < 0.012 (0.01-0.034) ng/mL Total Protein 6.9 (6.3-8.2) g/dL Albumin 3.7 (3.5-5.0) g/dL Globulin 3.2 (1.7-4.1) g/dL Albumin/Globulin Ratio 1.2 (1.0-2.8) Lipase 261 (23-300) U/L TSH 2.18 (0.47-4.68) uIU/mL Urine Color Yellow Urine Appearance Cloudy Urine pH >= 9.0 H (4.5-8.0) Ur Specific [place] 1.010 (1.000-1.035) Urine Protein 2+ H (Negative) Urine Glucose (UA) Negative (Negative) g/dL Urine Ketones Negative (NEGATIVE) Urine Occult Blood 2+ H (Negative) Urine Nitrate Negative (Negative) Urine Bilirubin Negative (NEGATIVE) Urine Urobilinogen 0.2 (0.2) E.U./dL Ur Leukocyte Esterase 3+ H (NEGATIVE) Urine RBC 5-10/hpf H (0-5/HPF) Urine WBC 1-5/hpf (0-5/HPF) Ur Squamous Epith Cells None seen (0-5/HPF) Triple Phos Crystals Moderate Urine Bacteria Many (>30) H (None) Vol Urine Centrifuged 10ml (spun) Ethyl Alcohol < 10 ( - 10) mg/dL Imaging Data CT scan - head: Radiologist's Impression: PROCEDURE: CT HEAD/BRAIN WO CON INDICATIONS: Confusion TECHNIQUE: Noncontrast 4.5 mm thick angled axial sections acquired from the foramen magnum to the vertex, with coronal and sagittal reformats. For radiation dose reduction, the following was used: automated exposure control, adjustment of mA and/or kV according to patient size. COMPARISON: [facility], CT, CT HEAD WITHOUT CONTRAST, 08/08/2023, 15:25. FINDINGS: Image quality: Diagnostic. CSF spaces: Basal cisterns are patent. No extra-axial fluid collections. The ventricles are symmetric in size and shape. Brain: Area of encephalomalacia within the right frontal lobe. No intracranial bleeds or masses. There is cerebral volume loss for age, with resultant ventricular and sulcal prominence. There are periventricular and deep white matter chronic small vessel ischemic changes. There is intracranial internal carotid artery atherosclerosis. Skull and face: Calvarium and visualized facial bones appear intact, without suspicious lesions. Hyperostosis frontalis interna. Sinuses: Visualized sinuses and mastoids are clear. 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 No acute intracranial pathology. ECG Data Attestation: I personally reviewed and interpreted this ECG as follows: Interpretation: Sinus rhythm rate is 66 Normal axis First-degree AV block WA interval [address] T wave changes MDM Narrative Medical decision making narrative: Her urinalysis is consistent with a urinary tract infection. She was not septic. Was given antibiotics. Her thyroid levels are unremarkable. Labs are relatively unremarkable. She was obviously having problems communicating although she was not slurring her words. She was taking a very long time to answer questions and seems to have trouble processing what you are asking her. She does state that she does have ?brain fog? I do feel that admission to the hospital for further evaluation her symptoms is warranted. There was no one it bedside to describe her baseline mental status. I did discuss the case with Dr. Crenshaw hospitalist on-call who will admit for further evaluation and treatment. Discharge Plan Departure Patient Disposition: Admitted as Observation Clinical Impression: Acute confusion, Urinary tract infection Admit Date/Time: 12/10/23 00:36 Admit Provider: Shawn Conrad
--- NOTE | 2023-12-09 21:42 | EKG_ITS ---
[address] [address] Test Date: 2023-12-09 Pat Name: Latonia Bynum [facility] Room: Gender: Female [employer]: MEDARDO : 1935 Requested By: Order Number: [id number] Reading MD: Codey Harris MD Measurements Intervals [place] Rate: 66 P: 70 [place]: 220 QRS: 40 QRSD: 84 T: 57 QT: 402 QTc: 421 Interpretive Statements Sinus rhythm with 1st degree AV block Electronically Signed On 12-10-2023 7:59:34 PDT by Codey Harris MD
[2023-12-09 22:02] LABS: Add Manual Diff / Slide Review NO; Basophils Absolute Auto 0 /uL (0-100); Basophils Percent Auto 0.5 % (0-2); Eosinophils Absolute Auto 400 /uL (0-450); Eosinophils Percent Auto 4.2 % (2-4); Hematocrit 33.4 % (36-46); Hemoglobin 10.5 g/dL (12.0-16.0); Lymphocytes Absolute Auto 1300 /uL (1100-4500); Lymphocytes Percent Auto 13.2 % (25-40); Mean Corpuscular HGB Conc 31.5 % (30-36); Mean Corpuscular Hemoglobin 25.9 PG (26-34); Mean Corpuscular Volume 82.4 fL (80-100); Monocytes Absolute Auto 1200 /uL (0-900); Monocytes Percent Auto 11.7 % (3-14); Neutrophils Absolute Auto 6900 /uL (1500-7000); Neutrophils Percent Auto 70.4 % (50-75); Platelet Count 223 X10^3/uL (150-400); Red Blood Cell Count 4.06 X10^6/uL (4.0-5.2); Red Cell Distribution Width 18.2 % (11.6-14.8); White Blood Cell Count 9.8 X10^3/uL (4.5-11.0)
[2023-12-09 22:08] LABS: Alanine Aminotransferase 20 IU/L (<35); Albumin 3.7 g/dL (3.5-5.0); Albumin Globulin Ratio 1.2 (1.0-2.8); Alkaline Phosphatase 155 U/L (38-126); Aspartate Aminotransferase 31 IU/L (14-36); BUN Creatinine Ratio 18.5 (6-22); Bilirubin Total 0.4 mg/dL (0.2-1.3); Blood Urea Nitrogen 43 mg/dL (7-17); Carbon Dioxide 24 mmol/L (22-32); Chloride 109 mmol/L (98-107); Creatine Kinase 85 U/L (30-135); Estimated Glomerular Filt Rate 20 mL/min (>60); Ethanol (ETOH) < 10 mg/dL; Globulin 3.2 g/dL (1.7-4.1); Glucose 168 mg/dL (80-110); Lipase 261 U/L (23-300); Magnesium 2.1 mg/dL (1.6-2.3); Sodium 138 mmol/L (137-145); Total Protein 6.9 g/dL (6.3-8.2)
[2023-12-09 22:19] LABS: Troponin I < 0.012 ng/mL (0.01-0.034)
[2023-12-09 22:23] LABS: HEMOLYSIS 72 (0-50); Potassium 5.4 mmol/L (3.4-5.1)
[2023-12-09 22:40] LABS: Thyroid Stimulating Hormone 2.18 uIU/mL (0.47-4.68)
[2023-12-09] MEDS: cefTRIAXone 1,000 MG in SODIUM CHLORIDE 0.9% 100 ML 200 MG IV (23:59)
[2023-12-10] VITALS (9 sets, daily range): BP systolic 139–171; BP diastolic 60–77; PULSE 60–80; RESP 16–22; TEMP 36.1–36.4; O2SAT 96–99; BMI 43.9
--- NOTE | 2023-12-10 06:42 | PC.NURSE ---
Pt admitted from ED. Able to answer orientation questions with some queuing but answers are delayed and speech is somewhat tangential. Follows commands in all extremities. L foot red, pt states this is chronic, says great toe and 2nd toe are numb. Not hot to touch. Bilateral neph tubes draining foul smelling urine. Dressing CDI. Did not ambulate but stated at home she moves around with a walker and does have caregivers daily to help with ADLs. Daughter updated this AM
--- NOTE | 2023-12-10 09:53 | DI.MRI.S_ITS ---
PROCEDURE: MR STROKE Pre- and post-contrast brain MRI, non-contrast brain MR angiogram, pre- and postcontrast neck MR angiogram INDICATIONS: new neuro symptoms with new head CT findings suspect stroke TECHNIQUE: Brain: Noncontrast axial T1 spin echo, axial T2 fast spin echo, sagittal and axial FLAIR, coronal T2 fast spin echo, axial gradient echo, axial diffusion and ADC through the brain. After the administration of contrast, axial 3D VIBE of the cranial vasculature and brain. Brain MRA: Non-contrast 3-D time of flight MR angiogram, with multiple vfgcswp-hbaxykjcb-vjuwecurzu (MIP) reformats performed. Neck MRA: Axial and sagittal TruFISP through the neck. Coronal dynamic MR angiogram during administration of contrast in the arterial and venous phases, with 3-dimenstional awerork-eatroitjo-chhoyxesyi (MIP) reformats constructed from subtraction images. COMPARISON: None. FINDINGS: Image quality: This examination is limited by involuntary motion artifact. BRAIN: CSF spaces: Ventricles are normal in size and shape. Basal cisterns are patent. No extra-axial fluid collections. Brain: Abnormal diffusion-weighted signal can be seen within the left frontal lobe medially, particularly superiorly, as on series 26 image is 67 through 72. Associated dark signal can be seen at these sites. Developing T2 weighted signal can be seen at these sites. No intracranial bleeds or mass effects. Sampson-white matter interface is normal. Brainstem appears normal. Normal intravascular flow voids are present. No abnormal intracranial enhancement. Note is made of age-appropriate brain parenchymal volume loss and chronic small vessel ischemic changes. Skull and face: Calvarial marrow signal is normal. Orbits appear normal. Note is made of bilateral lens replacements. Incidental note is made of hyperostosis frontalis. This is not considered to be pathologic in a woman of this age. Sinuses: Sinuses and mastoids are clear. BRAIN MR ANGIOGRAM: Anterior circulation: Intracranial internal carotid arteries are normal in size and enhancement. The flow within the paired anterior cerebral arteries is normal and symmetric. The flow within the middle cerebral arteries is normal and symmetric. The anterior communicating artery is seen. No stenoses, occlusions, or aneurysms. Posterior circulation: The visualized portions of the vertebral arteries demonstrate normal caliber, and join to form a normal appearing basilar artery. The flow within the posterior cerebral arteries is normal and symmetric. No stenoses, occlusions, or aneurysms. NECK MR ANGIOGRAM: Carotids: Incidental note is made of a common origin of the right brachiocephalic artery and the left common carotid artery (bovine type arch). This is considered to be a developmental variant of no clinical consequence. The origins of the common carotid arteries appear patent. The calibers and courses of both common carotid arteries are normal. The bifurcation regions appear normal bilaterally. The internal carotid arteries demonstrate normal course and caliber. Posterior circulation: There is approximately 50% narrowing seen involving the origin of the right vertebral artery. The proximal left vertebral artery appears normal. More superior portions of both vertebral arteries demonstrate normal course and caliber, and join to form a normal appearing basilar artery. Miscellaneous: Subclavian arteries appear patent. Pre-contrast images through the neck show no soft tissue abnormalities. IMPRESSION: BRAIN MRI: There are subacute infarctions seen within the left MARINO territory, particular involving the superior medial left frontal lobe. Note is made of age-appropriate brain parenchymal volume loss and chronic small vessel ischemic changes. BRAIN MR ANGIOGRAM: No significant intracranial arterial abnormality is seen. Specifically, no significant abnormality of the left MARINO can be seen. NECK MR ANGIOGRAM: No significant carotid abnormality is seen. Approximately 50% narrowing seen involving the origin of the right vertebral artery. Bovine type aortic arch incidentally noted. Dictated by: rUiah Cornell M.D. on 12/10/2023 at 15:41 Approved by: Uriah Cornell M.D. on 12/10/2023 at 15:45
[2023-12-10] MEDS: HYDROCODONE/ACET 5/325 TABLET 1 TAB PO ×2 (10:51→22:20)
[2023-12-10] MEDS: ENOXAPARIN 40 MG/0.4 ML SYRINGE SUBCUT ×2 (10:52→20:52)
--- NOTE | 2023-12-10 11:32 | P.HP_ITS ---
History of Present Illness History of Present Illness Date Patient Seen: 12/10/23 Time Patient Seen: 09:00 Date of Onset of Symptoms: 12/09/23 Chief complaint: confusion Narrative: CC: It's like something in my brain just went clunk! Pt presented to ED yesterday after normal day dinner with family then suddenly began feeling odd and confused. Workup in ED did show a UTI however she is chronically instrumented with bilateral nephrostomies 2/2 obstruction and says this does not feel like her usual UTIs. 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 She is fully oriented but does have some mild word salad today. Discussed with her and caregiver on the phone today. Today will try to get MRI and do therapy evals, treat UTI. [facility] Medical History Noncompliant neurogenic bladder Urinary incontinence, mixed Nephrolithiasis Postmenopausal atrophic vaginitis Ureteral obstruction, left MORGAN on CPAP Obstructive uropathy History of recurrent UTI (urinary tract infection) Gross hematuria Pneumothorax Peptic ulcer disease Depression Anxiety GI bleed Calculus of kidney HTN (hypertension) Hypothyroid Surgical History History of thyroidectomy Nephrostomy status Hx of cystoscopy (08/04/19) H/O mastectomy History of hip replacement H/O gastric bypass History of back surgery Hx of bilateral cataract extraction (2012) Family History Father Seizures Mother Heart disease Diabetes mellitus Brother No significant medical problems Sister Diabetes mellitus Grandmother Diabetes mellitus Social History household members: spouse Smoking Status: Never smoker alcohol intake: never eating out: rarely or never Type(s) of exercise: none Meds Home Medications and Allergies Home Medications Medication Instructions Recorded Confirmed Type gabapentin 300 mg capsule 900 mg PO TID ##0 01/31/16 12/10/23 History (Neurontin) tramadol 50 mg tablet 50 mg PO Q6H PRN pain #10 tabs 09/06/20 12/10/23 Rx sodium chloride 0.9 % (flush) (BD 5 ml intra-catheter Q12H Flush 11/10/20 12/10/23 Rx PosiFlush Normal Saline 0.9 % each nephrostomy tube with 5 ml injection syringe) twice daily #1,000 mL y-site line connector, closed #1 ea 11/10/20 12/10/23 Rx atorvastatin 40 mg tablet 40 mg PO DAILY 07/21/23 12/10/23 History PreserVision AREDS 2 Plus MV 2 softgel DAILY 12/10/23 12/10/23 History levothyroxine 88 mcg tablet 88 mcg PO DAILY 12/10/23 12/10/23 History metoprolol tartrate 25 mg tablet 25 mg PO BID 12/10/23 12/10/23 History Allergies Allergy/AdvReac Type Severity Reaction Status Date / Time alcohol Allergy Severe Rash, Verified 11/10/20 11:17 facial swelling amphotericin B AdvReac Severe Jittery, Verified 11/10/20 11:17 [AMPHOTERICIN B] tremors Review of Systems Review of Systems Narrative: all systems reviewed and negative except as otherwise documented in HPI Exam Vital Signs (past 8 hours): - 12/10/23 04:00 12/10/23 07:48 Temperature 97.2 F L 97.5 F L Pulse Rate 60 64 Respiratory Rate 20 22 Blood Pressure 147/77 H 143/62 H Pulse Oximetry 98 98 Oxygen Flow Rate 0 0 Oxygen Delivery Method Room Air Oxygen Flow Rate 0 Narrative Exam Narrative: alert laying on hospital bed Resp Other: moving air well, clear to auscultation bilaterally on room air Cardio Other: regular rate, s1/s2, minimal pedal edema GI Other: soft nontender active bowel sounds Neuro Other: AAOx3 with some hesitance and wordfinding/word salad rather mild but appreciable. CN 2-12 grossly intact without lateralizing features - moving all limbs. Objective Labs 12/09/23 20:25 12/09/23 20:25 Labs: Laboratory Results - last 24 hr 12/09/23 12/09/23 20:18 20:25 WBC 9.8 RBC 4.06 Hgb 10.5 L Hct 33.4 L MCV 82.4 MCH 25.9 L MCHC 31.5 RDW 18.2 H Plt Count 223 Neut % (Auto) 70.4 Lymph % (Auto) 13.2 L [place] % (Auto) 11.7 Eos % (Auto) 4.2 H Baso % (Auto) 0.5 Neut # (Auto) 6900 Lymph # (Auto) 1300 [place] # (Auto) 1200 H Eos # (Auto) 400 Baso # (Auto) 0 Sodium 138 Potassium 5.4 H Chloride 109 H Carbon Dioxide 24 BUN 43 H Creatinine 2.33 H Estimated GFR 20 L BUN/Creatinine Ratio 18.5 Glucose 168 H Calcium 9.0 Magnesium 2.1 Total Bilirubin 0.4 AST 31 ALT 20 Alkaline Phosphatase 155 H Total Creatine Kinase 85 Troponin I < 0.012 Total Protein 6.9 Albumin 3.7 Globulin 3.2 Albumin/Globulin Ratio 1.2 Lipase 261 TSH 2.18 Urine Color Yellow Urine Appearance Cloudy Urine pH >= 9.0 H Ur Specific [place] 1.010 Urine Protein 2+ H Urine Glucose (UA) Negative Urine Ketones Negative Urine Occult Blood 2+ H Urine Nitrate Negative Urine Bilirubin Negative Urine Urobilinogen 0.2 Ur Leukocyte Esterase 3+ H Urine RBC 5-10/hpf H Urine WBC 1-5/hpf Ur Squamous Epith Cells None seen Triple Phos Crystals Moderate Urine Bacteria Many (>30) H Vol Urine Centrifuged 10ml (spun) Ethyl Alcohol < 10 Assessment & Plan Assessment & Plan narrative: 88yo F with indwelling nephrostomies presents with acute confusion #encephalopathy, cause unclear infectious vs structural. New frontal malacia noted on CT but not noted on August scan. Will get stroke MRI, therapy evals. #UTI #chronic indwelling nephrostomy #chronic kidney disease stage 4 treating with rocephin, continue q24h and hydrate #acquired hypothyroidism stable continue home 88mcg dose #hx of diabetes, diet controlled not on meds, monitor #hx of gerd stable continue ppi #hx of hyperlipidemia stable on home statin, noted Dispo: Admit obsv for further workup PCP: Adi MDM: Daughter code: DNR/DNI Time-Based Coding :: [TOTAL MINUTES] spent with patient and on the chart (including review of chart, obtaining history, exam, reviewing outside data, placing orders, documenting exam and treatment plan, and counseling patient) on [DATE]. Quality VTE Deep Vein Thrombosis/Pulmonary Embolism Present on Admission: No
--- NOTE | 2023-12-10 12:30 | OT.IP.EVAL ---
Past Medical History (Last Reviewed 12/10/23 @ 03:24 by Rosales Veronica DO) Anxiety Calculus of kidney Depression GI bleed Gross hematuria History of recurrent UTI (urinary tract infection) HTN (hypertension) Hypothyroid Nephrolithiasis Noncompliant neurogenic bladder Obstructive uropathy MORGAN on CPAP Peptic ulcer disease Pneumothorax Postmenopausal atrophic vaginitis Ureteral obstruction, left Urinary incontinence, mixed Surgical History (Last Reviewed 07/22/23 @ 09:07 by Harry Orourke MD) H/O gastric bypass H/O mastectomy History of back surgery History of hip replacement History of thyroidectomy Hx of bilateral cataract extraction (2012) Hx of cystoscopy (08/04/19) Nephrostomy status Occupational Therapy Inpatient Evaluation/Re-Eval M1 PT/OT-IP Prior Functional Status Start: 12/10/23 10:27 Freq: NEEDED Status: Active Protocol: Document 12/10/23 14:34 CGR (Rec: 12/10/23 14:47 CGR [id number]) Medical Review Prior Functional Status Medical History Reviewed Yes Communication Pt is an effective verbal communicator. Mobility and Gait Pt reports she gait trains with 4WRW Activities of Daily Living and IADL's Pt states that she has caregivers that come in to mostly help her but that the assist with socks, and showering for her. 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 Caregivers come in for 2-3 hours daily. Social History Household Members spouse Living Arrangements House Number of Stairs To Enter/Railing? Ramp to enter Home Environment High Toilet Home Equipment Four Wheel Walker,Straight Cane,Shower Seat without Backrest,Frame Opener,Grab Bars Near Toilet,Grab Bars In Shower Employment Status Retired M2 OT-IP Current Condition Start: 12/10/23 14:34 Freq: Status: Active Protocol: Document 12/10/23 14:34 CGR (Rec: 12/10/23 14:47 CGR [id number]) Occupational Therapy Current Condition Current Condition Evaluation Date 12/10/23 Treatment Diagnosis confusion, UTI Diagnosis Onset Date 12/10/23 M3 OT- IP Subjective and Pain Start: 12/10/23 14:34 Freq: Status: Active Protocol: Document 12/10/23 14:34 CGR (Rec: 12/10/23 14:47 CGR [id number]) OT- Subjective Occupational Therapy Visit Type Type Initial Evaluation Visit Start Time 12:08 Visit Stop Time 12:30 Notes Partial co-treat with P.T. OT Pain Assessment Pain When Pain Assessed At Rest Pain Present Pain Present Denied Pain M4 OT- IP ADL's Start: 12/10/23 14:34 Freq: Status: Active Protocol: Document 12/10/23 14:34 CGR (Rec: 12/10/23 14:47 CGR [id number]) OT [id number] General Evaluation Self-Feeding Ability Independent Comments OT Self-Feeding Comments pt set up for lunch at end of session. OT ADL-Grooming Comments OT Grooming Comments Pt declined to perform, states that she already performed OT ADL-Oral Care Comments Oral Care Comments Pt declined to perform, states that she already performed OT ADL-Dressing Comments OT Dressing Comments not performed, pt is dep for socks at baseline OT ADL-Toileting Comments OT Toileting Comments not performed, pt declined need OT ADL-Bathing Comments OT Bathing Comments Pt declined to perform M5 OT- IP IADL's Start: 12/10/23 14:34 Freq: Status: Active Protocol: Document 12/10/23 14:34 CGR (Rec: 12/10/23 14:47 CGR [id number]) OT-Instrumental Activities of Daily Living Deficits IADL Deficits Identified No Deficits Home Safety Awareness Awareness of Need for Assistance at Home Good Awareness Ability to Problem Solve Emergency Able to Problem Solve Situations Medication Management Medication Management No Deficits Identified Money Management Money Management No Deficits Identified Meal Preparation Meal Preparation No Deficits Identified Cyber Intel Planner Cyber Intel Planner No Deficits Identified Driving Driving Comments Concerns regarding pt's ability to drive. M6 OT- IP Functional Cognition Start: 12/10/23 14:34 Freq: Status: Active Protocol: Document 12/10/23 14:34 CGR (Rec: 12/10/23 14:47 CGR [id number]) Cognitive Factors Limiting Selfcare Function Cognitive Ability Level of Alertness Alert Patient Orientation Name,Age,Birthday,Month,Date, Year,Day of Week,Place, Situation Attention Span Ability Capable of Focused Attention, Capable of Sustained Attention OT- Vision and Hearing OT- Hearing Assessment OT- Hearing Assessment WFL OT- Vision Assessment Visual Acuity Glasses All The Time Visual Attentiveness WFL Occular Pursuits WFL Vision Assessment Comments pt wears trifocals M7 OT- IP Mobility and Balance Start: 12/10/23 14:34 Freq: Status: Active Protocol: Document 12/10/23 14:34 CGR (Rec: 12/10/23 14:47 CGR [id number]) OT- Bed Mobility Assessment Supine to Sit Supine to Sit Assist Contact Guard Assistance Scooting Scooting to Edge of Bed Contact Guard Assistance OT-Transfer Assessment Sit to and From Stand Sit to and from Stand Contact Guard Assistance Transfers Transfer Ability Contact Guard Assistance,1 Person Assistance Technique Transfer Destination Bed,Chair Transfer Technique Stand Step Pivot Devices Transfer Assistive Devices Gait Belt,Front Wheeled Walker Comments Mobility Comments Pt ambulated minimally in the room with CGA. OT- Balance Assessment Sitting Balance and Reactions Static Sitting Balance Ability Good Dynamic Sitting Balance Ability Good M8 OT- IP Objective Assessments Start: 12/10/23 14:34 Freq: Status: Active Protocol: Document 12/10/23 14:34 CGR (Rec: 12/10/23 14:47 CGR [id number]) OT Gross Range of Motion Upper Extremity Range of Motion Assessment Right Impaired ROM Impairments Pt states she has a long standing injury to her R OT Strength Upper Extremity Strength Assessment Within Functional Limits Comments Strength Comments grossly 4+/5, R shld not tested OT- Coordination Assessment Upper Extremity Finger to Nose Test Within Functional Limits Finger Tapping Test Within Functional Limits OT-Muscle Tone Assessment Muscle Tone WNL Yes OT Sensation Assessment Edema Edema Absent M9 OT- IP Assessment and Plan Start: 12/10/23 14:34 Freq: Status: Active Protocol: Document 12/10/23 14:34 CGR (Rec: 12/10/23 14:47 CGR [id number]) OT Summary Assessment and Plan Potential Rehabilitation Potential Good Analytic Complexity at Evaluation Moderate Summary OT Impairments Balance,Functional Cognition, Functional Mobility,Grooming, Dressing,Toileting,Bathing, Toilet Transfers,Shower Transfers,Activity Tolerance Progress Towards Goals Slow Progress due to Cognition Assessment Summary Pt presents as a mod complexity evaluation s/p admit for confusion, likely from UTI. Pt appears to be clearing and performing close to her baseline. Pt will continue to benefit from 1-2 more OT sessions to address any further deficits. Recommend d/c home when medically stable. Goals Grooming Goal Independent Dressing Goal Independent Toileting Goal Independent Bathing Goal Independent Toilet Transfer Goal Independent Shower Transfer Goal Independent Days to Meet Goals 2 Frequency of Treatment Other frequency 5x a week Treatment Plan OT Treatment Plan ADL Training,Functional Cognition Training,Functional Mobility,Patient/Family Education,Discharge Planning Other Treatment Recommendations and Next Shower, dressing, other Treatment Focus concerns Discharge Recommendations OT Discharge Recommendations Home with Assistance Transportation Needs at Discharge Private Vehicle
--- NOTE | 2023-12-10 12:45 | PT.IIE ---
Surgical History (Last Reviewed 07/22/23 @ 09:07 by Harry Orourke MD) H/O gastric bypass H/O mastectomy History of back surgery History of hip replacement History of thyroidectomy Hx of bilateral cataract extraction (2012) Hx of cystoscopy (08/04/19) Nephrostomy status Medical History (Last Reviewed 12/10/23 @ 03:24 by Rosales Veronica DO) Anxiety Calculus of kidney Depression GI bleed Gross hematuria History of recurrent UTI (urinary tract infection) HTN (hypertension) Hypothyroid Nephrolithiasis Noncompliant neurogenic bladder Obstructive uropathy MORGAN on CPAP Peptic ulcer disease Pneumothorax Postmenopausal atrophic vaginitis Ureteral obstruction, left Urinary incontinence, mixed Physical Therapy Inpatient Evaluation/Re-Eval M1 PT/OT-IP Prior Functional Status Start: 12/10/23 10:27 Freq: NEEDED Status: Active Protocol: Document 12/10/23 12:02 MB (Rec: 12/10/23 12:45 MB [id number]) Medical Review Prior Functional Status Medical History Reviewed Yes Communication Unsure baseline diet and communication Mobility and Gait Pt reports she gait trains with 4WRW Activities of Daily Living and IADL's Not very clear. Pt states that she is supposed to be the caregiver for her and he cannot drive so she does and she states she does her bathing and dressing but then states she has caregivers each day and they assist with nephrostomy tubes. Social History Household Members spouse Living Arrangements House Number of Stairs To Enter/Railing? Ramp to enter Home Environment High Toilet Home Equipment Four Wheel Walker,Straight Cane,Shower Seat without Backrest,[employer] Advanced Operator Maintainer,Grab Bars Near Toilet,Grab Bars In Shower Employment Status Retired M2 PT-IP Current Condition Start: 12/10/23 10:27 Freq: NEEDED Status: Active Protocol: Document 12/10/23 12:02 MB (Rec: 12/10/23 12:45 MB [id number]) Physical Therapy Current Condition Current Condition Evaluation Date 12/10/23 Treatment Diagnosis Confusion M3 PT-IP Subjective Start: 12/10/23 10:27 Freq: NEEDED Status: Active Protocol: Document 12/10/23 12:02 MB (Rec: 12/10/23 12:45 MB [id number]) Subjective Physical Therapy Visit Type Type Initial Evaluation Visit Start Time 12:02 Visit Stop Time 12:22 Number of NARRATIVE WRITER Visits 0 Physical Therapy Visit Comments Patient Comments Pt states that her head hurts and she has tingling on head. Therapy Pain Assessment Pain When Pain Assessed At Rest Pain Present Pain Present Pain Reported Location Head Intensity 5 Scale Used RojasMadhuri (Faces) M4 PT-IP Mobility and Gait Start: 12/10/23 10:27 Freq: NEEDED Status: Active Protocol: Document 12/10/23 12:02 MB (Rec: 12/10/23 12:45 MB [id number]) PT-Transfer Assessment Sit to and From Stand Sit to and from Stand Contact Guard Assistance Equipment Transfer Assistive Device Gait Belt,Front Wheeled Walker Orthotic/Prosthetic Devices or Brace: No Transfers Transfer Destination Chair Transfer Technique Ambulation Transfer Ability Level of Assist Contact Guard Assistance Gait Assessment Gait Gait Assistance Required: Contact Guard Assist Distance (Feet) 5 Able to Maintain Weight Bearing Status Yes During Gait Assistive Devices Assistive Device Gait Belt,Front Wheeled Walker Orthotic/Prosthetic Devices or Brace: No Gait Deviations General Gait Pattern Decreased Stride Length, Decreased Feet Clearance, Flexed Trunk,Wide Based Gait Factors Limiting Gait Function Factors Limiting Gait Function Decreased Activity Tolerance, Poor Balance,Poor Safety Awareness PT-Balance Assessment Sitting Balance and Reactions Static Sitting Balance Ability Good Dynamic Sitting Balance Ability Good Standing Balance and Reactions Static Standing Balance Ability Good Dynamic Standing Balance Ability Fair Device Used RW M5 PT-IP Objective Assessments Start: 12/10/23 10:27 Freq: NEEDED Status: Active Protocol: Document 12/10/23 12:02 MB (Rec: 12/10/23 12:45 [id number]) Orientation Orientation/Cognition Level of Alertness Confusional State Orientation Name,Birthday,Month,Date,Year, Place,Situation Language Function Ability No Deficits Noted Safety Awareness Decreased Safety Awareness Memory Description No Deficits Noted Comments Pt is a poor historian as far as PLOF Gross Range of Motion Upper Extremity ROM Assessment Right Impaired Impairments Defer to OT but pt presents with right shoulder AROM limitations and painful movement Lower Extremity ROM Assessment Within Functional Limits Strength Lower Extremity Strength Knee B knee extension 4+/5 Ankle B ankle DF and great toe extension 4/5 Coordination Assessment Assessment Heel on Rivera Test Minimal Impairment Sensation Assessment Comments Sensation Comments Pt denies paresthesias M6 PT-IP Treatment Start: 12/10/23 10:27 Freq: NEEDED Status: Active Protocol: Document 10/07/24 12:02 MB (Rec: 12/10/23 12:45 MB [id number]) Physical Therapy Treatment Education Education Provided Safety M7 PT-IP Assessment and Plan Start: 12/10/23 10:27 Freq: NEEDED Status: Active Protocol: Document 12/10/23 12:02 MB (Rec: 12/10/23 12:45 MB [id number]) PT Summary Assessment and Plan Potential Rehabilitation Potential Good Status of Condition at Evaluation Evolving Summary Impairments Pain,Balance,Cognition,Bed Mobility,Transfers,Gait, Activity Tolerance Assessment Summary Pt is an 88 y/o female presenting with confusion and decreased I mobility. She has decreased right shoulder range and increased pain that she states is chronic. She is reporting increased head pain and tingling on frontal and top of head areas. Pt will benefit from ongoing PT to maximize I. Pt to go for MRI per nsg. Goals Bed Mobility Goal Independent Transfer Goal Independent,Front Wheeled Walker,Four Wheeled Walker Gait Goal Independent,Front Wheel Walker ,Four Wheel Walker Gait Distance 100 Days to Meet Goals 5 Frequency of Treatment Frequency Of Treatment Once a Day Treatment Plan Physical Therapy Treatment Plan Bed Mobility Training,Transfer Training,Gait Training, Therapeutic Exercise,Balance Retraining,Discharge Planning, Hot or Cold Pack,Neuromuscular Re-ed,Coordination Retraining ,Manual Therapy Recommendations To Nursing Amount of Assist Needed 1 Person Assist Discharge Recommendations PT Discharge Recommendations Home vs SNF Transportation Needs at Discharge Private Vehicle
[2023-12-10] MEDS: LORazepam 2 MG/ML INJ 0.5 MG IV (14:16)
--- NOTE | 2023-12-10 15:17 | CM.DANOTE ---
Patient is an 88 yo female who was admitted OBS Status on 12/10/23 for Confusion. Pt has [employer] and [employer] for insurance and her PCP is Dr. Sd Joshi. EMR was reviewed. Per MD, pt with chronic nephrostomy tubes bilateral at baseline and admitted for UTI and to have MRI to r/o further medical conditions as pt below baseline with mentation. Per PT/OT, recommending likely home with assist and HH but to r/o SNF. SW met bedside with pt and explained role and pt with delayed responses but able to answer appropriately with prolonged amount of time to answer. Pt confirms living situation and good support in , daughter (Camila, who lives in [facility]), and having daily paid home health aides who assist with changing her nephrostomy tube and other ADLs through her long term care social worker care insurance, [employer]. Pt confirmed a history of working with [facility] in the past as well as SNF placement ~10 years ago at [facility] but states she does not feel SNF was very helpful and she does not feel SNF needed at d/c and preference is home with HH at discharge and able to state that she can tell her mentation is below baseline and she feels strange. Pt has a close friend who assists with her medical care coordination, PRO Lopez, (ph#[phone]) whom the pt requests to be updated with her medical care as well as her daughter, Camila Urias, if needed. SW made [facility] referral and they will review and F2F completed but not scanned or sent yet. Plan: SW to follow for MRI to r/o any further medical needs and further PT/OT to confirm safe plan of home with spouse and private caregivers for nephrostomy tubes and new [facility] referral made. BIANCA Condon Discharge Planning/Care Management CM Discharge Assessment Start: 12/10/23 15:03 Freq: Status: Active Protocol: Document 12/10/23 15:04 BF (Rec: 12/10/23 15:15 BF [id number]) Discharge Planning Assessment Assigned Multimedia Services Manager BIANCA Knapp DPOA/Assigned Designee Name spouse and Dtr Advance Directives? Yes Advance Directives on File Yes History Provided By Patient,Medical Record Has Patient been admitted in last 30 No days? Comment Last admit in July 2023 and was transferred for higher level of care Prior Living Arrangements House Household Members spouse Type of transporation used prior to Drives own vehicle admit Independent with ADL's Yes Is patient alert and oriented? Yes: currently confused Comment Pt has paid caregivers for her nephrostomy tube at home Caregiver for Another Yes: spouse Comment uses 4WW: one for inside the house. another is more portable and goes easily in the car pt states. a third one for outside the house. Patient/Family Preference Retirement Facility,Home with Home Health Comment HH vs SNF pending progress but currently OBS and pt wants home Barriers to Discharge No Discharge Plan Home with Home Health Community Services Physical Therapy,Home Health Nurse Transportation Arrangement Family or caregivers to provide transport at time of discharge. Referrals Initiated Home Health If patient plan is home with home health Yes : Has signed face to face form been completed? Medicare Choice List Provided Yes Medicare choice list reviewed on patient electronic tablet with SNF/HH Preference Only [facility] Whiteboard Updated in Patient Room with Yes name and ext. # of Multimedia Services Manager Review Status In Process Please Provide Date Initial DC 12/10/23 Assessment Was Performed Next Review Type Continued Stay Review
[2023-12-10 20:45] LABS: Alanine Aminotransferase 18 IU/L (<35); Albumin 3.4 g/dL (3.5-5.0); Alkaline Phosphatase 145 U/L (38-126); Aspartate Aminotransferase 21 IU/L (14-36); BUN Creatinine Ratio 19.1 (6-22); Bilirubin Total 0.3 mg/dL (0.2-1.3); Blood Urea Nitrogen 37 mg/dL (7-17); Calcium 8.9 mg/dL (8.4-10.2); Carbon Dioxide 24 mmol/L (22-32); Chloride 107 mmol/L (98-107); Estimated Glomerular Filt Rate 24 mL/min (>60); Globulin 3.4 g/dL (1.7-4.1); Glucose 186 mg/dL (80-110); HEMOLYSIS < 15 (0-50); Magnesium 2.1 mg/dL (1.6-2.3); Potassium 5.1 mmol/L (3.4-5.1); Sodium 135 mmol/L (137-145); Total Protein 6.8 g/dL (6.3-8.2)
[2023-12-10] MEDS: ATORVASTATIN 20 MG TABLET 40 MG PO (20:52)
[2023-12-10] MEDS: cefTRIAXone 1,000 MG in SODIUM CHLORIDE 0.9% 100 ML 200 MG IV (20:52)
[2023-12-11] VITALS: BP 152/70; PULSE 70; TEMP 36.4; O2SAT 98
[2023-12-11 04:00] VITALS: BP 144/83; PULSE 80; RESP 16; TEMP 36.3; O2SAT 96
[2023-12-11] MEDS: LEVOTHYROXINE 88 MCG TABLET PO (06:31)
[2023-12-11 08:00] VITALS: BP 141/81; PULSE 78; RESP 17; TEMP 36.2; O2SAT 99
[2023-12-11 08:33] LABS: Add Manual Diff / Slide Review NO; Basophils Absolute Auto 0 /uL (0-100); Basophils Percent Auto 0.6 % (0-2); Eosinophils Absolute Auto 300 /uL (0-450); Eosinophils Percent Auto 3.8 % (2-4); Hemoglobin 11.5 g/dL (12.0-16.0); Lymphocytes Absolute Auto 1000 /uL (1100-4500); Lymphocytes Percent Auto 13.2 % (25-40); Mean Corpuscular HGB Conc 31.9 % (30-36); Mean Corpuscular Hemoglobin 26.1 PG (26-34); Mean Corpuscular Volume 81.8 fL (80-100); Monocytes Absolute Auto 700 /uL (0-900); Monocytes Percent Auto 9.1 % (3-14); Neutrophils Absolute Auto 5400 /uL (1500-7000); Neutrophils Percent Auto 73.3 % (50-75); Platelet Count 220 X10^3/uL (150-400); White Blood Cell Count 7.3 X10^3/uL (4.5-11.0)
--- NOTE | 2023-12-11 08:39 | DI.ECHO.S_ITS ---
[facility] : : [address] : : [place] : : [id number] : : Phone: [phone] Echocardiogram Report + + :Name: DALLIN MANLEY Study Date: 12/11/2023 Height: 58 in : :[facility] ReadingLocation: Weight: 210 lb : : Gender: Female BSA: 1.9 m2 : :: 1935 Age: 88 yrs BP: 151/85 mmHg: :Reason For Study: STROKE : :Ordering Physician: : :RADHA ZAMORA Performed By: Shawn Segal : :Referring: RADHA ZAMORA : + + Interpretation Summary The ejection fraction is estimated to be 55-60%. Diastolic parameters suggest probable normal left ventricular diastolic function and normal filling pressures. The right ventricle is normal in size and function. There is mild mitral regurgitation. There is mild aortic regurgitation. Pulmonary artery pressures cannot be estimated because of the lack of a measurable TR jet velocity but the IVC suggests a CVP of around 3 mmHg. No significant change compared to echo 09/27/2020. Procedure: A two-dimensional transthoracic echocardiogram with color flow and Doppler was performed. The study quality was technically adequate. Comparison is made with the echocardiogram of 09/27/2020. The patient was in normal sinus rhythm during the exam. Left Ventricle: The left ventricle is normal in size. There is normal left ventricular wall thickness. There is no ventricular septal defect visualized. The ejection fraction is estimated to be 55-60%. There are no focal wall motion abnormalities. Diastolic parameters suggest probable normal left ventricular diastolic function and normal filling pressures. Right Ventricle: The right ventricle is normal in size and function. Atria: The left atrial size is normal. Right atrial size is normal. There is no Doppler evidence for an atrial septal defect. Mitral Valve: There is mild mitral annular calcification. The mitral valve is normal. There is mild mitral regurgitation. Aortic Valve: The aortic valve is trileaflet. The aortic valve is slightly calcified. The aortic valve opens well. There is no aortic valve stenosis. There is mild aortic regurgitation. Tricuspid Valve: The tricuspid valve is normal in structure and function. There is trace tricuspid regurgitation. Pulmonary artery pressures cannot be estimated because of the lack of a measurable TR jet velocity but the IVC suggests a CVP of around 3 mmHg. Pulmonic Valve: The pulmonic valve is normal in structure and function. There is no pulmonic valvular regurgitation. Great Vessels: The aortic root is normal size. The dimensions of the ascending aorta are normal. The pulmonary artery is normal size. The IVC is of normal diameter and collapses greater than 50% with a sniff. This suggests a low right atrial pressure of 3 mm Hg. Pericardium/ Pleura There is no pericardial effusion. There is no pleural effusion. MMode/2D Measurements & Calculations LVIDd: 4.9 cm LVOT diam: 1.9 cm LVIDs: 3.2 cm Ao root diam: 2.8 cm FS: 35.7 % asc Aorta Diam: 3.3 cm IVSd: 1.0 cm LVPWd: 0.88 cm LV zamarripa. diameter/BSA (cm/m^2): 2.6 LV sys. diameter/BSA (cm/m^2): 1.7 LA A2 area: 12.2 cm2 RA long axis: 4.0 cm LA A4 area: 16.6 cm2 RA area: 11.0 cm2 LA length (vol): 4.2 cm RA vol: 25.8 ml LA vol: 41.3 ml RA : 13.9 ml/m2 LA vol index: 22.2 ml/m2 IVC diam: 0.92 cm RVD1 (basal): 2.9 cm RVD2 (mid): 2.2 cm TAPSE: 2.2 cm Doppler Measurements & Calculations Ao V2 max: 178.0 cm/sec LVOT Max Cedrick: 103.5 cm/sec Ao V2 mean: 126.5 cm/sec LV V1 max P.3 mmHg Ao max P.7 mmHg LV V1 VTI: 20.8 cm Ao mean P.1 mmHg SULMA(I,D): 1.6 cm2 Ao V2 VTI: 38.0 cm SULMA(V,D): 1.7 cm2 sev ratio: 0.55 SULMA indexed to BSA (cm^2/m^2): 0.85 MV E max cedrick: 71.7 cm/sec PA V2 max: 97.4 cm/sec MV A max cedrick: 109.0 cm/sec PA V2 mean: 70.1 cm/sec MV E/A: 0.66 PA mean P.2 mmHg Med Peak E' Cedrick: 5.6 cm/sec PA pr(Accel): 41.3 mmHg E/E' med: 12.8 Lat Peak E' Cedrick: 7.3 cm/sec E/E' lat: 9.8 E/e' average: 11.3 MV dec time: 0.16 sec SVLVOT): 60.4 ml Reading Physician:08:15 PM
[2023-12-11] MEDS: ENOXAPARIN 40 MG/0.4 ML SYRINGE SUBCUT (08:45)
--- NOTE | 2023-12-11 11:08 | PT.IPTN ---
Physical Therapy Treatment Note M2 PT-IP Current Condition Start: 12/10/23 10:27 Freq: NEEDED Status: Active Protocol: Document 12/10/23 12:02 MB (Rec: 12/10/23 12:45 MB [id number]) Physical Therapy Current Condition Current Condition Evaluation Date 12/10/23 Treatment Diagnosis Confusion M3 PT-IP Subjective Start: 12/10/23 10:27 Freq: NEEDED Status: Active Protocol: Document 12/11/23 11:27 TS (Rec: 12/11/23 11:40 TS [id number]) Subjective Physical Therapy Visit Type Type Treatment Note Visit Start Time 11:08 Visit Stop Time 11:26 Number of DEMAND PLANNING ANALYST Visits 1 Physical Therapy Visit Comments Patient Comments Pt reports her brain isn't working. She is agreeable to PT. M4 PT-IP Mobility and Gait Start: 12/10/23 10:27 Freq: NEEDED Status: Active Protocol: Document 12/11/23 11:27 TS (Rec: 12/11/23 11:40 TS [id number]) PT-Transfer Assessment Sit to and From Stand Sit to and from Stand Contact Guard Assistance Equipment Transfer Assistive Device Gait Belt,Front Wheeled Walker Orthotic/Prosthetic Devices or Brace: No Comments Mobility Comments Pt scoots to edge of chair SBA with max cues. STS with FWW CGA, pt requires cues for STS sequencing. She ambulates with a slow gait 2x20'CGA/SBA with FWW, had no buckling or LOB. She has some SOB after ambulation, Spo2 99% on RA. Pt was left in the chair, all needs met. Gait Assessment Gait Gait Assistance Required: Contact Guard Assist Distance (Feet) 40 Able to Maintain Weight Bearing Status Yes During Gait Assistive Devices Assistive Device Gait Belt,Front Wheeled Walker Gait Deviations General Gait Pattern Decreased Stride Length, Decreased Feet Clearance, Flexed Trunk,Wide Based Gait Factors Limiting Gait Function Factors Limiting Gait Function Decreased Activity Tolerance, Poor Balance,Poor Safety Awareness PT-Balance Assessment Sitting Balance and Reactions Static Sitting Balance Ability Good Dynamic Sitting Balance Ability Good Standing Balance and Reactions Static Standing Balance Ability Good Dynamic Standing Balance Ability Fair Device Used FWW M5 PT-IP Objective Assessments Start: 12/10/23 10:27 Freq: NEEDED Status: Active Protocol: Document 12/10/23 12:02 MB (Rec: 10/07/24 12:45 MB [id number]) Orientation Orientation/Cognition Level of Alertness Confusional State Orientation Name,Birthday,Month,Date,Year, Place,Situation Language Function Ability No Deficits Noted Safety Awareness Decreased Safety Awareness Memory Description No Deficits Noted Comments Pt is a poor historian as far as PLOF Gross Range of Motion Upper Extremity ROM Assessment Right Impaired Impairments Defer to OT but pt presents with right shoulder AROM limitations and painful movement Lower Extremity ROM Assessment Within Functional Limits Strength Lower Extremity Strength Knee B knee extension 4+/5 Ankle B ankle DF and great toe extension 4/5 Coordination Assessment Assessment Heel on Rivera Test Minimal Impairment Sensation Assessment Comments Sensation Comments Pt denies paresthesias M6 PT-IP Treatment Start: 12/10/23 10:27 Freq: NEEDED Status: Active Protocol: Document 12/11/23 11:27 TS (Rec: 12/11/23 11:40 TS [id number]) Physical Therapy Treatment Education Education Provided Safety M7 PT-IP Assessment and Plan Start: 12/10/23 10:27 Freq: NEEDED Status: Active Protocol: Document 12/11/23 11:27 TS (Rec: 12/11/23 11:40 TS [id number]) PT Summary Assessment and Plan Potential Rehabilitation Potential Good Summary Impairments Pain,Balance,Cognition,Bed Mobility,Transfers,Gait, Activity Tolerance Progress Towards Goals Slow Progress due to Activity Tolerance Assessment Summary Latonia is limited with her mobility due to poor activity tolerance. She is CGA for STS and ambulation with FWW. She has some SOB and fatigue with gait. She requires cues for scooting in the chair and for STS. She is confused and can follow instructions most of the time. She lacks good safety awareness. PT is recommending Home vs SNF. Pt could benefit from SNF to improve activity tolerance. Goals Bed Mobility Goal Independent Transfer Goal Independent,Front Wheeled Walker,Four Wheeled Walker Gait Goal Independent,Front Wheel Walker ,Four Wheel Walker Gait Distance 100 Days to Meet Goals 5 Frequency of Treatment Frequency Of Treatment Once a Day Treatment Plan Physical Therapy Treatment Plan Bed Mobility Training,Transfer Training,Gait Training, Therapeutic Exercise,Balance Retraining,Discharge Planning, Hot or Cold Pack,Neuromuscular Re-ed,Coordination Retraining ,Manual Therapy Recommendations To Nursing Amount of Assist Needed 1 Person Assist Discharge Recommendations PT Discharge Recommendations Home vs SNF Other Discharge Recommendations Would benefit from SNF. Transportation Needs at Discharge Private Vehicle,Wheelchair/ Cabulance
--- NOTE | 2023-12-11 11:08 | PT.IPTN ---
Current Diagnoses Cerebral infarction, unspecified (12/11/23) Physical Therapy Treatment Note M2 PT-IP Current Condition Start: 12/10/23 10:27 Freq: NEEDED Status: Active Protocol: Document 12/10/23 12:02 MB (Rec: 12/10/23 12:45 MB [id number]) Physical Therapy Current Condition Current Condition Evaluation Date 12/10/23 Treatment Diagnosis Confusion M3 PT-IP Subjective Start: 12/10/23 10:27 Freq: NEEDED Status: Active Protocol: Document 12/11/23 11:27 TS (Rec: 12/11/23 11:40 TS [id number]) Subjective Physical Therapy Visit Type Type Treatment Note Visit Start Time 11:08 Visit Stop Time 11:26 Number of GLASS MECHANIC Visits 1 Physical Therapy Visit Comments Patient Comments Pt reports her brain isn't working. She is agreeable to PT. M4 PT-IP Mobility and Gait Start: 12/10/23 10:27 Freq: NEEDED Status: Active Protocol: Document 12/11/23 11:27 TS (Rec: 12/11/23 11:40 TS [id number]) PT-Transfer Assessment Sit to and From Stand Sit to and from Stand Contact Guard Assistance Equipment Transfer Assistive Device Gait Belt,Front Wheeled Walker Orthotic/Prosthetic Devices or Brace: No Comments Mobility Comments Pt scoots to edge of chair SBA with max cues. STS with FWW CGA, pt requires cues for STS sequencing. She ambulates with a slow gait 2x20'CGA/SBA with FWW, had no buckling or LOB. She has some SOB after ambulation, Spo2 99% on RA. Pt was left in the chair, all needs met. Gait Assessment Gait Gait Assistance Required: Contact Guard Assist Distance (Feet) 40 Able to Maintain Weight Bearing Status Yes During Gait Assistive Devices Assistive Device Gait Belt,Front Wheeled Walker Gait Deviations General Gait Pattern Decreased Stride Length, Decreased Feet Clearance, Flexed Trunk,Wide Based Gait Factors Limiting Gait Function Factors Limiting Gait Function Decreased Activity Tolerance, Poor Balance,Poor Safety Awareness PT-Balance Assessment Sitting Balance and Reactions Static Sitting Balance Ability Good Dynamic Sitting Balance Ability Good Standing Balance and Reactions Static Standing Balance Ability Good Dynamic Standing Balance Ability Fair Device Used FWW M5 PT-IP Objective Assessments Start: 12/10/23 10:27 Freq: NEEDED Status: Active Protocol: Document 12/10/23 12:02 MB (Rec: 12/10/23 12:45 MB [id number]) Orientation Orientation/Cognition Level of Alertness Confusional State Orientation Name,Birthday,Month,Date,Year, Place,Situation Language Function Ability No Deficits Noted Safety Awareness Decreased Safety Awareness Memory Description No Deficits Noted Comments Pt is a poor historian as far as PLOF Gross Range of Motion Upper Extremity ROM Assessment Right Impaired Impairments Defer to OT but pt presents with right shoulder AROM limitations and painful movement Lower Extremity ROM Assessment Within Functional Limits Strength Lower Extremity Strength Knee B knee extension 4+/5 Ankle B ankle DF and great toe extension 4/5 Coordination Assessment Assessment Heel on Rivera Test Minimal Impairment Sensation Assessment Comments Sensation Comments Pt denies paresthesias M6 PT-IP Treatment Start: 12/10/23 10:27 Freq: NEEDED Status: Active Protocol: Document 12/11/23 11:27 TS (Rec: 12/11/23 11:40 TS [id number]) Physical Therapy Treatment Education Education Provided Safety M7 PT-IP Assessment and Plan Start: 12/10/23 10:27 Freq: NEEDED Status: Active Protocol: Document 12/11/23 11:27 TS (Rec: 12/11/23 11:40 TS [id number]) PT Summary Assessment and Plan Potential Rehabilitation Potential Good Summary Impairments Pain,Balance,Cognition,Bed Mobility,Transfers,Gait, Activity Tolerance Progress Towards Goals Slow Progress due to Activity Tolerance Assessment Summary Latonia is limited with her mobility due to poor activity tolerance. She is CGA for STS and ambulation with FWW. She has some SOB and fatigue with gait. She requires cues for scooting in the chair and for STS. She is confused and can follow instructions most of the time. She lacks good safety awareness. PT is recommending Home vs SNF. Pt could benefit from SNF to improve activity tolerance. Goals Bed Mobility Goal Independent Transfer Goal Independent,Front Wheeled Walker,Four Wheeled Walker Gait Goal Independent,Front Wheel Walker ,Four Wheel Walker Gait Distance 100 Days to Meet Goals 5 Frequency of Treatment Frequency Of Treatment Once a Day Treatment Plan Physical Therapy Treatment Plan Bed Mobility Training,Transfer Training,Gait Training, Therapeutic Exercise,Balance Retraining,Discharge Planning, Hot or Cold Pack,Neuromuscular Re-ed,Coordination Retraining ,Manual Therapy Recommendations To Nursing Amount of Assist Needed 1 Person Assist Discharge Recommendations PT Discharge Recommendations SNF Rehab,Acute Rehab,SNF vs Acute Rehab Transportation Needs at Discharge Private Vehicle,Wheelchair/ Cabulance
[2023-12-11 11:35] VITALS: BP 151/87; PULSE 78; RESP 15; TEMP 36.5; O2SAT 98
[2023-12-11 11:53] LABS: Alanine Aminotransferase 16 IU/L (<35); Albumin 3.7 g/dL (3.5-5.0); Albumin Globulin Ratio 1.2 (1.0-2.8); Alkaline Phosphatase 164 U/L (38-126); Aspartate Aminotransferase 24 IU/L (14-36); BUN Creatinine Ratio 18.5 (6-22); Bilirubin Total 0.4 mg/dL (0.2-1.3); Blood Urea Nitrogen 33 mg/dL (7-17); Calcium 9.3 mg/dL (8.4-10.2); Carbon Dioxide 24 mmol/L (22-32); Chloride 107 mmol/L (98-107); Estimated Glomerular Filt Rate 27 mL/min (>60); Globulin 3.2 g/dL (1.7-4.1); Glucose 129 mg/dL (80-110); HEMOLYSIS < 15 (0-50); Sodium 138 mmol/L (137-145); Total Protein 6.9 g/dL (6.3-8.2)
[2023-12-11 11:55] LABS: Potassium 5.4 mmol/L (3.4-5.1)
--- NOTE | 2023-12-11 12:30 | OT.IP.TRT ---
Occupational Therapy Treatment Note M2 OT-IP Current Condition Start: 12/10/23 14:34 Freq: Status: Active Protocol: Document 12/10/23 14:34 CGR (Rec: 12/10/23 14:47 CGR [id number]) Occupational Therapy Current Condition Current Condition Evaluation Date 12/10/23 Treatment Diagnosis confusion, UTI Diagnosis Onset Date 12/10/23 M3 OT- IP Subjective and Pain Start: 12/10/23 14:34 Freq: Status: Active Protocol: Document 12/11/23 12:35 [facility] (Rec: 12/11/23 12:52 [facility] [id number]) OT- Subjective Occupational Therapy Visit Type Type Treatment Note Visit Start Time 11:50 Visit Stop Time 13:30 Notes MRI results indicated subacute infarctions within Left MARINO involving superior medial Left frontal lobe. Occupational Therapy Visit Comments Patient Comments Pt agreed to get up to wash her hands. Patient/Caregiver Goals TO get better. OT Pain Assessment Pain When Pain Assessed At Rest Pain Present Pain Present Denied Pain M4 OT- IP ADL's Start: 12/10/23 14:34 Freq: Status: Active Protocol: Document 12/11/23 12:35 [facility] (Rec: 12/11/23 12:52 [facility] [id number]) OT [id number] Comments OT Self-Feeding Comments Not at lunch time. OT ADL-Grooming Comments OT Grooming Comments Pt able to wash her hands while standing at the sink. OT ADL-Oral Care Comments Oral Care Comments Pt declined. OT ADL-Dressing Comments OT Dressing Comments Not performed. OT ADL-Toileting Comments OT Toileting Comments Pt not having to go. OT ADL-Bathing Comments OT Bathing Comments Pt declined to perform M5 OT- IP IADL's Start: 12/10/23 14:34 Freq: Status: Active Protocol: Document 12/11/23 12:35 [facility] (Rec: 12/11/23 12:52 [facility] [id number]) OT-Instrumental Activities of Daily Living Home Safety Awareness Home Safety Comments Pt needing increased time to get her answers out and slow to initiate her movements. Medication Management Medication Management Comments Pt will benefit from assist. Money Management Money Management Comments Pt will benefit from assist as having difficulty to calculate numbers at this time and needing increased time. Meal Preparation Meal Preparation Comments Pt will need assist due to decreased initiation and motor planning at this time. Medical Record Administrator Medical Record Administrator Comments Pt will need assist. M6 OT- IP Functional Cognition Start: 12/10/23 14:34 Freq: Status: Active Protocol: Document 12/11/23 12:35 [facility] (Rec: 12/11/23 12:52 [facility] [id number]) Cognitive Factors Limiting Selfcare Function Cognitive Comments Cognitive Assessment Comments Increased time to follow commands, process information, and initiate movements. Pt realizes that cognitively she is far from her baseline and much slower now. Pt is open to going to acute rehab. Pt scored 350 seconds on [place] Making Part B, score maybe off as pt able to identify numbers/letters faster than she is able to move her hand to draw the lines between numbers and letters. Pt will benefit from SAP PORTAL ARCHITECT eval. OT- Vision and Hearing OT- Vision Assessment Vision Assessment Comments WFL for visual hsu. At times pt gaze is fixed and unable to move her eyes on command at times. M7 OT- IP Mobility and Balance Start: 12/10/23 14:34 Freq: Status: Active Protocol: Document 12/11/23 12:35 [facility] (Rec: 12/11/23 12:52 [facility] [id number]) OT-Transfer Assessment Sit to and From Stand Sit to and from Stand Minimal Assistance,Moderate Assistance Transfers Transfer Ability Minimal Assistance Technique Transfer Destination Bed Devices Transfer Assistive Devices Gait Belt,Front Wheeled Walker Comments Mobility Comments CONRAD to MODA to stand, needing assist to scoot to the from of the recliner and assist to stand to the FWW. Once up on her feet, vc to keep the FWW closer to her and assist for balance. Pt just able to get to the sink and back and tiring. OT- Balance Assessment Sitting Balance and Reactions Static Sitting Balance Ability Good Dynamic Sitting Balance Ability Fair Standing Balance and Reactions Static Standing Balance Ability Fair Dynamic Standing Balance Ability Poor M8 OT- IP Objective Assessments Start: 12/10/23 14:34 Freq: Status: Active Protocol: Document 12/10/23 14:34 CGR (Rec: 12/10/23 14:47 CGR [id number]) OT Gross Range of Motion Upper Extremity Range of Motion Assessment Right Impaired ROM Impairments Pt states she has a long standing injury to her R OT Strength Upper Extremity Strength Assessment Within Functional Limits Comments Strength Comments grossly 4+/5, R shld not tested OT- Coordination Assessment Upper Extremity Finger to Nose Test Within Functional Limits Finger Tapping Test Within Functional Limits OT-Muscle Tone Assessment Muscle Tone WNL Yes OT Sensation Assessment Edema Edema Absent M9 OT- IP Assessment and Plan Start: 12/10/23 14:34 Freq: Status: Active Protocol: Document 12/11/23 12:35 [facility] (Rec: 12/11/23 12:52 [facility] [id number]) OT Summary Assessment and Plan Potential Rehabilitation Potential Good Analytic Complexity at Evaluation Moderate Summary OT Impairments Balance,Functional Cognition, Functional Mobility,Grooming, Dressing,Toileting,Bathing, Toilet Transfers,Shower Transfers,Activity Tolerance Progress Towards Goals Slow Progress due to Medical Issues,Slow Progress due to Activity Tolerance,Slow Progress due to Cognition Assessment Summary Pt found to have a subacute infarction within Left MARINO territory involving superior medial Left frontal lobe which is highly impacting her thinking, speed of processing and initiating movements. Pt would greatly benefit from acute rehab and also be have SAP PORTAL ARCHITECT eval. Goals Grooming Goal Independent Dressing Goal Independent Toileting Goal Independent Bathing Goal Independent Toilet Transfer Goal Independent Shower Transfer Goal Independent Days to Meet Goals 15 Frequency of Treatment Other frequency 5x a week Treatment Plan OT Treatment Plan ADL Training,Functional Cognition Training,Functional Mobility,Patient/Family Education,Discharge Planning Other Treatment Recommendations and Next Shower, dressing, other Treatment Focus concerns Discharge Recommendations OT Discharge Recommendations Acute Rehab Transportation Needs at Discharge Private Vehicle
--- NOTE | 2023-12-11 13:45 | PM.PN.1 ---
Subjective Subjective Date Patient Seen: 12/11/23 Time Patient Seen: 13:45 Interval history: Patient seen in [facility] for PCP, Dr. Joshi. Patient had unremarkable night. Still continues to have word-finding difficulties, confusion and word salad. MRI was done which shows subacute infarct in the area of the MARINO. Patient denies any pain or shortness a breath or other concerns Patient not able to give a lot of information other than she wants to get back in bed. Denies difficulty eating or chest pain or other concerns. 12 point review of system is otherwise unremarkable Exam Vital Signs (past 8 hours): - 12/11/23 08:00 12/11/23 11:35 Temperature 97.1 F L 97.7 F Pulse Rate 78 78 Respiratory Rate 17 15 Blood Pressure 141/81 H 151/87 H Pulse Oximetry 99 98 Oxygen Flow Rate 0 0 Oxygen Delivery Method Room Air Oxygen Flow Rate 0 Narrative Exam Narrative: Afebrile vital signs are stable HEENT is unremarkable Neck: Supple without adenopathy Chest: Clear to auscultation without wheezes rhonchi or crackles Cor: Regular rate and rhythm without a murmur Abdomen: Positive bowel sounds, soft, nontender, nondistended Extremities: No edema, pulses intact Neurologic exam: No localizing findings Patient with difficulty responding though she can let me know she wants to get back in bed. She states she just feels slow. Objective Labs 12/11/23 08:02 12/11/23 08:02 Labs: Laboratory Results - last 24 hr 12/10/23 12/11/23 19:42 08:02 WBC 7.3 RBC 4.40 Hgb 11.5 L Hct 36.0 MCV 81.8 MCH 26.1 MCHC 31.9 RDW 18.0 H Plt Count 220 Neut % (Auto) 73.3 Lymph % (Auto) 13.2 L Mcminn % (Auto) 9.1 Eos % (Auto) 3.8 Baso % (Auto) 0.6 Neut # (Auto) 5400 Lymph # (Auto) 1000 L Mcminn # (Auto) 700 Eos # (Auto) 300 Baso # (Auto) 0 Sodium 135 L 138 Potassium 5.1 5.4 H Chloride 107 107 Carbon Dioxide 24 24 BUN 37 H 33 H Creatinine 1.94 H 1.78 H Estimated GFR 24 L 27 L BUN/Creatinine Ratio 19.1 18.5 Glucose 186 H 129 H Calcium 8.9 9.3 Magnesium 2.1 Total Bilirubin 0.3 0.4 AST 21 24 ALT 18 16 Alkaline Phosphatase 145 H 164 H Total Protein 6.8 6.9 Albumin 3.4 L 3.7 Globulin 3.4 3.2 Albumin/Globulin Ratio 1.0 1.2 PFSH Medical History Noncompliant neurogenic bladder Urinary incontinence, mixed Nephrolithiasis Postmenopausal atrophic vaginitis Ureteral obstruction, left MORGAN on CPAP Obstructive uropathy History of recurrent UTI (urinary tract infection) Gross hematuria Pneumothorax Peptic ulcer disease Depression Anxiety GI bleed Calculus of kidney HTN (hypertension) Hypothyroid Surgical History History of thyroidectomy Nephrostomy status Hx of cystoscopy (08/04/19) H/O mastectomy History of hip replacement H/O gastric bypass History of back surgery Hx of bilateral cataract extraction (2012) Family History Father Seizures Mother Heart disease Diabetes mellitus Brother No significant medical problems Sister Diabetes mellitus Grandmother Diabetes mellitus Social History household members: spouse Smoking Status: Never smoker alcohol intake: never eating out: rarely or never Type(s) of exercise: none Assessment & Plan Assessment & Plan narrative: 88yo F with indwelling nephrostomies presents with acute confusion #encephalopathy, cause unclear infectious vs structural. New frontal malacia noted on CT but not noted on August scan. MRI ordered and shows evidence of subacute infarcts which could be the causative agent or certainly contributing to her presentation. PT OT and speech therapy have been consulted. Patient was started on aspirin and atorvastatin. We will go ahead and order an echo. #UTI #chronic indwelling nephrostomy #chronic kidney disease stage 4, with improvement today. Will recheck in the morning. treating with rocephin, continue q24h and hydrate #acquired hypothyroidism stable continue home 88mcg dose #hx of diabetes, diet controlled not on meds, monitor #hx of gerd stable continue ppi #hx of hyperlipidemia stable on home statin, noted Dispo: Admit obsv for further workup PCP: Adi MDM: Daughter code: DNR/DNI 57 minutes spent with patient in reviewing chart and discussing with physician, nursing, meeting with patient, formulating a plan and documentation. Time-Based Coding :: [TOTAL MINUTES] spent with patient and on the chart (including review of chart, obtaining history, exam, reviewing outside data, placing orders, documenting exam and treatment plan, and counseling patient) on [DATE]. Quality VTE Deep Vein Thrombosis/Pulmonary Embolism Present on Admission: No
--- NOTE | 2023-12-11 15:13 | DIET.CONS ---
Dietary Consultation Note Admission Date: 12/11/2023 12:43 Assessment: 88 y F admitted for confusion. Nutrition screened for low MNA. Pt working w/ therapy at attempted visit, EMR reviewed. Average recorded po intake 72%. DFM reviewed for meal composition. 4% weight loss in 5 months per EMR, non-severe. Will continue to monitor po intakes. No nutritional interventions needed at this time. Ht: 147.32 cm Wt: 95.254 kg BMI: 43.9 UBW: 99.79 kg on 06/04/23, 99.5 kg on 07/22/23 Last BM: 12/11/23 (12/11/23 10:02) MNA: 8 Michael Score: 19 Diet: 12/10/23 Breakfast General (Regular) Diet Diet Modifications: Food Texture: Level 7 - Regular Liquid Consistency: Level 0 - Thin Nutrition Percent Meal Consumed 90 12/11/23 12:46 Percent Meal Consumed 75% 12/10/23 18:00 Percent Meal Consumed 50% 12/10/23 08:46 Labs: RBC 4.40 X10^6/uL (4.0-5.2) 12/11/23 08:02 Hgb 11.5 g/dL (12.0-16.0) L 12/11/23 08:02 Hct 36.0 % (36-46) 12/11/23 08:02 Creatinine 1.78 mg/dL (0.52-1.04) H 12/11/23 08:02 Electronically Signed by: Maude Zafar 12/11/23 15:13 Clinical Dietitian [address] [id number]
[2023-12-11 16:00] VITALS: BP 151/85; PULSE 84; RESP 14; TEMP 36.6; O2SAT 98
--- NOTE | 2023-12-11 16:10 | ST.IPIE ---
Visit Care Team Role Provider Type Rosales Veronica DO Emergency Provider Physician Referring Provider Specialty: Emergency Medicine Address: [address] [place] [address], [id number] Email: [email or web address] Sd Joshi MD Attending Provider Physician Primary Care Provider Specialty: Family Practice Address: [facility] [place], [address] Email: [email or web address] Shawn Conrad MD Admit Provider Physician Other Providers Specialty: Family Practice Address: [address] [place] [address], [address], [place], [address] Email: [email or web address] Current Diagnoses Cerebral infarction, unspecified (12/11/23) Past Medical History (Last Reviewed 12/10/23 @ 03:24 by Rosales Vernoica DO) Anxiety (Medical) Calculus of kidney (Medical) Depression (Medical) GI bleed (Medical) Gross hematuria (Medical) History of recurrent UTI (urinary tract infection) (Medical) HTN (hypertension) (Medical) Hypothyroid (Medical) Nephrolithiasis (Medical) Noncompliant neurogenic bladder (Medical) Obstructive uropathy (Medical) MORGAN on CPAP (Medical) Peptic ulcer disease (Medical) Pneumothorax (Medical) Postmenopausal atrophic vaginitis (Medical) Ureteral obstruction, left (Medical) Urinary incontinence, mixed (Medical) ST IP Initial Evaluation Report CARE AIDE Adult Cognitive Linguistic Eval Start: 12/11/23 15:40 Freq: Status: Active Protocol: Document 12/11/23 15:40 SS (Rec: 12/11/23 16:09 SS [id number]) Adult Cognitive Linguistic Evaluation Session Time Visit Start Time 15:10 Visit Stop Time 15:35 Total Visit Minutes 25 Visit Information Visit Number Initial Evaluation Referral Referring Provider Sd Joshi Reason for Referral Confusion, delayed response time, word finding difficulty Setting Assessment Location Acute Care Visit Type Note Type Initial evaluation Next Note Type Next Note Type Treatment Note Patient Information Identification Type Name,Wristband Patient History Pt is an 88-year-old female admitted to ED on 12/09 with encephalopathy and UTI. She was referred for cognitive- communication assessment and treatment. PMHx includes chronic UTIs, anxiety, depression, and hypertension. Per H&P from 12/09, Workup in ED did show a UTI however she is chronically instrumented with bilateral nephrostomies 2 /2 obstruction and says this does not feel like her usual UTIs. 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 She is fully oriented but does have some mild word salad today. Discussed with her and caregiver on the phone today. Today will try to get MRI and do therapy evals, treat UTI. Previous Therapy Previous Speech-Language Therapy No Subjective Patient Report Pt expressed her brain is just not working and feels broken. She reported she lives with spouse and caregiver assists with medical management of tubes. 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 Mental Status Confused,Lethargic,Impulsive Assessment Oral Motor Examination Completed Yes Results OME WNL. Informal Assessment Receptive Language Normal No Receptive Language Impairment(s) Comprehension of complex yes/ no questions,Following 2-step commands,Following 3-step commands,Comprehension of conversation Expressive Language Normal No Expressive Language Impairment(s) Confrontation naming,Divergent naming,Expression of complex thoughts/ideas Pragmatic Language Normal No Pragmatic Language Impairment(s) Turn-taking,Topic maintenance, Initiation Speech Normal Yes Cognition Normal No Cognitive Impairment(s) Attention,Short-term memory, Long-term memory,Executive functioning,Problem solving, Reasoning,Thought organization ,Safety awareness,Impulsivity Formal Assessment Standardized Test/Screener Type [facility] Mental Status (UMS) Administration Initiated,Discontinued Results The [facility] Mental Status (UMS) Examination was used to obtain information regarding the patient?s cognitive abilities. The SLUMS consists of ten questions that assess delayed recall, verbal fluency, comprehension, calculations, attention, working memory, and orientation. A scored is calculated from a possible 30 points. Scores fall in one of three ranges describing a patient?s level of impairment based upon level of education. Patients who have completed high school are expected to score slightly higher on this test than those who have not. For someone with a high school education, WNL is 27-30. The SLUMS was initiated on this date, though discontinued given pt disengagement from task and significant difficulty initiating response despite max cueing. Completed subtest scores are as follows : Orientation: 3/3 Immediate Recall: 3/5 (not calculated in total score) Unable to provide a total score as pt did not complete the full examination. Pt demonstrated at least moderate -severe cognitive- communication impairment in the areas of attention, short- term memory, and word-finding. During informal assessment in semi-structured conversation, pt demonstrated delayed response to yes/no and wh- questions and word-finding difficulty, though was able to participate in conversation and communicate relatively effectively. She was oriented x4 and responded to case history questions accurately. However, she demonstrated significant difficulty with standardized assessment, with decrease in auditory comprehension noted and difficulty initiating all speech. Findings/Results Language Function Moderately-severely impaired Cognitive Function Moderately-severely impaired Findings Pt demonstrated at least moderate-severe cognitive- communication impairment in the areas of attention, short- term memory, and word-finding. 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 She is also at risk for communication breakdowns. Skilled CARE AIDE services with the goal of providing therapeutic education and training in the use of cognitive-communication compensatory strategies targeting attention and immediate and delayed memory as well as word-finding for improved communication are recommended for improved safety and independence. Cognitive Communication Deficits Self-awareness of Cognitive- Situational awareness ( Communication Deficits recognition of problem in context;in real time) Prognosis Prognosis Fair Based on Cognitive status,Comorbidities ,Duration of symptoms/severity Plan of Care Speech-Language Treatment Yes Frequency 5x/week Patient/Caregiver Education Patient expressed understanding of evaluation, Patient expressed agreement with goals and treatment plans Short Term Goals 1. Patient will selectively attend to tasks for 3-5 minutes in order to enhance patient?s ability to allow for increased socialization and ability to communicate basic wants/needs. 2. Patient will utilize total communication (verbal, written , gesture, AAC) given mod-max verbal cueing in order to participate in complex communication about thoughts, ideas, opinions, and feelings. 3. Patient will explore external compensatory strategies through education and application, in order to select 1-2 that are a best fit for daily needs (ex: calendar and writing lists). Refrigeration Person Goals Patient will increase cognitive-communication skills to within functional limits using compensatory strategies as trained in order to facilitate safe return to prior level of living. Discharge Recommendations Inpatient rehab facility
[2023-12-11 20:00] VITALS: BP 161/92; PULSE 87; RESP 18; TEMP 36.4; O2SAT 94
[2023-12-11] MEDS: METOPROLOL IR 25 MG TABLET PO (21:11)
[2023-12-11] MEDS: ATORVASTATIN 20 MG TABLET 40 MG PO (21:11)
[2023-12-11] MEDS: HEPARIN 5,000 UNIT/ML VIAL 7500 UNIT SUBCUT (21:14)
[2023-12-11] MEDS: cefTRIAXone 1,000 MG in SODIUM CHLORIDE 0.9% 100 ML 200 MG IV (21:14)
[2023-12-12] VITALS (8 sets, daily range): BP systolic 133–175; BP diastolic 85–119; PULSE 61–102; RESP 14–18; TEMP 36.2–37.2; O2SAT 94–96
--- NOTE | 2023-12-12 02:37 | PC.NURSE ---
0237 Pt had 14 seconds of asystole; Pt had episode of unresponsiveness then awake coughing up sputum. Pt O2 95% on room air. Oral suction and turned patient to side. HOB elevated. Pt back in Afib on telemetry. Alert to self, month, year only. Delayed responses. Denies pain or shortness of breath. Notified Dr Schmitz via phone, labs are ordered. Will notify for any changes. Pt is awake and talking slowly, having trouble getting words out. VS stable. Call light is in reach. Bed alarm activated.
[2023-12-12 04:22] LABS: Add Manual Diff / Slide Review NO; Basophils Absolute Auto 100 /uL (0-100); Basophils Percent Auto 0.6 % (0-2); Eosinophils Absolute Auto 100 /uL (0-450); Eosinophils Percent Auto 0.6 % (2-4); Hematocrit 38.8 % (36-46); Hemoglobin 12.5 g/dL (12.0-16.0); Lymphocytes Absolute Auto 900 /uL (1100-4500); Lymphocytes Percent Auto 7.6 % (25-40); Mean Corpuscular HGB Conc 32.2 % (30-36); Mean Corpuscular Hemoglobin 26.1 PG (26-34); Mean Corpuscular Volume 81.2 fL (80-100); Monocytes Absolute Auto 800 /uL (0-900); Monocytes Percent Auto 6.7 % (3-14); Neutrophils Absolute Auto 9800 /uL (1500-7000); Neutrophils Percent Auto 84.5 % (50-75); Platelet Count 275 X10^3/uL (150-400); Red Blood Cell Count 4.78 X10^6/uL (4.0-5.2); Red Cell Distribution Width 18.1 % (11.6-14.8); White Blood Cell Count 11.6 X10^3/uL (4.5-11.0)
[2023-12-12 04:46] LABS: Alanine Aminotransferase 18 IU/L (<35); Albumin 4.2 g/dL (3.5-5.0); Albumin Globulin Ratio 1.2 (1.0-2.8); Alkaline Phosphatase 180 U/L (38-126); Aspartate Aminotransferase 26 IU/L (14-36); BUN Creatinine Ratio 15.6 (6-22); Bilirubin Total 0.6 mg/dL (0.2-1.3); Blood Urea Nitrogen 28 mg/dL (7-17); Calcium 9.9 mg/dL (8.4-10.2); Carbon Dioxide 21 mmol/L (22-32); Chloride 108 mmol/L (98-107); Estimated Glomerular Filt Rate 27 mL/min (>60); Globulin 3.6 g/dL (1.7-4.1); Glucose 189 mg/dL (80-110); HEMOLYSIS < 15 (0-50); Sodium 138 mmol/L (137-145); Total Protein 7.8 g/dL (6.3-8.2)
[2023-12-12 04:47] LABS: Potassium 5.5 mmol/L (3.4-5.1)
[2023-12-12] MEDS: LEVOTHYROXINE 88 MCG TABLET PO (05:43)
[2023-12-12] MEDS: HEPARIN 5,000 UNIT/ML VIAL 7500 UNIT SUBCUT (05:43)
[2023-12-12] MEDS: METOPROLOL IR 25 MG TABLET PO ×2 (09:33→21:27)
--- NOTE | 2023-12-12 10:45 | OT.IP.TRT ---
Current Diagnoses Cerebral infarction, unspecified (12/11/23) Occupational Therapy Treatment Note M2 OT-IP Current Condition Start: 12/10/23 14:34 Freq: Status: Active Protocol: Document 12/10/23 14:34 CGR (Rec: 12/10/23 14:47 CGR [id number]) Occupational Therapy Current Condition Current Condition Evaluation Date 12/10/23 Treatment Diagnosis confusion, UTI, CVA Diagnosis Onset Date 12/10/23 M3 OT- IP Subjective and Pain Start: 12/10/23 14:34 Freq: Status: Active Protocol: Document 12/12/23 09:45 [facility] (Rec: 12/12/23 13:21 [facility] [id number]) OT- Subjective Occupational Therapy Visit Type Type Treatment Note Visit Start Time 09:45 Visit Stop Time 10:45 Occupational Therapy Visit Comments Patient Comments Pt agreed to try to get up. Pt states feels like she still has shingles on the top of her head and intensely straching her left eye and top on head- nursing notified. Also notified nursing of high BP readings. Patient/Caregiver Goals TO get better. OT Pain Assessment Pain When Pain Assessed At Rest Pain Present Pain Present Denied Pain M4 OT- IP ADL's Start: 12/10/23 14:34 Freq: Status: Active Protocol: Document 12/12/23 09:45 [facility] (Rec: 12/12/23 13:21 [facility] [id number]) OT [id number] Comments OT Self-Feeding Comments Not performed. OT ADL-Grooming Comments OT Grooming Comments Not performed. OT ADL-Oral Care Comments Oral Care Comments Not performed. OT ADL-Dressing Comments OT Dressing Comments Not performed. OT ADL-Toileting General Evaluation Toileting Ability Maximum Assistance Comments OT Toileting Comments Pt needing assist for all hygiene needs. OT ADL-Bathing Bathing Type Bathing Type Sponge Bath Comments OT Bathing Comments Nursing aid assist to sponge her off while seated at the edge of the bed. M5 OT- IP IADL's Start: 12/10/23 14:34 Freq: Status: Active Protocol: Document 12/11/23 12:35 [facility] (Rec: 12/11/23 12:52 [facility] [id number]) OT-Instrumental Activities of Daily Living Home Safety Awareness Home Safety Comments Pt needing increased time to get her answers out and slow to initiate her movements. Medication Management Medication Management Comments Pt will benefit from assist. Money Management Money Management Comments Pt will benefit form asisst as having difficulty to calculate numbers at this time and needing increased time. Meal Preparation Meal Preparation Comments Pt will need assist due to decreased initiation and motor planning at this time. Healthcare Translator Healthcare Translator Comments Pt will need assist. M6 OT- IP Functional Cognition Start: 12/10/23 14:34 Freq: Status: Active Protocol: Document 12/12/23 09:45 [facility] (Rec: 12/12/23 13:21 [facility] [id number]) Cognitive Factors Limiting Selfcare Function Cognitive Comments Cognitive Assessment Comments Pt not able to get words out today as well. Pt needing increased time to answer questions and at times having a fixed gaze and no response. Pt needing step by step commands, tactile, and visual cues to follow. M7 OT- IP Mobility and Balance Start: 12/10/23 14:34 Freq: Status: Active Protocol: Document 12/12/23 09:45 [facility] (Rec: 12/12/23 13:21 [facility] [id number]) OT- Bed Mobility Assessment Supine to Sit Supine to Sit Assist Maximum Assistance,1 Person Assistance Sit to Supine Sit to Supine Assist Maximum Assistance,2 Person Assistance OT-Transfer Assessment Sit to and From Stand Sit to and from Stand Moderate Assistance,2 Person Assistance Transfers Transfer Ability Moderate Assistance,1 Person Assistance,2 Person Assistance Technique Transfer Destination Bed,Bedside Commode Devices Transfer Assistive Devices Gait Belt,Front Wheeled Walker Comments Mobility Comments MAX A to get out of bed and needing lots of tactile cues and assist to get her legs to the edge of the bed and assist to get her trunk upright. MODA X 2 to stand to the FWW and needing MODA 1-2 for the transfer. Pt having difficulty to initiate her movements. OT- Balance Assessment Sitting Balance and Reactions Static Sitting Balance Ability Good Dynamic Sitting Balance Ability Fair Standing Balance and Reactions Static Standing Balance Ability Fair Dynamic Standing Balance Ability Poor M8 OT- IP Objective Assessments Start: 12/10/23 14:34 Freq: Status: Active Protocol: Document 12/10/23 14:34 CGR (Rec: 12/10/23 14:47 CGR [id number]) OT Gross Range of Motion Upper Extremity Range of Motion Assessment Right Impaired ROM Impairments Pt states she has a long standing injury to her R OT Strength Upper Extremity Strength Assessment Within Functional Limits Comments Strength Comments grossly 4+/5, R shld not tested OT- Coordination Assessment Upper Extremity Finger to Nose Test Within Functional Limits Finger Tapping Test Within Functional Limits OT-Muscle Tone Assessment Muscle Tone WNL Yes OT Sensation Assessment Edema Edema Absent M9 OT- IP Assessment and Plan Start: 12/10/23 14:34 Freq: Status: Active Protocol: Document 12/12/23 09:45 [facility] (Rec: 12/12/23 13:21 [facility] [id number]) OT Summary Assessment and Plan Potential Rehabilitation Potential Good Analytic Complexity at Evaluation Moderate Summary OT Impairments Balance,Functional Cognition, Functional Mobility,Grooming, Dressing,Toileting,Bathing, Toilet Transfers,Shower Transfers,Activity Tolerance Progress Towards Goals Slow Progress due to Medical Issues,Slow Progress due to Activity Tolerance,Slow Progress due to Cognition Assessment Summary Pt having more difficulty with comprehension, speed of processing, balance, and initiating movements. Pt will benefit from acute rehab versus skilled rehab pending progress. Goals Grooming Goal Independent Dressing Goal Independent Toileting Goal Independent Bathing Goal Independent Toilet Transfer Goal Independent Shower Transfer Goal Independent Days to Meet Goals 25 Frequency of Treatment Other frequency 5x a week Treatment Plan OT Treatment Plan ADL Training,Functional Cognition Training,Functional Mobility,Patient/Family Education,Discharge Planning Discharge Recommendations OT Discharge Recommendations Acute Rehab,SNF vs Acute Rehab Transportation Needs at Discharge Wheelchair/Cabulance
--- NOTE | 2023-12-12 12:30 | PT.IPTN ---
Current Diagnoses Cerebral infarction, unspecified (12/11/23) Physical Therapy Treatment Note M2 PT-IP Current Condition Start: 12/10/23 10:27 Freq: NEEDED Status: Active Protocol: Document 12/10/23 12:02 MB (Rec: 12/10/23 12:45 MB [id number]) Physical Therapy Current Condition Current Condition Evaluation Date 12/10/23 Treatment Diagnosis Confusion M3 PT-IP Subjective Start: 12/10/23 10:27 Freq: NEEDED Status: Active Protocol: Document 12/12/23 13:19 TS (Rec: 12/12/23 13:25 TS [id number]) Subjective Physical Therapy Visit Type Type Treatment Note Visit Start Time 12:30 Visit Stop Time 12:53 Notes Daughter and caregiver in the room Number of FREELANCE RECRUITER Visits 2 Physical Therapy Visit Comments Patient Comments Pt found resting in bed, she is agreeable to PT. M4 PT-IP Mobility and Gait Start: 12/10/23 10:27 Freq: NEEDED Status: Active Protocol: Document 12/12/23 13:19 TS (Rec: 12/12/23 13:25 TS [id number]) PT-Bed Mobility Assessment Supine to Sit Supine to Sit Moderate Assistance Scooting Scooting to Edge of Bed Moderate Assistance PT-Transfer Assessment Sit to and From Stand Sit to and from Stand Minimal Assistance,Moderate Assistance,1 Person Assistance Equipment Transfer Assistive Device Gait Belt,Front Wheeled Walker Orthotic/Prosthetic Devices or Brace: No Transfers Transfer Destination Chair Transfer Technique Stand Step Pivot Transfer Ability Level of Assist Moderate Assistance,1 Person Assistance Comments Mobility Comments Supinpe to sit ModA for LE's and uprighting trunk with LACQUER SPRAYER, pt is slow to initiate movement and requires max cues . STS with FWW Min/ModA, pt has a lsight posterior lean. She performs stand step pivot to the chair ModA with max cues for sequencing and turning of FWW. Pt was left in the chair, all needs met. PT-Balance Assessment Sitting Balance and Reactions Static Sitting Balance Ability Good Dynamic Sitting Balance Ability Fair Standing Balance and Reactions Static Standing Balance Ability Fair Dynamic Standing Balance Ability Poor Device Used FWW M5 PT-IP Objective Assessments Start: 12/10/23 10:27 Freq: NEEDED Status: Active Protocol: Document 12/10/23 12:02 MB (Rec: 12/10/23 12:45 MB [id number]) Orientation Orientation/Cognition Level of Alertness Confusional State Orientation Name,Birthday,Month,Date,Year, Place,Situation Language Function Ability No Deficits Noted Safety Awareness Decreased Safety Awareness Memory Description No Deficits Noted Comments Pt is a poor historian as far as PLOF Gross Range of Motion Upper Extremity ROM Assessment Right Impaired Impairments Defer to OT but pt presents with right shoulder AROM limitations and painful movement Lower Extremity ROM Assessment Within Functional Limits Strength Lower Extremity Strength Knee B knee extension 4+/5 Ankle B ankle DF and great toe extension 4/5 Coordination Assessment Assessment Heel on Rivera Test Minimal Impairment Sensation Assessment Comments Sensation Comments Pt denies paresthesias M6 PT-IP Treatment Start: 12/10/23 10:27 Freq: NEEDED Status: Active Protocol: Document 12/12/23 13:19 TS (Rec: 12/12/23 13:25 TS [id number]) Physical Therapy Treatment Education Education Provided Safety M7 PT-IP Assessment and Plan Start: 12/10/23 10:27 Freq: NEEDED Status: Active Protocol: Document 12/12/23 13:19 TS (Rec: 12/12/23 13:25 TS [id number]) PT Summary Assessment and Plan Potential Rehabilitation Potential Good Summary Impairments Pain,Balance,Cognition,Bed Mobility,Transfers,Gait, Activity Tolerance Progress Towards Goals Slow Progress due to Medical Issues,Slow Progress due to Activity Tolerance Assessment Summary Pt is having increased difficulty following instructions and initiating movement. She is ModA for bed mobility and for STS with FWW. She performs transfer to chair with ax cues. She does not progress gait this session . PT continues to recommend SNF vs Acute at this time. Goals Bed Mobility Goal Independent Transfer Goal Independent,Front Wheeled Walker,Four Wheeled Walker Gait Goal Independent,Front Wheel Walker ,Four Wheel Walker Gait Distance 100 Days to Meet Goals 5 Frequency of Treatment Frequency Of Treatment Once a Day Treatment Plan Physical Therapy Treatment Plan Bed Mobility Training,Transfer Training,Gait Training, Therapeutic Exercise,Balance Retraining,Discharge Planning, Hot or Cold Pack,Neuromuscular Re-ed,Coordination Retraining ,Manual Therapy Recommendations To Nursing Amount of Assist Needed 2 Person Assist Discharge Recommendations PT Discharge Recommendations SNF Rehab,Acute Rehab,SNF vs Acute Rehab Transportation Needs at Discharge Private Vehicle,Wheelchair/ Cabulance
--- NOTE | 2023-12-12 14:58 | CM.DPC ---
DCP Cont. Reviewed EMR and team rounds for status updates. Called [facility] acute rehab to clarify if they are willing to accept. They will call and discuss some of their questions with pt's dtr re: d/c from rehab back home to confirm that she has enough support at home before they will agree to accept, but will provide us with a determination tomorrow () am.
--- NOTE | 2023-12-12 17:08 | ST.IPCSEOM ---
Visit Care Team Role Provider Type Rosales Veronica DO Emergency Provider Physician Referring Provider Specialty: Emergency Medicine Address: [address] [place] [address], [address] Email: [email or web address] Sd Joshi MD Attending Provider Physician Primary Care Provider Specialty: Family Practice Address: [facility] [place], [address] Email: [email or web address] Shawn Conrad MD Admit Provider Physician Other Providers Specialty: Family Practice Address: [address] [place] [address], [address], [place], [address] Email: [email or web address] Current Diagnoses Cerebral infarction, unspecified (12/11/23) Past Medical History (Last Reviewed 12/10/23 @ 03:24 by Rosales Veronica DO) Anxiety (Medical) Calculus of kidney (Medical) Depression (Medical) GI bleed (Medical) Gross hematuria (Medical) History of recurrent UTI (urinary tract infection) (Medical) HTN (hypertension) (Medical) Hypothyroid (Medical) Nephrolithiasis (Medical) Noncompliant neurogenic bladder (Medical) Obstructive uropathy (Medical) MORGAN on CPAP (Medical) Peptic ulcer disease (Medical) Pneumothorax (Medical) Postmenopausal atrophic vaginitis (Medical) Ureteral obstruction, left (Medical) Urinary incontinence, mixed (Medical) Speech-Language Pathology Swallow Evaluation RECONSTRUCTIVE SURGEON Clinical Swallow Evaluation Start: 12/12/23 16:43 Freq: Status: Active Protocol: Document 12/12/23 16:44 SS (Rec: 12/12/23 17:08 SS [id number]) Clinical Swallow Evaluation Session Time Visit Start Time 10:50 Visit Stop Time 11:17 Total Visit Minutes 27 Visit Information Visit Number Initial Evaluation Referral Referring Provider Sd Joshi Reason for Referral Swallowing concerns Setting Assessment Location Acute Care Visit Type Note Type Initial evaluation Next Note Type Next Note Type Treatment Note Patient Information Identification Type Name,Wristband History Pt is an 88-year-old female admitted to ED on 12/09 with encephalopathy and UTI. She was referred for cognitive- communication assessment and treatment. PMHx includes chronic UTIs, anxiety, depression, and hypertension. Per H&P from 12/09, Workup in ED did show a UTI however she is chronically instrumented with bilateral nephrostomies 2 /2 obstruction and says this does not feel like her usual UTIs. 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 She is fully oriented but does have some mild word salad today. Discussed with her and caregiver on the phone today. Today will try to get MRI and do therapy evals, treat UTI. Subjective Observations Chart reviewed and RN consulted. Assessment of swallowing requested given new swallowing concerns. RN reported choking with breakfast this morning as well as pocketing which had to be cleared, with pt seemingly unable to sense. Pt presented with decreased alertness this morning than during evaluation . Increased delay in response noted as well as increased difficulty with responding to simple egocentric and contextual questions, which she was able to do yesterday given increased response time. Frequent fixed gaze noted with no attempt to respond. Significant difficulty with following 1-step directions given max verbal, visual, and tactile cueing. Pt laying in bed upon RECONSTRUCTIVE SURGEON arrival. Assisted pt to fully upright position. Bed alarm turned back on after RECONSTRUCTIVE SURGEON completed assessment . Reported by Patient/Caregiver Other Symptoms Choking,Difficulty swallowing solids,Food gets stuck Baseline Feeding Method Needs some assistance The IDDSI Framework Protocol: IDDSI.1 Objective Assessment Mental Status Confused,Lethargic Oral Integrity WFL Dentition Within normal limits Lip Function Within normal limits Observation of Lips at Rest Symmetrical Tongue Function Within normal limits Observations of Tongue at Rest Within normal limits Jaw Function Within normal limits Observation of Jaw at Rest Within normal limits Jaw Opening Within normal limits Jaw Lateralization Within normal limits Hard/Soft Palate Function Within normal limits Observations of Hard/Soft Palate Within normal limits Respiratory Sufficiency Within normal limits Comment Limited OME completed d/t pt difficulty with following simple single-step directions. She did not benefit from verbal cueing or visual model. However, overall function appears to be WFL given limited exam. Food and Liquid Trials Position During Assessment Upright (90 degrees) Liquids Trialed Thin (IDDSI 0) Solid Trials Purred (IDDSI 4),Soft & Bite- sized (IDDSI 6),Regular (IDDSI 7) Administration Type Cup single sip,Cup consecutive sips,Straw,Self-feeding Oral Impairment Mildly impaired Oral Phase Comments Good oral acceptance. Mildly disorganized, slow, and poor bolus manipulation. A-P transit appeared mildly prolonged. No overt s/sx of delayed pharyngeal swallow or premature spillage. Mild b/l oral residue noted with pt attempting to clear, though unsuccessfully. Cleared with cued liquid wash and lingual sweep. Pharyngeal Impairment Moderately impaired Pharyngeal Phase Comments Appeared timely with all provided consistencies. No overt s/sx of aspiration/ penetration with provided consistencies. However, reported s/sx of aspiration/ penetration earlier in day, with increased aspiration risk given fluctuating cognition and potential impulsively with intake without supervision. Fatigue/Endurance Endurance WNL The IDDSI Framework Protocol: IDDSI.1 Findings Swallowing Function Oropharyngeal phase dysphagia Swallowing Function Comments Currently, pt presents with indications of oropharyngeal dysphagia. Severity of Swallow Impairment Mildly-moderately impaired Contributing Factors to Swallow Reduced alertness or attention Impairment ,Difficulty following directions,Reduced oral strength/coordination/ sensation,Mastication inefficiency,Impaired oral- pharyngeal transport,Delayed swallow initiation,Impaired airway protection Prognosis Fair Based on Cognitive status,Age, Comorbidities,Duration of symptoms/severity Impact on Safety and Functioning Risk for aspiration Recommendations Instrumental Assessment No Swallowing Treatment Yes Frequency 5x/week Recommended Solids Soft & Bite-sized (IDDSI 6) Recommended Liquids Thin (IDDSI 0) Other Recommendations MBSS not recommended at this time given decreased tolerance of procedure and current cognitive function. Recommend treatment to target use of compensatory strategies with intake and monitoring of dysphagia status. Safety Precautions/Swallowing Supervision needed for all Recommendations meals,Feed only when alert, Reduce distractions,Remain upright (90 degrees) during all oral intake,Upright position at least 30 minutes after meals,Small bites and sips when eating,Slow rate; swallow between bites,1 to 1 feeding assistance,Strict oral care after intake,Check for pocketing Medication Recommendations Whole in Carrier Discharge Recommendations longterm facility, Inpatient rehab facility Education Patient/Caregiver Education Described results of evaluation Goals Short-term Goals 1. Patient will utilize recommended safe swallowing strategies in 80% of opportunities with minimal verbal cueing in order to reduce risk of aspiration. 2. Patient will consume easy to chew textures with no overt s/sx of aspiration in 90% of opportunities in order to meet nutrition and hydration needs and reduce risk of aspiration pneumonia. 3. Patient will consume thin liquids with no overt s/sx of aspiration in 90% of opportunities in order to meet nutrition and hydration needs and reduce risk of aspiration pneumonia. Long-term Goals Patient will tolerate safest and most efficient diet with no overt s/sx of aspiration/ penetration 100% of the time in order to consume least restrictive diet.
--- NOTE | 2023-12-12 17:14 | PM.PN.1 ---
Subjective Subjective Date Patient Seen: 12/12/23 Time Patient Seen: 10:00 Interval history: CC: new confusion Doing ok today however symptoms of confusion and cognitive slowing persist. Reviewed therapy notes recommending rehab/SNF, CM is progressing on those possibilities. Plan discussed at bedside with patient daughter and son. Exam Vital Signs (past 8 hours): - 12/12/23 10:00 12/12/23 14:00 Temperature 98.0 F 97.2 F L Pulse Rate 72 61 Respiratory Rate 16 16 Blood Pressure 152/87 H 151/97 H Pulse Oximetry 94 95 Oxygen Delivery Method Room Air Oxygen Flow Rate 0 Narrative Exam Narrative: alert laying in hospital bed with daughter at bedside Resp Other: clear to auscultation bilaterally on room air Cardio Other: regular rate well perfused minimal pedal edema GI Other: soft nontender normal bowel sounds neprhostomies bilaterally to back Psych Other: alternating between nervous giggles and tearful agitation. oriented full with slow word production and some word salad. Objective Labs 12/12/23 04:03 12/12/23 04:03 Labs: Laboratory Results - last 24 hr 12/12/23 04:03 WBC 11.6 H D RBC 4.78 Hgb 12.5 Hct 38.8 MCV 81.2 MCH 26.1 MCHC 32.2 RDW 18.1 H Plt Count 275 Neut % (Auto) 84.5 H Lymph % (Auto) 7.6 L [place] % (Auto) 6.7 Eos % (Auto) 0.6 L Baso % (Auto) 0.6 Neut # (Auto) 9800 H Lymph # (Auto) 900 L [place] # (Auto) 800 Eos # (Auto) 100 Baso # (Auto) 100 Sodium 138 Potassium 5.5 H Chloride 108 H Carbon Dioxide 21 L BUN 28 H Creatinine 1.79 H Estimated GFR 27 L BUN/Creatinine Ratio 15.6 Glucose 189 H Calcium 9.9 Total Bilirubin 0.6 AST 26 ALT 18 Alkaline Phosphatase 180 H Total Protein 7.8 Albumin 4.2 Globulin 3.6 Albumin/Globulin Ratio 1.2 PFSH Medical History Noncompliant neurogenic bladder Urinary incontinence, mixed Nephrolithiasis Postmenopausal atrophic vaginitis Ureteral obstruction, left MORGAN on CPAP Obstructive uropathy History of recurrent UTI (urinary tract infection) Gross hematuria Pneumothorax Peptic ulcer disease Depression Anxiety GI bleed Calculus of kidney HTN (hypertension) Hypothyroid Surgical History History of thyroidectomy Nephrostomy status Hx of cystoscopy (08/04/19) H/O mastectomy History of hip replacement H/O gastric bypass History of back surgery Hx of bilateral cataract extraction (2012) Family History Father Seizures Mother Heart disease Diabetes mellitus Brother No significant medical problems Sister Diabetes mellitus Grandmother Diabetes mellitus Social History household members: spouse Smoking Status: Never smoker alcohol intake: never eating out: rarely or never Type(s) of exercise: none Assessment & Plan Assessment & Plan narrative: 88yo F with indwelling nephrostomies presents with acute confusion found to have frontal stroke #New stroke/CVA New frontal malacia noted on CT was not noted on August scan; MRI shows new frontal infarct of uncertain age. PT OT and speech therapy have been consulted and recommend rehab. Patient was started on aspirin and atorvastatin. Echo pending. #hx of afib #hx of GI bleed discussed this with patient and family - she has not been on anticoagulants since GI bleed hospitalization fiasco. Not taking any NSAIDs. Strongly averse to any more strokes. On balance will opt to resume treatment with low dose eliquis under monitoring #hx of nocturnal torsades (two nights ago) and asystolic pause (last night) concerning cardiac events in setting of recent stroke which have resolved on their own without any instigation or amelioration that could be ascertained. monitor. #aphasia new issue since stroke #UTI #chronic indwelling nephrostomy #chronic kidney disease stage 4 treating with rocephin, continue q24h and hydrate, suspect this is incidental #acquired hypothyroidism stable continue home 88mcg dose #hx of diabetes, diet controlled not on meds, monitor #hx of gerd stable continue ppi #hx of hyperlipidemia stable on home statin, noted Dispo: Inpt status, CM working on placement PCP: Adi MDM: Daughter code: DNR/DNI Time-Based Coding :: [TOTAL MINUTES] spent with patient and on the chart (including review of chart, obtaining history, exam, reviewing outside data, placing orders, documenting exam and treatment plan, and counseling patient) on [DATE]. Quality VTE Deep Vein Thrombosis/Pulmonary Embolism Present on Admission: No
[2023-12-12] MEDS: ATORVASTATIN 20 MG TABLET 40 MG PO (21:27)
[2023-12-12] MEDS: APIXABAN 5 MG TABLET 2.5 MG PO (21:27)
[2023-12-12] MEDS: SODIUM CHLORIDE 0.9% FLUSH 10 ML IV (21:29)
[2023-12-12] MEDS: SODIUM CHLORIDE 0.9% 250 ML 21 ML IV (21:35)
[2023-12-12] MEDS: cefTRIAXone 1,000 MG in SODIUM CHLORIDE 0.9% 100 ML 200 MG IV (21:39)
[2023-12-13] VITALS: BP 135/64; PULSE 71; RESP 16; TEMP 36.1; O2SAT 94
[2023-12-13 04:00] VITALS: BP 149/75; PULSE 73; RESP 15; TEMP 36.1; O2SAT 90
[2023-12-13 06:06] LABS: Add Manual Diff / Slide Review NO; Basophils Absolute Auto 100 /uL (0-100); Basophils Percent Auto 0.8 % (0-2); Eosinophils Absolute Auto 200 /uL (0-450); Hematocrit 38.5 % (36-46); Hemoglobin 12.4 g/dL (12.0-16.0); Lymphocytes Absolute Auto 1500 /uL (1100-4500); Lymphocytes Percent Auto 16.1 % (25-40); Mean Corpuscular HGB Conc 32.2 % (30-36); Mean Corpuscular Volume 80.7 fL (80-100); Monocytes Absolute Auto 1000 /uL (0-900); Monocytes Percent Auto 11.2 % (3-14); Neutrophils Absolute Auto 6300 /uL (1500-7000); Neutrophils Percent Auto 69.9 % (50-75); Platelet Count 260 X10^3/uL (150-400); Red Blood Cell Count 4.77 X10^6/uL (4.0-5.2); Red Cell Distribution Width 17.6 % (11.6-14.8)
[2023-12-13] MEDS: LEVOTHYROXINE 88 MCG TABLET PO (06:06)
[2023-12-13 06:32] LABS: Alanine Aminotransferase 17 IU/L (<35); Albumin 3.7 g/dL (3.5-5.0); Alkaline Phosphatase 158 U/L (38-126); Aspartate Aminotransferase 25 IU/L (14-36); Bilirubin Total 0.4 mg/dL (0.2-1.3); Calcium 9.7 mg/dL (8.4-10.2); Carbon Dioxide 23 mmol/L (22-32); Chloride 104 mmol/L (98-107); Globulin 3.7 g/dL (1.7-4.1); Glucose 152 mg/dL (80-110); HEMOLYSIS < 15 (0-50); Potassium 4.8 mmol/L (3.4-5.1); Sodium 135 mmol/L (137-145); Total Protein 7.4 g/dL (6.3-8.2)
[2023-12-13 06:47] LABS: BUN Creatinine Ratio 17.2 (6-22); Blood Urea Nitrogen 32 mg/dL (7-17); Estimated Glomerular Filt Rate 26 mL/min (>60)
[2023-12-13 08:00] VITALS: BP 134/89; PULSE 75; RESP 16; TEMP 36.4; O2SAT 98
[2023-12-13] MEDS: METOPROLOL IR 25 MG TABLET PO ×2 (08:26→20:13)
[2023-12-13] MEDS: ACETAMINOPHEN 325 MG TABLET 650 MG PO (08:26)
[2023-12-13] MEDS: APIXABAN 5 MG TABLET 2.5 MG PO ×2 (08:27→20:13)
--- NOTE | 2023-12-13 08:43 | PC.NURSE ---
Addendum entered by Ronna Allison R.N. 12/13/23 11:27: Patients daughter and are here visiting, they are waiting to talk to Cat from discharge planning. Patient is up in her chair and comfortable. Original Note: Patient is confused, but pleasant. She was given some tylenol with her medication crushed in pudding. She has bilateral nephrostomy tubes that we will drain, and is being fed her breakfast with the assistance of a student. No choking noted.
--- NOTE | 2023-12-13 09:14 | PT.IPTN ---
Current Diagnoses Cerebral infarction, unspecified (12/11/23) Physical Therapy Treatment Note M2 PT-IP Current Condition Start: 12/10/23 10:27 Freq: NEEDED Status: Active Protocol: Document 12/10/23 12:02 MB (Rec: 12/10/23 12:45 MB [id number]) Physical Therapy Current Condition Current Condition Evaluation Date 12/10/23 Treatment Diagnosis Confusion M3 PT-IP Subjective Start: 12/10/23 10:27 Freq: NEEDED Status: Active Protocol: Document 12/13/23 09:31 TS (Rec: 12/13/23 09:41 TS [id number]) Subjective Physical Therapy Visit Type Type Treatment Note Visit Start Time 09:14 Visit Stop Time 09:30 Number of PROJECTOR BOOTH OPERATOR Visits 3 Physical Therapy Visit Comments Patient Comments Pt found resting in bed, she is agreeable to PT. M4 PT-IP Mobility and Gait Start: 12/10/23 10:27 Freq: NEEDED Status: Active Protocol: Document 12/13/23 09:31 TS (Rec: 12/13/23 09:41 TS [id number]) PT-Bed Mobility Assessment Supine to Sit Supine to Sit Moderate Assistance Scooting Scooting to Edge of Bed Moderate Assistance PT-Transfer Assessment Sit to and From Stand Sit to and from Stand Minimal Assistance,Moderate Assistance,1 Person Assistance Equipment Transfer Assistive Device Gait Belt,Front Wheeled Walker Orthotic/Prosthetic Devices or Brace: No Transfers Transfer Destination Chair Transfer Technique Stand Step Pivot Transfer Ability Level of Assist Moderate Assistance,1 Person Assistance Comments Mobility Comments Supine to sit ModA with HOB elevated 50D, pt is slow to process instructions, tends to just laugh as a response. She sat EOB for ~8' processing instructions to stand. STS with FWW Min-ModA, pt requires handplacement on FWW. Stand step pivot to chair ModA with max cueing for sequencing. Pt was left in the chair, all needs met. Gait Assessment Comments Gait Comments Stand step pivot PT-Balance Assessment Sitting Balance and Reactions Static Sitting Balance Ability Good Dynamic Sitting Balance Ability Fair Standing Balance and Reactions Static Standing Balance Ability Fair Dynamic Standing Balance Ability Poor Device Used FWW M5 PT-IP Objective Assessments Start: 12/10/23 10:27 Freq: NEEDED Status: Active Protocol: Document 12/10/23 12:02 MB (Rec: 12/10/23 12:45 MB [id number]) Orientation Orientation/Cognition Level of Alertness Confusional State Orientation Name,Birthday,Month,Date,Year, Place,Situation Language Function Ability No Deficits Noted Safety Awareness Decreased Safety Awareness Memory Description No Deficits Noted Comments Pt is a poor historian as far as PLOF Gross Range of Motion Upper Extremity ROM Assessment Right Impaired Impairments Defer to OT but pt presents with right shoulder AROM limitations and painful movement Lower Extremity ROM Assessment Within Functional Limits Strength Lower Extremity Strength Knee B knee extension 4+/5 Ankle B ankle DF and great toe extension 4/5 Coordination Assessment Assessment Heel on Rivera Test Minimal Impairment Sensation Assessment Comments Sensation Comments Pt denies paresthesias M6 PT-IP Treatment Start: 12/10/23 10:27 Freq: NEEDED Status: Active Protocol: Document 12/13/23 09:31 TS (Rec: 12/13/23 09:41 TS [id number]) Physical Therapy Treatment Education Education Provided Safety M7 PT-IP Assessment and Plan Start: 12/10/23 10:27 Freq: NEEDED Status: Active Protocol: Document 12/13/23 09:31 TS (Rec: 12/13/23 09:41 TS [id number]) PT Summary Assessment and Plan Potential Rehabilitation Potential Good Summary Impairments Pain,Balance,Cognition,Bed Mobility,Transfers,Gait, Activity Tolerance Progress Towards Goals Slow Progress due to Medical Issues,Slow Progress due to Activity Tolerance Assessment Summary Latonia continues to make slow progress with her mobility. She can follow instructions at times but is slow to process and requires max cueing for all mobility. She was non- verbal today and tends to laugh as a reponse. PT continues to recommend SNF vs Acute. Goals Bed Mobility Goal Independent Transfer Goal Independent,Front Wheeled Walker,Four Wheeled Walker Gait Goal Independent,Front Wheel Walker ,Four Wheel Walker Gait Distance 100 Days to Meet Goals 5 Frequency of Treatment Frequency Of Treatment Once a Day Treatment Plan Physical Therapy Treatment Plan Bed Mobility Training,Transfer Training,Gait Training, Therapeutic Exercise,Balance Retraining,Discharge Planning, Hot or Cold Pack,Neuromuscular Re-ed,Coordination Retraining ,Manual Therapy Recommendations To Nursing Amount of Assist Needed 2 Person Assist Discharge Recommendations PT Discharge Recommendations SNF Rehab,Acute Rehab,SNF vs Acute Rehab Transportation Needs at Discharge Private Vehicle,Wheelchair/ Cabulance
--- NOTE | 2023-12-13 11:47 | DIET.PN1 ---
Dietary Progress Note Assessment: Average recorded po intake 70%. DFM reviewed for meal composition. Diet is soft and bite sized with supervision at meals. Met w/ pt in room, waited for response for question asked, but no response, laughed as response, which is similar to how pt presented for PT today per PT note. 4% weight loss in 5 months per EMR, non-severe. Ht: 147.32 cm Wt: 95.254 kg BMI: 43.9 Last BM: 12/13/23 (12/13/23 06:00) MNA: 8 Michael Score: 16 Diet: 12/12/23 Lunch Dysphagia Diet Diet Modifications: 1:1 supervision, slow rate, small bites and sips Food Texture: Level 6-Soft & Bite-sized Liquid Consistency: Level 0 - Thin Nutrition Percent Meal Consumed 75% 12/13/23 08:00 Percent Meal Consumed 50% 12/12/23 18:00 Percent Meal Consumed 75% 12/11/23 18:00 Percent Meal Consumed 90 12/11/23 12:46 Labs: RBC 4.77 X10^6/uL (4.0-5.2) 12/13/23 05:05 Hgb 12.4 g/dL (12.0-16.0) 12/13/23 05:05 Hct 38.5 % (36-46) 12/13/23 05:05 Creatinine 1.86 mg/dL (0.52-1.04) H 12/13/23 05:05 Nutrition Diagnosis: Swallowing difficulty r/t stroke aeb ST eval with level 6 diet recommended Interventions: PO intakes are adequate, ONS as needed. Monitoring/Evaluations: po intakes Electronically Signed by: Maude Zafar 12/13/23 11:47 Clinical Dietitian [address] [address]
[2023-12-13 12:00] VITALS: BP 139/100; PULSE 67; RESP 16; TEMP 36.1; O2SAT 95
--- NOTE | 2023-12-13 12:47 | ST.IPDYTX ---
Visit Care Team Role Provider Type Rosales Veronica DO Emergency Provider Physician Referring Provider Specialty: Emergency Medicine Address: [address] [place] [address], [address] Email: [email or web address] Sd Joshi MD Attending Provider Physician Primary Care Provider Specialty: Family Practice Address: [address] [place], [address] Email: [email or web address] Shawn Conrad MD Admit Provider Physician Other Providers Specialty: Family Practice Address: [address] [place] [address], [address], [place], [address] Email: [email or web address] INSIDE UPHOLSTERER Dysphagia Treatment INSIDE UPHOLSTERER Dysphagia Treatment Start: 12/12/23 16:43 Freq: Status: Active Protocol: Document 12/13/23 10:47 SS (Rec: 12/13/23 10:52 SS [id number]) Dysphagia Treatment Session Time Visit Start Time 10:20 Visit Stop Time 10:41 Total Visit Minutes 21 Visit Information Visit Number 1 Setting Assessment Location Acute Care Visit Type Note Type Treatment Note Next Note Type Next Note Type Treatment Note Patient Information Identification Type Name,ID Wristband Subjective Observations Chart reviewed and RN consulted. RN reported good tolerance of soft and bite- sized texture and thin liquids given 1:1 assist and supervision. No change in overall cognitive function noted. Pt leaning back in armchair upon INSIDE UPHOLSTERER arrival, and benefited from assistance to sit fully upright. Ongoing decreased alertness. Pt primarily nonverbal today, responded with laughing/ chuckling when asked orientation/egocentric questions or provided 1-step directions. Increased delay in response with x2 verbalizations noted throughout session (I'm 88 degrees when asked age and 3 kids when asked about her children). Ongoing fixed gaze noted with no attempt to respond and minimal acknowledgement of therapist. Treatment Liquids Trialed Thin (IDDSI 0) Solids Trialed Soft & Bite-sized (IDDSI 6), Regular (IDDSI 7) Administration Type Straw,Self-Feeding Oral Strategies Upright at 90 degrees,Lingual Sweep Treatment Activities Therapeutic trials of thin liquids, soft and bite-sized, and regular textures with dynamic assessment of s/sx of dysphagia. Communicated with RN re: POC and recommendations . The IDDSI Framework Protocol: IDDSI.1 Assessment Patient Response to Treatment Poor Rehab Potential Fair Assessment of Improvement Pt's alertness and responsiveness appear to have mildly decreased from previous session. She demonstrated significant difficulty following simple instructions, completing volitional oral motor tasks, and responding to verbal stimuli. During therapeutic trials of thin liquids, pt demonstrated good oral acceptance and AP transit appeared to be WFL. No s/sx of penetration/aspiration with single or sequential sips of thin liquids via straw. Given solid textures, she demonstrated adequate labial seal, mastication was disorganized and prolonged, and anterior-posterior transit appeared to be sluggish/ slowed. She demonstrated oral holding with about 50% of boluses and required verbal cueing to swallow prior to attempting to take another bite. There were mild amounts of oral residue, primarily requiring cued use of liquid wash, though pt did attempt to use lingual sweep, which was ineffective in clearing residue. Pt again demonstrated no overt s/sx of penetration/ aspiration with solid textures . Overall, p's ability to participate in PO intake continues to be impacted by her overall level of cognition and ability to follow multimodal cueing. Continue with soft and bite-sized texture diet, thin liquids, and pills in puree carrier. Continue recommending SNF vs. acute rehab at this time. Recommendations Recommendations Continue Current Diet Liquids Order Thin (IDDSI 0) Diet Order Soft & Bite-sized (IDDSI 6) Medication Recommendations Whole in Carrier Additional Dietary Needs 1:1 Supervision,1:1 Assistance ,Encourage to Self-Feed, Reminders to Use Strategies Aspiration Precautions Recommended Precautions Upright at 90 Degrees,Small Bites/Sips,Lingual Sweep,Check for Pocketing Treatment Plan Placement Recommendation after Discharge Group Home Facility, Inpatient Rehab Facility Appropriate for Continued Therapy Yes Therapy Recommendations Continue current diet and oral care protocol. Monitor overall cognitive status r/t dysphagia status and ability to participate in treatment targeting expressive and receptive language. May advance diet texture if pt appropriate and able to tolerate.
--- NOTE | 2023-12-13 15:05 | OT.IP.TRT ---
Current Diagnoses Cerebral infarction, unspecified (12/11/23) Occupational Therapy Treatment Note M2 OT-IP Current Condition Start: 12/10/23 14:34 Freq: Status: Active Protocol: Document 12/10/23 14:34 CGR (Rec: 12/10/23 14:47 CGR [id number]) Occupational Therapy Current Condition Current Condition Evaluation Date 12/10/23 Treatment Diagnosis confusion, UTI Diagnosis Onset Date 12/10/23 M3 OT- IP Subjective and Pain Start: 12/10/23 14:34 Freq: Status: Active Protocol: Document 12/13/23 15:06 [facility] (Rec: 12/13/23 15:16 [facility] [id number]) OT- Subjective Occupational Therapy Visit Type Type Treatment Note Visit Start Time 14:50 Visit Stop Time 15:05 Occupational Therapy Visit Comments Patient Comments Pt eyes closed when coming in to try to work with the pt. OT Pain Assessment Pain When Pain Assessed At Rest Pain Present Pain Present Denied Pain M4 OT- IP ADL's Start: 12/10/23 14:34 Freq: Status: Active Protocol: Document 12/13/23 15:06 [facility] (Rec: 12/13/23 15:16 [facility] [id number]) OT [id number] Comments OT Self-Feeding Comments At this time due to decreased initiation and ability to follow commands, pt will need 1:1 assist. OT ADL-Grooming Comments OT Grooming Comments Able to have wash cloth in front of her and after cue to wash her face, pt able to wash her face after set-up. OT ADL-Oral Care Comments Oral Care Comments Not performed. OT ADL-Dressing Comments OT Dressing Comments Not performed. OT ADL-Toileting Comments OT Toileting Comments Not performed. OT ADL-Bathing Comments OT Bathing Comments Sponge bath more appropriat at this time. M6 OT- IP Functional Cognition Start: 12/10/23 14:34 Freq: Status: Active Protocol: Document 12/13/23 15:06 [facility] (Rec: 12/13/23 15:16 [facility] [id number]) Cognitive Factors Limiting Selfcare Function Cognitive Ability Level of Alertness Alert,Confusional State Attention Span Ability Capable of Focused Attention, Unable to Focus,Unable to Sustain Attention Cognitive Comments Cognitive Assessment Comments Pt initially 80% with yes/no questions and after 5 questions then became inconsistent. Pt conintnues to laugh and not able to get her words out today. OT- Vision and Hearing OT- Vision Assessment Vision Assessment Comments Pt not having fixed gaze this session and able to scan the therapist in the room on the left and right side. r M8 OT- IP Objective Assessments Start: 12/10/23 14:34 Freq: Status: Active Protocol: Document 12/13/23 15:06 [facility] (Rec: 12/13/23 15:16 [facility] [id number]) OT Strength Comments Strength Comments Pt increased time to initiate movements with right hand and needing inital tactile cue so able to use her hands to take off her glasses. M9 OT- IP Assessment and Plan Start: 12/10/23 14:34 Freq: Status: Active Protocol: Document 12/13/23 15:06 [facility] (Rec: 12/13/23 15:16 [facility] [id number]) OT Summary Assessment and Plan Potential Rehabilitation Potential Good Analytic Complexity at Evaluation Moderate Summary OT Impairments Strength,Balance,Functional Cognition,Functional Mobility, Grooming,Dressing,Toileting, Bathing,Toilet Transfers, Shower Transfers,Activity Tolerance Progress Towards Goals Slow Progress due to Medical Issues,Slow Progress due to Activity Tolerance,Slow Progress due to Cognition Assessment Summary Today pt able to use her eyes to scan the room versus mostly fixed gaze yesterday. Pt able to point appropriately to yes or no initially for 5 questions and then inconsistent. Pt able to follow single step commands with visual and tactile cues to wash her face and take off her glasses. Pt will benefit from acute versus skilled rehab. Goals Grooming Goal Standby Assistance Dressing Goal Minimal Assistance Toileting Goal Minimal Assistance Bathing Goal Minimal Assistance Toilet Transfer Goal Contact Guard Assistance Shower Transfer Goal Contact Guard Assistance Days to Meet Goals 25 Frequency of Treatment Other frequency 5x a week Treatment Plan OT Treatment Plan ADL Training,Functional Cognition Training,Functional Mobility,Patient/Family Education,Discharge Planning Discharge Recommendations OT Discharge Recommendations Acute Rehab,SNF vs Acute Rehab Transportation Needs at Discharge Wheelchair/Cabulance
--- NOTE | 2023-12-13 17:26 | P.PN_ITS ---
Subjective Subjective Date Patient Seen: 12/13/23 Time Patient Seen: 09:30 Interval history: CC: confusion Working with therapy they are recommending rehab. She is still confused but verbal. Appetite is ok. Exam Vital Signs (past 8 hours): - 12/13/23 12:00 Temperature 97.0 F L Pulse Rate 67 Respiratory Rate 16 Blood Pressure 139/100 H Pulse Oximetry 95 Oxygen Flow Rate 0 Oxygen Delivery Method Room Air Oxygen Flow Rate 0 Narrative Exam Narrative: sitting in bed resting comfortably Cardio Other: regular rate s1/s2 GI Other: soft nontender active bowel sounds Neuro Other: alert and interactive - slowed speech production she is oriented and does answer sensibly with some word salad some helpless laughing with more complex questions Psych Other: helpless occasionally tearful aspect Objective Labs 12/13/23 05:05 12/13/23 05:05 Labs: Laboratory Results - last 24 hr 12/13/23 05:05 WBC 9.0 RBC 4.77 Hgb 12.4 Hct 38.5 MCV 80.7 MCH 26.0 MCHC 32.2 RDW 17.6 H Plt Count 260 Neut % (Auto) 69.9 Lymph % (Auto) 16.1 L Kenedy % (Auto) 11.2 Eos % (Auto) 2.0 Baso % (Auto) 0.8 Neut # (Auto) 6300 Lymph # (Auto) 1500 Kenedy # (Auto) 1000 H Eos # (Auto) 200 Baso # (Auto) 100 Sodium 135 L Potassium 4.8 Chloride 104 Carbon Dioxide 23 BUN 32 H Creatinine 1.86 H Estimated GFR 26 L BUN/Creatinine Ratio 17.2 Glucose 152 H Calcium 9.7 Total Bilirubin 0.4 AST 25 ALT 17 Alkaline Phosphatase 158 H Total Protein 7.4 Albumin 3.7 Globulin 3.7 Albumin/Globulin Ratio 1.0 PFSH Medical History Noncompliant neurogenic bladder Urinary incontinence, mixed Nephrolithiasis Postmenopausal atrophic vaginitis Ureteral obstruction, left MORGAN on CPAP Obstructive uropathy History of recurrent UTI (urinary tract infection) Gross hematuria Pneumothorax Peptic ulcer disease Depression Anxiety GI bleed Calculus of kidney HTN (hypertension) Hypothyroid Surgical History History of thyroidectomy Nephrostomy status Hx of cystoscopy (08/04/19) H/O mastectomy History of hip replacement H/O gastric bypass History of back surgery Hx of bilateral cataract extraction (2012) Family History Father Seizures Mother Heart disease Diabetes mellitus Brother No significant medical problems Sister Diabetes mellitus Grandmother Diabetes mellitus Social History household members: spouse Smoking Status: Never smoker alcohol intake: never eating out: rarely or never Type(s) of exercise: none Assessment & Plan Assessment & Plan narrative: 88yo F with indwelling nephrostomies presents with acute confusion found to have frontal stroke #New stroke/CVA New frontal malacia noted on CT was not noted on August scan; MRI shows new frontal infarct of uncertain age, likely acute given presentation. PT OT and speech therapy have been consulted and recommend rehab. Patient was started on aspirin and atorvastatin. Echo obtained. #hx of afib #hx of GI bleed discussed this with patient and family - she has not been on anticoagulants since GI bleed hospitalization fiasco. Not taking any NSAIDs. Strongly averse to any more strokes. On balance will opt to resume treatment with low dose eliquis under monitoring. doing ok after one day on eliquis 2.5 bid - continue. #hx of nocturnal torsades (three nights ago) and asystolic pause (two nights ago) concerning cardiac events in setting of recent stroke which have resolved on their own without any instigation or amelioration that could be ascertained. monitor. #aphasia new issue since stroke #UTI #chronic indwelling nephrostomy #chronic kidney disease stage 4 treated 3 days with rocephin, continue to encourage hydration, suspect this is incidental. #acquired hypothyroidism stable continue home 88mcg dose #hx of diabetes, diet controlled not on meds, monitor #hx of gerd stable continue PPI #hx of hyperlipidemia stable on home statin, noted Dispo: Inpt status, CM working on rehab PCP: Adi MDM: Daughter code: DNR/DNI Time-Based Coding :: [TOTAL MINUTES] spent with patient and on the chart (including review of chart, obtaining history, exam, reviewing outside data, placing orders, documenting exam and treatment plan, and counseling patient) on [DATE]. Quality VTE Deep Vein Thrombosis/Pulmonary Embolism Present on Admission: No
[2023-12-13] MEDS: ASPIRIN EC 81 MG TABLET PO (17:53)
[2023-12-13 20:00] VITALS: BP 130/68; PULSE 73; RESP 16; TEMP 36.2; O2SAT 95
[2023-12-13] MEDS: ATORVASTATIN 20 MG TABLET 40 MG PO (20:13)
[2023-12-14] VITALS: BP 161/69; PULSE 65; RESP 20; TEMP 36.2; O2SAT 97
[2023-12-14 04:00] VITALS: BP 137/52; PULSE 63; RESP 20; TEMP 36.5; O2SAT 95
[2023-12-14] MEDS: HYDROCODONE/ACET 5/325 TABLET 1 TAB PO (05:47)
[2023-12-14] MEDS: LEVOTHYROXINE 88 MCG TABLET PO (05:47)
[2023-12-14 08:00] VITALS: BP 198/68; PULSE 60; RESP 20; TEMP 36.4; O2SAT 95
[2023-12-14] MEDS: METOPROLOL IR 25 MG TABLET PO ×2 (10:00→20:53)
[2023-12-14] MEDS: ASPIRIN EC 81 MG TABLET PO (10:00)
[2023-12-14] MEDS: ACETAMINOPHEN 325 MG TABLET 650 MG PO (10:00)
[2023-12-14] MEDS: APIXABAN 5 MG TABLET 2.5 MG PO ×2 (10:01→20:53)
--- NOTE | 2023-12-14 10:40 | PT.IPTN ---
Current Diagnoses Cerebral infarction, unspecified (12/11/23) Physical Therapy Treatment Note M2 PT-IP Current Condition Start: 12/10/23 10:27 Freq: NEEDED Status: Active Protocol: Document 12/10/23 12:02 MB (Rec: 12/10/23 12:45 MB [id number]) Physical Therapy Current Condition Current Condition Evaluation Date 12/10/23 Treatment Diagnosis Confusion M3 PT-IP Subjective Start: 12/10/23 10:27 Freq: NEEDED Status: Active Protocol: Document 12/14/23 11:05 TS (Rec: 12/14/23 11:13 TS [id number]) Subjective Physical Therapy Visit Type Type Treatment Note Visit Start Time 10:40 Visit Stop Time 11:00 Number of MAKE [employer] MECH[employer]IC Visits 4 Physical Therapy Visit Comments Patient Comments Pt found resting in bed, she is confused and non-verbal, tends to laugh when asked questions or provided with instructions. M4 PT-IP Mobility and Gait Start: 12/10/23 10:27 Freq: NEEDED Status: Active Protocol: Document 12/14/23 11:05 TS (Rec: 12/14/23 11:13 TS [id number]) PT-Bed Mobility Assessment Supine to Sit Supine to Sit Maximum Assistance,1 Person Assistance Scooting Scooting to Edge of Bed Maximum Assistance PT-Transfer Assessment Sit to and From Stand Sit to and from Stand Minimal Assistance,1 Person Assistance Equipment Transfer Assistive Device Gait Belt,Front Wheeled Walker Orthotic/Prosthetic Devices or Brace: No Comments Mobility Comments Supine to sit MaxA with use of transfer pad, pt has difficulty initiating mobility and following instructions. STS with FWW Damien. She ambulates with a slow gait ~20 ' CGA/Damien with cues for FWW management. Pt was left in chair, all needs met. Gait Assessment Gait Gait Assistance Required: Contact Guard Assist,Minimum Assistance,1 Person Assist Distance (Feet) 20 Able to Maintain Weight Bearing Status Yes During Gait Assistive Devices Assistive Device Gait Belt,Front Wheeled Walker Gait Deviations General Gait Pattern Decreased Stride Length, Decreased Feet Clearance, Flexed Trunk,Wide Based Gait Factors Limiting Gait Function Factors Limiting Gait Function Decreased Activity Tolerance, Decreased Strength,Difficulty Following Directions,Poor Balance,Poor Safety Awareness PT-Balance Assessment Sitting Balance and Reactions Static Sitting Balance Ability Good Dynamic Sitting Balance Ability Fair Standing Balance and Reactions Static Standing Balance Ability Fair Dynamic Standing Balance Ability Poor Device Used FWW M5 PT-IP Objective Assessments Start: 12/10/23 10:27 Freq: NEEDED Status: Active Protocol: Document 12/10/23 12:02 MB (Rec: 12/10/23 12:45 MB [id number]) Orientation Orientation/Cognition Level of Alertness Confusional State Orientation Name,Birthday,Month,Date,Year, Place,Situation Language Function Ability No Deficits Noted Safety Awareness Decreased Safety Awareness Memory Description No Deficits Noted Comments Pt is a poor historian as far as PLOF Gross Range of Motion Upper Extremity ROM Assessment Right Impaired Impairments Defer to OT but pt presents with right shoulder AROM limitations and painful movement Lower Extremity ROM Assessment Within Functional Limits Strength Lower Extremity Strength Knee B knee extension 4+/5 Ankle B ankle DF and great toe extension 4/5 Coordination Assessment Assessment Heel on Rivera Test Minimal Impairment Sensation Assessment Comments Sensation Comments Pt denies paresthesias M6 PT-IP Treatment Start: 12/10/23 10:27 Freq: NEEDED Status: Active Protocol: Document 12/14/23 11:05 TS (Rec: 12/14/23 11:13 TS [id number]) Physical Therapy Treatment Education Education Provided Safety M7 PT-IP Assessment and Plan Start: 12/10/23 10:27 Freq: NEEDED Status: Active Protocol: Document 12/14/23 11:05 TS (Rec: 12/14/23 11:13 TS [id number]) PT Summary Assessment and Plan Potential Rehabilitation Potential Fair Summary Impairments Pain,Balance,Cognition,Bed Mobility,Transfers,Gait, Activity Tolerance Progress Towards Goals Slow Progress due to Medical Issues,Slow Progress due to Activity Tolerance Assessment Summary Latonia continues to make slow progress with her mobility. She requires increased for bed mobility this session. She progressed her gait to ~20' with use of FWW. She has difficulty initiating mobility and following instructions. PT continues to recommend SNF vs Acute. Goals Bed Mobility Goal Independent Transfer Goal Independent,Front Wheeled Walker,Four Wheeled Walker Gait Goal Independent,Front Wheel Walker ,Four Wheel Walker Gait Distance 100 Days to Meet Goals 5 Frequency of Treatment Frequency Of Treatment Once a Day Treatment Plan Physical Therapy Treatment Plan Bed Mobility Training,Transfer Training,Gait Training, Therapeutic Exercise,Balance Retraining,Discharge Planning, Hot or Cold Pack,Neuromuscular Re-ed,Coordination Retraining ,Manual Therapy Recommendations To Nursing Amount of Assist Needed 2 Person Assist Discharge Recommendations PT Discharge Recommendations SNF Rehab,Acute Rehab,SNF vs Acute Rehab Transportation Needs at Discharge Private Vehicle,Wheelchair/ Cabulance
--- NOTE | 2023-12-14 11:26 | CM.DPC ---
Addendum entered by BIANCA Woodward 12/14/23 15:20: DCP spoke with pt daughter, Camila, discussed discharge plans changing from [facility] to [facility]. Pt daughter in agreement that pt should be transferred where bed available. DCP spoke with [facility] admissions, Toribio, who confirmed that pt can be accepted on Sunday, 12/15, for an acceptance time of 1500 (requesting transport scheduled at 1400 from ). Facility Address: [address] [place] [address]. [place] [address] RN to RN report phone number: [phone] DCP sent additional requested documentation (dietary progress note) to [facility]. DCP notified Provider and RN of discharge plans for Sunday at approximately 1400, verbalized understanding. DCP discussed with pt RN about transportation. Per PT/OT notes, wheelchair or private vehicle appropriate but RN states cueing is difficult for pt and a wheelchair transport is more appropriate. DCP to discuss this with pt daughter. [facility] does not provide transport. TEMO Madrigal Original Note: DCP Continued: Reviewed EMR and team rounds for pt?s medical status. Per [facility] Admissions, pt was not accepted for acute rehab due to no bed availability. It is reported that the earliest they can accept is Sunday, 12/17. DCP notified Provider, bed search for acute rehab to continue. DCP called [facility] and spoke with Toribio Dolan (ph# [phone]). It is reported there are available beds and they can review patient. DCP sent clinical packet for review via [employer]. DCP notified pt RN that pt is not discharging today to [facility] and pending acceptance at possibly another facility. [facility] referral still in place due to pending bed search. Plan: Anticipating Acute rehab, pending acceptance. CM Team will continue to follow for coordination of discharge plans. TEMO Madrigal
[2023-12-14 12:00] VITALS: BP 129/42; PULSE 62; RESP 16; TEMP 36.2; O2SAT 97
--- NOTE | 2023-12-14 12:13 | ST.IPDYTX ---
Visit Care Team Role Provider Type Rosales Veronica DO Emergency Provider Physician Referring Provider Specialty: Emergency Medicine Address: [address] [place] [address], [address] Email: [email or web address] Sd Joshi MD Attending Provider Physician Primary Care Provider Specialty: [facility] Practice Address: [facility] [place], [address] Email: [email or web address] Shawn Conrad MD Admit Provider Physician Other Providers Specialty: Family Practice Address: [address] [place] [address], [address], [place], [address] Email: [email or web address] WIPING RAG WASHER Dysphagia Treatment WIPING RAG WASHER Dysphagia Treatment Start: 12/12/23 16:43 Freq: Status: Active Protocol: Document 12/14/23 11:55 SS (Rec: 12/14/23 12:12 SS [id number]) Dysphagia Treatment Session Time Visit Start Time 11:23 Visit Stop Time 11:48 Total Visit Minutes 25 Visit Information Visit Number 2 Setting Assessment Location Acute Care Visit Type Note Type Treatment Note Next Note Type Next Note Type Treatment Note Patient Information Identification Type Name,ID Wristband Subjective Observations Chart reviewed and RN consulted. RN reported good tolerance of soft and bite- sized texture and thin liquids given 1:1 assist and supervision. No change in overall cognitive function. Pt leaning back in armchair upon WIPING RAG WASHER arrival, and benefited from assistance to sit more upright. No change in cognitive function noted. Pt continues to be primarily nonverbal today, though able to track WIPING RAG WASHER's movements. She did not respond to yes/no or wh-questions on this date, though produced x2 utterances (I already had breakfast and I like your eyes). She did not respond to 1-step commands today. She did not benefit from use of santacruz word writing, gestures, or visual cueing with physical objects to enhance overall expressive and comprehensive language skills. Treatment Liquids Trialed Thin (IDDSI 0) Solids Trialed Soft & Bite-sized (IDDSI 6), Easy to Chew (IDDSI 7) Administration Type Cup Single Sip,Straw,Self- Feeding Oral Strategies Upright at 90 degrees,Lingual Sweep,Controlled Bite/Sip Size Treatment Activities Therapeutic trials of thin liquids, soft and bite-sized, and easy to chew textures with dynamic assessment of s/sx of dysphagia. Communicated with RN re: POC and recommendations . The IDDSI Framework Protocol: IDDSI.1 Assessment Patient Response to Treatment Poor Rehab Potential Fair Assessment of Improvement No change noted in pt?s overall alertness and responsiveness. During therapeutic trials of thin liquids, pt demonstrated good oral acceptance and AP transit appeared to be WFL. She demonstrated consistent s/sx of penetration/aspiration with straw sips re: immediate strong cough. Pt with tendency to take large sequential sips, with difficulty utilizing small single sips without max verbal cuing. Given sips from cup with verbal cueing to utilize single sips to control flow and reduce sip size, pt did not demonstrate overt s/sx of aspiration. However, unable to rule out silent aspiration without an instrumental. Recommend ot utilize controlled flow cup with all liquids. Given current cognitive status, she will benefit from 1:1 supervision and assistance to adhere to taking small single sips. Given solid textures, she demonstrated adequate labial seal, mastication was mildly disorganized and prolonged, and AP transit appeared to be slowed. She demonstrated no oral holding on this date and increased ability to clear small amount of oral residue with lingual sweep. Pt's ability to consume solids and liquids safely continues to be impacted by her decreased cognitive ability. Continue with soft and bite-sized texture diet, thin liquids via controlled flow cup only, and pills in puree carrier. If no clinical improvements are made, recommend MBSS early next week to further assess swallow pathophysiology. RN notified of treatment results and recommendations. Continue recommending SNF vs. acute rehab at this time. Recommendations Recommendations Continue Current Diet Liquids Order Thin (IDDSI 0) Diet Order Soft & Bite-sized (IDDSI 6) Medication Recommendations Whole in Carrier Comments Thin in controlled flow cup only Additional Dietary Needs Single Sips,Controlled Sips,No Straws,1:1 Supervision,1:1 Assistance,Encourage to Self- Feed,Reminders to Use Strategies Aspiration Precautions Recommended Precautions Upright at 90 Degrees,Small Bites/Sips,Lingual Sweep,Check for Pocketing Treatment Plan Placement Recommendation after Discharge [facility] Facility, Inpatient Rehab Facility Appropriate for Continued Therapy Yes Therapy Recommendations Continue current diet and oral care protocol. Thin liquids in controlled flow cup only given impulsively with sip size. If no clinical improvements are made, recommend MBSS to further assess swallow pathophysiology .
--- NOTE | 2023-12-14 14:49 | PC.NURSE ---
Patient up in chair for a few hours today, she is a 1:1 feeder and is now using a controlled cup for her drinking as she was having a hard time swallowing her thin liquids. She is resting back in bed now and is not talking much today, but she will giggle randomly. Daughter called to check on patient earlier today.
[2023-12-14 16:00] VITALS: BP 123/54; PULSE 60; RESP 15; TEMP 36.1; O2SAT 98
--- NOTE | 2023-12-14 16:00 | OT.IP.TRT ---
Current Diagnoses Cerebral infarction, unspecified (12/11/23) Occupational Therapy Treatment Note M2 OT-IP Current Condition Start: 12/10/23 14:34 Freq: Status: Active Protocol: Document 12/10/23 14:34 CGR (Rec: 12/10/23 14:47 CGR [id number]) Occupational Therapy Current Condition Current Condition Evaluation Date 12/10/23 Treatment Diagnosis confusion, UTI Diagnosis Onset Date 12/10/23 M3 OT- IP Subjective and Pain Start: 12/10/23 14:34 Freq: Status: Active Protocol: Document 12/14/23 15:59 [facility] (Rec: 12/14/23 16:08 [facility] [id number]) OT- Subjective Occupational Therapy Visit Type Type Treatment Note Visit Start Time 14:58 Visit Stop Time 16:00 Occupational Therapy Visit Comments Patient Comments Pt agreed to take a shower when asked and pointed to yes on the paper. M4 OT- IP ADL's Start: 12/10/23 14:34 Freq: Status: Active Protocol: Document 12/14/23 15:59 [facility] (Rec: 12/14/23 16:08 [facility] [id number]) OT ADL-Dressing General Eval Lower Body Dressing Ability Maximum Assistance Comments OT Dressing Comments Assist for gown, socks, and brief. OT ADL-Bathing Bathing Type Bathing Type Shower General Evaluation Bathing Ability Maximal Assistance Comments OT Bathing Comments Pt tends to perseverated and needing cues to help wash her arms, chest and other body parts. Pt needing tactile cues to initiate the task. M5 OT- IP IADL's Start: 12/10/23 14:34 Freq: Status: Active Protocol: Document 12/11/23 12:35 [facility] (Rec: 12/11/23 12:52 [facility] [id number]) OT-Instrumental Activities of Daily Living Home Safety Awareness Home Safety Comments Pt needing increased time to get her answers out and slow to initiate her movements. Medication Management Medication Management Comments Pt will benefit from assist. Money Management Money Management Comments Pt will benefit from assist as having difficulty to calculate numbers at this time and needing increased time. Meal Preparation Meal Preparation Comments Pt will need assist due to decreased initiation and motor planning at this time. Flour Tester Flour Tester Comments Pt will need assist. M6 OT- IP Functional Cognition Start: 12/10/23 14:34 Freq: Status: Active Protocol: Document 12/14/23 15:59 [facility] (Rec: 12/14/23 16:08 [facility] [id number]) Cognitive Factors Limiting Selfcare Function Cognitive Ability Level of Alertness Alert,Confusional State Attention Span Ability Capable of Focused Attention, Unable to Focus,Unable to Sustain Attention Cognitive Comments Cognitive Assessment Comments Pt able get some word out, The water is too hot, that feels right now. Pt able to follow commands with vc and tactile cues. Pt still has difficulty to initiate movements and gets struck at times and needing physical cues to be able to sit down and placing her hand back on surfaces so able to sit down. M7 OT- IP Mobility and Balance Start: 12/10/23 14:34 Freq: Status: Active Protocol: Document 12/14/23 15:59 [facility] (Rec: 12/14/23 16:08 [facility] [id number]) OT- Bed Mobility Assessment Supine to Sit Supine to Sit Assist Moderate Assistance,2 Person Assistance Sit to Supine Sit to Supine Assist Maximum Assistance,2 Person Assistance OT-Transfer Assessment Sit to and From Stand Sit to and from Stand Moderate Assistance,2 Person Assistance Transfers Transfer Ability Maximum Assistance,2 Person Assistance Technique Transfer Destination Bed,Bedside Commode Devices Transfer Assistive Devices Gait Belt,Front Wheeled Walker Comments Mobility Comments Pt having difficulty to initiate movement and needing tactile cues to help move and assist to help weight shift so able to move. Pt has an easier time to move and initiate on the left side versus right . OT- Balance Assessment Sitting Balance and Reactions Static Sitting Balance Ability Good Dynamic Sitting Balance Ability Fair Standing Balance and Reactions Static Standing Balance Ability Fair Dynamic Standing Balance Ability Poor M8 OT- IP Objective Assessments Start: 12/10/23 14:34 Freq: Status: Active Protocol: Document 12/13/23 15:06 [facility] (Rec: 12/13/23 15:16 [facility] [id number]) OT Strength Comments Strength Comments Pt increased time to initiate movements with right hand and needing initial tactile cue so able to use her hands to take off her glasses. M9 OT- IP Assessment and Plan Start: 12/10/23 14:34 Freq: Status: Active Protocol: Document 12/14/23 15:59 [facility] (Rec: 12/14/23 16:08 [facility] [id number]) OT Summary Assessment and Plan Potential Rehabilitation Potential Fair Analytic Complexity at Evaluation Moderate Summary OT Impairments Strength,Balance,Functional Cognition,Functional Mobility, Grooming,Dressing,Toileting, Bathing,Toilet Transfers, Shower Transfers,Activity Tolerance Progress Towards Goals Progressing Toward Goals,Slow Progress due to Medical Issues ,Slow Progress due to Activity Tolerance,Slow Progress due to Cognition Assessment Summary Pt able to tolerate and help to participate in a shower today. Pt needing MODA X2 to MAX AX 2 with the fww especially as pt tiring. Pt to go to acute rehab when medically stable. Goals Grooming Goal Standby Assistance Dressing Goal Moderate Assistance Toileting Goal Moderate Assistance Bathing Goal Moderate Assistance Toilet Transfer Goal Minimal Assistance Shower Transfer Goal Moderate Assistance Days to Meet Goals 25 Frequency of Treatment Other frequency 5x/week Treatment Plan OT Treatment Plan ADL Training,Functional Cognition Training,Functional Mobility,Patient/Family Education,Discharge Planning Discharge Recommendations OT Discharge Recommendations Acute Rehab,SNF vs Acute Rehab Transportation Needs at Discharge Wheelchair/Cabulance
--- NOTE | 2023-12-14 16:22 | PM.PN.1 ---
Subjective Subjective Date Patient Seen: 12/14/23 Time Patient Seen: 09:15 Interval history: CC: confusion Uneventful night - pt is resting comfortably. Currently working on finding a rehab bed for her maybe on Sunday. Medically stable, appetite is good, working with therapists. Exam Vital Signs (past 8 hours): - 12/14/23 12:00 Temperature 97.2 F L Pulse Rate 62 Respiratory Rate 16 Blood Pressure 129/42 L Pulse Oximetry 97 Oxygen Flow Rate 0 Oxygen Delivery Method Room Air Oxygen Flow Rate 0 Narrative Exam Narrative: resting in bed with TV off Const Other: well nourished well developed HENMT Other: nc/at Resp Other: clear to auscultation bilaterally Cardio Other: regular rate, S1/S2, well perfused no pedal edema GI Other: soft nontender active bowel sounds Other: bilateral nephrostomies draining yellow urine to leg bags Neuro Other: alert oriented with slowed speech production some word salad some confusion aphasia. moving all limbs equally. Psych Other: laughing and crying, glad to see me Objective Labs 12/13/23 05:05 12/13/23 05:05 PFSH Medical History Noncompliant neurogenic bladder Urinary incontinence, mixed Nephrolithiasis Postmenopausal atrophic vaginitis Ureteral obstruction, left MORGAN on CPAP Obstructive uropathy History of recurrent UTI (urinary tract infection) Gross hematuria Pneumothorax Peptic ulcer disease Depression Anxiety GI bleed Calculus of kidney HTN (hypertension) Hypothyroid Surgical History History of thyroidectomy Nephrostomy status Hx of cystoscopy (08/04/19) H/O mastectomy History of hip replacement H/O gastric bypass History of back surgery Hx of bilateral cataract extraction (2012) Family History Father Seizures Mother Heart disease Diabetes mellitus Brother No significant medical problems Sister Diabetes mellitus Grandmother Diabetes mellitus Social History household members: spouse Smoking Status: Never smoker alcohol intake: never eating out: rarely or never Type(s) of exercise: none Assessment & Plan Assessment & Plan narrative: 88yo F with indwelling nephrostomies presents with acute confusion found to have frontal stroke #New stroke/CVA New frontal malacia noted on CT was not noted on August scan; MRI shows new frontal infarct of uncertain age, likely acute given presentation. PT OT and speech therapy have been consulted and recommend rehab, placement is pending. Patient was started on aspirin and atorvastatin. Echo obtained no new structural abnormality. #hx of afib #hx of GI bleed discussed this with patient and family - she has not been on anticoagulants since GI bleed [facility]. Not taking any NSAIDs. Strongly averse to any more strokes. On balance will opt to resume treatment with low dose eliquis under monitoring. doing ok after two days on eliquis 2.5 bid - continue. #hx of nocturnal torsades (three nights ago) and asystolic pause (two nights ago) concerning cardiac events in setting of recent stroke which have resolved on their own without any instigation or amelioration that could be ascertained. #aphasia new issue since stroke does seem to understand me better seeing my mouth #UTI #chronic indwelling nephrostomy #chronic kidney disease stage 4 treated 3 days with rocephin, continue to encourage hydration, suspect this is incidental. #acquired hypothyroidism stable continue home 88mcg dose #hx of diabetes, diet controlled not on meds, monitor #hx of gerd stable continue PPI #hx of hyperlipidemia stable on home statin, noted Dispo: Inpt status, CM working on rehab PCP: Adi MDM: Daughter code: DNR/DNI Time-Based Coding :: [TOTAL MINUTES] spent with patient and on the chart (including review of chart, obtaining history, exam, reviewing outside data, placing orders, documenting exam and treatment plan, and counseling patient) on [DATE]. Quality VTE Deep Vein Thrombosis/Pulmonary Embolism Present on Admission: No
[2023-12-14 20:00] VITALS: BP 136/57; PULSE 61; RESP 20; TEMP 36.6; O2SAT 96
[2023-12-14] MEDS: ATORVASTATIN 20 MG TABLET 40 MG PO (20:53)
[2023-12-14] MEDS: SODIUM CHLORIDE 0.9% FLUSH 10 ML IV (20:58)
[2023-12-15 03:40] VITALS: BP 143/60; PULSE 63; RESP 18; TEMP 37.4; O2SAT 95
[2023-12-15] MEDS: LEVOTHYROXINE 88 MCG TABLET PO (06:07)
[2023-12-15 07:53] VITALS: BP 131/62; PULSE 64; RESP 18; TEMP 36.1; O2SAT 95
[2023-12-15] MEDS: APIXABAN 5 MG TABLET 2.5 MG PO ×2 (09:29→20:56)
[2023-12-15] MEDS: METOPROLOL IR 25 MG TABLET PO ×2 (09:29→20:55)
[2023-12-15] MEDS: ASPIRIN EC 81 MG TABLET PO (09:29)
[2023-12-15] MEDS: SODIUM CHLORIDE 0.9% FLUSH 10 ML IV (09:30)
--- NOTE | 2023-12-15 11:35 | PT.IPTN ---
Current Diagnoses Cerebral infarction, unspecified (12/11/23) Physical Therapy Treatment Note M2 PT-IP Current Condition Start: 12/10/23 10:27 Freq: NEEDED Status: Active Protocol: Document 12/10/23 12:02 MB (Rec: 12/10/23 12:45 MB [id number]) Physical Therapy Current Condition Current Condition Evaluation Date 12/10/23 Treatment Diagnosis Confusion M3 PT-IP Subjective Start: 12/10/23 10:27 Freq: NEEDED Status: Active Protocol: Document 12/15/23 12:03 TS (Rec: 12/15/23 12:11 TS [id number]) Subjective Physical Therapy Visit Type Type Treatment Note Visit Start Time 11:35 Visit Stop Time 12:00 Number of FOOD SERVICE TRAY ATTENDANT Visits 5 Physical Therapy Visit Comments Patient Comments Pt found resting in bed, has some confusion, pt is agreeable to PT. M4 PT-IP Mobility and Gait Start: 12/10/23 10:27 Freq: NEEDED Status: Active Protocol: Document 12/15/23 12:03 TS (Rec: 12/15/23 12:11 TS [id number]) PT-Bed Mobility Assessment Supine to Sit Supine to Sit Maximum Assistance,1 Person Assistance Scooting Scooting to Edge of Bed Maximum Assistance PT-Transfer Assessment Sit to and From Stand Sit to and from Stand Moderate Assistance,1 Person Assistance Equipment Transfer Assistive Device Gait Belt,Front Wheeled Walker Orthotic/Prosthetic Devices or Brace: No Comments Mobility Comments Supine to sit MaxA x1 with HOB elevated, pt does not follow instructions for bed mobility. Pt sat EOB for ~5mins, instructions were given for STS with FWW, pt has difficulty understanding. STS with FWW ModA x1. Pt ambulates ~10' in the room CGA. Pt sat in chair, was left with nursing tending to needs. Gait Assessment Gait Gait Assistance Required: Contact Guard Assist,1 Person Assist Distance (Feet) 10 Able to Maintain Weight Bearing Status Yes During Gait Assistive Devices Assistive Device Gait Belt,Front Wheeled Walker Gait Deviations General Gait Pattern Decreased Stride Length, Decreased Feet Clearance, Flexed Trunk,Wide Based Gait Factors Limiting Gait Function Factors Limiting Gait Function Decreased Activity Tolerance, Decreased Strength,Difficulty Following Directions,Poor Balance,Poor Safety Awareness PT-Balance Assessment Sitting Balance and Reactions Static Sitting Balance Ability Good Dynamic Sitting Balance Ability Fair Standing Balance and Reactions Static Standing Balance Ability Fair Dynamic Standing Balance Ability Fair Device Used FWW M5 PT-IP Objective Assessments Start: 12/10/23 10:27 Freq: NEEDED Status: Active Protocol: Document 12/10/23 12:02 MB (Rec: 12/10/23 12:45 MB [id number]) Orientation Orientation/Cognition Level of Alertness Confusional State Orientation Name,Birthday,Month,Date,Year, Place,Situation Language Function Ability No Deficits Noted Safety Awareness Decreased Safety Awareness Memory Description No Deficits Noted Comments Pt is a poor historian as far as PLOF Gross Range of Motion Upper Extremity ROM Assessment Right Impaired Impairments Defer to OT but pt presents with right shoulder AROM limitations and painful movement Lower Extremity ROM Assessment Within Functional Limits Strength Lower Extremity Strength Knee B knee extension 4+/5 Ankle B ankle DF and great toe extension 4/5 Coordination Assessment Assessment Heel on Rivera Test Minimal Impairment Sensation Assessment Comments Sensation Comments Pt denies paresthesias M6 PT-IP Treatment Start: 12/10/23 10:27 Freq: NEEDED Status: Active Protocol: Document 12/15/23 12:03 TS (Rec: 12/15/23 12:11 TS [id number]) Physical Therapy Treatment Education Education Provided Safety M7 PT-IP Assessment and Plan Start: 12/10/23 10:27 Freq: NEEDED Status: Active Protocol: Document 12/15/23 12:03 TS (Rec: 12/15/23 12:11 TS [id number]) PT Summary Assessment and Plan Potential Rehabilitation Potential Fair Summary Impairments Pain,Balance,Cognition,Bed Mobility,Transfers,Gait, Activity Tolerance Progress Towards Goals Slow Progress due to Medical Issues,Slow Progress due to Activity Tolerance Assessment Summary Latonia continues to make slow progress with her mobility. She continues to have confusion, non-verbal mostly and difficulty following instructions. She requires MaxA for bed mobility and continues to ambulate short distances in the room CGA. PT continues to recommend SNF vs Acute. Goals Bed Mobility Goal Independent Transfer Goal Independent,Front Wheeled Walker,Four Wheeled Walker Gait Goal Independent,Front Wheel Walker ,Four Wheel Walker Gait Distance 100 Days to Meet Goals 5 Frequency of Treatment Frequency Of Treatment Once a Day Treatment Plan Physical Therapy Treatment Plan Bed Mobility Training,Transfer Training,Gait Training, Therapeutic Exercise,Balance Retraining,Discharge Planning, Hot or Cold Pack,Neuromuscular Re-ed,Coordination Retraining ,Manual Therapy Recommendations To Nursing Amount of Assist Needed 2 Person Assist Discharge Recommendations PT Discharge Recommendations SNF Rehab,Acute Rehab,SNF vs Acute Rehab Transportation Needs at Discharge Wheelchair/Cabulance
--- NOTE | 2023-12-15 12:25 | PM.PN.1 ---
Subjective Subjective Date Patient Seen: 12/15/23 Time Patient Seen: 12:25 Interval history: Chief complaint confusion Patient is doing well no complaints today she is eating lunch with supervision seems to be getting it down well continued difficulties expressing herself response to most inquiries with nervous laughter. Some report that her foot was red swollen hot however both of them look pretty normal on exam today. Still exploring placement options likely to [facility] tomorrow. Exam Vital Signs (past 8 hours): - 12/15/23 07:53 Temperature 96.9 F L Pulse Rate 64 Respiratory Rate 18 Blood Pressure 131/62 Pulse Oximetry 95 Oxygen Flow Rate 0 Oxygen Delivery Method Room Air Oxygen Flow Rate 0 Narrative Exam Narrative: Well-developed well-nourished sitting in chair eating lunch with supervision HENMT Other: Normocephalic atraumatic extraocular movements intact Resp Other: Clear to auscultation bilaterally GI Other: Soft nontender nondistended she does have to pay attention to get it down safely Other: Bilateral nephrostomies draining to leg bags Neuro Other: Alert awake less conversant Extrem Other: No pedal edema minimal swelling if any noted denies pain nontender to palpation of feet Objective Labs 12/13/23 05:05 12/13/23 05:05 PFSH Medical History Noncompliant neurogenic bladder Urinary incontinence, mixed Nephrolithiasis Postmenopausal atrophic vaginitis Ureteral obstruction, left MORGAN on CPAP Obstructive uropathy History of recurrent UTI (urinary tract infection) Gross hematuria Pneumothorax Peptic ulcer disease Depression Anxiety GI bleed Calculus of kidney HTN (hypertension) Hypothyroid Surgical History History of thyroidectomy Nephrostomy status Hx of cystoscopy (08/04/19) H/O mastectomy History of hip replacement H/O gastric bypass History of back surgery Hx of bilateral cataract extraction (2012) Family History Father Seizures Mother Heart disease Diabetes mellitus Brother No significant medical problems Sister Diabetes mellitus Grandmother Diabetes mellitus Social History household members: spouse Smoking Status: Never smoker alcohol intake: never eating out: rarely or never Type(s) of exercise: none Assessment & Plan Assessment & Plan narrative: 88yo F with indwelling nephrostomies presents with acute confusion found to have frontal stroke #New stroke/CVA New frontal malacia noted on CT at admission was not noted on August scan; MRI shows new frontal infarct of uncertain age, likely acute given presentation. PT OT and speech therapy have been consulted and recommend rehab, placement is pending. Patient was started on aspirin and atorvastatin. Echo obtained no new structural abnormality. #hx of afib #hx of GI bleed discussed this with patient and family - she has not been on anticoagulants since GI bleed hospitalization fiasco. Not taking any NSAIDs. Strongly averse to any more strokes. On balance will opt to resume treatment with low dose eliquis under monitoring. doing ok after three days on eliquis 2.5 bid - continue. #hx of nocturnal torsades and asystolic pause concerning cardiac events in setting of recent stroke which have resolved on their own without any instigation or amelioration that could be ascertained. Tele discontinued after 2 normal nights. #aphasia new issue since stroke does seem to understand me better seeing my mouth but seems to have both difficulty understanding and expressing herself #UTI #chronic indwelling nephrostomy #chronic kidney disease stage 4 treated 3 days with rocephin, continue to encourage hydration, suspect this is incidental issue compared to stroke. #acquired hypothyroidism stable continue home 88mcg dose #hx of diabetes, diet controlled not on meds, monitor #hx of gerd stable continue PPI #hx of hyperlipidemia stable on home statin, noted Dispo: Inpt status, CM working on rehab placement maybe tomorrow PCP: Adi MDM: Daughter code: DNR/DNI Time-Based Coding :: [TOTAL MINUTES] spent with patient and on the chart (including review of chart, obtaining history, exam, reviewing outside data, placing orders, documenting exam and treatment plan, and counseling patient) on [DATE]. Quality VTE Deep Vein Thrombosis/Pulmonary Embolism Present on Admission: No
[2023-12-15 15:00] VITALS: BP 125/64; PULSE 87; RESP 16; TEMP 36.2; O2SAT 96
--- NOTE | 2023-12-15 15:14 | CM.DPNOTE ---
DONIS Gastelum Spoke with Edwin at [facility] rehab ([place]) P [phone] F [phone]; faxed updated therapy notes, prog note and all imaging done per her request. Faxed MATERIAL HANDLER FLOORPERSON note dated 12/14 - Edwin reports that a therapy note is required within 24 hrs of admission. Edwin confirms patient has been accepted for admission Friday 12/15. DC orders/DC Summary needs to be faxed to F [phone]. Updated provider. Placed call to care e me, [facility] and [facility] (now [facility] to request wheelchair van transport; no one can transport patient Sunday. Placed call to daughter Camila to update on plan and ask about private vehicle options. Camila hopeful she can find a friend to transport patient Sunday, if not, Camila plans to transport her mom to acute rehab in [place]: Facility Address: [address] [place] [address] Updated Nurse to Nurse report number is as follows: P [phone] Plan: Discharge to [facility] rehab anticipated 12/15 via private auto. Patient should leave this hospital approx [phone]. CM team following closely for coordination. ROQUE
[2023-12-15 20:00] VITALS: BP 117/45; PULSE 66; RESP 18; TEMP 36.1; O2SAT 96
[2023-12-15] MEDS: ATORVASTATIN 20 MG TABLET 40 MG PO (20:55)
[2023-12-16] MEDS: LEVOTHYROXINE 88 MCG TABLET PO (06:20)
[2023-12-16 08:00] VITALS: BP 108/36; PULSE 64; RESP 17; TEMP 36.3; O2SAT 97
[2023-12-16] MEDS: METOPROLOL IR 25 MG TABLET PO (09:27)
[2023-12-16] MEDS: ASPIRIN EC 81 MG TABLET PO (09:27)
[2023-12-16] MEDS: APIXABAN 5 MG TABLET 2.5 MG PO (09:27)
[2023-12-16] MEDS: SODIUM CHLORIDE 0.9% FLUSH 10 ML IV (09:28)
--- NOTE | 2023-12-16 10:50 | PM.DS.1 ---
History of Present Illness History of Present Illness Date Patient Seen: 12/16/23 Time Patient Seen: 10:51 Date of Onset of Symptoms: 12/09/23 Chief complaint: confusion Narrative: CC: patty Lincoln is doing ok today. She has been eating with supervision and is tolerating medication changes well. The plan is for transfer to skilled rehab via a friend who is picking her up this afternoon. Her overall functional status is still evolving however because of the frontal location of her stroke impulsivity and communication remain problematic. Discharge Providers Provider Date of admission: 12/11/23 12:43 Discharge Date: 12/16/23 Primary care physician: Sd Joshi MD Consults: 12/10/23 00:37 Consult to Physician Urgent Comment: Consulting Provider: Shawn Conrad Reason for consultation: Admission Has provider been notified: Yes 12/10/23 09:46 Consult to Occupational Therapy Evaluate & Treat Comment: Physician Instructions: Evaluate and treat Consult to Physical Therapy Evaluate & Treat Comment: Physician Instructions: Evaluate and Treat 12/11/23 13:55 Consult to Speech Therapy Evaluate & Treat Comment: Stroke Protocol, dysphasia Physician Instructions: Evaluate and treat Discharge provider: Sd Joshi MD Summary Hospital Course Discharge Diagnosis: #New strokes/CVAs #hx of afib #hx of GI bleed #hx of nocturnal torsades and asystolic pause #aphasia #UTI #chronic indwelling nephrostomy #chronic kidney disease stage 4 #acquired hypothyroidism #hx of diabetes, diet controlled #hx of gerd #hx of hyperlipidemia Hospital Course: Pleasant 88yo pt lives on [address] with and caregivers presented to ED after a normal day dinner with family then suddenly began feeling odd and confused like something went clunk in my brain!. Workup in ED did show a UTI however she is chronically instrumented with bilateral nephrostomies 2/2 chronic ureteral obstruction and says this does not feel like her usual UTIs. Head CT on admission did show some frontal malacia which did nocturnist to be new and MRI the next day did reveal an infarct. Her UTI was treated and she was able to work with therapists who identified various issues that would benefit from skilled rehab. She is fully oriented but having wordfinding difficulties and some word salad. Plan to dc to rehab then f/up with PCP and neuro as outpt. Status at Discharge Cognitive/behavioral status at discharge: confused Functional status at discharge: uses cane/walker Overall status at discharge: patient is not back to baseline Time Spent with Patient Time spent: Greater than 30 minutes Exam Vital Signs (past 8 hours): - 12/16/23 08:00 Temperature 97.4 F L Pulse Rate 64 Respiratory Rate 17 Blood Pressure 108/36 L Pulse Oximetry 97 Oxygen Flow Rate 0 Oxygen Delivery Method Room Air Oxygen Flow Rate 0 Narrative Exam Narrative: Alert sitting up in bed Resp Other: Clear to auscultation bilaterally Cardio Other: Regular rate and rhythm S1-S2 GI Other: Soft nontender active bowel sounds Other: Bilateral nephrostomies draining to a leg bags Neuro Other: Alert awake engaged and minimally conversant but with delayed speech and sometimes does not have verbal response to questions. No lateralizing features no drift no neglect able to follow simple commands. Upset current lack of complex thought gestures to head frustratedly My head was my best feature! Extrem Other: Moving all extremities equally no lateralizing features evident Psych Other: Alternates between nervous laughing and tearful response at gravity of situation. Ability to communicate limited but insight appears pretty good unfortunately. Objective Labs 12/13/23 05:05 12/13/23 05:05 [facility] Medical History Noncompliant neurogenic bladder Urinary incontinence, mixed Nephrolithiasis Postmenopausal atrophic vaginitis Ureteral obstruction, left MORGAN on CPAP Obstructive uropathy History of recurrent UTI (urinary tract infection) Gross hematuria Pneumothorax Peptic ulcer disease Depression Anxiety GI bleed Calculus of kidney HTN (hypertension) Hypothyroid Surgical History History of thyroidectomy Nephrostomy status Hx of cystoscopy (08/04/19) H/O mastectomy History of hip replacement H/O gastric bypass History of back surgery Hx of bilateral cataract extraction (2012) Family History Father Seizures Mother Heart disease Diabetes mellitus Brother No significant medical problems Sister Diabetes mellitus Grandmother Diabetes mellitus Social History household members: spouse Smoking Status: Never smoker alcohol intake: never eating out: rarely or never Type(s) of exercise: none Discharge Assessment & Plan Assessment and Plan Assessment: 88yo F with indwelling nephrostomies presents with acute confusion found to have left frontal stroke #New strokes/CVAs New frontal malacia noted on CT at admission was not noted on August scan; MRI shows new frontal infarct of uncertain age, likely acute given presentation. PT OT and speech therapy have been consulted and recommend rehab, placement is pending. Patient was started on aspirin and atorvastatin. Echo obtained no new structural abnormality. She is very concerned at the implications this has for her future independence and worried about getting by without her complex thoughts. 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 #hx of afib #hx of GI bleed discussed this with patient and family - she has not been on anticoagulants since GI bleed hospitalization fiasco. Not taking any NSAIDs. Strongly averse to any more strokes. On balance will opt to resume treatment with low dose eliquis under monitoring. doing ok on eliquis 2.5 bid - continue. #hx of nocturnal torsades and asystolic pause concerning cardiac events in setting of recent stroke which have resolved on their own without any instigation or amelioration that could be ascertained. Tele discontinued after 2 normal nights. #aphasia new issue since stroke does seem to understand me better seeing my mouth but seems to have both difficulty understanding and expressing herself. #UTI #chronic indwelling nephrostomy #chronic kidney disease stage 4 treated 3 days with rocephin, continue to encourage hydration, suspect this is incidental issue compared to stroke. #acquired hypothyroidism stable continue home 88mcg dose #hx of diabetes, diet controlled not on meds, monitor #hx of gerd stable continue PPI #hx of hyperlipidemia stable on home statin, noted Dispo: Inpt status, CM working on rehab placement maybe tomorrow PCP: Adi MDM: Daughter code: DNR/DNI Discharge Plan Discharge Plan Patient Disposition: Xfer Inpatient Rehab Other facility: [facility] Discharge orders & Medications Discharge Orders: Discharge (Order); Ordered 12/16/23 Ordered By: Sd Joshi Prescriptions: New Eliquis 5 mg Tablet 2.5 mg PO BID Qty: 30 0RF aspirin 81 mg Tablet,Delayed Release (Dr/Ec) 81 mg PO DAILY Qty: 30 0RF Continued gabapentin [Neurontin] 300 MG capsule 900 mg PO TID Qty: 0 atorvastatin 40 mg tablet 40 mg PO DAILY tramadol 50 mg tablet 50 mg PO Q6H PRN (Reason: pain) Qty: 10 0RF levothyroxine 88 mcg tablet 88 mcg PO DAILY metoprolol tartrate 25 mg tablet 25 mg PO BID PreserVision AREDS 2 Plus MV 2 softgel DAILY meloxicam 15 mg tablet 15 mg PO DAILY sodium chloride 0.9 % (flush) [BD PosiFlush Normal Saline 0.9] Syringe 5 ml intra-catheter Q12H Qty: 1000 3RF Discontinued (DME) y-site line connector, closed Misc See Rx Instructions .Route Qty: 1 0RF Rx Instructions: As directed Follow up/Referrals: Sd Joshi MD [Primary Care Provider] - Diet/Activity/Treatments Diet: Carb-consistent/Diabetic Liquid consistency: Normal/Thin Food texture: Soft Diet comment: controlled flow cup, supervised eating, see ST note [facility] Reason for rehabilitation: Therapy following stroke Rehab type: Physical therapy, Occupational therapy and Speech therapy Discharge Data Primary Care Provider: Sd Joshi Quality VTE Deep Vein Thrombosis/Pulmonary Embolism Present on Admission: No
--- NOTE | 2023-12-16 12:12 | CM.DPNOTE ---
Addendum entered by BIANCA Mcdonald 12/16/23 13:21: COVERAGE SPECIALIST RN faxed signed dc sum and speech notes ([phone]) per facility request COVERAGE SPECIALIST RN got vm from accepting doc at [facility] Dr. Day ([phone]). Had med question. Passed along to Dr. Joshi, Dr. Joshi kindly agreed to call Dr. Multani back to answer questions. SL Original Note: DCP Note COVERAGE SPECIALIST RN reviewed EMR Spoke [facility] dtr Camila ([phone]) report friend stefano will transport pt to [facility]. will be here around 2pm. deny other questions at this time. COVERAGE SPECIALIST RN spoke with Lacey from [facility] P [phone] F [phone]). Faxed updated clincials, therapy notes, brain MRI, and head CT per facility request. Will need nurse report, dc order, dc sum, MAR, and signed med list. COVERAGE SPECIALIST RN updated provider/RN. Gave RN report number ([phone]). placed signed med list with RN with other dc information. COVERAGE SPECIALIST RN met with pt in room. revieiwed plan. unclear how much she understood due to communication barriers as a result of the stroke. Brochure in pt's room with address for friend to transport. COVERAGE SPECIALIST RN efaxed dc order, MAR, med list, and dc sum draft. ([phone]). P: pt to dc today to [facility] inpt rehab. transport via friend in POV. CM team will continue to follow as needed BIANCA Mcdonald
--- NOTE | 2023-12-16 14:37 | PC.NURSE ---
Discharge Note Patient A&O, VSS, RA, no complaints of pain/discomfort. Patient agreeable to discharge plan. PIV/TELE discontinued. Patient able to stand and pivot to WC with FWW. Patient and friend assisted to pack all belongings. Patient neprostomy tube dressings change and tubed flushed per MD Joshi verbal order. Patient taken down via wheelchair to POV. Report given to accepting facility, all questions/concerns addressed, will call back if additional questions arise.
== END 2023-12-16 14:00 | DRG 65 ==
LOC: ED 12-10 00:37 → AC 12-10 00:37
PROVIDERS: Family Medicine; Admitting Provider Family Medicine; Emergency Provider Emergency Medicine; PCP Family Medicine; Referring Provider Emergency Medicine; Visit Provider Family Medicine
DX: I63.9 Cerebral infarction, unspecified (principal); N18.4 Chronic kidney disease, stage 4 (severe); N39.0 Urinary tract infection, site not specified; E03.9 Hypothyroidism, unspecified; K21.9 Gastro-esophageal reflux disease without esophagitis; E78.5 Hyperlipidemia, unspecified; E11.22 Type 2 diabetes mellitus with diabetic chronic kidney disease; R47.01 Aphasia; R94.39 Abnormal result of other cardiovascular function study; I12.9 Hypertensive chronic kidney disease with stage 1 through stage 4 chronic kidney disease, or unspecified chronic kidney disease; Z66 Do not resuscitate; Z86.79 Personal history of other diseases of the circulatory system; Z87.19 Personal history of other diseases of the digestive system; Z93.6 Other artificial openings of urinary tract status
CPT/HCPCS: 36415; 70450; 70544; 70549; 70553; 80053; 80320; 81001; 82550; 82962; 83690; 83735; 84443; 84484; 85025; 87077; 87086; 87186; 92523; 92526; 92610; 93005; 93010; 93306; 96365; 97129; 97161; 97166; 97530; 97535; 99284; 99285; G0378; J0696; J1644; J1650; J2060

== ENCOUNTER → 2024-01-29 12:12 | Outpatient (CLI) | payer MEDICARE, OTHER, SELFPAY ==
[2023-07-23 04:37] VITALS: RESP 1
[2023-07-23 10:17] VITALS: PULSE 84; RESP 23; O2SAT 97
[2023-12-10 00:39] VITALS: BMI 43.9
[2024-01-29 12:48] LABS: Hematocrit 39.1 % (36-46); Hemoglobin 12.7 g/dL (12.0-16.0); Mean Corpuscular HGB Conc 32.4 % (30-36); Mean Corpuscular Hemoglobin 27.3 PG (26-34); Mean Corpuscular Volume 84.4 fL (80-100); Platelet Count 284 X10^3/uL (150-400); Red Blood Cell Count 4.63 X10^6/uL (4.0-5.2); Red Cell Distribution Width 21.2 % (11.6-14.8); White Blood Cell Count 10.8 X10^3/uL (4.5-11.0)
[2024-01-29 13:03] LABS: HEMOLYSIS < 15 (0-50); Iron 62 ug/dL (37-170)
[2024-01-29 13:11] LABS: Albumin 4.3 g/dL (3.5-5.0); Blood Urea Nitrogen 36 mg/dL (7-17); Calcium 9.9 mg/dL (8.4-10.2); Carbon Dioxide 23 mmol/L (22-32); Chloride 107 mmol/L (98-107); Estimated Glomerular Filt Rate 25 mL/min (>60); Glucose 104 mg/dL (80-110); HEMOLYSIS < 15 (0-50); Magnesium 2.1 mg/dL (1.6-2.3); Phosphorous 3.8 mg/dL (2.8-4.1); Potassium 4.3 mmol/L (3.4-5.1); Sodium 140 mmol/L (137-145)
[2024-01-29 13:18] LABS: Percent Iron Saturation 22 % (15-50); Total Iron Binding Capacity 288 ug/dL (265-497); Transferrin 266 mg/dL (206-381)
[2024-01-29 13:41] LABS: Ferritin 14 ng/mL (11-264)
[2024-01-29 14:33] LABS: Vitamin D 25 Hydroxy (D3) 54.6 ng/mL (30.0-100.0)
[2024-01-31 07:36] LABS: Parathyroid Hormone Int 90 pg/mL (15-65)
== END ==
PROVIDERS: PCP Family Medicine; Referring Provider Internal Medicine Nephrology; Visit Provider Internal Medicine Nephrology
DX: N18.4 Chronic kidney disease, stage 4 (severe) (principal)
CPT/HCPCS: 36415; 80048; 82040; 82306; 82728; 83540; 83550; 83735; 83970; 84100; 85027